=== PATIENT | female | born 1940 | race Caucasian/White ===

== ENCOUNTER → 2018-02-01 13:59 | Outpatient (CLI) | payer MEDICARE, SELFPAY ==
[2018-02-01 14:05] LABS: Mucous, Urine 0 SEEN /hpf (<or=2+)
[2018-02-01 16:47] LABS: Color, Urine Yellow (Yellow); Glucose, Dipstick 1000 mg/dl (Normal); Ketone-Dipstick Negative (Negative); Leukocyte Esterase-Dipstick 500 /ul (Negative); Nitrite-Dipstick Positive (Negative); Occult Blood-Urine 150 /ul (Negative); Protein-Dipstick 100 mg/dl (Negative); Urine Bilirubin Dipstick Negative (Negative); Urine Clarity Sl. Cloudy (Clear); Urine Urobilinogen Normal (Normal)
[2018-02-01 16:54] LABS: Bacteria 2+ /hpf (None Seen); Red Blood Cells-Urine 0 SEEN /hpf (0-5); Squamous Epithelial Cells - UA 0-5 SEEN /hpf (5-10); White Blood Cells 10-25 SEEN /hpf (0-5)
[2018-02-01 16:57] LABS: Albumin, Serum 4.2 g/dL (3.2-5.0); BUN 24 mg/dL (7-18); BUN/Creat Ratio 16.2 RATIO (10-20); Calcium,Total 9.4 mg/dL (8.5-10.1); Chloride 102 mmol/L (98-107); Creatinine, Serum 1.48 mg/dL (0.55-1.02); EST Glomerular Filtration Rate 36 mL/min (>60); Est Glom Filt Rate - Afr Amer 44 mL/min (>60); Glucose 318 mg/dL (74-106); Phosphorus 2.6 mg/dL (2.5-4.9); Potassium 4.2 mmol/L (3.5-5.1); Sodium Level 136 mmol/L (136-145)
[2018-02-01 17:05] LABS: Protein, Urine (Random) 88.9 mg/dL (<11.9); Protein:Creat Ratio 823 mg/g CRE (0-200)
[2018-02-07 09:57] LABS: Anti-Nuclear Antibody Test Negative (.)
== END ==
PROVIDERS: Visit Provider Internal Medicine Nephrology
DX: N18.3 Chronic kidney disease, stage 3 (moderate) (principal); E11.9 Type 2 diabetes mellitus without complications; R31.21 Asymptomatic microscopic hematuria
CPT/HCPCS: 36415; 80069; 81001; 82570; 84156; 86038

== ENCOUNTER 2018-03-17 07:42 | Inpatient (IN) | payer MEDICARE, MEDICAID, SELFPAY ==
[2018-03-17] VITALS (13 sets, daily range): BP systolic 142–178; BP diastolic 49–80; PULSE 50–67; RESP 14–24; TEMP 36.4–36.6; O2SAT 88–100; BMI 32.5; BMI 32.6; BMI 33.5
--- NOTE | 2018-03-17 09:01 | CT_ITS ---
STUDY: CT BRAIN WITHOUT CONTRAST REASON FOR EXAM: Female, 78 years old. Vertigo and hypertension. RADIATION DOSAGE (If Supplied By Facility): CTDIvol = ( 44.99 ) mGy, DLP = ( 728.62 ) mGycm TECHNIQUE: Transaxial CT imaging of the brain was performed without administration of intravenous contrast material. Individualized dose optimization techniques were used for this CT. COMPARISON: None. FINDINGS: Normal soft tissue structures. There is hyperostosis frontalis internus. There is mild cerebral atrophy with widening of the extra-axial spaces and ventricular dilatation. Normal white matter tracts of the cerebral hemispheres. Normal basal ganglia and thalami. Normal brainstem. Normal cerebellum. There is no intracranial hemorrhage. There are no findings of an acute ischemic infarction. Normal visualized paranasal sinuses. CT/Brain/Head without Contrast IMPRESSION: Chronic involutional changes of the brain. Electronically Signed: Jens Thurman MD at 10:22 EDT Tel [phone], Service support ,
--- NOTE | 2018-03-17 09:01 | RAD_ITS ---
STUDY: X-RAY CHEST REASON FOR EXAM: Female, 78 years old. Chest pain. TECHNIQUE: Single AP portable view of the chest. COMPARISON: None. FINDINGS: EKG electrodes are seen. There is evidence of gastric congestion and a mild degree of CHF. There is no demonstrated pleural abnormality. Sternal cerclage wires and vascular clips are present from a prior sternotomy and coronary artery bypass graft procedure (CABG). Normal mediastinum and holli. Normal visualized pulmonary arteries. Normal visualized aortic arch and descending thoracic aorta. Normal visualized thoracic spine. Normal visualized ribs, clavicles, and shoulders. There is no demonstrated abnormality of the visualized soft tissue structures of the upper abdomen. RAD/Chest 1 View (Portable) IMPRESSION: Findings in keeping with vascular congestion and mild degree of CHF. Electronically Signed: Jens Thurman MD at 10:19 EDT Tel [phone], Service support ,
--- NOTE | 2018-03-17 09:01 | EKG12_ITS ---
Test Reason : DIZZY Blood Pressure : / mmHG Vent. Rate : 059 BPM Atrial Rate : 059 BPM P-R Int : 214 ms QRS Dur : 146 ms QT Int : 506 ms P-R-T Axes : 099 -31 180 degrees QTc Int : 500 ms Sinus bradycardia with 1st degree A-V block Left axis deviation Left bundle branch block Abnormal ECG Confirmed by ALEK EL, SWATHI ([id number]), newspaper managing editor DAMIAN MCCRACKEN ([id number]) on 03/21/2018 3:43:47 PM Referred By: LILA Confirmed By:SWATHI GASTON MD
--- NOTE | 2018-03-17 09:03 | ED.VIS.GEN ---
History of Present Illness Chief Complaint: Dizziness Informant: Patient Onset: Today Context: Gradual Onset Timing: Continuous Quality: spinning Location: head Current Severity: Moderate Maximum Severity: Severe Worsened by: position changes but not by turning head Relieved by: remaining still Associated Symptoms: n/v Narrative: Patient got up out of bed this morning acutely dizzy/vertiginous. In further discussion, she states that this started at midnight but much more mild and she had mild vertigo throughout the night although she was able to sleep. This was about 9 hours prior to arrival, time of onset. She also is having pain in her right hip when she moves both of her legs, she did not fall or injury. For the past several months she has been having carpal tunnel syndrome in her right hand, for the past week or more she has had soreness in her right shoulder, feels like the pain is moving up, this is all worse with movement. She denies any injury of the shoulder or other injury. She denies a headache, recent URI, tinnitus, earache, other ear symptoms. No diplopia or vision changes. No other facial or extremity numbness/weakness other than the pre-existing symptoms in her right upper extremity. - Past Medical History (1) HTN (hypertension) Status: Chronic (2) CAD (coronary artery disease) Status: Chronic (3) Hx of CABG Status: Chronic (4) Carpal tunnel syndrome on right Status: Chronic Past Medical History - Allergies and Home Meds Allergies/Adverse Reactions: Allergies acetaminophen Allergy (Verified 03/17/18 07:43) Vomiting Primary Care Physician: Angus Chapa, JESU-C [Primary Care Provider] - Lives: Alone Smoking Status: Never smoker Review of Systems All systems negative except as indicated General: Reports: Malaise Eyes: Denies: Visual changes - bilaterally, Diplopia ENT: Denies: Bilateral ear pain, Sore throat Cardiovascular: Reports: Chest pain - heaviness, off and on chronically, daily; only there a little right now. tends to be worse w/ exertion. Respiratory: Denies: Dyspnea, Cough Gastrointestinal: Reports: Nausea, Vomiting. Denies: Abdominal pain, Diarrhea Genitourinary: Denies: Dysuria, Hematuria Musculoskeletal: Reports: Extremity Pain - right arm. right wrist. right hip off and on, all worse w/ movement.. Denies: Myalgias, Arthralgias, Neck pain, Back pain Skin: Denies: Rash Neurological: Reports: Parasthesia, Numbness. Denies: Headache, Weakness Physical Exam Vital Signs/Narrative: Vital Signs Temp Pulse Resp BP Pulse Ox 03/17/18 07:44 97.5 F L 67 18 162/59 H 95 Inital Vital Signs reviewed: Yes General: Well nourished, Well developed, Obese Head: Normocephalic, Atraumatic Eyes: Perrl, EOMI - w/o nystagmus ENT: Moist mucous membranes, No rhinorrhea, TM's clear. Negative for: Sinus tenderness Neck: Supple, Nontender, No JVD Cardiovascular: Regular rate, Regular rhythm, No murmurs Respiratory: No distress, CTA bilaterally, Chest nontender Abdomen: Soft, Nontender, Nondistended, Normal bowel sounds Back: Nontender, Normal Inspection. Negative for: CVA tenderness, Spinal tenderness Extremities: Nontender, Edema - 1+ bLE, - - positive tinels right medial tunnel. positive phalen. Skin: Normal color, No rash Neurological: Alert, Oriented x3, Cranial nerves II-XII grossly intact, Parasthesia - all right fingers including 5th, worst in thumb., Weakness - BLE - pt states due to pain in right hip w/ lifting Psychological: Normal affect Diagnostic/Tx/Re-eval Impressions Brain CT 03/17/18 09:01 IMPRESSION: Chronic involutional changes of the brain. Electronically Signed: Jens Thurman MD at 10:22 EDT Tel [phone], Service support , Chest X-Ray 03/17/18 09:01 IMPRESSION: Findings in keeping with vascular congestion and mild degree of CHF. Electronically Signed: Jens Thurman MD at 10:19 EDT Tel [phone], Service support , 03/17/18 09:01 Brain/Head without Contrast [CT] Stat Chest 1 View (Portable) [RAD] Stat Laboratory Results 03/17/18 03/17/18 03/17/18 Range/Units 09:10 09:10 10:05 WBC 7.0 (4.4-11.0) K/mm3 RBC 3.93 L (4.2-5.4) M/mm3 Hgb 11.9 L (12.0-15.0) g/dl Hct 36.3 L (37-47) % MCV 92.4 (81-99) fL MCH 30.3 (27.0-32.0) pg MCHC 32.8 (32-36) g/gl RDW 13.5 (11.6-14.6) % RDW Differential 44.5 H (35.1-43.9) fl Plt Count 243 (150-450) K/mm3 MPV 10.8 (6.2-12.0) fl Immature Gran % (Auto) 0.300 (0.0-0.9) % Neut % (Auto) 73.8 H (47-70) % Lymph % (Auto) 17.3 L (19-41) % [place] % (Auto) 5.7 (0-10) % Eos % (Auto) 2.3 (0-5) % Baso % (Auto) 0.6 (0-1) % Absolute Neuts (auto) 5.2 (2.0-7.7) X10^3/uL Absolute Lymphs (auto) 1.21 (0.83-4.51) X10^3/ul Total Counted Not Reportable Sodium 138 (136-145) mmol/L Potassium 4.1 (3.5-5.1) mmol/L Chloride 105 (98-107) mmol/L Carbon Dioxide 25.0 (21.0-32.0) mmol/L Anion Gap 8 (5-15) BUN 21 H (7-18) mg/dL Creatinine 1.38 H (0.55-1.02) mg/dL Estim Creat Clear Calc 29.48 ml/min Est GFR (MDRD) Af Amer 48 L (>60) mL/min Est GFR (MDRD) Non-Af 39 L (>60) mL/min BUN/Creatinine Ratio 15.2 (10-20) RATIO Glucose 160 H (74-106) mg/dL Calcium 8.8 (8.5-10.1) mg/dL Troponin I < 0.015 (<0.045) ng/mL Urine Color Yellow (Yellow) Urine Clarity Cloudy (Clear) Urine pH 6.5 (5.0 - 8.0) Ur Specific [place] 1.010 (1.002-1.030) Urine Protein 30 H (Negative) mg/dl Urine Glucose (UA) Normal (Normal) mg/dl Urine Ketones Negative (Negative) mg/dl Urine Occult Blood 25 H (Negative) /ul Urine Nitrite Positive H (Negative) Urine Bilirubin Negative (Negative) mg/dL Urine Urobilinogen Normal (Normal) mg/dl Ur Leukocyte Esterase 100 H (Negative) /ul Urine RBC 0 SEEN (0-5) /hpf Urine WBC 0-5 SEEN (0-5) /hpf Ur Squamous Epith Cells 0-5 SEEN (5-10) /hpf Urine Bacteria 3+ (None Seen) /hpf Urine Mucus 0 SEEN (<or=2+) /hpf - Rhythm Strip Rhythm Strip: Sinus Rhythm Rate: 60 Ectopy: None - EKG 1 Interpretation: Sinus Rhythm, No Acute Injury Pattern, LBBB Prior: Unchanged - Medical Decision Making Other than chronic renal insufficiency, chronic involutional changes of the brain, and chest x-ray consistent with venous congestion although she has had no dyspnea or orthopnea, her workup is unremarkable. Her EKG shows a left bundle branch block which is unchanged compared with her prior. Her symptoms are mostly consistent with peripheral vertigo. She is hypertensive, that could be related to her feeling uncomfortable, not having her blood pressure medications this morning yet, or it could be related to vertigo if it was central. Her symptoms do get worse with position changes, although she has no horizontal nystagmus and turning her head does not change anything. She was given Valium and a half dose of Phenergan, she is somnolent but easily arousable and her symptoms are improved, however with attempting to walk her, she got to the side of the bed and was miserably vertiginous. Will admit. ED Disposition - Plan for ED Patient: Disposition: Acute Care [facility] Chief Complaint: Upper Extremity Injury Diagnosis: Vertigo, peripheral, Carpal tunnel syndrome on right, Chest pain, unspecified
[2018-03-17] MEDS: proMETHazine 25 MG/ML Syringe 6.25 MG IV (09:21)
[2018-03-17] MEDS: diazePAM 5 MG Tablet PO (09:21)
[2018-03-17 09:28] LABS: Absolute Lymphocyte Count 1.21 X10^3/ul (0.83-4.51); Absolute Neutrophil Count 5.2 X10^3/uL (2.0-7.7); Basophil# 0.04 X10^3/uL; Basophil% 0.6 % (0-1); Eosinophil# 0.16 X10^3/uL; Eosinophils% 2.3 % (0-5); Hematocrit 36.3 % (37-47); Hemoglobin 11.9 g/dl (12.0-15.0); Lymphocyte # 1.21 X10^3/ul (4.0); Lymphocyte % 17.3 % (19-41); Mean Corp Hgb Conc 32.8 g/gl (32-36); Mean Corpuscular Hgb 30.3 pg (27.0-32.0); Mean Corpuscular Volume 92.4 fL (81-99); Mean Platelet Vol. 10.8 fl (6.2-12.0); Monocyte% 5.7 % (0-10); Neutrophil # 5.17 X10^3/uL (2.7-7.7); Neutrophil % 73.8 % (47-70); Platelet Count 243 K/mm3 (150-450); RBC Distribution Width CV 13.5 % (11.6-14.6); RBC Distribution Width SD 44.5 fl (35.1-43.9); Red Blood Count 3.93 M/mm3 (4.2-5.4)
[2018-03-17 09:36] LABS: Anion Gap 8 (5-15); BUN 21 mg/dL (7-18); BUN/Creat Ratio 15.2 RATIO (10-20); Calcium,Total 8.8 mg/dL (8.5-10.1); Chloride 105 mmol/L (98-107); Creatinine, Serum 1.38 mg/dL (0.55-1.02); EST Glomerular Filtration Rate 39 mL/min (>60); Est Glom Filt Rate - Afr Amer 48 mL/min (>60); Estimated Creatinine Clearance 29.48 ml/min; Glucose 160 mg/dL (74-106); Potassium 4.1 mmol/L (3.5-5.1); Sodium Level 138 mmol/L (136-145)
[2018-03-17 09:37] LABS: POSITIVE COUNT NO; POSITIVE DIFFERENTIAL NO; POSITIVE MORPHOLOGY NO
[2018-03-17 10:14] LABS: Mucous, Urine 0 SEEN /hpf (<or=2+); Red Blood Cells-Urine 0 SEEN /hpf (0-5)
[2018-03-17 10:16] LABS: Color, Urine Yellow (Yellow); Glucose, Dipstick Normal (Normal); Ketone-Dipstick Negative (Negative); Leukocyte Esterase-Dipstick 100 /ul (Negative); Nitrite-Dipstick Positive (Negative); Occult Blood-Urine 25 /ul (Negative); Protein-Dipstick 30 mg/dl (Negative); Urine Bilirubin Dipstick Negative (Negative); Urine Clarity Cloudy (Clear); Urine Urobilinogen Normal (Normal); Urine pH 6.5 (5.0 - 8.0)
[2018-03-17 10:21] LABS: Squamous Epithelial Cells - UA 0-5 SEEN /hpf (5-10); White Blood Cells 0-5 SEEN /hpf (0-5)
[2018-03-17 10:22] LABS: Bacteria 3+ /hpf (None Seen)
--- NOTE | 2018-03-17 11:17 | CM.ED ---
Social Work Note Into complete initial assessment as pt is targeted for admission. Introduced self and role at [facility]. The pt reports to live with her sister and brother in law in a ranch style home. She lives in the basement, but the kitchen is upstairs, so she does have to use a flight of stairs. Otherwise she has a bathroom and shower in the basement where her room is. Pt reports to be independent with ADL's. DME consists of a cane (primary), rollator, toiler riser and shower chair. Confirms that her PCP is Dr. Angus Chapa, Denies seeing any specialists. Her preferred pharmacy is [facility] in [place]. She denies having advanced directives and SW offers to provide her with copies to complete. Return with advanced directive documents and pt is being provided pt care. Her daughter, Cathy, is present and requests to speak with SW. States that the pt has been more confused, and that they recently completed advanced directives. She and her brother are both listed. They also completed a Living Will at that time. Request that they bring this documents in if needed. Reports that the pt does have a medical alert button and goes to [facility] 5 days/week. Cathy reports that the pt lost her in early January of this year. States that they have been trying to get everything in order to care for her in the home as long as possible. The pt ultimately wants to go to [facility] when that times comes as this is where her went on hospice and they were pleased with the care. At this time they do not anticipate any needs at discharge. Made aware that RN LURDES or NARCISA is available if needs arise. Shavon Correa, LINE LOCATOR, [employer]
--- NOTE | 2018-03-17 11:35 | NURSING ---
PCU CP, VERTIGO KORAM
--- NOTE | 2018-03-17 11:47 | NURSING ---
PCU OBS DIZZINESS, CP KORAM
--- NOTE | 2018-03-17 11:51 | NURSING ---
DR VILA IN ER
--- NOTE | 2018-03-17 11:55 | NURSING ---
Brenda notified patient may transfer to PCU.
--- NOTE | 2018-03-17 12:20 | MRI_ITS ---
STUDY: MRI BRAIN WITHOUT CONTRAST REASON FOR EXAM: Female, 78 years old. Vertigo TECHNIQUE: Standardized multiplanar fat and water weighted pulse sequences were obtained. COMPARISON: CT of the brain on March 17, 2018 FINDINGS: Mild atrophy and periventricular white matter ischemic changes without mass effect or restricted diffusion.. Normal bilateral basal ganglia. Normal thalami. There is no extra-axial fluid accumulation. Normal flow voids within the major intracranial circulation suggesting patency by spin echo criteria. Empty sella deformity of uncertain clinical significance. Normal, infundibular stalk, optic chiasm and hypothalamus. Normal tectal plate and pineal gland. Normal midbrain, yovana and medulla. Normal cerebellum. Normal basal cisterns. Normal bilateral temporal bones. Normal bilateral internal auditory canals. Increased signal intensity within the right mastoid air cells which may be due to inflammatory changes No demonstrated orbital abnormality, within the constraints of a routine brain study. Normal visualized paranasal sinuses. Normal calvarium and skull base. Normal visualized soft tissue structures. Normal visualized upper cervical spine. MRI/Brain without Contrast IMPRESSION: Minor atrophy and periventricular white matter ischemic changes without evidence for acute infarct. Electronically Signed: Kp Adame MD at 16:28 EDT , Service support ,
--- NOTE | 2018-03-17 12:24 | PCM.HP.STD ---
Problem List (1) Vertigo, peripheral Status: Acute (2) Chest pain, unspecified Status: Acute History of Present Illness Date of Admission: 03/17/18 Chief Complaint: vertigo The patient is a 78 year old F with past medical history of coronary artery disease status post CABG, hypertension, hyperlipidemia, diabetes, carpal tunnel syndrome of the right arm and memory loss. She was admitted via the ED on 03/17/2018 with a complaint of acute onset of vertigo. She states symptoms actually started around midnight but it was mild and woke her up this morning. It was very severe when she woke up this morning and was worsened by her moving her head. She felt like everything was spinning around her. She denied any recent history of upper respiratory symptoms or exposure to an upper respiratory infection. She denied any ear pain, any tinnitus, any hearing loss, any headache, any focal weakness or drooping of her mouth. She has never had such dizziness before in her life. She denied any abnormal movements of her eyelids. She also complained of increased pain along her right upper arm which has been present but had severely worsened and seemed like it was increased painful sensation. She had previously had surgery for right carpal tunnel syndrome in November and she states that with the pain stem from. Persistent nausea and vomiting but denied any diarrhea. Review of systems otherwise negative. In the ED, vitals showed temperature of 97.5 with pulse of 67 and respiratory rate of 18 as well as blood pressure 160/59. CT of the head done showed no acute changes. EKG showed left axis deviation with left bundle branch block. She has been admitted to be worked up for acute for [employer]. [] Past Medical History Past Medical History (Chronic Problems): Chronic Problems HTN (hypertension) (Chronic) CAD (coronary artery disease) (Chronic) Hx of CABG (Chronic) Carpal tunnel syndrome on right (Chronic) Allergies acetaminophen Allergy (Verified 03/17/18 07:43) Vomiting Home Medications: Ambulatory Orders Medication Instructions Recorded Aspirin E.C. [Ecotrin] 81 mg PO DAILY 03/17/18 Atorvastatin Calcium 40 mg PO DAILY 03/17/18 Ergocalciferol [Vitamin D] 50,000 unit PO Q7D 03/17/18 Ferrous Sulfate [Iron] 325 mg PO DAILY 03/17/18 Gabapentin [Neurontin] 300 mg PO QHS 03/17/18 Insulin Detemir [Levemir FlexPen] 30 units SQ DAILY 03/17/18 Levothyroxine Sodium [Synthroid] 112 mcg PO DAILY 03/17/18 Losartan Potassium [Cozaar] 50 mg PO DAILY 03/17/18 Metoprolol Tartrate [Lopressor 50 mg PO BID 03/17/18 (Beta Carloz)] Oxycodone [Oxyir] 5 mg PO Q4H PRN PRN 03/17/18 Surgical History: coronary bypass surgery, - - Right carpal tunnel surgery Psychiatric History: No pertinent psych hx ANIMAL CARE GIVER History: No pertinent ANIMAL CARE GIVER history Lives: Alone, With Family Smoking Status: Never smoker Alcohol: None Drugs: None Review of Systems Constitutional: Reports: Malaise, Weakness. Denies: Chills, Fever, Weight Change Eyes: Denies: Blurred vision, Double vision, Vision Change HEENT: Denies: Difficulty Hearing, Ear Pain, Hard of Hearing, Nasal Congestion, Sore Throat, Visual Changes Cardiovascular: Reports: Chest Pain - Retrosternal burning chest pain with no aggravating or relieving factors.. Denies: Chest Pressure, Chest Tightness, Orthopnea, Palpitations, Paroxysmal Noc. Dyspnea, Syncope Respiratory: Denies: Cough, Shortness of breath at rest, Sputum production Gastrointestinal: Reports: Nausea, Vomiting. Denies: Abdominal Pain Genitourinary: Denies: Dysuria Musculoskeletal: Reports: Arm Pain - Right upper extremity pain which she describes as a painful sensation over the upper aspect of the right arm which has increased acutely since this morning. Chronic pain from carpal tunnel and right upper extremity Skin: Denies: Rash, Wounds Neurological: Reports: Numbness, Tingling. Denies: Balance problems, Blurred vision, Double vision, Change in Speech, Slurred speech, Confusion, Headaches, Incoordination, Tremor, Seizures Psychiatric: Denies: Anxiety, Depression, Homicidal Ideations, Suicidal Ideations VTE Information - Inpt Only VTE Present on Admission: No VTE Mechan Device Prophylaxis: SCD's VTE Pharm Prophylaxis ordered?: Yes Patient Problems: Active and Suspected Problems Vertigo, peripheral (Acute) Chest pain, unspecified (Acute) - Physical Exam General: Alert, Oriented x3, Cooperative, - - Moderate distress from dizziness HEENT: Atraumatic, PERRLA, EOMI, Normocephalic Oral: Moist Mucosa Neck: Supple, No JVD, No Nodes Lungs: Clear to auscultation, Normal air movement, No rhonchi, No wheeze Cardiovascular: Regular rate, Regular Rhythm, Normal S1, Normal S2, No murmurs, - - Mild carotid bruit present bilaterally Abdomen: Bowel Sounds Present, Soft, Non Tender, Non-Distended, No Hepato-splenomegaly Extremities: Capillary Refill Less than 3 Seconds, - - Mild +2 pitting edema bilaterally Skin: No rashes, No breakdown, - Musculoskeletal: No Tenderness to Palpation of Joints or Extremities Lymphatic: No Cervical, Supraclavicular, or Inguinal Adenopathy Neurological: Cranial nerves II-XII grossly intact, Motor Exam 5/5 strength throughout, - - Has hyperesthesia of right upper extremity. Reflexes depressed in all upper extremities 1+. Pronator drift negative. Cerebellar exam WNL. Gait not assessed. Unable to do Mitzi Hallpike testing as patient got uncomfortable even with sitting up. No nystagmus seen. Psych/Mental Status: Anxious Vital Signs Temp Pulse Resp BP Pulse Ox 97.5 F L 53 L 14 142/53 H 88 03/17/18 07:44 03/17/18 11:35 03/17/18 11:35 03/17/18 11:35 03/17/18 11:35 Assessment/Plan All Active Problems Vertigo, peripheral (Acute) Chest pain, unspecified (Acute) Impressions Brain CT 03/17/18 09:01 IMPRESSION: Chronic involutional changes of the brain. Electronically Signed: Jens Thurman MD at 10:22 EDT Tel [phone], Service support , Chest X-Ray 03/17/18 09:01 IMPRESSION: Findings in keeping with vascular congestion and mild degree of CHF. Electronically Signed: Jens Thurman MD at 10:19 EDT Tel [phone], Service support , 03/17/18 09:01 Brain/Head without Contrast [CT] Stat Chest 1 View (Portable) [RAD] Stat 03/17/18 12:20 MRI Brain [Brain without Contrast] [MRI] Urgent Laboratory Results 03/17/18 03/17/18 03/17/18 Range/Units 09:10 09:10 10:05 WBC 7.0 (4.4-11.0) K/mm3 RBC 3.93 L (4.2-5.4) M/mm3 Hgb 11.9 L (12.0-15.0) g/dl Hct 36.3 L (37-47) % MCV 92.4 (81-99) fL MCH 30.3 (27.0-32.0) pg MCHC 32.8 (32-36) g/gl RDW 13.5 (11.6-14.6) % RDW Differential 44.5 H (35.1-43.9) fl Plt Count 243 (150-450) K/mm3 MPV 10.8 (6.2-12.0) fl Immature Gran % (Auto) 0.300 (0.0-0.9) % Neut % (Auto) 73.8 H (47-70) % Lymph % (Auto) 17.3 L (19-41) % [place] % (Auto) 5.7 (0-10) % Eos % (Auto) 2.3 (0-5) % Baso % (Auto) 0.6 (0-1) % Absolute Neuts (auto) 5.2 (2.0-7.7) X10^3/uL Absolute Lymphs (auto) 1.21 (0.83-4.51) X10^3/ul Total Counted Not Reportable Sodium 138 (136-145) mmol/L Potassium 4.1 (3.5-5.1) mmol/L Chloride 105 (98-107) mmol/L Carbon Dioxide 25.0 (21.0-32.0) mmol/L Anion Gap 8 (5-15) BUN 21 H (7-18) mg/dL Creatinine 1.38 H (0.55-1.02) mg/dL Estim Creat Clear Calc 29.48 ml/min Est GFR (MDRD) Af Amer 48 L (>60) mL/min Est GFR (MDRD) Non-Af 39 L (>60) mL/min BUN/Creatinine Ratio 15.2 (10-20) RATIO Glucose 160 H (74-106) mg/dL Calcium 8.8 (8.5-10.1) mg/dL Troponin I < 0.015 (<0.045) ng/mL Urine Color Yellow (Yellow) Urine Clarity Cloudy (Clear) Urine pH 6.5 (5.0 - 8.0) Ur Specific [place] 1.010 (1.002-1.030) Urine Protein 30 H (Negative) mg/dl Urine Glucose (UA) Normal (Normal) mg/dl Urine Ketones Negative (Negative) mg/dl Urine Occult Blood 25 H (Negative) /ul Urine Nitrite Positive H (Negative) Urine Bilirubin Negative (Negative) mg/dL Urine Urobilinogen Normal (Normal) mg/dl Ur Leukocyte Esterase 100 H (Negative) /ul Urine RBC 0 SEEN (0-5) /hpf Urine WBC 0-5 SEEN (0-5) /hpf Ur Squamous Epith Cells 0-5 SEEN (5-10) /hpf Urine Bacteria 3+ (None Seen) /hpf Urine Mucus 0 SEEN (<or=2+) /hpf 78-year-old female with a history of coronary artery disease status post CABG, hypertension, diabetes presented with acute onset of vertigo this morning. 1. Vertigo Onset of vertigo. Aggravated by moving around. No history of vertigo previously Ear examination only positive for dizziness and hyperesthesia of right upper extremity. Reflexes mildly decreased in all extremities. No acute focal neurological impairment on examination. NIH stroke scale- Will admit to PCU with telemetry. EKG showed left axis deviation with left bundle branch block. X-ray was suggestive of congestive heart failure Will check BNP. Labs were otherwise noncontributory. Initial troponin was less than 0.015. CT of the head showed only involutional changes associated with aging and no acute findings In light of patient's acute onset of vertigo no history of it and extensive cardiac history, I am concerned about a vertebrobasilar stroke. Will get MRI of the brain without contrast to assess for vertebrobasilar stroke and rule it out. On aspirin, statin. Will continue. Fall precautions. 2. Atypical chest pain, will want to rule out ACS Please of the burning retrosternal chest pain which is episodic. EKG as documented above initial troponin negative; will cycle and monitor 3. Diabetes mellitus: accuchecks ACHS. Continue home insulin dose 4, Hypertension: controlled. WIll continue home meds 5. Right carpal tunnel syndrome s/p surgery: still complains of pain in RUE. WIll get xray of RUE and monitor. Tyelenol for pain 6. DVT prophylaxis: heparin 8. Code Visit OBSV E&M: 69216 Initial observation care L2
--- NOTE | 2018-03-17 12:35 | HP.PCM_ITS ---
Problem List (1) Vertigo, peripheral Status: Acute (2) Chest pain, unspecified Status: Acute History of Present Illness Date of Admission: 03/17/18 Chief Complaint: vertigo The patient is a 78 year old F with past medical history of coronary artery disease status post CABG, hypertension, hyperlipidemia, diabetes, carpal tunnel syndrome of the right arm and memory loss. She was admitted via the ED on 2017 with a complaint of acute onset of vertigo. She states symptoms actually started around midnight but it was mild and woke her up this morning. It was very severe when she woke up this morning and was worsened by her moving her head. She felt like everything was spinning around her. She denied any recent history of upper respiratory symptoms or exposure to an upper respiratory infection. She denied any ear pain, any tinnitus, any hearing loss, any headache, any focal weakness or drooping of her mouth. She has never had such dizziness before in her life. She denied any abnormal movements of her eyelids. She also complained of increased pain along her right upper arm which has been present but had severely worsened and seemed like it was increased painful sensation. She had previously had surgery for right carpal tunnel syndrome in November and she states that with the pain stem from. Persistent nausea and vomiting but denied any diarrhea. Review of systems otherwise negative. In the ED, vitals showed temperature of 97.5 with pulse of 67 and respiratory rate of 18 as well as blood pressure 160/59. CT of the head done showed no acute changes. EKG showed left axis deviation with left bundle branch block. She has been admitted to be worked up for acute for [employer]. [] Past Medical History Past Medical History (Chronic Problems): Chronic Problems HTN (hypertension) (Chronic) CAD (coronary artery disease) (Chronic) Hx of CABG (Chronic) Carpal tunnel syndrome on right (Chronic) Allergies acetaminophen Allergy (Verified 03/17/18 07:43) Vomiting Home Medications: Ambulatory Orders Medication Instructions Recorded Aspirin E.C. [Ecotrin] 81 mg PO DAILY 03/17/18 Atorvastatin Calcium 40 mg PO DAILY 03/17/18 Ergocalciferol [Vitamin D] 50,000 unit PO Q7D 03/17/18 Ferrous Sulfate [Iron] 325 mg PO DAILY 03/17/18 Gabapentin [Neurontin] 300 mg PO QHS 03/17/18 Insulin Detemir [Levemir FlexPen] 30 units SQ DAILY 03/17/18 Levothyroxine Sodium [Synthroid] 112 mcg PO DAILY 03/17/18 Losartan Potassium [Cozaar] 50 mg PO DAILY 03/17/18 Metoprolol Tartrate [Lopressor 50 mg PO BID 03/17/18 (Beta Carloz)] Oxycodone [Oxyir] 5 mg PO Q4H PRN PRN 03/17/18 Surgical History: coronary bypass surgery, - - Right carpal tunnel surgery Psychiatric History: No pertinent psych hx 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 Denies: Chills, Fever, Weight Change Eyes: Denies: Blurred vision, Double vision, Vision Change HEENT: Denies: Difficulty Hearing, Ear Pain, Hard of Hearing, Nasal Congestion, Sore Throat, Visual Changes Cardiovascular: Reports: Chest Pain - Retrosternal burning chest pain with no aggravating or relieving factors.. Denies: Chest Pressure, Chest Tightness, Orthopnea, Palpitations, Paroxysmal Noc. Dyspnea, Syncope Respiratory: Denies: Cough, Shortness of breath at rest, Sputum production Gastrointestinal: Reports: Nausea, Vomiting. Denies: Abdominal Pain Genitourinary: Denies: Dysuria Musculoskeletal: Reports: Arm Pain - Right upper extremity pain which she describes as a painful sensation over the upper aspect of the right arm which has increased acutely since this morning. Chronic pain from carpal tunnel and right upper extremity Skin: Denies: Rash, Wounds Neurological: Reports: Numbness, Tingling. Denies: Balance problems, Blurred vision, Double vision, Change in Speech, Slurred speech, Confusion, Headaches, Incoordination, Tremor, Seizures Psychiatric: Denies: Anxiety, Depression, Homicidal Ideations, Suicidal Ideations VTE Information - Inpt Only VTE Present on Admission: No VTE Mechan Device Prophylaxis: SCD's VTE Pharm Prophylaxis ordered?: Yes Patient Problems: Active and Suspected Problems Vertigo, peripheral (Acute) Chest pain, unspecified (Acute) - Physical Exam General: Alert, Oriented x3, Cooperative, - - Moderate distress from dizziness HEENT: Atraumatic, PERRLA, EOMI, Normocephalic Oral: Moist Mucosa Neck: Supple, No JVD, No Nodes Lungs: Clear to auscultation, Normal air movement, No rhonchi, No wheeze Cardiovascular: Regular rate, Regular Rhythm, Normal S1, Normal S2, No murmurs, - - Mild carotid bruit present bilaterally Abdomen: Bowel Sounds Present, Soft, Non Tender, Non-Distended, No Hepato- splenomegaly Extremities: Capillary Refill Less than 3 Seconds, - - Mild +2 pitting edema bilaterally Skin: No rashes, No breakdown, - Musculoskeletal: No Tenderness to Palpation of Joints or Extremities Lymphatic: No Cervical, Supraclavicular, or Inguinal Adenopathy Neurological: Cranial nerves II-XII grossly intact, Motor Exam 5/5 strength throughout, - - Has hyperesthesia of right upper extremity. Reflexes depressed in all upper extremities 1+. Pronator drift negative. Cerebellar exam WNL. Gait not assessed. Unable to do [place] Hall[place] testing as patient got uncomfortable even with sitting up. No nystagmus seen. Psych/Mental Status: Anxious Vital Signs Temp Pulse Resp BP Pulse Ox 97.5 F L 53 L 14 142/53 H 88 03/17/18 07:44 03/17/18 11:35 03/17/18 11:35 03/17/18 11:35 03/17/18 11:35 Assessment/Plan All Active Problems Vertigo, peripheral (Acute) Chest pain, unspecified (Acute) Impressions Brain CT 03/17/18 09:01 IMPRESSION: Chronic involutional changes of the brain. Electronically Signed: Jens Thurman MD at 10:22 EDT Tel [phone], Service support , Chest X-Ray 03/17/18 09:01 IMPRESSION: Findings in keeping with vascular congestion and mild degree of CHF. Electronically Signed: Jens Thurman MD at 10:19 EDT Tel [phone], Service support , 03/17/18 09:01 Brain/Head without Contrast [CT] Stat Chest 1 View (Portable) [RAD] Stat 03/17/18 12:20 MRI Brain [Brain without Contrast] [MRI] Urgent Laboratory Results 03/17/18 03/17/18 03/17/18 Range/Units 09:10 09:10 10:05 WBC 7.0 (4.4-11.0) K/mm3 RBC 3.93 L (4.2-5.4) M/mm3 Hgb 11.9 L (12.0-15.0) g/dl Hct 36.3 L (37-47) % MCV 92.4 (81-99) fL MCH 30.3 (27.0-32.0) pg MCHC 32.8 (32-36) g/gl RDW 13.5 (11.6-14.6) % RDW Differential 44.5 H (35.1-43.9) fl Plt Count 243 (150-450) K/mm3 MPV 10.8 (6.2-12.0) fl Immature Gran % (Auto) 0.300 (0.0-0.9) % Neut % (Auto) 73.8 H (47-70) % Lymph % (Auto) 17.3 L (19-41) % [place] % (Auto) 5.7 (0-10) % Eos % (Auto) 2.3 (0-5) % Baso % (Auto) 0.6 (0-1) % Absolute Neuts (auto) 5.2 (2.0-7.7) X10^3/uL Absolute Lymphs (auto) 1.21 (0.83-4.51) X10^3/ul Total Counted Not Reportable Sodium 138 (136-145) mmol/L Potassium 4.1 (3.5-5.1) mmol/L Chloride 105 (98-107) mmol/L Carbon Dioxide 25.0 (21.0-32.0) mmol/L Anion Gap 8 (5-15) BUN 21 H (7-18) mg/dL Creatinine 1.38 H (0.55-1.02) mg/dL Estim Creat Clear Calc 29.48 ml/min Est GFR (MDRD) Af Amer 48 L (>60) mL/min Est GFR (MDRD) Non-Af 39 L (>60) mL/min BUN/Creatinine Ratio 15.2 (10-20) RATIO Glucose 160 H (74-106) mg/dL Calcium 8.8 (8.5-10.1) mg/dL Troponin I < 0.015 (<0.045) ng/mL Urine Color Yellow (Yellow) Urine Clarity Cloudy (Clear) Urine pH 6.5 (5.0 - 8.0) Ur Specific [place] 1.010 (1.002-1.030) Urine Protein 30 H (Negative) mg/dl Urine Glucose (UA) Normal (Normal) mg/dl Urine Ketones Negative (Negative) mg/dl Urine Occult Blood 25 H (Negative) /ul Urine Nitrite Positive H (Negative) Urine Bilirubin Negative (Negative) mg/dL Urine Urobilinogen Normal (Normal) mg/dl Ur Leukocyte Esterase 100 H (Negative) /ul Urine RBC 0 SEEN (0-5) /hpf Urine WBC 0-5 SEEN (0-5) /hpf Ur Squamous Epith Cells 0-5 SEEN (5-10) /hpf Urine Bacteria 3+ (None Seen) /hpf Urine Mucus 0 SEEN (<or=2+) /hpf 78-year-old female with a history of coronary artery disease status post CABG, hypertension, diabetes presented with acute onset of vertigo this morning. 1. Vertigo * Onset of vertigo. Aggravated by moving around. No history of vertigo previously * Ear examination only positive for dizziness and hyperesthesia of right upper extremity. Reflexes mildly decreased in all extremities. No acute focal neurological impairment on examination. * NIH stroke scale- * Will admit to PCU with telemetry. * EKG showed left axis deviation with left bundle branch block. * X-ray was suggestive of congestive heart failure * Will check BNP. Labs were otherwise noncontributory. * Initial troponin was less than 0.015. * CT of the head showed only involutional changes associated with aging and no acute findings * In light of patient's acute onset of vertigo no history of it and extensive cardiac history, I am concerned about a vertebrobasilar stroke. * Will get MRI of the brain without contrast to assess for vertebrobasilar stroke and rule it out. * On aspirin, statin. Will continue. * Fall precautions. * 2. Atypical chest pain, will want to rule out ACS * Please of the burning retrosternal chest pain which is episodic. * EKG as documented above * initial troponin negative; will cycle and monitor * 3. Diabetes mellitus: accuchecks ACHS. Continue home insulin dose 4, Hypertension: controlled. WIll continue home meds 5. Right carpal tunnel syndrome s/p surgery: still complains of pain in RUE. WIll get xray of RUE and monitor. Tyelenol for pain 6. DVT prophylaxis: heparin 8. Code Visit OBSV E&M: 99332 Initial observation care L2
[2018-03-17 13:16] LABS: Bedside Glucose 159 mg/dL (70-110)
[2018-03-17] MEDS: Meclizine HCl 25 MG Tablet PO (13:18)
[2018-03-17] MEDS: proMETHazine 25 MG/ML Syringe 12.5 MG IV (13:18)
--- NOTE | 2018-03-17 15:34 | RAD_ITS ---
STUDY: X-RAY - RIGHT ELBOW REASON FOR EXAM: Female, 78 years old. Pain TECHNIQUE: 2 view(s) of the elbow. COMPARISON: None. FINDINGS: Normal visualized humerus, radius and ulna. Normal radiocapitellar and ulnotrochlear articulations. The soft tissue structures are unremarkable. RAD/Elbow 2 Views IMPRESSION: Normal x-ray examination of the elbow. Electronically Signed: Kp Adame MD at 19:41 EDT , Service support ,
--- NOTE | 2018-03-17 15:43 | RAD_ITS ---
STUDY: X-RAY - RIGHT SHOULDER REASON FOR EXAM: Female, 78 years old. Pain TECHNIQUE: 2 view(s) of the shoulder. COMPARISON: None. FINDINGS: Narrowed glenohumeral articulation. Normal acromioclavicular joint. Normal acromion. Normal humeral head and visualized proximal humerus. The soft tissue structures are unremarkable. Normal visualized pulmonary apex. RAD/Shoulder min 2 Views IMPRESSION: Degenerative changes. No evidence for acute fracture Electronically Signed: Kp Adame MD at 19:40 EDT , Service support ,
--- NOTE | 2018-03-17 15:49 | RAD_ITS ---
STUDY: X-RAY - RIGHT WRIST REASON FOR EXAM: Female, 78 years old. Pain TECHNIQUE: 2 view(s) of the wrist were obtained. COMPARISON: None. FINDINGS: Normal visualized distal radius and ulna. Normal radiocarpal articulation. Normal distal radioulnar articulation. Normal carpal bones. Normal carpal articulations. Normal carpometacarpal articulation of the thumb. Normal second through fifth carpometacarpal articulations. Normal visualized metacarpal bones. Mild calcification of the triangular fibrocartilage.. RAD/Wrist 2 Views IMPRESSION: Mild arthritic changes. No evidence for acute fracture Electronically Signed: Kp Adame MD at 19:40 EDT , Service support ,
[2018-03-17 16:31] LABS: Bedside Glucose 126 mg/dL (70-110)
[2018-03-17] MEDS: 0.9% Normal Saline 1,000 ML 100 ML IV (16:52)
[2018-03-17] MEDS: Heparin Injection (Vial) 5,000 UNIT/ML VIAL 5000 UNIT SC (17:00)
[2018-03-17] MEDS: oxyCODONE 5 MG Tablet PO ×2 (17:00→21:37)
--- NOTE | 2018-03-17 17:24 | ED.DCSUM_ITS ---
History of Present Illness Chief Complaint: Dizziness Informant: Patient Onset: Today Context: Gradual Onset Timing: Continuous Quality: spinning Location: head Current Severity: Moderate Maximum Severity: Severe Worsened by: position changes but not by turning head Relieved by: remaining still Associated Symptoms: n/v Narrative: Patient got up out of bed this morning acutely dizzy/vertiginous. In further discussion, she states that this started at midnight but much more mild and she had mild vertigo throughout the night although she was able to sleep. This was about 9 hours prior to arrival, time of onset. She also is having pain in her right hip when she moves both of her legs, she did not fall or injury. For the past several months she has been having carpal tunnel syndrome in her right hand , for the past week or more she has had soreness in her right shoulder, feels like the pain is moving up, this is all worse with movement. She denies any injury of the shoulder or other injury. She denies a headache, recent URI, tinnitus, earache, other ear symptoms. No diplopia or vision changes. No other facial or extremity numbness/weakness other than the pre-existing symptoms in her right upper extremity. - Past Medical History (1) HTN (hypertension) Status: Chronic (2) CAD (coronary artery disease) Status: Chronic (3) Hx of CABG Status: Chronic (4) Carpal tunnel syndrome on right Status: Chronic Past Medical History - Allergies and Home Meds Allergies/Adverse Reactions: Allergies acetaminophen Allergy (Verified 03/17/18 07:43) Vomiting Primary Care Physician: Angus Chapa, JESU-C [Primary Care Provider] - Lives: Alone Smoking Status: Never smoker Review of Systems All systems negative except as indicated General: Reports: Malaise Eyes: Denies: Visual changes - bilaterally, Diplopia ENT: Denies: Bilateral ear pain, Sore throat Cardiovascular: Reports: Chest pain - heaviness, off and on chronically, daily; only there a little right now. tends to be worse w/ exertion. Respiratory: Denies: Dyspnea, Cough Gastrointestinal: Reports: Nausea, Vomiting. Denies: Abdominal pain, Diarrhea Genitourinary: Denies: Dysuria, Hematuria Musculoskeletal: Reports: Extremity Pain - right arm. right wrist. right hip off and on, all worse w/ movement.. Denies: Myalgias, Arthralgias, Neck pain, Back pain Skin: Denies: Rash Neurological: Reports: Parasthesia, Numbness. Denies: Headache, Weakness Physical Exam Vital Signs/Narrative: Vital Signs Temp Pulse Resp BP Pulse Ox 03/17/18 07:44 97.5 F L 67 18 162/59 H 95 Inital Vital Signs reviewed: Yes General: Well nourished, Well developed, Obese Head: Normocephalic, Atraumatic Eyes: Perrl, EOMI - w/o nystagmus ENT: Moist mucous membranes, No rhinorrhea, TM's clear. Negative for: Sinus tenderness Neck: Supple, Nontender, No JVD Cardiovascular: Regular rate, Regular rhythm, No murmurs Respiratory: No distress, CTA bilaterally, Chest nontender Abdomen: Soft, Nontender, Nondistended, Normal bowel sounds Back: Nontender, Normal Inspection. Negative for: CVA tenderness, Spinal tenderness Extremities: Nontender, Edema - 1+ bLE, - - positive tinels right medial tunnel. positive phalen. Skin: Normal color, No rash Neurological: Alert, Oriented x3, Cranial nerves II-XII grossly intact, Parasthesia - all right fingers including 5th, worst in thumb., Weakness - BLE - pt states due to pain in right hip w/ lifting Psychological: Normal affect Diagnostic/Tx/Re-eval Impressions Brain CT 03/17/18 09:01 IMPRESSION: Chronic involutional changes of the brain. Electronically Signed: Jens Thurman MD at 10:22 EDT Tel [phone], Service support , Chest X-Ray 03/17/18 09:01 IMPRESSION: Findings in keeping with vascular congestion and mild degree of CHF. Electronically Signed: Jens Thurman MD at 10:19 EDT Tel [phone], Service support , 03/17/18 09:01 Brain/Head without Contrast [CT] Stat Chest 1 View (Portable) [RAD] Stat Laboratory Results 03/17/18 03/17/18 03/17/18 Range/Units 09:10 09:10 10:05 WBC 7.0 (4.4-11.0) K/mm3 RBC 3.93 L (4.2-5.4) M/mm3 Hgb 11.9 L (12.0-15.0) g/dl Hct 36.3 L (37-47) % MCV 92.4 (81-99) fL MCH 30.3 (27.0-32.0) pg MCHC 32.8 (32-36) g/gl RDW 13.5 (11.6-14.6) % RDW Differential 44.5 H (35.1-43.9) fl Plt Count 243 (150-450) K/mm3 MPV 10.8 (6.2-12.0) fl Immature Gran % (Auto) 0.300 (0.0-0.9) % Neut % (Auto) 73.8 H (47-70) % Lymph % (Auto) 17.3 L (19-41) % [place] % (Auto) 5.7 (0-10) % Eos % (Auto) 2.3 (0-5) % Baso % (Auto) 0.6 (0-1) % Absolute Neuts (auto) 5.2 (2.0-7.7) X10^3/uL Absolute Lymphs (auto) 1.21 (0.83-4.51) X10^3/ul Total Counted Not Reportable Sodium 138 (136-145) mmol/L Potassium 4.1 (3.5-5.1) mmol/L Chloride 105 (98-107) mmol/L Carbon Dioxide 25.0 (21.0-32.0) mmol/L Anion Gap 8 (5-15) BUN 21 H (7-18) mg/dL Creatinine 1.38 H (0.55-1.02) mg/dL Estim Creat Clear Calc 29.48 ml/min Est GFR (MDRD) Af Amer 48 L (>60) mL/min Est GFR (MDRD) Non-Af 39 L (>60) mL/min BUN/Creatinine Ratio 15.2 (10-20) RATIO Glucose 160 H (74-106) mg/dL Calcium 8.8 (8.5-10.1) mg/dL Troponin I < 0.015 (<0.045) ng/mL Urine Color Yellow (Yellow) Urine Clarity Cloudy (Clear) Urine pH 6.5 (5.0 - 8.0) Ur Specific [place] 1.010 (1.002-1.030) Urine Protein 30 H (Negative) mg/dl Urine Glucose (UA) Normal (Normal) mg/dl Urine Ketones Negative (Negative) mg/dl Urine Occult Blood 25 H (Negative) /ul Urine Nitrite Positive H (Negative) Urine Bilirubin Negative (Negative) mg/dL Urine Urobilinogen Normal (Normal) mg/dl Ur Leukocyte Esterase 100 H (Negative) /ul Urine RBC 0 SEEN (0-5) /hpf Urine WBC 0-5 SEEN (0-5) /hpf Ur Squamous Epith Cells 0-5 SEEN (5-10) /hpf Urine Bacteria 3+ (None Seen) /hpf Urine Mucus 0 SEEN (<or=2+) /hpf - Rhythm Strip Rhythm Strip: Sinus Rhythm Rate: 60 Ectopy: None - EKG 1 Interpretation: Sinus Rhythm, No Acute Injury Pattern, LBBB Prior: Unchanged - Medical Decision Making Other than chronic renal insufficiency, chronic involutional changes of the brain, and chest x-ray consistent with venous congestion although she has had no dyspnea or orthopnea, her workup is unremarkable. Her EKG shows a left bundle branch block which is unchanged compared with her prior. Her symptoms are mostly consistent with peripheral vertigo. She is hypertensive, that could be related to her feeling uncomfortable, not having her blood pressure medications this morning yet, or it could be related to vertigo if it was central. Her symptoms do get worse with position changes, although she has no horizontal nystagmus and turning her head does not change anything. She was given Valium and a half dose of Phenergan, she is somnolent but easily arousable and her symptoms are improved, however with attempting to walk her, she got to the side of the bed and was miserably vertiginous. Will admit. ED Disposition - Plan for ED Patient: Disposition: Acute Care Hospital [facility] Chief Complaint: Upper Extremity Injury Diagnosis: Vertigo, peripheral, Carpal tunnel syndrome on right, Chest pain, unspecified
[2018-03-17] MEDS: Metoprolol Tartrate 50 MG Tablet PO (21:38)
[2018-03-17] MEDS: Gabapentin 300 MG Capsule PO (21:40)
[2018-03-17] MEDS: Insulin Lispro 100 UNIT/ML INSULN.PEN SQ (21:41)
[2018-03-17 23:21] LABS: Bedside Glucose 152 mg/dL (70-110)
[2018-03-18] VITALS (13 sets, daily range): BP systolic 118–152; BP diastolic 39–67; PULSE 44–60; RESP 14–18; TEMP 36.5–36.9; O2SAT 95–98
[2018-03-18] MEDS: oxyCODONE 5 MG Tablet PO ×2 (03:07→21:38)
[2018-03-18] MEDS: Meclizine HCl 25 MG Tablet PO ×2 (03:09→18:01)
[2018-03-18] MEDS: Heparin Injection (Vial) 5,000 UNIT/ML VIAL 5000 UNIT SC ×3 (05:34→21:38)
[2018-03-18] MEDS: Levothyroxine 112 MCG Tablet PO (05:34)
[2018-03-18 06:20] LABS: Absolute Lymphocyte Count 2.41 X10^3/ul (0.83-4.51); Absolute Neutrophil Count 3.1 X10^3/uL (2.0-7.7); Basophil# 0.04 X10^3/uL; Basophil% 0.6 % (0-1); Eosinophil# 0.31 X10^3/uL; Hematocrit 35.1 % (37-47); Hemoglobin 11.1 g/dl (12.0-15.0); Lymphocyte # 2.41 X10^3/ul (4.0); Lymphocyte % 38.9 % (19-41); Mean Corp Hgb Conc 31.6 g/gl (32-36); Mean Corpuscular Hgb 30.2 pg (27.0-32.0); Mean Corpuscular Volume 95.4 fL (81-99); Monocyte# 0.37 X10^3/uL; Neutrophil # 3.06 X10^3/uL (2.7-7.7); Neutrophil % 49.3 % (47-70); Platelet Count 241 K/mm3 (150-450); RBC Distribution Width CV 13.9 % (11.6-14.6); RBC Distribution Width SD 46.3 fl (35.1-43.9); Red Blood Count 3.68 M/mm3 (4.2-5.4); White Blood Count 6.2 K/mm3 (4.4-11.0)
[2018-03-18 06:24] LABS: POSITIVE COUNT NO; POSITIVE DIFFERENTIAL NO; POSITIVE MORPHOLOGY NO
[2018-03-18 06:54] LABS: Anion Gap 7 (5-15); BUN 20 mg/dL (7-18); BUN/Creat Ratio 15.6 RATIO (10-20); Calcium,Total 8.4 mg/dL (8.5-10.1); Chloride 106 mmol/L (98-107); Creatinine, Serum 1.28 mg/dL (0.55-1.02); EST Glomerular Filtration Rate 43 mL/min (>60); Est Glom Filt Rate - Afr Amer 52 mL/min (>60); Estimated Creatinine Clearance 31.78 ml/min; Glucose 144 mg/dL (74-106); Potassium 4.5 mmol/L (3.5-5.1); Sodium Level 138 mmol/L (136-145)
[2018-03-18 07:05] LABS: Bedside Glucose 146 mg/dL (70-110)
[2018-03-18] MEDS: Ferrous Sulfate 325 MG Tablet PO (08:22)
[2018-03-18] MEDS: Aspirin E.C. 81 MG Tablet PO (08:22)
[2018-03-18] MEDS: Metoprolol Tartrate 50 MG Tablet PO ×2 (09:30→21:39)
[2018-03-18] MEDS: Losartan Potassium 50 MG Tablet PO (09:30)
[2018-03-18] MEDS: Atorvastatin Calcium 40 MG Tablet PO (09:30)
--- NOTE | 2018-03-18 11:05 | PCM.PN.HOSP ---
Patient Problems: Active and Suspected Problems Vertigo, peripheral (Acute) Chest pain, unspecified (Acute) Subjective: The patient is a 78 year old F with past medical history of coronary artery disease status post CABG, hypertension, hyperlipidemia, diabetes, carpal tunnel syndrome of the right arm and mild dementia. Admitted via the ED 518 with complaint of severe dizziness and vertigo which is started on morning of admission. She never had such dizziness in her life and denied any history of upper respiratory infection, tinnitus or ear pain. CT of the head was negative for any acute changes. MRI of the brain done to rule out a stroke was also negative. EKG showed left axis recent with left bundle branch block. She has been managed for vertigo due to BPPV. She has remained stable. Patient seen and examined this morning. She states vertigo still the same basilic much more comfortable than she did yesterday. She does complain of right arm pain which is not acute and has been going on for several months. She denies any fever or chills, any cough or chest pain, shortness of breath, any abdominal pain, any diarrhea vomiting. Review of systems otherwise negative. Vitals/I&O's: Vital Signs Temp Pulse Resp BP Pulse Ox 98.1 F 60 18 118/39 L 95 03/18/18 09:27 03/18/18 09:30 03/18/18 09:27 03/18/18 09:27 03/18/18 09:27 Oxygen Flow Rate (L/min) 2 Oxygen Delivery Method Room Air Weight: 195 lb 12.328 oz Body Mass Index (BMI) 33.5 Intake and Output for Last 24 Hours 03/16/18 03/17/18 03/18/18 23:59 23:59 23:59 Intake Total 1034 / 1034 189 / 189 Balance 1034 / 1034 189 / 189 General: Alert, Oriented x3, Cooperative, No apparent distress HEENT: Atraumatic, PERRLA, EOMI, Normocephalic Oral: Moist Mucosa Neck: Supple, No JVD, Negative Carotid Bruits Lungs: Clear to auscultation, Normal air movement, No rhonchi, No wheeze, No rales Cardiovascular: Regular rate, Regular Rhythm, Normal S1, Normal S2, No murmurs Abdomen: Bowel Sounds Present, Soft, Non Tender Extremities: No clubbing, No cyanosis, No edema, Capillary Refill Less than 3 Seconds Skin: No rashes, No breakdown Musculoskeletal: No Tenderness to Palpation of Joints or Extremities Lymphatic: No Cervical, Supraclavicular, or Inguinal Adenopathy Neurological: Cranial nerves II-XII grossly intact, Neuro grossly intact, - - no nystagmus. Still gets dizzy with moving her head, though she looks much better than yesterday. Has reduced power 4/5 in RUE due to pain. Psych/Mental Status: Normal Affect, Appropriate, Alert and oriented to time, place, person, mood and affect Laboratory Results 03/17/18 13:04: POC Glucose 159 H 03/17/18 16:21: POC Glucose 126 H 03/17/18 17:23: Troponin I < 0.015 03/17/18 21:34: POC Glucose 152 H 03/18/18 05:50: WBC 6.2, RBC 3.68 L, Hgb 11.1 L, Hct 35.1 L, MCV 95.4, MCH 30.2, MCHC 31.6 L, RDW 13.9, RDW Differential 46.3 H, Plt Count 241, MPV 11.0, Immature Gran % (Auto) 0.200, Neut % (Auto) 49.3, Lymph % (Auto) 38.9, [place] % (Auto) 6.0, Eos % (Auto) 5.0, Baso % (Auto) 0.6, Absolute Neuts (auto) 3.1, Absolute Lymphs (auto) 2.41, Total Counted Not Reportable 03/18/18 05:50: Sodium 138, Potassium 4.5, Chloride 106, Carbon Dioxide 25.0, Anion Gap 7, BUN 20 H, Creatinine 1.28 H, Estim Creat Clear Calc 31.78, Est GFR (MDRD) Af Amer 52 L, Est GFR (MDRD) Non-Af 43 L, BUN/Creatinine Ratio 15.6, Glucose 144 H, Calcium 8.4 L 03/18/18 06:52: POC Glucose 146 H Current Medications Aspirin (Ecotrin) 81 mg PO DAILY@0800 [facility] Last Admin: 03/18/18 08:22 Dose: 81 mg Atorvastatin Calcium (Lipitor) 40 mg PO DAILY [facility] Last Admin: 03/18/18 09:30 Dose: 40 mg Dextrose (D50w Syringe) 0 gm IV X1 PRN; Protocol PRN Reason: Hypoglycemia Ergocalciferol (Vitamin D) 50,000 unit PO Q7D [facility] Ferrous Sulfate (Ferrous Sulfate) 325 mg PO DAILYCM [facility] Last Admin: 03/18/18 08:22 Dose: 325 mg Gabapentin (Neurontin) 300 mg PO QHS [facility] Last Admin: 03/17/18 21:40 Dose: 300 mg Glucagon () 1 mg IM .X1 PRN PRN Reason: Hypoglycemia Heparin Sodium (Porcine) (Heparin Na) 5,000 unit SC Q8 [facility] Last Admin: 03/18/18 05:34 Dose: 5,000 units Insulin Glargine (Lantus ([facility])) 30 units SC DAILY [facility] Last Admin: 03/18/18 09:30 Dose: 30 units Insulin Human Lispro (Humalog Kwikpen ([facility])) 0 unit SQ ACHS [facility] PRN Reason: Protocol Last Admin: 03/18/18 07:15 Dose: Not Given Levothyroxine Sodium (Synthroid) 112 mcg PO DAILY@0600 [facility] Last Admin: 03/18/18 05:34 Dose: 112 mcg Losartan Potassium (Cozaar) 50 mg PO DAILY [facility] Last Admin: 03/18/18 09:30 Dose: 50 mg Magnesium Hydroxide (Milk Of Magnesia) 30 ml PO DAILY PRN PRN PRN Reason: Constipation Meclizine HCl (Antivert) 25 mg PO BID PRN PRN PRN Reason: Vertigo Last Admin: 03/18/18 03:09 Dose: 25 mg Metoprolol Tartrate (Lopressor (Beta Carloz)) 50 mg PO BID [facility] Last Admin: 03/18/18 09:30 Dose: 50 mg Ondansetron HCl (Zofran) 4 mg IV Q6H PRN PRN PRN Reason: NAUSEA/VOMITING Oxycodone HCl (Oxyir) 5 mg PO Q4H PRN PRN PRN Reason: PAIN Last Admin: 03/18/18 03:07 Dose: 5 mg Promethazine HCl (Phenergan) 12.5 mg IV Q6H PRN PRN PRN Reason: NAUSEA/VOMITING Last Admin: 03/17/18 13:18 Dose: 12.5 mg Sodium Chloride () 5 - 30 ml IV UD PRN PRN Reason: SALINE FLUSH Medical Necessity - Tobacco Use Smoking Status: Never smoker Assessment/Plan All Active Problems Vertigo, peripheral (Acute) Chest pain, unspecified (Acute) 78-year-old female with a history of coronary artery disease status post CABG, hypertension, diabetes presented with acute onset of vertigo 1. Vertigo due to BPPV still complains of dizziness with movement of her head CT head and MRI brain were negative for stroke EKG showed only left axis deviation and LBBB unable to do Mitzi Hallpike manoeuvre and Jessica manouver today, as patient couldnt sit up due to pain in right arm. on zofran for nausea and meclizine CXR was suggestive of heart failure, but BNP was ~ 149. Though she is obese, and so BNP findings is equivocal, she doesnt look clinically fluid overloaded. fall precautions will continue monitoring 2. Atypical chest pain ACS ruled out with negative troponins and EKG will monitor 3. Right carpal tunnel tunnel syndrome s/p surgery had surgery for carpal tunnel syndrome in November still complains of right arm pain which has been going on for months X-ray of the right shoulder showed narrowed glenohumeral articulation with normal acromioclavicular joint and normal acromion and normal humerus. Soft tissues were also unremarkable. tyelenol for pain PT/OT consult. will benefit from therapy 4. Diabetes mellitus: accuchecks ACHS. on lantus sc 30IU daily and ISS 5, Hypertension: controlled. Statin and metoprolol. Will continue. WIll continue home meds 6. Hypothyroidism: On levothyroxine replacement. 7. DVT prophylaxis: heparin Disposition: Patient to be discharged to [facility] pending PT evaluation. States since her she has been alone at home and says been living with relatives. Is currently in the waiting line for [facility]. craps manager to follow-up on that. Code Visit Inpatient E&M: 67751 Subs Hosp L2
--- NOTE | 2018-03-18 11:24 | PN_ITS ---
Patient Problems: Active and Suspected Problems Vertigo, peripheral (Acute) Chest pain, unspecified (Acute) Subjective: The patient is a 78 year old F with past medical history of coronary artery disease status post CABG, hypertension, hyperlipidemia, diabetes, carpal tunnel syndrome of the right arm and mild dementia. Admitted via the ED 518 with complaint of severe dizziness and vertigo which is started on morning of admission. She never had such dizziness in her life and denied any history of upper respiratory infection, tinnitus or ear pain. CT of the head was negative for any acute changes. MRI of the brain done to rule out a stroke was also negative. EKG showed left axis recent with left bundle branch block. She has been managed for vertigo due to BPPV. She has remained stable. Patient seen and examined this morning. She states vertigo still the same basilic much more comfortable than she did yesterday. She does complain of right arm pain which is not acute and has been going on for several months. She denies any fever or chills, any cough or chest pain, shortness of breath, any abdominal pain, any diarrhea vomiting. Review of systems otherwise negative. Vitals/I&O's: Vital Signs Temp Pulse Resp BP Pulse Ox 98.1 F 60 18 118/39 L 95 03/18/18 09:27 03/18/18 09:30 03/18/18 09:27 03/18/18 09:27 03/18/18 09:27 Oxygen Flow Rate (L/min) 2 Oxygen Delivery Method Room Air Weight: 195 lb 12.328 oz Body Mass Index (BMI) 33.5 Intake and Output for Last 24 Hours 03/16/18 03/17/18 03/18/18 23:59 23:59 23:59 Intake Total 1034 / 1034 189 / 189 Balance 1034 / 1034 189 / 189 General: Alert, Oriented x3, Cooperative, No apparent distress HEENT: Atraumatic, PERRLA, EOMI, Normocephalic Oral: Moist Mucosa Neck: Supple, No JVD, Negative Carotid Bruits Lungs: Clear to auscultation, Normal air movement, No rhonchi, No wheeze, No rales Cardiovascular: Regular rate, Regular Rhythm, Normal S1, Normal S2, No murmurs Abdomen: Bowel Sounds Present, Soft, Non Tender Extremities: No clubbing, No cyanosis, No edema, Capillary Refill Less than 3 Seconds Skin: No rashes, No breakdown Musculoskeletal: No Tenderness to Palpation of Joints or Extremities Lymphatic: No Cervical, Supraclavicular, or Inguinal Adenopathy Neurological: Cranial nerves II-XII grossly intact, Neuro grossly intact, - - no nystagmus. Still gets dizzy with moving her head, though she looks much better than yesterday. Has reduced power 4/5 in RUE due to pain. Psych/Mental Status: Normal Affect, Appropriate, Alert and oriented to time, place, person, mood and affect Laboratory Results 03/17/18 13:04: POC Glucose 159 H 03/17/18 16:21: POC Glucose 126 H 03/17/18 17:23: Troponin I < 0.015 03/17/18 21:34: POC Glucose 152 H 03/18/18 05:50: WBC 6.2, RBC 3.68 L, Hgb 11.1 L, Hct 35.1 L, MCV 95.4, MCH 30.2 , MCHC 31.6 L, RDW 13.9, RDW Differential 46.3 H, Plt Count 241, MPV 11.0, Immature Gran % (Auto) 0.200, Neut % (Auto) 49.3, Lymph % (Auto) 38.9, [place] % ( Auto) 6.0, Eos % (Auto) 5.0, Baso % (Auto) 0.6, Absolute Neuts (auto) 3.1, Absolute Lymphs (auto) 2.41, Total Counted Not Reportable 03/18/18 05:50: Sodium 138, Potassium 4.5, Chloride 106, Carbon Dioxide 25.0, Anion Gap 7, BUN 20 H, Creatinine 1.28 H, Estim Creat Clear Calc 31.78, Est GFR (MDRD) Af Amer 52 L, Est GFR (MDRD) Non-Af 43 L, BUN/Creatinine Ratio 15.6, Glucose 144 H, Calcium 8.4 L 03/18/18 06:52: POC Glucose 146 H Current Medications Aspirin (Ecotrin) 81 mg PO DAILY@0800 [facility] Last Admin: 03/18/18 08:22 Dose: 81 mg Atorvastatin Calcium (Lipitor) 40 mg PO DAILY [facility] Last Admin: 03/18/18 09:30 Dose: 40 mg Dextrose (D50w Syringe) 0 gm IV X1 PRN; Protocol PRN Reason: Hypoglycemia Ergocalciferol (Vitamin D) 50,000 unit PO Q7D [facility] Ferrous Sulfate (Ferrous Sulfate) 325 mg PO DAILYCM [facility] Last Admin: 03/18/18 08:22 Dose: 325 mg Gabapentin (Neurontin) 300 mg PO QHS [facility] Last Admin: 03/17/18 21:40 Dose: 300 mg Glucagon () 1 mg IM .X1 PRN PRN Reason: Hypoglycemia Heparin Sodium (Porcine) (Heparin Na) 5,000 unit SC Q8 [facility] Last Admin: 03/18/18 05:34 Dose: 5,000 units Insulin Glargine (Lantus ([facility])) 30 units SC DAILY [facility] Last Admin: 03/18/18 09:30 Dose: 30 units Insulin Human Lispro (Humalog Kwikpen ([facility])) 0 unit SQ ACHS [facility] PRN Reason: Protocol Last Admin: 03/18/18 07:15 Dose: Not Given Levothyroxine Sodium (Synthroid) 112 mcg PO DAILY@0600 [facility] Last Admin: 03/18/18 05:34 Dose: 112 mcg Losartan Potassium (Cozaar) 50 mg PO DAILY [facility] Last Admin: 03/18/18 09:30 Dose: 50 mg Magnesium Hydroxide (Milk Of Magnesia) 30 ml PO DAILY PRN PRN PRN Reason: Constipation Meclizine HCl (Antivert) 25 mg PO BID PRN PRN PRN Reason: Vertigo Last Admin: 03/18/18 03:09 Dose: 25 mg Metoprolol Tartrate (Lopressor (Beta Carloz)) 50 mg PO BID [facility] Last Admin: 03/18/18 09:30 Dose: 50 mg Ondansetron HCl (Zofran) 4 mg IV Q6H PRN PRN PRN Reason: NAUSEA/VOMITING Oxycodone HCl (Oxyir) 5 mg PO Q4H PRN PRN PRN Reason: PAIN Last Admin: 03/18/18 03:07 Dose: 5 mg Promethazine HCl (Phenergan) 12.5 mg IV Q6H PRN PRN PRN Reason: NAUSEA/VOMITING Last Admin: 03/17/18 13:18 Dose: 12.5 mg Sodium Chloride () 5 - 30 ml IV UD PRN PRN Reason: SALINE FLUSH Medical Necessity - Tobacco Use Smoking Status: Never smoker Assessment/Plan All Active Problems Vertigo, peripheral (Acute) Chest pain, unspecified (Acute) 78-year-old female with a history of coronary artery disease status post CABG, hypertension, diabetes presented with acute onset of vertigo 1. Vertigo due to BPPV * still complains of dizziness with movement of her head * CT head and MRI brain were negative for stroke * EKG showed only left axis deviation and LBBB * unable to do Mitzi Hallpike manoeuvre and Jessica manouver today, as patient couldnt sit up due to pain in right arm. * on zofran for nausea and meclizine * CXR was suggestive of heart failure, but BNP was ~ 149. Though she is obese, and so BNP findings is equivocal, she doesnt look clinically fluid overloaded. * fall precautions * will continue monitoring * * 2. Atypical chest pain * ACS ruled out with negative troponins and EKG * will monitor * 3. Right carpal tunnel tunnel syndrome s/p surgery * had surgery for carpal tunnel syndrome in November * still complains of right arm pain which has been going on for months * X-ray of the right shoulder showed narrowed glenohumeral articulation with normal acromioclavicular joint and normal acromion and normal humerus. Soft tissues were also unremarkable. * tyelenol for pain * PT/OT consult. will benefit from therapy * 4. Diabetes mellitus: accuchecks ACHS. on lantus sc 30IU daily and ISS 5, Hypertension: controlled. Statin and metoprolol. Will continue. WIll continue home meds 6. Hypothyroidism: On levothyroxine replacement. 7. DVT prophylaxis: heparin Disposition: Patient to be discharged to [facility] pending PT evaluation. States since her she has been alone at home and says been living with relatives. Is currently in the waiting line for [facility]. supply chain design manager to follow-up on that. Code Visit Inpatient E&M: [id number] Subs Hosp L2
--- NOTE | 2018-03-18 12:18 | CASEMGMT ---
Addendum entered by Kaylee Castaneda 03/18/18 15:22: SW spoke w/daughter again, she states that they have decided to take pt home and that pt's son who is a PT and knows how to treat vertigo wants to treat her at home. Daughter states that the family will be available to assist pt. SW let physician know that the plan is now for pt to return home at discharge. JACKSON Driver, IT SYSTEMS ENGINEER Original Note: See assessment. SW spoke w/pt in room in regard to plan. Pt's in January, and she then went to live w/her son and daughter in law. She states they were not home much however. She was going to [employer] during the day but it still was not enough care. Pt then went to live with a neighbor and that did not work out. Pt has been staying in the basement of her sister in law and brother in laws. This had been working well but now with the dizziness the stairs are problematic. Pt state is on the wait list at [facility], she would like to go there from here if possible. SW explained will follow up on this. Pt's daughter then came in, SW let her know SW spoke w/pt and SW will call [facility] about placement. NARCISA spoke w/Berlin at [facility], faxed the information, and [place] called back. She states that pt is still on the wait list and to have family follow up on the 1st of each month. SW spoke w/PT, and PT is recommending SNF. SW will follow up w/pt and daughter shortly. JACKSON Driver, IT SYSTEMS ENGINEER
[2018-03-18] MEDS: Insulin Lispro 100 UNIT/ML INSULN.PEN SQ ×3 (12:42→21:39)
[2018-03-18 17:01] LABS: Bedside Glucose 172 mg/dL (70-110)
[2018-03-18] MEDS: Gabapentin 300 MG Capsule PO (21:38)
[2018-03-18 23:31] LABS: Bedside Glucose 171 mg/dL (70-110)
[2018-03-19 03:15] VITALS: BP 138/46; PULSE 51; RESP 18; TEMP 36.8; O2SAT 97
[2018-03-19] MEDS: Levothyroxine 112 MCG Tablet PO (05:26)
[2018-03-19] MEDS: Heparin Injection (Vial) 5,000 UNIT/ML VIAL 5000 UNIT SC (05:26)
[2018-03-19 06:55] VITALS: PULSE 54
[2018-03-19 07:13] LABS: Absolute Neutrophil Count 3.4 X10^3/uL (2.0-7.7); Basophil# 0.05 X10^3/uL; Basophil% 0.7 % (0-1); Eosinophil# 0.32 X10^3/uL; Eosinophils% 4.4 % (0-5); Hematocrit 34.3 % (37-47); Hemoglobin 10.7 g/dl (12.0-15.0); Lymphocyte % 41.3 % (19-41); Mean Corp Hgb Conc 31.2 g/gl (32-36); Mean Corpuscular Hgb 29.1 pg (27.0-32.0); Mean Corpuscular Volume 93.2 fL (81-99); Monocyte% 6.9 % (0-10); Neutrophil % 46.7 % (47-70); Platelet Count 234 K/mm3 (150-450); RBC Distribution Width SD 47.4 fl (35.1-43.9); Red Blood Count 3.68 M/mm3 (4.2-5.4); White Blood Count 7.3 K/mm3 (4.4-11.0)
[2018-03-19 07:15] LABS: Bedside Glucose 199 mg/dL (70-110)
[2018-03-19 07:16] LABS: POSITIVE COUNT NO; POSITIVE DIFFERENTIAL NO; POSITIVE MORPHOLOGY NO
[2018-03-19 07:31] LABS: Anion Gap 9 (5-15); BUN 25 mg/dL (7-18); BUN/Creat Ratio 17.1 RATIO (10-20); Calcium,Total 8.3 mg/dL (8.5-10.1); Chloride 104 mmol/L (98-107); Creatinine, Serum 1.46 mg/dL (0.55-1.02); EST Glomerular Filtration Rate 37 mL/min (>60); Est Glom Filt Rate - Afr Amer 45 mL/min (>60); Estimated Creatinine Clearance 27.87 ml/min; Glucose 107 mg/dL (74-106); Potassium 4.2 mmol/L (3.5-5.1); Sodium Level 138 mmol/L (136-145)
[2018-03-19 07:35] LABS: Bedside Glucose 115 mg/dL (70-110)
[2018-03-19] MEDS: oxyCODONE 5 MG Tablet PO (09:14)
[2018-03-19] MEDS: Losartan Potassium 50 MG Tablet PO (09:14)
[2018-03-19] MEDS: Atorvastatin Calcium 40 MG Tablet PO (09:14)
[2018-03-19] MEDS: Ferrous Sulfate 325 MG Tablet PO (09:14)
[2018-03-19] MEDS: Aspirin E.C. 81 MG Tablet PO (09:14)
[2018-03-19 09:15] VITALS: BP 143/62; PULSE 56; RESP 18; TEMP 37; O2SAT 96
--- NOTE | 2018-03-19 09:27 | CT_ITS ---
STUDY: CT CERVICAL SPINE WITHOUT CONTRAST REASON FOR EXAM: Female, 78 years old. Neck pain and right upper arm pain RADIATION DOSAGE (If Supplied By Facility): CTDIvol = ( 26.56 ) mGy, DLP = ( 499.02 ) mGycm TECHNIQUE: High resolution transaxial imaging was performed without contrast material. Sagittal and coronal images were reconstructed. Individualized dose optimization techniques were used for this CT. COMPARISON: None FINDINGS: Normal craniovertebral junction. Degenerative changes are present involving the atlantoaxial axial articulation. Normal odontoid process. Normal cervical lordosis. Normal vertebral bodies and posterior osseous elements. Diffuse degenerative disease is present. Severe central canal stenosis at C4-5. Severe bilateral foraminal stenoses at C4-5 and C5-6. No acute fractures or dislocations are seen. Carotid calcifications. Enlarged and heterogeneous thyroid gland may be related to goiter. 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 Severe bilateral foraminal stenoses at C4-5 and C5-6. No fractures or osteolytic lesions are seen. Electronically Signed: Alfonso Pozo MD at 10:47 EDT Tel , Service support ,
[2018-03-19 11:00] VITALS: PULSE 61
[2018-03-19 11:04] VITALS: O2SAT 95
--- NOTE | 2018-03-19 11:13 | CM.UR ---
Transfer note: This patient has traditional MCR and can be transferred to any medicare certified facility. Negra Barriga RN, CCM.
[2018-03-19 11:25] LABS: Bedside Glucose 170 mg/dL (70-110)
--- NOTE | 2018-03-19 13:44 | NURSING ---
called report to RN at [facility].
--- NOTE | 2018-03-19 13:55 | PCM.DC.SUM ---
<Shavon Bradley - Last Filed: 03/19/18 14:05> Discharge Date and Diagnosis Date of Admission: 03/17/18 Date of Discharge: 03/19/18 - Primary Discharge Diagnosis Active and Suspected Problems 1. Vertigo due to BPPV 2. Atypical chest pain, noncardiac 3. 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 Electronically Signed: Jens Thurman MD at 10:22 EDT Tel [phone], Service support , Chest X-Ray 03/17/18 09:01 IMPRESSION: Findings in keeping with vascular congestion and mild degree of CHF. Electronically Signed: Jens Thurman MD at 10:19 EDT Tel [phone], Service support , Brain MRI 03/17/18 12:20 IMPRESSION: Minor atrophy and periventricular white matter ischemic changes without evidence for acute infarct. Electronically Signed: Kp Adame MD at 16:28 EDT , Service support , Elbow X-Ray 03/17/18 15:34 IMPRESSION: Normal x-ray examination of the elbow. Electronically Signed: Kp Adame MD at 19:41 EDT , Service support , Shoulder X-Ray 03/17/18 15:43 IMPRESSION: Degenerative changes. No evidence for acute fracture Electronically Signed: Kp Adame MD at 19:40 EDT , Service support , Wrist X-Ray 03/17/18 15:49 IMPRESSION: Mild arthritic changes. No evidence for acute fracture Electronically Signed: Kp Adame MD at 19:40 EDT , Service support , Cervical Spine CT 03/19/18 09:27 IMPRESSION: Severe central canal stenosis at C4-5. Severe bilateral foraminal stenoses at C4-5 and C5-6. No fractures or osteolytic lesions are seen. Electronically Signed: Alfonso Pozo MD at 10:47 EDT Tel , Service support , Operations: None Procedures: None Summary of Care Provided: The patient is a 78 year old F admitted 03/17/2018 due to vertigo. She has a past medical history of CAD status post CABG, hypertension, hyperlipidemia, type 2 diabetes mellitus, hypothyroidism, iron deficiency anemia and recent right carpal tunnel syndrome status post surgery. Patient treated for vertigo due to BPPV with meclizine. CT of head and MRA of brain negative for stroke. Dizziness increased with movement of head. Patient initially presented with chest pain which resolved. Troponin negative. EKG without evidence of ischemia. Patient complained of debility due to right arm pain, neck pain and headache for months. She recently had right carpal tunnel surgery without any improvement of symptoms. X-ray of the right shoulder showed narrowed glenohumeral articulation with normal acromioclavicular joint and normal acromion and normal humerus. Soft tissues unremarkable. Physical therapy recommended further skilled therapy. Patient was agreeable however CT of cervical spine showed severe central canal stenosis at C4-C5 and severe bilateral foraminal stenosis at C4-C5 and C5-C6 which may be contributing to her symptoms. [facility] contacted who is willing to accept patient for neurosurgery evaluation. Patient and family agreeable to this. Patient is stable of time of transfer to [facility]. General: Alert, Oriented x3, Cooperative HEENT: Atraumatic, PERRLA, EOMI, Normocephalic Oral: Moist Mucosa Neck: Supple, No JVD, Negative Carotid Bruits Lungs: Clear to auscultation, Normal air movement Cardiovascular: Regular rate, Regular Rhythm, Normal S1, Normal S2, No murmurs Abdomen: Bowel Sounds Present, Soft, Non Tender Extremities: No clubbing, No cyanosis, No edema, Capillary Refill Less than 3 Seconds Skin: No rashes, No breakdown Musculoskeletal: No Tenderness to Palpation of Joints or Extremities Lymphatic: No Cervical, Supraclavicular, or Inguinal Adenopathy Neurological: Cranial nerves II-XII grossly intact, Neuro grossly intact. Slightly weaker right upper extremity due to pain. Psych/Mental Status: Normal Affect, Appropriate Patient seen and examined prior to transfer. Physical assessment as noted above. Patient is stable at time of transfer to [facility] for further neurosurgery evaluation regarding severe central canal stenosis and severe foraminal stenosis. This patient was seen by HIMANSHU Marquez under the supervision of Dr. Cruz. Home Medications: Medications to take at Discharge Aspirin E.C. [Ecotrin] 81 mg PO DAILY 03/17/18 Atorvastatin Calcium 40 mg PO DAILY 03/17/18 Ergocalciferol [Vitamin D] 50,000 unit PO Q7D 03/17/18 Ferrous Sulfate [Iron] 325 mg PO DAILY 03/17/18 Gabapentin [Neurontin] 300 mg PO QHS 03/17/18 Insulin Detemir [Levemir FlexPen] 30 units SQ DAILY 03/17/18 Levothyroxine Sodium [Synthroid] 112 mcg PO DAILY 03/17/18 Losartan Potassium [Cozaar] 50 mg PO DAILY 03/17/18 Metoprolol Tartrate [Lopressor (Beta Carloz)] 50 mg PO BID 03/17/18 Oxycodone [Oxyir] 5 mg PO Q4H PRN PRN 03/17/18 Primary Care Physician: Angus Chapa NP-C [Primary Care Provider] - Disposition: Acute care Hospital Minutes spent on discharge:: 35 Patient Condition:: Stable Medical Necessity - Tobacco Use Smoking Status: Never smoker Meaningful Use Info Meaningful Use Diagnoses (Choose all that apply): None applicable <Claudia Cruz - Last Filed: 03/19/18 14:57> Discharge Date and Diagnosis - Secondary Discharge Diagnosis Chronic Problems HTN (hypertension) (Chronic) CAD (coronary artery disease) (Chronic) Hx of CABG (Chronic) Carpal tunnel syndrome on right (Chronic) Hospital Course and Treatment Imaging Results: 03/19/18 09:27 CT Cervical [Spine Cervical without Contras] [CT] Urgent Summary of Care Provided: Patient seen by Shavon DOWNS under my supervision. Agree with above note. The patient is a 78 year old F with a history of CAD status post CABG, hypertension, hyperlipidemia, type 2 diabetes, hypothyroidism and iron deficiency anemia as well as less recent right carpal tunnel syndrome status post surgery. She was admitted on 03/17/[address] of the head was negative and MRI of the brain was also negative for stroke. Dizziness increased with movement of the head and so a diagnosis of BPPV was made. Patient became stable controlled even though she was unable to tolerate the [place]-Hallpike maneuver and the Jessica maneuver. Patient kept complaining of right arm pain which radiated to her fingers with increased numbness of her fingers and said he had become much more severe event there was a chronic pain. CT of the cervical spine obtained shows severe central canal stenosis at C4-C5 and severe bilateral foraminal stenosis at C4-C5 and C5-C6. Patient's son wanted her to be discharged home as he was a physical therapist and so said he could take care of his mother at home, and set up neurosurgery appointments for her. I explained to family the severity of her cervical spine stenosis and benefit of urgent neurosurgery review. Decision was made to transfer patient to tertiary hospital for urgent neurosurgery evaluation.. [facility] accepted patient was transferred. Patient seen and examined. She complained of weakness in her RUE O/E: alert, oriented x 3 HEENT: atraumatic, PERRLA, EOMI, normochepalic Lungs: clear to auscultation CVS: normal S1 and S2, no murmurs Abdomen: soft, nontender, no organomegaly Extremities: no clubbing or cynaosis Neuro: has increased tingling and loss of sensation in right finger tips of all fingers. Limited range of motion of right arm, with patient only able to abduct and elevate arm with difficulty Assessment and Plan 1. BPPV: vertigo improved significantly. Counseled to follow up with ENT surgeon on discharge. 2. Severe cervical spine stenosis: CT reading as above. Patient transferred to [facility] as per Shavon Kirk COPRA SAMPLER-C's note. [] This note was generated with [employer] software. It may contain incorrect words, spelling, and punctuation that were not noted in checking the note before signing. Code Visit Inpatient E&M: 03467 Disch Hosp
--- NOTE | 2018-03-19 14:05 | DS.PCM_ITS ---
<Shavon Bradley - Last Filed: 03/19/18 14:05> Discharge Date and Diagnosis Date of Admission: 03/17/18 Date of Discharge: 03/19/18 - Primary Discharge Diagnosis Active and Suspected Problems 1. Vertigo due to BPPV 2. Atypical chest pain, noncardiac 3. 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 Electronically Signed: Jens Thurman MD at 10:22 EDT Tel [phone], Service support , Chest X-Ray 03/17/18 09:01 IMPRESSION: Findings in keeping with vascular congestion and mild degree of CHF. Electronically Signed: Jens Thurman MD at 10:19 EDT Tel [phone], Service support , Brain MRI 03/17/18 12:20 IMPRESSION: Minor atrophy and periventricular white matter ischemic changes without evidence for acute infarct. Electronically Signed: Kp Adame MD at 16:28 EDT , Service support , Elbow X-Ray 03/17/18 15:34 IMPRESSION: Normal x-ray examination of the elbow. Electronically Signed: Kp Adame MD at 19:41 EDT , Service support , Shoulder X-Ray 03/17/18 15:43 IMPRESSION: Degenerative changes. No evidence for acute fracture Electronically Signed: Kp Adame MD at 19:40 EDT , Service support , Wrist X-Ray 03/17/18 15:49 IMPRESSION: Mild arthritic changes. No evidence for acute fracture Electronically Signed: Kp Adame MD at 19:40 EDT , Service support , Cervical Spine CT 03/19/18 09:27 IMPRESSION: Severe central canal stenosis at C4-5. Severe bilateral foraminal stenoses at C4-5 and C5-6. No fractures or osteolytic lesions are seen. Electronically Signed: Alfonso Pozo MD at 10:47 EDT Tel , Service support , Operations: None Procedures: None Summary of Care Provided: The patient is a 78 year old F admitted 03/17/2018 due to vertigo. She has a past medical history of CAD status post CABG, hypertension, hyperlipidemia, type 2 diabetes mellitus, hypothyroidism, iron deficiency anemia and recent right carpal tunnel syndrome status post surgery. Patient treated for vertigo due to BPPV with meclizine. CT of head and MRA of brain negative for stroke. Dizziness increased with movement of head. Patient initially presented with chest pain which resolved. Troponin negative. EKG without evidence of ischemia. Patient complained of debility due to right arm pain, neck pain and headache for months. She recently had right carpal tunnel surgery without any improvement of symptoms. X-ray of the right shoulder showed narrowed glenohumeral articulation with normal acromioclavicular joint and normal acromion and normal humerus. Soft tissues unremarkable. Physical therapy recommended further skilled therapy. Patient was agreeable however CT of cervical spine showed severe central canal stenosis at C4-C5 and severe bilateral foraminal stenosis at C4-C5 and C5-C6 which may be contributing to her symptoms. [facility] contacted who is willing to accept patient for neurosurgery evaluation. Patient and family agreeable to this. Patient is stable of time of transfer to [facility]. General: Alert, Oriented x3, Cooperative HEENT: Atraumatic, PERRLA, EOMI, Normocephalic Oral: Moist Mucosa Neck: Supple, No JVD, Negative Carotid Bruits Lungs: Clear to auscultation, Normal air movement Cardiovascular: Regular rate, Regular Rhythm, Normal S1, Normal S2, No murmurs Abdomen: Bowel Sounds Present, Soft, Non Tender Extremities: No clubbing, No cyanosis, No edema, Capillary Refill Less than 3 Seconds Skin: No rashes, No breakdown Musculoskeletal: No Tenderness to Palpation of Joints or Extremities Lymphatic: No Cervical, Supraclavicular, or Inguinal Adenopathy Neurological: Cranial nerves II-XII grossly intact, Neuro grossly intact. Slightly weaker right upper extremity due to pain. Psych/Mental Status: Normal Affect, Appropriate Patient seen and examined prior to transfer. Physical assessment as noted above. Patient is stable at time of transfer to [facility] for further neurosurgery evaluation regarding severe central canal stenosis and severe foraminal stenosis. This patient was seen by HIMANSHU Marquez under the supervision of Dr. Cruz. Home Medications: Medications to take at Discharge Aspirin E.C. [Ecotrin] 81 mg PO DAILY 03/17/18 Atorvastatin Calcium 40 mg PO DAILY 03/17/18 Ergocalciferol [Vitamin D] 50,000 unit PO Q7D 03/17/18 Ferrous Sulfate [Iron] 325 mg PO DAILY 03/17/18 Gabapentin [Neurontin] 300 mg PO QHS 03/17/18 Insulin Detemir [Levemir FlexPen] 30 units SQ DAILY 03/17/18 Levothyroxine Sodium [Synthroid] 112 mcg PO DAILY 03/17/18 Losartan Potassium [Cozaar] 50 mg PO DAILY 03/17/18 Metoprolol Tartrate [Lopressor (Beta Carloz)] 50 mg PO BID 03/17/18 Oxycodone [Oxyir] 5 mg PO Q4H PRN PRN 03/17/18 Primary Care Physician: Angus Chapa NP-C [Primary Care Provider] - Disposition: Acute care Hospital Minutes spent on discharge:: 35 Patient Condition:: Stable Medical Necessity - Tobacco Use Smoking Status: Never smoker Meaningful Use Info Meaningful Use Diagnoses (Choose all that apply): None applicable <Claudia Cruz - Last Filed: 03/19/18 14:57> Discharge Date and Diagnosis - Secondary Discharge Diagnosis Chronic Problems HTN (hypertension) (Chronic) CAD (coronary artery disease) (Chronic) Hx of CABG (Chronic) Carpal tunnel syndrome on right (Chronic) Hospital Course and Treatment Imaging Results: 03/19/18 09:27 CT Cervical [Spine Cervical without Contras] [CT] Urgent Summary of Care Provided: Patient seen by Shavon DOWNS under my supervision. Agree with above note. The patient is a 78 year old F with a history of CAD status post CABG, hypertension, hyperlipidemia, type 2 diabetes, hypothyroidism and iron deficiency anemia as well as less recent right carpal tunnel syndrome status post surgery. She was admitted on 03/17/[address] of the head was negative and MRI of the brain was also negative for stroke. Dizziness increased with movement of the head and so a diagnosis of BPPV was made. Patient became stable controlled even though she was unable to tolerate the [place]- Hallpike maneuver and the Jessica maneuver. Patient kept complaining of right arm pain which radiated to her fingers with increased numbness of her fingers and said he had become much more severe event there was a chronic pain. CT of the cervical spine obtained shows severe central canal stenosis at C4-C5 and severe bilateral foraminal stenosis at C4-C5 and C5-C6. Patient's son wanted her to be discharged home as he was a physical therapist and so said he could take care of his mother at home, and set up neurosurgery appointments for her. I explained to family the severity of her cervical spine stenosis and benefit of urgent neurosurgery review. Decision was made to transfer patient to tertiary hospital for urgent neurosurgery evaluation.. [facility] accepted patient was transferred. Patient seen and examined. She complained of weakness in her RUE O/E: alert, oriented x 3 HEENT: atraumatic, PERRLA, EOMI, normochepalic Lungs: clear to auscultation CVS: normal S1 and S2, no murmurs Abdomen: soft, nontender, no organomegaly Extremities: no clubbing or cynaosis Neuro: has increased tingling and loss of sensation in right finger tips of all fingers. Limited range of motion of right arm, with patient only able to abduct and elevate arm with difficulty Assessment and Plan 1. BPPV: vertigo improved significantly. Counseled to follow up with ENT surgeon on discharge. 2. Severe cervical spine stenosis: CT reading as above. Patient transferred to [facility] as per Shavon Kirk GENERAL LOT ATTENDANT-C's note. [] This note was generated with [employer] software. It may contain incorrect words, spelling, and punctuation that were not noted in checking the note before signing. Code Visit Inpatient E&M: [id number] Disch Hosp
--- NOTE | 2018-03-19 14:35 | NURSING ---
called son, Pradip, to inform that [facility] accepted pt and will be transported soon.
[2018-03-19 15:00] VITALS: BP 141/49; PULSE 60; RESP 18; TEMP 37.3; O2SAT 98
== END 2018-03-19 15:19 | disposition short-term general hospital (02) | DRG 149 ==
LOC: ED 11:23 → PCU 11:57
PROVIDERS: Admitting Provider Student in an Organized Health Care Education/Training Program; Emergency Provider Emergency Medicine; Family Provider Nurse Practitioner Family; PCP Nurse Practitioner Family; Visit Provider Student in an Organized Health Care Education/Training Program
DX: H81.10 Benign paroxysmal vertigo, unspecified ear (principal); M48.02 Spinal stenosis, cervical region; E11.9 Type 2 diabetes mellitus without complications; R07.89 Other chest pain; E03.9 Hypothyroidism, unspecified; I25.10 Atherosclerotic heart disease of native coronary artery without angina pectoris; Z95.1 Presence of aortocoronary bypass graft; I10 Essential (primary) hypertension; E78.5 Hyperlipidemia, unspecified; Z79.4 Long term (current) use of insulin; D50.9 Iron deficiency anemia, unspecified
CPT/HCPCS: 36415; 70450; 70551; 71045; 72125; 73030; 73070; 73100; 80048; 81001; 82962; 83880; 84484; 85025; 93005; 97162; 97166; 97530; 99285; J7030; A4216; J2405

== ENCOUNTER 2018-04-13 12:43 | Observation (INO) | payer MEDICARE, SELFPAY ==
[2018-04-13] VITALS (9 sets, daily range): BP systolic 125–157; BP diastolic 34–74; PULSE 66–79; RESP 16–18; TEMP 36.4–36.7; O2SAT 2–100; BMI 34.0
--- NOTE | 2018-04-13 12:55 | EKG12_ITS ---
Test Reason : UPPER EXTREMITY Blood Pressure : / mmHG Vent. Rate : 071 BPM Atrial Rate : 071 BPM P-R Int : 210 ms QRS Dur : 152 ms QT Int : 474 ms P-R-T Axes : 068 -37 134 degrees QTc Int : 515 ms Sinus rhythm with 1st degree A-V block Left axis deviation Left bundle branch block Abnormal ECG Confirmed by JAIME EL, DIDI ([id number]), news copy editor DAMIAN MCCRACKEN ([id number]) on 04/18/2018 1:41:44 PM Referred By: LIAM Confirmed By:DIDI SANDOVAL MD
--- NOTE | 2018-04-13 12:55 | RAD_ITS ---
STUDY: X-RAY CHEST REASON FOR EXAM: Female, 78 years old. Right arm pain. Chest pain. Recent cervical surgery. TECHNIQUE: Single AP portable view of the chest. COMPARISON: Comparison is made with prior study dated March 17, 2018. FINDINGS: EKG electrodes are seen. The lungs are clear and expanded. There is no demonstrated pleural abnormality. Sternal cerclage wires and vascular clips are present from a prior sternotomy and coronary artery bypass graft procedure (CABG). Normal mediastinum and holli. Normal visualized pulmonary arteries. There is atherosclerotic calcification of the aortic arch with tortuosity. Status post fusion in the lower cervical spine. Normal visualized ribs, clavicles, and shoulders. There is no demonstrated abnormality of the visualized soft tissue structures of the upper abdomen. RAD/Chest 1 View (Portable) IMPRESSION: No acute abnormality is seen. Electronically Signed: Jens Thurman MD at 13:13 EDT Tel [phone], Service support ,
[2018-04-13 13:28] LABS: Absolute Lymphocyte Count 1.76 X10^3/ul (0.83-4.51); Absolute Neutrophil Count 5.5 X10^3/uL (2.0-7.7); Basophil# 0.03 X10^3/uL; Basophil% 0.4 % (0-1); Eosinophil# 0.38 X10^3/uL; Eosinophils% 4.7 % (0-5); Hematocrit 32.9 % (37-47); Hemoglobin 10.5 g/dl (12.0-15.0); Lymphocyte # 1.76 X10^3/ul (4.0); Lymphocyte % 21.9 % (19-41); Mean Corp Hgb Conc 31.9 g/gl (32-36); Mean Corpuscular Hgb 29.3 pg (27.0-32.0); Mean Corpuscular Volume 91.9 fL (81-99); Mean Platelet Vol. 9.6 fl (6.2-12.0); Monocyte# 0.35 X10^3/uL; Monocyte% 4.3 % (0-10); Neutrophil # 5.53 X10^3/uL (2.7-7.7); Neutrophil % 68.7 % (47-70); Platelet Count 250 K/mm3 (150-450); RBC Distribution Width CV 14.3 % (11.6-14.6); RBC Distribution Width SD 48.4 fl (35.1-43.9); Red Blood Count 3.58 M/mm3 (4.2-5.4); White Blood Count 8.1 K/mm3 (4.4-11.0)
[2018-04-13 13:35] LABS: POSITIVE COUNT NO; POSITIVE DIFFERENTIAL NO; POSITIVE MORPHOLOGY NO
--- NOTE | 2018-04-13 13:35 | NURSING ---
Addendum entered by April Bermudez 04/13/18 13:37: ALYSSIA MUNIZ IS [facility]- [phone]. Original Note: ALYSSIA MUNIZ IS [facility]- [phone]. LAYO HOLLY SPOKE WITH LOGAN, PT'S [id number] WITH PT'S PERMISSION, TOLD HER ED IS WAITING FOR LAB RESULTS AND XRAY RESULTS.
--- NOTE | 2018-04-13 13:36 | NURSING ---
LOGAN MUNIZ, [id number] PHONE NUMBER IS [phone].
[2018-04-13] MEDS: Morphine 4 MG/ML Syringe IV (13:43)
[2018-04-13] MEDS: Ondansetron 4 MG/2 ML Vial IV (13:43)
[2018-04-13] MEDS: Aspirin 81 MG TAB.CHEW 324 MG PO (13:43)
[2018-04-13] MEDS: 0.9% Normal Saline 1,000 ML 150 ML IV (13:43)
[2018-04-13 13:46] LABS: Anion Gap 9 (5-15); BUN 16 mg/dL (7-18); BUN/Creat Ratio 12.3 RATIO (10-20); Calcium,Total 8.8 mg/dL (8.5-10.1); Chloride 96 mmol/L (98-107); EST Glomerular Filtration Rate 42 mL/min (>60); Est Glom Filt Rate - Afr Amer 51 mL/min (>60); Estimated Creatinine Clearance 31.29 ml/min; Glucose 314 mg/dL (74-106); Sodium Level 132 mmol/L (136-145)
--- NOTE | 2018-04-13 13:46 | ED.RN ---
DDIMER 3.[address] LAB. DR DR WHEELER AWARE
[2018-04-13 13:47] LABS: D-Dimer Quantitative (DVT/PE) 3.39 FEU/ug/m (0.27-0.49)
--- NOTE | 2018-04-13 13:51 | CT_ITS ---
STUDY: CTA CHEST REASON FOR EXAM: Female, 78 years old. Chest pain. RADIATION DOSAGE (If Supplied By Facility): CTDIvol = ( 17.38 ) mGy, DLP = ( 621.18 ) mGycm TECHNIQUE: The examination was performed with the intravenous administration of 100ML ml of Isovue 300 contrast material. Post-processing of the angiographic images was performed, with multiplanar reformation and 3D reconstruction. Individualized dose optimization techniques were used for this CT. COMPARISON: Comparison is made with prior chest radiograph done earlier in the day. FINDINGS: Diffuse enlargement of the right lobe of the thyroid with the substernal extension. Small hypodense nodules in the right lobe. There are several small nonocclusive intraluminal filling defects in the proximal branches of the left upper lobe pulmonary artery as well as in the right middle lobe peripheral branches and left lower lobe peripheral branches. There is atherosclerotic calcification of the aortic arch with tortuosity. There is no demonstrated aortic dissection. Sternal cerclage wires and vascular clips are present from a prior sternotomy and coronary artery bypass graft procedure (CABG). Normal mediastinum. Normal hilar regions. Normal visualized trachea and bronchi. The lungs are well expanded. There is a 7.8 mm x 4.9 mm noncalcified nodule in the right upper lobe adjacent to the right minor fissure. Mild increased markings at the lung bases suggestive of scarring. Normal pleura. Normal chest wall structures. There are degenerative changes of thoracic spine. The patient is status post cholecystectomy. Questionable 2.2 cm x 2.5 cm solid mass arising from the upper lateral aspect of the left kidney. Small hiatal hernia. CT/CTA Chest W/WO Contrast IMPRESSION: Several small peripheral intraluminal filling defects involving pulmonary branches as described. Possible solid left renal mass. 7.8 mm x 4.9 mm noncalcified nodule in the right upper lobe adjacent to the right minor fissure. Enlarged right lobe of the thyroid. Electronically Signed: Jens Thurman MD at 14:29 EDT Tel [phone], Service support ,
--- NOTE | 2018-04-13 15:32 | ED.VISSUMM ---
- ER Visit Summary Date of Service: 04/13/18 Chief Complaint: [Right arm pain and chest pain] History of Present Illness: The patient is a 78 F [presents the emergency department complaint of right arm pain and chest discomfort. Patient states that she developed onset of pain started in her hands that radiate to her elbow and her right shoulder. Patient gives history of recent surgery on her cervical spine. Patient is a very poor informant and does not know where she had her surgery or who her surgeon was. Patient presents from halfway. Patient also complains of right sided sharp chest discomfort. She denies any shortness of breath. Patient has history of coronary artery disease, hypertension, spinal stenosis, hypothyroidism, and diabetes.] Physical Examination: [HEENT-PERRLA, EOMI. Cranial nerves II through XII grossly intact. TMs clear. Mucous membranes moist. No adenopathy. Patient has a cervical collar in place. Cardiovascular-regular rate and rhythm without murmur or ectopy Lungs-clear to auscultation, chest wall stable without crepitus or subcu emphysema Abdomen-normoactive bowel sounds, soft, nontender, no rebound or rigidity, no peritoneal signs. Extremities-intact ?4, normal range of motion, normal pulses, atraumatic]. Right arm-patient has diffuse tenderness about the right elbow, forearm, and hand. Patient has normal range of motion at the elbow and all digits. Patient has normal pulses of the right arm and normal cap refill. Test Results: [EKG obtained on arrival shows sinus rhythm with a ventricular rate of 71 bpm with first-degree AV block and left bundle branch block noted. CBC with differential showed a white count of 8.1, hemoglobin 10.5, hematocrit 33, platelets 250. Chemistries unremarkable. Glucose was elevated 314. Troponin is less than 0.015. D-dimer was elevated at 3.39 therefore CTA of the chest was obtained which showed small bilateral pulmonary emboli in the peripheral branches.] Emergency Department Course and Treatment: [Patient case was discussed with hospitalist will evaluate patient for admission. I also attempted to contact patient's surgeon of record Dr. Juan Daniel Garcia who was not available however I was able to speak with his partner who is on-call and made him aware of patient's condition and findings. stated that any anticoagulation that we wanted to use should not be a problem.] Treatment Plan: [Admit for pain control and anticoagulation. Patient states that her right arm pain actually is been ongoing for over 2 weeks and is not new. I do not feel any imaging of her cervical spine was indicated at this time.] Disposition: [Admit] Impression: [Right arm pain Bilateral pulmonary emboli] This note was generated with [employer] dictation software. It may contain incorrect words, spelling, and punctuation that were not noted in review of the chart prior to signing ED Disposition - Plan for ED Patient: Chief Complaint: Upper Extremity Injury
--- NOTE | 2018-04-13 16:29 | MRI_ITS ---
STUDY: MRI CERVICAL SPINE WITHOUT CONTRAST REASON FOR EXAM: Female, 78 years old. Postoperative pain. TECHNIQUE: Standardized fat and water weighted pulse sequences were obtained in the sagittal and axial planes. There is severe artifact at the C4, and C5 levels apparently related to orthopedic hardware. COMPARISON: CT of the cervical spine dated March 19, 2018. FINDINGS: Normal foramen magnum and brainstem-cervical cord junction. Normal craniovertebral junction. There are degenerative changes of the anterior atlantoaxial articulation. Normal odontoid process. Normal cervical lordosis. The C4 and C5 vertebral bodies are not visualized secondary to severe artifact. C2-3: Normal endplates. Normal disc height, signal and morphology. Normal central canal and intervertebral neural foramina. C3-4: There is artifact at this level which is the appearance of acquired canal stenosis. C4-5: These images are nondiagnostic. C5-6: These images are nondiagnostic. C6-7: Normal endplates. There is a mild disc bulge and osteophyte complex.. Normal central canal and intervertebral neural foramina. C7-T1: Normal endplates. Normal disc height, signal and morphology. Normal central canal and intervertebral neural foramina. The cervical cord at C4, C5 and C6 appears to have abnormal signal. There is also MR appearance of cord impingement. This appearance may be artifactual however, cervical myelomalacia is also possible. There is no demonstrated cervical cord syrinx cavity. Normal visualized soft tissue structures. MRI/Spine Cervical (Routine) IMPRESSION: 1. Significant artifact is present at C4, C5 and C6 regions related to recent surgery. 2. Apparent abnormal signal within the cervical spinal cord at C4 and C5 possibly related to cord impingement and/or myelomalacia. Artifactual signal within the cord cannot be excluded. Electronically Signed: Adia Johnson MD at 3:42 EDT , Service support ,
--- NOTE | 2018-04-13 16:52 | NURSING ---
notified dr that darien pe are admitted to [facility], dr stated that he is not going to treat for the pe because they are very small. order for tele.
[2018-04-13] MEDS: Gabapentin 300 MG Capsule PO (17:06)
--- NOTE | 2018-04-13 19:49 | PCM.HP.STD ---
Problem List (1) Cervical radicular pain Status: Acute History of Present Illness Date of Admission: 04/13/18 Chief Complaint: right UE pain 78 year old most pleasant old lady who recently underwent neck surgery - anterior decompression and fusion for severe cervical radiculopathic symptoms and spinal stenosis. Patient states that since surgery she has been experiencing increasing and severe pain in the right upper extremity from the upper arm all the way down to he thumb. Admits to numbness and paraesthesia as well. Does not have any reported fever or chills. Since surgery she has been in a SNF undergoing rehab Past Medical History Past Medical History (Chronic Problems): Chronic Problems HTN (hypertension) (Chronic) CAD (coronary artery disease) (Chronic) Hx of CABG (Chronic) Carpal tunnel syndrome on right (Chronic) Medical History: Medical History (Last Updated 04/13/18 @ 19:54 by Blas Angeles MD) HTN (hypertension) I10 Allergies orange juice Allergy (Verified 04/13/18 12:50) Hives Penicillins Allergy (Verified 04/13/18 12:50) Anaphylaxis strawberry Allergy (Verified 04/13/18 12:50) Hives acetaminophen Adverse Reaction (Verified 04/13/18 15:50) Vomiting Home Medications: Ambulatory Orders Medication Instructions Recorded Ergocalciferol [Vitamin D] 50,000 unit PO GARDUNO 03/17/18 Ferrous Sulfate [Iron] 325 mg PO DAILY 03/17/18 Levothyroxine Sodium [Synthroid] 112 mcg PO DAILY 03/17/18 Losartan Potassium [Cozaar] 50 mg PO DAILY 03/17/18 Oxycodone [Oxyir] 5 mg PO Q4H PRN PRN 03/17/18 RX: Aspirin E.C. [Ecotrin] 81 mg PO DAILY 03/17/18 RX: Atorvastatin Calcium 40 mg PO QHS 03/17/18 Bisacodyl [Dulcolax] 10 mg RECTAL DAILY PRN PRN 04/13/18 Cyclobenzaprine [Flexeril] 10 mg PO Q6H PRN PRN 04/13/18 Cyclobenzaprine [Flexeril] 10 mg PO QHS 04/13/18 Dextrose [Glucose Gel] 1 packet PO X1 PRN 04/13/18 Gabapentin [Neurontin] 200 mg PO BID 04/13/18 Hydrochlorothiazide [Hctz] 12.5 mg PO DAILY 04/13/18 Insulin Glargine,Hum.rec.anlog 30 unit SQ QHS 04/13/18 [Basaglar Kwikpen U-100] Lactobacillus Rhamnosus GG 1 each PO DAILY 04/13/18 [Culturelle] Mag Hydrox/Al Hydrox/Simeth 30 ml PO Q4H PRN 04/13/18 [Antacid Suspension] Magnesium Hydroxide [Milk Of 30 ml PO DAILY PRN PRN 04/13/18 Magnesia] Meclizine HCl [Antivert] 25 mg PO Q8H PRN PRN 04/13/18 Metoprolol Tartrate [Lopressor 25 mg PO BID 04/13/18 (Beta Carloz)] Na Phos,M-B/Na Phos,Di-Ba [Fleet 120 ml RECTAL X1 PRN 04/13/18 Enema] Ondansetron HCl [Zofran] 4 mg PO Q6H PRN PRN 04/13/18 RX: Glucagon 1 mg IM X1 PRN 04/13/18 Surgical History: coronary bypass surgery, - - Right carpal tunnel surgery Psychiatric History: No pertinent psych hx LAVATORY ATTENDANT History: No pertinent LAVATORY ATTENDANT history Smoking Status: Never smoker Review of Systems Constitutional: Denies: Chills, Fever, Malaise Eyes: Denies: Blurred vision, Double vision HEENT: Denies: Difficulty Hearing Cardiovascular: Reports: Edema. Denies: Chest Pain Respiratory: Denies: Cough, Hemoptysis, Pleuritic Pain, Shortness of Breath Gastrointestinal: Denies: Abdominal Pain, Constipation, Vomiting Genitourinary: Reports: Dysuria Musculoskeletal: Reports: Arm Pain, Hand Pain, Neck Pain Skin: Denies: Dryness Neurological: Reports: Confusion, Focal weakness, Numbness, Tingling. Denies: Balance problems Endocrine: Denies: Change in Body Habitus Hematologic/ Lymphatic: Denies: Easy Bruising VTE Information - Inpt Only VTE Present on Admission: No Patient Problems: Active and Suspected Problems Cervical radicular pain (Acute) - Physical Exam General: Alert, Oriented x3, Cooperative, No apparent distress HEENT: Atraumatic, Normocephalic Oral: Moist Mucosa Neck: - - nack in rigid cervical collar Lungs: Clear to auscultation, Normal air movement, No rhonchi Cardiovascular: Regular rate, Regular Rhythm, Normal S1, Normal S2, No murmurs Abdomen: Bowel Sounds Present, Non Tender, Non-Distended, Obese Extremities: - - right arm and forearm tender on palpation, Skin: No rashes Musculoskeletal: No Muscle Wasting, Arthritic Changes, Tenderness Neurological: Cranial nerves II-XII grossly intact, Deep Tendon Reflexes 2+/4 and Symmetrical - DTR diminished globally, - - power in the RUE 3-4, allodynia and hyperesthesia noted as well. All DTR diminished. Gross sensation diminished as well Psych/Mental Status: Normal Affect, Appropriate, Anxious Vital Signs Temp Pulse Resp BP Pulse Ox 98 F 67 18 157/58 H 100 04/13/18 17:05 04/13/18 17:05 04/13/18 17:05 04/13/18 17:05 04/13/18 17:05 Oxygen Delivery Method Room Air Weight: 90.1 kg Body Mass Index (BMI) 34.0 Intake and Output for Last 24 Hours 04/11/18 04/12/18 04/13/18 23:59 23:59 23:59 Intake Total 200 / 200 Balance 200 / 200 Assessment/Plan All Active Problems Cervical radicular pain (Acute) Vertigo, peripheral (Acute) Chest pain, unspecified (Acute) 1. Severe cervical radicular symptoms with pain and dysesthesias and motor weakness involving the right UE. Uncertain if some of this may be expected following her recent surgery. Will repeat cervical MRI to r/o any complication from the surgery. Start on high dose steroids and increase dose of Neurontin for neuropathic pain. Get PT/OT. If imaging concerning then will have to transfer to [facility] where surgery was done. 2. Incidental finding of very small and multiple distal pulmonary emboli bilaterally. These appear to be clinically insignificant and it is doubtful if there will be any benefit in treating these (risk may outweigh benefit in this case) Will check LE US for DVT. Will need to discuss with patient and family regarding risk vs benefit. 3. DM2. Resume home regimen. Expect insulin requirement to increase with systemic steroid administration. Will have to closely monitor. 4. Possible dementia 5. HTN Code Visit Inpatient E&M: 11665 Init Hosp L3
[2018-04-13] MEDS: Menthol/Lanolin/Calamine/Znox 113 GM Tube 1 APPLIC TOPICAL (21:57)
[2018-04-13] MEDS: Acetaminophen 500 MG Tablet 1000 MG PO (21:58)
[2018-04-13] MEDS: Metoprolol Tartrate 25 MG Tablet PO (21:59)
[2018-04-13] MEDS: Atorvastatin Calcium 40 MG Tablet PO (22:00)
[2018-04-13] MEDS: Enoxaparin 100 MG/ML Syringe 90 MG SC (22:02)
[2018-04-13] MEDS: 0.9% NaCl Peripheral Flush Adult/Peds IV (22:04)
[2018-04-13] MEDS: Insulin Lispro 100 UNIT/ML INSULN.PEN SQ (22:05)
[2018-04-13] MEDS: Glucerna Shake 120 ML LIQUID PO (22:17)
[2018-04-13 23:01] LABS: Bedside Glucose 208 mg/dL (70-110)
[2018-04-14] VITALS (10 sets, daily range): BP systolic 131–144; BP diastolic 43–86; PULSE 66–77; RESP 16–20; TEMP 36.4–36.9; O2SAT 97–100
[2018-04-14] MEDS: oxyCODONE 5 MG Tablet PO ×4 (03:26→18:12)
[2018-04-14] MEDS: Acetaminophen 500 MG Tablet 1000 MG PO (06:40)
[2018-04-14] MEDS: Levothyroxine 112 MCG Tablet PO (06:40)
[2018-04-14 06:53] LABS: Erythrocyte Sedimentation Rate 55 mm/hr (0-30)
[2018-04-14 07:41] LABS: Bedside Glucose 375 mg/dL (70-110)
[2018-04-14] MEDS: Insulin Lispro 100 UNIT/ML INSULN.PEN 8 UNIT SQ ×3 (08:02→18:00)
[2018-04-14] MEDS: Insulin Lispro 100 UNIT/ML INSULN.PEN SQ ×4 (08:03→21:06)
[2018-04-14] MEDS: Metoprolol Tartrate 25 MG Tablet PO ×2 (08:20→21:06)
[2018-04-14] MEDS: Aspirin E.C. 81 MG Tablet PO (08:20)
[2018-04-14] MEDS: Gabapentin 300 MG Capsule PO ×4 (08:20→18:12)
[2018-04-14] MEDS: Menthol/Lanolin/Calamine/Znox 113 GM Tube 1 APPLIC TOPICAL ×2 (08:21→21:08)
[2018-04-14] MEDS: Losartan Potassium 50 MG Tablet PO (08:22)
[2018-04-14] MEDS: HYDROCHLOROTHIAZIDE 12.5 MG CAPSULE PO (08:22)
[2018-04-14] MEDS: Enoxaparin 100 MG/ML Syringe 90 MG SC ×2 (08:24→21:06)
[2018-04-14] MEDS: Glucerna Shake 120 ML LIQUID PO ×4 (08:29→21:05)
[2018-04-14 13:05] LABS: Bedside Glucose 422 mg/dL (70-110)
--- NOTE | 2018-04-14 15:03 | CASEMGMT ---
Social Work Note SW met with pt as pt came from [facility]. SW met with pt. Introduced self and role at [facility]. Pt is alert and orientated x3. Pt states that she came from [facility] and she was there for not that long. Pt states that she wishes to discharge home at discharge from [facility]. Pt states that she will be living with her 's sister. Pt states that she has a son who is a physical therapist and a daughter who is a physical therapist senior executive assistant. Pt states that her recently on January 12. Pt states that she was for 57 years. SW offered support and empathy to pt. SW asked pt if she would like information on grieving/support groups. Pt confirms she would like information on support groups. SW provided pt with [facility] bereavement support services brochure. DME include cane and rollator. Pt states that she normally doesn't wear oxygen at home. Pt states that she has difficulty getting in and out tub. SW informed pt that she could have her son or daughter install hand rails for her around her tub to help with her getting in and out of the shower. Pt also states that she has difficulty with the steps in her home. SW informed pt that there are rails that could be set up around her steps to help with her getting up and down steps. SW also informed pt that there are track rails that could be installed around her steps and a chair that is available to go up and down the steps to help her. Pt states that she will have her son and daughter look into this for her as that would help her. 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 This worker will continue to follow along with pt to assist with discharge planning. NARCISA placed a call to Halina at [facility]. Halina confirms that pt came from [facility] and if she returns she will need pre-cert. Plan: TBD SNF vs. Home Kaykay Manrique PORTFOLIO STRATEGIST, TOWN PLANNER
--- NOTE | 2018-04-14 16:48 | CASEMGMT ---
Social Work Note Dr. Taveras informed this worker that he called pt's daughter to tell her that pt can be discharged back to [facility]. NARCISA informed Dr. Andrade that pt will need pre-cert to return to [facility]. NARCISA placed a call to pt's daughter Cathy to confirm discharge plans. Cathy informed this worker to call pt's son Corey as Corey is HCPOA. NARCISA placed a call to Corey. Corey confirms that pt is from [facility] and the plan is for pt to return there at discharge for more rehabilitation. NARCISA informed Corey that pt will need pre-cert from insurance and once pre-cert is obtained pt can return to [facility]. Corey states understanding. NARCISA will fax referral to [facility] tomorrow and [facility] will submit for pre-cert Plan: [facility] pending pre-cert Kaykay Manrique MAINTENANCE DIRECTOR, RESEARCH FOOD TECHNOLOGIST
[2018-04-14 18:11] LABS: Bedside Glucose 415 mg/dL (70-110)
--- NOTE | 2018-04-14 19:08 | PCM.PROGNOTE ---
Patient Problems: Active and Suspected Problems (Last Updated 04/13/18 @ 19:54 by Blas Angeles MD) Cervical radicular pain (Acute) Subjective: Patient was seen and examined today, I talked at length with her daughter, she states that since her she has noticed that her mother has cognitive decline, she did not notice it while her dad was alive but she thinks her dad had this from the family. Today when I talk with the patient, she did not know she had surgery at [facility]-she thought she was operated on at [facility]. Patient's MRI scan of her neck is not interpretable, I feel, because the patient had recent surgery, I do not feel she has a cervical spinal cord impingement. Her Decadron has been stopped. We have to get approval from her insurance company for her to go back to the residential for further skilled care I will leave her Neurontin at the present dose, I have stopped her Flexeril-I do not know why she is on this medication. - Physical Exam General: Alert, Cooperative, No apparent distress, Well developed, Well nourished, Confused HEENT: Atraumatic, PERRLA, EOMI, Normocephalic Oral: Moist Mucosa Neck: - - Patient is currently wearing a rigid cervical collar Lungs: Clear to auscultation, Normal air movement, No rhonchi, No wheeze, No rales Cardiovascular: Regular rate, Regular Rhythm, Normal S1, Normal S2, No murmurs, No Ectopic Activity, PMI Normal, No rub noted, No Gallop Abdomen: Bowel Sounds Present, Soft, Non Tender, Non-Distended, No hernias noted Extremities: No clubbing, No cyanosis, No edema, Capillary Refill Less than 3 Seconds Skin: No rashes, No breakdown Musculoskeletal: No Tenderness to Palpation of Joints or Extremities Neurological: Cranial nerves II-XII grossly intact, Neuro grossly intact, Sensory exam intact to light touch and pain, Coordination normal Psych/Mental Status: Normal Affect, - - Patient is alert but shows signs of cognitive impairment Vital Signs Temp Pulse Resp BP Pulse Ox 98.4 F 71 18 144/64 H 98 04/14/18 17:56 04/14/18 17:56 04/14/18 17:56 04/14/18 17:56 04/14/18 17:56 Oxygen Flow Rate (L/min) 2 Oxygen Delivery Method Room Air Weight: 90.1 kg Body Mass Index (BMI) 34.0 Intake and Output for Last 24 Hours 04/12/18 04/13/18 04/14/18 23:59 23:59 23:59 Intake Total 330 / 330 721 / 721 Output Total 50 / 50 1400 / 1400 Balance 280 / 280 -679 / -679 Laboratory Tests Past 24 Hrs 04/14/18 04/14/18 05:22 05:22 ESR 55 H C-React Prot Ext Range 17.10 H POC Glucose 04/14/18 04/14/18 04/14/18 17:37 12:34 07:37 POC Glucose 415 H 422 H 375 H 04/13/18 21:30 POC Glucose 208 H Medical Necessity - Tobacco Use Smoking Status: Never smoker Assessment/Plan All Active Problems (Last Updated 04/13/18 @ 19:54 by Blas Angeles MD) Vertigo, peripheral (Acute) Chest pain, unspecified (Acute) Cervical radicular pain (Acute) #1 acute pulmonary embolism-continue subcu Lovenox, patient cannot be transferred back to her rehab facility due to insurance approval, I expect this will happen early next week #2 cervical hudpmyjqyghel-[id number]-rd is difficult to ascertain how bad the patient's right cervical radiculopathy is, according to the patient, this is a chronic problem. #3 dementia-this is not been diagnosed previously but is obvious the patient has cognitive impairment # 4 degenerative disc disease of the cervical spine #5 hypertension #6 coronary artery disease Code Visit OBSV E&M: 45265 Subsequent observation care L3
--- NOTE | 2018-04-14 19:12 | PN_ITS ---
Patient Problems: Active and Suspected Problems (Last Updated 04/13/18 @ 19:54 by Blas Angeles MD) Cervical radicular pain (Acute) Subjective: Patient was seen and examined today, I talked at length with her daughter, she states that since her she has noticed that her mother has cognitive decline, she did not notice it while her dad was alive but she thinks her dad had this from the family. Today when I talk with the patient, she did not know she had surgery at [facility]-she thought she was operated on at [facility]. Patient's MRI scan of her neck is not interpretable, I feel, because the patient had recent surgery, I do not feel she has a cervical spinal cord impingement. Her Decadron has been stopped. We have to get approval from her insurance company for her to go back to the retirement for further skilled care I will leave her Neurontin at the present dose, I have stopped her Flexeril-I do not know why she is on this medication. - Physical Exam General: Alert, Cooperative, No apparent distress, Well developed, Well nourished, Confused HEENT: Atraumatic, PERRLA, EOMI, Normocephalic Oral: Moist Mucosa Neck: - - Patient is currently wearing a rigid cervical collar Lungs: Clear to auscultation, Normal air movement, No rhonchi, No wheeze, No rales Cardiovascular: Regular rate, Regular Rhythm, Normal S1, Normal S2, No murmurs, No Ectopic Activity, PMI Normal, No rub noted, No Gallop Abdomen: Bowel Sounds Present, Soft, Non Tender, Non-Distended, No hernias noted Extremities: No clubbing, No cyanosis, No edema, Capillary Refill Less than 3 Seconds Skin: No rashes, No breakdown Musculoskeletal: No Tenderness to Palpation of Joints or Extremities Neurological: Cranial nerves II-XII grossly intact, Neuro grossly intact, Sensory exam intact to light touch and pain, Coordination normal Psych/Mental Status: Normal Affect, - - Patient is alert but shows signs of cognitive impairment Vital Signs Temp Pulse Resp BP Pulse Ox 98.4 F 71 18 144/64 H 98 04/14/18 17:56 04/14/18 17:56 04/14/18 17:56 04/14/18 17:56 04/14/18 17:56 Oxygen Flow Rate (L/min) 2 Oxygen Delivery Method Room Air Weight: 90.1 kg Body Mass Index (BMI) 34.0 Intake and Output for Last 24 Hours 04/12/18 04/13/18 04/14/18 23:59 23:59 23:59 Intake Total 330 / 330 721 / 721 Output Total 50 / 50 1400 / 1400 Balance 280 / 280 -679 / -679 Laboratory Tests Past 24 Hrs 04/14/18 04/14/18 05:22 05:22 ESR 55 H C-React Prot Ext Range 17.10 H POC Glucose 04/14/18 04/14/18 04/14/18 17:37 12:34 07:37 POC Glucose 415 H 422 H 375 H 04/13/18 21:30 POC Glucose 208 H Medical Necessity - Tobacco Use Smoking Status: Never smoker Assessment/Plan All Active Problems (Last Updated 04/13/18 @ 19:54 by Blas Angeles MD) Vertigo, peripheral (Acute) Chest pain, unspecified (Acute) Cervical radicular pain (Acute) #1 acute pulmonary embolism-continue subcu Lovenox, patient cannot be transferred back to her rehab facility due to insurance approval, I expect this will happen early next week #2 cervical ixgydlvzabjgl-dqnvrta-sm is difficult to ascertain how bad the patient's right cervical radiculopathy is, according to the patient, this is a chronic problem. 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
[2018-04-14] MEDS: Atorvastatin Calcium 40 MG Tablet PO (21:05)
[2018-04-14 21:20] LABS: Bedside Glucose 415 mg/dL (70-110)
[2018-04-15] VITALS (7 sets, daily range): BP systolic 128–142; BP diastolic 46–64; PULSE 65–70; RESP 18; TEMP 36.6–37.2; O2SAT 96–100
[2018-04-15] MEDS: oxyCODONE 5 MG Tablet PO ×3 (01:56→19:59)
[2018-04-15] MEDS: Levothyroxine 112 MCG Tablet PO (04:33)
[2018-04-15] MEDS: Insulin Lispro 100 UNIT/ML INSULN.PEN 8 UNIT SQ ×3 (07:54→17:08)
[2018-04-15] MEDS: Insulin Lispro 100 UNIT/ML INSULN.PEN SQ ×4 (07:56→22:10)
[2018-04-15] MEDS: HYDROCHLOROTHIAZIDE 12.5 MG CAPSULE PO (07:57)
[2018-04-15] MEDS: Losartan Potassium 50 MG Tablet PO (08:02)
[2018-04-15] MEDS: Metoprolol Tartrate 25 MG Tablet PO ×2 (08:02→22:09)
[2018-04-15] MEDS: Aspirin E.C. 81 MG Tablet PO (08:02)
[2018-04-15] MEDS: Menthol/Lanolin/Calamine/Znox 113 GM Tube 1 APPLIC TOPICAL ×2 (08:03→22:10)
[2018-04-15] MEDS: Glucerna Shake 120 ML LIQUID PO ×4 (08:03→22:09)
[2018-04-15 08:30] LABS: Bedside Glucose 346 mg/dL (70-110)
--- NOTE | 2018-04-15 09:51 | CASEMGMT ---
Social Work Note NARCISA placed a call to Halina at [facility] asking if she had copy of pt's new insurance. Halina states she doesn't but will fax over the benefits that they were able to pull on pt's insurances. NARCISA informed Halina that pt's son Corey is stating that pt will need to go back to [facility] for continued rehabilitation before returning home. Per previous conversation with pt's daughter Cathy Nicole is pt's HCPOA. Pt does have some confusion and some cognitive impairment per progress notes. NARCISA faxed clinicals to Halina at [facility] and informed her to submit for pre-cert. Plan: [facility] pending pre-cert Kaykay Manrique HYDRAULIC TESTER, CARDIAC NURSE SPECIALIST
[2018-04-15] MEDS: Enoxaparin 100 MG/ML Syringe 90 MG SC ×2 (11:11→22:09)
[2018-04-15] MEDS: Gabapentin 300 MG Capsule PO ×2 (12:06→17:09)
[2018-04-15 12:10] LABS: Bedside Glucose 386 mg/dL (70-110)
--- NOTE | 2018-04-15 16:49 | CHAPLAIN ---
Type of Pastoral Visit _x__ Initial Visit ___ Follow-up Visit ___ On-call Visit ___ General Patient Visit ___ Spiritual Assessment ___ Family Conference ___ Bereavement ___ Rapid Response ___ Code Blue ___ Other (describe below) Pastoral Care Referral From _x__ Patient ___ Family ___ Nurse ___ Physician ___ Alterations Supervisor ___ Needle Grinder ___ Other (describe below) Sacrament/Intervention _x__ Active listening ___ Anointing ___ Buddhist _x__ Bereavement ___ Communion _x__ Talita exploration ___ _x__ Life review _x__ Prayer ___ Reconciliation ___ Sacrament of Sick _x__ Supportive presence ___ Wedding ___ Other (describe below) Pastoral Comments patient has grief as primary issue at this time; pt has also sold home, had major health issues, and faces decisions about future; talked of how this compounds her grief and sense of loss; allowed pt to talk through some of her issues and gave feedback; pt related that this was very helpful and believed that she has some direction; prayer welcomed
[2018-04-15 17:15] LABS: Bedside Glucose 287 mg/dL (70-110)
--- NOTE | 2018-04-15 18:48 | PCM.PROGNOTE ---
Subjective: Patient was seen and examined today, she still complains of some right arm pain but has no other complaints. We are currently awaiting insurance approval for her to return back to her long-term facility. - Physical Exam General: Alert, Cooperative, No apparent distress, Well developed, Confused HEENT: Atraumatic, PERRLA, EOMI, Normocephalic Oral: Moist Mucosa Neck: - - She has rigid cervical neck collar Lungs: Clear to auscultation, Normal air movement, No rhonchi, No wheeze, No rales Cardiovascular: Regular rate, Regular Rhythm, Normal S1, Normal S2, No murmurs, No Ectopic Activity, PMI Normal, No rub noted, No Gallop Abdomen: Bowel Sounds Present, Soft, Non Tender, Non-Distended, No hernias noted Extremities: No clubbing, No cyanosis, No edema, Capillary Refill Less than 3 Seconds Skin: No rashes, No breakdown Neurological: Cranial nerves II-XII grossly intact, Neuro grossly intact, Sensory exam intact to light touch and pain, Coordination normal Psych/Mental Status: Normal Affect, Appropriate, Alert and oriented to time, place, person, mood and affect Vital Signs Temp Pulse Resp BP Pulse Ox 97.9 F 69 18 142/64 H 98 04/15/18 14:15 04/15/18 14:15 04/15/18 14:15 04/15/18 14:15 04/15/18 14:15 Oxygen Flow Rate (L/min) 2 Oxygen Delivery Method Room Air Weight: 90.1 kg Body Mass Index (BMI) 34.0 Intake and Output for Last 24 Hours 04/13/18 04/14/18 04/15/18 23:59 23:59 23:59 Intake Total 330 / 330 1081 / 1081 740 / 740 Output Total 50 / 50 1400 / 1400 1200 / 1200 Balance 280 / 280 -319 / -319 -460 / -460 POC Glucose 04/15/18 04/15/18 04/15/18 17:08 12:04 07:50 POC Glucose 287 H 386 H 346 H 04/14/18 21:01 POC Glucose 415 H Medical Necessity - Tobacco Use Smoking Status: Never smoker Assessment/Plan All Active Problems (Last Updated 04/13/18 @ 19:54 by Blas Angeles MD) Vertigo, peripheral (Resolved) Chest pain, unspecified (Acute) #1 acute pulmonary embolism-continue subcu Lovenox, patient cannot be transferred back to her rehab facility due to insurance approval, I expect this will happen early next week, consideration could be made to transition the patient to Eliquis or Xarelto #2 cervical xenqgqhpxxgfv-mfvherp-bo is difficult to ascertain how bad the patient's right cervical radiculopathy is, according to the patient, this is a chronic problem. #3 dementia-this is not been diagnosed previously but is obvious the patient has cognitive impairment, I talked to her daughter yesterday about this # 4 degenerative disc disease of the cervical spine #5 hypertension #6 coronary artery disease Code Visit Inpatient E&M: 19543 Subs Hosp L2
[2018-04-15] MEDS: Atorvastatin Calcium 40 MG Tablet PO (22:09)
[2018-04-15 22:20] LABS: Bedside Glucose 297 mg/dL (70-110)
[2018-04-16 03:00] VITALS: BP 137/63; PULSE 63; RESP 16; TEMP 36.6; O2SAT 98
[2018-04-16] MEDS: oxyCODONE 5 MG Tablet PO ×3 (06:25→21:17)
[2018-04-16] MEDS: Levothyroxine 112 MCG Tablet PO (06:25)
[2018-04-16 08:09] VITALS: BP 144/52; PULSE 64; RESP 18; TEMP 36.6; O2SAT 96
[2018-04-16] MEDS: Aspirin E.C. 81 MG Tablet PO (08:16)
[2018-04-16] MEDS: HYDROCHLOROTHIAZIDE 12.5 MG CAPSULE PO (08:16)
[2018-04-16] MEDS: Gabapentin 300 MG Capsule PO ×3 (08:16→16:53)
[2018-04-16 08:19] VITALS: PULSE 64
[2018-04-16] MEDS: Metoprolol Tartrate 25 MG Tablet PO ×2 (08:19→21:12)
[2018-04-16] MEDS: Insulin Lispro 100 UNIT/ML INSULN.PEN 12 UNIT SQ ×3 (08:20→16:53)
[2018-04-16] MEDS: Enoxaparin 100 MG/ML Syringe 90 MG SC (08:20)
[2018-04-16] MEDS: Losartan Potassium 50 MG Tablet PO (08:20)
[2018-04-16] MEDS: Menthol/Lanolin/Calamine/Znox 113 GM Tube 1 APPLIC TOPICAL ×2 (08:21→21:09)
[2018-04-16] MEDS: Glucerna Shake 120 ML LIQUID PO ×4 (08:22→21:21)
[2018-04-16 08:36] LABS: Bedside Glucose 129 mg/dL (70-110)
--- NOTE | 2018-04-16 09:24 | PCM.PN.HOSP ---
Subjective: Neck pain tolerable. States still upset over the of her in January. Also states that she is upset with her mother accusing her as a child for numerous grievances that occurred her family. Patient states that her mother blamed the daughter for her 's cardiac arrest at 48 years old. Patient preferring to wear the neck brace over not despite her surgery being done in January. She is unaware of who the surgeon was who performed it. Vitals/I&O's: Vital Signs Temp Pulse Resp BP Pulse Ox 36.6 C 64 18 144/52 H 96 04/16/18 08:09 04/16/18 08:19 04/16/18 08:09 04/16/18 08:09 04/16/18 08:09 Oxygen Flow Rate (L/min) 2 Oxygen Delivery Method Room Air Weight: 90.1 kg Body Mass Index (BMI) 34.0 Intake and Output for Last 24 Hours 04/14/18 04/15/18 04/16/18 23:59 23:59 23:59 Intake Total 1081 / 1081 1400 / 1400 Output Total 1400 / 1400 1400 / 1400 Balance -319 / -319 0 / 0 General: Alert, Cooperative, No apparent distress, - - tearful. wearing a neck brace. HEENT: Atraumatic, Normocephalic Oral: Moist Mucosa, No Gingival or Mucosal Lesions/ Ulcerations Neck: No Nodes, Thyroid Normal Size and Texture Lungs: Clear to auscultation, Normal air movement, No rhonchi, No wheeze Cardiovascular: Regular rate, Regular Rhythm, Normal S1, Normal S2, No murmurs Abdomen: Bowel Sounds Present, Soft, Non Tender, Non-Distended Extremities: No edema, No Calf Tenderness Skin: No rashes, No breakdown Musculoskeletal: No Tenderness to Palpation of Joints or Extremities, No Muscle Wasting Neurological: - - MS 5/5 in LUE. 4/5 RUE. Psych/Mental Status: Anxious, Depressed Laboratory Results 04/15/18 12:04: POC Glucose 386 H 04/15/18 17:08: POC Glucose 287 H 04/15/18 22:06: POC Glucose 297 H 04/16/18 08:12: POC Glucose 129 H Current Medications Acetaminophen (Tylenol) 1,000 mg PO TID [facility] Last Admin: 04/16/18 06:05 Dose: Not Given Aspirin (Ecotrin) 81 mg PO DAILY@0800 [facility] Last Admin: 04/16/18 08:16 Dose: 81 mg Atorvastatin Calcium (Lipitor) 40 mg PO QHS [facility] Last Admin: 04/15/18 22:09 Dose: 40 mg Calamine/Phenol (Calmoseptine Ointment) 1 applic TOPICAL BID [facility] PRN Reason: Protocol Last Admin: 04/16/18 08:21 Dose: 1 applicatio Dextrose (D50w Syringe) 0 gm IV X1 PRN; Protocol PRN Reason: Hypoglycemia Enoxaparin Sodium (Lovenox) 90 mg SC Q12 [facility] Last Admin: 04/16/18 08:20 Dose: 90 mg Gabapentin (Neurontin) 300 mg PO TIDCM [facility] Last Admin: 04/16/18 08:16 Dose: 300 mg Glucagon () 1 mg IM X1 PRN PRN Reason: HYPOGLYCEMIA Hydrochlorothiazide (Hydrochlorothiazide) 12.5 mg PO DAILY [facility] Last Admin: 04/16/18 08:16 Dose: 12.5 mg Insulin Glargine (Lantus (Bkc)) 30 units SC QHS [facility] Last Admin: 04/15/18 22:10 Dose: 30 units Insulin Human Lispro (Humalog Kwikpen (Bkc)) 0 unit SQ ACHS [facility] PRN Reason: Protocol Last Admin: 04/16/18 08:14 Dose: Not Given Insulin Human Lispro (Humalog Kwikpen (Bkc)) 12 unit SQ TIDAC [facility] Last Admin: 04/16/18 08:20 Dose: 12 u Levothyroxine Sodium (Synthroid) 112 mcg PO DAILY@0600 [facility] Last Admin: 04/16/18 06:25 Dose: 112 mcg Losartan Potassium (Cozaar) 50 mg PO DAILY [facility] Last Admin: 04/16/18 08:20 Dose: 50 mg Magnesium Hydroxide (Milk Of Magnesia) 30 ml PO DAILY PRN PRN PRN Reason: Constipation Metoprolol Tartrate (Lopressor (Beta Carloz)) 25 mg PO BID [facility] Last Admin: 04/16/18 08:19 Dose: 25 mg Nutritional Formula (Lactose Free) (Glucerna Shake) 120 ml PO 4X/DAY [facility] Last Admin: 04/16/18 08:22 Dose: 120 ml Ondansetron HCl (Zofran) 4 mg IV Q8H PRN PRN PRN Reason: NAUSEA/VOMITING Oxycodone HCl (Oxyir) 5 mg PO Q4H PRN PRN PRN Reason: PAIN Last Admin: 04/16/18 06:25 Dose: 5 mg Sodium Chloride () 5 - 30 ml IV UD PRN PRN Reason: SALINE FLUSH Last Admin: 04/13/18 22:04 Dose: 10 ml Medical Necessity - Tobacco Use Smoking Status: Never smoker Assessment/Plan All Active Problems (Last Updated 04/13/18 @ 19:54 by Blas Angeles MD) Vertigo, peripheral (Resolved) Chest pain, unspecified (Acute) 1. PE: change to Xarelto from Lovenox treat for 6 months 2. Renal mass: noted on CTA chest pt had renl US on 02/04/18 at [place] that showed a cyst. no further work up at this time 3. Depression: pt still upset about 's passing on 01/12 however, still harboring grief and regret about being blamed by her mother as a child I recommended SSRI and made patient aware that she will not note anything for weeks, and dose may need to be increased Pt noting difficulties with memory. Depression can appear like Dementia If no change to memory difficulties after 2-3 months of SSRI, then follow up with geriatrics start Zoloft 50 4. Cervical radiculopathy reviewed [facility] No surgical notes, but there were some labs ordered at [facility] by Dr. Juan Daniel Garcia (neurosurgery) will request records from office in regards to the need for the brace. 5. Debility: awaiting on precert to [facility] Greater than 40 minutes, of which greater than 50% time was counseling pt about depression and treatment. Code Visit Inpatient E&M: 57007 Subs Hosp L3
--- NOTE | 2018-04-16 09:30 | PN_ITS ---
Subjective: Neck pain tolerable. States still upset over the of her in January. Also states that she is upset with her mother accusing her as a child for numerous grievances that occurred her family. Patient states that her mother blamed the daughter for her 's cardiac arrest at 48 years old. Patient preferring to wear the neck brace over not despite her surgery being done in January. She is unaware of who the surgeon was who performed it. Vitals/I&O's: Vital Signs Temp Pulse Resp BP Pulse Ox 36.6 C 64 18 144/52 H 96 04/16/18 08:09 04/16/18 08:19 04/16/18 08:09 04/16/18 08:09 04/16/18 08:09 Oxygen Flow Rate (L/min) 2 Oxygen Delivery Method Room Air Weight: 90.1 kg Body Mass Index (BMI) 34.0 Intake and Output for Last 24 Hours 04/14/18 04/15/18 04/16/18 23:59 23:59 23:59 Intake Total 1081 / 1081 1400 / 1400 Output Total 1400 / 1400 1400 / 1400 Balance -319 / -319 0 / 0 General: Alert, Cooperative, No apparent distress, - - tearful. wearing a neck brace. HEENT: Atraumatic, Normocephalic Oral: Moist Mucosa, No Gingival or Mucosal Lesions/ Ulcerations Neck: No Nodes, Thyroid Normal Size and Texture Lungs: Clear to auscultation, Normal air movement, No rhonchi, No wheeze Cardiovascular: Regular rate, Regular Rhythm, Normal S1, Normal S2, No murmurs Abdomen: Bowel Sounds Present, Soft, Non Tender, Non-Distended Extremities: No edema, No Calf Tenderness Skin: No rashes, No breakdown Musculoskeletal: No Tenderness to Palpation of Joints or Extremities, No Muscle Wasting Neurological: - - MS 5/5 in LUE. 4/5 RUE. Psych/Mental Status: Anxious, Depressed Laboratory Results 04/15/18 12:04: POC Glucose 386 H 04/15/18 17:08: POC Glucose 287 H 04/15/18 22:06: POC Glucose 297 H 04/16/18 08:12: POC Glucose 129 H Current Medications Acetaminophen (Tylenol) 1,000 mg PO TID [facility] Last Admin: 04/16/18 06:05 Dose: Not Given Aspirin (Ecotrin) 81 mg PO DAILY@0800 [facility] Last Admin: 04/16/18 08:16 Dose: 81 mg Atorvastatin Calcium (Lipitor) 40 mg PO QHS [facility] Last Admin: 04/15/18 22:09 Dose: 40 mg Calamine/Phenol (Calmoseptine Ointment) 1 applic TOPICAL BID [facility] PRN Reason: Protocol Last Admin: 04/16/18 08:21 Dose: 1 applicatio Dextrose (D50w Syringe) 0 gm IV X1 PRN; Protocol PRN Reason: Hypoglycemia Enoxaparin Sodium (Lovenox) 90 mg SC Q12 [facility] Last Admin: 04/16/18 08:20 Dose: 90 mg Gabapentin (Neurontin) 300 mg PO TIDCM [facility] Last Admin: 04/16/18 08:16 Dose: 300 mg Glucagon () 1 mg IM X1 PRN PRN Reason: HYPOGLYCEMIA Hydrochlorothiazide (Hydrochlorothiazide) 12.5 mg PO DAILY [facility] Last Admin: 04/16/18 08:16 Dose: 12.5 mg Insulin Glargine (Lantus (Bkc)) 30 units SC QHS [facility] Last Admin: 04/15/18 22:10 Dose: 30 units Insulin Human Lispro (Humalog Kwikpen (Bkc)) 0 unit SQ ACHS [facility] PRN Reason: Protocol Last Admin: 04/16/18 08:14 Dose: Not Given Insulin Human Lispro (Humalog Kwikpen (Bkc)) 12 unit SQ TIDAC [facility] Last Admin: 04/16/18 08:20 Dose: 12 u Levothyroxine Sodium (Synthroid) 112 mcg PO DAILY@0600 [facility] Last Admin: 04/16/18 06:25 Dose: 112 mcg Losartan Potassium (Cozaar) 50 mg PO DAILY [facility] Last Admin: 04/16/18 08:20 Dose: 50 mg Magnesium Hydroxide (Milk Of Magnesia) 30 ml PO DAILY PRN PRN PRN Reason: Constipation Metoprolol Tartrate (Lopressor (Beta Carloz)) 25 mg PO BID [facility] Last Admin: 04/16/18 08:19 Dose: 25 mg Nutritional Formula (Lactose Free) (Glucerna Shake) 120 ml PO 4X/DAY [facility] Last Admin: 04/16/18 08:22 Dose: 120 ml Ondansetron HCl (Zofran) 4 mg IV Q8H PRN PRN PRN Reason: NAUSEA/VOMITING Oxycodone HCl (Oxyir) 5 mg PO Q4H PRN PRN PRN Reason: PAIN Last Admin: 04/16/18 06:25 Dose: 5 mg Sodium Chloride () 5 - 30 ml IV UD PRN PRN Reason: SALINE FLUSH Last Admin: 04/13/18 22:04 Dose: 10 ml Medical Necessity - Tobacco Use Smoking Status: Never smoker Assessment/Plan All Active Problems (Last Updated 04/13/18 @ 19:54 by Blas Angeles MD) Vertigo, peripheral (Resolved) Chest pain, unspecified (Acute) 1. PE: * change to Xarelto from Lovenox * treat for 6 months 2. Renal mass: * noted on CTA chest * pt had renl US on 02/04/18 at [place] that showed a cyst. no further work up at this time 3. Depression: * pt still upset about 's passing on 01/12 * however, still harboring grief and regret about being blamed by her mother as a child * I recommended SSRI and made patient aware that she will not note anything for weeks, and dose may need to be increased * Pt noting difficulties with memory. Depression can appear like Dementia * If no change to memory difficulties after 2-3 months of SSRI, then follow up with geriatrics * start Zoloft 50 4. Cervical radiculopathy * reviewed [facility] * No surgical notes, but there were some labs ordered at [facility] by Dr. Juan Daniel Garcia (neurosurgery) * will request records from office in regards to the need for the brace. 5. Debility: * awaiting on precert * to [facility] Greater than 40 minutes, of which greater than 50% time was counseling pt about depression and treatment. Code Visit Inpatient E&M: 15752 Subs Hosp L3
[2018-04-16] MEDS: Insulin Lispro 100 UNIT/ML INSULN.PEN SQ ×2 (11:35→21:10)
[2018-04-16] MEDS: Sertraline 50 MG Tablet PO (11:35)
[2018-04-16 11:46] LABS: Bedside Glucose 169 mg/dL (70-110)
[2018-04-16 14:15] VITALS: BP 126/42; PULSE 66; RESP 18; TEMP 36.7; O2SAT 98
[2018-04-16] MEDS: Rivaroxaban 15 MG Tablet PO (16:52)
[2018-04-16 17:01] LABS: Bedside Glucose 99 mg/dL (70-110)
[2018-04-16 20:29] VITALS: BP 145/56; PULSE 66; RESP 18; TEMP 37.1; O2SAT 99
[2018-04-16 21:12] VITALS: BP 145/56; PULSE 66
[2018-04-16] MEDS: Atorvastatin Calcium 40 MG Tablet PO (21:14)
[2018-04-16 22:15] LABS: Bedside Glucose 154 mg/dL (70-110)
[2018-04-17] VITALS (7 sets, daily range): BP systolic 122–150; BP diastolic 53–68; PULSE 60–82; RESP 16–18; TEMP 36.6–37.1; O2SAT 95–99
[2018-04-17] MEDS: oxyCODONE 5 MG Tablet PO (04:25)
[2018-04-17 04:31] LABS: Bedside Glucose 100 mg/dL (70-110)
[2018-04-17] MEDS: Levothyroxine 112 MCG Tablet PO (05:33)
[2018-04-17 07:46] LABS: Bedside Glucose 101 mg/dL (70-110)
--- NOTE | 2018-04-17 07:59 | PCA ---
Addendum entered by Cash Joseph 04/17/18 08:24: Received Busy Error messages on both faxes. Note left for weather strip mechanic to refax on Wednesday. Original Note: Per order, obtained signed release of medical records, faxed to [facility] ([phone]) as well as [facility] ([phone]). Placed note on weather strip mechanic desk for Wednesday weather strip mechanic to call and check on obtaining records.
--- NOTE | 2018-04-17 08:43 | PCM.PN.HOSP ---
Subjective: Patient still with right arm weakness and occasional paresthesias. Patient states that her arm is overall worse than it was before her surgery. Patient surgery she will use was February 01. Patient states that her arm really is not any worse and was initially after surgery. Patient thinks that she seen her surgeon after surgery but she does not recall off hand. Vitals/I&O's: Vital Signs Temp Pulse Resp BP Pulse Ox 36.6 C 67 16 134/67 H 99 04/17/18 07:43 04/17/18 07:43 04/17/18 07:43 04/17/18 07:43 04/17/18 07:43 Oxygen Flow Rate (L/min) 2 Oxygen Delivery Method Room Air Weight: 90.1 kg Body Mass Index (BMI) 34.0 Intake and Output for Last 24 Hours 04/15/18 04/16/18 04/17/18 23:59 23:59 23:59 Intake Total 1400 / 1400 720 / 720 120 / 120 Output Total 1400 / 1400 900 / 900 Balance 0 / 0 720 / 720 -780 / -780 General: Alert, Cooperative, No apparent distress HEENT: Atraumatic, Normocephalic Oral: Moist Mucosa, No Gingival or Mucosal Lesions/ Ulcerations Neck: No Nodes, Thyroid Normal Size and Texture Lungs: Clear to auscultation, Normal air movement, No rhonchi, No wheeze Cardiovascular: Regular rate, Regular Rhythm, Normal S1, Normal S2, No murmurs Abdomen: Bowel Sounds Present, Soft, Non Tender, Non-Distended, No Hepato-splenomegaly Extremities: No edema, No Calf Tenderness Neurological: - - Muscle strength 5 5 in left upper extremity and 4 out of 5 in the right upper extremity. Psych/Mental Status: Normal Affect, Appropriate Laboratory Results 04/16/18 11:33: POC Glucose 169 H 04/16/18 16:50: POC Glucose 99 04/16/18 21:06: POC Glucose 154 H 04/17/18 03:55: POC Glucose 100 04/17/18 07:40: POC Glucose 101 Current Medications Acetaminophen (Tylenol) 1,000 mg PO TID [facility] Last Admin: 04/17/18 04:25 Dose: Not Given Aspirin (Ecotrin) 81 mg PO DAILY@0800 [facility] Last Admin: 04/16/18 08:16 Dose: 81 mg Atorvastatin Calcium (Lipitor) 40 mg PO QHS [facility] Last Admin: 04/16/18 21:14 Dose: 40 mg Calamine/Phenol (Calmoseptine Ointment) 1 applic TOPICAL BID [facility] PRN Reason: Protocol Last Admin: 04/16/18 21:09 Dose: 1 applicatio Dextrose (D50w Syringe) 0 gm IV X1 PRN; Protocol PRN Reason: Hypoglycemia Gabapentin (Neurontin) 300 mg PO TIDCM [facility] Last Admin: 04/16/18 16:53 Dose: 300 mg Glucagon () 1 mg IM X1 PRN PRN Reason: HYPOGLYCEMIA Hydrochlorothiazide (Hydrochlorothiazide) 12.5 mg PO DAILY [facility] Last Admin: 04/16/18 08:16 Dose: 12.5 mg Insulin Glargine (Lantus (Bkc)) 40 units SC QHS [facility] Last Admin: 04/16/18 21:12 Dose: 40 units Insulin Human Lispro (Humalog Kwikpen (Bkc)) 0 unit SQ ACHS [facility] PRN Reason: Protocol Last Admin: 04/17/18 07:48 Dose: Not Given Insulin Human Lispro (Humalog Kwikpen (Bkc)) 12 unit SQ TIDAC [facility] Last Admin: 04/16/18 16:53 Dose: 12 u Levothyroxine Sodium (Synthroid) 112 mcg PO DAILY@0600 [facility] Last Admin: 04/17/18 05:33 Dose: 112 mcg Losartan Potassium (Cozaar) 50 mg PO DAILY [facility] Last Admin: 04/16/18 08:20 Dose: 50 mg Magnesium Hydroxide (Milk Of Magnesia) 30 ml PO DAILY PRN PRN PRN Reason: Constipation Metoprolol Tartrate (Lopressor (Beta Carloz)) 25 mg PO BID [facility] Last Admin: 04/16/18 21:12 Dose: 25 mg Nutritional Formula (Lactose Free) (Glucerna Shake) 120 ml PO 4X/DAY [facility] Last Admin: 04/16/18 21:21 Dose: 120 ml Ondansetron HCl (Zofran) 4 mg IV Q8H PRN PRN PRN Reason: NAUSEA/VOMITING Oxycodone HCl (Oxyir) 5 mg PO Q4H PRN PRN PRN Reason: PAIN Last Admin: 04/17/18 04:25 Dose: 5 mg [facility] Last Admin: 04/16/18 16:52 Dose: 15 mg Sertraline HCl (Zoloft) 50 mg PO DAILY [facility] Last Admin: 04/16/18 11:35 Dose: 50 mg Sodium Chloride () 5 - 30 ml IV UD PRN PRN Reason: SALINE FLUSH Last Admin: 04/13/18 22:04 Dose: 10 ml Medical Necessity - Tobacco Use Smoking Status: Never smoker Assessment/Plan All Active Problems (Last Updated 04/13/18 @ 19:54 by Blas Angeles MD) Vertigo, peripheral (Resolved) Chest pain, unspecified (Acute) 1. PE: change to Xarelto from Lovenox treat for 6 months 2. Renal mass: noted on CTA chest pt had renl US on 02/04/18 at [place] that showed a cyst. no further work up at this time 3. Depression: pt still upset about 's passing on 01/12 however, still harboring grief and regret about being blamed by her mother as a child I recommended SSRI and made patient aware that she will not note anything for weeks, and dose may need to be increased Pt noting difficulties with memory. Depression can appear like Dementia If no change to memory difficulties after 2-3 months of SSRI, then follow up with geriatrics start Zoloft 50 4. Cervical radiculopathy reviewed [facility] No surgical notes, but there were some labs ordered at [facility] by Dr. Juan Daniel Garcia (neurosurgery) will request records from office in regards to the need for the brace. 5. Debility: [facility] Code Visit Inpatient E&M: 97299 Subs Hosp L2
[2018-04-17] MEDS: Insulin Lispro 100 UNIT/ML INSULN.PEN 12 UNIT SQ ×3 (08:44→17:41)
[2018-04-17] MEDS: Gabapentin 300 MG Capsule PO ×3 (08:45→17:42)
[2018-04-17] MEDS: Aspirin E.C. 81 MG Tablet PO (08:45)
[2018-04-17] MEDS: Metoprolol Tartrate 25 MG Tablet PO ×2 (08:46→22:49)
[2018-04-17] MEDS: Rivaroxaban 15 MG Tablet PO ×2 (08:46→17:42)
[2018-04-17] MEDS: Menthol/Lanolin/Calamine/Znox 113 GM Tube 1 APPLIC TOPICAL ×2 (08:46→22:51)
--- NOTE | 2018-04-17 08:46 | PN_ITS ---
Subjective: Patient still with right arm weakness and occasional paresthesias. Patient states that her arm is overall worse than it was before her surgery. Patient surgery she will use was February 01. Patient states that her arm really is not any worse and was initially after surgery. Patient thinks that she seen her surgeon after surgery but she does not recall off hand. Vitals/I&O's: Vital Signs Temp Pulse Resp BP Pulse Ox 36.6 C 67 16 134/67 H 99 04/17/18 07:43 04/17/18 07:43 04/17/18 07:43 04/17/18 07:43 04/17/18 07:43 Oxygen Flow Rate (L/min) 2 Oxygen Delivery Method Room Air Weight: 90.1 kg Body Mass Index (BMI) 34.0 Intake and Output for Last 24 Hours 04/15/18 04/16/18 04/17/18 23:59 23:59 23:59 Intake Total 1400 / 1400 720 / 720 120 / 120 Output Total 1400 / 1400 900 / 900 Balance 0 / 0 720 / 720 -780 / -780 General: Alert, Cooperative, No apparent distress HEENT: Atraumatic, Normocephalic Oral: Moist Mucosa, No Gingival or Mucosal Lesions/ Ulcerations Neck: No Nodes, Thyroid Normal Size and Texture Lungs: Clear to auscultation, Normal air movement, No rhonchi, No wheeze Cardiovascular: Regular rate, Regular Rhythm, Normal S1, Normal S2, No murmurs Abdomen: Bowel Sounds Present, Soft, Non Tender, Non-Distended, No Hepato- splenomegaly Extremities: No edema, No Calf Tenderness Neurological: - - Muscle strength 5 5 in left upper extremity and 4 out of 5 in the right upper extremity. Psych/Mental Status: Normal Affect, Appropriate Laboratory Results 04/16/18 11:33: POC Glucose 169 H 04/16/18 16:50: POC Glucose 99 04/16/18 21:06: POC Glucose 154 H 04/17/18 03:55: POC Glucose 100 04/17/18 07:40: POC Glucose 101 Current Medications Acetaminophen (Tylenol) 1,000 mg PO TID [facility] Last Admin: 04/17/18 04:25 Dose: Not Given Aspirin (Ecotrin) 81 mg PO DAILY@0800 [facility] Last Admin: 04/16/18 08:16 Dose: 81 mg Atorvastatin Calcium (Lipitor) 40 mg PO QHS [facility] Last Admin: 04/16/18 21:14 Dose: 40 mg Calamine/Phenol (Calmoseptine Ointment) 1 applic TOPICAL BID [facility] PRN Reason: Protocol Last Admin: 04/16/18 21:09 Dose: 1 applicatio Dextrose (D50w Syringe) 0 gm IV X1 PRN; Protocol PRN Reason: Hypoglycemia Gabapentin (Neurontin) 300 mg PO TIDCM [facility] Last Admin: 04/16/18 16:53 Dose: 300 mg Glucagon () 1 mg IM X1 PRN PRN Reason: HYPOGLYCEMIA Hydrochlorothiazide (Hydrochlorothiazide) 12.5 mg PO DAILY [facility] Last Admin: 04/16/18 08:16 Dose: 12.5 mg Insulin Glargine (Lantus (Bkc)) 40 units SC QHS [facility] Last Admin: 04/16/18 21:12 Dose: 40 units Insulin Human Lispro (Humalog Kwikpen (Bkc)) 0 unit SQ ACHS [facility] PRN Reason: Protocol Last Admin: 04/17/18 07:48 Dose: Not Given Insulin Human Lispro (Humalog Kwikpen (Bkc)) 12 unit SQ TIDAC [facility] Last Admin: 04/16/18 16:53 Dose: 12 u Levothyroxine Sodium (Synthroid) 112 mcg PO DAILY@0600 [facility] Last Admin: 04/17/18 05:33 Dose: 112 mcg Losartan Potassium (Cozaar) 50 mg PO DAILY [facility] Last Admin: 04/16/18 08:20 Dose: 50 mg Magnesium Hydroxide (Milk Of Magnesia) 30 ml PO DAILY PRN PRN PRN Reason: Constipation Metoprolol Tartrate (Lopressor (Beta Carloz)) 25 mg PO BID [facility] Last Admin: 04/16/18 21:12 Dose: 25 mg Nutritional Formula (Lactose Free) (Glucerna Shake) 120 ml PO 4X/DAY [facility] Last Admin: 04/16/18 21:21 Dose: 120 ml Ondansetron HCl (Zofran) 4 mg IV Q8H PRN PRN PRN Reason: NAUSEA/VOMITING Oxycodone HCl (Oxyir) 5 mg PO Q4H PRN PRN PRN Reason: PAIN Last Admin: 04/17/18 04:25 Dose: 5 mg [facility]) [facility] Last Admin: 04/16/18 16:52 Dose: 15 mg Sertraline HCl (Zoloft) 50 mg PO DAILY [facility] Last Admin: 04/16/18 11:35 Dose: 50 mg Sodium Chloride () 5 - 30 ml IV UD PRN PRN Reason: SALINE FLUSH Last Admin: 04/13/18 22:04 Dose: 10 ml Medical Necessity - Tobacco Use Smoking Status: Never smoker Assessment/Plan All Active Problems (Last Updated 04/13/18 @ 19:54 by Blas Angeles MD) Vertigo, peripheral (Resolved) Chest pain, unspecified (Acute) 1. PE: * change to Xarelto from Lovenox * treat for 6 months 2. Renal mass: * noted on CTA chest * pt had renl US on 02/04/18 at [place] that showed a cyst. no further work up at this time 3. Depression: * pt still upset about 's passing on 01/12 * however, still harboring grief and regret about being blamed by her mother as a child * I recommended SSRI and made patient aware that she will not note anything for weeks, and dose may need to be increased * Pt noting difficulties with memory. Depression can appear like Dementia * If no change to memory difficulties after 2-3 months of SSRI, then follow up with geriatrics * start Zoloft 50 4. Cervical radiculopathy * reviewed [facility] * No surgical notes, but there were some labs ordered at [facility] by Dr. Juan Daniel Garcia (neurosurgery) * will request records from office in regards to the need for the brace. 5. Debility: * awaiting on precert * to [facility] Code Visit Inpatient E&M: 96503 Subs Hosp L2
[2018-04-17] MEDS: Losartan Potassium 50 MG Tablet PO (08:47)
[2018-04-17] MEDS: HYDROCHLOROTHIAZIDE 12.5 MG CAPSULE PO (08:47)
[2018-04-17] MEDS: Sertraline 50 MG Tablet PO (08:47)
[2018-04-17] MEDS: Glucerna Shake 120 ML LIQUID PO ×4 (08:49→22:50)
[2018-04-17 11:31] LABS: Bedside Glucose 212 mg/dL (70-110)
[2018-04-17] MEDS: Insulin Lispro 100 UNIT/ML INSULN.PEN SQ (13:05)
[2018-04-17 16:26] LABS: Bedside Glucose 146 mg/dL (70-110)
--- NOTE | 2018-04-17 17:22 | PCA ---
Received TC from pt's [id number], Liseth Noble. Liseth stated she had called [facility] to receive update on pt, but pt has not been discharged yet to [facility]. Liseth inquired on why pt was still at this facility. Informed Liseth that according to SW note on 04/15 that we are still waiting on pt insurance approval and since it being the weekend, we normally do not get approval for pt's to go to SNF's due to insurances being closed. Liseth stated understanding and also inquired on when pt might obtain approval. This hand rug braider stated that possibly tomorrow, or Wednesday. Liseth thanked this hand rug braider, transferred call into pt room.
[2018-04-17] MEDS: Acetaminophen 500 MG Tablet 1000 MG PO (22:48)
[2018-04-17] MEDS: Atorvastatin Calcium 40 MG Tablet PO (22:49)
[2018-04-17] MEDS: 0.9% NaCl Peripheral Flush Adult/Peds IV (23:10)
[2018-04-18 00:06] LABS: Bedside Glucose 148 mg/dL (70-110)
[2018-04-18 06:50] VITALS: BP 131/68; PULSE 61; RESP 18; TEMP 36.5; O2SAT 95
[2018-04-18] MEDS: Acetaminophen 500 MG Tablet 1000 MG PO ×3 (06:53→20:47)
[2018-04-18] MEDS: Levothyroxine 112 MCG Tablet PO (06:53)
[2018-04-18] MEDS: oxyCODONE 5 MG Tablet PO (06:54)
[2018-04-18 07:16] LABS: Bedside Glucose 100 mg/dL (70-110)
[2018-04-18 08:30] VITALS: BP 134/56; PULSE 65; RESP 18; TEMP 36.4; O2SAT 100
[2018-04-18] MEDS: Glucerna Shake 120 ML LIQUID PO ×4 (08:35→20:47)
[2018-04-18] MEDS: Gabapentin 300 MG Capsule PO ×3 (08:36→17:59)
[2018-04-18] MEDS: Insulin Lispro 100 UNIT/ML INSULN.PEN 12 UNIT SQ ×2 (08:36→18:00)
[2018-04-18] MEDS: Aspirin E.C. 81 MG Tablet PO (08:36)
[2018-04-18 08:37] VITALS: PULSE 65
[2018-04-18] MEDS: HYDROCHLOROTHIAZIDE 12.5 MG CAPSULE PO (08:37)
[2018-04-18] MEDS: Metoprolol Tartrate 25 MG Tablet PO ×2 (08:37→20:48)
[2018-04-18] MEDS: Losartan Potassium 50 MG Tablet PO (08:37)
[2018-04-18] MEDS: Rivaroxaban 15 MG Tablet PO ×2 (08:38→17:59)
[2018-04-18] MEDS: Sertraline 50 MG Tablet PO (08:38)
[2018-04-18] MEDS: Menthol/Lanolin/Calamine/Znox 113 GM Tube 1 APPLIC TOPICAL ×2 (08:38→20:46)
--- NOTE | 2018-04-18 08:47 | CASEMGMT ---
Social Work Note NARCISA faxed updated clinicals to Halina at [facility]. NARCISA placed a call to Halina and left her a message informing her of updated clinicals and to let this worker know when pre-cert is obtained. Plan: [facility] pending pre-cert Kaykay Manrique WINDOW INSTALLATION SUBCONTRACTOR, MAINTENANCE MGR
--- NOTE | 2018-04-18 11:14 | CASEMGMT ---
Addendum entered by Kaykay Manrique 04/18/18 15:56: NARCISA received call from Halina at [facility] stating that she hasn't heard from pt's insurance at this time. Halina states that pt's insurance [employer] had reported to Halina that they weren't pt's primary insurance but Halina states that [employer] is pt's primary insurance. Halina states that if she receives pre-cert after this worker has left for the day she will call [facility] floor. Original Note: Social Work Note SW in to update pt. SW informed pt that pt's son had requested that pt return to [facility] for short term rehabilitation. Pt states understanding. SW informed pt that this worker is waiting for pre-cert authorization from pt's insurance and once pre-cert is obtained pt can discharge back to [facility]. Pt states understanding. Pt denied additional needs or concerns at this time. Plan: [facility] pending pre-cert Kaykay Manrique CHILD PSYCHOLOGIST, JUNIOR PHP DEVELOPER
[2018-04-18 12:15] LABS: Bedside Glucose 71 mg/dL (70-110)
--- NOTE | 2018-04-18 13:21 | PN_ITS ---
<Kwbaena Perea - Last Filed: 04/18/18 13:32> Subjective: Right shoulder pain with some finger paraesthesias continues. Pt cannot remember who did the surgery. She has no SOB. NO CP. No dizziness, LH. - Physical Exam General: Alert, Oriented x3, Cooperative HEENT: Atraumatic, PERRLA, EOMI, Normocephalic Neck: Supple, No JVD, Negative Carotid Bruits Lungs: Clear to auscultation, Normal air movement Cardiovascular: Regular rate, No murmurs Abdomen: Bowel Sounds Present, Soft, Non Tender Extremities: No edema, Capillary Refill Less than 3 Seconds, Tenderness, - - RUE : PMS intact Skin: No rashes, No breakdown Musculoskeletal: No Tenderness to Palpation of Joints or Extremities Neurological: Cranial nerves II-XII grossly intact Psych/Mental Status: Normal Affect, Appropriate, Alert and oriented to time, place, person, mood and affect Vital Signs Temp Pulse Resp BP Pulse Ox 97.5 F L 65 18 134/56 H 100 04/18/18 08:30 04/18/18 08:37 04/18/18 08:30 04/18/18 08:30 04/18/18 08:30 Oxygen Flow Rate (L/min) 2 Oxygen Delivery Method Room Air Weight: 198 lb 10.184 oz Body Mass Index (BMI) 34.0 Intake and Output for Last 24 Hours 04/16/18 04/17/18 04/18/18 23:59 23:59 23:59 Intake Total 720 / 720 920 / 920 755 / 755 Output Total 1600 / 1600 400 / 400 Balance 720 / 720 -680 / -680 355 / 355 POC Glucose 04/18/18 04/18/18 04/17/18 11:59 06:52 22:44 POC Glucose 71 100 148 H 04/17/18 16:20 POC Glucose 146 H Medical Necessity - Tobacco Use Smoking Status: Never smoker Assessment/Plan All Active Problems (Last Updated 04/13/18 @ 19:54 by Blas Angeles MD) Vertigo, peripheral (Resolved) Chest pain, unspecified (Acute) 1. PE - small peripheral, started on xarelto this admission 2. Renal mass on CTA, prior Renal US showed cyst. 3. Cervical radiculopathy - minimal improvement. Postsurgical changes on MRI C spine. She needs follow up with her neurosurgeon, she cannot remember who it was. Continue gabapentin 4. Suspect dementia - very forgetful 5. Depression - started on SSRI this admission. 6. HTN - stable 7. CAD - on asa/statin, losartan, lopressor 8. Debility - needs placed DVT ppx - xarelto DC planning: precert pending This patient was seen by Kwabena Perea PA-C under the supervision of Dr. Rodriguez <Anant Rodriguez E - Last Filed: 04/18/18 15:30> - Physical Exam Vital Signs Temp Pulse Resp BP Pulse Ox 97.7 F L 65 14 119/42 L 99 04/18/18 14:30 04/18/18 14:30 04/18/18 14:30 04/18/18 14:30 04/18/18 14:30 Oxygen Flow Rate (L/min) 2 Oxygen Delivery Method Room Air Weight: 198 lb 10.184 oz Body Mass Index (BMI) 34.0 Intake and Output for Last 24 Hours 04/16/18 04/17/18 04/18/18 23:59 23:59 23:59 Intake Total 720 / 720 920 / 920 755 / 755 Output Total 1600 / 1600 400 / 400 Balance 720 / 720 -680 / -680 355 / 355 POC Glucose 04/18/18 04/18/18 04/18/18 14:28 11:59 06:52 POC Glucose 211 H 71 100 04/17/18 04/17/18 22:44 16:20 POC Glucose 148 H 146 H Assessment/Plan Hospitalist note: I am seeing this patient in conjunction with Kwabena Perea. I independently seen and examined the patient. Progress note above, laboratory data and imaging studies reviewed and I agree with above treatment plan. She continued to complain of right shoulder pain. Denied chest pain or shortness of breath. Denied cough or sputum production. Her vital signs are stable. - Physical Exam General: Alert, Oriented x3, Cooperative, No apparent distress. HEENT: Atraumatic, PERRLA, EOMI. Neck: Supple, No JVD, Negative Carotid Bruits, Trachea Midline, Thyroid Normal. Lungs: Clear to auscultation, Normal air movement, No rhonchi, No wheeze, No rales. Cardiovascular: Regular rate, Regular Rhythm, Normal S1, Normal S2, PMI Normal. Abdomen: Bowel Sounds Present, Soft, Non Tender, Non-Distended, No Hepato- splenomegaly. Extremities: No clubbing, No cyanosis, No edema Skin: No rashes, No breakdown Neurological: Neuro grossly intact Vital Signs are stable. Assessment and plan: #1 multiple small bilateral peripheral pulmonary emboli: She is on Xarelto. Vital signs are stable, pulse ox is maintained on room air. #2 cervical radiculopathy: She had surgery in the past. MRI cervical spine reviewed. She is on OxyIR as needed for pain. Recommend follow-up with neurosurgeon as outpatient. #3 other chronic medical problems: Stable, continue current medications as above Code Visit Inpatient E&M: 11777 Subs Hosp L2
[2018-04-18 14:30] VITALS: BP 119/42; PULSE 65; RESP 14; TEMP 36.5; O2SAT 99
[2018-04-18 14:56] LABS: Bedside Glucose 211 mg/dL (70-110)
--- NOTE | 2018-04-18 16:06 | CASEMGMT ---
Social Work Note NARCISA placed a call to pt's son Corey and updated him that this worker is awaiting for pre-cert from pt's insurance before pt can return to [facility]. NARCISA informed Corey that once pre-cert is obtained [facility] will call Corey to update him of transportation time and that pt is being discharged. Corey states understanding. NARCISA completed green sheet and transportation form and tubed it to Halina - corporate legal secretary on [employer]. NARCISA placed a call to Halina and informed her that this worker is leaving for the day soon and if she hears from [facility] that pre-cert has been obtained pt can discharge to [facility] tonight. Halina states understanding. Plan: [facility] pending pre-cert Kaykay Manrique DEMOLITION EXPERT, MANAGER PROVIDER RELATIONS
[2018-04-18 17:20] LABS: Bedside Glucose 194 mg/dL (70-110)
[2018-04-18] MEDS: Insulin Lispro 100 UNIT/ML INSULN.PEN SQ (17:59)
[2018-04-18 20:30] VITALS: BP 152/56; PULSE 70; RESP 22; TEMP 37; O2SAT 99
[2018-04-18] MEDS: Atorvastatin Calcium 40 MG Tablet PO (20:47)
[2018-04-18 20:48] VITALS: PULSE 68
[2018-04-18 22:16] LABS: Bedside Glucose 98 mg/dL (70-110)
[2018-04-19 03:39] VITALS: BP 137/48; PULSE 64; RESP 18; TEMP 36.8; O2SAT 100
[2018-04-19] MEDS: oxyCODONE 5 MG Tablet PO (03:44)
[2018-04-19] MEDS: Acetaminophen 500 MG Tablet 1000 MG PO ×2 (06:11→14:44)
[2018-04-19] MEDS: Levothyroxine 112 MCG Tablet PO (06:11)
[2018-04-19 06:36] LABS: Bedside Glucose 163 mg/dL (70-110)
[2018-04-19] MEDS: Insulin Lispro 100 UNIT/ML INSULN.PEN 12 UNIT SQ ×2 (08:13→12:07)
[2018-04-19] MEDS: Insulin Lispro 100 UNIT/ML INSULN.PEN SQ ×2 (08:14→12:06)
[2018-04-19] MEDS: Aspirin E.C. 81 MG Tablet PO (08:15)
[2018-04-19] MEDS: Rivaroxaban 15 MG Tablet PO (08:15)
[2018-04-19] MEDS: Gabapentin 300 MG Capsule PO ×2 (08:15→12:08)
--- NOTE | 2018-04-19 09:25 | CASEMGMT ---
Social Work Note NARCISA received call from Halina at [facility] stating that pre-cert has been obtained and pt is able to discharge today. NARCISA updated Dr. Fofana of this. NARCISA will fax discharge paperwork when completed. Plan: Pt to discharge to [facility] today Kaykay Manrique POLICE SURGEON, MANAGER DATA CENTER
--- NOTE | 2018-04-19 09:43 | TREXTCAR_ITS ---
- Diet 04/15/18 19:06 ADA [Diet: Calorie Controlled] Is pt able to select menu?: No How many daily calories?: 1800 calorie - Wound(s) right buttocks Wound Type: Pressure Injury neck-midline Wound Type: Surgical Incision RT HEEL Wound Type: Pressure Injury - Suggestions for Active Care Change Position every (hours): 3 Hours to sit in a chair: 2 Times a day to sit in chair: 3 - Allergies/Procedures Done in Hospital Allergies/Adverse Reactions: Allergies orange juice Allergy (Verified 04/13/18 12:50) Hives Penicillins Allergy (Verified 04/13/18 12:50) Anaphylaxis strawberry Allergy (Verified 04/13/18 12:50) Hives acetaminophen Adverse Reaction (Verified 04/13/18 15:50) Vomiting - Type of Care/Length of Stay Estimated LOS: Convalescent Care Less Than 30 days Type of Care Needed: Skilled Rehab Potential: Fair Prognosis: Fair - Additional Orders/Day of Discharge Additional Orders: patient received 1 week of Xarelto 15 mg p.o. twice daily. She will continue Xarelto 15 mg p.o. twice daily for 2 more weeks and then she will start Xarelto 20 mg p.o. daily to complete at least 3 months of treatment. Duration of treatment should be decided by PCP. H&P will serve as current which was dated: 04/13/18 Day of Discharge: 04/19/18 - Dietary and Speech Recommendations Dietitian Recommendations/Changes: Recommend change to cardiac, calorie- controlled 1600 diet. - Follow Up Care Primary Care Physician: Angus Chapa, JESU-C [Primary Care Provider] - Please follow up with your Primary Care Physician in: 1-2 weeks.
[2018-04-19 10:41] VITALS: BP 139/81; PULSE 75; RESP 18; TEMP 36.6; O2SAT 96
[2018-04-19 10:43] VITALS: BP 139/81; PULSE 75
[2018-04-19] MEDS: Losartan Potassium 50 MG Tablet PO (10:43)
[2018-04-19] MEDS: Menthol/Lanolin/Calamine/Znox 113 GM Tube 1 APPLIC TOPICAL (10:43)
[2018-04-19] MEDS: Metoprolol Tartrate 25 MG Tablet PO (10:43)
[2018-04-19] MEDS: HYDROCHLOROTHIAZIDE 12.5 MG CAPSULE PO (10:44)
[2018-04-19] MEDS: Sertraline 50 MG Tablet PO (10:44)
[2018-04-19] MEDS: Glucerna Shake 120 ML LIQUID PO ×2 (10:45→14:44)
[2018-04-19 12:30] LABS: Bedside Glucose 213 mg/dL (70-110)
--- NOTE | 2018-04-19 13:20 | CASEMGMT ---
Social Work Note NARCISA faxed completed discharge paperwork to Halina at [facility] including transfer to extended care facility, signed medication list, and any scripts. Originals in SNF folder and copy on pt's chart. NARCISA set up transportation through [facility] via cot for 3:30pm. Transportation form on SNF folder and copy on pt's chart. NARCISA updated audio visual secretary LAYO Meade and placed a call to Halina at [facility] of transportation time. NARCISA placed a call to pt's son Corey, HCPDENY, and updated him that pt is being discharged today and of transportation time. Corey states understanding. NARCISA updated pt of transportation time. Pt denied additional needs or concerns at this time. HENS is not needed as pt came from skilled side at [facility] and is returning to skilled side at [facility] Plan: Pt to discharge to [facility] today under skilled for rehabilitation at 3:30pm with [facility] transporting pt via cot Kaykay Manriuqe MSW, HOUSING MANAGEMENT OFFICER
--- NOTE | 2018-04-19 13:59 | DS.PCM_ITS ---
Discharge Date and Diagnosis Date of Admission: 04/13/18 Date of Discharge: 04/19/18 - Primary Discharge Diagnosis #1 acute multiple small bilateral peripheral pulmonary emboli. #2 cervical radiculopathy. #3 debility/functional decline. - Secondary Discharge Diagnosis Chronic Problems (Last Updated 04/13/18 @ 19:54 by Blas Angeles MD) Type 2 diabetes mellitus (Chronic) HTN (hypertension) (Chronic) CAD (coronary artery disease) (Chronic) Hx of CABG (Chronic) Carpal tunnel syndrome on right (Chronic) Cervical radicular pain (Chronic) Hospital Course and Treatment Imaging Results: Clinical Impression(s) from Imaging Studies Chest X-Ray 04/13/18 12:55 IMPRESSION: No acute abnormality is seen. Electronically Signed: Jens Thurman MD at 13:13 EDT Tel [phone], Service support , Chest CTA 04/13/18 13:51 IMPRESSION: Several small peripheral intraluminal filling defects involving pulmonary branches as described. Possible solid left renal mass. 7.8 mm x 4.9 mm noncalcified nodule in the right upper lobe adjacent to the right minor fissure. Enlarged right lobe of the thyroid. Electronically Signed: Jens Thumran MD at 14:29 EDT Tel [phone], Service support , Cervical Spine MRI 04/13/18 16:29 IMPRESSION: 1. Significant artifact is present at C4, C5 and C6 regions related to recent surgery. 2. Apparent abnormal signal within the cervical spinal cord at C4 and C5 possibly related to cord impingement and/or myelomalacia. Artifactual signal within the cord cannot be excluded. Electronically Signed: Adia Johnson MD at 3:42 EDT , Service support , Operations: None Procedures: None Summary of Care Provided: Patient seen and examined on the day of discharge and appeared to be stable to be discharged to [facility] facility. She continued to complain of neck pain and right upper extremity pain and tingling and this is chronic, no change. Her vital signs are stable. - Physical Exam General: Alert, Oriented x3, Cooperative, No apparent distress. HEENT: Atraumatic, PERRLA, EOMI. Neck: Supple, No JVD, Negative Carotid Bruits, Trachea Midline, Thyroid Normal. Lungs: Clear to auscultation, Normal air movement, No rhonchi, No wheeze, No rales. Cardiovascular: Regular rate, Regular Rhythm, Normal S1, Normal S2, PMI Normal. Abdomen: Bowel Sounds Present, Soft, Non Tender, Non-Distended, No Hepato- splenomegaly. Extremities: No clubbing, No cyanosis, No edema Skin: No rashes, No breakdown Neurological: Neuro grossly intact Vital Signs are stable. Hospital course: The patient is a 78 year old F admitted because of worsening right upper extremity/right shoulder pain. Patient underwent neck surgery recently with anterior decompression and fusion for severe cervical radiculopathy pain and spinal stenosis. MRI cervical spine performed and revealed significant artifact is present at C4, C5 and C6 related to recent surgery and also reviewed abnormal signal within the cervical spine cord at C4-C5 which could be due to cord impingement or myelomalacia. Patient was found to have elevated d- dimer for which CTA chest performed and revealed multiple acute small peripheral pulmonary emboli. Patient was treated with Xarelto for acute pulmonary emboli. She was treated with OxyIR for pain. Her routine blood work was unremarkable and at his baseline. With pain medication, her neck pain, right shoulder and right extremity pain slightly improved but patient continued to complain of that pain. Her vital signs remained stable and respiratory status remains stable as well. PT OT evaluate the patient and recommended placement to [facility] facility. Patient discharged to [facility] facility in a stable medical condition, discharged on Xarelto for acute small peripheral bilateral PEs, discharged on OxyIR as needed for pain as well as Neurontin and Flexeril, recommended follow-up with her neurosurgeon as outpatient and follow-up with PCP in 1-2 weeks. Home Medications: Medications to take at Discharge Aspirin E.C. [Ecotrin] 81 mg PO DAILY 03/17/18 Atorvastatin Calcium 40 mg PO QHS 03/17/18 Ergocalciferol [Vitamin D] 50,000 unit PO GARDUNO 03/17/18 Ferrous Sulfate [Iron] 325 mg PO DAILY 03/17/18 Levothyroxine Sodium [Synthroid] 112 mcg PO DAILY 03/17/18 Losartan Potassium [Cozaar] 50 mg PO DAILY 03/17/18 Bisacodyl [Dulcolax] 10 mg RECTAL DAILY PRN PRN 04/13/18 Cyclobenzaprine [Flexeril] 10 mg PO Q6H PRN PRN 04/13/18 Cyclobenzaprine [Flexeril] 10 mg PO QHS 04/13/18 Dextrose [Glucose Gel] 1 packet PO X1 PRN 04/13/18 Gabapentin [Neurontin] 200 mg PO BID 04/13/18 Glucagon 1 mg IM X1 PRN 04/13/18 Hydrochlorothiazide [Hctz] 12.5 mg PO DAILY 04/13/18 Insulin Glargine,Hum.rec.anlog [Basaglar Kwikpen U-100] 30 unit SQ QHS 04/13/18 Lactobacillus Rhamnosus GG [Culturelle] 1 each PO DAILY 04/13/18 Mag Hydrox/Al Hydrox/Simeth [Antacid Suspension] 30 ml PO Q4H PRN 04/13/18 Magnesium Hydroxide [Milk Of Magnesia] 30 ml PO DAILY PRN PRN 04/13/18 Meclizine HCl [Antivert] 25 mg PO Q8H PRN PRN 04/13/18 Metoprolol Tartrate [Lopressor (beta aleida)] 25 mg PO BID 04/13/18 Na Phos,M-B/Na Phos,Di-Ba [Fleet Enema] 120 ml RECTAL X1 PRN 04/13/18 Ondansetron HCl [Zofran] 4 mg PO Q6H PRN PRN 04/13/18 Oxycodone [Oxyir] 5 mg PO Q4H PRN PRN #20 tab 04/19/18 Rivaroxaban [Xarelto] 15 mg PO BIDCM #30 tab 04/19/18 Rivaroxaban [Xarelto] 20 mg PO DAILY #60 tab 04/19/18 Following Prescrptions Were Given to Patient: Oxycodone [Oxyir] 5 mg PO Q4H PRN PRN #20 tab PRN Reason: Pain Rivaroxaban [Xarelto] 20 mg PO DAILY #60 tab Rivaroxaban [Xarelto] 15 mg PO BIDCM #30 tab Primary Care Physician: Angus Chapa, INSPECTOR FUEL HOSE-C [Primary Care Provider] - Please follow up with your Primary Care Physician in: 1-2 weeks. Disposition: [facility] facility Minutes spent on discharge:: 32 Patient Condition:: Stable Medical Necessity - Tobacco Use Smoking Status: Never smoker Meaningful Use Info Meaningful Use Diagnoses (Choose all that apply): None applicable Code Visit Inpatient E&M: 30785 Disch Hosp
[2018-04-19 14:48] VITALS: BP 133/45; PULSE 71; RESP 18; TEMP 36.6; O2SAT 99
--- NOTE | 2018-04-19 15:28 | NURSING ---
BETZAIDA VERMA AND SPOKE WITH ZEUS NELSON GAVE REPORT TO PT
== END 2018-04-19 15:38 | disposition skilled nursing facility (03) ==
LOC: ED 15:03 → MS3 15:30
PROVIDERS: Internal Medicine; Admitting Provider Internal Medicine; Emergency Provider Emergency Medicine; Family Provider Nurse Practitioner Family; PCP Nurse Practitioner Family; Visit Provider Hospitalist
DX: I26.99 Other pulmonary embolism without acute cor pulmonale (principal); R07.89 Other chest pain; M79.601 Pain in right arm; I25.10 Atherosclerotic heart disease of native coronary artery without angina pectoris; E11.9 Type 2 diabetes mellitus without complications; I10 Essential (primary) hypertension; E03.9 Hypothyroidism, unspecified; Z79.899 Other long term (current) drug therapy; Z79.82 Long term (current) use of aspirin; Z79.4 Long term (current) use of insulin; Z95.1 Presence of aortocoronary bypass graft; M50.10 Cervical disc disorder with radiculopathy, unspecified cervical region; F03.90 Unspecified dementia, unspecified severity, without behavioral disturbance, psychotic disturbance, mood disturbance, and anxiety; F32.9 Major depressive disorder, single episode, unspecified; N28.1 Cyst of kidney, acquired
CPT/HCPCS: 36415; 71045; 71275; 72141; 80048; 82962; 84484; 85025; 85379; 85652; 86140; 93005; 96372; 96374; 96375; 96376; 97110; 97116; 97162; 97165; 97530; 97535; 97802; 99218; 99285; J7030; Q9967; A4216; G0378; J2405

== ENCOUNTER 2018-05-24 15:03 | Emergency (ER) | payer MEDICARE, SELFPAY ==
[2018-05-24 15:04] VITALS: BP 167/62; PULSE 66; RESP 16; TEMP 37.1; O2SAT 100; BMI 35.3
--- NOTE | 2018-05-24 15:18 | CT_ITS ---
STUDY: CT BRAIN WITHOUT CONTRAST REASON FOR EXAM: Female, 78 years old. History of fall. RADIATION DOSAGE (If Supplied By Facility): CTDIvol = ( 44.99 ) mGy, DLP = ( 745.49 ) mGycm TECHNIQUE: Transaxial CT imaging of the brain was performed without administration of intravenous contrast material. Individualized dose optimization techniques were used for this CT. COMPARISON: Comparison is made with prior study dated March 17, 2018. FINDINGS: Normal soft tissue structures. There is hyperostosis frontalis internus. There is mild cerebral atrophy with widening of the extra-axial spaces and ventricular dilatation. Normal white matter tracts of the cerebral hemispheres. Normal basal ganglia and thalami. Normal brainstem. Normal cerebellum. There is no intracranial hemorrhage. There are no findings of an acute ischemic infarction. Normal visualized paranasal sinuses. CT/Brain/Head without Contrast IMPRESSION: Chronic involutional changes of the brain. Electronically Signed: Jens Thurman MD at 16:01 EDT Tel [phone], Service support ,
--- NOTE | 2018-05-24 15:20 | RAD_ITS ---
STUDY: X-RAY - RIGHT KNEE REASON FOR EXAM: Female, 78 years old. Fall, right knee pain TECHNIQUE: 3 view(s) of the knee. COMPARISON: None. FINDINGS: Normal visualized distal femur. Normal visualized proximal tibia and fibula. Normal proximal tibiofibular articulation. There is mild degenerative arthrosis of the medial femorotibial compartment. Normal lateral femorotibial compartment. There is mild degenerative arthrosis of the patellofemoral articulation. There vascular francesca along the medial aspect of the knee. The soft tissue structures are unremarkable. RAD/Knee 4 or More Views IMPRESSION: Degenerative arthrosis. Electronically Signed: Yasir Dawson MD at 16:42 EDT , Service support ,
--- NOTE | 2018-05-24 15:20 | RAD_ITS ---
STUDY: X-RAY - RIGHT RADIUS AND ULNA REASON FOR EXAM: Female, 78 years old. FALL PAIN ARM PAIN TECHNIQUE: 2 view(s) of the forearm. COMPARISON: None. FINDINGS: There is no demonstrated soft tissue swelling. Normal visualized radius. Normal visualized ulna. RAD/Forearm 2 Views IMPRESSION: Normal x-ray examination of the radius and ulna. Electronically Signed: Yasir Dawson MD at 16:45 EDT , Service support ,
--- NOTE | 2018-05-24 15:20 | RAD_ITS ---
STUDY: X-RAY - RIGHT HUMERUS REASON FOR EXAM: Female, 78 years old. FALL RIGHT ARM PAIN TECHNIQUE: 2 view(s) of the humerus. COMPARISON: None. FINDINGS: Normal visualized humerus. There is no demonstrated fracture or osseous destructive process. There is no demonstrated soft tissue abnormality. RAD/Humerus min 2 Views IMPRESSION: Normal x-ray examination of the humerus. Electronically Signed: Yasir Dawson MD at 16:42 EDT , Service support ,
--- NOTE | 2018-05-24 15:20 | CT_ITS ---
STUDY: CT CERVICAL SPINE WITHOUT CONTRAST REASON FOR EXAM: Female, 78 years old. Back pain following a fall. RADIATION DOSAGE (If Supplied By Facility): CTDIvol = ( 17.85 ) mGy, DLP = ( 369.16 ) mGycm TECHNIQUE: High resolution transaxial imaging was performed without contrast material. Sagittal and coronal images were reconstructed. Individualized dose optimization techniques were used for this CT. COMPARISON: Comparison is made with prior study dated March 19, 2018. FINDINGS: Normal craniovertebral junction. There are degenerative changes of the anterior atlantoaxial articulation. Normal odontoid process. Normal cervical lordosis. Normal vertebral bodies and posterior osseous elements. C2-3: Normal endplates. Normal disc height and morphology. Normal central canal and intervertebral neuroforamina. C3-4: Normal endplates. Normal disc height and morphology. Normal central canal and intervertebral neuroforamina. C4-5: Since prior study, the patient underwent anterior fusion at the C4-C5 level with the prosthetic disc placement. No significant stenosis seen at this time. C5-6: Moderate degree of disc space narrowing. Uncovertebral arthrosis and posterior spondylosis. There is mild degree of central spinal stenosis as well as a moderate degree of bilateral neural foraminal stenosis. C6-7: Moderate degree of disc space narrowing. Spondylosis. Bilateral neural foraminal stenosis slightly worse on the right side. Carotid calcifications. Diffusely enlarged thyroid gland suggestive of a thyroid goiter. This is unchanged. CT/Spine Cervical without Contras IMPRESSION: Multilevel degenerative changes, as described above. Status post anterior fusion at the C4-C5 level. Electronically Signed: Jens Thurman MD at 16:04 EDT Tel [phone], Service support ,
--- NOTE | 2018-05-24 15:23 | ED.VISSUMM ---
- ER Visit Summary Date of Service: 05/24/18 Chief Complaint: Fall History of Present Illness: The patient is a 78 F who lost her balance getting off the commode and fell forward, landing on her right side. She denies loss of consciousness. She is complaining of pain to her entire right arm and her back just behind her right shoulder. She also has mild pain to the right knee. Patient is currently on Xarelto secondary to recent diagnosis of pulmonary emboli. Physical Examination: Blood pressure is 167/62, other vitals normal. Patient is lying supine in the bed. She is in no acute distress. She is alert and answers questions appropriately. Head neck examination reveals no obvious external sign of trauma. No reproducible neck pain. Heart is regular rate and rhythm. Lung sounds are clear. Chest wall is nontender. Abdomen is soft and nontender. Pelvis is stable. Upper extremity examination reveals mild diffuse tenderness throughout the right upper extremity. There is no obvious sign of deformity or dislocation. She is a strong hand grasp. Strong pulses are noted. Lower extremity examination reveals mild diffuse tenderness around the right knee. No obvious deformity noted. Strong distal pulses noted. Test Results: Right knee x-rays reveal degenerative arthrosis. Right humeral x-rays normal. Right forearm normal. Chest x-ray shows no acute findings. CT head shows chronic involutional changes. CT C-spine shows multilevel degenerative changes with postop changes at C4-C5. Emergency Department Course and Treatment: Patient was given a dose of fentanyl and Zofran. On repeat evaluation she did feel improved. I was talking to her about discharge she stated that she now remembered that she felt very dizzy like she might pass out before she fell. She states this is been ongoing for quite some time it seemed worse today. At that time an EKG is obtained that shows sinus rhythm at 61 bpm with a left bundle branch block. CBC was a white count 12.1 hemoglobin 10.7. Chemistry studies reveal BUN 20 creatinine 1.28. Her glucose is 203. Urinalysis is normal. Patient is able to get up and ambulate down the norris and back. She will be given oxycodone for home as she did well with this after her recent discharge. Treatment Plan: [] Disposition: Discharge Impression: 1. Mechanical fall 2. Right upper extremity contusion This note was generated with ShutterCalation software. It may contain incorrect words, spelling, and punctuation that were not noted in review of the chart prior to signing ED Disposition - Plan for ED Patient: Chief Complaint: Fall Referrals: Angus Chapa, CLOTH BALE HEADER-C [Primary Care Provider] -
--- NOTE | 2018-05-24 15:45 | RAD_ITS ---
STUDY: X-RAY CHEST REASON FOR EXAM: Female, 78 years old. FALL PAIN TECHNIQUE: Frontal and lateral views of the chest. COMPARISON: 8 FINDINGS: Chronic appearing increased interstitial lung markings. There are multiple median sternotomy wires. There is no demonstrated pleural abnormality. Normal heart size. Normal mediastinum and holli. Normal visualized pulmonary arteries. There is atherosclerotic calcification of the aortic arch with tortuosity. There are diffuse degenerative changes of the visualized thoracic spine. There is degenerative osteoarthritis of the bilateral shoulders. There is no demonstrated abnormality of the visualized soft tissue structures of the upper abdomen. RAD/Chest PA and Lateral IMPRESSION: There are no acute findings. Electronically Signed: Yasir Dawson MD at 16:44 EDT , Service support ,
[2018-05-24] MEDS: Ondansetron 4 MG/2 ML Vial IV (16:20)
[2018-05-24] MEDS: fentaNYL 100 MCG/2 ML Ampul 25 MCG IV (16:20)
--- NOTE | 2018-05-24 17:13 | EKG12_ITS ---
Test Reason : Blood Pressure : / mmHG Vent. Rate : 061 BPM Atrial Rate : 061 BPM P-R Int : 166 ms QRS Dur : 146 ms QT Int : 504 ms P-R-T Axes : 061 -44 102 degrees QTc Int : 507 ms Normal sinus rhythm Left axis deviation Left bundle branch block Abnormal ECG Confirmed by ALEK EL, SWATHI ([id number]), editor in chief newspaper DAMIAN MCCRACKEN ([id number]) on 05/27/2018 1:16:14 PM Referred By: VIOLET Confirmed By:SWATHI GASTON MD
[2018-05-24 18:05] VITALS: BP 169/65; PULSE 67; RESP 12; O2SAT 96
[2018-05-24] MEDS: 0.9% Normal Saline 1,000 ML 150 ML IV (18:06)
[2018-05-24 18:08] LABS: Absolute Lymphocyte Count 2.58 X10^3/ul (0.83-4.51); Absolute Neutrophil Count 8.3 X10^3/uL (2.0-7.7); Basophil# 0.03 X10^3/uL; Basophil% 0.2 % (0-1); Eosinophil# 0.44 X10^3/uL; Eosinophils% 3.6 % (0-5); Hematocrit 34.2 % (37-47); Hemoglobin 10.7 g/dl (12.0-15.0); Lymphocyte # 2.58 X10^3/ul (4.0); Lymphocyte % 21.3 % (19-41); Mean Corp Hgb Conc 31.3 g/gl (32-36); Mean Corpuscular Hgb 29.4 pg (27.0-32.0); Mean Platelet Vol. 9.8 fl (6.2-12.0); Monocyte# 0.82 X10^3/uL; Monocyte% 6.8 % (0-10); Neutrophil # 8.25 X10^3/uL (2.7-7.7); Neutrophil % 67.9 % (47-70); POSITIVE COUNT NO; POSITIVE DIFFERENTIAL NO; POSITIVE MORPHOLOGY NO; Platelet Count 275 K/mm3 (150-450); RBC Distribution Width CV 14.9 % (11.6-14.6); Red Blood Count 3.64 M/mm3 (4.2-5.4); White Blood Count 12.1 K/mm3 (4.4-11.0)
[2018-05-24 18:19] LABS: Bacteria 0 SEEN /hpf (None Seen); Mucous, Urine 0 SEEN /hpf (<or=2+); Red Blood Cells-Urine 0 SEEN /hpf (0-5); White Blood Cells 0 SEEN /hpf (0-5)
[2018-05-24 18:23] LABS: Anion Gap 8 (5-15); BUN 28 mg/dL (7-18); BUN/Creat Ratio 21.9 RATIO (10-20); Calcium,Total 8.9 mg/dL (8.5-10.1); Chloride 106 mmol/L (98-107); Creatinine, Serum 1.28 mg/dL (0.55-1.02); EST Glomerular Filtration Rate 43 mL/min (>60); Est Glom Filt Rate - Afr Amer 52 mL/min (>60); Estimated Creatinine Clearance 31.78 ml/min; Glucose 203 mg/dL (74-106); Potassium 5.3 mmol/L (3.5-5.1); Sodium Level 139 mmol/L (136-145)
[2018-05-24 18:23] LABS: Color, Urine Yellow (Yellow); Glucose, Dipstick Normal (Normal); Ketone-Dipstick Negative (Negative); Leukocyte Esterase-Dipstick 25 /ul (Negative); Nitrite-Dipstick Negative (Negative); Occult Blood-Urine Negative /ul (Negative); Protein-Dipstick Negative (Negative); Urine Bilirubin Dipstick Negative (Negative); Urine Clarity Clear (Clear); Urine Urobilinogen Normal (Normal)
[2018-05-24 18:40] LABS: Squamous Epithelial Cells - UA 0-5 SEEN /hpf (5-10)
--- NOTE | 2018-05-24 20:00 | DCINST.ED_ITS ---
ED Disposition - Plan for ED Patient: Disposition: Home or Assisted Living Chief Complaint: Fall Instructions: ED Mechanical Fall, ED Contusion Upper Ext Prescriptions: Oxycodone [Oxyir] 5 mg PO Q6H PRN PRN 3 Days #14 tablet PRN Reason: Pain Referrals: Angus Chapa, BALLISTICS TEACHER-C [Primary Care Provider] -
[2018-05-24 20:02] VITALS: BP 149/45; PULSE 57; RESP 18; O2SAT 95
--- NOTE | 2018-05-24 20:32 | ED.RN ---
pt walked with senior business consultant w walker down the hallway. pt tolerate it well
== END 2018-05-24 20:32 | disposition home or self-care (01) ==
PROVIDERS: Emergency Provider Emergency Medicine; Family Provider Nurse Practitioner Family; PCP Nurse Practitioner Family
DX: S40.021A Contusion of right upper arm, initial encounter (principal); I25.10 Atherosclerotic heart disease of native coronary artery without angina pectoris; E11.9 Type 2 diabetes mellitus without complications; I10 Essential (primary) hypertension; Z86.711 Personal history of pulmonary embolism; Z79.4 Long term (current) use of insulin; Z79.82 Long term (current) use of aspirin; Z79.899 Other long term (current) drug therapy; W18.30XA Fall on same level, unspecified, initial encounter; Y93.89 Activity, other specified; Y92.002 Bathroom of unspecified non-institutional (private) residence as the place of occurrence of the external cause; Y99.8 Other external cause status
CPT/HCPCS: 36415; 70450; 71046; 72125; 73060; 73090; 73564; 80048; 81001; 85025; 93005; 96361; 96374; 96375; 99285; J7030; A4216; J2405

== ENCOUNTER 2018-07-07 13:05 | Observation (INO) | payer MEDICARE, SELFPAY ==
[2018-07-07] VITALS (14 sets, daily range): BP systolic 122–169; BP diastolic 43–103; PULSE 57–69; RESP 16–24; TEMP 36.5–37.1; O2SAT 94–100; BMI 32.5
--- NOTE | 2018-07-07 13:25 | EKG12_ITS ---
Test Reason : Blood Pressure : / mmHG Vent. Rate : 063 BPM Atrial Rate : 063 BPM P-R Int : 188 ms QRS Dur : 150 ms QT Int : 500 ms P-R-T Axes : 061 -43 125 degrees QTc Int : 511 ms Sinus rhythm with Premature atrial complexes Left axis deviation Left bundle branch block Abnormal ECG Confirmed by RANJANA MARQUEZ ([id number]), fashion editor DAMIAN MCCRACKEN ([id number]) on 07/12/2018 8:57:16 AM Referred By: PANCHO Confirmed By:RANJANA MARQUEZ
--- NOTE | 2018-07-07 13:27 | RAD_ITS ---
STUDY: X-RAY CHEST REASON FOR EXAM: Female, 78 years old. Chest pain. Bilateral arm pain. TECHNIQUE: Single AP portable view of the chest. COMPARISON: Comparison is made with prior study May 24, 2018. FINDINGS: EKG electrodes are seen. The lungs are clear and expanded. There is no demonstrated pleural abnormality. Sternal cerclage wires and vascular clips are present from a prior sternotomy and coronary artery bypass graft procedure (CABG). Normal mediastinum and holli. Normal visualized pulmonary arteries. There is atherosclerotic calcification of the aortic arch with tortuosity. There are diffuse degenerative changes of the visualized thoracic spine. Normal visualized ribs, clavicles, and shoulders. There is no demonstrated abnormality of the visualized soft tissue structures of the upper abdomen. RAD/Chest 1 View (Portable) IMPRESSION: Status post CABG. No acute abnormality is seen. Electronically Signed: Jens Thurman MD at 13:54 EDT Tel [phone], Service support ,
[2018-07-07] MEDS: Aspirin 81 MG TAB.CHEW 324 MG PO (13:40)
[2018-07-07 14:01] LABS: Absolute Lymphocyte Count 2.52 X10^3/ul (0.83-4.51); Basophil# 0.04 X10^3/uL; Basophil% 0.4 % (0-1); Eosinophil# 0.32 X10^3/uL; Hematocrit 38.2 % (37-47); Hemoglobin 11.9 g/dl (12.0-15.0); Lymphocyte # 2.52 X10^3/ul (4.0); Lymphocyte % 23.8 % (19-41); Mean Corp Hgb Conc 31.2 g/gl (32-36); Mean Corpuscular Volume 92.9 fL (81-99); Mean Platelet Vol. 11.2 fl (6.2-12.0); Monocyte# 0.72 X10^3/uL; Monocyte% 6.8 % (0-10); Neutrophil # 6.98 X10^3/uL (2.7-7.7); Neutrophil % 65.9 % (47-70); POSITIVE COUNT NO; POSITIVE DIFFERENTIAL NO; POSITIVE MORPHOLOGY NO; Platelet Count 294 K/mm3 (150-450); RBC Distribution Width CV 14.4 % (11.6-14.6); RBC Distribution Width SD 48.8 fl (35.1-43.9); Red Blood Count 4.11 M/mm3 (4.2-5.4); White Blood Count 10.6 K/mm3 (4.4-11.0)
[2018-07-07 14:12] LABS: Anion Gap 9 (5-15); BUN 19 mg/dL (7-18); BUN/Creat Ratio 14.7 RATIO (10-20); Calcium,Total 9.2 mg/dL (8.5-10.1); Chloride 107 mmol/L (98-107); Creatinine, Serum 1.29 mg/dL (0.55-1.02); EST Glomerular Filtration Rate 43 mL/min (>60); Est Glom Filt Rate - Afr Amer 52 mL/min (>60); Estimated Creatinine Clearance 31.54 ml/min; Glucose 128 mg/dL (74-106); Potassium 3.7 mmol/L (3.5-5.1); Sodium Level 140 mmol/L (136-145)
--- NOTE | 2018-07-07 14:43 | CM.ED ---
Social Work Note Referral from RN stating that the pt's family is requesting to speak with SW regarding SNF placement. Face to face with pt's [id number]. According to Liseth, she states that her spouse, Corey (HCPOA), has been speaking with Muna at [facility]. States that they have her on the waiting list and they would like SW to initiate referral to SNF. Inform that they may want to consider another placement option in the event that [facility] will not have a bed at the time of discharge. Understanding expressed, and Liseth states that she will discuss with her spouse. Placed call to Muna at [facility] and update on incoming referral. PLAN: SNF pending acceptance and pre-cert. Shavon Correa, JANUSZ, FOREIGN
--- NOTE | 2018-07-07 14:44 | EKG12_ITS ---
Test Reason : Blood Pressure : / mmHG Vent. Rate : 075 BPM Atrial Rate : 441 BPM P-R Int : 000 ms QRS Dur : 136 ms QT Int : 492 ms P-R-T Axes : 000 -36 108 degrees QTc Int : 549 ms Normal sinus rhythm Left axis deviation Left bundle branch block Abnormal ECG Confirmed by RANJANA MARQUEZ ([id number]), production editor DAMIAN MCCRACKEN ([id number]) on 07/12/2018 8:58:41 AM Referred By: PANCHO Confirmed By:RANJANA MARQUEZ
--- NOTE | 2018-07-07 15:00 | ED.VISSUMM ---
- ER Visit Summary Date of Service: 07/07/18 Chief Complaint: Midsternal chest discomfort described as a dull aching pain with bilateral upper extremity pain that is severe. She reported nausea with mild shortness of breath. No diaphoresis. This occurred while playing bingo. History of Present Illness: The patient is a 78 F who presents with chest pain with radiation to both upper extremities associated with nausea and mild dyspnea. This occurred while playing bingo. She does have history of coronary disease with three-vessel bypass surgery 10 years ago at [facility]. She has history of type 2 diabetes 20+ years, hypertension for 20+ years and hypercholesterolemia for 10 years. She had recent surgery cervical spine secondary to cervical radiculopathy. She also has history of benign paroxysmal positional vertigo. She has no other complaints on review of systems. Physical Examination: Patient appears uncomfortable. Head is atraumatic normocephalic. Pupils are equal round reactive. Extraocular muscles are intact. TMs are pearly white with landmarks noted. Nares patent with no drainage. Posterior pharynx without erythema or exudate. Uvula is midline. There is no dysphonia or dysphasia. Trachea is midline. There is no stridor with auscultation of the neck. Heart is regular without murmur, gallop or rub. S1 and S2 are normal. Lungs are clear to auscultation with good movement of air bilaterally. There is no reproducible chest pain. Abdomen is soft nontender with no paraspinal megaly. Negative Avila sign. There is no CVA tenderness noted. There is edema noted of both lower extremities. There is no discoloration, asymmetry, ligament distention, palpable coarseness on suspicion deep venous system. Test Results: EKG revealed a sinus rhythm rate of 63 with a left bundle branch block. SC interval is normal. There is no acute ischemic changes noted. Portable chest x-ray reveals normal cardiac silhouette. There is no evidence of failure or effusion. Mediastinum is normal. Sternotomy wires noted. CBC reveals mild anemia with a hemoglobin 11.9. Creatinine is elevated 1.29. Her troponin is less than 0.015. Emergency Department Course and Treatment: EKG, chest x-ray and blood work was obtained to evaluate patient's chest pain to determine cardiac versus noncardiac etiology. She did receive nitroglycerin with improvement. She also received morphine. Treatment Plan: Admit observation status PCU Disposition: PCU Impression: 1. Chest pain 2. History coronary disease 3. History of hypertension 4. History of diabetes 5. History of hypercholesterolemia This note was generated with [employer] dictation software. It may contain incorrect words, spelling, and punctuation that were not noted in review of the chart prior to signing ED Disposition - Plan for ED Patient: Chief Complaint: Chest Pain Referrals: Angus Chapa, JESU-C [Primary Care Provider] -
[2018-07-07] MEDS: Ondansetron 4 MG/2 ML Vial IV (15:04)
--- NOTE | 2018-07-07 15:04 | ED.DCSUM_ITS ---
- ER Visit Summary Date of Service: 07/07/18 Chief Complaint: Midsternal chest discomfort described as a dull aching pain with bilateral upper extremity pain that is severe. She reported nausea with mild shortness of breath. No diaphoresis. This occurred while playing bingo. History of Present Illness: The patient is a 78 F who presents with chest pain with radiation to both upper extremities associated with nausea and mild dyspnea. This occurred while playing bingo. She does have history of coronary disease with three-vessel bypass surgery 10 years ago at [facility]. She has history of type 2 diabetes 20+ years, hypertension for 20+ years and hypercholesterolemia for 10 years. She had recent surgery cervical spine secondary to cervical radiculopathy. She also has history of benign paroxysmal positional vertigo. She has no other complaints on review of systems. Physical Examination: Patient appears uncomfortable. Head is atraumatic normocephalic. Pupils are equal round reactive. Extraocular muscles are intact. TMs are pearly white with landmarks noted. Nares patent with no drainage. Posterior pharynx without erythema or exudate. Uvula is midline. There is no dysphonia or dysphasia. Trachea is midline. There is no stridor with auscultation of the neck. Heart is regular without murmur, gallop or rub. S1 and S2 are normal. Lungs are clear to auscultation with good movement of air bilaterally. There is no reproducible chest pain. Abdomen is soft nontender with no paraspinal megaly. Negative Avila sign. There is no CVA tenderness noted. There is edema noted of both lower extremities. There is no discoloration, asymmetry, ligament distention, palpable coarseness on suspicion deep venous system. Test Results: EKG revealed a sinus rhythm rate of 63 with a left bundle branch block. HI interval is normal. There is no acute ischemic changes noted. Portable chest x-ray reveals normal cardiac silhouette. There is no evidence of failure or effusion. Mediastinum is normal. Sternotomy wires noted. CBC reveals mild anemia with a hemoglobin 11.9. Creatinine is elevated 1.29. Her troponin is less than 0.015. Emergency Department Course and Treatment: EKG, chest x-ray and blood work was obtained to evaluate patient's chest pain to determine cardiac versus noncardiac etiology. She did receive nitroglycerin with improvement. She also received morphine. Treatment Plan: Admit observation status PCU Disposition: PCU Impression: 1. Chest pain 2. History coronary disease 3. History of hypertension 4. History of diabetes 5. History of hypercholesterolemia This note was generated with [employer] dictation software. It may contain incorrect words, spelling, and punctuation that were not noted in review of the chart prior to signing ED Disposition - Plan for ED Patient: Chief Complaint: Chest Pain Referrals: Angus Chapa, JESU-C [Primary Care Provider] -
[2018-07-07] MEDS: Morphine 4 MG/ML Syringe IV (15:05)
--- NOTE | 2018-07-07 15:44 | HP.PCM_ITS ---
Problem List (1) Chest pain Status: Acute (2) Right arm pain Status: Acute History of Present Illness Date of Admission: 07/07/18 Chief Complaint: chest pain; right arm pain The patient is a 78 year old F with a history of CAD status post CABG, hypertension, diabetes and hypercholesterolemia. She also has a history of cervical spine stenosis and had a recent surgery due to cervical radiculopathy. She also has a history of BPPV. She was admitted on 07/07/2018 through the ED with a complaint of chest pain which started this afternoon while she was playing bingo with her friend she described as a stabbing chest pain which radiated to her right shoulder. It was sudden and then went away. Subsequently she had pressure-like retrosternal chest pain which she rated about 3 out of 10 and also radiated to the left shoulder. She denied any assisted lightheadedness or dizziness, palpitations, nausea vomiting. She did complain of persistent right shoulder pain with radiation down her right arm with associated tingling which is not new but states is worsened. She denied any fever or chills review of systems otherwise negative. EKG done in the ED showed sinus rhythm with rate of 63 and left bundle branch block. Chest x-ray showed no acute cardiopulmonary process. Troponin was less than 0.015. Was 1.29 which on her baseline. She has been admitted to be managed for chest pain and right shoulder pain. [] Past Medical History Past Medical History (Chronic Problems): Chronic Problems (Last Updated 04/13/18 @ 19:54 by Blas Angeles MD) Type 2 diabetes mellitus (Chronic) HTN (hypertension) (Chronic) CAD (coronary artery disease) (Chronic) Hx of CABG (Chronic) Carpal tunnel syndrome on right (Chronic) Cervical radicular pain (Chronic) Medical History: Medical History (Last Updated 04/13/18 @ 19:54 by Blas Angeles MD) HTN (hypertension) I10 Allergies orange juice Allergy (Verified 07/07/18 13:09) Hives Penicillins Allergy (Verified 07/07/18 13:09) Anaphylaxis strawberry Allergy (Verified 07/07/18 13:09) Hives acetaminophen Adverse Reaction (Verified 07/07/18 13:09) Vomiting Sulfa (Sulfonamide Antibiotics) Adverse Reaction (Verified 07/07/18 13:09) Vomiting Home Medications: Ambulatory Orders Medication Instructions Recorded Aspirin E.C. [Ecotrin] 81 mg PO DAILY 03/17/18 Atorvastatin Calcium 40 mg PO DAILY 03/17/18 Ergocalciferol [Vitamin D] 50,000 unit PO MO 03/17/18 Ferrous Sulfate [Iron] 325 mg PO DAILY 03/17/18 Levothyroxine Sodium [Synthroid] 112 mcg PO DAILY 03/17/18 Losartan Potassium [Cozaar] 25 mg PO DAILY 03/17/18 Insulin Glargine,Hum.rec.anlog 30 unit SQ QHS 04/13/18 [Basaglar Kwikpen U-100] Ascorbic Acid [Vitamin C] 500 mg PO DAILY@0800 07/07/18 Gabapentin [Neurontin] 300 mg PO DAILY 07/07/18 Insulin Aspart [Novolog Flexpen] 10 units SQ 4X/DAY 07/07/18 Insulin Aspart [Novolog Flexpen] See Protocol SQ .COMPLEX 07/07/18 Metoprolol Tartrate [Lopressor 50 mg PO BID 07/07/18 (Beta Carloz)] Rivaroxaban [Xarelto] 20 mg PO DAILY 07/07/18 Surgical History: coronary bypass surgery, - - Right carpal tunnel surgery Psychiatric History: No 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 Denies: Chest Tightness, Orthopnea, Palpitations, Paroxysmal Noc. Dyspnea, Syncope Respiratory: Denies: Cough, Shortness of breath at rest, Sputum production Gastrointestinal: Denies: Abdominal Pain, Constipation, Diarrhea, Nausea, Vomiting Genitourinary: Denies: Dysuria Musculoskeletal: Reports: Arm Pain - right arm and right shoulder pain, with tingling and numbness radiating down her right arm., Shoulder Pain Skin: Denies: Rash, Wounds Neurological: Reports: Numbness, Tingling - numbness and tingling of her right shoulder, radiating down her right arm. Denies: Blurred vision, Tremor Psychiatric: Denies: Anxiety, Depression, Homicidal Ideations, Suicidal Ideations Hematologic/ Lymphatic: Denies: Easy Bruising, Easy Bleeding VTE Information - Inpt Only VTE Present on Admission: No VTE Pharm Prophylaxis ordered?: Yes Patient Problems: Active and Suspected Problems (Last Updated 04/13/18 @ 19:54 by Blas Angeles MD) Chest pain (Acute) Right arm pain (Acute) - Physical Exam General: Alert, Oriented x3, Cooperative, No apparent distress, - - patient looks uncomfortable HEENT: Atraumatic, PERRLA, EOMI, Normocephalic Oral: Moist Mucosa Neck: Supple, No JVD, Negative Carotid Bruits Lungs: Clear to auscultation, Normal air movement, No rhonchi, No wheeze, No rales Cardiovascular: Regular rate, Regular Rhythm, Normal S1, Normal S2, No murmurs Abdomen: Bowel Sounds Present, Soft, Non Tender, Non-Distended, No Hepato- splenomegaly Extremities: No clubbing, No cyanosis, No edema, Capillary Refill Less than 3 Seconds Skin: No rashes, No breakdown Musculoskeletal: - - tenderness to palpation of her right shoulder and right arm.tingling and numbness of right arm Lymphatic: No Cervical, Supraclavicular, or Inguinal Adenopathy Neurological: Cranial nerves II-XII grossly intact, - - reduced power of 4/5 in right upper extremity with mild decreased sensation to pinprick and light touch Psych/Mental Status: Normal Affect, Appropriate, Alert and oriented to time, place, person, mood and affect Vital Signs Temp Pulse Resp BP Pulse Ox 98.7 F 59 L 18 140/86 H 98 07/07/18 13:05 07/07/18 15:09 07/07/18 15:09 07/07/18 15:09 07/07/18 15:09 Oxygen Flow Rate (L/min) 2 Oxygen Delivery Method Room Air Weight: 190 lb Body Mass Index (BMI) 32.5 Laboratory Tests Past 24 Hrs 07/07/18 07/07/18 13:14 13:14 WBC 10.6 RBC 4.11 L Hgb 11.9 L Hct 38.2 MCV 92.9 MCH 29.0 MCHC 31.2 L RDW 14.4 RDW Differential 48.8 H Plt Count 294 MPV 11.2 Immature Gran % (Auto) 0.100 Neut % (Auto) 65.9 Lymph % (Auto) 23.8 [place] % (Auto) 6.8 Eos % (Auto) 3.0 Baso % (Auto) 0.4 Absolute Neuts (auto) 7.0 Absolute Lymphs (auto) 2.52 Total Counted Not Reportable Sodium 140 Potassium 3.7 Chloride 107 Carbon Dioxide 24.0 Anion Gap 9 BUN 19 H Creatinine 1.29 H Estim Creat Clear Calc 31.54 Est GFR (MDRD) Af Amer 52 L Est GFR (MDRD) Non-Af 43 L BUN/Creatinine Ratio 14.7 Glucose 128 H Calcium 9.2 Troponin I < 0.015 Assessment/Plan All Active Problems (Last Updated 04/13/18 @ 19:54 by Blas Angeles MD) Chest pain (Acute) Right arm pain (Acute) Vertigo, peripheral (Resolved) Chest pain, unspecified (Acute) 78-year-old female presenting with chest pain and right shoulder and arm pain. 1. Chest pain, to rule out ACS * Chest pain pressure-like and retrosternal. EKG showed no acute cardia pulmonary process. * Admit to PCU with telemetry. * Initial troponin was negative. We will cycle. * Stress test in the morning. * Been on nitroglycerin as needed and aspirin 81 mg daily. * 2. CAD status post CABG: On aspirin, statin and metoprolol. 3. Right shoulder pain: * has a history of cervical spine stenosis and radiculopathy, and is s/p surgery af ew months ago. S * ymptoms do seem like radiculopathy. She is currently on gabapentin. Will continue. * X-ray ordered of the right shoulder. * tyelenol and morphine for pain * 4. Diabetes mellitus: on insulin 30mg daily and ISS. Checks before meals at bedtime. 5. Hypertension: On losartan and metoprolol. Will continue. 6. History of cervical spine stenosis status post surgery. On gabapentin. 7. History of PE: had PE in 04/20. with CTA showing several small peripheral intraluminal filling defect involving pulmonary branches. On Xarelto. COde status:Full code. * patient, sister and brother in law were counselled about different types of code status including full code, DNRCC and DNRCCA. Pateint elects to be full code. Total face to face time 17 mins. Code Visit OBSV E&M: 71008 Initial observation care L3 Procedures: 50800 Advncd Care Plan 30 Min
--- NOTE | 2018-07-07 15:53 | EKG12_ITS ---
Test Reason : ADMISSION Blood Pressure : / mmHG Vent. Rate : 053 BPM Atrial Rate : 053 BPM P-R Int : 190 ms QRS Dur : 142 ms QT Int : 540 ms P-R-T Axes : 061 -41 148 degrees QTc Int : 506 ms Sinus bradycardia Left axis deviation Left bundle branch block Abnormal ECG When compared with ECG of 07-JUL-2018 14:51, MANUAL COMPARISON REQUIRED, DATA IS UNCONFIRMED Confirmed by RANJANA MARQUEZ ([id number]), newspaper copy editor DAMIAN MCCRACKEN ([id number]) on 07/12/2018 12:47:18 PM Referred By: CADENCE Confirmed By:RANJANA MARQUEZ
[2018-07-07 16:50] LABS: Bedside Glucose 89 mg/dL (70-110)
--- NOTE | 2018-07-07 17:00 | RAD_ITS ---
STUDY: X-RAY - RIGHT SHOULDER REASON FOR EXAM: Female, 78 years old. Right shoulder pain beginning this morning. Chest pain earlier today that has resolved. TECHNIQUE: 4 view(s) of the shoulder. COMPARISON: Right humerus, May 24, 2018. Right shoulder, March 17, 2018 FINDINGS: There is mild degenerative arthrosis of the glenohumeral articulation. There is degenerative arthrosis of the acromioclavicular joint without inferior osseous spur formation. Normal acromion. There is no acute fracture, dislocation or destructive osseous pathology. Normal humeral head and visualized proximal humerus. The soft tissue structures are unremarkable. Again seen is anterior fusion cervical spine and evidence of median sternotomy. Normal visualized pulmonary apex. RAD/Shoulder min 2 Views IMPRESSION: 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 Electronically Signed: Luisito Harper DO at 17:17 EDT Tel [phone], Service support ,
[2018-07-07] MEDS: Rivaroxaban 20 MG Tablet PO (18:59)
[2018-07-07] MEDS: 0.9% NaCl Peripheral Flush Adult/Peds IV (22:32)
[2018-07-07] MEDS: Morphine 2 MG/ML Syringe 1 MG IV (22:32)
[2018-07-07] MEDS: Atorvastatin Calcium 40 MG Tablet PO (22:38)
[2018-07-07] MEDS: Metoprolol Tartrate 50 MG Tablet PO (22:38)
[2018-07-07 23:00] LABS: Bedside Glucose 103 mg/dL (70-110)
[2018-07-08] VITALS (14 sets, daily range): BP systolic 116–150; BP diastolic 40–57; PULSE 55–69; RESP 16–21; TEMP 36.7–36.9; O2SAT 93–98
[2018-07-08] MEDS: Aspirin E.C. 81 MG Tablet PO (05:44)
[2018-07-08] MEDS: Morphine 2 MG/ML Syringe 1 MG IV ×3 (05:44→13:54)
[2018-07-08] MEDS: Levothyroxine 112 MCG Tablet PO (05:44)
[2018-07-08] MEDS: Losartan Potassium 25 MG Tablet PO (05:44)
[2018-07-08] MEDS: 0.9% NaCl Peripheral Flush Adult/Peds IV ×3 (05:44→13:55)
[2018-07-08 05:51] LABS: Absolute Lymphocyte Count 1.88 X10^3/ul (0.83-4.51); Absolute Neutrophil Count 3.9 X10^3/uL (2.0-7.7); Basophil# 0.06 X10^3/uL; Basophil% 0.9 % (0-1); Eosinophil# 0.32 X10^3/uL; Eosinophils% 4.7 % (0-5); Hematocrit 33.8 % (37-47); Hemoglobin 10.6 g/dl (12.0-15.0); Lymphocyte # 1.88 X10^3/ul (4.0); Lymphocyte % 27.6 % (19-41); Mean Corp Hgb Conc 31.4 g/gl (32-36); Mean Corpuscular Volume 95.8 fL (81-99); Mean Platelet Vol. 10.7 fl (6.2-12.0); Monocyte# 0.63 X10^3/uL; Monocyte% 9.3 % (0-10); Neutrophil # 3.91 X10^3/uL (2.7-7.7); Neutrophil % 57.4 % (47-70); Platelet Count 267 K/mm3 (150-450); RBC Distribution Width CV 14.7 % (11.6-14.6); RBC Distribution Width SD 49.3 fl (35.1-43.9); Red Blood Count 3.53 M/mm3 (4.2-5.4); White Blood Count 6.8 K/mm3 (4.4-11.0)
--- NOTE | 2018-07-08 05:55 | EKG12_ITS ---
Test Reason : CHEST PAIN Blood Pressure : / mmHG Vent. Rate : 065 BPM Atrial Rate : 065 BPM P-R Int : 202 ms QRS Dur : 132 ms QT Int : 488 ms P-R-T Axes : 060 -46 126 degrees QTc Int : 507 ms Normal sinus rhythm Left axis deviation Left bundle branch block Abnormal ECG Confirmed by JAIME EL, DIDI ([id number]), newspaper editor managing DAMIAN MCCRACKEN ([id number]) on 07/14/2018 4:13:10 PM Referred By: CADENCE Confirmed By:DIDI SANDOVAL MD
[2018-07-08 06:01] LABS: Anion Gap 6 (5-15); BUN 22 mg/dL (7-18); BUN/Creat Ratio 16.9 RATIO (10-20); Calcium,Total 8.4 mg/dL (8.5-10.1); Chloride 110 mmol/L (98-107); EST Glomerular Filtration Rate 42 mL/min (>60); Est Glom Filt Rate - Afr Amer 51 mL/min (>60); Estimated Creatinine Clearance 31.29 ml/min; Glucose 92 mg/dL (74-106); Potassium 4.1 mmol/L (3.5-5.1); Sodium Level 144 mmol/L (136-145)
[2018-07-08 06:06] LABS: POSITIVE COUNT NO; POSITIVE DIFFERENTIAL NO; POSITIVE MORPHOLOGY NO
[2018-07-08 06:12] LABS: International Normalized Ratio 1.7; Prothrombin Time (Protime)PT. 20.4 SECONDS (11.7-14.9)
[2018-07-08 06:45] LABS: Bedside Glucose 90 mg/dL (70-110)
--- NOTE | 2018-07-08 09:39 | STRESSREP ---
Stress Test Report Date: 07/08/2018 Procedure: Pharmacologic stress nuclear imaging study Indications: Chest pain; CAD; CABG Consent: Per the patient Procedure: The patient underwent pharmacologic (Regadenoson) evaluation with a peak heart rate of 92 beats per minute (64 predicted maximal heart rate) and a peak blood pressure of 150/70 mmHg. The baseline ECG demonstrated normal sinus rhythm; left bundle branch block pattern. The peak pharmacologic ECG demonstrated no obvious ECG changes. There were occasional PACs in recovery. There was no complaint of chest discomfort during pharmacologic infusion or recovery. The examination was discontinued secondary to completion of protocol. Impression: 1. Pharmacologic (Regadenoson) evaluation 2. Peak pharmacologic ECG with continued left bundle branch block pattern with no obvious ECG changes. 3. There were occasional PACs in recovery. 4. Nuclear images pending Myocardial perfusion imaging study: Technique: The patient was injected with 11.9 millicuries of technetium 99m Cardiolite and subsequently rest SPECT Cardiolite nuclear imaging was obtained in the horizontal long, vertical long, and short axis views. The patient underwent pharmacologic (Regadenoson) evaluation with a peak heart rate of 92 beats per minute (64 % percent predicted maximal heart rate) and a peak blood pressure of 150/70 mmHg. The patient was injected with 34.7 millicuries of technetium 99m Cardiolite and subsequently stress SPECT Cardiolite nuclear imaging was obtained in the horizontal long, vertical long, and short axis views. A gated Cardiolite study at peak stress was obtained. Interpretation: Rest and stress SPECT Cardiolite nuclear imaging status post realignment, normalization, and attenuation correction demonstrate relative uniform tracer uptake and myocardial perfusion appearing within normal limits. There is end systolic thickening and brightening. The gated Cardiolite study demonstrates myocardial thickening and inward wall motion. The reported LVEF is 60 %. Impression: 1. Rest and stress SPECT Cardiolite nuclear imaging demonstrate relative uniform tracer uptake and myocardial perfusion appearing within normal limits. 2. The gated Cardiolite study reports an LVEF of 60 %. This note was generated with [employer] software. It may contain incorrect words, spelling, and punctuation that were not noted in checking the note before signing.
[2018-07-08] MEDS: Ferrous Sulfate 325 MG Tablet PO (11:29)
[2018-07-08] MEDS: Metoprolol Tartrate 50 MG Tablet PO ×2 (11:29→21:54)
[2018-07-08] MEDS: Glucerna Shake 120 ML LIQUID PO ×2 (11:30→17:32)
[2018-07-08] MEDS: Ascorbic Acid 500 MG Tablet PO (11:30)
[2018-07-08] MEDS: Gabapentin 300 MG Capsule PO ×2 (11:30→17:27)
[2018-07-08] MEDS: Insulin Lispro 100 UNIT/ML INSULN.PEN 10 UNIT SC ×3 (11:40→21:53)
[2018-07-08 11:55] LABS: Bedside Glucose 116 mg/dL (70-110)
--- NOTE | 2018-07-08 14:37 | CASEMGMT ---
NARCISA received a call from Muna at [facility]. She said she was talking with patient's family and she received a referral from [place] in the ER. She was just checking on this. NARCISA told her SW was not aware of this, but NARCISA will send her referral information. NARCISA also called patient's son, Corey and confirmed this is what they would like for patient. NARCISA faxed referral information to [facility]. Patient will require insurance authorization. Plan: [facility] pending their acceptance and insurance approval. Ashlie CARRASQUILLO MSW
--- NOTE | 2018-07-08 15:33 | CASEMGMT ---
SW met with patient, introduced self and role at [facility]. NARCISA told patient SW spoke with her son and he said the plan is for her to go to [facility] at d/c. She said she knew they were trying to get her in there, but she has not talked to her son since she has been in the hospital. She said she is ok with this plan. Ashlie BOUDREAUX
[2018-07-08 16:40] LABS: Bedside Glucose 179 mg/dL (70-110)
[2018-07-08] MEDS: Rivaroxaban 20 MG Tablet PO (17:27)
[2018-07-08] MEDS: oxyCODONE 5 MG Tablet PO ×2 (17:32→22:26)
--- NOTE | 2018-07-08 18:12 | PCM.PN.HOSP ---
Patient Problems: Active and Suspected Problems (Last Updated 04/13/18 @ 19:54 by Blas Angeles MD) Chest pain (Acute) Right arm pain (Acute) Subjective: The patient is a 78 year old F with a history of CAD status post CABG, hypertension, diabetes and hypercholesterolemia. She also has a history of cervical spine stenosis and had a recent surgery due to cervical radiculopathy. She also has a history of BPPV. She was admitted on 07/07/2018 through the ED with a complaint of chest pain which started this afternoon while she was playing bingo with her friend she described as a stabbing chest pain which radiated to her right shoulder. The stress test was negative for any cardiac pain, spoken with case management patient needs precertification for [facility] facility and will likely be here till Wednesday. Patient still complaining of arm pain have added oxycodone and increase Neurontin to 300 mg twice daily to see if this will help. Otherwise patient denies any nausea vomiting or diarrhea but is increasingly debilitated Vitals/I&O's: Vital Signs Temp Pulse Resp BP Pulse Ox 98.5 F 66 16 150/57 H 93 07/08/18 14:49 07/08/18 14:49 07/08/18 14:49 07/08/18 14:49 07/08/18 14:49 Oxygen Flow Rate (L/min) 2 Oxygen Delivery Method Room Air Weight: 86 kg Body Mass Index (BMI) 32.5 Intake and Output for Last 24 Hours 07/06/18 07/07/18 07/08/18 23:59 23:59 23:59 Intake Total 240 / 240 510 / 510 Output Total 300 / 300 Balance 240 / 240 210 / 210 General: Alert, Oriented x3, Cooperative HEENT: Atraumatic, PERRLA, EOMI Oral: Moist Mucosa, No Gingival or Mucosal Lesions/ Ulcerations Neck: Supple, No JVD, Negative Carotid Bruits Lungs: Clear to auscultation, Normal air movement, No rhonchi, No wheeze, No rales Cardiovascular: Normal S1, Normal S2, No murmurs Abdomen: Bowel Sounds Present, Soft, Non Tender, Non-Distended Extremities: No clubbing, No cyanosis, Edema - Leg edema Skin: No rashes, No breakdown Musculoskeletal: Tenderness Lymphatic: No Cervical, Supraclavicular, or Inguinal Adenopathy Neurological: Cranial nerves II-XII grossly intact, Neuro grossly intact, Motor Exam 5/5 strength throughout - Has decreased strength on the right upper extremity and also seems to be on the left upper extremity as well lower extremities seem to be 5 out of 5 though Psych/Mental Status: Normal Affect, Appropriate, Alert and oriented to time, place, person, mood and affect Laboratory Results 07/07/18 19:11: Troponin I < 0.015 07/07/18 22:21: POC Glucose 103 07/08/18 05:28: WBC 6.8, RBC 3.53 L, Hgb 10.6 L, Hct 33.8 L, MCV 95.8, MCH 30.0, MCHC 31.4 L, RDW 14.7 H, RDW Differential 49.3 H, Plt Count 267, MPV 10.7, Immature Gran % (Auto) 0.100, Neut % (Auto) 57.4, Lymph % (Auto) 27.6, [place] % (Auto) 9.3, Eos % (Auto) 4.7, Baso % (Auto) 0.9, Absolute Neuts (auto) 3.9, Absolute Lymphs (auto) 1.88, Total Counted Not Reportable 07/08/18 05:28: Sodium 144, Potassium 4.1, Chloride 110 H, Carbon Dioxide 28.0, Anion Gap 6, BUN 22 H, Creatinine 1.30 H, Estim Creat Clear Calc 31.29, Est GFR (MDRD) Af Amer 51 L, Est GFR (MDRD) Non-Af 42 L, BUN/Creatinine Ratio 16.9, Glucose 92, Calcium 8.4 L 07/08/18 05:28: PT 20.4 H, INR 1.7, APTT 38.0 H 07/08/18 05:36: POC Glucose 90 07/08/18 11:25: POC Glucose 116 H 07/08/18 16:33: POC Glucose 179 H Current Medications Ascorbic Acid (Vitamin C) 500 mg PO DAILY@0800 [facility] Last Admin: 07/08/18 11:30 Dose: 500 mg [facility] Last Admin: 07/08/18 05:44 Dose: 81 mg Atorvastatin Calcium (Lipitor) 40 mg PO QHS [facility] Last Admin: 07/07/18 22:38 Dose: 40 mg Ergocalciferol (Vitamin D) 50,000 unit PO MO [facility] Ferrous Sulfate (Ferrous Sulfate) 325 mg PO DAILY@1200 [facility] Last Admin: 07/08/18 11:29 Dose: 325 mg Gabapentin (Neurontin) 300 mg PO BIDCM [facility] Last Admin: 07/08/18 17:27 Dose: 300 mg Insulin Glargine (Lantus (Bk)) 30 units SC QHS [facility] Last Admin: 07/07/18 22:37 Dose: 30 units Insulin Human Lispro (Humalog Kwikpen (Bk)) 10 unit SC 4X/DAYCM [facility] Last Admin: 07/08/18 17:27 Dose: 10 units Levothyroxine Sodium (Synthroid) 112 mcg PO DAILY@0600 [facility] Last Admin: 07/08/18 05:44 Dose: 112 mcg Losartan Potassium (Cozaar) 25 mg PO DAILY [facility] Last Admin: 07/08/18 05:44 Dose: 25 mg Magnesium Hydroxide (Milk Of Magnesia) 30 ml PO DAILY PRN PRN PRN Reason: Constipation Metoprolol Tartrate (Lopressor (Beta Carloz)) 50 mg PO BID [facility] Last Admin: 07/08/18 11:29 Dose: 50 mg Morphine Sulfate () 1 mg IV Q3H PRN PRN PRN Reason: SEVERE PAIN (6-10/10) Last Admin: 07/08/18 13:54 Dose: 1 mg Nutritional Formula (Lactose Free) (Glucerna Shake) 120 ml PO TIDCM [facility] Last Admin: 07/08/18 17:32 Dose: 120 ml Oxycodone HCl (Oxyir) 5 mg PO Q4H PRN PRN PRN Reason: SEVERE PAIN (6-10/10) Last Admin: 07/08/18 17:32 Dose: 5 mg Rivaroxaban (Xarelto) 20 mg PO DAILY@1700 [facility] Last Admin: 07/08/18 17:27 Dose: 20 mg Sodium Chloride () 5 - 30 ml IV UD PRN PRN Reason: SALINE FLUSH Last Admin: 07/08/18 13:55 Dose: 10 ml Medical Necessity - Tobacco Use Smoking Status: Never smoker Tobacco Use: Non-smoker Assessment/Plan All Active Problems (Last Updated 04/13/18 @ 19:54 by Blas Angeles MD) Chest pain (Acute) Right arm pain (Acute) Vertigo, peripheral (Resolved) Chest pain, unspecified (Acute) The patient is a 78 year old F with a history of CAD status post CABG, hypertension, diabetes and hypercholesterolemia. She also has a history of cervical spine stenosis and had a recent surgery due to cervical radiculopathy. She also has a history of BPPV. She was admitted on 07/07/2018 through the ED with a complaint of chest pain which started this afternoon while she was playing bingo with her friend she described as a stabbing chest pain which radiated to her right shoulder. Chest pain, With stress test negative. Seems to be related to patient's cervical radiculopathy and may be arthritis. Will continue Neurontin however will give twice a day, add oxycodone as we need to create a pain management system that works for her at home. We will continue PT OT assessments. And likely will be discharged on Wednesday pending precertification according to case management. CAD status post CABG: On aspirin, statin and metoprolol. Right shoulder pain: Continue Tylenol and oxycodone, x-ray only shows degenerative changes, will continue PT OT. Diabetes mellitus: On Levemir 30 units subcu nightly and sliding scale Hypertension: On losartan and metoprolol we will add as needed hydralazine History of cervical spine stenosis status post surgery On gabapentin will increase for better pain control History of PE: had PE in 04/20. with CTA showing several small peripheral intraluminal filling defect involving pulmonary branches. On Xarelto. GI prophylaxis on Xarelto CODE STATUS full Disposition patient will likely be in the hospital receiving physical therapy pain medications until precertification is done with likely transfer to [facility] on Wednesday. Chart is dictated with advisor consultant software. Errors may occur in dictation that may change providers meaning. This note was generated with Tagwhat dictation software. It may contain incorrect words, spelling, and punctuation that were not noted in checking the note before signing.
--- NOTE | 2018-07-08 18:17 | PN_ITS ---
Patient Problems: Active and Suspected Problems (Last Updated 04/13/18 @ 19:54 by Blas Angeles MD) Chest pain (Acute) Right arm pain (Acute) Subjective: The patient is a 78 year old F with a history of CAD status post CABG, hypertension, diabetes and hypercholesterolemia. She also has a history of cervical spine stenosis and had a recent surgery due to cervical radiculopathy. She also has a history of BPPV. She was admitted on 07/07/2018 through the ED with a complaint of chest pain which started this afternoon while she was playing bingo with her friend she described as a stabbing chest pain which radiated to her right shoulder. The stress test was negative for any cardiac pain, spoken with case management patient needs precertification for retirement facility and will likely be here till Wednesday. Patient still complaining of arm pain have added oxycodone and increase Neurontin to 300 mg twice daily to see if this will help. Otherwise patient denies any nausea vomiting or diarrhea but is increasingly debilitated Vitals/I&O's: Vital Signs Temp Pulse Resp BP Pulse Ox 98.5 F 66 16 150/57 H 93 07/08/18 14:49 07/08/18 14:49 07/08/18 14:49 07/08/18 14:49 07/08/18 14:49 Oxygen Flow Rate (L/min) 2 Oxygen Delivery Method Room Air Weight: 86 kg Body Mass Index (BMI) 32.5 Intake and Output for Last 24 Hours 07/06/18 07/07/18 07/08/18 23:59 23:59 23:59 Intake Total 240 / 240 510 / 510 Output Total 300 / 300 Balance 240 / 240 210 / 210 General: Alert, Oriented x3, Cooperative HEENT: Atraumatic, PERRLA, EOMI Oral: Moist Mucosa, No Gingival or Mucosal Lesions/ Ulcerations Neck: Supple, No JVD, Negative Carotid Bruits Lungs: Clear to auscultation, Normal air movement, No rhonchi, No wheeze, No rales Cardiovascular: Normal S1, Normal S2, No murmurs Abdomen: Bowel Sounds Present, Soft, Non Tender, Non-Distended Extremities: No clubbing, No cyanosis, Edema - Leg edema Skin: No rashes, No breakdown Musculoskeletal: Tenderness Lymphatic: No Cervical, Supraclavicular, or Inguinal Adenopathy Neurological: Cranial nerves II-XII grossly intact, Neuro grossly intact, Motor Exam 5/5 strength throughout - Has decreased strength on the right upper extremity and also seems to be on the left upper extremity as well lower extremities seem to be 5 out of 5 though Psych/Mental Status: Normal Affect, Appropriate, Alert and oriented to time, place, person, mood and affect Laboratory Results 07/07/18 19:11: Troponin I < 0.015 07/07/18 22:21: POC Glucose 103 07/08/18 05:28: WBC 6.8, RBC 3.53 L, Hgb 10.6 L, Hct 33.8 L, MCV 95.8, MCH 30.0, MCHC 31.4 L, RDW 14.7 H, RDW Differential 49.3 H, Plt Count 267, MPV 10.7, Immature Gran % (Auto) 0.100, Neut % (Auto) 57.4, Lymph % (Auto) 27.6, [place] % (Auto) 9.3, Eos % (Auto) 4.7, Baso % (Auto) 0.9, Absolute Neuts (auto) 3.9, Absolute Lymphs (auto) 1.88, Total Counted Not Reportable 07/08/18 05:28: Sodium 144, Potassium 4.1, Chloride 110 H, Carbon Dioxide 28.0, Anion Gap 6, BUN 22 H, Creatinine 1.30 H, Estim Creat Clear Calc 31.29, Est GFR (MDRD) Af Amer 51 L, Est GFR (MDRD) Non-Af 42 L, BUN/Creatinine Ratio 16.9, Glucose 92, Calcium 8.4 L 07/08/18 05:28: PT 20.4 H, INR 1.7, APTT 38.0 H 07/08/18 05:36: POC Glucose 90 07/08/18 11:25: POC Glucose 116 H 07/08/18 16:33: POC Glucose 179 H Current Medications Ascorbic Acid (Vitamin C) 500 mg PO DAILY@0800 [facility] Last Admin: 07/08/18 11:30 Dose: 500 mg [facility] ([facility]) [facility] Last Admin: 07/08/18 05:44 Dose: 81 mg Atorvastatin Calcium (Lipitor) 40 mg PO QHS [facility] Last Admin: 07/07/18 22:38 Dose: 40 mg Ergocalciferol (Vitamin D) 50,000 unit PO MO [facility] Ferrous Sulfate (Ferrous Sulfate) 325 mg PO DAILY@1200 [facility] Last Admin: 07/08/18 11:29 Dose: 325 mg Gabapentin (Neurontin) 300 mg PO BIDCM [facility] Last Admin: 07/08/18 17:27 Dose: 300 mg Insulin Glargine (Lantus (Bk)) 30 units SC QHS [facility] Last Admin: 07/07/18 22:37 Dose: 30 units Insulin Human Lispro (Humalog Kwikpen (Bk)) 10 unit SC 4X/DAYCM [facility] Last Admin: 07/08/18 17:27 Dose: 10 units Levothyroxine Sodium (Synthroid) 112 mcg PO DAILY@0600 [facility] Last Admin: 07/08/18 05:44 Dose: 112 mcg Losartan Potassium (Cozaar) 25 mg PO DAILY [facility] Last Admin: 07/08/18 05:44 Dose: 25 mg Magnesium Hydroxide (Milk Of Magnesia) 30 ml PO DAILY PRN PRN PRN Reason: Constipation Metoprolol Tartrate (Lopressor (Beta Carloz)) 50 mg PO BID [facility] Last Admin: 07/08/18 11:29 Dose: 50 mg Morphine Sulfate () 1 mg IV Q3H PRN PRN PRN Reason: SEVERE PAIN (6-10/10) Last Admin: 07/08/18 13:54 Dose: 1 mg Nutritional Formula (Lactose Free) (Glucerna Shake) 120 ml PO TIDCM [facility] Last Admin: 07/08/18 17:32 Dose: 120 ml Oxycodone HCl (Oxyir) 5 mg PO Q4H PRN PRN PRN Reason: SEVERE PAIN (6-10/10) Last Admin: 07/08/18 17:32 Dose: 5 mg Rivaroxaban (Xarelto) 20 mg PO DAILY@1700 [facility] Last Admin: 07/08/18 17:27 Dose: 20 mg Sodium Chloride () 5 - 30 ml IV UD PRN PRN Reason: SALINE FLUSH Last Admin: 07/08/18 13:55 Dose: 10 ml Medical Necessity - Tobacco Use Smoking Status: Never smoker Tobacco Use: Non-smoker Assessment/Plan All Active Problems (Last Updated 04/13/18 @ 19:54 by Blas Angeles MD) Chest pain (Acute) Right arm pain (Acute) Vertigo, peripheral (Resolved) Chest pain, unspecified (Acute) The patient is a 78 year old F with a history of CAD status post CABG, hypertension, diabetes and hypercholesterolemia. She also has a history of cervical spine stenosis and had a recent surgery due to cervical radiculopathy. She also has a history of BPPV. She was admitted on 07/07/2018 through the ED with a complaint of chest pain which started this afternoon while she was playing bingo with her friend she described as a stabbing chest pain which radiated to her right shoulder. Chest pain, With stress test negative. Seems to be related to patient's cervical radiculopathy and may be arthritis. Will continue Neurontin however will give twice a day, add oxycodone as we need to create a pain management system that works for her at home. We will continue PT OT assessments. And likely will be discharged on Wednesday pending precertification according to case management. CAD status post CABG: On aspirin, statin and metoprolol. Right shoulder pain: Continue Tylenol and oxycodone, x-ray only shows degenerative changes, will continue PT OT. Diabetes mellitus: On Levemir 30 units subcu nightly and sliding scale Hypertension: On losartan and metoprolol we will add as needed hydralazine History of cervical spine stenosis status post surgery On gabapentin will increase for better pain control History of PE: had PE in 04/20. with CTA showing several small peripheral intraluminal filling defect involving pulmonary branches. On Xarelto. GI prophylaxis on Xarelto CODE STATUS full Disposition patient will likely be in the hospital receiving physical therapy pain medications until precertification is done with likely transfer to retirement facility on Wednesday. Chart is dictated with dough sheeter software. Errors may occur in dictation that may change providers meaning. This note was generated with [employer] dictation software. It may contain incorrect words, spelling, and punctuation that were not noted in checking the note before signing.
--- NOTE | 2018-07-08 20:47 | EKG12_ITS ---
Test Reason : AM EKG Blood Pressure : / mmHG Vent. Rate : 059 BPM Atrial Rate : 059 BPM P-R Int : 210 ms QRS Dur : 136 ms QT Int : 458 ms P-R-T Axes : 064 -40 159 degrees QTc Int : 453 ms Sinus bradycardia with 1st degree A-V block Left axis deviation Left bundle branch block Abnormal ECG When compared with ECG of 07-JUL-2018 16:10, MANUAL COMPARISON REQUIRED, DATA IS UNCONFIRMED Confirmed by ALEK EL, SWATHI ([id number]), video editor DAMIAN MCCRACKEN ([id number] on 07/20/2018 2:50:35 PM Referred By: ARIS Confirmed By:SWATHI GASTON MD
[2018-07-08] MEDS: Atorvastatin Calcium 40 MG Tablet PO (21:54)
[2018-07-08 22:35] LABS: Bedside Glucose 164 mg/dL (70-110)
[2018-07-09] VITALS (14 sets, daily range): BP systolic 113–145; BP diastolic 41–94; PULSE 42–65; RESP 12–18; TEMP 36.3–36.7; O2SAT 95–97
[2018-07-09] MEDS: oxyCODONE 5 MG Tablet PO ×3 (03:15→21:20)
[2018-07-09] MEDS: Levothyroxine 112 MCG Tablet PO (05:15)
[2018-07-09 06:48] LABS: Absolute Lymphocyte Count 2.26 X10^3/ul (0.83-4.51); Absolute Neutrophil Count 4.8 X10^3/uL (2.0-7.7); Basophil# 0.05 X10^3/uL; Basophil% 0.6 % (0-1); Eosinophil# 0.38 X10^3/uL; Eosinophils% 4.6 % (0-5); Hematocrit 33.5 % (37-47); Hemoglobin 10.4 g/dl (12.0-15.0); Lymphocyte # 2.26 X10^3/ul (4.0); Lymphocyte % 27.1 % (19-41); Mean Corpuscular Hgb 30.1 pg (27.0-32.0); Mean Corpuscular Volume 96.8 fL (81-99); Mean Platelet Vol. 10.4 fl (6.2-12.0); Monocyte# 0.79 X10^3/uL; Monocyte% 9.5 % (0-10); Neutrophil # 4.84 X10^3/uL (2.7-7.7); POSITIVE COUNT NO; POSITIVE DIFFERENTIAL NO; POSITIVE MORPHOLOGY NO; Platelet Count 261 K/mm3 (150-450); RBC Distribution Width CV 14.4 % (11.6-14.6); RBC Distribution Width SD 48.2 fl (35.1-43.9); Red Blood Count 3.46 M/mm3 (4.2-5.4); White Blood Count 8.3 K/mm3 (4.4-11.0)
[2018-07-09 06:55] LABS: Bedside Glucose 82 mg/dL (70-110)
[2018-07-09 07:15] LABS: ALB/GLOB Ratio 0.8 RATIO (0.9-2.4); AST(SGOT) 24 U/L (15-37); Alanine Aminotransfer ALT/SGPT 30 U/L (13-56); Albumin, Serum 2.8 g/dL (3.2-5.0); Alkaline Phosphatase 75 U/L (45-117); Anion Gap 7 (5-15); BUN 21 mg/dL (7-18); BUN/Creat Ratio 17.8 RATIO (10-20); Calcium,Total 8.5 mg/dL (8.5-10.1); Chloride 106 mmol/L (98-107); Creatinine, Serum 1.18 mg/dL (0.55-1.02); EST Glomerular Filtration Rate 47 mL/min (>60); Est Glom Filt Rate - Afr Amer 57 mL/min (>60); Estimated Creatinine Clearance 34.48 ml/min; Globulin 3.6 g/dL (2.2-4.2); Glucose 83 mg/dL (74-106); Magnesium 2.2 mg/dL (1.6-2.6); Phosphorus 5.1 mg/dL (2.5-4.9); Potassium 4.6 mmol/L (3.5-5.1); Protein, Total 6.4 g/dL (6.4-8.2); Sodium Level 141 mmol/L (136-145)
--- NOTE | 2018-07-09 08:01 | NURSING ---
After administration of 2200 07/09/18 doses of Lantus, Humalog, Lopressor, Lipitor pt came diaphoretic and warm.
[2018-07-09] MEDS: Insulin Lispro 100 UNIT/ML INSULN.PEN 10 UNIT SC ×4 (09:35→21:14)
[2018-07-09] MEDS: Glucerna Shake 120 ML LIQUID PO ×3 (09:38→16:42)
[2018-07-09] MEDS: Aspirin E.C. 81 MG Tablet PO (09:38)
[2018-07-09] MEDS: Ascorbic Acid 500 MG Tablet PO (09:39)
[2018-07-09] MEDS: Gabapentin 300 MG Capsule PO ×2 (09:39→16:42)
[2018-07-09] MEDS: Losartan Potassium 25 MG Tablet PO (09:50)
[2018-07-09] MEDS: Metoprolol Tartrate 50 MG Tablet PO (09:51)
[2018-07-09] MEDS: Ferrous Sulfate 325 MG Tablet PO (11:36)
[2018-07-09 11:56] LABS: Bedside Glucose 121 mg/dL (70-110)
[2018-07-09] MEDS: Rivaroxaban 20 MG Tablet PO (16:42)
--- NOTE | 2018-07-09 18:03 | PCM.PN.HOSP ---
Patient Problems: Active and Suspected Problems (Last Updated 04/13/18 @ 19:54 by Blas Angeles MD) Chest pain (Acute) Right arm pain (Acute) Subjective: The patient is a 78 year old F with a history of CAD status post CABG, hypertension, diabetes and hypercholesterolemia. She also has a history of cervical spine stenosis and had a recent surgery due to cervical radiculopathy. She also has a history of BPPV. She was admitted on 07/07/2018 through the ED with a complaint of chest pain which started this afternoon while she was playing bingo with her friend she described as a stabbing chest pain which radiated to her right shoulder. The stress test was negative for any cardiac pain, spoken with case management patient needs precertification for assisted facility and will likely be here till Wednesday. Patient is still complaining of arm pain, but is improved with pain medications, patient denies any nausea vomiting diarrhea no re-onset of chest pain currently noted. Vitals/I&O's: Vital Signs Temp Pulse Resp BP Pulse Ox 97.9 F 53 L 18 128/41 H 95 07/09/18 14:39 07/09/18 15:07 07/09/18 14:39 07/09/18 14:39 07/09/18 14:39 Oxygen Flow Rate (L/min) 2 Oxygen Delivery Method Room Air Weight: 86 kg Body Mass Index (BMI) 32.5 Intake and Output for Last 24 Hours 07/07/18 07/08/18 07/09/18 23:59 23:59 23:59 Intake Total 240 / 240 1240 / 1240 725 / 725 Output Total 300 / 300 200 / 200 Balance 240 / 240 940 / 940 525 / 525 General: Alert, Oriented x3, Cooperative HEENT: Atraumatic, PERRLA, EOMI, Normocephalic Neck: Supple, No JVD, Negative Carotid Bruits Lungs: Clear to auscultation, Normal air movement Cardiovascular: Regular rate, No murmurs Abdomen: Bowel Sounds Present, Soft, Non Tender Extremities: No edema, Capillary Refill Less than 3 Seconds Skin: No rashes Musculoskeletal: Tenderness - Tenderness of movement of the right arm with decreased range of motion Lymphatic: No Cervical, Supraclavicular, or Inguinal Adenopathy Neurological: Cranial nerves II-XII grossly intact, Neuro grossly intact Psych/Mental Status: Normal Affect, Appropriate, Alert and oriented to time, place, person, mood and affect Laboratory Results 07/08/18 21:49: POC Glucose 164 H 07/09/18 06:25: WBC 8.3, RBC 3.46 L, Hgb 10.4 L, Hct 33.5 L, MCV 96.8, MCH 30.1, MCHC 31.0 L, RDW 14.4, RDW Differential 48.2 H, Plt Count 261, MPV 10.4, Immature Gran % (Auto) 0.200, Neut % (Auto) 58.0, Lymph % (Auto) 27.1, [place] % (Auto) 9.5, Eos % (Auto) 4.6, Baso % (Auto) 0.6, Absolute Neuts (auto) 4.8, Absolute Lymphs (auto) 2.26, Total Counted Not Reportable 07/09/18 06:25: Sodium 141, Potassium 4.6, Chloride 106, Carbon Dioxide 28.0, Anion Gap 7, BUN 21 H, Creatinine 1.18 H, Estim Creat Clear Calc 34.48, Est GFR (MDRD) Af Amer 57 L, Est GFR (MDRD) Non-Af 47 L, BUN/Creatinine Ratio 17.8, Glucose 83, Calcium 8.5, Phosphorus 5.1 H, Magnesium 2.2, Total Bilirubin 0.40, AST 24, ALT 30, Alkaline Phosphatase 75, Total Protein 6.4, Albumin 2.8 L, Globulin 3.6, Albumin/Globulin Ratio 0.8 L 07/09/18 06:51: POC Glucose 82 07/09/18 11:31: POC Glucose 121 H Current Medications Ascorbic Acid (Vitamin C) 500 mg PO DAILY@0800 [facility] Last Admin: 07/09/18 09:39 Dose: 500 mg [facility] Last Admin: 07/09/18 09:38 Dose: 81 mg Atorvastatin Calcium (Lipitor) [address] [facility] Last Admin: 07/08/18 21:54 Dose: 40 mg Ergocalciferol (Vitamin D) 50,000 unit PO [facility] Ferrous Sulfate (Ferrous Sulfate) 325 mg PO DAILY@1200 [facility] Last Admin: 07/09/18 11:36 Dose: 325 mg [facility]) [facility] Last Admin: 07/09/18 16:42 Dose: 300 mg Hydralazine HCl (Apresoline Iv) 5 mg IV Q4H PRN PRN PRN Reason: BLOOD PRESSURE ELEVATION Insulin Glargine (Lantus (Bkc)) [address] [facility] Last Admin: 07/08/18 21:54 Dose: 30 units Insulin Human Lispro (Humalog Kwikpen (Bkc)) 10 unit SC 4X/DAYCM [facility] Last Admin: 07/09/18 16:42 Dose: 10 units Levothyroxine Sodium (Synthroid) 112 mcg PO DAILY@0600 [facility] Last Admin: 07/09/18 05:15 Dose: 112 mcg Losartan Potassium (Cozaar) [address] [facility] Last Admin: 07/09/18 09:50 Dose: 25 mg Magnesium Hydroxide (Milk Of Magnesia) 30 ml PO DAILY PRN PRN PRN Reason: Constipation Metoprolol Tartrate (Lopressor (Beta Carloz)) [address] [facility] Last Admin: 07/09/18 09:51 Dose: 50 mg Morphine Sulfate () 1 mg IV Q3H PRN PRN PRN Reason: SEVERE PAIN (6-10/10) Last Admin: 07/08/18 13:54 Dose: 1 mg Nutritional Formula (Lactose Free) (Glucerna Shake) [address] [facility] Last Admin: 07/09/18 16:42 Dose: 120 ml Oxycodone HCl (Oxyir) 5 mg PO Q4H PRN PRN PRN Reason: SEVERE PAIN (6-10/10) Last Admin: 07/09/18 09:42 Dose: 5 mg Rivaroxaban (Xarelto) 20 mg PO DAILY@1700 [facility] Last Admin: 07/09/18 16:42 Dose: 20 mg Sodium Chloride () 5 - 30 ml IV UD PRN PRN Reason: SALINE FLUSH Last Admin: 07/08/18 13:55 Dose: 10 ml Medical Necessity - Tobacco Use Smoking Status: Never smoker Tobacco Use: Non-smoker Assessment/Plan All Active Problems (Last Updated 04/13/18 @ 19:54 by Blas Angeles MD) Chest pain (Acute) Right arm pain (Acute) Vertigo, peripheral (Resolved) Chest pain, unspecified (Acute) The patient is a 78 year old F with a history of CAD status post CABG, hypertension, diabetes and hypercholesterolemia. She also has a history of cervical spine stenosis and had a recent surgery due to cervical radiculopathy. She also has a history of BPPV. She was admitted on 07/07/2018 through the ED with a complaint of chest pain which started this afternoon while she was playing bingo with her friend she described as a stabbing chest pain which radiated to her right shoulder. Chest pain, With stress test negative. Seems to be related to patient's cervical radiculopathy and may be arthritis. Increased Neurontin to twice a day 300, and continue oxycodone. Likely will be discharged on Wednesday pending precertification according to case management. CAD status post CABG: On aspirin, statin and metoprolol. Right shoulder pain: Continue Tylenol and oxycodone, x-ray only shows degenerative changes, will continue PT OT. Diabetes mellitus: On Levemir 30 units subcu nightly and sliding scale Hypertension: On losartan and metoprolol we will add as needed hydralazine History of cervical spine stenosis status post surgery On gabapentin will increase for better pain control History of PE: had PE in 04/20. with CTA showing several small peripheral intraluminal filling defect involving pulmonary branches. On Xarelto. DVT on Xarelto CODE STATUS full Disposition patient will likely be in the hospital receiving physical therapy pain medications until precertification is done with likely transfer to assisted facility on Wednesday. Chart is dictated with automotive worker software. Errors may occur in dictation that may change providers meaning. This note was generated with N-Sided dictation software. It may contain incorrect words, spelling, and punctuation that were not noted in checking the note before signing.
--- NOTE | 2018-07-09 18:08 | PN_ITS ---
Patient Problems: Active and Suspected Problems (Last Updated 04/13/18 @ 19:54 by Blas Angeles MD) Chest pain (Acute) Right arm pain (Acute) Subjective: The patient is a 78 year old F with a history of CAD status post CABG, hypertension, diabetes and hypercholesterolemia. She also has a history of cervical spine stenosis and had a recent surgery due to cervical radiculopathy. She also has a history of BPPV. She was admitted on 07/07/2018 through the ED with a complaint of chest pain which started this afternoon while she was playing bingo with her friend she described as a stabbing chest pain which radiated to her right shoulder. The stress test was negative for any cardiac pain, spoken with case management patient needs precertification for penitentiary facility and will likely be here till Wednesday. Patient is still complaining of arm pain, but is improved with pain medications, patient denies any nausea vomiting diarrhea no re-onset of chest pain currently noted. Vitals/I&O's: Vital Signs Temp Pulse Resp BP Pulse Ox 97.9 F 53 L 18 128/41 H 95 07/09/18 14:39 07/09/18 15:07 07/09/18 14:39 07/09/18 14:39 07/09/18 14:39 Oxygen Flow Rate (L/min) 2 Oxygen Delivery Method Room Air Weight: 86 kg Body Mass Index (BMI) 32.5 Intake and Output for Last 24 Hours 07/07/18 07/08/18 07/09/18 23:59 23:59 23:59 Intake Total 240 / 240 1240 / 1240 725 / 725 Output Total 300 / 300 200 / 200 Balance 240 / 240 940 / 940 525 / 525 General: Alert, Oriented x3, Cooperative HEENT: Atraumatic, PERRLA, EOMI, Normocephalic Neck: Supple, No JVD, Negative Carotid Bruits Lungs: Clear to auscultation, Normal air movement Cardiovascular: Regular rate, No murmurs Abdomen: Bowel Sounds Present, Soft, Non Tender Extremities: No edema, Capillary Refill Less than 3 Seconds Skin: No rashes Musculoskeletal: Tenderness - Tenderness of movement of the right arm with decreased range of motion Lymphatic: No Cervical, Supraclavicular, or Inguinal Adenopathy Neurological: Cranial nerves II-XII grossly intact, Neuro grossly intact Psych/Mental Status: Normal Affect, Appropriate, Alert and oriented to time, place, person, mood and affect Laboratory Results 07/08/18 21:49: POC Glucose 164 H 07/09/18 06:25: WBC 8.3, RBC 3.46 L, Hgb 10.4 L, Hct 33.5 L, MCV 96.8, MCH 30.1, MCHC 31.0 L, RDW 14.4, RDW Differential 48.2 H, Plt Count 261, MPV 10.4, Immature Gran % (Auto) 0.200, Neut % (Auto) 58.0, Lymph % (Auto) 27.1, [place] % (Auto) 9.5, Eos % (Auto) 4.6, Baso % (Auto) 0.6, Absolute Neuts (auto) 4.8, Absolute Lymphs (auto) 2.26, Total Counted Not Reportable 07/09/18 06:25: Sodium 141, Potassium 4.6, Chloride 106, Carbon Dioxide 28.0, Anion Gap 7, BUN 21 H, Creatinine 1.18 H, Estim Creat Clear Calc 34.48, Est GFR (MDRD) Af Amer 57 L, Est GFR (MDRD) Non-Af 47 L, BUN/Creatinine Ratio 17.8, Glucose 83, Calcium 8.5, Phosphorus 5.1 H, Magnesium 2.2, Total Bilirubin 0.40, AST 24, ALT 30, Alkaline Phosphatase 75, Total Protein 6.4, Albumin 2.8 L, Globulin 3.6, Albumin/Globulin Ratio 0.8 L 07/09/18 06:51: POC Glucose 82 07/09/18 11:31: POC Glucose 121 H Current Medications Ascorbic Acid (Vitamin C) 500 mg PO DAILY@0800 [facility] Last Admin: 07/09/18 09:39 Dose: 500 mg [facility] ([facility]) [facility] Last Admin: 07/09/18 09:38 Dose: 81 mg Atorvastatin Calcium (Lipitor) 40 mg PO QHS [facility] Last Admin: 07/08/18 21:54 Dose: 40 mg Ergocalciferol (Vitamin D) 50,000 unit PO [facility] Ferrous Sulfate (Ferrous Sulfate) 325 mg PO DAILY@1200 [facility] Last Admin: 07/09/18 11:36 Dose: 325 mg Gabapentin (Neurontin) [facility] Last Admin: 07/09/18 16:42 Dose: 300 mg Hydralazine HCl (Apresoline Iv) 5 mg IV Q4H PRN PRN PRN Reason: BLOOD PRESSURE ELEVATION Insulin Glargine (Lantus (Bkc)) 30 units SC QHS [facility] Last Admin: 07/08/18 21:54 Dose: 30 units Insulin Human Lispro (Humalog Kwikpen (Bkc)) 10 unit SC 4X/DAYCM [facility] Last Admin: 07/09/18 16:42 Dose: 10 units Levothyroxine Sodium (Synthroid) 112 mcg PO DAILY@0600 [facility] Last Admin: 07/09/18 05:15 Dose: 112 mcg Losartan Potassium (Cozaar) 25 mg PO DAILY [facility] Last Admin: 07/09/18 09:50 Dose: 25 mg Magnesium Hydroxide (Milk Of Magnesia) 30 ml PO DAILY PRN PRN PRN Reason: Constipation Metoprolol Tartrate (Lopressor (Beta Carloz)) 50 mg PO BID [facility] Last Admin: 07/09/18 09:51 Dose: 50 mg Morphine Sulfate () 1 mg IV Q3H PRN PRN PRN Reason: SEVERE PAIN (6-10/10) Last Admin: 07/08/18 13:54 Dose: 1 mg Nutritional Formula (Lactose Free) (Glucerna Shake) 120 ml PO TIDCM [facility] Last Admin: 07/09/18 16:42 Dose: 120 ml Oxycodone HCl (Oxyir) 5 mg PO Q4H PRN PRN PRN Reason: SEVERE PAIN (6-10/10) Last Admin: 07/09/18 09:42 Dose: 5 mg Rivaroxaban (Xarelto) 20 mg PO DAILY@1700 [facility] Last Admin: 07/09/18 16:42 Dose: 20 mg Sodium Chloride () 5 - 30 ml IV UD PRN PRN Reason: SALINE FLUSH Last Admin: 07/08/18 13:55 Dose: 10 ml Medical Necessity - Tobacco Use Smoking Status: Never smoker Tobacco Use: Non-smoker Assessment/Plan All Active Problems (Last Updated 04/13/18 @ 19:54 by Blas Angeles MD) Chest pain (Acute) Right arm pain (Acute) Vertigo, peripheral (Resolved) Chest pain, unspecified (Acute) The patient is a 78 year old F with a history of CAD status post CABG, hypertension, diabetes and hypercholesterolemia. She also has a history of cervical spine stenosis and had a recent surgery due to cervical radiculopathy. She also has a history of BPPV. She was admitted on 07/07/2018 through the ED with a complaint of chest pain which started this afternoon while she was playing bingo with her friend she described as a stabbing chest pain which radiated to her right shoulder. Chest pain, With stress test negative. Seems to be related to patient's cervical radiculopathy and may be arthritis. Increased Neurontin to twice a day 300, and continue oxycodone. Likely will be discharged on Wednesday pending precertification according to case management. CAD status post CABG: On aspirin, statin and metoprolol. Right shoulder pain: Continue Tylenol and oxycodone, x-ray only shows degenerative changes, will continue PT OT. Diabetes mellitus: On Levemir 30 units subcu nightly and sliding scale Hypertension: On losartan and metoprolol we will add as needed hydralazine History of cervical spine stenosis status post surgery On gabapentin will increase for better pain control History of PE: had PE in 04/20. with CTA showing several small peripheral intraluminal filling defect involving pulmonary branches. On Xarelto. DVT on Xarelto CODE STATUS full Disposition patient will likely be in the hospital receiving physical therapy pain medications until precertification is done with likely transfer to penitentiary facility on Wednesday. Chart is dictated with coater operator insulation board software. Errors may occur in dictation that may change providers meaning. This note was generated with [email or web address] dictation software. It may contain incorrect words, spelling, and punctuation that were not noted in checking the note before signing.
[2018-07-09] MEDS: Atorvastatin Calcium 40 MG Tablet PO (21:14)
[2018-07-09 21:15] LABS: Bedside Glucose 125 mg/dL (70-110)
[2018-07-10] VITALS (13 sets, daily range): BP systolic 125–152; BP diastolic 49–81; PULSE 56–97; RESP 14–20; TEMP 36.6–36.9; O2SAT 93–97
[2018-07-10 01:01] LABS: Bedside Glucose 145 mg/dL (70-110)
[2018-07-10] MEDS: oxyCODONE 5 MG Tablet PO ×3 (03:26→22:15)
[2018-07-10] MEDS: Levothyroxine 112 MCG Tablet PO (05:33)
[2018-07-10 07:01] LABS: Bedside Glucose 143 mg/dL (70-110)
[2018-07-10] MEDS: Aspirin E.C. 81 MG Tablet PO (08:09)
[2018-07-10] MEDS: Glucerna Shake 120 ML LIQUID PO ×3 (08:09→16:57)
[2018-07-10] MEDS: Losartan Potassium 25 MG Tablet PO (08:10)
[2018-07-10] MEDS: Gabapentin 300 MG Capsule PO ×2 (08:10→17:00)
[2018-07-10] MEDS: Ascorbic Acid 500 MG Tablet PO (08:10)
[2018-07-10] MEDS: Insulin Lispro 100 UNIT/ML INSULN.PEN 10 UNIT SC ×4 (08:13→22:13)
--- NOTE | 2018-07-10 09:03 | PCM.PN.HOSP ---
Patient Problems: Active and Suspected Problems (Last Updated 04/13/18 @ 19:54 by Blas Angeles MD) Chest pain (Acute) Right arm pain (Acute) Subjective: The patient is a 78 year old F with a history of CAD status post CABG, hypertension, diabetes and hypercholesterolemia. She also has a history of cervical spine stenosis and had a recent surgery due to cervical radiculopathy. She also has a history of BPPV. She was admitted on 07/07/2018 through the ED with a complaint of chest pain which started this afternoon while she was playing bingo with her friend she described as a stabbing chest pain which radiated to her right shoulder. The stress test was negative for any cardiac pain, spoken with case management patient needs precertification for custodial facility and will likely be here till Wednesday. Patient evaluated today still having patient encouraged to increase mobilization and use pain medications. Vitals/I&O's: Vital Signs Temp Pulse Resp BP Pulse Ox 98.4 F 56 L 14 126/49 H 96 07/10/18 03:13 07/10/18 08:10 07/10/18 03:13 07/10/18 03:13 07/10/18 03:13 Oxygen Flow Rate (L/min) 2 Oxygen Delivery Method Room Air Weight: 86 kg Body Mass Index (BMI) 32.5 Intake and Output for Last 24 Hours 07/08/18 07/09/18 07/10/18 23:59 23:59 23:59 Intake Total 1240 / 1240 1275 / 1275 40 / 40 Output Total 300 / 300 200 / 200 Balance 940 / 940 1075 / 1075 40 / 40 General: Alert, Oriented x3, Cooperative HEENT: Atraumatic, PERRLA, EOMI Oral: Moist Mucosa, No Gingival or Mucosal Lesions/ Ulcerations Neck: Supple, No JVD, Negative Carotid Bruits Lungs: Clear to auscultation, Normal air movement Cardiovascular: Regular rate, Normal S1, Normal S2, No murmurs Abdomen: Bowel Sounds Present, Soft, Non Tender Extremities: No edema, Capillary Refill Less than 3 Seconds, Tenderness - Tenderness on range of motion of the right arm Musculoskeletal: Tenderness - As above tenderness right arm motion Lymphatic: No Cervical, Supraclavicular, or Inguinal Adenopathy Neurological: Cranial nerves II-XII grossly intact Psych/Mental Status: Normal Affect, Appropriate, Alert and oriented to time, place, person, mood and affect Laboratory Results 07/09/18 11:31: POC Glucose 121 H 07/09/18 16:41: POC Glucose 125 H 07/09/18 21:12: POC Glucose 145 H 07/10/18 06:48: POC Glucose 143 H Current Medications Ascorbic Acid (Vitamin C) 500 mg PO DAILY@0800 [facility] Last Admin: 07/10/18 08:10 Dose: 500 mg [facility]ir[facility] (Ecotrin) [facility] Last Admin: 07/10/18 08:09 Dose: 81 mg Atorvastatin Calcium (Lipitor) 40 mg PO QHS [facility] Last Admin: 07/09/18 21:14 Dose: 40 mg Ergocalciferol (Vitamin D) 50,000 unit PO [facility] Ferrous Sulfate (Ferrous Sulfate) 325 mg PO DAILY@1200 [facility] Last Admin: 07/09/18 11:36 Dose: 325 mg Gabapentin (Neurontin) [facility] Last Admin: 07/10/18 08:10 Dose: 300 mg Hydralazine HCl (Apresoline Iv) 5 mg IV Q4H PRN PRN PRN Reason: BLOOD PRESSURE ELEVATION Insulin Glargine (Lantus (Bkc)) 30 units SC QHS [facility] Last Admin: 07/09/18 21:14 Dose: 30 units Insulin Human Lispro (Humalog Kwikpen (Bkc)) 10 [facility] SC [facility] Last Admin: 07/10/18 08:13 Dose: 10 units Levothyroxine Sodium (Synthroid) 112 mcg PO DAILY@0600 [facility] Last Admin: 07/10/18 05:33 Dose: 112 mcg Losartan Potassium (Cozaar) 25 mg PO DAILY [facility] Last Admin: 07/10/18 08:10 Dose: 25 mg Magnesium Hydroxide (Milk Of Magnesia) 30 ml PO DAILY PRN PRN PRN Reason: Constipation Metoprolol Tartrate (Lopressor (Beta Carloz)) 50 mg PO BID [facility] Last Admin: 07/10/18 08:10 Dose: Not Given Morphine Sulfate () 1 mg IV Q3H PRN PRN PRN Reason: SEVERE PAIN (6-10/10) Last Admin: 07/08/18 13:54 Dose: 1 mg Nutritional Formula (Lactose Free) (Glucerna Shake) 120 ml PO TIDCM [facility] Last Admin: 07/10/18 08:09 Dose: 120 ml Oxycodone HCl (Oxyir) 5 mg PO Q4H PRN PRN PRN Reason: SEVERE PAIN (6-10) Last Admin: 07/10/18 08:13 Dose: 5 mg Rivaroxaban (Xarelto) 20 mg PO DAILY@1700 [facility] Last Admin: 07/09/18 16:42 Dose: 20 mg Sodium Chloride () 5 - 30 ml IV UD PRN PRN Reason: SALINE FLUSH Last Admin: 07/08/18 13:55 Dose: 10 ml Medical Necessity - Tobacco Use Smoking Status: Never smoker Tobacco Use: Non-smoker Assessment/Plan All Active Problems (Last Updated 04/13/18 @ 19:54 by Blas Angeles MD) Chest pain (Acute) Right arm pain (Acute) Vertigo, peripheral (Resolved) Chest pain, unspecified (Acute) The patient is a 78 year old F with a history of CAD status post CABG, hypertension, diabetes and hypercholesterolemia. She also has a history of cervical spine stenosis and had a recent surgery due to cervical radiculopathy. She also has a history of BPPV. She was admitted on 07/07/2018 through the ED with a complaint of chest pain which started this afternoon while she was playing bingo with her friend she described as a stabbing chest pain which radiated to her right shoulder. Chest pain, With stress test negative. Seems to be related to patient's cervical radiculopathy and may be arthritis. Increased Neurontin to twice a day 300, and continue oxycodone. Likely will be discharged on Wednesday pending precertification according to case management. We will not increase pain medications currently, increased encourage patient to utilize and work with physical therapy. CAD status post CABG: On aspirin, statin and metoprolol. Right shoulder pain: Continue Tylenol and oxycodone, will continue PT OT. Diabetes mellitus: On Levemir 30 units subcu nightly and sliding scale, blood sugars have been less than 150 we will continue current therapy. Hypertension: On losartan and metoprolol as needed hydralazine History of cervical spine stenosis status post surgery Increase gabapentin several days ago better control of pain. History of PE: had PE in 04/20. with CTA showing several small peripheral intraluminal filling defect involving pulmonary branches. On Xarelto. DVT on Xarelto CODE STATUS full Disposition patient will likely be in the hospital receiving physical therapy pain medications until precertification is done with likely transfer to custodial facility on Wednesday. Chart is dictated with rattlesnake farmer software. Errors may occur in dictation that may change providers meaning. This note was generated with [employer] dictation software. It may contain incorrect words, spelling, and punctuation that were not noted in checking the note before signing. Code Visit Inpatient E&M: 83825 Init Hosp L2
--- NOTE | 2018-07-10 09:07 | PN_ITS ---
Patient Problems: Active and Suspected Problems (Last Updated 04/13/18 @ 19:54 by Blas Angeles MD) Chest pain (Acute) Right arm pain (Acute) Subjective: The patient is a 78 year old F with a history of CAD status post CABG, hypertension, diabetes and hypercholesterolemia. She also has a history of cervical spine stenosis and had a recent surgery due to cervical radiculopathy. She also has a history of BPPV. She was admitted on 07/07/2018 through the ED with a complaint of chest pain which started this afternoon while she was playing bingo with her friend she described as a stabbing chest pain which radiated to her right shoulder. The stress test was negative for any cardiac pain, spoken with case management patient needs precertification for correction facility and will likely be here till Wednesday. Patient evaluated today still having patient encouraged to increase mobilization and use pain medications. Vitals/I&O's: Vital Signs Temp Pulse Resp BP Pulse Ox 98.4 F 56 L 14 126/49 H 96 07/10/18 03:13 07/10/18 08:10 07/10/18 03:13 07/10/18 03:13 07/10/18 03:13 Oxygen Flow Rate (L/min) 2 Oxygen Delivery Method Room Air Weight: 86 kg Body Mass Index (BMI) 32.5 Intake and Output for Last 24 Hours 07/08/18 07/09/18 07/10/18 23:59 23:59 23:59 Intake Total 1240 / 1240 1275 / 1275 40 / 40 Output Total 300 / 300 200 / 200 Balance 940 / 940 1075 / 1075 40 / 40 General: Alert, Oriented x3, Cooperative HEENT: Atraumatic, PERRLA, EOMI Oral: Moist Mucosa, No Gingival or Mucosal Lesions/ Ulcerations Neck: Supple, No JVD, Negative Carotid Bruits Lungs: Clear to auscultation, Normal air movement Cardiovascular: Regular rate, Normal S1, Normal S2, No murmurs Abdomen: Bowel Sounds Present, Soft, Non Tender Extremities: No edema, Capillary Refill Less than 3 Seconds, Tenderness - Tenderness on range of motion of the right arm Musculoskeletal: Tenderness - As above tenderness right arm motion Lymphatic: No Cervical, Supraclavicular, or Inguinal Adenopathy Neurological: Cranial nerves II-XII grossly intact Psych/Mental Status: Normal Affect, Appropriate, Alert and oriented to time, place, person, mood and affect Laboratory Results 07/09/18 11:31: POC Glucose 121 H 07/09/18 16:41: POC Glucose 125 H 07/09/18 21:12: POC Glucose 145 H 07/10/18 06:48: POC Glucose 143 H Current Medications Ascorbic Acid (Vitamin C) 500 mg PO DAILY@0800 [facility] Last Admin: 07/10/18 08:10 Dose: 500 mg [facility]irin (Ecotrin) [facility] Last Admin: 07/10/18 08:09 Dose: 81 mg Atorvastatin Calcium (Lipitor) 40 mg PO QHS [facility] Last Admin: 07/09/18 21:14 Dose: 40 mg Ergocalciferol (Vitamin D) 50,[address] [facility] Ferrous Sulfate (Ferrous Sulfate) 325 mg PO DAILY@1200 [facility] Last Admin: 07/09/18 11:36 Dose: 325 mg Gabapentin (Neurontin) [facility] Last Admin: 07/10/18 08:10 Dose: 300 mg Hydralazine HCl (Apresoline Iv) 5 mg IV Q4H PRN PRN PRN Reason: BLOOD PRESSURE ELEVATION Insulin Glargine (Lantus (Bkc)) 30 units SC QHS [facility] Last Admin: 07/09/18 21:14 Dose: 30 units Insulin Human Lispro (Humalog Kwikpen (Bkc)) 10 unit SC [facility] Last Admin: 07/10/18 08:13 Dose: 10 units Levothyroxine Sodium (Synthroid) 112 mcg PO DAILY@0600 [facility] Last Admin: 07/10/18 05:33 Dose: 112 mcg Losartan Potassium (Cozaar) 25 mg PO DAILY [facility] Last Admin: 07/10/18 08:10 Dose: 25 mg Magnesium Hydroxide (Milk Of Magnesia) 30 ml PO DAILY PRN PRN PRN Reason: Constipation Metoprolol Tartrate (Lopressor (Beta Carloz)) 50 mg PO BID [facility] Last Admin: 07/10/18 08:10 Dose: Not Given Morphine Sulfate () 1 mg IV Q3H PRN PRN PRN Reason: SEVERE PAIN (6-10/10) Last Admin: 07/08/18 13:54 Dose: 1 mg Nutritional Formula (Lactose Free) (Glucerna Shake) 120 ml PO TIDCM [facility] Last Admin: 07/10/18 08:09 Dose: 120 ml Oxycodone HCl (Oxyir) 5 mg PO Q4H PRN PRN PRN Reason: SEVERE PAIN (6-10) Last Admin: 07/10/18 08:13 Dose: 5 mg Rivaroxaban (Xarelto) 20 mg PO DAILY@1700 [facility] Last Admin: 07/09/18 16:42 Dose: 20 mg Sodium Chloride () 5 - 30 ml IV UD PRN PRN Reason: SALINE FLUSH Last Admin: 07/08/18 13:55 Dose: 10 ml Medical Necessity - Tobacco Use Smoking Status: Never smoker Tobacco Use: Non-smoker Assessment/Plan All Active Problems (Last Updated 04/13/18 @ 19:54 by Blas Angeles MD) Chest pain (Acute) Right arm pain (Acute) Vertigo, peripheral (Resolved) Chest pain, unspecified (Acute) The patient is a 78 year old F with a history of CAD status post CABG, hypertension, diabetes and hypercholesterolemia. She also has a history of cervical spine stenosis and had a recent surgery due to cervical radiculopathy. She also has a history of BPPV. She was admitted on 07/07/2018 through the ED with a complaint of chest pain which started this afternoon while she was playing bingo with her friend she described as a stabbing chest pain which radiated to her right shoulder. Chest pain, With stress test negative. Seems to be related to patient's cervical radiculopathy and may be arthritis. Increased Neurontin to twice a day 300, and continue oxycodone. Likely will be discharged on Wednesday pending precertification according to case management. We will not increase pain medications currently, increased encourage patient to utilize and work with physical therapy. CAD status post CABG: On aspirin, statin and metoprolol. Right shoulder pain: Continue Tylenol and oxycodone, will continue PT OT. Diabetes mellitus: On Levemir 30 units subcu nightly and sliding scale, blood sugars have been less than 150 we will continue current therapy. Hypertension: On losartan and metoprolol as needed hydralazine History of cervical spine stenosis status post surgery Increase gabapentin several days ago better control of pain. History of PE: had PE in 04/20. with CTA showing several small peripheral intraluminal filling defect involving pulmonary branches. On Xarelto. DVT on Xarelto CODE STATUS full Disposition patient will likely be in the hospital receiving physical therapy pain medications until precertification is done with likely transfer to correction facility on Wednesday. Chart is dictated with tool and cutter grinder software. Errors may occur in dictation that may change providers meaning. This note was generated with [employer] dictation software. It may contain incorrect words, spelling, and punctuation that were not noted in checking the note before signing. Code Visit Inpatient E&M: 17891 Init Hosp L2
[2018-07-10] MEDS: Ferrous Sulfate 325 MG Tablet PO (11:27)
[2018-07-10 12:16] LABS: Bedside Glucose 75 mg/dL (70-110)
[2018-07-10] MEDS: Rivaroxaban 20 MG Tablet PO (16:57)
[2018-07-10 17:36] LABS: Bedside Glucose 183 mg/dL (70-110)
[2018-07-10] MEDS: Metoprolol Tartrate 50 MG Tablet PO (22:14)
[2018-07-10] MEDS: Atorvastatin Calcium 40 MG Tablet PO (22:14)
[2018-07-10] MEDS: Magnesium Hydroxide 30 ML UDC PO (22:15)
[2018-07-11] VITALS (7 sets, daily range): BP systolic 126–147; BP diastolic 61–86; PULSE 56–64; RESP 15–16; TEMP 36.6–37.1; O2SAT 95–97
[2018-07-11 00:31] LABS: Bedside Glucose 168 mg/dL (70-110)
[2018-07-11] MEDS: oxyCODONE 5 MG Tablet PO ×3 (03:18→14:30)
[2018-07-11] MEDS: Levothyroxine 112 MCG Tablet PO (05:25)
[2018-07-11 06:12] LABS: Absolute Lymphocyte Count 2.84 X10^3/ul (0.83-4.51); Absolute Neutrophil Count 4.3 X10^3/uL (2.0-7.7); Basophil# 0.06 X10^3/uL; Basophil% 0.7 % (0-1); Eosinophil# 0.46 X10^3/uL; Eosinophils% 5.5 % (0-5); Hematocrit 34.3 % (37-47); Hemoglobin 10.7 g/dl (12.0-15.0); Lymphocyte # 2.84 X10^3/ul (4.0); Mean Corp Hgb Conc 31.2 g/gl (32-36); Mean Corpuscular Hgb 30.1 pg (27.0-32.0); Mean Corpuscular Volume 96.3 fL (81-99); Monocyte# 0.69 X10^3/uL; Monocyte% 8.3 % (0-10); Neutrophil % 51.4 % (47-70); Platelet Count 262 K/mm3 (150-450); RBC Distribution Width CV 14.6 % (11.6-14.6); RBC Distribution Width SD 49.3 fl (35.1-43.9); Red Blood Count 3.56 M/mm3 (4.2-5.4); White Blood Count 8.4 K/mm3 (4.4-11.0)
[2018-07-11 06:28] LABS: BUN 28 mg/dL (7-18); Creatinine, Serum 1.27 mg/dL (0.55-1.02); EST Glomerular Filtration Rate 43 mL/min (>60); Estimated Creatinine Clearance 32.03 ml/min; Glucose 87 mg/dL (74-106)
[2018-07-11 06:29] LABS: Anion Gap 7 (5-15); Calcium,Total 8.4 mg/dL (8.5-10.1); Chloride 104 mmol/L (98-107); Est Glom Filt Rate - Afr Amer 52 mL/min (>60); Magnesium 2.2 mg/dL (1.6-2.6); Phosphorus 4.4 mg/dL (2.5-4.9); Potassium 4.5 mmol/L (3.5-5.1); Sodium Level 140 mmol/L (136-145)
[2018-07-11 06:36] LABS: POSITIVE COUNT NO; POSITIVE DIFFERENTIAL NO; POSITIVE MORPHOLOGY NO
[2018-07-11 07:15] LABS: Bedside Glucose 93 mg/dL (70-110)
[2018-07-11] MEDS: Glucerna Shake 120 ML LIQUID PO ×2 (08:35→11:52)
[2018-07-11] MEDS: Insulin Lispro 100 UNIT/ML INSULN.PEN 10 UNIT SC ×2 (08:35→11:52)
[2018-07-11] MEDS: Aspirin E.C. 81 MG Tablet PO (08:35)
[2018-07-11] MEDS: Gabapentin 300 MG Capsule PO (08:36)
[2018-07-11] MEDS: Ascorbic Acid 500 MG Tablet PO (08:36)
[2018-07-11] MEDS: Losartan Potassium 25 MG Tablet PO (08:36)
[2018-07-11] MEDS: Metoprolol Tartrate 50 MG Tablet PO (08:36)
--- NOTE | 2018-07-11 11:01 | PCM.EXTCARCO ---
- Diet 07/08/18 10:07 Diet: Cardiac/Low Cholesterol Is pt able to select menu?: Yes - Routine Orders/Code Status Enema Type: Fleetz Enema Frequency: Daily PRN Suppository Type: Dulcolax 10mg Suppository Frequency: Daily PRN O2 Liters per Minute: 2 O2 Frequency: PRN Keep PO Greater than or Equal to (%): 90 Routine Lab Work: CBC, BMP, - - Q Week Code Status: Full Code - Suggestions for Active Care Change Position every (hours): 2 Times a day to sit in chair: 3 - Therapies Physical Therapy: Eval and Treat Occupational Therapy: Eval and Treat - Problem/Diagnosis (1) Chest pain Status: Acute Comment: Non-cardiac Current Visit: Yes (2) Right arm pain Status: Acute Current Visit: Yes (3) Type 2 diabetes mellitus Status: Chronic Current Visit: No (4) HTN (hypertension) Status: Chronic Current Visit: No (5) CAD (coronary artery disease) Status: Chronic Current Visit: No (6) Hx of CABG Status: Chronic Current Visit: No (7) Cervical radicular pain Status: Chronic Current Visit: No - Allergies/Procedures Done in Hospital Allergies/Adverse Reactions: Allergies orange juice Allergy (Verified 07/07/18 13:09) Hives Penicillins Allergy (Verified 07/07/18 13:09) Anaphylaxis strawberry Allergy (Verified 07/07/18 13:09) Hives acetaminophen Adverse Reaction (Verified 07/07/18 13:09) Vomiting Sulfa (Sulfonamide Antibiotics) Adverse Reaction (Verified 07/07/18 13:09) Vomiting Procedures: Stress Test - Type of Care/Length of Stay Estimated LOS: Convalescent Care Less Than 30 days Type of Care Needed: Skilled Rehab Potential: Fair Prognosis: Fair - Additional Orders/Day of Discharge H&P will serve as current which was dated: 07/07/18 Day of Discharge: 07/11/18 - Dietary and Speech Recommendations Dietitian Recommendations/Changes: Suggest diet change to 1800 lucero/cardiac. Continue glucerna shake on medpass for now. - Follow Up Care Primary Care Physician: Angus Chapa, [employer] [facility] [Primary Care Provider] - Please follow up with your Primary Care Physician in: 1 Week
--- NOTE | 2018-07-11 11:07 | PCM.DC.SUM ---
<Shavon Bradley - Last Filed: 07/11/18 11:18> Discharge Date and Diagnosis Date of Admission: 07/07/18 Date of Discharge: 07/11/18 - Primary Discharge Diagnosis Active and Suspected Problems (Last Updated 04/13/18 @ 19:54 by Blas Angeles MD) 1. Noncardiac chest pain, musculoskeletal in nature 2. Right shoulder pain/cervical radiculopathy 3. CAD status post CABG 4. Type 2 diabetes mellitus 5. Hypertension 6. History of PE 7. Chronic kidney disease stage III - Secondary Discharge Diagnosis Chronic Problems (Last Updated 04/13/18 @ 19:54 by Blas Angeles MD) Type 2 diabetes mellitus (Chronic) HTN (hypertension) (Chronic) CAD (coronary artery disease) (Chronic) Hx of CABG (Chronic) Carpal tunnel syndrome on right (Chronic) Cervical radicular pain (Chronic) Hospital Course and Treatment Imaging Results: Diagnostic Data Chest X-Ray 07/07/18 13:27 IMPRESSION: Status post CABG. No acute abnormality is seen. Electronically Signed: Jens Thurman MD at 13:54 EDT Tel [phone], Service support , Shoulder X-Ray 07/07/18 17:00 IMPRESSION: 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 Electronically Signed: Luisito Harper DO at 17:17 EDT Tel [phone], Service support , Operations: None Procedures: Stress test Summary of Care Provided: The patient is a 78 year old F admitted 07/07/2018 due to chest pain and right arm pain. She has a past medical history of CAD status post CABG, hypertension, type 2 diabetes mellitus, history of PE on anticoagulation with Xarelto, history of cervical spine stenosis status post surgery, chronic kidney disease stage III. EKG without ST-T changes. Troponin negative. Patient underwent stress test which was negative for ischemia. X-ray of the right shoulder shows stable degenerative changes of the right shoulder. Suspect pain is musculoskeletal in nature, secondary to cervical radiculopathy and degenerative changes of the right shoulder. ACS ruled out. Home gabapentin regimen increased to 300 mg twice daily. Patient can continue as needed pain regimen at discharge to SNF as well as continued PT/OT. Follow-up with primary care physician in 1 week. General: Alert, Oriented x3, Cooperative HEENT: Atraumatic, PERRLA, EOMI Oral: Moist Mucosa, No Gingival or Mucosal Lesions/ Ulcerations Neck: Supple, No JVD, Negative Carotid Bruits Lungs: Clear to auscultation, Normal air movement Cardiovascular: Regular rate, Normal S1, Normal S2, No murmurs Abdomen: Bowel Sounds Present, Soft, Non Tender Extremities: No edema, Capillary Refill Less than 3 Seconds Musculoskeletal: Right shoulder tenderness, increased with range of motion Lymphatic: No Cervical, Supraclavicular, or Inguinal Adenopathy Neurological: Cranial nerves II-XII grossly intact Psych/Mental Status: Normal Affect, Appropriate Patient seen exam prior to discharge. Physical assessment as noted above. Patient stable for discharge to SNF with follow-up with primary care physician in 1 week. This patient was seen by HIMANSHU Marquez under the supervision of Dr. Kowalski. - Physical Exam Vital Signs Temp Pulse Resp BP Pulse Ox 98.7 F 58 L 16 145/86 H 97 07/11/18 08:36 07/11/18 10:46 07/11/18 08:36 07/11/18 08:36 07/11/18 08:36 Oxygen Flow Rate (L/min) 2 Oxygen Delivery Method Room Air Weight: 189 lb 9.561 oz Body Mass Index (BMI) 32.5 Intake and Output for Last 24 Hours 07/09/18 07/10/18 07/11/18 23:59 23:59 23:59 Intake Total 1275 / 1275 1115 / 1115 60 / 60 Output Total 200 / 200 Balance 1075 / 1075 1115 / 1115 60 / 60 Laboratory Tests Past 24 Hrs 07/11/18 07/11/18 05:35 05:35 WBC 8.4 RBC 3.56 L Hgb 10.7 L Hct 34.3 L MCV 96.3 MCH 30.1 MCHC 31.2 L RDW 14.6 RDW Differential 49.3 H Plt Count 262 MPV 11.0 Immature Gran % (Auto) 0.100 Neut % (Auto) 51.4 Lymph % (Auto) 34.0 [place] % (Auto) 8.3 Eos % (Auto) 5.5 H Baso % (Auto) 0.7 Absolute Neuts (auto) 4.3 Absolute Lymphs (auto) 2.84 Total Counted Not Reportable Sodium 140 Potassium 4.5 Chloride 104 Carbon Dioxide 29.0 Anion Gap 7 BUN 28 H Creatinine 1.27 H Estim Creat Clear Calc 32.03 Est GFR (MDRD) Af Amer 52 L Est GFR (MDRD) Non-Af 43 L BUN/Creatinine Ratio 22.0 H Glucose 87 Calcium 8.4 L Phosphorus 4.4 Magnesium 2.2 POC Glucose 07/11/18 07/10/18 07/10/18 06:45 22:08 16:59 POC Glucose 93 168 H 183 H 07/10/18 11:28 POC Glucose 75 Home Medications: Medications to take at Discharge Aspirin E.C. [Ecotrin] 81 mg PO DAILY 03/17/18 Atorvastatin Calcium 40 mg PO DAILY 03/17/18 Ergocalciferol [Vitamin D] 50,000 unit PO MO 03/17/18 Ferrous Sulfate [Iron] 325 mg PO DAILY 03/17/18 Levothyroxine Sodium [Synthroid] 112 mcg PO DAILY 03/17/18 Losartan Potassium [Cozaar] 25 mg PO DAILY 03/17/18 Insulin Glargine,Hum.rec.anlog [Basaglar Kwikpen U-100] 30 unit SQ QHS 04/13/18 Ascorbic Acid [Vitamin C] 500 mg PO DAILY@0800 07/07/18 Insulin Aspart [Novolog Flexpen] 10 units SQ 4X/DAY 07/07/18 Insulin Aspart [Novolog Flexpen] See Protocol SQ .COMPLEX 07/07/18 Metoprolol Tartrate [Lopressor (beta aleida)] 50 mg PO BID 07/07/18 Rivaroxaban [Xarelto] 20 mg PO DAILY 07/07/18 Gabapentin [Neurontin] 300 mg PO BIDCM capsule 07/11/18 Oxycodone [Oxyir] 5 mg PO Q4H PRN PRN 2 Days #10 tab 07/11/18 Following Prescrptions Were Given to Patient: Oxycodone [Oxyir] 5 mg PO Q4H PRN PRN 2 Days #10 tab PRN Reason: Severe Pain (6-06/22) Primary Care Physician: Angus Chapa NP-C [Primary Care Provider] - Please follow up with your Primary Care Physician in: 1 Week Disposition: Long-Term facility Minutes spent on discharge:: 35 Patient Condition:: Stable Medical Necessity - Tobacco Use Smoking Status: Never smoker Tobacco Use: Non-smoker Meaningful Use Info Meaningful Use Diagnoses (Choose all that apply): None applicable <DexDirk - Last Filed: 07/11/18 16:52> Discharge Date and Diagnosis - Secondary Discharge Diagnosis Chronic Problems (Last Updated 04/13/18 @ 19:54 by Blas Angeles MD) Type 2 diabetes mellitus (Chronic) HTN (hypertension) (Chronic) CAD (coronary artery disease) (Chronic) Hx of CABG (Chronic) Carpal tunnel syndrome on right (Chronic) Cervical radicular pain (Chronic) Hospital Course and Treatment Operations: None Procedures: Stress test Summary of Care Provided: Patient seen and examined independently. Data reviewed. I agree with the above note by the nurse practitioner. The patient is a 78 year old F presents with chest pain. Patient underwent a stress test that was unremarkable. Patient has right arm pain and paresthesias of her right upper extremity. Patient has known radicular symptoms and was seeing a neurosurgeon at [facility]. Patient will need to follow-up with neurosurgery or spine surgery for further follow-up. It is unclear to me if that particular surgeon, Dr. Garcia, will be able to practice. Therefore patient will need to follow-up with another surgeon if he is able to do so. Patient still does have discoordination of her right upper extremity. Patient will need to continue with physical and occupational therapy. [] - Physical Exam General: Alert, Cooperative, No apparent distress HEENT: Atraumatic, Normocephalic Oral: Moist Mucosa, No Gingival or Mucosal Lesions/ Ulcerations Neurological: - - ataxia of RUE. Psych/Mental Status: Normal Affect, Appropriate Vital Signs Temp Pulse Resp BP Pulse Ox 36.9 C 60 16 126/71 H 95 07/11/18 14:36 07/11/18 14:54 07/11/18 14:36 07/11/18 14:36 07/11/18 14:36 Oxygen Flow Rate (L/min) 2 Oxygen Delivery Method Room Air Weight: 86 kg Body Mass Index (BMI) 32.5 Intake and Output for Last 24 Hours 07/09/18 07/10/18 07/11/18 23:59 23:59 23:59 Intake Total 1275 / 1275 1115 / 1115 520 / 520 Output Total 200 / 200 Balance 1075 / 1075 1115 / 1115 520 / 520 Laboratory Tests Past 24 Hrs 07/11/18 07/11/18 05:35 05:35 WBC 8.4 RBC 3.56 L Hgb 10.7 L Hct 34.3 L MCV 96.3 MCH 30.1 MCHC 31.2 L RDW 14.6 RDW Differential 49.3 H Plt Count 262 MPV 11.0 Immature Gran % (Auto) 0.100 Neut % (Auto) 51.4 Lymph % (Auto) 34.0 [place] % (Auto) 8.3 Eos % (Auto) 5.5 H Baso % (Auto) 0.7 Absolute Neuts (auto) 4.3 Absolute Lymphs (auto) 2.84 Total Counted Not Reportable Sodium 140 Potassium 4.5 Chloride 104 Carbon Dioxide 29.0 Anion Gap 7 BUN 28 H Creatinine 1.27 H Estim Creat Clear Calc 32.03 Est GFR (MDRD) Af Amer 52 L Est GFR (MDRD) Non-Af 43 L BUN/Creatinine Ratio 22.0 H Glucose 87 Calcium 8.4 L Phosphorus 4.4 Magnesium 2.2 POC Glucose 07/11/18 07/11/18 07/10/18 10:59 06:45 22:08 POC Glucose 140 H 93 168 H 07/10/18 16:59 POC Glucose 183 H Discharge Diet: No Restrictions Discharge Activity: Return to Normal Activity Disposition: Long-Term facility Minutes spent on discharge:: 35 Patient Condition:: Stable Meaningful Use Info Meaningful Use Diagnoses (Choose all that apply): None applicable Code Visit Inpatient E&M: 54520 Disch Hosp
[2018-07-11 11:16] LABS: Bedside Glucose 140 mg/dL (70-110)
--- NOTE | 2018-07-11 11:16 | DS.PCM_ITS ---
<Shavon Bradley - Last Filed: 07/11/18 11:18> Discharge Date and Diagnosis Date of Admission: 07/07/18 Date of Discharge: 07/11/18 - Primary Discharge Diagnosis Active and Suspected Problems (Last Updated 04/13/18 @ 19:54 by Blas Angeles MD) 1. Noncardiac chest pain, musculoskeletal in nature 2. Right shoulder pain/cervical radiculopathy 3. CAD status post CABG 4. Type 2 diabetes mellitus 5. Hypertension 6. History of PE 7. Chronic kidney disease stage III - Secondary Discharge Diagnosis Chronic Problems (Last Updated 04/13/18 @ 19:54 by Blas Angeles MD) Type 2 diabetes mellitus (Chronic) HTN (hypertension) (Chronic) CAD (coronary artery disease) (Chronic) Hx of CABG (Chronic) Carpal tunnel syndrome on right (Chronic) Cervical radicular pain (Chronic) Hospital Course and Treatment Imaging Results: Diagnostic Data Chest X-Ray 07/07/18 13:27 IMPRESSION: Status post CABG. No acute abnormality is seen. Electronically Signed: Jens Thurman MD at 13:54 EDT Tel [phone], Service support , Shoulder X-Ray 07/07/18 17:00 IMPRESSION: 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 Electronically Signed: Luisito Harper DO at 17:17 EDT Tel [phone], Service support , Operations: None Procedures: Stress test Summary of Care Provided: The patient is a 78 year old F admitted 07/07/2018 due to chest pain and right arm pain. She has a past medical history of CAD status post CABG, hypertension, type 2 diabetes mellitus, history of PE on anticoagulation with Xarelto, history of cervical spine stenosis status post surgery, chronic kidney disease stage III. EKG without ST-T changes. Troponin negative. Patient underwent stress test which was negative for ischemia. X-ray of the right shoulder shows stable degenerative changes of the right shoulder. Suspect pain is musculoskeletal in nature, secondary to cervical radiculopathy and degenerative changes of the right shoulder. ACS ruled out. Home gabapentin regimen increased to 300 mg twice daily. Patient can continue as needed pain regimen at discharge to SNF as well as continued PT/OT. Follow-up with primary care physician in 1 week. General: Alert, Oriented x3, Cooperative HEENT: Atraumatic, PERRLA, EOMI Oral: Moist Mucosa, No Gingival or Mucosal Lesions/ Ulcerations Neck: Supple, No JVD, Negative Carotid Bruits Lungs: Clear to auscultation, Normal air movement Cardiovascular: Regular rate, Normal S1, Normal S2, No murmurs Abdomen: Bowel Sounds Present, Soft, Non Tender Extremities: No edema, Capillary Refill Less than 3 Seconds Musculoskeletal: Right shoulder tenderness, increased with range of motion Lymphatic: No Cervical, Supraclavicular, or Inguinal Adenopathy Neurological: Cranial nerves II-XII grossly intact Psych/Mental Status: Normal Affect, Appropriate Patient seen exam prior to discharge. Physical assessment as noted above. Patient stable for discharge to SNF with follow-up with primary care physician in 1 week. This patient was seen by HIMANSHU Marquez under the supervision of Dr. Kowalski. - Physical Exam Vital Signs Temp Pulse Resp BP Pulse Ox 98.7 F 58 L 16 145/86 H 97 07/11/18 08:36 07/11/18 10:46 07/11/18 08:36 07/11/18 08:36 07/11/18 08:36 Oxygen Flow Rate (L/min) 2 Oxygen Delivery Method Room Air Weight: 189 lb 9.561 oz Body Mass Index (BMI) 32.5 Intake and Output for Last 24 Hours 07/09/18 07/10/18 07/11/18 23:59 23:59 23:59 Intake Total 1275 / 1275 1115 / 1115 60 / 60 Output Total 200 / 200 Balance 1075 / 1075 1115 / 1115 60 / 60 Laboratory Tests Past 24 Hrs 07/11/18 07/11/18 05:35 05:35 WBC 8.4 RBC 3.56 L Hgb 10.7 L Hct 34.3 L MCV 96.3 MCH 30.1 MCHC 31.2 L RDW 14.6 RDW Differential 49.3 H Plt Count 262 MPV 11.0 Immature Gran % (Auto) 0.100 Neut % (Auto) 51.4 Lymph % (Auto) 34.0 [place] % (Auto) 8.3 Eos % (Auto) 5.5 H Baso % (Auto) 0.7 Absolute Neuts (auto) 4.3 Absolute Lymphs (auto) 2.84 Total Counted Not Reportable Sodium 140 Potassium 4.5 Chloride 104 Carbon Dioxide 29.0 Anion Gap 7 BUN 28 H Creatinine 1.27 H Estim Creat Clear Calc 32.03 Est GFR (MDRD) Af Amer 52 L Est GFR (MDRD) Non-Af 43 L BUN/Creatinine Ratio 22.0 H Glucose 87 Calcium 8.4 L Phosphorus 4.4 Magnesium 2.2 POC Glucose 07/11/18 07/10/18 07/10/18 06:45 22:08 16:59 POC Glucose 93 168 H 183 H 07/10/18 11:28 POC Glucose 75 Home Medications: Medications to take at Discharge Aspirin E.C. [Ecotrin] 81 mg PO DAILY 03/17/18 Atorvastatin Calcium 40 mg PO DAILY 03/17/18 Ergocalciferol [Vitamin D] 50,000 unit PO MO 03/17/18 Ferrous Sulfate [Iron] 325 mg PO DAILY 03/17/18 Levothyroxine Sodium [Synthroid] 112 mcg PO DAILY 03/17/18 Losartan Potassium [Cozaar] 25 mg PO DAILY 03/17/18 Insulin Glargine,Hum.rec.anlog [Basaglar Kwikpen U-100] 30 unit SQ QHS 04/13/18 Ascorbic Acid [Vitamin C] 500 mg PO DAILY@0800 07/07/18 Insulin Aspart [Novolog Flexpen] 10 units SQ 4X/DAY 07/07/18 Insulin Aspart [Novolog Flexpen] See Protocol SQ .COMPLEX 07/07/18 Metoprolol Tartrate [Lopressor (beta aleida)] 50 mg PO BID 07/07/18 Rivaroxaban [Xarelto] 20 mg PO DAILY 07/07/18 Gabapentin [Neurontin] 300 mg PO BIDCM capsule 07/11/18 Oxycodone [Oxyir] 5 mg PO Q4H PRN PRN 2 Days #10 tab 07/11/18 Following Prescrptions Were Given to Patient: Oxycodone [Oxyir] 5 mg PO Q4H PRN PRN 2 Days #10 tab PRN Reason: Severe Pain (6-06/22) Primary Care Physician: Angus Chapa NP-C [Primary Care Provider] - Please follow up with your Primary Care Physician in: 1 Week Disposition: Assisted facility Minutes spent on discharge:: 35 Patient Condition:: Stable Medical Necessity - Tobacco Use Smoking Status: Never smoker Tobacco Use: Non-smoker Meaningful Use Info Meaningful Use Diagnoses (Choose all that apply): None applicable <DexDirk - Last Filed: 07/11/18 16:52> Discharge Date and Diagnosis - Secondary Discharge Diagnosis Chronic Problems (Last Updated 04/13/18 @ 19:54 by Blas Angeles MD) Type 2 diabetes mellitus (Chronic) HTN (hypertension) (Chronic) CAD (coronary artery disease) (Chronic) Hx of CABG (Chronic) Carpal tunnel syndrome on right (Chronic) Cervical radicular pain (Chronic) Hospital Course and Treatment Operations: None Procedures: Stress test Summary of Care Provided: Patient seen and examined independently. Data reviewed. I agree with the above note by the nurse practitioner. The patient is a 78 year old F presents with chest pain. Patient underwent a stress test that was unremarkable. Patient has right arm pain and paresthesias of her right upper extremity. Patient has known radicular symptoms and was seeing a neurosurgeon at [facility]. Patient will need to follow-up with neurosurgery or spine surgery for further follow-up. It is unclear to me if that particular surgeon, Dr. Garcia, will be able to practice. Therefore patient will need to follow-up with another surgeon if he is able to do so. Patient still does have discoordination of her right upper extremity. Patient will need to continue with physical and occupational therapy. [] - Physical Exam General: Alert, Cooperative, No apparent distress HEENT: Atraumatic, Normocephalic Oral: Moist Mucosa, No Gingival or Mucosal Lesions/ Ulcerations Neurological: - - ataxia of RUE. Psych/Mental Status: Normal Affect, Appropriate Vital Signs Temp Pulse Resp BP Pulse Ox 36.9 C 60 16 126/71 H 95 07/11/18 14:36 07/11/18 14:54 07/11/18 14:36 07/11/18 14:36 07/11/18 14:36 Oxygen Flow Rate (L/min) 2 Oxygen Delivery Method Room Air Weight: 86 kg Body Mass Index (BMI) 32.5 Intake and Output for Last 24 Hours 07/09/18 07/10/18 07/11/18 23:59 23:59 23:59 Intake Total 1275 / 1275 1115 / 1115 520 / 520 Output Total 200 / 200 Balance 1075 / 1075 1115 / 1115 520 / 520 Laboratory Tests Past 24 Hrs 07/11/18 07/11/18 05:35 05:35 WBC 8.4 RBC 3.56 L Hgb 10.7 L Hct 34.3 L MCV 96.3 MCH 30.1 MCHC 31.2 L RDW 14.6 RDW Differential 49.3 H Plt Count 262 MPV 11.0 Immature Gran % (Auto) 0.100 Neut % (Auto) 51.4 Lymph % (Auto) 34.0 [place] % (Auto) 8.3 Eos % (Auto) 5.5 H Baso % (Auto) 0.7 Absolute Neuts (auto) 4.3 Absolute Lymphs (auto) 2.84 Total Counted Not Reportable Sodium 140 Potassium 4.5 Chloride 104 Carbon Dioxide 29.0 Anion Gap 7 BUN 28 H Creatinine 1.27 H Estim Creat Clear Calc 32.03 Est GFR (MDRD) Af Amer 52 L Est GFR (MDRD) Non-Af 43 L BUN/Creatinine Ratio 22.0 H Glucose 87 Calcium 8.4 L Phosphorus 4.4 Magnesium 2.2 POC Glucose 07/11/18 07/11/18 07/10/18 10:59 06:45 22:08 POC Glucose 140 H 93 168 H 07/10/18 16:59 POC Glucose 183 H Discharge Diet: No Restrictions Discharge Activity: Return to Normal Activity Disposition: Assisted facility Minutes spent on discharge:: 35 Patient Condition:: Stable Meaningful Use Info Meaningful Use Diagnoses (Choose all that apply): None applicable Code Visit Inpatient E&M: 62649 Disch Hosp
--- NOTE | 2018-07-11 11:51 | CASEMGMT ---
NARCISA spoke with Muna at [facility]. She said she spoke with insurance and SW can send patient. They will need to get a level of care once she is at the facility. NARCISA notified physician. NARCISA faxed orders to [facility]. NARCISA spoke with patient's son, Corey and he said his sister will transport her when ready. He asked SW to call him when the orders are ready. Plan: [facility] under intermediate level of care. PASRR was completed as patient is observation status in the hospital. Family will transport patient via private vehicle. Ashlie CARRASQUILLO WELLNESS GUIDE
[2018-07-11] MEDS: Ferrous Sulfate 325 MG Tablet PO (11:53)
--- NOTE | 2018-07-11 13:23 | CASEMGMT ---
Received message from Belgica Dias with [facility]. She asked for a return call regarding d/c plan. SW called Belgica and left her a vm letting her know the d/c plan is to go to [facility]. (Belgica Dias- [employer] [phone]) Ashlie CARRASQUILLO MSW
== END 2018-07-11 11:04 | disposition skilled nursing facility (03) ==
LOC: ED 14:21 → PCU 15:20
PROVIDERS: Internal Medicine; Admitting Provider Student in an Organized Health Care Education/Training Program; Emergency Provider Emergency Medicine; Family Provider Nurse Practitioner Family; PCP Nurse Practitioner Family
DX: R07.89 Other chest pain (principal); M79.602 Pain in left arm; M79.601 Pain in right arm; E78.00 Pure hypercholesterolemia, unspecified; R94.31 Abnormal electrocardiogram [ECG] [EKG]; I44.7 Left bundle-branch block, unspecified; I25.10 Atherosclerotic heart disease of native coronary artery without angina pectoris; Z95.1 Presence of aortocoronary bypass graft; R20.2 Paresthesia of skin; Z79.899 Other long term (current) drug therapy; Z79.82 Long term (current) use of aspirin; Z79.4 Long term (current) use of insulin; Z79.01 Long term (current) use of anticoagulants; Z86.711 Personal history of pulmonary embolism; M48.02 Spinal stenosis, cervical region; E11.22 Type 2 diabetes mellitus with diabetic chronic kidney disease; I12.9 Hypertensive chronic kidney disease with stage 1 through stage 4 chronic kidney disease, or unspecified chronic kidney disease; N18.3 Chronic kidney disease, stage 3 (moderate)
CPT/HCPCS: 36415; 71045; 73030; 78452; 80048; 80053; 82962; 83735; 84100; 84484; 85025; 85610; 85730; 93005; 93017; 96374; 96375; 96376; 97116; 97162; 97165; 97530; 97802; 99218; 99285; A9500; A4216; G0378; J2405; J2785

== ENCOUNTER → 2018-07-12 05:00 | Outpatient (REF) | payer MEDICARE, SELFPAY ==
[2018-07-12 08:37] LABS: Hematocrit 34.9 % (37-47); Hemoglobin 10.8 g/dl (12.0-15.0); Mean Corp Hgb Conc 30.9 g/gl (32-36); Mean Corpuscular Hgb 29.8 pg (27.0-32.0); Mean Corpuscular Volume 96.4 fL (81-99); Mean Platelet Vol. 12.1 fl (6.2-12.0); Platelet Count 261 K/mm3 (150-450); RBC Distribution Width CV 14.5 % (11.6-14.6); RBC Distribution Width SD 48.9 fl (35.1-43.9); Red Blood Count 3.62 M/mm3 (4.2-5.4); Scan Indicated on CBC? Y/N NO; White Blood Count 7.9 K/mm3 (4.4-11.0)
[2018-07-12 09:05] LABS: Anion Gap 4 (5-15); BUN 28 mg/dL (7-18); BUN/Creat Ratio 22.8 RATIO (10-20); Calcium,Total 8.6 mg/dL (8.5-10.1); Chloride 106 mmol/L (98-107); Creatinine, Serum 1.23 mg/dL (0.55-1.02); EST Glomerular Filtration Rate 45 mL/min (>60); Est Glom Filt Rate - Afr Amer 54 mL/min (>60); Glucose 80 mg/dL (74-106); Potassium 4.4 mmol/L (3.5-5.1); Sodium Level 140 mmol/L (136-145)
[2018-07-15 14:05] LABS: Hemoglobin A1c 6.3 % (4.2-6.3)
== END ==
LOC: OLS.ACH 05:00
PROVIDERS: Visit Provider Family Medicine
DX: E11.9 Type 2 diabetes mellitus without complications (principal); D64.9 Anemia, unspecified; I10 Essential (primary) hypertension
CPT/HCPCS: 36415; 80048; 83036; 85027

== ENCOUNTER → 2018-07-19 04:00 | Outpatient (REF) | payer MEDICARE, SELFPAY ==
[2018-07-19 08:50] LABS: Hematocrit 32.4 % (37-47); Mean Corp Hgb Conc 30.9 g/gl (32-36); Mean Corpuscular Volume 97.3 fL (81-99); Mean Platelet Vol. 13.8 fl (6.2-12.0); Platelet Count 247 K/mm3 (150-450); RBC Distribution Width CV 14.6 % (11.6-14.6); RBC Distribution Width SD 48.6 fl (35.1-43.9); Red Blood Count 3.33 M/mm3 (4.2-5.4); White Blood Count 7.3 K/mm3 (4.4-11.0)
[2018-07-19 08:52] LABS: Scan Indicated on CBC? Y/N NO
[2018-07-19 09:08] LABS: Anion Gap 9 (5-15); BUN 28 mg/dL (7-18); Calcium,Total 8.6 mg/dL (8.5-10.1); Chloride 107 mmol/L (98-107); Creatinine, Serum 1.22 mg/dL (0.55-1.02); EST Glomerular Filtration Rate 45 mL/min (>60); Est Glom Filt Rate - Afr Amer 55 mL/min (>60); Glucose 111 mg/dL (74-106); Potassium 4.3 mmol/L (3.5-5.1); Sodium Level 141 mmol/L (136-145)
== END ==
LOC: OLS.ACH 04:00
PROVIDERS: Visit Provider Family Medicine
DX: I10 Essential (primary) hypertension (principal)
CPT/HCPCS: 36415; 80048; 85027

== ENCOUNTER → 2018-07-26 05:00 | Outpatient (REF) | payer MEDICARE, SELFPAY ==
[2018-07-26 08:38] LABS: Hematocrit 31.9 % (37-47); Hemoglobin 9.9 g/dl (12.0-15.0); Mean Corpuscular Hgb 29.7 pg (27.0-32.0); Mean Corpuscular Volume 95.8 fL (81-99); Mean Platelet Vol. 11.5 fl (6.2-12.0); Platelet Count 297 K/mm3 (150-450); RBC Distribution Width CV 14.7 % (11.6-14.6); RBC Distribution Width SD 48.3 fl (35.1-43.9); Red Blood Count 3.33 M/mm3 (4.2-5.4); White Blood Count 7.7 K/mm3 (4.4-11.0)
[2018-07-26 08:43] LABS: Scan Indicated on CBC? Y/N NO
[2018-07-26 08:51] LABS: Anion Gap 6 (5-15); BUN 31 mg/dL (7-18); BUN/Creat Ratio 25.6 RATIO (10-20); Calcium,Total 8.5 mg/dL (8.5-10.1); Chloride 107 mmol/L (98-107); Creatinine, Serum 1.21 mg/dL (0.55-1.02); EST Glomerular Filtration Rate 46 mL/min (>60); Est Glom Filt Rate - Afr Amer 55 mL/min (>60); Glucose 94 mg/dL (74-106); Potassium 4.6 mmol/L (3.5-5.1); Sodium Level 141 mmol/L (136-145)
== END ==
LOC: OLS.ACH 05:00
PROVIDERS: Visit Provider Family Medicine
DX: I10 Essential (primary) hypertension (principal); D64.9 Anemia, unspecified
CPT/HCPCS: 36415; 80048; 85027

== ENCOUNTER → 2018-08-02 05:00 | Outpatient (REF) | payer MEDICARE, SELFPAY ==
[2018-08-02 08:09] LABS: Hematocrit 33.3 % (37-47); Mean Corpuscular Hgb 28.6 pg (27.0-32.0); Mean Corpuscular Volume 95.1 fL (81-99); Mean Platelet Vol. 12.3 fl (6.2-12.0); Platelet Count 320 K/mm3 (150-450); RBC Distribution Width CV 14.9 % (11.6-14.6); RBC Distribution Width SD 51.1 fl (35.1-43.9); White Blood Count 7.7 K/mm3 (4.4-11.0)
[2018-08-02 08:12] LABS: Scan Indicated on CBC? Y/N NO
[2018-08-02 08:14] LABS: Anion Gap 9 (5-15); BUN 26 mg/dL (7-18); BUN/Creat Ratio 21.5 RATIO (10-20); Calcium,Total 8.8 mg/dL (8.5-10.1); Chloride 107 mmol/L (98-107); Creatinine, Serum 1.21 mg/dL (0.55-1.02); EST Glomerular Filtration Rate 46 mL/min (>60); Est Glom Filt Rate - Afr Amer 55 mL/min (>60); Glucose 73 mg/dL (74-106); Potassium 4.6 mmol/L (3.5-5.1); Sodium Level 141 mmol/L (136-145)
== END ==
LOC: OLS.ACH 05:00
PROVIDERS: Visit Provider Family Medicine
DX: D64.9 Anemia, unspecified (principal); I10 Essential (primary) hypertension
CPT/HCPCS: 36415; 80048; 85027

== ENCOUNTER → 2018-08-09 04:00 | Outpatient (REF) | payer MEDICARE, SELFPAY ==
[2018-08-09 09:10] LABS: Hematocrit 33.3 % (37-47); Hemoglobin 10.3 g/dl (12.0-15.0); Mean Corp Hgb Conc 30.9 g/gl (32-36); Mean Corpuscular Hgb 29.1 pg (27.0-32.0); Mean Corpuscular Volume 94.1 fL (81-99); Mean Platelet Vol. 12.4 fl (6.2-12.0); Platelet Count 272 K/mm3 (150-450); RBC Distribution Width CV 14.4 % (11.6-14.6); RBC Distribution Width SD 47.3 fl (35.1-43.9); Red Blood Count 3.54 M/mm3 (4.2-5.4); White Blood Count 6.7 K/mm3 (4.4-11.0)
[2018-08-09 09:17] LABS: Anion Gap 10 (5-15); BUN 26 mg/dL (7-18); BUN/Creat Ratio 21.7 RATIO (10-20); Calcium,Total 8.7 mg/dL (8.5-10.1); Chloride 106 mmol/L (98-107); EST Glomerular Filtration Rate 46 mL/min (>60); Est Glom Filt Rate - Afr Amer 56 mL/min (>60); Glucose 115 mg/dL (74-106); Potassium 4.4 mmol/L (3.5-5.1); Sodium Level 140 mmol/L (136-145)
[2018-08-09 09:18] LABS: Scan Indicated on CBC? Y/N NO
--- OUTSIDE RECORDS SUMMARY | 2018-09-20 18:23 | XMS RPT_ITS ---
:1940 Author Organization [facility] Support Name Relationship Address Phone Aakash Noble/Liseth Unavailable [address] + [place] [address] R Unavailable Unavailable Unavailable SheilaAntony Unavailable [address] + [place] [address] Cristy Aakash/Liseth Unavailable [address] + [place] [address] R Unavailable Unavailable Unavailable Sheila Antony Unavailable [address] + [place] [address] BALDEMAR NOBLE Unavailable Unavailable + BALDEMAR NOBLE Unavailable Unavailable + Aakash Noble/Liseth Unavailable [address] + [place] [address] R Unavailable Unavailable Unavailable SheilaHectorAntony Unavailable [address] + [place] [address] JhonygrayjonelleAakash/Liseth Unavailable [address] + [place] [address] R Unavailable Unavailable Unavailable SheilaHector clarknie Unavailable [address] + [place] [address] Jhonygrayjonelle Aakash/Liseth Unavailable [address] + [place] [address] R Unavailable Unavailable Unavailable Hector Kimblenie Unavailable [address] + [place] [address] JhonyAakash huff/Liseth Unavailable [address] + [place] [address] R Unavailable Unavailable Unavailable Sheila, Antony Unavailable [address] + [place] [address] Cristy Aakash/Liseth Unavailable [address] + [place] [address] R Unavailable Unavailable Unavailable Antony Kimble Unavailable [address] + [place] [address] Cristy Aakash/Liseth Unavailable [address] + [place] [address] R Unavailable Unavailable Unavailable Antony Kimble Unavailable [address] + [place] [address] Cristy Aakash/Liseth Unavailable [address] + [place] [address] R Unavailable Unavailable Unavailable Antony Kimble Unavailable [address] + [place] [address] JONASHELLJONELLE AAKASH/LISETH Unavailable [address] + [place] [address] R Unavailable Unavailable Unavailable ANTONY KIMBLE Unavailable [address] + [place] [address] JONASHELLJONELLE AAKASH/LISETH Unavailable [address] + [place] [address] R Unavailable Unavailable Unavailable ANTONY KIMBLE Unavailable [address] + [place] [address] JONASHELLJONELLE AAKASH/LISETH Unavailable [address] + [place] [address] R Unavailable Unavailable Unavailable ANTONY KIMBLE Unavailable [address] + [place] [address] JONATTJONELLE AAKASH/LISETH Unavailable [address] + [place] [address] R Unavailable Unavailable Unavailable ANTONY KIMBLE Unavailable [address] + [place] [address] Jhonytettjonelle, Aakash/Liseth Unavailable [address] + [place] [address] R Unavailable Unavailable Unavailable Antony Kimble Unavailable [address] + [place] [address] Cristy Aakash/Liseth Unavailable [address] + [place] [address] R Unavailable Unavailable Unavailable Antony Kimble Unavailable [address] + [place] [address] BALDEMAR NOBLE Unavailable Unavailable + BALDEMAR NOBLE Unavailable Unavailable + CRISTY AAKASH/LISETH Unavailable Unavailable + R Unavailable Unavailable Unavailable ANTOYN KIMBLE Unavailable [address] + [place] [address] CRISTY AAKASH/LISETH Unavailable Unavailable + R Unavailable Unavailable Unavailable ANTONY KIMBLE Unavailable [address] + [place] [address] CRISTY AAKASH/LISETH Unavailable Unavailable + R Unavailable Unavailable Unavailable ANTONY KIMBLE Unavailable [address] + [place] [address] CRISTY AAKASH/LISETH Unavailable Unavailable + R Unavailable Unavailable Unavailable ANTONY KIMBLE Unavailable [address] + [place] [address] CRISTY AAKASH/LISETH Unavailable Unavailable + R Unavailable Unavailable Unavailable ANTONY KIMBLE Unavailable [address] + [place] [address] CRISTY AAKASH/LISETH Unavailable Unavailable + R Unavailable Unavailable Unavailable ANTONY KIMBLE Unavailable [address] + [place] [address] CRISTY, AAKASH/LISETH Unavailable Unavailable + R Unavailable Unavailable Unavailable ANTONY KIMBLE Unavailable [address] + [place] [address] CRISTY AAKASH/LISETH Unavailable Unavailable + R Unavailable Unavailable Unavailable ANTONY KIMBLE Unavailable [address] + [place] [address] AAKASH NOBLE/LISETH Unavailable Unavailable + R Unavailable Unavailable Unavailable ANTONY KIMBLE Unavailable [address] + [place] [address] AAKASH NOBLE/LISETH Unavailable Unavailable + R Unavailable Unavailable Unavailable ANTONY KIMBLE Unavailable [address] + [place] [address] Aakash Noble Unavailable Unavailable + AAKASH NOBLE/LISETH Unavailable Unavailable + R Unavailable Unavailable Unavailable ANTONY KIMBLE Unavailable [address] + [place] [address] AAKASH NOBLE/LISETH Unavailable Unavailable + R Unavailable Unavailable Unavailable ANTONY KIMBLE Unavailable [address] + [place] [address] AAKASH NOBLE/LISETH Unavailable Unavailable + R Unavailable Unavailable Unavailable ANTONY KIMBLE Unavailable [address] + [place] [address] AAKASH NOBLE/LISETH Unavailable Unavailable + R Unavailable Unavailable Unavailable ANTONY KIMBLE Unavailable [address] + [place] [address] BALDEMAR NOBLE Unavailable Unavailable + BALDEMAR NOBLE Unavailable Unavailable + BALDEMAR NOBLE Unavailable Unavailable + BALDEMAR NOBLE Unavailable Unavailable + BALDEMAR NOBLE Unavailable [address] + [place] [address] R Unavailable Unavailable Unavailable BALDEMAR NOBLE Unavailable Unavailable + BALDEMAR NOBLE Unavailable Unavailable + Care Team Providers Name Role Phone LATIA CHAPA CNP Attending Unavailable LATIA CHAPA CNP Primary Care Unavailable DR. MAYLIN BENITO DO Attending Unavailable LATIA CHAPA CNP Primary Care Unavailable LATIA CHAPA CNP Attending Unavailable LATIA CHAPA CNP Primary Care Unavailable LATIA CHAPA CNP Attending Unavailable LATIA CHAPA CNP Primary Care Unavailable REFERRING REFERRING, BRENT KENNEDY WO ID~[id number] Attending Unavailable LATIA CHAPA CNP Primary Care Unavailable Jovanni Valdez Attending Unavailable PROVIDER, UNKNOWN Referring Unavailable No, PCP Primary Care Unavailable RIEHMDAYNAHARRIETT L Attending Unavailable RIEHM HARRIETT L Referring Unavailable RIEHM HARRIETT L Attending Unavailable RIEHM, HARRIETT L Referring Unavailable Jono Díaz Attending Unavailable Jono Díaz Attending Unavailable Maylin Benito Attending Unavailable Latia Chapa PNP-C Primary Care Unavailable Koram, Claudia Little Admitting Unavailable Cadence, Claudia Little Attending Unavailable Cadence, Claudia Little Admitting Unavailable Latia Chapa PNP-C Primary Care Unavailable Koram, Claudia Little Consulting Unavailable Seraam, Claudia Little Attending Unavailable Cadence Claudia Little Attending Unavailable Cadence, Claudia Little Attending Unavailable Latia Chapa PNP-C Primary Care Unavailable Oleghe, Ifijen Admitting Unavailable Ashelfbelgica, Ghasem Attending Unavailable Karthik, Ifijen Admitting Unavailable Latia Chapa PNP-C Primary Care Unavailable Oleghe, Ifijen Consulting Unavailable Angella Waddell Attending Unavailable Oleghe, Ifijen Admitting Unavailable Srini Taveras Attending Unavailable Latia Chapa PNP-C Primary Care Unavailable Tereletsky, Srini Consulting Unavailable Oleghe, Ifijen Admitting Unavailable Nitin Srini Attending Unavailable Latia Chapa PNP-C Primary Care Unavailable Tereletsky, Srini Consulting Unavailable Oleghe, Ifijen Admitting Unavailable Dirk Kowalski Attending Unavailable Latia Chapa PNP-C Primary Care Unavailable Dex Dirk Consulting Unavailable Oleghe, Ifijen Admitting Unavailable Dirk Kowalski Attending Unavailable Latia Chapa PNP-C Primary Care Unavailable Dex Dirk Consulting Unavailable Oleghe, Ifijen Admitting Unavailable Latia Chapa PNP-C Primary Care Unavailable Ashelfah, Ghasem Consulting Unavailable Ashelfah, Ghasem Attending Unavailable Oleghe, Ifijen Admitting Unavailable Ashelfah, Ghasem Attending Unavailable Latia Chapa PNP-C Primary Care Unavailable Ashelfah, Ghasem Consulting Unavailable Latia Chapa. PNP-C Primary Care Unavailable [place] Mtz Attending Unavailable Shan Henry Attending Unavailable Karthik, Efewongbe Referring Unavailable Latia Chapa PNP-C Primary Care Unavailable Koram, Claudia Little Admitting Unavailable Dirk Kowalski Attending Unavailable Koram, Claudia Little Admitting Unavailable Koram, Claudia Little Attending Unavailable Latia Chapa PNP-C Primary Care Unavailable Koram, Claudia Little Consulting Unavailable Koram, Claudia Little Admitting Unavailable Jassi Easley Attending Unavailable Latia Chapa PNP-C Primary Care Unavailable Steinberger, Jassi Consulting Unavailable Koram, Claudia Little Admitting Unavailable Jassi Easley Attending Unavailable Latia Chapa PNP-C Primary Care Unavailable Steinberger, Jassi Consulting Unavailable Koram, Claudia Little Admitting Unavailable Jassi Easley Attending Unavailable Latia Chapa. PNP-C Primary Care Unavailable Steinberger, Jassi Consulting Unavailable Koram, Claudia Little Admitting Unavailable Latia Chapa PNP-C Primary Care Unavailable Dex, Dirk Consulting Unavailable Dex Dirk Attending Unavailable Jono Díaz Attending Unavailable Bre, Jono Attending Unavailable Petrilla, Jono Attending Unavailable Nicholas Marquez Attending Unavailable Koram, Claudia Little Referring Unavailable Thelmalla, Jono Attending Unavailable Petrilla, Jono Attending Unavailable AveryaJono Attending Unavailable PROBLEMS PROBLEMS DATE TYPE CONDITION / CODE ATTENDING STATUS SOURCE Unknown I10 - Essential Petrilla, Active [facility] (primary) hypertension [facility] / I10(ICD-10) Hospital Repository Unknown D64.9 - Anemia, Petrilla, Active [facility] unspecified / [facility] D64.9(ICD-10) Hospital Repository Unknown E11.9 - Type 2 Petritriciaa, Active [facility] diabetes mellitus [facility] without complications Hospital / E11.9(ICD-10) Repository Unknown M54.12 - Dirk Kowalski Active [facility] Radiculopathy, Community cervical region / Hospital M54.12(ICD-10) Repository Unknown R94.31 - Abnormal Nicholas Marquez Active [facility] electrocardiogram Community [ECG] [EKG] / Hospital R94.31(ICD-10) Repository Unknown M54.9 - Dorsalgia, Mtz, Active [facility] unspecified / [facility] M54.9(ICD-10) Hospital Repository Admitting Pain in right shoulder HARRIETT ALEJANDRE Active [facility] 8 Diagnosis / M25.511(ICD-10) L [facility] ([place]) Repository Unknown I44.7 - Left Carl, [place] Active [facility] 8 bundle-branch block, Community unspecified / Hospital I44.7(ICD-10) Repository Admitting Hypothyroidism, Valdez, Jovanni [facility] 8 Diagnosis unspecified / System E03.9(ICD-10) Repository Admitting Vitamin D deficiency, Valdez, Jovanni [facility] 8 Diagnosis unspecified / System E55.9(ICD-10) Repository Admitting Anesthesia of skin / Valdez, Jovanni [facility] 8 Diagnosis R20.0(ICD-10) System Repository Admitting Spinal stenosis, Valdez, Jovanni Active [facility] 8 Diagnosis cervical region / System M48.02(ICD-10) Repository Admitting Other spondylosis with Valdez, 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, cervical System region / Repository M47.12(ICD-10) Admitting Urinary tract Valdez, Jovanni [facility] 8 Diagnosis infection, site not System specified / Repository N39.0(ICD-10) Admitting Other spondylosis with Valdez, Jovanni [facility] 8 Diagnosis radiculopathy, System cervical region / Repository M47.22(ICD-10) Admitting Type 2 diabetes Valdez, Jovanni Active [facility] 8 Diagnosis mellitus with System hyperglycemia / Repository E11.65(ICD-10) Admitting superintendent tests (current) Valdez, Jovanni Active [facility] 8 Diagnosis use of insulin / System Z79.4(ICD-10) Repository Admitting Bradycardia, Valdez, Jovanni Active [facility] 8 Diagnosis unspecified / System R00.1(ICD-10) Repository Admitting Type 2 diabetes Valdez, Jovanni Active [facility] 8 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 Repository / E11.22(ICD-10) Admitting Hypertensive chronic Valdez, Jovanni Active [facility] 8 Diagnosis kidney disease w stg System 1-4/unsp chr kdny / Repository I12.9(ICD-10) Admitting Chronic kidney Valdez, Jovanni Active [facility] 8 Diagnosis disease, stage 3 System (moderate) / Repository N18.3(ICD-10) Admitting superintendent tests (current) Valdez, Jovanni Active [facility] 8 Diagnosis 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 / System Z79.82(ICD-10) Repository Admitting Athscl heart disease Valdez, 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 / Repository I25.10(ICD-10) Admitting Presence of Valdez, 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(ICD-10) Repository Admitting Left bundle-branch Valdez, Jovanni Active [facility] 8 Diagnosis block, unspecified / System I44.7(ICD-10) Repository Admitting Long QT syndrome / Valdez, Jovanni Active [facility] 8 Diagnosis I45.81(ICD-10) System Repository Admitting Unsp Escherichia coli Valdez, Jovanni Active [facility] 8 Diagnosis as the cause of System diseases classd elswhr Repository / B96.20(ICD-10) Admitting Constipation, Valdez, Jovanni Active [facility] 8 Diagnosis unspecified / System K59.00(ICD-10) Repository Admitting Iron deficiency Valdez, Jovanni Active [facility] 8 Diagnosis anemia, unspecified / System D50.9(ICD-10) Repository Admitting Obesity, unspecified / Valdez, Jovanni Active [facility] 8 Diagnosis E66.9(ICD-10) System Repository Admitting Body mass index (BMI) Valdez Jovanni Active [facility] 8 Diagnosis 32.0-32.9, adult / System Z68.32(ICD-10) Repository Admitting Coma scale, best motor Pancho Jovanni Active [facility] 8 Diagnosis response, obeys System commands, admit / Repository R40.2363(ICD-10) Admitting Coma scale, eyes open, Pancho Jovanni Active [facility] 8 Diagnosis spontaneous, at System hospital admission / Repository R40.2143(ICD-10) Admitting Coma scale, best Pancho Jovanni Active [facility] 8 Diagnosis verbal response, System oriented, admit / Repository R40.2253(ICD-10) Admitting History of falling / Valdez, Jovanni Active [facility] 8 Diagnosis Z91.81(ICD-10) System Repository Admitting Major depressive Valdez, Jovanni Active [facility] 8 Diagnosis disorder, single System episode, unspecified / Repository F32.9(ICD-10) Admitting Insomnia, unspecified Valdez, Jovanni Active [facility] 8 Diagnosis / G47.00(ICD-10) System Repository Admitting Hyperlipidemia, Valdez, Jovanni Active [facility] 8 Diagnosis unspecified / System E78.5(ICD-10) Repository Admitting Essential (primary) EZE CNP, Active [facility] 8 Diagnosis hypertension / [facility] I10(ICD-10) Repository Admitting Pure hyperglyceridemia EZE [employer], Active [facility] 8 Diagnosis / E78.1(ICD-10) [facility] Repository PROCEDURES PROCEDURES No Procedure Records FoundRESULTS RESULTS BASIC METABOLIC Collected: 08/30/2018 Status: F Source: INGE PROFILE (BMP) 6:20 AM [facility] [place] REPOSITORY Order Comment: 303/2 TYPE CODE TESTS RESULT OUT OF RANGE REFERENCE UNITS LAB L501.0100 74-106 mg/dL Normal GLU 104 Result Comment: Fasting Glucose result from 100 to 125 mg/dL suggests IMPAIRED HOMEOSTASIS per A.D.A. criteria. Please note revised GLUCOSE reference range effective 2017. LAB L501.1000 7-18 mg/dL High BUN 24 LAB L501.1100 0.55-1.02 mg/dL High CREAT,SERUM 1.12 Result Comment: The validity of the calculated GFR AND GFRAA in patients over 70 years has not been determined. Clinical correlation is essential. LAB L501.1110 >60 mL/min Low EST GFR 50 Result Comment: Non- GFR Calc LAB L501.1115 >60 mL/min Normal EST GFR - AA 61 Result Comment: GFR Calc LAB L501.1300 10-20 RATIO High BUN/CRE 21.4 LAB L501.2200 8.5-10.1 mg/dL CA Normal 8.7 LAB L501.5300 136-145 mmol/L NA Normal 140 LAB L501.5600 3.5-5.1 mmol/L K Normal 4.5 LAB L501.5900 98-107 mmol/L CL Normal 105 LAB L501.6100 21.0-32.0 mmol/L Normal CO2 26.0 LAB L501.6200 5-15 Normal GAP 9 Performed By: #### L500.2500 #### [facility] [address] [place], [address] BASIC METABOLIC Collected: 08/23/2018 Status: F Source: CORNING PROFILE ([facility]) 4:49 AM [facility] REPOSITORY Order Comment: 303/2 TYPE CODE TESTS RESULT OUT OF RANGE REFERENCE UNITS LAB L501.0100 74-106 mg/dL Normal GLU 96 Result Comment: Please note revised GLUCOSE reference range effective 2017. LAB L501.1000 7-18 mg/dL High BUN 27 LAB L501.1100 0.55-1.02 mg/dL High CREAT,SERUM 1.18 Result Comment: The validity of the calculated GFR AND GFRAA in patients over 70 years has not been determined. Clinical correlation is essential. LAB L501.1110 >60 mL/min Low EST GFR 47 Result Comment: Non- GFR Calc LAB L501.1115 >60 mL/min Low EST GFR - AA 57 Result Comment: GFR Calc LAB L501.1300 10-20 RATIO High BUN/CRE 22.9 LAB L501.2200 8.5-10.1 mg/dL CA Normal 8.9 LAB L501.5300 136-145 mmol/L NA Normal 138 LAB L501.5600 3.5-5.1 mmol/L K Normal 4.8 Result Comment: Slight Hemolysis, Result may be falsely increased. LAB L501.5900 98-107 mmol/L Normal CL 105 LAB L501.6100 21.0-32.0 mmol/L Normal CO2 26.0 LAB L501.6200 5-15 Normal 7 GAP Performed By: #### L500.2500 #### [facility] [address] [place], [address] MRI SPINE CERVICAL Observed: 08/18/2018 Status: F Source: [facility] W/O CONTRAST 2:00 PM [facility] REPOSITORY ORIGINAL MRI SPINE CERVICAL W/O CONTRAST Clinical Statement: SPINAL STENOSIS CERVICAL REGION. TECHNIQUE: Multiplanar, multisequence imaging of the cervical spine. COMPARISON: None. FINDINGS: There is anterior cervical fusion hardware at C5 with prominent associated artifact which distorts the adjacent tissues, essentially obscuring the C4, C5 and C6 vertebral bodies. The cervical spine demonstrates normal alignment. Vertebral bodies are normal in height. There is a normal marrow signal pattern. Intervertebral discs are normal in height and signal intensity. The paraspinal soft tissues, craniocervical junction and included intracranial contents are grossly normal. C2-3: No stenosis. C3-4: Uncovertebral spurring and facet arthropathy cause mild LEFT foraminal stenosis. C4-5: There is intramedullary T2 hyperintensity at this level. No significant spinal canal stenosis. Uncovertebral spurring and facet arthropathy cause moderate bilateral foraminal stenosis. C5-6: No significant spinal canal stenosis. Evaluation of the neural foramen is nondiagnostic due to artifact. C6-7: Circumferential disc osteophyte complex causes mild spinal canal stenosis. Uncovertebral spurring and facet arthropathy cause mild RIGHT foraminal stenosis. C7-T1: No stenosis. IMPRESSION: 1. 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 Correlation with previous imaging is recommended. 2. No significant spinal canal stenosis. Interpreted By: Reynaldo Shell Report By: Reynaldo Shell Electronically Signed By: Reynaldo Shell Dictated Date: 08/18/2018 3:16:08 PM Prelim Date: 08/18/2018 3:16:08 PM Sign Date: 08/18/2018 3:21:36 PM BASIC METABOLIC Collected: 08/16/2018 Status: F Source: INGE PROFILE ([facility]) 6:05 AM [facility] REPOSITORY Order Comment: ROOM 303 TYPE CODE TESTS RESULT OUT OF RANGE REFERENCE UNITS LAB L501.0100 74-106 mg/dL Normal GLU 77 Result Comment: Please note revised GLUCOSE reference range effective 2017. LAB L501.1000 7-18 mg/dL High BUN 23 LAB L501.1100 0.55-1.02 mg/dL High CREAT,SERUM 1.13 Result Comment: The validity of the calculated GFR AND GFRAA in patients over 70 years has not been determined. Clinical correlation is essential. LAB L501.1110 >60 mL/min Low EST GFR 50 Result Comment: Non- GFR Calc LAB L501.1115 >60 mL/min Normal EST GFR - AA 60 Result Comment: GFR Calc LAB L501.1300 10-20 RATIO High BUN/CRE 20.4 LAB L501.2200 8.5-10.1 mg/dL CA Normal 8.8 LAB L501.5300 136-145 mmol/L NA Normal 142 LAB L501.5600 3.5-5.1 mmol/L K Normal 4.8 LAB L501.5900 98-107 mmol/L CL Normal 106 LAB L501.6100 21.0-32.0 mmol/L Normal CO2 27.0 LAB L501.6200 5-15 Normal GAP 9 Performed By: #### L500.2500 #### [facility] [address] [place], [place], [id number] BASIC METABOLIC Collected: 08/09/2018 Status: F Source: INGE PROFILE ([facility]) 6:40 AM [facility] REPOSITORY Order Comment: ROOM 303 TYPE CODE TESTS RESULT OUT OF RANGE REFERENCE UNITS LAB L501.0100 74-106 mg/dL High GLU 115 Result Comment: Fasting Glucose result from 100 to 125 mg/dL suggests IMPAIRED HOMEOSTASIS per A.D.A. criteria. Please note revised GLUCOSE reference range effective 2017. LAB L501.1000 7-18 mg/dL High BUN 26 LAB L501.1100 0.55-1.02 mg/dL High CREAT,SERUM 1.20 Result Comment: The validity of the calculated GFR AND GFRAA in patients over 70 years has not been determined. Clinical correlation is essential. LAB L501.1110 >60 mL/min Low EST GFR 46 Result Comment: Non- GFR Calc LAB L501.1115 >60 mL/min Low EST GFR - AA 56 Result Comment: GFR Calc LAB L501.1300 10-20 RATIO High BUN/CRE 21.7 LAB L501.2200 8.5-10.1 mg/dL CA Normal 8.7 LAB L501.5300 136-145 mmol/L NA Normal 140 LAB L501.5600 3.5-5.1 mmol/L K Normal 4.4 LAB L501.5900 98-107 mmol/L CL Normal 106 LAB L501.6100 21.0-32.0 mmol/L Normal CO2 24.0 LAB L501.6200 5-15 Normal GAP 10 Performed By: #### L500.2500 #### [facility] [address] [place], [place], [id number] CBC-COMPLETE BLOOD CNT Collected: 08/09/2018 Status: F Source: CORNING NO DIFF 6:40 AM [facility] REPOSITORY Order Comment: ROOM 303 TYPE CODE TESTS RESULT OUT OF RANGE REFERENCE UNITS LAB L100.1000 4.4-11.0 K/mm3 Normal WBC 6.7 LAB L100.1200 4.2-5.4 M/mm3 Low RBC 3.54 LAB L100.1300 12.0-15.0 g/dl Low HGB 10.3 LAB L100.1400 37-47 % Low HCT 33.3 LAB L100.1500 81-99 fL Normal MCV 94.1 LAB L100.1600 27.0-32.0 pg Normal MCH 29.1 LAB L100.1700 32-36 g/gl Low MCHC 30.9 LAB L100.1810 11.6-14.6 % Normal RDW CV 14.4 LAB L100.1820 35.1-43.9 fl High RDW SD 47.3 LAB L100.1900 150-450 K/mm3 Normal PLT 272 LAB L100.2000 6.2-12.0 fl High MPV 12.4 Performed By: #### L100.0500 #### [facility] [address] [place], [place], [id number] CBC-COMPLETE BLOOD CNT Collected: 08/02/2018 Status: F Source: INGE NO DIFF 5:55 AM [facility] REPOSITORY Order Comment: 303-2 TYPE CODE TESTS RESULT OUT OF RANGE REFERENCE UNITS LAB L100.1000 4.4-11.0 K/mm3 Normal WBC 7.7 LAB L100.1200 4.2-5.4 M/mm3 Low RBC 3.50 LAB L100.1300 12.0-15.0 g/dl Low HGB 10.0 LAB L100.1400 37-47 % Low HCT 33.3 LAB L100.1500 81-99 fL Normal MCV 95.1 LAB L100.1600 27.0-32.0 pg Normal MCH 28.6 LAB L100.1700 32-36 g/gl Low MCHC 30.0 LAB L100.1810 11.6-14.6 % High RDW CV 14.9 LAB L100.1820 35.1-43.9 fl High RDW SD 51.1 LAB L100.1900 150-450 K/mm3 Normal PLT 320 LAB L100.2000 6.2-12.0 fl High MPV 12.3 Performed By: #### L100.0500 #### [facility] [address] [place], [place], [id number] BASIC METABOLIC Collected: 08/02/2018 Status: F Source: INGE PROFILE (BMP) 5:55 AM [facility] REPOSITORY Order Comment: 303-2 TYPE CODE TESTS RESULT OUT OF RANGE REFERENCE UNITS LAB L501.0100 74-106 mg/dL Low GLU 73 Result Comment: Please note revised GLUCOSE reference range effective 2017. LAB L501.1000 7-18 mg/dL High BUN 26 LAB L501.1100 0.55-1.02 mg/dL High CREAT,SERUM 1.21 Result Comment: The validity of the calculated GFR AND GFRAA in patients over 70 years has not been determined. Clinical correlation is essential. LAB L501.1110 >60 mL/min Low EST GFR 46 Result Comment: Non- GFR Calc LAB L501.1115 >60 mL/min Low EST GFR - AA 55 Result Comment: GFR Calc LAB L501.1300 10-20 RATIO High BUN/CRE 21.5 LAB L501.2200 8.5-10.1 mg/dL CA Normal 8.8 LAB L501.5300 136-145 mmol/L NA Normal 141 LAB L501.5600 3.5-5.1 mmol/L K Normal 4.6 LAB L501.5900 98-107 mmol/L CL Normal 107 LAB L501.6100 21.0-32.0 mmol/L Normal CO2 25.0 LAB L501.6200 5-15 Normal GAP 9 Performed By: #### L500.2500 #### [facility] [address] [place], [place], [address] CBC-COMPLETE BLOOD CNT Collected: 07/26/2018 Status: F Source: INGE NO DIFF 7:35 AM [facility] REPOSITORY Order Comment: RM: 303/2 TYPE CODE TESTS RESULT OUT OF RANGE REFERENCE UNITS LAB L100.1000 4.4-11.0 K/mm3 Normal WBC 7.7 LAB L100.1200 4.2-5.4 M/mm3 Low RBC 3.33 LAB L100.1300 12.0-15.0 g/dl Low HGB 9.9 LAB L100.1400 37-47 % Low HCT 31.9 LAB L100.1500 81-99 fL Normal MCV 95.8 LAB L100.1600 27.0-32.0 pg Normal MCH 29.7 LAB L100.1700 32-36 g/gl Low MCHC 31.0 LAB L100.1810 11.6-14.6 % High RDW CV 14.7 LAB L100.1820 35.1-43.9 fl High RDW SD 48.3 LAB L100.1900 150-450 K/mm3 Normal PLT 297 LAB L100.2000 6.2-12.0 fl Normal MPV 11.5 Performed By: #### L100.0500 #### [facility] [address] [facility]. [place], [place], [id number] BASIC METABOLIC Collected: 07/26/2018 Status: F Source: INGE PROFILE (BMP) 7:35 AM [facility] REPOSITORY Order Comment: RM: 303/2 TYPE CODE TESTS RESULT OUT OF RANGE REFERENCE UNITS LAB L501.0100 74-106 mg/dL Normal GLU 94 Result Comment: Please note revised GLUCOSE reference range effective 2017. LAB L501.1000 7-18 mg/dL High BUN 31 LAB L501.1100 0.55-1.02 mg/dL High CREAT,SERUM 1.21 Result Comment: The validity of the calculated GFR AND GFRAA in patients over 70 years has not been determined. Clinical correlation is essential. LAB L501.1110 >60 mL/min Low EST GFR 46 Result Comment: Non- GFR Calc LAB L501.1115 >60 mL/min Low EST GFR - AA 55 Result Comment: GFR Calc LAB L501.1300 10-20 RATIO High BUN/CRE 25.6 LAB L501.2200 8.5-10.1 mg/dL CA Normal 8.5 LAB L501.5300 136-145 mmol/L NA Normal 141 LAB L501.5600 3.5-5.1 mmol/L K Normal 4.6 LAB L501.5900 98-107 mmol/L CL Normal 107 LAB L501.6100 21.0-32.0 mmol/L Normal CO2 28.0 LAB L501.6200 5-15 Normal GAP 6 Performed By: #### L500.2500 #### [facility] [address] [facility] [place], [address] 12 LEAD ELECTROCARDIOGRAM Observed: 07/20/2018 Status: F Source: INGE 2:51 PM [facility] REPOSITORY [facility] Cardiovascular Services [address] [place] [address] 12 Lead EKG 07/08/18 0456 MR#: [id number] Acct: [id number] Name: NO NOBLE Rep #: [id number] : 1940 78 From: Shan Henry MD Attending Dr: Dirk Kowalski DO Status: DIS DEISY Ordering Dr: Jassi Easley MD Date: 07/08/18 Location: U Sex: F C Admitted: 07/07/18 Test Reason : AM EKG Blood Pressure : / mmHG Vent. Rate : 059 BPM Atrial Rate : 059 BPM P-R Int : 210 ms QRS Dur : 136 ms QT Int : 458 ms P-R-T Axes : 064 -40 159 degrees QTc Int : 453 ms Sinus bradycardia with 1st degree A-V block Left axis deviation Left bundle branch block Abnormal ECG When compared with ECG of 07-JUL-2018 16:10, MANUAL COMPARISON REQUIRED, DATA IS UNCONFIRMED Confirmed by CARL EL, SHAN ([id number]), editor farm journal DAMIAN MCCRACKEN ([id number]) on 07/20/2018 2:50:35 PM Referred By: ARIS Confirmed By:SHAN HENRY MD 07/20/18 1450 Date Shan Henry MD CC: PNP-C Latia Chapa; Dirk Kowalski DO; Jassi Easley MD Signed CBC-COMPLETE BLOOD CNT Collected: 07/19/2018 Status: F Source: INGE NO DIFF 5:40 AM [facility] REPOSITORY Order Comment: ROOM 303 TYPE CODE TESTS RESULT OUT OF RANGE REFERENCE UNITS LAB L100.1000 4.4-11.0 K/mm3 Normal WBC 7.3 LAB L100.1200 4.2-5.4 M/mm3 Low RBC 3.33 LAB L100.1300 12.0-15.0 g/dl Low HGB 10.0 LAB L100.1400 37-47 % Low HCT 32.4 LAB L100.1500 81-99 fL Normal MCV 97.3 LAB L100.1600 27.0-32.0 pg Normal MCH 30.0 LAB L100.1700 32-36 g/gl Low MCHC 30.9 LAB L100.1810 11.6-14.6 % Normal RDW CV 14.6 LAB L100.1820 35.1-43.9 fl High RDW SD 48.6 LAB L100.1900 150-450 K/mm3 Normal PLT 247 LAB L100.2000 6.2-12.0 fl High MPV 13.8 Performed By: #### L100.0500 #### [facility] [address] [place], [address] BASIC METABOLIC Collected: 07/19/2018 Status: F Source: INGE PROFILE (BMP) 5:40 AM [facility] REPOSITORY Order Comment: ROOM 303 TYPE CODE TESTS RESULT OUT OF RANGE REFERENCE UNITS LAB L501.0100 74-106 mg/dL High GLU 111 Result Comment: Fasting Glucose result from 100 to 125 mg/dL suggests IMPAIRED HOMEOSTASIS per A.D.A. criteria. Please note revised GLUCOSE reference range effective 2017. LAB L501.1000 7-18 mg/dL High BUN 28 LAB L501.1100 0.55-1.02 mg/dL High CREAT,SERUM 1.22 Result Comment: The validity of the calculated GFR AND GFRAA in patients over 70 years has not been determined. Clinical correlation is essential. LAB L501.1110 >60 mL/min Low EST GFR 45 Result Comment: Non- GFR Calc LAB L501.1115 >60 mL/min Low EST GFR - AA 55 Result Comment: GFR Calc LAB L501.1300 10-20 RATIO High BUN/CRE 23.0 LAB L501.2200 8.5-10.1 mg/dL CA Normal 8.6 LAB L501.5300 136-145 mmol/L NA Normal 141 LAB L501.5600 3.5-5.1 mmol/L K Normal 4.3 LAB L501.5900 98-107 mmol/L CL Normal 107 LAB L501.6100 21.0-32.0 mmol/L Normal CO2 25.0 LAB L501.6200 5-15 Normal GAP 9 Performed By: #### L500.2500 #### [facility] [address] [place], [address] 12 LEAD ELECTROCARDIOGRAM Observed: 07/14/2018 Status: F Source: INGE 4:13 PM [facility] REPOSITORY [facility] Cardiovascular Services [address] [place] [address] 12 Lead EKG 07/08/184 MR#: [id number] Acct: [id number] Name: NO NOBLE Rep #: [id number] : 1940 78 From: Jassi Sandoval MD Attending Dr: Jopperi DO,Dirk Status: DIS DEISY Ordering Dr: Claudia Cruz MD Date: 07/08/18 Location: U Sex: F C Admitted: 07/07/18 Test Reason : CHEST PAIN Blood Pressure : / mmHG Vent. Rate : 065 BPM Atrial Rate : 065 BPM P-R Int : 202 ms QRS Dur : 132 ms QT Int : 488 ms P-R-T Axes : 060 -46 126 degrees QTc Int : 507 ms Normal sinus rhythm Left axis deviation Left bundle branch block Abnormal ECG Confirmed by JAIME EL, JASSI ([id number]), editor farm journal DAMIAN MCCRACKEN ([id number]) on 07/14/2018 4:13:10 PM Referred By: CADENCE Confirmed By:JASSI SANDOVAL MD 07/14/18 1613 Date Jassi Sandoval MD CC: PNP-C Latia Chapa; Dirk Kowalski DO; Claudia Cruz MD Signed 12 LEAD ELECTROCARDIOGRAM Observed: 07/12/2018 Status: F Source: [place] 12:47 PM [facility] REPOSITORY [facility] Cardiovascular Services [address] [place] [address] 12 Lead EKG 07/07/18 1610 MR#: [id number] Acct: [id number] Name: NO NOBLE Rep #: [id number] : 1940 78 From: Nicholas Marquez MD Attending Dr: Dirk Kowalski DO Status: DIS DEISY Ordering Dr: Claudia Cruz MD Date: 07/07/18 Location: [facility] Sex: F C Admitted: 07/07/18 Test Reason : ADMISSION Blood Pressure : / mmHG Vent. Rate : 053 BPM Atrial Rate : 053 BPM P-R Int : 190 ms QRS Dur : 142 ms QT Int : 540 ms P-R-T Axes : 061 -41 148 degrees QTc Int : 506 ms Sinus bradycardia Left axis deviation Left bundle branch block Abnormal ECG When compared with ECG of 07-JUL-2018 14:51, MANUAL COMPARISON REQUIRED, DATA IS UNCONFIRMED Confirmed by NICHOLAS MARQUEZ ([id number]), editor farm journal DAMIAN MCCRACKEN (56) on 07/12/2018 12:47:18 PM Referred By: CADENCE Confirmed By:NICHOLAS MARQUEZ 07/12/18 1247 Date Nicholas Marquez MD CC: HIMANSHU Chapa; Dirk Kowalski DO; Claudia Cruz MD Signed 12 LEAD ELECTROCARDIOGRAM Observed: 07/12/2018 Status: F Source: INGE 8:58 AM [facility] REPOSITORY [facility] Cardiovascular Services [address] [facility] [facility] [facility] [place] [address] 12 Lead EKG 07/07/18 1451 MR#: [id number] Acct: [id number] Name: NO NOBLE Rep #: [id number] : 1940 78 From: Nicholas Marquez MD Attending Dr: Dirk Kowalski DO Status: DIS DEISY Ordering Dr: Tello Valdez MD Date: 07/07/18 Location: [facility] Sex: F C Admitted: 07/07/18 Test Reason : Blood Pressure : / mmHG Vent. Rate : 075 BPM Atrial Rate : 441 BPM P-R Int : 000 ms QRS Dur : 136 ms QT Int : 492 ms P-R-T Axes : 000 -36 108 degrees QTc Int : 549 ms Normal sinus rhythm Left axis deviation Left bundle branch block Abnormal ECG Confirmed by NICHOLAS MARQUEZ ([id number]), editor farm journal DAMIAN MCCRACKEN ([id number]) on 07/12/2018 8:58:41 AM Referred By: PANCHO Confirmed By:NICHOLAS MARQUEZ 07/12/18 0858 Date Nicholas Marquez MD CC: HIMANSHU Chapa; Dirk Kowalski DO; Tello Valdez MD Signed 12 LEAD ELECTROCARDIOGRAM Observed: 07/12/2018 Status: F Source: INGE 8:57 AM [facility] REPOSITORY [facility] Cardiovascular Services [address] [facility] [place] [address] 12 Lead EKG 07/07/18 1310 MR#: [id number] Acct: [id number] Name: NO NBOLE Rep #: [id number] : 1940 78 From: Nicholas Marquez MD Attending Dr: Dirk Kowalski DO Status: DIS DEISY Ordering Dr: Tello Valdez MD Date: 07/07/18 Location: [facility] Sex: F C Admitted: 07/07/18 Test Reason : Blood Pressure : / mmHG Vent. Rate : 063 BPM Atrial Rate : 063 BPM P-R Int : 188 ms QRS Dur : 150 ms QT Int : 500 ms P-R-T Axes : 061 -43 125 degrees QTc Int : 511 ms Sinus rhythm with Premature atrial complexes Left axis deviation Left bundle branch block Abnormal ECG Confirmed by NICHOLAS MARQUEZ ([id number]), editor farm journal DAMIAN MCCRACKEN (56) on 07/12/2018 8:57:16 AM Referred By: PANCHO Confirmed By:NICHOLAS MARQUEZ 07/12/18 0857 Date Nicholas Marquez MD CC: PNP-C Latia Chapa; Dirk Kowalski DO; Tello Valdez MD Signed CBC-COMPLETE BLOOD CNT Collected: 07/12/2018 Status: F Source: INGE NO DIFF 7:00 AM [facility] REPOSITORY Order Comment: 303-2 TYPE CODE TESTS RESULT OUT OF RANGE REFERENCE UNITS LAB L100.1000 4.4-11.0 K/mm3 Normal WBC 7.9 LAB L100.1200 4.2-5.4 M/mm3 Low RBC 3.62 LAB L100.1300 12.0-15.0 g/dl Low HGB 10.8 LAB L100.1400 37-47 % Low HCT 34.9 LAB L100.1500 81-99 fL Normal MCV 96.4 LAB L100.1600 27.0-32.0 pg Normal MCH 29.8 LAB L100.1700 32-36 g/gl Low MCHC 30.9 LAB L100.1810 11.6-14.6 % Normal RDW CV 14.5 LAB L100.1820 35.1-43.9 fl High RDW SD 48.9 LAB L100.1900 150-450 K/mm3 Normal PLT 261 LAB L100.2000 6.2-12.0 fl High MPV 12.1 Performed By: #### L100.0500 #### [facility] [address] [facility]. [place], [place], [address] BASIC METABOLIC Collected: 07/12/2018 Status: F Source: INGE PROFILE (BMP) 7:00 AM [facility] REPOSITORY Order Comment: 303-2 TYPE CODE TESTS RESULT OUT OF RANGE REFERENCE UNITS LAB L501.0100 74-106 mg/dL Normal GLU 80 Result Comment: Please note revised GLUCOSE reference range effective 2017. LAB L501.1000 7-18 mg/dL High BUN 28 LAB L501.1100 0.55-1.02 mg/dL High CREAT,SERUM 1.23 Result Comment: The validity of the calculated GFR AND GFRAA in patients over 70 years has not been determined. Clinical correlation is essential. LAB L501.1110 >60 mL/min Low EST GFR 45 Result Comment: Non- GFR Calc LAB L501.1115 >60 mL/min Low EST GFR - AA 54 Result Comment: GFR Calc LAB L501.1300 10-20 RATIO High BUN/CRE 22.8 LAB L501.2200 8.5-10.1 mg/dL CA Normal 8.6 LAB L501.5300 136-145 mmol/L NA Normal 140 LAB L501.5600 3.5-5.1 mmol/L K Normal 4.4 LAB L501.5900 98-107 mmol/L CL Normal 106 LAB L501.6100 21.0-32.0 mmol/L Normal CO2 30.0 LAB L501.6200 5-15 Low GAP 4 Performed By: #### L500.2500 #### [facility] [address] [facility] [place], [address] HEMOGLOBIN A1C Collected: 07/12/2018 Status: F Source: INGE 5:00 AM [facility] REPOSITORY Order Comment: 1030:H47 TYPE CODE TESTS RESULT OUT OF RANGE REFERENCE UNITS LAB L501.9985 4.2-6.3 % Normal HGB A1C 6.3 Performed By: #### L501.9985 #### [facility] [address] [place], [address] DISCHARGE SUMMARY Observed: 07/11/2018 Status: F Source: [place] 4:53 PM [facility] REPOSITORY [facility] Medical Records Department [address] [place] [address] Discharge Summary 07/11/18 1107 MR#: [id number] Acct: [id number] Name: NO NOBLE Rep #: [id number] : 1940 78 From: Shavon DOWNS PCP: HIMANSHU Gill Status: DIS DEISY Y Location: [place] [address] <Shavon Bradley - Last Filed: 07/11/18 11:18> Discharge Date and Diagnosis Date of Admission: 07/07/18 Date of Discharge: 07/11/18 - Primary Discharge Diagnosis Active and Suspected Problems (Last Updated 04/13/18 @ 19:54 by Blas Angeles MD) 1. Noncardiac chest pain, musculoskeletal in nature 2. Right shoulder pain/cervical radiculopathy 3. CAD status post CABG 4. Type 2 diabetes mellitus 5. Hypertension 6. History of PE 7. Chronic kidney disease stage III - Secondary Discharge Diagnosis Chronic Problems (Last Updated 04/13/18 @ 19:54 by Blas Angeles MD) Type 2 diabetes mellitus (Chronic) HTN (hypertension) (Chronic) CAD (coronary artery disease) (Chronic) Hx of CABG (Chronic) Carpal tunnel syndrome on right (Chronic) Cervical radicular pain (Chronic) Hospital Course and Treatment Imaging Results: Diagnostic Data Chest X-Ray 07/07/18 13:27 IMPRESSION: Status post CABG. No acute abnormality is seen. Electronically Signed: Jens Thurman MD at 13:54 EDT Tel [phone], Service support , Shoulder X-Ray 07/07/18 17:00 IMPRESSION: 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 Electronically Signed: Luisito Harper DO at 17:17 EDT Tel [phone], Service support , Operations: None Procedures: Stress test Summary of Care Provided: The patient is a 78 year old F admitted 07/07/2018 due to chest pain and right arm pain. She has a past medical history of CAD status post CABG, hypertension, type 2 diabetes mellitus, history of PE on anticoagulation with Xarelto, history of cervical spine stenosis status post surgery, chronic kidney disease stage III. EKG without ST- T changes. Troponin negative. Patient underwent stress test which was negative for ischemia. X-ray of the right shoulder shows stable degenerative changes of the right shoulder. Suspect pain is musculoskeletal in nature, secondary to cervical radiculopathy and degenerative changes of the right shoulder. ACS ruled out. Home gabapentin regimen increased to 300 mg twice daily. Patient can continue as needed pain regimen at discharge to SNF as well as continued PT/OT. Follow-up with primary care physician in 1 week. General: Alert, Oriented x3, Cooperative HEENT: Atraumatic, PERRLA, EOMI Oral: Moist Mucosa, No Gingival or Mucosal Lesions/ Ulcerations Neck: Supple, No JVD, Negative Carotid Bruits Lungs: Clear to auscultation, Normal air movement Cardiovascular: Regular rate, Normal S1, Normal S2, No murmurs Abdomen: Bowel Sounds Present, Soft, Non Tender Extremities: No edema, Capillary Refill Less than 3 Seconds Musculoskeletal: Right shoulder tenderness, increased with range of motion Lymphatic: No Cervical, Supraclavicular, or Inguinal Adenopathy Neurological: Cranial nerves II-XII grossly intact Psych/Mental Status: Normal Affect, Appropriate Patient seen exam prior to discharge. Physical assessment as noted above. Patient stable for discharge to SNF with follow-up with primary care physician in 1 week. This patient was seen by HIMANSHU Marquez under the supervision of Dr. Kowalski. - Physical Exam Vital Signs Temp Pulse Resp BP Pulse Ox 98.7 F 58 L 16 145/86 H 97 07/11/18 08:36 07/11/18 10:46 07/11/18 08:36 07/11/18 08:36 07/11/18 08:36 Oxygen Flow Rate (L/min) 2 Oxygen Delivery Method Room Air Weight: 189 lb 9.561 oz Body Mass Index (BMI) 32.5 Intake and Output for Last 24 Hours Intake Total 1275 / 1275 1115 / 1115 60 / 60 Output Total 200 / 200 Balance 1075 / 1075 1115 / 1115 60 / 60 Laboratory Tests Past 24 Hrs WBC 8.4 RBC 3.56 L Hgb 10.7 L Hct 34.3 L MCV 96.3 MCH 30.1 MCHC 31.2 L RDW 14.6 RDW Differential 49.3 H POC Glucose POC Glucose 93 168 H 183 H POC Glucose 75 Home Medications: Medications to take at Discharge Aspirin E.C. [Ecotrin] 81 mg PO DAILY 03/17/18 Atorvastatin Calcium 40 mg PO DAILY 03/17/18 Ergocalciferol [Vitamin D] 50,000 unit PO MO 03/17/18 Ferrous Sulfate [Iron] 325 mg PO DAILY 03/17/18 Levothyroxine Sodium [Synthroid] 112 mcg PO DAILY 03/17/18 Losartan Potassium [Cozaar] 25 mg PO DAILY 03/17/18 Insulin Glargine,Hum.rec.anlog [Basaglar Kwikpen U-100] 30 unit SQ QHS 04/13/18 Ascorbic Acid [Vitamin C] 500 mg PO DAILY@0800 07/07/18 Insulin Aspart [Novolog Flexpen] 10 units SQ 4X/DAY 07/07/18 Insulin Aspart [Novolog Flexpen] See Protocol SQ .COMPLEX 07/07/18 Metoprolol Tartrate [Lopressor (beta aleida)] 50 mg PO BID 07/07/18 Rivaroxaban [Xarelto] 20 mg PO DAILY 07/07/18 Gabapentin [Neurontin] 300 mg PO BIDCM capsule 07/11/18 Oxycodone [Oxyir] 5 mg PO Q4H PRN PRN 2 Days #10 tab 07/11/18 Following Prescrptions Were Given to Patient: Oxycodone [Oxyir] 5 mg PO Q4H PRN PRN 2 Days #10 tab PRN Reason: Severe Pain (-06/22) Primary Care Physician: Latia Chapa, JESU-C [Primary Care Provider] - Please follow up with your Primary Care Physician in: 1 Week Disposition: [facility] facility Minutes spent on discharge:: 35 Patient Condition:: Stable Medical Necessity - Tobacco Use Smoking Status: Never smoker Tobacco Use: Non-smoker Meaningful Use Info Meaningful Use Diagnoses (Choose all that apply): None applicable <Dirk Kowalski - Last Filed: 07/11/18 16:52> Discharge Date and Diagnosis - Secondary Discharge Diagnosis Chronic Problems (Last Updated 04/13/18 @ 19:54 by Blas Angeles MD) Type 2 diabetes mellitus (Chronic) HTN (hypertension) (Chronic) CAD (coronary artery disease) (Chronic) Hx of CABG (Chronic) Carpal tunnel syndrome on right (Chronic) Cervical radicular pain (Chronic) Hospital Course and Treatment Operations: None Procedures: Stress test Summary of Care Provided: Patient seen and examined independently. Data reviewed. I agree with the above note by the nurse practitioner. The patient is a 78 year old F presents with chest pain. Patient underwent a stress test that was unremarkable. Patient has right arm pain and paresthesias of her right upper extremity. Patient has known radicular symptoms and was seeing a neurosurgeon at [facility]. Patient will need to follow-up with neurosurgery or spine surgery for further follow-up. It is unclear to me if that particular surgeon, Dr. Garcia, will be able to practice. Therefore patient will need to follow-up with another surgeon if he is able to do so. Patient still does have discoordination of her right upper extremity. Patient will need to continue with physical and occupational therapy. [] - Physical Exam General: Alert, Cooperative, No apparent distress HEENT: Atraumatic, Normocephalic Oral: Moist Mucosa, No Gingival or Mucosal Lesions/ Ulcerations Neurological: - - ataxia of RUE. Psych/Mental Status: Normal Affect, Appropriate Vital Signs Temp Pulse Resp BP Pulse Ox 36.9 C 60 16 126/71 H 95 07/11/18 14:36 07/11/18 14:54 07/11/18 14:36 07/11/18 14:36 07/11/18 14:36 Oxygen Flow Rate (L/min) 2 Oxygen Delivery Method Room Air Weight: 86 kg Body Mass Index (BMI) 32.5 Intake and Output for Last 24 Hours Intake Total 1275 / 1275 1115 / 1115 520 / 520 Output Total 200 / 200 Balance 1075 / 1075 1115 / 1115 520 / 520 Laboratory Tests Past 24 Hrs WBC 8.4 RBC 3.56 L Hgb 10.7 L Hct 34.3 L MCV 96.3 MCH 30.1 MCHC 31.2 L RDW 14.6 RDW Differential 49.3 H POC Glucose POC Glucose 140 H 93 168 H POC Glucose 183 H Discharge Diet: No Restrictions Discharge Activity: Return to Normal Activity Disposition: [facility] facility Minutes spent on discharge:: 35 Patient Condition:: Stable Meaningful Use Info Meaningful Use Diagnoses (Choose all that apply): None applicable Code Visit Inpatient E AND M: 11392 Disch Hosp 07/11/18 1119 <Electronically signed by Shavon Bradley NP-C> Date Shavon HOLLANDC 07/11/18 165<Electronically signed by Dirk Kowalski DO> Cosigner Signature (if applicable): Date Dirk Kowalski DO CC: JESU-Loli Bradley; PNP-C Latia Chapa; Dirk Kowalski DO Signed TRANSFER TO EXTENDED Observed: 07/11/2018 Status: F Source: [facility] 1:50 PM [facility] REPOSITORY [facility] Medical Records Department [address] [place] [address] Transfer to Extended Care MR#: [id number] Acct: [id number] Name: NO NOBLE Rep #: [id number] : 1940 78 From: Shavon DOWNS PCP: HIMANSHU Gill Status: ADM DEISY NO NOBLE (Patient) (Health Ins. Claim No.) (Day of Discharge to Facility) Certification of patient admission REQUIRED AT TIME OF ADMISSION. I CERTIFY THAT POST-HOSPITAL ECF SERVICES ARE REQUIRED TO BE GIVEN ON AN IN-PATIENT BASIS BECAUSE OF THE ABOVE NAMED PATIENT'S NEED FOR LONG-TERM CARE ON A CONTINUING BASIS FOR THE CONDITION(S) FOR WHICH HE/SHE WAS RECEIVING IN-PATIENT HOSPITAL SERVICES PRIOR TO HIS/HER TRANSFER TO THE [facility]. 07/11/18 5960 <Electronically signed by Dirk Kowalski DO> Date: - Diet 07/08/18 10:07 Diet: Cardiac/Low Cholesterol Is pt able to select menu?: Yes - Routine Orders/Code Status Enema Type: Fleetz Enema Frequency: Daily PRN Suppository Type: Dulcolax 10mg Suppository Frequency: Daily PRN O2 Liters per Minute: 2 O2 Frequency: PRN Keep PO Greater than or Equal to (%): 90 Routine Lab Work: CBC, BMP, - - Q Week Code Status: Full Code - Suggestions for Active Care Change Position every (hours): 2 Times a day to sit in chair: 3 - Therapies Physical Therapy: Eval and Treat Occupational Therapy: Eval and Treat - Problem/Diagnosis (1) Chest pain Status: Acute Comment: Non-cardiac Current Visit: Yes (2) Right arm pain Status: Acute Current Visit: Yes (3) Type 2 diabetes mellitus Status: Chronic Current Visit: No (4) HTN (hypertension) Status: Chronic Current Visit: No (5) CAD (coronary artery disease) Status: Chronic Current Visit: No (6) Hx of CABG Status: Chronic Current Visit: No (7) Cervical radicular pain Status: Chronic Current Visit: No - Allergies/Procedures Done in Hospital Allergies/Adverse Reactions: Allergies orange juice Allergy (Verified 07/07/18 13:09) Hives Penicillins Allergy (Verified 07/07/18 13:09) Anaphylaxis strawberry Allergy (Verified 07/07/18 13:09) Hives acetaminophen Adverse Reaction (Verified 07/07/18 13:09) Vomiting Sulfa (Sulfonamide Antibiotics) Adverse Reaction (Verified 07/07/18 13:09) Vomiting Procedures: Stress Test - Type of Care/Length of Stay Estimated LOS: Convalescent Care Less Than 30 days Type of Care Needed: Skilled Rehab Potential: Fair Prognosis: Fair - Additional Orders/Day of Discharge H AND P will serve as current which was dated: 07/07/18 Day of Discharge: 07/11/18 - Dietary and Speech Recommendations Dietitian Recommendations/Changes: Suggest diet change to 1800 lucero/cardiac. Continue glucerna shake on medpass for now. - Follow Up Care Primary Care Physician: Latia Chapa, JESU-C [Primary Care Provider] - Please follow up with your Primary Care Physician in: 1 Week 07/11/18 1107 <Electronically signed by Shavon HOLLANDC> Date Shavon HOLLANDC 07/11/18 1350<Electronically signed by Dirk Kowalski DO> Cosigner Signature: Date Dirk Kowalski DO CC: PNP-C Latia Chapa BEDSIDE GLUCOSE Collected: 07/11/2018 Status: F Source: INGE 10:59 AM [facility] REPOSITORY TYPE CODE TESTS RESULT OUT OF REFERENCE UNITS RANGE LAB L501.080 70-110 mg/dL High BEDSIDE GLU 140 Result Comment: MANAGEMENT OF PATIENT CARE PER NURSING PROTOCOL Performed By: #### L501.080 #### [facility] Point of Care [address] [place], [place] [id number] BEDSIDE GLUCOSE Collected: 07/11/2018 Status: F Source: INGE 6:45 AM [facility] REPOSITORY TYPE CODE TESTS RESULT OUT OF RANGE REFERENCE UNITS LAB L501.080 70-110 mg/dL Normal BEDSIDE GLU 93 Result Comment: MANAGEMENT OF PATIENT CARE PER NURSING PROTOCOL Performed By: #### L501.080 #### [facility] Point of Care [address] [place] [address] BASIC METABOLIC Collected: 07/11/2018 Status: F Source: INGE PROFILE (BMP) 5:35 AM [facility] REPOSITORY TYPE CODE TESTS RESULT OUT OF RANGE REFERENCE UNITS LAB L501.0100 74-106 mg/dL Normal GLU 87 Result Comment: Please note revised GLUCOSE reference range effective 2017. LAB L501.1000 7-18 mg/dL High BUN 28 LAB L501.1100 0.55-1.02 mg/dL High CREAT,SERUM 1.27 Result Comment: The validity of the calculated GFR AND GFRAA in patients over 70 years has not been determined. Clinical correlation is essential. LAB L501.1110 >60 mL/min Low EST GFR 43 Result Comment: Non- GFR Calc LAB L501.1115 >60 mL/min Low EST GFR - AA 52 Result Comment: GFR Calc LAB L501.1255 ml/min Normal Estimated CRCL 32.03 LAB L501.1300 10-20 RATIO High BUN/CRE 22.0 LAB L501.2200 8.5-10 mg/dL Low .1 CA 8.4 LAB L501.5300 136-14 mmol/L Normal 5 NA 140 LAB L501.5600 3.5-5. mmol/L Normal 1 K 4.5 LAB L501.5900 98-107 mmol/L Normal CL 104 LAB L501.6100 21.0-3 mmol/L Normal 2.0 CO2 29.0 LAB L501.6200 5-15 Normal GAP 7 Performed By: #### L500.2500, L501.2300, L501.5200 #### [facility] [address] [facility]. [place], [place], [id number] PHOSPHORUS Collected: 07/11/2018 Status: F Source: [place] 5:35 AM [facility] REPOSITORY TYPE CODE TESTS RESULT OUT OF RANGE REFERENCE UNITS LAB L501.2300 2.5-4.9 mg/dL Normal PHOS 4.4 Performed By: #### L500.2500, L501.2300, L501.5200 #### [facility] [address] [place], [place], [id number] MAGNESIUM Collected: 07/11/2018 Status: F Source: [place] 5:35 AM [facility] REPOSITORY TYPE CODE TESTS RESULT OUT OF RANGE REFERENCE UNITS LAB L501.5200 1.6-2.6 mg/dL Normal MG 2.2 Performed By: #### L500.2500, L501.2300, L501.5200 #### [facility] [address] [place], [place], [address] CBC W/DIFF, AUTOMATED Collected: 07/11/2018 Status: F Source: INGE 5:35 AM [facility] REPOSITORY TYPE CODE TESTS RESULT OUT OF RANGE REFERENCE UNITS LAB L100.1000 4.4-11.0 K/mm3 Normal WBC 8.4 LAB L100.1200 4.2-5.4 M/mm3 Low RBC 3.56 LAB L100.1300 12.0-15.0 g/dl Low HGB 10.7 LAB L100.1400 37-47 % Low HCT 34.3 LAB L100.1500 81-99 fL Normal MCV 96.3 LAB L100.1600 27.0-32.0 pg Normal MCH 30.1 LAB L100.1700 32-36 g/gl Low MCHC 31.2 LAB L100.1810 11.6-14.6 % Normal RDW CV 14.6 LAB L100.1820 35.1-43.9 fl High RDW SD 49.3 LAB L100.1900 150-450 K/mm3 Normal PLT 262 LAB L100.2000 6.2-12.0 fl Normal MPV 11.0 LAB L100.2100 47-70 % Normal NEUT% 51.4 LAB L100.2200 19-41 % Normal LY% 34.0 LAB L100.2300 0-10 % Normal MONO% 8.3 LAB L100.2400 0-5 % High EO% 5.5 LAB L100.2500 0-1 % Normal BASO% 0.7 LAB L100.2550 0.0-0.9 % Normal IM GRAN % 0.100 Result Comment: IG% - Immature Granulocytes (promyelocytes, myelocytes and metamyelocytes) > 1% indicates that a LEFT SHIFT is Present. LAB L100.2620 2.0-7.7 X10 3/uL Normal Absolute Neut 4.3 LAB L100.2720 0.83-4.51 X10 3/ul Normal Absolute Lymph 2.84 Performed By: #### L100.0100 #### [facility] [address] [place], [address] BEDSIDE GLUCOSE Collected: 07/10/2018 Status: F Source: INGE 10:08 PM [facility] REPOSITORY TYPE CODE TESTS RESULT OUT OF REFERENCE UNITS RANGE LAB L501.080 70-110 mg/dL High BEDSIDE GLU 168 Result Comment: MANAGEMENT OF PATIENT CARE PER NURSING PROTOCOL Performed By: #### L501.080 #### [facility] Point of Care [address] [place] [address] BEDSIDE GLUCOSE Collected: 07/10/2018 Status: F Source: INGE 4:59 PM [facility] REPOSITORY TYPE CODE TESTS RESULT OUT OF REFERENCE UNITS RANGE LAB L501.080 70-110 mg/dL High BEDSIDE GLU 183 Result Comment: MANAGEMENT OF PATIENT CARE PER NURSING PROTOCOL Performed By: #### L501.080 #### [facility] Point of Care [address] [place] [address] BEDSIDE GLUCOSE Collected: 07/10/2018 Status: F Source: INGE 11:28 AM [facility] REPOSITORY TYPE CODE TESTS RESULT OUT OF RANGE REFERENCE UNITS LAB L501.080 70-110 mg/dL Normal BEDSIDE GLU 75 Result Comment: MANAGEMENT OF PATIENT CARE PER NURSING PROTOCOL Performed By: #### L501.080 #### [facility] Point of Care [address] [place] [address] BEDSIDE GLUCOSE Collected: 07/10/2018 Status: F Source: INGE 6:48 AM [facility] REPOSITORY TYPE CODE TESTS RESULT OUT OF REFERENCE UNITS RANGE LAB L501.080 70-110 mg/dL High BEDSIDE GLU 143 Result Comment: MANAGEMENT OF PATIENT CARE PER NURSING PROTOCOL Performed By: #### L501.080 #### [facility] Point of Care [address] [place] [address] BEDSIDE GLUCOSE Collected: 07/09/2018 Status: F Source: INGE 9:12 PM [facility] REPOSITORY TYPE CODE TESTS RESULT OUT OF REFERENCE UNITS RANGE LAB L501.080 70-110 mg/dL High BEDSIDE GLU 145 Result Comment: MANAGEMENT OF PATIENT CARE PER NURSING PROTOCOL Performed By: #### L501.080 #### [facility] Point of Care [address] [place] [address] BEDSIDE GLUCOSE Collected: 07/09/2018 Status: F Source: INGE 4:41 PM [facility] REPOSITORY TYPE CODE TESTS RESULT OUT OF REFERENCE UNITS RANGE LAB L501.080 70-110 mg/dL High BEDSIDE GLU 125 Result Comment: MANAGEMENT OF PATIENT CARE PER NURSING PROTOCOL Performed By: #### L501.080 #### [facility] Point of Care [address] [place] [address] BEDSIDE GLUCOSE Collected: 07/09/2018 Status: F Source: INGE 11:31 AM [facility] REPOSITORY TYPE CODE TESTS RESULT OUT OF REFERENCE UNITS RANGE LAB L501.080 70-110 mg/dL High BEDSIDE GLU 121 Result Comment: MANAGEMENT OF PATIENT CARE PER NURSING PROTOCOL Performed By: #### L501.080 #### [facility] Point of Care [address] [place] [address] BEDSIDE GLUCOSE Collected: 07/09/2018 Status: F Source: INGE 6:51 AM [facility] REPOSITORY TYPE CODE TESTS RESULT OUT OF RANGE REFERENCE UNITS LAB L501.080 70-110 mg/dL Normal BEDSIDE GLU 82 Result Comment: MANAGEMENT OF PATIENT CARE PER NURSING PROTOCOL Performed By: #### L501.080 #### [facility] Point of Care [address] [place] [address] CBC W/DIFF, AUTOMATED Collected: 07/09/2018 Status: F Source: INGE 6:25 AM [facility] REPOSITORY TYPE CODE TESTS RESULT OUT OF RANGE REFERENCE UNITS LAB L100.1000 4.4-11.0 K/mm3 Normal WBC 8.3 LAB L100.1200 4.2-5.4 M/mm3 Low RBC 3.46 LAB L100.1300 12.0-15.0 g/dl Low HGB 10.4 LAB L100.1400 37-47 % Low HCT 33.5 LAB L100.1500 81-99 fL Normal MCV 96.8 LAB L100.1600 27.0-32.0 pg Normal MCH 30.1 LAB L100.1700 32-36 g/gl Low MCHC 31.0 LAB L100.1810 11.6-14.6 % Normal RDW CV 14.4 LAB L100.1820 35.1-43.9 fl High RDW SD 48.2 LAB L100.1900 150-450 K/mm3 Normal PLT 261 LAB L100.2000 6.2-12.0 fl Normal MPV 10.4 LAB L100.2100 47-70 % Normal NEUT% 58.0 LAB L100.2200 19-41 % Normal LY% 27.1 LAB L100.2300 0-10 % Normal MONO% 9.5 LAB L100.2400 0-5 % Normal EO% 4.6 LAB L100.2500 0-1 % Normal BASO% 0.6 LAB L100.2550 0.0-0.9 % Normal IM GRAN % 0.200 Result Comment: IG% - Immature Granulocytes (promyelocytes, myelocytes and metamyelocytes) > 1% indicates that a LEFT SHIFT is Present. LAB L100.2620 2.0-7.7 X10 3/uL Normal Absolute Neut 4.8 LAB L100.2720 0.83-4.51 X10 3/ul Normal Absolute Lymph 2.26 Performed By: #### L100.0100 #### [facility] [address] [place], [address] COMPREHENSIVE METABOLIC Collected: 07/09/2018 Status: F Source: [facility] 6:25 AM [facility] REPOSITORY TYPE CODE TESTS RESULT OUT OF RANGE REFERENCE UNITS LAB L501.0100 74-106 mg/dL Normal GLU 83 Result Comment: Please note revised GLUCOSE reference range effective 2017. LAB L501.1000 7-18 mg/dL High BUN 21 LAB L501.1100 0.55-1.02 mg/dL High CREAT,SERUM 1.18 Result Comment: The validity of the calculated GFR AND GFRAA in patients over 70 years has not been determined. Clinical correlation is essential. LAB L501.1110 >60 mL/min Low EST GFR 47 Result Comment: Non- GFR Calc LAB L501.1115 >60 mL/min Low EST GFR - AA 57 Result Comment: GFR Calc LAB L501.1255 ml/min Normal Estimated CRCL 34.48 LAB L501.1300 10-20 RATIO Normal BUN/CRE 17.8 LAB L501.1500 6.4-8. g/dL Normal 2 T PROT 6.4 LAB L501.1800 3.2-5. g/dL Low 0 ALB 2.8 LAB L501.1950 2.2-4. g/dL Normal 2 GLOB 3.6 LAB L501.2000 0.9-2. RATIO Low 4 A/G 0.8 LAB L501.2200 8.5-10 mg/dL Normal .1 CA 8.5 LAB L501.4100 15-37 U/L Normal AST 24 LAB L501.4305 45-117 U/L Normal ALK P 75 LAB L501.4405 13-56 U/L Normal ALT 30 LAB L501.4600 0.20-1 mg/dL Normal .00 T BILI 0.40 LAB L501.5300 136-14 mmol/L Normal 5 NA 141 LAB L501.5600 3.5-5. mmol/L Normal 1 K 4.6 LAB L501.5900 98-107 mmol/L Normal CL 106 LAB L501.6100 21.0-3 mmol/L Normal 2.0 CO2 28.0 LAB L501.6200 5-15 Normal GAP 7 Performed By: #### L500.4050, L501.2300, L501.5200 #### [facility] [address] [facility]. [place], [place], [id number] PHOSPHORUS Collected: 07/09/2018 Status: F Source: [place] 6:25 AM [facility] REPOSITORY TYPE CODE TESTS RESULT OUT OF RANGE REFERENCE UNITS LAB L501.2300 2.5-4.9 mg/dL High PHOS 5.1 Performed By: #### L500.4050, L501.2300, L501.5200 #### [facility] [address] [place], [address] MAGNESIUM Collected: 07/09/2018 Status: F Source: [place] 6:25 AM [facility] REPOSITORY TYPE CODE TESTS RESULT OUT OF RANGE REFERENCE UNITS LAB L501.5200 1.6-2.6 mg/dL Normal MG 2.2 Performed By: #### L500.4050, L501.2300, L501.5200 #### [facility] [address] [place], [address] BEDSIDE GLUCOSE Collected: 07/08/2018 Status: F Source: INGE 9:49 PM [facility] REPOSITORY TYPE CODE TESTS RESULT OUT OF REFERENCE UNITS RANGE LAB L501.080 70-110 mg/dL High BEDSIDE GLU 164 Result Comment: MANAGEMENT OF PATIENT CARE PER NURSING PROTOCOL Performed By: #### L501.080 #### [facility] Point of Care [address] [place] [address] BEDSIDE GLUCOSE Collected: 07/08/2018 Status: F Source: INGE 4:33 PM [facility] REPOSITORY TYPE CODE TESTS RESULT OUT OF REFERENCE UNITS RANGE LAB L501.080 70-110 mg/dL High BEDSIDE GLU 179 Result Comment: MANAGEMENT OF PATIENT CARE PER NURSING PROTOCOL Performed By: #### L501.080 #### [facility] Point of Care [address] [place] [address] BEDSIDE GLUCOSE Collected: 07/08/2018 Status: F Source: INGE 11:25 AM [facility] REPOSITORY TYPE CODE TESTS RESULT OUT OF REFERENCE UNITS RANGE LAB L501.080 70-110 mg/dL High BEDSIDE GLU 116 Result Comment: MANAGEMENT OF PATIENT CARE PER NURSING PROTOCOL Performed By: #### L501.080 #### [facility] Point of Care [address] [place] [address] STRESS REPORT Observed: 07/08/2018 Status: F Source: INGE 9:42 AM [facility] REPOSITORY [facility] Cardiovascular Services [address] [facility] [employer] [facility] [facility] [address] [address] MR#: [id number] Acct: [id number] Name: NO NOBLE Rep #: [id number] : 1940 78 From: Jassi Sandoval MD Primary Care: HIMANSHU Gill Status: ADM DEISY Ordering Dr: Sex: F C Stress Test Report Date: 07/08/2018 Procedure: Pharmacologic stress nuclear imaging study Indications: Chest pain; CAD; CABG Consent: Per the patient Procedure: The patient underwent pharmacologic (Regadenoson) evaluation with a peak heart rate of 92 beats per minute (64 predicted maximal heart rate) and a peak blood pressure of 150/70 mmHg. The baseline ECG demonstrated normal sinus rhythm; left bundle branch block pattern. The peak pharmacologic ECG demonstrated no obvious ECG changes. There were occasional PACs in recovery. There was no complaint of chest discomfort during pharmacologic infusion or recovery. The examination was discontinued secondary to completion of protocol. Impression: 1. Pharmacologic (Regadenoson) evaluation 2. Peak pharmacologic ECG with continued left bundle branch block pattern with no obvious ECG changes. 3. There were occasional PACs in recovery. 4. Nuclear images pending Myocardial perfusion imaging study: Technique: The patient was injected with 11.9 millicuries of technetium 99m Cardiolite and subsequently rest SPECT Cardiolite nuclear imaging was obtained in the horizontal long, vertical long, and short axis views. The patient underwent pharmacologic (Regadenoson) evaluation with a peak heart rate of 92 beats per minute (64 % percent predicted maximal heart rate) and a peak blood pressure of 150/70 mmHg. The patient was injected with 34.7 millicuries of technetium 99m Cardiolite and subsequently stress SPECT Cardiolite nuclear imaging was obtained in the horizontal long, vertical long, and short axis views. A gated Cardiolite study at peak stress was obtained. Interpretation: Rest and stress SPECT Cardiolite nuclear imaging status post realignment, normalization, and attenuation correction demonstrate relative uniform tracer uptake and myocardial perfusion appearing within normal limits. There is end systolic thickening and brightening. The gated Cardiolite study demonstrates myocardial thickening and inward wall motion. The reported LVEF is 60 %. Impression: 1. Rest and stress SPECT Cardiolite nuclear imaging demonstrate relative uniform tracer uptake and myocardial perfusion appearing within normal limits. 2. The gated Cardiolite study reports an LVEF of 60 %. This note was generated with [employer] software. It may contain incorrect words, spelling, and punctuation that were not noted in checking the note before signing. 07/08/18941 <Electronically signed by Jassi Sandoval MD> Date Jassi Sandoval MD CC: HIMANSHU Chapa; Jassi Easley MD Date Dictated: 07/08/18938 Date Transcribed: 07/08/18938 Dry Boss: PM Signed BEDSIDE GLUCOSE Collected: 07/08/2018 Status: F Source: INGE 5:36 AM [facility] REPOSITORY TYPE CODE TESTS RESULT OUT OF RANGE REFERENCE UNITS LAB L501.080 70-110 mg/dL Normal BEDSIDE GLU 90 Result Comment: MANAGEMENT OF PATIENT CARE PER NURSING PROTOCOL Performed By: #### L501.080 #### [facility] Point of Care [address] [place], [place] [address] BASIC METABOLIC Collected: 07/08/2018 Status: F Source: INGE PROFILE (BMP) 5:28 AM [facility] REPOSITORY TYPE CODE TESTS RESULT OUT OF RANGE REFERENCE UNITS LAB L501.0100 74-106 mg/dL Normal GLU 92 Result Comment: Please note revised GLUCOSE reference range effective 2017. LAB L501.1000 7-18 mg/dL High BUN 22 LAB L501.1100 0.55-1.02 mg/dL High CREAT,SERUM 1.30 Result Comment: The validity of the calculated GFR AND GFRAA in patients over 70 years has not been determined. Clinical correlation is essential. LAB L501.1110 >60 mL/min Low EST GFR 42 Result Comment: Non- GFR Calc LAB L501.1115 >60 mL/min Low EST GFR - AA 51 Result Comment: GFR Calc LAB L501.1255 ml/min Normal Estimated CRCL 31.29 LAB L501.1300 10-20 RATIO Normal BUN/CRE 16.9 LAB L501.2200 8.5-10 mg/dL Low .1 CA 8.4 LAB L501.5300 136-14 mmol/L Normal 5 NA 144 LAB L501.5600 3.5-5. mmol/L Normal 1 K 4.1 LAB L501.5900 98-107 mmol/L High CL 110 LAB L501.6100 21.0-3 mmol/L Normal 2.0 CO2 28.0 LAB L501.6200 5-15 Normal GAP 6 Performed By: #### L500.2500 #### [facility] [address] [place], [address] CBC W/DIFF, AUTOMATED Collected: 07/08/2018 Status: F Source: INEG 5:28 AM [facility] REPOSITORY TYPE CODE TESTS RESULT OUT OF RANGE REFERENCE UNITS LAB L100.1000 4.4-11.0 K/mm3 Normal WBC 6.8 LAB L100.1200 4.2-5.4 M/mm3 Low RBC 3.53 LAB L100.1300 12.0-15.0 g/dl Low HGB 10.6 LAB L100.1400 37-47 % Low HCT 33.8 LAB L100.1500 81-99 fL Normal MCV 95.8 LAB L100.1600 27.0-32.0 pg Normal MCH 30.0 LAB L100.1700 32-36 g/gl Low MCHC 31.4 LAB L100.1810 11.6-14.6 % High RDW CV 14.7 LAB L100.1820 35.1-43.9 fl High RDW SD 49.3 LAB L100.1900 150-450 K/mm3 Normal PLT 267 LAB L100.2000 6.2-12.0 fl Normal MPV 10.7 LAB L100.2100 47-70 % Normal NEUT% 57.4 LAB L100.2200 19-41 % Normal LY% 27.6 LAB L100.2300 0-10 % Normal MONO% 9.3 LAB L100.2400 0-5 % Normal EO% 4.7 LAB L100.2500 0-1 % Normal BASO% 0.9 LAB L100.2550 0.0-0.9 % Normal IM GRAN % 0.100 Result Comment: IG% - Immature Granulocytes (promyelocytes, myelocytes and metamyelocytes) > 1% indicates that a LEFT SHIFT is Present. LAB L100.2620 2.0-7.7 X10 3/uL Normal Absolute Neut 3.9 LAB L100.2720 0.83-4.51 X10 3/ul Normal Absolute Lymph 1.88 Performed By: #### L100.0100 #### [facility] [address] [place], [address] PROTHROMBIN TIME W/INR Collected: 07/08/2018 Status: F Source: [place] 5:28 AM [facility] REPOSITORY TYPE CODE TESTS RESULT OUT OF RANGE REFERENCE UNITS LAB L300.4150 11.7-14.9 SECONDS High PROTIME 20.4 LAB L300.4200 Normal INR 1.7 Performed By: #### L300.3900, L300.4310 #### [facility] [address] [place], [address] PARTIAL THROMBOPLAST Collected: 07/08/2018 Status: F Source: INGE TIME 5:28 AM [facility] REPOSITORY TYPE CODE TESTS RESULT OUT OF REFERENCE UNITS RANGE LAB L300.4310 24.1-36.2 Seconds High PTT 38.0 Performed By: #### L300.3900, L300.4310 #### [facility] [address] [place], [address] BEDSIDE GLUCOSE Collected: 07/07/2018 Status: F Source: INGE 10:21 PM [facility] REPOSITORY TYPE CODE TESTS RESULT OUT OF RANGE REFERENCE UNITS LAB L501.080 70-110 mg/dL Normal BEDSIDE GLU 103 Result Comment: MANAGEMENT OF PATIENT CARE PER NURSING PROTOCOL Performed By: #### L501.080 #### [facility] Point of Care [address] [facility] [place] [address] HISTORY AND PHYSICAL Observed: 07/07/2018 Status: F Source: INGE EXAM 8:54 PM [facility] REPOSITORY [facility] Medical Records Department [address] [place] [id number] History and Physical 07/07/18 1544 MR#: [id number] Acct: [id number] Name: NO NOBLE Rep #: [id number] : 1940 78 From: Claudia Cruz MD PCP: Latia Chapa, PNP-C Status: ADM DEISY Y Location: [place] [address] Problem List (1) Chest pain Status: Acute (2) Right arm pain Status: Acute History of Present Illness Date of Admission: 07/07/18 Chief Complaint: chest pain; right arm pain The patient is a 78 year old F with a history of CAD status post CABG, hypertension, diabetes and hypercholesterolemia. She also has a history of cervical spine stenosis and had a recent surgery due to cervical radiculopathy. She also has a history of BPPV. She was admitted on 07/07/2018 through the ED with a complaint of chest pain which started this afternoon while she was playing bingo with her friend she described as a stabbing chest pain which radiated to her right shoulder. It was sudden and then went away. Subsequently she had pressure-like retrosternal chest pain which she rated about 3 out of 10 and also radiated to the left shoulder. She denied any assisted lightheadedness or dizziness, palpitations, nausea vomiting. She did complain of persistent right shoulder pain with radiation down her right arm with associated tingling which is not new but states is worsened. She denied any fever or chills review of systems otherwise negative. EKG done in the ED showed sinus rhythm with rate of 63 and left bundle branch block. Chest x-ray showed no acute cardiopulmonary process. Troponin was less than 0.015. Was 1.29 which on her baseline. She has been admitted to be managed for chest pain and right shoulder pain. [] Past Medical History Past Medical History (Chronic Problems): Chronic Problems (Last Updated 04/13/18 @ 19:54 by Blas Angeles MD) Type 2 diabetes mellitus (Chronic) HTN (hypertension) (Chronic) CAD (coronary artery disease) (Chronic) Hx of CABG (Chronic) Carpal tunnel syndrome on right (Chronic) Cervical radicular pain (Chronic) Medical History: Medical History (Last Updated 04/13/18 @ 19:54 by Blas Angeles MD) HTN (hypertension) I10 Allergies orange juice Allergy (Verified 07/07/18 13:09) Hives Penicillins Allergy (Verified 07/07/18 13:09) Anaphylaxis strawberry Allergy (Verified 07/07/18 13:09) Hives acetaminophen Adverse Reaction (Verified 07/07/18 13:09) Vomiting Sulfa (Sulfonamide Antibiotics) Adverse Reaction (Verified 07/07/18 13:09) Vomiting Home Medications: Ambulatory Orders Medication Instructions Recorded Surgical History: coronary bypass surgery, - - Right carpal tunnel surgery Psychiatric History: No pertinent psych hx [employer] CONS[employer]ANT History: 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 Denies: Chest Tightness, Orthopnea, Palpitations, Paroxysmal Noc. Dyspnea, Syncope Respiratory: Denies: Cough, Shortness of breath at rest, Sputum production Gastrointestinal: Denies: Abdominal Pain, Constipation, Diarrhea, Nausea, Vomiting Genitourinary: Denies: Dysuria Musculoskeletal: Reports: Arm Pain - right arm and right shoulder pain, with tingling and numbness radiating down her right arm., Shoulder Pain Skin: Denies: Rash, Wounds Neurological: Reports: Numbness, Tingling - numbness and tingling of her right shoulder, radiating down her right arm. Denies: Blurred vision, Tremor Psychiatric: Denies: Anxiety, Depression, Homicidal Ideations, Suicidal Ideations Hematologic/ Lymphatic: Denies: Easy Bruising, Easy Bleeding VTE Information - Inpt Only VTE Present on Admission: No VTE Pharm Prophylaxis ordered?: Yes Patient Problems: Active and Suspected Problems (Last Updated 04/13/18 @ 19:54 by Blas Angeles MD) Chest pain (Acute) Right arm pain (Acute) - Physical Exam General: Alert, Oriented x3, Cooperative, No apparent distress, - - patient looks uncomfortable HEENT: Atraumatic, PERRLA, EOMI, Normocephalic Oral: Moist Mucosa Neck: Supple, No JVD, Negative Carotid Bruits Lungs: Clear to auscultation, Normal air movement, No rhonchi, No wheeze, No rales Cardiovascular: Regular rate, Regular Rhythm, Normal S1, Normal S2, No murmurs Abdomen: Bowel Sounds Present, Soft, Non Tender, Non-Distended, No Hepato-splenomegaly Extremities: No clubbing, No cyanosis, No edema, Capillary Refill Less than 3 Seconds Skin: No rashes, No breakdown Musculoskeletal: - - tenderness to palpation of her right shoulder and right arm.tingling and numbness of right arm Lymphatic: No Cervical, Supraclavicular, or Inguinal Adenopathy Neurological: Cranial nerves II-XII grossly intact, - - reduced power of 4/5 in right upper extremity with mild decreased sensation to pinprick and light touch Psych/Mental Status: Normal Affect, Appropriate, Alert and oriented to time, place, person, mood and affect Vital Signs Temp Pulse Resp BP Pulse Ox 98.7 F 59 L 18 140/86 H 98 07/07/18 13:05 07/07/18 15:09 07/07/18 15:09 07/07/18 15:09 07/07/18 15:09 Oxygen Flow Rate (L/min) 2 Oxygen Delivery Method Room Air Weight: 190 lb Body Mass Index (BMI) 32.5 Laboratory Tests Past 24 Hrs WBC 10.6 RBC 4.11 L Hgb 11.9 L Hct 38.2 MCV 92.9 MCH 29.0 MCHC 31.2 L RDW 14.4 RDW Differential 48.8 H Assessment/Plan All Active Problems (Last Updated 04/13/18 @ 19:54 by Blas Angeles MD) Chest pain (Acute) Right arm pain (Acute) Vertigo, peripheral (Resolved) Chest pain, unspecified (Acute) 78-year-old female presenting with chest pain and right shoulder and arm pain. 1. Chest pain, to rule out ACS * Chest pain pressure-like and retrosternal. EKG showed no acute cardia pulmonary process. * Admit to PCU with telemetry. * Initial troponin was negative. We will cycle. * Stress test in the morning. * Been on nitroglycerin as needed and aspirin 81 mg daily. * 2. CAD status post CABG: On aspirin, statin and metoprolol. 3. Right shoulder pain: * has a history of cervical spine stenosis and radiculopathy, and is s/p surgery af ew months ago. S * ymptoms do seem like radiculopathy. She is currently on gabapentin. Will continue. * X-ray ordered of the right shoulder. * tyelenol and morphine for pain * 4. Diabetes mellitus: on insulin 30mg daily and ISS. Checks before meals at bedtime. 5. Hypertension: On losartan and metoprolol. Will continue. 6. History of cervical spine stenosis status post surgery. On gabapentin. 7. History of PE: had PE in 04/20. with CTA showing several small peripheral intraluminal filling defect involving pulmonary branches. On Xarelto. COde status:Full code. * patient, sister and brother in law were counselled about different types of code status including full code, DNRCC and DNRCCA. Pateint elects to be full code. Total face to face time 17 mins. Code Visit OBSV E AND M: 77620 Initial observation care L3 Procedures: 93583 Advncd Care Plan 30 Min 07/07/182053 <Electronically signed by Claudia Cruz MD> Date Claudia Cruz MD Cosigner Signature: Date (if applicable) CC: PNPKristopher Chapa; Claudia Cruz MD Signed TROPONIN-I Collected: 07/07/2018 Status: F Source: [place] 7:11 PM [facility] REPOSITORY Order Comment: 'TROP' Serial specimen #1, #2 or #3: 3 TYPE CODE TESTS RESULT OUT OF RANGE REFERENCE UNITS LAB L501.4010 <0.045 ng/mL Normal < 0.015 TROPONIN-I Result Comment: TROPONIN-I EXPECTED VALUES <0.045 Negative 0.045 - 0.590 Consistent with Cardiac Damage > OR = 0.600 Critical Value Not every elevated troponin is indicative of [place]. These values should be used with clinical judgement in examining the patient's clinical picture for diagnosis. To establish a diagnosis of [place] versus myocardial injury, there must be a demonstrated rise and/or fall in the troponin values, in addition to ischemic symptoms, EKG changes, new regional wall motion abnormality, and/or angiographical evidence. PLEASE NOTE: REFERENCE RANGES EDITED 18 Performed By: #### L501.4010 #### [facility] [address] [place], [address] BEDSIDE GLUCOSE Collected: 07/07/2018 Status: F Source: INGE 4:47 PM [facility] REPOSITORY TYPE CODE TESTS RESULT OUT OF RANGE REFERENCE UNITS LAB L501.080 70-110 mg/dL Normal BEDSIDE GLU 89 Result Comment: MANAGEMENT OF PATIENT CARE PER NURSING PROTOCOL Performed By: #### L501.080 #### [facility] Point of Care [address] [place] [address] TROPONIN-I Collected: 07/07/2018 Status: F Source: [place] 4:23 PM [facility] REPOSITORY Order Comment: 'TROP' Serial specimen #1, #2 or #3: 2 TYPE CODE TESTS RESULT OUT OF RANGE REFERENCE UNITS LAB L501.4010 <0.045 ng/mL Normal < 0.015 TROPONIN-I Result Comment: TROPONIN-I EXPECTED VALUES <0.045 Negative 0.045 - 0.590 Consistent with Cardiac Damage > OR = 0.600 Critical Value Not every elevated troponin is indicative of [place]. These values should be used with clinical judgement in examining the patient's clinical picture for diagnosis. To establish a diagnosis of [place] versus myocardial injury, there must be a demonstrated rise and/or fall in the troponin values, in addition to ischemic symptoms, EKG changes, new regional wall motion abnormality, and/or angiographical evidence. PLEASE NOTE: REFERENCE RANGES EDITED 18 Performed By: #### L501.4010 #### [facility] [address] [place], [address] SHOULDER MIN 2 VIEWS Observed: 07/07/2018 Status: F Source: [place] 4:13 PM [facility] REPOSITORY [facility] Imaging Services [address] [place] [address] Shoulder min 2 Views MR#: [id number] Acct: [id number] Name: NO NOBLE Rep #: [id number] : 1940 F 78 From: Luisito Harper DO PCP: SKYLER GillC Status: ADM DEISY Study: Shoulder min 2 Views Date of Exam: 07/07/18 Exam# [id number] Ordering Dr: Claudia Cruz MD STUDY: X-RAY - RIGHT SHOULDER REASON FOR EXAM: Female, 78 years old. Right shoulder pain beginning this morning. Chest pain earlier today that has resolved. TECHNIQUE: 4 view(s) of the shoulder. COMPARISON: Right humerus, May 24, 2018. Right shoulder, March 17, 2018 FINDINGS: There is mild degenerative arthrosis of the glenohumeral articulation. There is degenerative arthrosis of the acromioclavicular joint without inferior osseous spur formation. Normal acromion. There is no acute fracture, dislocation or destructive osseous pathology. Normal humeral head and visualized proximal humerus. The soft tissue structures are unremarkable. Again seen is anterior fusion cervical spine and evidence of median sternotomy. Normal visualized pulmonary apex. RAD/Shoulder min 2 Views IMPRESSION: 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 Electronically Signed: Luisito Harper DO at 17:17 EDT Tel [phone], Service support , CC: HIMANSHU Chapa; Claudia Cruz MD Dry Boss: Signed EMERGENCY DEPARTMENT Observed: 07/07/2018 Status: F Source: [place] SUMMARY 3:04 PM [facility] REPOSITORY [facility] Medical Records Department [address] [place] [address] Emergency Department Summary 07/07/18 1500 MR#: [id number] Acct: [id number] Name: NO NOBLE Rep #: [id number] : 1940 78 From: Tello Valdez MD PCP: HIMANSHU Gill Status: REG ER - ER Visit Summary Date of Service: 07/07/18 Chief Complaint: Midsternal chest discomfort described as a dull aching pain with bilateral upper extremity pain that is severe. She reported nausea with mild shortness of breath. No diaphoresis. This occurred while playing bingo. History of Present Illness: The patient is a 78 F who presents with chest pain with radiation to both upper extremities associated with nausea and mild dyspnea. This occurred while playing bingo. She does have history of coronary disease with three- vessel bypass surgery 10 years ago at [facility]. She has history of type 2 diabetes 20+ years, hypertension for 20+ years and hypercholesterolemia for 10 years. She had recent surgery cervical spine secondary to cervical radiculopathy. She also has history of benign paroxysmal positional vertigo. She has no other complaints on review of systems. Physical Examination: Patient appears uncomfortable. Head is atraumatic normocephalic. Pupils are equal round reactive. Extraocular muscles are intact. TMs are pearly white with landmarks noted. Nares patent with no drainage. Posterior pharynx without erythema or exudate. Uvula is midline. There is no dysphonia or dysphasia. Trachea is midline. There is no stridor with auscultation of the neck. Heart is regular without murmur, gallop or rub. S1 and S2 are normal. Lungs are clear to auscultation with good movement of air bilaterally. There is no reproducible chest pain. Abdomen is soft nontender with no paraspinal megaly. Negative Avila sign. There is no CVA tenderness noted. There is edema noted of both lower extremities. There is no discoloration, asymmetry, ligament distention, palpable coarseness on suspicion deep venous system. Test Results: EKG revealed a sinus rhythm rate of 63 with a left bundle branch block. VA interval is normal. There is no acute ischemic changes noted. Portable chest x-ray reveals normal cardiac silhouette. There is no evidence of failure or effusion. Mediastinum is normal. Sternotomy wires noted. CBC reveals mild anemia with a hemoglobin 11.9. Creatinine is elevated 1.29. Her troponin is less than 0.015. Emergency Department Course and Treatment: EKG, chest x-ray and blood work was obtained to evaluate patient's chest pain to determine cardiac versus noncardiac etiology. She did receive nitroglycerin with improvement. She also received morphine. Treatment Plan: Admit observation status PCU Disposition: PCU Impression: 1. Chest pain 2. History coronary disease 3. History of hypertension 4. History of diabetes 5. History of hypercholesterolemia This note was generated with [employer] dictation software. It may contain incorrect words, spelling, and punctuation that were not noted in review of the chart prior to signing ED Disposition - Plan for ED Patient: Chief Complaint: Chest Pain Referrals: Latia Chapa, JESU-C [Primary Care Provider] - What to do if you have Problems For any increased pain, shortness of breath, bleeding, nausea or vomiting, chest pain, or any unexpected problems, contact your Primary Care Provider. Call [facility] ([phone]) or report to the closest Emergency Room. Call 911 if necessary. 07/07/18 1504 <Electronically signed by Tello Valdez MD> Date Tello Valdez MD Cosigner Signature (If Indicated): Date CC: PNP-C Latia Chapa CHEST 1 VIEW Observed: 07/07/2018 Status: F Source: [place] (PORTABLE) 1:27 PM [facility] REPOSITORY [facility] Imaging Services [address] [place] [address] Chest 1 View (Portable) MR#: [id number] Acct: [id number] Name: NO NOBLE Rep #: [id number] : 1940 F 78 From: Jens Thurman MD PCP: HIMANSHU Gill Status: PRE ER Study: Chest 1 View (Portable) Date of Exam: 07/07/18 Exam# [id number] Ordering Dr: Tello Valdez MD STUDY: X-RAY CHEST REASON FOR EXAM: Female, 78 years old. Chest pain. Bilateral arm pain. TECHNIQUE: Single AP portable view of the chest. COMPARISON: Comparison is made with prior study May 24, 2018. FINDINGS: EKG electrodes are seen. The lungs are clear and expanded. There is no demonstrated pleural abnormality. Sternal cerclage wires and vascular clips are present from a prior sternotomy and coronary artery bypass graft procedure (CABG). Normal mediastinum and holli. Normal visualized pulmonary arteries. There is atherosclerotic calcification of the aortic arch with tortuosity. There are diffuse degenerative changes of the visualized thoracic spine. Normal visualized ribs, clavicles, and shoulders. There is no demonstrated abnormality of the visualized soft tissue structures of the upper abdomen. RAD/Chest 1 View (Portable) IMPRESSION: Status post CABG. No acute abnormality is seen. Electronically Signed: Jens Thurman MD at 13:54 EDT Tel [phone], Service support , CC: HIMANSHU Chapa; Tello Valdez MD Dry Boss: Signed CBC W/DIFF, AUTOMATED Collected: 07/07/2018 Status: F Source: INGE 1:14 PM [facility] REPOSITORY TYPE CODE TESTS RESULT OUT OF RANGE REFERENCE UNITS LAB L100.1000 4.4-11.0 K/mm3 Normal WBC 10.6 LAB L100.1200 4.2-5.4 M/mm3 Low RBC 4.11 LAB L100.1300 12.0-15.0 g/dl Low HGB 11.9 LAB L100.1400 37-47 % Normal HCT 38.2 LAB L100.1500 81-99 fL Normal MCV 92.9 LAB L100.1600 27.0-32.0 pg Normal MCH 29.0 LAB L100.1700 32-36 g/gl Low MCHC 31.2 LAB L100.1810 11.6-14.6 % Normal RDW CV 14.4 LAB L100.1820 35.1-43.9 fl High RDW SD 48.8 LAB L100.1900 150-450 K/mm3 Normal PLT 294 LAB L100.2000 6.2-12.0 fl Normal MPV 11.2 LAB L100.2100 47-70 % Normal NEUT% 65.9 LAB L100.2200 19-41 % Normal LY% 23.8 LAB L100.2300 0-10 % Normal MONO% 6.8 LAB L100.2400 0-5 % Normal EO% 3.0 LAB L100.2500 0-1 % Normal BASO% 0.4 LAB L100.2550 0.0-0.9 % Normal IM GRAN % 0.100 Result Comment: IG% - Immature Granulocytes (promyelocytes, myelocytes and metamyelocytes) > 1% indicates that a LEFT SHIFT is Present. LAB L100.2620 2.0-7.7 X10 3/uL Normal Absolute Neut 7.0 LAB L100.2720 0.83-4.51 X10 3/ul Normal Absolute Lymph 2.52 Performed By: #### L100.0100 #### [facility] [address] [facility] [place], [address] BASIC METABOLIC Collected: 07/07/2018 Status: F Source: [place] PROFILE (BMP) 1:14 PM [facility] REPOSITORY TYPE CODE TESTS RESULT OUT OF RANGE REFERENCE UNITS LAB L501.0100 74-106 mg/dL High GLU 128 Result Comment: Fasting Glucose result greater than or equal to 126 mg/dL suggests DIABETES MELLITUS per A.D.A. criteria. Please note revised GLUCOSE reference range effective 2017. LAB L501.1000 7-18 mg/dL High BUN 19 LAB L501.1100 0.55-1.02 mg/dL High CREAT,SERUM 1.29 Result Comment: The validity of the calculated GFR AND GFRAA in patients over 70 years has not been determined. Clinical correlation is essential. LAB L501.1110 >60 mL/min Low EST GFR 43 Result Comment: Non- GFR Calc LAB L501.1115 >60 mL/min Low EST GFR - AA 52 Result Comment: GFR Calc LAB L501.1255 ml/min Normal Estimated CRCL 31.54 LAB L501.1300 10-20 RATIO Normal BUN/CRE 14.7 LAB L501.2200 8.5-10 mg/dL Normal .1 CA 9.2 LAB L501.5300 136-14 mmol/L Normal 5 NA 140 LAB L501.5600 3.5-5. mmol/L Normal 1 K 3.7 LAB L501.5900 98-107 mmol/L Normal CL 107 LAB L501.6100 21.0-3 mmol/L Normal 2.0 CO2 24.0 LAB L501.6200 5-15 Normal GAP 9 Performed By: #### L500.2500, L501.4010 #### [facility] [address] [facility] [place], [address] TROPONIN-I Collected: 07/07/2018 Status: F Source: [place] 1:14 PM [facility] REPOSITORY TYPE CODE TESTS RESULT OUT OF RANGE REFERENCE UNITS LAB L501.4010 <0.045 ng/mL Normal < 0.015 TROPONIN-I Result Comment: TROPONIN-I EXPECTED VALUES <0.045 Negative 0.045 - 0.590 Consistent with Cardiac Damage > OR = 0.600 Critical Value Not every elevated troponin is indicative of [place]. These values should be used with clinical judgement in examining the patient's clinical picture for diagnosis. To establish a diagnosis of [place] versus myocardial injury, there must be a demonstrated rise and/or fall in the troponin values, in addition to ischemic symptoms, EKG changes, new regional wall motion abnormality, and/or angiographical evidence. PLEASE NOTE: REFERENCE RANGES EDITED 18 Performed By: #### L500.2500, L501.4010 #### [facility] [address] [place], [address] 12 LEAD ELECTROCARDIOGRAM Observed: 05/27/2018 Status: F Source: [place] 1:16 PM [facility] REPOSITORY [facility] Cardiovascular Services [address] [place] [address] [place] [address] 12 Lead EKG 05/24/18 1722 MR#: [id number] Acct: [id number] Name: NO NOLBE Rep #: [id number] : 1940 78 From: Shan Henry MD Attending Dr: Status: DEP ER Ordering Dr: Belgica Mtz MD Date: 05/24/18 Location: ED Sex: F C Admitted: Test Reason : Blood Pressure : / mmHG Vent. Rate : 061 BPM Atrial Rate : 061 BPM P-R Int : 166 ms QRS Dur : 146 ms QT Int : 504 ms P-R-T Axes : 061 -44 102 degrees QTc Int : 507 ms Normal sinus rhythm Left axis deviation Left bundle branch block Abnormal ECG Confirmed by SHAN HENRY MD ([id number]), editor farm journal DAMIAN MCCRACKEN ([id number]) on 05/27/2018 1:16:14 PM Referred By: VIOLET Confirmed By:SHAN HENRY MD 05/27/18 1316 Date Shan Henry MD CC: PNP-C Latia Chapa; Belgica Mtz MD Signed CMP Collected: 05/26/2018 Status: F Source: [facility] 9:40 AM [facility] REPOSITORY TYPE CODE TESTS RESULT OUT OF REFERENCE UNITS RANGE LAB GLU(LOINC) 83-110 mg/dL Glucose Level 94 LAB NA(LOINC) 136-145 mmol/L Sodium Level 142 LAB K(LOINC) 3.5-5.1 mmol/L Potassium Level 4.7 LAB CL(LOINC) 98-107 mmol/L Chloride 105 LAB CO2(LOINC) 23-31 mmol/L CO2 26 LAB EBAL(LOINC mEq/L ) Electrolyte Balance 11.0 LAB BUN(LOINC) 7-18 mg/dL BUN High 28 LAB CRE(LOINC) 0.55-1.02 mg/dL Creatinine High Lvl (s) 1.36 LAB BC(LOINC) 7-27 ratio BUN/Creatinine 21 Ratio LAB CA(LOINC) 8.4-10.2 mg/dL Calcium Lvl 9.3 LAB PROT(LOINC 6.4-8.2 G/dL ) Total Protein 7.5 LAB ALB(LOINC) 3.4-4.8 G/dL Albumin Level 4.0 LAB GLB(LOINC) G/dL Globulin 3.5 LAB AG(LOINC) 1.1-2.5 ratio A/G Ratio 1.1 LAB BILT(LOINC 0.2-1.0 mg/dL ) Bili Total 0.4 LAB AP(LOINC) 40-135 U/L Alk Phos 90 LAB AST(LOINC) 10-40 U/L AST/SGOT 21 LAB ALT(LOINC) 10-35 U/L ALT/SGPT 30 Performed By: #### CMP, TSH, GFR, FT4, VIDH #### [address] [address] #### CBC, ADIFF, ANEU #### [place] [address] [place], [place] [address] TSH Collected: 05/26/2018 Status: F Source: [facility] 9:40 AM [facility] REPOSITORY TYPE CODE TESTS RESULT OUT OF RANGE REFERENCE UNITS LAB TSH(LOINC) 0.36-3.74 mcIU/mL TSH 2.03 Performed By: #### CMP, TSH, GFR, FT4, VIDH #### [address] [address] #### REBEL, AKHILIFF, ANEU #### [address] [place], [place] [address] .GFR Collected: 05/26/2018 Status: F Source: [facility] 9:40 AM [facility] REPOS[facility] TYPE CODE TESTS RESULT OUT OF REFERENCE UNITS RANGE LAB GFRAA(LOINC ml/min/1.73 ) sqm GFR 46 [place] Result Comment: GFR Population mean for , Non- Americans Ages 20-29 = 116 mL/min/1.73 sq.m. Ages 30-39 = 107 mL/min/1.73 sq.m. Ages 40-49 = 99 mL/min/1.73 sq.m. Ages 50-59 = 93 mL/min/1.73 sq.m. Ages 60-69 = 85 mL/min/1.73 sq.m. Ages 70+ = 75 mL/min/1.73 sq.m. Chronic Kidney Disease: Less than 60 mL/min/1.73 square meters End Stage Renal Disease: Less than 15 mL/min/1.73 square meters LAB GFRNO(LOINC) ml/min/1.73sqm GFR Non- 38 Result Comment: GFR Population mean for , Non- Americans Ages 20-29 = 116 mL/min/1.73 sq.m. Ages 30-39 = 107 mL/min/1.73 sq.m. Ages 40-49 = 99 mL/min/1.73 sq.m. Ages 50-59 = 93 mL/min/1.73 sq.m. Ages 60-69 = 85 mL/min/1.73 sq.m. Ages 70+ = 75 mL/min/1.73 sq.m. Chronic Kidney Disease: Less than 60 mL/min/1.73 square meters End Stage Renal Disease: Less than 15 mL/min/1.73 square meters Performed By: #### CMP, TSH, GFR, FT4, VIDH #### [address] [address] #### CBC, ADIFF, ANEU #### [place] [address] [place], [place] [address] FT4 Collected: 05/26/2018 Status: F Source: [facility] 9:40 AM [facility] REPOSITORY TYPE CODE TESTS RESULT OUT OF RANGE REFERENCE UNITS LAB FT4(LOINC) 0.76-1.46 ng/dL Free T4 0.99 Performed By: #### CMP, TSH, GFR, FT4, VIDH #### [place] [id number] #### CBC, ADTRANG, ANEU #### [address] [address] CBC Collected: 05/26/2018 Status: F Source: [facility] 9:40 AM [facility] REPOSITORY TYPE CODE TESTS RESULT OUT OF REFERENCE UNITS RANGE LAB WBC(LOINC) 4.60-10.80 10 3/mcL High WBC 12.10 LAB RBCCT(LOINC 4.20-5.40 10 6/mcL ) Low RBC 3.89 LAB HGB(LOINC) 12.0-16.0 G/dL Low Hgb 11.9 LAB HCT(LOINC) 37.0-47.0 % Low Hct 36.1 LAB MCV(LOINC) 80.0-94.0 fL MCV 92.8 LAB MCH(LOINC) 27.0-31.2 pg MCH 30.6 LAB MCHC(LOINC) 33.0-37.0 G/dL Low MCHC 32.9 LAB RDW(LOINC) 11.5-14.5 % High RDW 16.8 LAB PLT(LOINC) 130-400 10 3/mcL Platelet 361 LAB MPV(LOINC) 7.4-10.4 fL High MPV 12.4 Performed By: #### CMP, TSH, GFR, FT4, VIDH #### [place] [id number] #### CBC, ADIFF, ANEU #### [address] [address] .AUTO DIFF Collected: 05/26/2018 Status: F Source: [facility] 9:40 AM [facility] REPOSITORY TYPE CODE TESTS RESULT OUT OF REFERENCE UNITS RANGE LAB LEE(LOINC) 37.0-80.0 % Neutrophil % 68.4 LAB LYM(LOINC) 10.0-50.0 % Lymphocyte % 21.5 LAB MON(LOINC) 1.7-13.0 % Monocyte % 5.2 LAB EO(LOINC) 0.0-7.0 % Eosinophil % 3.8 LAB BAS(LOINC) 0.0-2.5 % Basophil % 1.1 LAB ABLYM(LOIN 0.77-3.85 10 3/mcL C) Lymphocyte, 2.60 Absolute LAB SLOAN(LOINC 0.15-1.00 10 3/mcL ) Monocyte, 0.60 Absolute LAB AEOS(LOINC 0.00-0.40 10 3/mcL ) High Eosinophil, 0.50 Absolute LAB ABAS(LOINC 0.00-0.19 10 3/mcL ) Basophil, 0.10 Absolute Performed By: #### CMP, TSH, GFR, FT4, VIDH #### [place] [address] #### CBC, ADIFF, ANEU #### [address] [address] .NEUABS Collected: 05/26/2018 Status: F Source: [facility] 9:40 AM [facility] REPOSITORY TYPE CODE TESTS RESULT OUT OF REFERENCE UNITS RANGE LAB ANEU(LOINC) 2.85-6.16 10 3/mcL High Neutrophil, 8.30 Absolute Performed By: #### CMP, TSH, GFR, FT4, VIDH #### [place] [address] #### CBC, ADIFF, ANEU #### [address] [address] VIDH Collected: 05/26/2018 Status: F Source: [facility] 9:40 AM [facility] REPOSITORY TYPE CODE TESTS RESULT OUT OF RANGE REFERENCE UNITS LAB VIDH(LOINC) ng/mL Vit. D 73 25-Hydroxy Result Comment: Interpretive Values Based on Total 25(OH)D: Severe Deficiency <20 ng/mL Mild to Moderate Deficiency 20-30 ng/mL Optimum Levels 30-100 ng/mL Toxicity Possible >100 ng/mL Performed By: #### CMP, TSH, GFR, FT4, VIDH #### [place] [address] #### CBC, ADIFF, ANEU #### [place] [place] [address] [place], [place] [address] EMERGENCY DEPARTMENT Observed: 05/25/2018 Status: F Source: [place] SUMMARY 12:19 AM [facility] REPOSITORY [facility] Medical Records Department [address] [place] [address] Emergency Department Summary 05/24/18 1523 MR#: [id number] Acct: [id number] Name: NO NOBLE Rep #: [id number] : 1940 78 From: Belgica Mtz MD PCP: Latia Chapa, SKYLERC Status: DEP ER - ER Visit Summary Date of Service: 05/24/18 Chief Complaint: Fall History of Present Illness: The patient is a 78 F who lost her balance getting off the commode and fell forward, landing on her right side. She denies loss of consciousness. She is complaining of pain to her entire right arm and her back just behind her right shoulder. She also has mild pain to the right knee. Patient is currently on Xarelto secondary to recent diagnosis of pulmonary emboli. Physical Examination: Blood pressure is 167/62, other vitals normal. Patient is lying supine in the bed. She is in no acute distress. She is alert and answers questions appropriately. Head neck examination reveals no obvious external sign of trauma. No reproducible neck pain. Heart is regular rate and rhythm. Lung sounds are clear. Chest wall is nontender. Abdomen is soft and nontender. Pelvis is stable. Upper extremity examination reveals mild diffuse tenderness throughout the right upper extremity. There is no obvious sign of deformity or dislocation. She is a strong hand grasp. Strong pulses are noted. Lower extremity examination reveals mild diffuse tenderness around the right knee. No obvious deformity noted. Strong distal pulses noted. Test Results: Right knee x-rays reveal degenerative arthrosis. Right humeral x-rays normal. Right forearm normal. Chest x-ray shows no acute findings. CT head shows chronic involutional changes. CT C-spine shows multilevel degenerative changes with postop changes at C4-C5. Emergency Department Course and Treatment: Patient was given a dose of fentanyl and Zofran. On repeat evaluation she did feel improved. I was talking to her about discharge she stated that she now remembered that she felt very dizzy like she might pass out before she fell. She states this is been ongoing for quite some time it seemed worse today. At that time an EKG is obtained that shows sinus rhythm at 61 bpm with a left bundle branch block. CBC was a white count 12.1 hemoglobin 10.7. Chemistry studies reveal BUN 20 creatinine 1.28. Her glucose is 203. Urinalysis is normal. Patient is able to get up and ambulate down the norris and back. She will be given oxycodone for home as she did well with this after her recent discharge. Treatment Plan: [] Disposition: Discharge Impression: 1. Mechanical fall 2. Right upper extremity contusion This note was generated with [employer] software. It may contain incorrect words, spelling, and punctuation that were not noted in review of the chart prior to signing ED Disposition - Plan for ED Patient: Chief Complaint: Fall Referrals: Latia Chapa, HIMANSHU [Primary Care Provider] - What to do if you have Problems For any increased pain, shortness of breath, bleeding, nausea or vomiting, chest pain, or any unexpected problems, contact your Primary Care Provider. Call [facility] ([phone]) or report to the closest Emergency Room. Call 911 if necessary. 05/25/18 0019 <Electronically signed by Belgica Mtz MD> Date Belgica Mtz MD Cosigner Signature (If Indicated): Date CC: HIMANSHU Chapa DISCHARGE INSTRUCTION Observed: 05/24/2018 Status: F Source: IN[place] 8:00 PM [facility] REPOSITORY [facility] Medical Records Department [address] [place] [address] Discharge Instruction 05/24/181957 MR#: [id number] Acct: [id number] Name: NO NOBLE Rep #: [id number] : 1940 78 From: Belgica Mtz MD PCP: HIMANSHU Gill Status: REG ER ED Disposition - Plan for ED Patient: Disposition: Home or Assisted Living Chief Complaint: Fall Instructions: ED Mechanical Fall, ED Contusion Upper Ext Prescriptions: Oxycodone [Oxyir] 5 mg PO Q6H PRN PRN 3 Days #14 tablet PRN Reason: Pain Referrals: Latia Chapa NP-C [Primary Care Provider] - What to do if you have Problems For any increased pain, shortness of breath, bleeding, nausea or vomiting, chest pain, or any unexpected problems, contact your Primary Care Provider. Call [facility] ([phone]) or report to the closest Emergency Room. Call 911 if necessary. 05/24/181999 <Electronically signed by Belgica Mtz MD> Date Belgica Mtz MD Cosigner Signature (If Indicated): Date CC: HIMANSHU Chapa URINALYSIS, COMPLETE Collected: 05/24/2018 Status: F Source: INGE 6:11 PM [facility] REPOSITORY Order Comment: Order Date: 05/24/18 How was Urine Obtained? CATHETER SPECIMEN TYPE CODE TESTS RESULT OUT OF RANGE REFERENCE UNITS LAB L400.3000 Yellow COLOR Normal Yellow LAB L400.3050 Clear Normal CLARITY Clear LAB L400.3200 Normal mg/dl Normal GLUCOSE, UR Normal LAB L400.3300 Negative mg/dL Normal BILIRUBIN URINE Negative LAB L400.3400 Negative mg/dl Normal KETONE UR Negative LAB L400.3465 1.002-1.030 Normal SP.GR. DIPSTX 1.010 LAB L400.3550 5.0 - 8.0 pH UR Normal 7.0 LAB L400.3600 Negative mg/dl PROT Normal DIPSTX Negative LAB L400.3700 Normal mg/dl Normal UROBILI Normal LAB L400.3750 Negative Normal NITRITE UR Negative LAB L400.3780 Negative /ul Normal OCCULT BLOOD-UR Negative LAB L400.3800 Negative /ul High LEUK 25 ESTERASE LAB L400.4050 0-5 /hpf WBC 0 Normal SEEN LAB L400.4100 0-5 /hpf 0 Normal RBC-UA SEEN LAB L400.4150 5-10 /hpf SQUAM Normal EPI 0-5 SEEN LAB L400.4300 None Seen /hpf 0 Normal BACTERIA SEEN LAB L400.4350 <or=2+ /hpf 0 Normal MUCUS, URINE SEEN Performed By: #### L400.0001 #### [facility] [address] [place], [address] CBC W/DIFF, AUTOMATED Collected: 05/24/2018 Status: F Source: [place] 5:58 PM [facility] REPOSITORY TYPE CODE TESTS RESULT OUT OF RANGE REFERENCE UNITS LAB L100.1000 4.4-11.0 K/mm3 High WBC 12.1 LAB L100.1200 4.2-5.4 M/mm3 Low RBC 3.64 LAB L100.1300 12.0-15.0 g/dl Low HGB 10.7 LAB L100.1400 37-47 % Low HCT 34.2 LAB L100.1500 81-99 fL Normal MCV 94.0 LAB L100.1600 27.0-32.0 pg Normal MCH 29.4 LAB L100.1700 32-36 g/gl Low MCHC 31.3 LAB L100.1810 11.6-14.6 % High RDW CV 14.9 LAB L100.1820 35.1-43.9 fl High RDW SD 51.0 LAB L100.1900 150-450 K/mm3 Normal PLT 275 LAB L100.2000 6.2-12.0 fl Normal MPV 9.8 LAB L100.2100 47-70 % Normal NEUT% 67.9 LAB L100.2200 19-41 % Normal LY% 21.3 LAB L100.2300 0-10 % Normal MONO% 6.8 LAB L100.2400 0-5 % Normal EO% 3.6 LAB L100.2500 0-1 % Normal BASO% 0.2 LAB L100.2550 0.0-0.9 % Normal IM GRAN % 0.200 Result Comment: IG% - Immature Granulocytes (promyelocytes, myelocytes and metamyelocytes) > 1% indicates that a LEFT SHIFT is Present. LAB L100.2620 2.0-7.7 X10 3/uL High Absolute Neut 8.3 LAB L100.2720 0.83-4.51 X10 3/ul Normal Absolute Lymph 2.58 Performed By: #### L100.0100 #### [facility] [address] [place], [place], [address] BASIC METABOLIC Collected: 05/24/2018 Status: F Source: [place] PROFILE (BMP) 5:58 PM [facility] REPOSITORY TYPE CODE TESTS RESULT OUT OF RANGE REFERENCE UNITS LAB L501.0100 74-106 mg/dL High GLU 203 Result Comment: Glucose result greater than or equal to 200 mg/dL suggests DIABETES MELLITUS per A.D.A. criteria. Please note revised GLUCOSE reference range effective 2017. LAB L501.1000 7-18 mg/dL High BUN 28 LAB L501.1100 0.55-1.02 mg/dL High CREAT,SERUM 1.28 Result Comment: The validity of the calculated GFR AND GFRAA in patients over 70 years has not been determined. Clinical correlation is essential. LAB L501.1110 >60 mL/min Low EST GFR 43 Result Comment: Non- GFR Calc LAB L501.1115 >60 mL/min Low EST GFR - AA 52 Result Comment: GFR Calc LAB L501.1255 ml/min Normal Estimated CRCL 31.78 LAB L501.1300 10-20 RATIO High BUN/CRE 21.9 LAB L501.2200 8.5-10 mg/dL Normal .1 CA 8.9 LAB L501.5300 136-14 mmol/L Normal 5 NA 139 LAB L501.5600 3.5-5. mmol/L High 1 K 5.3 LAB L501.5900 98-107 mmol/L Normal CL 106 LAB L501.6100 21.0-3 mmol/L Normal 2.0 CO2 25.0 LAB L501.6200 5-15 Normal GAP 8 Performed By: #### L500.2500 #### [facility] [address] [facility] [place], [address] BRAIN/HEAD WITHOUT Observed: 05/24/2018 Status: F Source: INGE CONTRAST 3:21 PM [facility] REPOSITORY [facility] Imaging Services [address] [place] [address] Brain/Head without Contrast MR#: [id number] Acct: [id number] Name: NO NOBLE Rep #: [id number] : 1940 F 78 From: Jens Thurman MD PCP: HIMANSHU Gill Status: REG ER Study: Brain/Head without Contrast Date of Exam: 05/24/18 Exam# [id number] Ordering Dr: Belgica Mtz MD STUDY: CT BRAIN WITHOUT CONTRAST REASON FOR EXAM: Female, 78 years old. History of fall. RADIATION DOSAGE (If Supplied By Facility): CTDIvol = ( 44.99 ) mGy, DLP = ( 745.49 ) mGycm TECHNIQUE: Transaxial CT imaging of the brain was performed without administration of intravenous contrast material. Individualized dose optimization techniques were used for this CT. COMPARISON: Comparison is made with prior study dated March 17, 2018. FINDINGS: Normal soft tissue structures. There is hyperostosis frontalis internus. There is mild cerebral atrophy with widening of the extra- axial spaces and ventricular dilatation. Normal white matter tracts of the cerebral hemispheres. Normal basal ganglia and thalami. Normal brainstem. Normal cerebellum. There is no intracranial hemorrhage. There are no findings of an acute ischemic infarction. Normal visualized paranasal sinuses. CT/Brain/Head without Contrast IMPRESSION: Chronic involutional changes of the brain. Electronically Signed: Jens Thurman MD at 16:01 EDT Tel [phone], Service support , CC: HIMANSHU Chapa; Belgica Mtz MD Dry Boss: Signed SPINE CERVICAL Observed: 05/24/2018 Status: F Source: [place] WITHOUT CONTRAS 3:21 PM [facility] REPOSITORY [facility] Imaging Services [address] [place] [address] Spine Cervical without Contras MR#: [id number] Acct: [id number] Name: NO NOBLE Rep #: [id number] : 1940 F 78 From: Jens Thurman MD PCP: Latia Chapa, PNP-C Status: REG ER Study: Spine Cervical without Contras Date of Exam: 05/24/18 Exam# [id number] Ordering Dr: Belgica Mtz MD STUDY: CT CERVICAL SPINE WITHOUT CONTRAST REASON FOR EXAM: Female, 78 years old. Back pain following a fall. RADIATION DOSAGE (If Supplied By Facility): CTDIvol = ( 17.85 ) mGy, DLP = ( 369.16 ) mGycm TECHNIQUE: High resolution transaxial imaging was performed without contrast material. Sagittal and coronal images were reconstructed. Individualized dose optimization techniques were used for this CT. COMPARISON: Comparison is made with prior study dated March 19, 2018. FINDINGS: Normal craniovertebral junction. There are degenerative changes of the anterior atlantoaxial articulation. Normal odontoid process. Normal cervical lordosis. Normal vertebral bodies and posterior osseous elements. C2-3: Normal endplates. Normal disc height and morphology. Normal central canal and intervertebral neuroforamina. C3-4: Normal endplates. Normal disc height and morphology. Normal central canal and intervertebral neuroforamina. C4-5: Since prior study, the patient underwent anterior fusion at the C4-C5 level with the prosthetic disc placement. No significant stenosis seen at this time. C5-6: Moderate degree of disc space narrowing. Uncovertebral arthrosis and posterior spondylosis. There is mild degree of central spinal stenosis as well as a moderate degree of bilateral neural foraminal stenosis. C6-7: Moderate degree of disc space narrowing. Spondylosis. Bilateral neural foraminal stenosis slightly worse on the right side. Carotid calcifications. Diffusely enlarged thyroid gland suggestive of a thyroid goiter. This is unchanged. CT/Spine Cervical without Contras IMPRESSION: Multilevel degenerative changes, as described above. Status post anterior fusion at the C4-C5 level. Electronically Signed: Jens Thurman MD at 16:04 EDT Tel [phone], Service support , CC: HIMANSHU Chapa; Belgica Mtz MD Dry Boss: Signed KNEE 4 OR MORE Observed: 05/24/2018 Status: F Source: [place] VIEWS 3:21 PM [facility] REPOSITORY [facility] Imaging Services [address] [place] [address] Knee 4 or More Views MR#: [id number] Acct: [id number] Name: NO NOBLE Rep #: [id number] : 1940 F 78 From: Yasir Dawson MD PCP: HIMANSHU Gill Status: REG ER Study: Knee 4 or More Views Date of Exam: 05/24/18 Exam# [id number] Ordering Dr: Belgica Mtz MD STUDY: X-RAY - RIGHT KNEE REASON FOR EXAM: Female, 78 years old. Fall, right knee pain TECHNIQUE: 3 view(s) of the knee. COMPARISON: None. FINDINGS: Normal visualized distal femur. Normal visualized proximal tibia and fibula. Normal proximal tibiofibular articulation. There is mild degenerative arthrosis of the medial femorotibial compartment. Normal lateral femorotibial compartment. There is mild degenerative arthrosis of the patellofemoral articulation. There vascular francesca along the medial aspect of the knee. The soft tissue structures are unremarkable. RAD/Knee 4 or More Views IMPRESSION: Degenerative arthrosis. Electronically Signed: Yasir Dawson MD at 16:42 EDT , Service support , CC: HIMANSHU Chapa; Belgica Mtz MD Dry Boss: Signed HUMERUS MIN 2 VIEWS Observed: 05/24/2018 Status: F Source: INGE 3:21 PM [facility] REPOSITORY [facility] Imaging Services [address] [place] [address] Humerus min 2 Views MR#: [id number] Acct: [id number] Name: NO NOBLE Rep #: [id number] : 1940 F 78 From: Yasir Dawson MD PCP: HIMANSHU Gill Status: REG ER Study: Humerus min 2 Views Date of Exam: 05/24/18 Exam# [id number] Ordering Dr: Belgica Mtz MD STUDY: X-RAY - RIGHT HUMERUS REASON FOR EXAM: Female, 78 years old. FALL RIGHT ARM PAIN TECHNIQUE: 2 view(s) of the humerus. COMPARISON: None. FINDINGS: Normal visualized humerus. There is no demonstrated fracture or osseous destructive process. There is no demonstrated soft tissue abnormality. RAD/Humerus min 2 Views IMPRESSION: Normal x-ray examination of the humerus. Electronically Signed: Yasir Dawson MD at 16:42 EDT , Service support , CC: HIMANSHU Chapa; Belgica Mtz MD Dry Boss: Signed CHEST PA AND LATERAL Observed: 05/24/2018 Status: F Source: INGE 3:21 PM [facility] REPOSITORY [facility] Imaging Services [address] [place] [address] Chest PA and Lateral MR#: [id number] Acct: [id number] Name: NO NOBLE Rep #: [id number] : 1940 F 78 From: Yasir Dawson MD PCP: HIMANSHU Gill Status: REG ER Study: Chest PA and Lateral Date of Exam: 05/24/18 Exam# [id number] Ordering Dr: Belgica Mtz MD STUDY: X-RAY CHEST REASON FOR EXAM: Female, 78 years old. FALL PAIN TECHNIQUE: Frontal and lateral views of the chest. COMPARISON: 04.13.18 FINDINGS: Chronic appearing increased interstitial lung markings. There are multiple median sternotomy wires. There is no demonstrated pleural abnormality. Normal heart size. Normal mediastinum and holli. Normal visualized pulmonary arteries. There is atherosclerotic calcification of the aortic arch with tortuosity. There are diffuse degenerative changes of the visualized thoracic spine. There is degenerative osteoarthritis of the bilateral shoulders. There is no demonstrated abnormality of the visualized soft tissue structures of the upper abdomen. RAD/Chest PA and Lateral IMPRESSION: There are no acute findings. Electronically Signed: Yasir Dawson MD at 16:44 EDT , Service support , CC: HIMANSHU Chapa; Belgica Mtz MD Dry Boss: Signed FOREARM 2 VIEWS Observed: 05/24/2018 Status: F Source: [place] 3:21 PM [facility] REPOSITORY [facility] Imaging Services [facility] [place] [place] [address] Forearm 2 Views MR#: [id number] Acct: [id number] Name: NO NOBLE Rep #: [id number] : 1940 F 78 From: Yasir Dawson MD PCP: HIMANSHU Gill Status: REG ER Study: Forearm 2 Views Date of Exam: 05/24/18 Exam# [id number] Ordering Dr: Belgica Mtz MD STUDY: X-RAY - RIGHT RADIUS AND ULNA REASON FOR EXAM: Female, 78 years old. FALL PAIN ARM PAIN TECHNIQUE: 2 view(s) of the forearm. COMPARISON: None. FINDINGS: There is no demonstrated soft tissue swelling. Normal visualized radius. Normal visualized ulna. RAD/Forearm 2 Views IMPRESSION: Normal x-ray examination of the radius and ulna. Electronically Signed: Yasir Dawson MD at 16:45 EDT , Service support , CC: PNPKristopher Chapa; Belgica Mtz MD Dry Boss: Signed 12 LEAD ELECTROCARDIOGRAM Observed: 04/25/2018 Status: F Source: [place] 3:25 PM [facility] REPOSITORY [facility] Cardiovascular Services [address] [place] [address] 12 Lead EKG 04/14/18 0724 MR#: [id number] Acct: [id number] Name: NO NOBLE Rep #: [id number] : 1940 78 From: Shan Henry MD Attending Dr: Anant Rodriguez Status: DIS DEISY Ordering Dr: Blas Angeles MD Date: 04/14/18 Location: [facility] Sex: F C Admitted: 04/13/18 Test Reason : RYTHUM CHG Blood Pressure : / mmHG Vent. Rate : 070 BPM Atrial Rate : 070 BPM P-R Int : 196 ms QRS Dur : 144 ms QT Int : 480 ms P-R-T Axes : 079 -34 -66 degrees QTc Int : 518 ms Normal sinus rhythm Left axis deviation Left bundle branch block Abnormal ECG Confirmed by CARL EL, SHAN ([id number]), editor farm journal DAMIAN MCCRACKEN ([id number]) on 04/25/2018 3:25:29 PM Referred By: KARTHIK Confirmed By:SHAN HENRY MD 04/25/18 1525 Date Shan Henry MD CC: PNP-Loli Chapa; Anant Rodriguez; Blas Angeles M.D. Signed DISCHARGE SUMMARY Observed: 04/19/2018 Status: F Source: [place] 2:26 PM [facility] REPOSITORY [facility] Medical Records Department [address] [place] [address] Discharge Summary 04/19/18 1359 MR#: [id number] Acct: [id number] Name: NO NOBLE Rep #: [id number] : 1940 78 From: Anant Rodriguez MD PCP: HIMANSHU Gill Status: ADM DEISY Y Location: WA3 [id number] Discharge Date and Diagnosis Date of Admission: 04/13/18 Date of Discharge: 04/19/18 - Primary Discharge Diagnosis #1 acute multiple small bilateral peripheral pulmonary emboli. #2 cervical radiculopathy. #3 debility/functional decline. - Secondary Discharge Diagnosis Chronic Problems (Last Updated 04/13/18 @ 19:54 by Blas Angeles MD) Type 2 diabetes mellitus (Chronic) HTN (hypertension) (Chronic) CAD (coronary artery disease) (Chronic) Hx of CABG (Chronic) Carpal tunnel syndrome on right (Chronic) Cervical radicular pain (Chronic) Hospital Course and Treatment Imaging Results: Clinical Impression(s) from Imaging Studies Chest X-Ray 04/13/18 12:55 IMPRESSION: No acute abnormality is seen. Electronically Signed: Jens Thurman MD at 13:13 EDT Tel [phone], Service support , Chest CTA 04/13/18 13:51 IMPRESSION: Several small peripheral intraluminal filling defects involving pulmonary branches as described. Possible solid left renal mass. 7.8 mm x 4.9 mm noncalcified nodule in the right upper lobe adjacent to the right minor fissure. Enlarged right lobe of the thyroid. Electronically Signed: Jens Thurman MD at 14:29 EDT Tel [phone], Service support , Cervical Spine MRI 04/13/18 16:29 IMPRESSION: 1. Significant artifact is present at C4, C5 and C6 regions related to recent surgery. 2. Apparent abnormal signal within the cervical spinal cord at C4 and C5 possibly related to cord impingement and/or myelomalacia. Artifactual signal within the cord cannot be excluded. Electronically Signed: Adia Mccracken MD at 3:42 EDT , Service support , Operations: None Procedures: None Summary of Care Provided: Patient seen and examined on the day of discharge and appeared to be stable to be discharged to residential facility. She continued to complain of neck pain and right upper extremity pain and tingling and this is chronic, no change. Her vital signs are stable. - Physical Exam General: Alert, Oriented x3, Cooperative, No apparent distress. HEENT: Atraumatic, PERRLA, EOMI. Neck: Supple, No JVD, Negative Carotid Bruits, Trachea Midline, Thyroid Normal. Lungs: Clear to auscultation, Normal air movement, No rhonchi, No wheeze, No rales. Cardiovascular: Regular rate, Regular Rhythm, Normal S1, Normal S2, PMI Normal. Abdomen: Bowel Sounds Present, Soft, Non Tender, Non-Distended, No Hepato-splenomegaly. Extremities: No clubbing, No cyanosis, No edema Skin: No rashes, No breakdown Neurological: Neuro grossly intact Vital Signs are stable. Hospital course: The patient is a 78 year old F admitted because of worsening right upper extremity/right shoulder pain. Patient underwent neck surgery recently with anterior decompression and fusion for severe cervical radiculopathy pain and spinal stenosis. MRI cervical spine performed and revealed significant artifact is present at C4, C5 and C6 related to recent surgery and also reviewed abnormal signal within the cervical spine cord at C4-C5 which could be due to cord impingement or myelomalacia. Patient was found to have elevated d-dimer for which CTA chest performed and revealed multiple acute small peripheral pulmonary emboli. Patient was treated with Xarelto for acute pulmonary emboli. She was treated with OxyIR for pain. Her routine blood work was unremarkable and at his baseline. With pain medication, her neck pain, right shoulder and right extremity pain slightly improved but patient continued to complain of that pain. Her vital signs remained stable and respiratory status remains stable as well. PT OT evaluate the patient and recommended placement to residential facility. Patient discharged to residential facility in a stable medical condition, discharged on Xarelto for acute small peripheral bilateral PEs, discharged on OxyIR as needed for pain as well as Neurontin and Flexeril, recommended follow-up with her neurosurgeon as outpatient and follow-up with PCP in 1-2 weeks. Home Medications: Medications to take at Discharge Aspirin E.C. [Ecotrin] 81 mg PO DAILY 03/17/18 Atorvastatin Calcium 40 mg PO QHS 03/17/18 Ergocalciferol [Vitamin D] 50,000 unit PO GARDUNO 03/17/18 Ferrous Sulfate [Iron] 325 mg PO DAILY 03/17/18 Levothyroxine Sodium [Synthroid] 112 mcg PO DAILY 03/17/18 Losartan Potassium [Cozaar] 50 mg PO DAILY 03/17/18 Bisacodyl [Dulcolax] 10 mg RECTAL DAILY PRN PRN 04/13/18 Cyclobenzaprine [Flexeril] 10 mg PO Q6H PRN PRN 04/13/18 Cyclobenzaprine [Flexeril] 10 mg PO QHS 04/13/18 Dextrose [Glucose Gel] 1 packet PO X1 PRN 04/13/18 Gabapentin [Neurontin] 200 mg PO BID 04/13/18 Glucagon 1 mg IM X1 PRN 04/13/18 Hydrochlorothiazide [Hctz] 12.5 mg PO DAILY 04/13/18 Insulin Glargine,Hum.rec.anlog [Basaglar Kwikpen U-100] 30 unit SQ QHS 04/13/18 Lactobacillus Rhamnosus GG [Culturelle] 1 each PO DAILY 04/13/18 Mag Hydrox/Al Hydrox/Simeth [Antacid Suspension] 30 ml PO Q4H PRN 04/13/18 Magnesium Hydroxide [Milk Of Magnesia] 30 ml PO DAILY PRN PRN 04/13/18 Meclizine HCl [Antivert] 25 mg PO Q8H PRN PRN 04/13/18 Metoprolol Tartrate [Lopressor (beta aleida)] 25 mg PO BID 04/13/18 Na Phos,M-B/Na Phos,Di-Ba [Fleet Enema] 120 ml RECTAL X1 PRN 04/13/18 Ondansetron HCl [Zofran] 4 mg PO Q6H PRN PRN 04/13/18 Oxycodone [Oxyir] 5 mg PO Q4H PRN PRN #20 tab 04/19/18 Rivaroxaban [Xarelto] 15 mg PO BIDCM #30 tab 04/19/18 Rivaroxaban [Xarelto] 20 mg PO DAILY #60 tab 04/19/18 Following Prescrptions Were Given to Patient: Oxycodone [Oxyir] 5 mg PO Q4H PRN PRN #20 tab PRN Reason: Pain Rivaroxaban [Xarelto] 20 mg PO DAILY #60 tab Rivaroxaban [Xarelto] 15 mg PO BIDCM #30 tab Primary Care Physician: Latia Chapa, HIMANSHU [Primary Care Provider] - Please follow up with your Primary Care Physician in: 1-2 weeks. Disposition: [facility] facility Minutes spent on discharge:: 32 Patient Condition:: Stable Medical Necessity - Tobacco Use Smoking Status: Never smoker Meaningful Use Info Meaningful Use Diagnoses (Choose all that apply): None applicable Code Visit Inpatient E AND M: 69227 Disch Hosp 04/19/18 1426 <Electronically signed by Anant Rodriguez MD> Date Anant Rodriguez MD Cosigner Signature (if applicable): Date CC: PNP-C Latia Chapa; Anant Rodriguez Signed BEDSIDE GLUCOSE Collected: 04/19/2018 Status: F Source: INGE 12:01 PM [facility] REPOSITORY TYPE CODE TESTS RESULT OUT OF REFERENCE UNITS RANGE LAB L501.080 70-110 mg/dL High BEDSIDE GLU 213 Result Comment: MANAGEMENT OF PATIENT CARE PER NURSING PROTOCOL Performed By: #### L501.080 #### [facility] Point of Care [address] [place] [address] TRANSFER TO EXTENDED Observed: 04/19/2018 Status: F Source: [place] CARE 9:43 AM [facility] REPOSITORY [facility] Medical Records Department [address] [place] [address] Transfer to Extended Care MR#: [id number] Acct: [id number] Name: NO NOBLE Rep #: [id number] : 1940 78 From: Anant Rodriguez MD PCP: SKYLER GillC Status: ADM DEISY NO NOBLE (Patient) (Health Ins. Claim No.) (Day of Discharge to Facility) Certification of patient admission REQUIRED AT TIME OF ADMISSION. I CERTIFY THAT POST-HOSPITAL ECF SERVICES ARE REQUIRED TO BE GIVEN ON AN IN-PATIENT BASIS BECAUSE OF THE ABOVE NAMED PATIENT'S NEED FOR LONG-TERM CARE ON A CONTINUING BASIS FOR THE CONDITION(S) FOR WHICH HE/SHE WAS RECEIVING IN-PATIENT HOSPITAL SERVICES PRIOR TO HIS/HER TRANSFER TO THE F. 04/19/18 0943 <Electronically signed by Anant Rodriguez MD> Date Anant Rodriguez MD - Diet 04/15/18 19:06 ADA [Diet: Calorie Controlled] Is pt able to select menu?: No How many daily calories?: 1800 calorie - Wound(s) right buttocks Wound Type: Pressure Injury neck-midline Wound Type: Surgical Incision RT HEEL Wound Type: Pressure Injury - Suggestions for Active Care Change Position every (hours): 3 Hours to sit in a chair: 2 Times a day to sit in chair: 3 - Allergies/Procedures Done in Hospital Allergies/Adverse Reactions: Allergies orange juice Allergy (Verified 04/13/18 12:50) Hives Penicillins Allergy (Verified 04/13/18 12:50) Anaphylaxis strawberry Allergy (Verified 04/13/18 12:50) Hives acetaminophen Adverse Reaction (Verified 04/13/18 15:50) Vomiting - Type of Care/Length of Stay Estimated LOS: Convalescent Care Less Than 30 days Type of Care Needed: Skilled Rehab Potential: Fair Prognosis: Fair - Additional Orders/Day of Discharge Additional Orders: patient received 1 week of Xarelto 15 mg p.o. twice daily. She will continue Xarelto 15 mg p.o. twice daily for 2 more weeks and then she will start Xarelto 20 mg p.o. daily to complete at least 3 months of treatment. Duration of treatment should be decided by PCP. H AND P will serve as current which was dated: 04/13/18 Day of Discharge: 04/19/18 - Dietary and Speech Recommendations Dietitian Recommendations/Changes: Recommend change to cardiac, calorie-controlled 1600 diet. - Follow Up Care Primary Care Physician: Latia Chapa, PNP-C [Primary Care Provider] - Please follow up with your Primary Care Physician in: 1-2 weeks. 04/19/18 0943 <Electronically signed by Anant Rodriguez MD> Date Anant Rodriguez MD CC: PNP-C Latia Chapa Signed BEDSIDE GLUCOSE Collected: 04/19/2018 Status: F Source: INEG 6:09 AM [facility] REPOSITORY TYPE CODE TESTS RESULT OUT OF REFERENCE UNITS RANGE LAB L501.080 70-110 mg/dL High BEDSIDE GLU 163 Result Comment: MANAGEMENT OF PATIENT CARE PER NURSING PROTOCOL Performed By: #### L501.080 #### [facility] Point of [place] [place] [address] BEDSIDE GLUCOSE Collected: 04/18/2018 Status: F Source: INGE 10:08 PM [facility] REPOSITORY TYPE CODE TESTS RESULT OUT OF RANGE REFERENCE UNITS LAB L501.080 70-110 mg/dL Normal BEDSIDE GLU 98 Result Comment: MANAGEMENT OF PATIENT CARE PER NURSING PROTOCOL Performed By: #### L501.080 #### [facility] Point of Care [address] [place] [address] BEDSIDE GLUCOSE Collected: 04/18/2018 Status: F Source: [place] 5:03 PM [facility] REPOSITORY TYPE CODE TESTS RESULT OUT OF REFERENCE UNITS RANGE LAB L501.080 70-110 mg/dL High BEDSIDE GLU 194 Result Comment: MANAGEMENT OF PATIENT CARE PER NURSING PROTOCOL Performed By: #### L501.080 #### [facility] Point of Care [address] [place] [address] BEDSIDE GLUCOSE Collected: 04/18/2018 Status: F Source: [place] 2:28 PM [facility] REPOSITORY TYPE CODE TESTS RESULT OUT OF REFERENCE UNITS RANGE LAB L501.080 70-110 mg/dL High BEDSIDE GLU 211 Result Comment: MANAGEMENT OF PATIENT CARE PER NURSING PROTOCOL Performed By: #### L501.080 #### [facility] Point of Care [address] [place] [address] 12 LEAD ELECTROCARDIOGRAM Observed: 04/18/2018 Status: F Source: CORNING 1:42 PM [facility] REPOSITORY [facility] Cardiovascular Services [address] [place] [address] 12 Lead EKG 04/13/18 1321 MR#: [id number] Acct: [id number] Name: NO NOBLE Rep #: [id number] : 1940 78 From: Jassi Sandoval MD Attending Dr: Anant Rodriguez Status: ADM DEISY Ordering Dr: Elin Barboza DO Date: 04/13/18 Location: MS3 Sex: F C Admitted: 04/13/18 Test Reason : UPPER EXTREMITY Blood Pressure : / mmHG Vent. Rate : 071 BPM Atrial Rate : 071 BPM P-R Int : 210 ms QRS Dur : 152 ms QT Int : 474 ms P-R-T Axes : 068 -37 134 degrees QTc Int : 515 ms Sinus rhythm with 1st degree A-V block Left axis deviation Left bundle branch block Abnormal ECG Confirmed by JAIME EL, JASSI ([id number]), editor farm journal DAMIAN MCCRACKEN ([id number]) on 04/18/2018 1:41:44 PM Referred By: LIAM Confirmed By:JASSI SANDOVAL MD 04/18/18 1341 Date Jassi Sandoval MD CC: PNP-C Latia Chapa; Anant Rodriguez; Elin Barboza DO Signed BEDSIDE GLUCOSE Collected: 04/18/2018 Status: F Source: INGE 11:59 AM [facility] REPOSITORY TYPE CODE TESTS RESULT OUT OF RANGE REFERENCE UNITS LAB L501.080 70-110 mg/dL Normal BEDSIDE GLU 71 Result Comment: MANAGEMENT OF PATIENT CARE PER NURSING PROTOCOL Performed By: #### L501.080 #### [facility] Point of Care [address] [place] [address] BEDSIDE GLUCOSE Collected: 04/18/2018 Status: F Source: INGE 6:52 AM [facility] REPOSITORY TYPE CODE TESTS RESULT OUT OF RANGE REFERENCE UNITS LAB L501.080 70-110 mg/dL Normal BEDSIDE GLU 100 Result Comment: MANAGEMENT OF PATIENT CARE PER NURSING PROTOCOL Performed By: #### L501.080 #### [facility] Point of Care [address] [place] [address] BEDSIDE GLUCOSE Collected: 04/17/2018 Status: F Source: INGE 10:44 PM [facility] REPOSITORY TYPE CODE TESTS RESULT OUT OF REFERENCE UNITS RANGE LAB L501.080 70-110 mg/dL High BEDSIDE GLU 148 Result Comment: MANAGEMENT OF PATIENT CARE PER NURSING PROTOCOL Performed By: #### L501.080 #### [facility] Point of Care [address] [place] [address] BEDSIDE GLUCOSE Collected: 04/17/2018 Status: F Source: INGE 4:20 PM [facility] REPOSITORY TYPE CODE TESTS RESULT OUT OF REFERENCE UNITS RANGE LAB L501.080 70-110 mg/dL High BEDSIDE GLU 146 Result Comment: MANAGEMENT OF PATIENT CARE PER NURSING PROTOCOL Performed By: #### L501.080 #### [facility] Point of Care [address] [place] [address] BEDSIDE GLUCOSE Collected: 04/17/2018 Status: F Source: INGE 11:16 AM [facility] REPOSITORY TYPE CODE TESTS RESULT OUT OF REFERENCE UNITS RANGE LAB L501.080 70-110 mg/dL High BEDSIDE GLU 212 Result Comment: MANAGEMENT OF PATIENT CARE PER NURSING PROTOCOL Performed By: #### L501.080 #### [facility] Point of Care [address] [place] [address] BEDSIDE GLUCOSE Collected: 04/17/2018 Status: F Source: INGE 7:40 AM [facility] REPOSITORY TYPE CODE TESTS RESULT OUT OF RANGE REFERENCE UNITS LAB L501.080 70-110 mg/dL Normal BEDSIDE GLU 101 Result Comment: MANAGEMENT OF PATIENT CARE PER NURSING PROTOCOL Performed By: #### L501.080 #### [facility] Point of Care [address] [place] [address] BEDSIDE GLUCOSE Collected: 04/17/2018 Status: F Source: INGE 3:55 AM [facility] REPOSITORY TYPE CODE TESTS RESULT OUT OF RANGE REFERENCE UNITS LAB L501.080 70-110 mg/dL Normal BEDSIDE GLU 100 Result Comment: MANAGEMENT OF PATIENT CARE PER NURSING PROTOCOL Performed By: #### L501.080 #### [facility] Point of Care [address] [place] [address] BEDSIDE GLUCOSE Collected: 04/16/2018 Status: F Source: INGE 9:06 PM [facility] REPOSITORY TYPE CODE TESTS RESULT OUT OF REFERENCE UNITS RANGE LAB L501.080 70-110 mg/dL High BEDSIDE GLU 154 Result Comment: MANAGEMENT OF PATIENT CARE PER NURSING PROTOCOL Performed By: #### L501.080 #### [facility] Point of Care [address] [place] [address] BEDSIDE GLUCOSE Collected: 04/16/2018 Status: F Source: INGE 4:50 PM [facility] REPOSITORY TYPE CODE TESTS RESULT OUT OF RANGE REFERENCE UNITS LAB L501.080 70-110 mg/dL Normal BEDSIDE GLU 99 Result Comment: MANAGEMENT OF PATIENT CARE PER NURSING PROTOCOL Performed By: #### L501.080 #### [facility] Point of Care [address] [place] [address] BEDSIDE GLUCOSE Collected: 04/16/2018 Status: F Source: INGE 11:33 AM [facility] REPOSITORY TYPE CODE TESTS RESULT OUT OF REFERENCE UNITS RANGE LAB L501.080 70-110 mg/dL High BEDSIDE GLU 169 Result Comment: MANAGEMENT OF PATIENT CARE PER NURSING PROTOCOL Performed By: #### L501.080 #### [facility] Point of Care [address] [place] [address] BEDSIDE GLUCOSE Collected: 04/16/2018 Status: F Source: INGE 8:12 AM [facility] REPOSITORY TYPE CODE TESTS RESULT OUT OF REFERENCE UNITS RANGE LAB L501.080 70-110 mg/dL High BEDSIDE GLU 129 Result Comment: MANAGEMENT OF PATIENT CARE PER NURSING PROTOCOL Performed By: #### L501.080 #### [facility] Point of Care [address] [place] [address] BEDSIDE GLUCOSE Collected: 04/15/2018 Status: F Source: INGE 10:06 PM [facility] REPOSITORY TYPE CODE TESTS RESULT OUT OF REFERENCE UNITS RANGE LAB L501.080 70-110 mg/dL High BEDSIDE GLU 297 Result Comment: MANAGEMENT OF PATIENT CARE PER NURSING PROTOCOL Performed By: #### L501.080 #### [facility] Point of Care [address] [place] [address] BEDSIDE GLUCOSE Collected: 04/15/2018 Status: F Source: INGE 5:08 PM [facility] REPOSITORY TYPE CODE TESTS RESULT OUT OF REFERENCE UNITS RANGE LAB L501.080 70-110 mg/dL High BEDSIDE GLU 287 Result Comment: MANAGEMENT OF PATIENT CARE PER NURSING PROTOCOL Performed By: #### L501.080 #### [facility] Point of Care [address] [place] [address] BEDSIDE GLUCOSE Collected: 04/15/2018 Status: F Source: INGE 12:04 PM [facility] REPOSITORY TYPE CODE TESTS RESULT OUT OF REFERENCE UNITS RANGE LAB L501.080 70-110 mg/dL High BEDSIDE GLU 386 Result Comment: MANAGEMENT OF PATIENT CARE PER NURSING PROTOCOL Performed By: #### L501.080 #### [facility] Point of Care [address] [place] [address] BEDSIDE GLUCOSE Collected: 04/15/2018 Status: F Source: INGE 7:50 AM [facility] REPOSITORY TYPE CODE TESTS RESULT OUT OF REFERENCE UNITS RANGE LAB L501.080 70-110 mg/dL High BEDSIDE GLU 346 Result Comment: MANAGEMENT OF PATIENT CARE PER NURSING PROTOCOL Performed By: #### L501.080 #### [facility] Point of Care [address] [place] [address] BEDSIDE GLUCOSE Collected: 04/14/2018 Status: F Source: INGE 9:01 PM [facility] REPOSITORY TYPE CODE TESTS RESULT OUT OF REFERENCE UNITS RANGE LAB L501.080 70-110 mg/dL High BEDSIDE GLU 415 Result Comment: MANAGEMENT OF PATIENT CARE PER NURSING PROTOCOL Performed By: #### L501.080 #### [facility] Point of Care [address] [place] [address] BEDSIDE GLUCOSE Collected: 04/14/2018 Status: F Source: INGE 5:37 PM [facility] REPOSITORY TYPE CODE TESTS RESULT OUT OF REFERENCE UNITS RANGE LAB L501.080 70-110 mg/dL High BEDSIDE GLU 415 Result Comment: MANAGEMENT OF PATIENT CARE PER NURSING PROTOCOL Performed By: #### L501.080 #### [facility] Point of Care [address] [place] [address] BEDSIDE GLUCOSE Collected: 04/14/2018 Status: F Source: INGE 12:34 PM [facility] REPOSITORY TYPE CODE TESTS RESULT OUT OF REFERENCE UNITS RANGE LAB L501.080 70-110 mg/dL High BEDSIDE GLU 422 Result Comment: MANAGEMENT OF PATIENT CARE PER NURSING PROTOCOL Performed By: #### L501.080 #### [facility] Point of Care [address] [place] [address] BEDSIDE GLUCOSE Collected: 04/14/2018 Status: F Source: INGE 7:37 AM [facility] REPOSITORY TYPE CODE TESTS RESULT OUT OF REFERENCE UNITS RANGE LAB L501.080 70-110 mg/dL High BEDSIDE GLU 375 Result Comment: MANAGEMENT OF PATIENT CARE PER NURSING PROTOCOL Performed By: #### L501.080 #### [facility] Point of Care [address] [place] [address] CRP Collected: 04/14/2018 Status: F Source: CORNING 5:22 AM [facility] REPOSITORY TYPE CODE TESTS RESULT OUT OF RANGE REFERENCE UNITS LAB L501.6710 0.0-3.0 mg/L High 17.10 C-REACTIVE PROT Result Comment: C-Reactive Protein (CRP) provides useful information for the diagnosis, therapy and monitoring of inflammatory processes and associated diseases. For the evaluation of Relative Risk for Cardiovascular Disease, a High Sensitivity CRP (HSCRP) should be ordered. Performed By: #### L501.6710 #### [facility] [address] [place] [address] ERYTHROCYTE SED RATE Collected: 04/14/2018 Status: F Source: CORNING 5:22 AM [facility] REPOSITORY TYPE CODE TESTS RESULT OUT OF RANGE REFERENCE UNITS LAB L102.0000 0-30 mm/hr High SED RATE 55 Performed By: #### L101.9900 #### [facility] [address] [facility] [address] BEDSIDE GLUCOSE Collected: 04/13/2018 Status: F Source: INGE 9:30 PM [facility] REPOSITORY TYPE CODE TESTS RESULT OUT OF REFERENCE UNITS RANGE LAB L501.080 70-110 mg/dL High BEDSIDE GLU 208 Result Comment: MANAGEMENT OF PATIENT CARE PER NURSING PROTOCOL Performed By: #### L501.080 #### [facility] Point of Care [address] [facility] [place] [address] HISTORY AND PHYSICAL Observed: 04/13/2018 Status: F Source: INGE EXAM 9:16 PM [facility] REPOSITORY [facility] Medical Records Department [address] [place] [address] [place] [address] History and Physical 04/13/18 194 MR#: [id number] Acct: [id number] Name: NO NOBLE Rep #: [id number] : 1940 78 From: Blas Angeles MD PCP: HIMANSHU Gill Status: ADM DEISY Y Location: MS3 [id number] ADDENDUM by Blas Angeles M.D. on 04/13/18 at 2116 Code Visit CTA of the chest images reviewed Will start on therapeutic anticoagulation with Lovenox 04/13/182115 <Electronically signed by Blas Angeles MD> Date Blas Angeles MD cc: HIMANSHU Chapa; Blas Angeles M.D. * Signed ADDENDUM by Blas Angeles M.D. on 04/13/18 at 2114 04/13/182113 <Electronically signed by Blas Angeles MD> Date Blas Angeles MD cc: HIMANSHU Chapa; Blas Angeles M.D. * Signed Problem List (1) Cervical radicular pain Status: Acute History of Present Illness Date of Admission: 04/13/18 Chief Complaint: right UE pain 78 year old most pleasant old lady who recently underwent neck surgery - anterior decompression and fusion for severe cervical radiculopathic symptoms and spinal stenosis. Patient states that since surgery she has been experiencing increasing and severe pain in the right upper extremity from the upper arm all the way down to he thumb. Admits to numbness and paraesthesia as well. Does not have any reported fever or chills. Since surgery she has been in a SNF undergoing rehab Past Medical History Past Medical History (Chronic Problems): Chronic Problems HTN (hypertension) (Chronic) CAD (coronary artery disease) (Chronic) Hx of CABG (Chronic) Carpal tunnel syndrome on right (Chronic) Medical History: Medical History (Last Updated 04/13/18 @ 19:54 by Blas Angeles MD) HTN (hypertension) I10 Allergies orange juice Allergy (Verified 04/13/18 12:50) Hives Penicillins Allergy (Verified 04/13/18 12:50) Anaphylaxis strawberry Allergy (Verified 04/13/18 12:50) Hives acetaminophen Adverse Reaction (Verified 04/13/18 15:50) Vomiting Home Medications: Ambulatory Orders Medication Instructions Recorded Ergocalciferol [Vitamin D] 50,000 unit PO GARDUNO 03/17/18 Ferrous Sulfate [Iron] 325 mg PO DAILY 03/17/18 Levothyroxine Sodium [Synthroid] 112 mcg PO DAILY 03/17/18 Surgical History: coronary bypass surgery, - - Right carpal tunnel surgery Psychiatric History: No pertinent psych hx [employer]ANT History: 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 Denies: Chest Pain Respiratory: Denies: Cough, Hemoptysis, Pleuritic Pain, Shortness of Breath Gastrointestinal: Denies: Abdominal Pain, Constipation, Vomiting Genitourinary: Reports: Dysuria Musculoskeletal: Reports: Arm Pain, Hand Pain, Neck Pain Skin: Denies: Dryness Neurological: Reports: Confusion, Focal weakness, Numbness, Tingling. Denies: Balance problems Endocrine: Denies: Change in Body Habitus Hematologic/ Lymphatic: Denies: Easy Bruising VTE Information - Inpt Only VTE Present on Admission: No Patient Problems: Active and Suspected Problems Cervical radicular pain (Acute) - Physical Exam General: Alert, Oriented x3, Cooperative, No apparent distress HEENT: Atraumatic, Normocephalic Oral: Moist Mucosa Neck: - - nack in rigid cervical collar Lungs: Clear to auscultation, Normal air movement, No rhonchi Cardiovascular: Regular rate, Regular Rhythm, Normal S1, Normal S2, No murmurs Abdomen: Bowel Sounds Present, Non Tender, Non-Distended, Obese Extremities: - - right arm and forearm tender on palpation, Skin: No rashes Musculoskeletal: No Muscle Wasting, Arthritic Changes, Tenderness Neurological: Cranial nerves II-XII grossly intact, Deep Tendon Reflexes 2+/4 and Symmetrical - DTR diminished globally, - - power in the RUE 3-4, allodynia and hyperesthesia noted as well. All DTR diminished. Gross sensation diminished as well Psych/Mental Status: Normal Affect, Appropriate, Anxious Vital Signs Temp Pulse Resp BP Pulse Ox 98 F 67 18 157/58 H 100 04/13/18 17:05 04/13/18 17:05 04/13/18 17:05 04/13/18 17:05 04/13/18 17:05 Oxygen Delivery Method Room Air Weight: 90.1 kg Body Mass Index (BMI) 34.0 Intake and Output for Last 24 Hours Intake Total 200 / 200 Balance 200 / 200 Assessment/Plan All Active Problems Cervical radicular pain (Acute) Vertigo, peripheral (Acute) Chest pain, unspecified (Acute) 1. Severe cervical radicular symptoms with pain and dysesthesias and motor weakness involving the right UE. Uncertain if some of this may be expected following her recent surgery. Will repeat cervical MRI to r/o any complication from the surgery. Start on high dose steroids and increase dose of Neurontin for neuropathic pain. Get PT/OT. If imaging concerning then will have to transfer to [facility] where surgery was done. 2. Incidental finding of very small and multiple distal pulmonary emboli bilaterally. These appear to be clinically insignificant and it is doubtful if there will be any benefit in treating these (risk may outweigh benefit in this case) Will check LE US for DVT. Will need to discuss with patient and family regarding risk vs benefit. 3. DM2. Resume home regimen. Expect insulin requirement to increase with systemic steroid administration. Will have to closely monitor. 4. Possible dementia 5. HTN Code Visit Inpatient E AND M: 44821 Init Hosp L3 04/13/182016 <Electronically signed by Blas Angeles MD> Date Blas Angeles MD Cosigner Signature: Date (if applicable) CC: PNP-C Latia Chapa; Blas Angeles M.D. Signed SPINE CERVICAL Observed: 04/13/2018 Status: F Source: CORNING (ROUTINE) 4:31 PM [facility] REPOSITORY [facility] Imaging Services [address] [place] [address] Spine Cervical (Routine) MR#: [id number] Acct: [id number] Name: NO NOBLE Rep #: [id number] : 1940 F 78 From: Adia Mccracken MD PCP: HIMANSHU Gill Status: ADM DEISY Study: Spine Cervical (Routine) Date of Exam: 04/13/18 Exam# [id number] Ordering Dr: Blas Angeles MD STUDY: MRI CERVICAL SPINE WITHOUT CONTRAST REASON FOR EXAM: Female, 78 years old. Postoperative pain. TECHNIQUE: Standardized fat and water weighted pulse sequences were obtained in the sagittal and axial planes. There is severe artifact at the C4, and C5 levels apparently related to orthopedic hardware. COMPARISON: CT of the cervical spine dated March 19, 2018. FINDINGS: Normal foramen magnum and brainstem-cervical cord junction. Normal craniovertebral junction. There are degenerative changes of the anterior atlantoaxial articulation. Normal odontoid process. Normal cervical lordosis. The C4 and C5 vertebral bodies are not visualized secondary to severe artifact. C2-3: Normal endplates. Normal disc height, signal and morphology. Normal central canal and intervertebral neural foramina. C3-4: There is artifact at this level which is the appearance of acquired canal stenosis. C4-5: These images are nondiagnostic. C5-6: These images are nondiagnostic. C6-7: Normal endplates. There is a mild disc bulge and osteophyte complex.. Normal central canal and intervertebral neural foramina. C7-T1: Normal endplates. Normal disc height, signal and morphology. Normal central canal and intervertebral neural foramina. The cervical cord at C4, C5 and C6 appears to have abnormal signal. There is also MR appearance of cord impingement. This appearance may be artifactual however, cervical myelomalacia is also possible. There is no demonstrated cervical cord syrinx cavity. Normal visualized soft tissue structures. MRI/Spine Cervical (Routine) IMPRESSION: 1. Significant artifact is present at C4, C5 and C6 regions related to recent surgery. 2. Apparent abnormal signal within the cervical spinal cord at C4 and C5 possibly related to cord impingement and/or myelomalacia. Artifactual signal within the cord cannot be excluded. Electronically Signed: Adia Mccracken MD at 3:42 EDT , Service support , CC: HIMANSHU Chapa; Blas Angeles M.D. Dry Boss: Signed EMERGENCY DEPARTMENT Observed: 04/13/2018 Status: F Source: CORNING SUMMARY 3:36 PM [facility] REPOSITORY [facility] Medical Records Department [address] [place] [address] Emergency Department Summary 04/13/18 1532 MR#: [id number] Acct: [id number] Name: NO NOBLE Rep #: [id number] : 1940 78 From: Elin Barboza DO PCP: HIMANSHU Gill Status: ADM DEISY - ER Visit Summary Date of Service: 04/13/18 Chief Complaint: [Right arm pain and chest pain] History of Present Illness: The patient is a 78 F [presents the emergency department complaint of right arm pain and chest discomfort. Patient states that she developed onset of pain started in her hands that radiate to her elbow and her right shoulder. Patient gives history of recent surgery on her cervical spine. Patient is a very poor informant and does not know where she had her surgery or who her surgeon was. Patient presents from halfway. Patient also complains of right sided sharp chest discomfort. She denies any shortness of breath. Patient has history of coronary artery disease, hypertension, spinal stenosis, hypothyroidism, and diabetes.] Physical Examination: [HEENT-PERRLA, EOMI. Cranial nerves II through XII grossly intact. TMs clear. Mucous membranes moist. No adenopathy. Patient has a cervical collar in place. Cardiovascular-regular rate and rhythm without murmur or ectopy Lungs-clear to auscultation, chest wall stable without crepitus or subcu emphysema Abdomen-normoactive bowel sounds, soft, nontender, no rebound or rigidity, no peritoneal signs. Extremities-intact 4, normal range of motion, normal pulses, atraumatic]. Right arm-patient has diffuse tenderness about the right elbow, forearm, and hand. Patient has normal range of motion at the elbow and all digits. Patient has normal pulses of the right arm and normal cap refill. Test Results: [EKG obtained on arrival shows sinus rhythm with a ventricular rate of 71 bpm with first-degree AV block and left bundle branch block noted. CBC with differential showed a white count of 8.1, hemoglobin 10.5, hematocrit 33, platelets 250. Chemistries unremarkable. Glucose was elevated 314. Troponin is less than 0.015. D- dimer was elevated at 3.39 therefore CTA of the chest was obtained which showed small bilateral pulmonary emboli in the peripheral branches.] Emergency Department Course and Treatment: [Patient case was discussed with hospitalist will evaluate patient for admission. I also attempted to contact patient's surgeon of record Dr. Juan Daniel Garcia who was not available however I was able to speak with his partner who is on-call and made him aware of patient's condition and findings. stated that any anticoagulation that we wanted to use should not be a problem.] Treatment Plan: [Admit for pain control and anticoagulation. Patient states that her right arm pain actually is been ongoing for over 2 weeks and is not new. I do not feel any imaging of her cervical spine was indicated at this time.] Disposition: [Admit] Impression: [Right arm pain Bilateral pulmonary emboli] This note was generated with [employer] dictation software. It may contain incorrect words, spelling, and punctuation that were not noted in review of the chart prior to signing ED Disposition - Plan for ED Patient: Chief Complaint: Upper Extremity Injury What to do if you have Problems For any increased pain, shortness of breath, bleeding, nausea or vomiting, chest pain, or any unexpected problems, contact your Primary Care Provider. Call [facility] ([phone]) or report to the closest Emergency Room. Call 911 if necessary. 04/13/18 1536 <Electronically signed by Elin Barboza DO> Date Elin Barboza DO Cosigner Signature (If Indicated): Date CC: PNP-C Latia Chapa CTA CHEST W/WO Observed: 04/13/2018 Status: F Source: INGE CONTRAST 1:51 PM [facility] REPOSITORY [facility] Imaging Services [address] [place] [address] CTA Chest W/WO Contrast MR#: [id number] Acct: [id number] Name: NO NOBLE John Rep #: [id number] : 1940 F 78 From: Jens Thurman MD PCP: HIMANSHU Gill Status: REG ER Study: CTA Chest W/WO Contrast Date of Exam: 04/13/18 Exam# [id number] Ordering Dr: Elin Barboza DO STUDY: CTA CHEST REASON FOR EXAM: Female, 78 years old. Chest pain. RADIATION DOSAGE (If Supplied By Facility): CTDIvol = ( 17.38 ) mGy, DLP = ( 621.18 ) mGycm TECHNIQUE: The examination was performed with the intravenous administration of 100ML ml of Isovue 300 contrast material. Post-processing of the angiographic images was performed, with multiplanar reformation and 3D reconstruction. Individualized dose optimization techniques were used for this CT. COMPARISON: Comparison is made with prior chest radiograph done earlier in the day. FINDINGS: Diffuse enlargement of the right lobe of the thyroid with the substernal extension. Small hypodense nodules in the right lobe. There are several small nonocclusive intraluminal filling defects in the proximal branches of the left upper lobe pulmonary artery as well as in the right middle lobe peripheral branches and left lower lobe peripheral branches. There is atherosclerotic calcification of the aortic arch with tortuosity. There is no demonstrated aortic dissection. Sternal cerclage wires and vascular clips are present from a prior sternotomy and coronary artery bypass graft procedure (CABG). Normal mediastinum. Normal hilar regions. Normal visualized trachea and bronchi. The lungs are well expanded. There is a 7.8 mm x 4.9 mm noncalcified nodule in the right upper lobe adjacent to the right minor fissure. Mild increased markings at the lung bases suggestive of scarring. Normal pleura. Normal chest wall structures. There are degenerative changes of thoracic spine. The patient is status post cholecystectomy. Questionable 2.2 cm x 2.5 cm solid mass arising from the upper lateral aspect of the left kidney. Small hiatal hernia. CT/CTA Chest W/WO Contrast IMPRESSION: Several small peripheral intraluminal filling defects involving pulmonary branches as described. Possible solid left renal mass. 7.8 mm x 4.9 mm noncalcified nodule in the right upper lobe adjacent to the right minor fissure. Enlarged right lobe of the thyroid. Electronically Signed: Jens Thurman MD at 14:29 EDT Tel [phone], Service support , CC: HIMANSHU Chapa; Elin Barboza DO Dry Boss: Signed CBC W/DIFF, AUTOMATED Collected: 04/13/2018 Status: F Source: INGE 1:20 PM [facility] REPOSITORY TYPE CODE TESTS RESULT OUT OF RANGE REFERENCE UNITS LAB L100.1000 4.4-11.0 K/mm3 Normal WBC 8.1 LAB L100.1200 4.2-5.4 M/mm3 Low RBC 3.58 LAB L100.1300 12.0-15.0 g/dl Low HGB 10.5 LAB L100.1400 37-47 % Low HCT 32.9 LAB L100.1500 81-99 fL Normal MCV 91.9 LAB L100.1600 27.0-32.0 pg Normal MCH 29.3 LAB L100.1700 32-36 g/gl Low MCHC 31.9 LAB L100.1810 11.6-14.6 % Normal RDW CV 14.3 LAB L100.1820 35.1-43.9 fl High RDW SD 48.4 LAB L100.1900 150-450 K/mm3 Normal PLT 250 LAB L100.2000 6.2-12.0 fl Normal MPV 9.6 LAB L100.2100 47-70 % Normal NEUT% 68.7 LAB L100.2200 19-41 % Normal LY% 21.9 LAB L100.2300 0-10 % Normal MONO% 4.3 LAB L100.2400 0-5 % Normal EO% 4.7 LAB L100.2500 0-1 % Normal BASO% 0.4 LAB L100.2550 0.0-0.9 % Normal IM GRAN % 0.000 Result Comment: IG% - Immature Granulocytes (promyelocytes, myelocytes and metamyelocytes) > 1% indicates that a LEFT SHIFT is Present. LAB L100.2620 2.0-7.7 X10 3/uL Normal Absolute Neut 5.5 LAB L100.2720 0.83-4.51 X10 3/ul Normal Absolute Lymph 1.76 Performed By: #### L100.0100 #### [facility] [address] [place], [address] BASIC METABOLIC Collected: 04/13/2018 Status: F Source: CORNING PROFILE ([facility]) 1:20 PM [facility] REPOSITORY TYPE CODE TESTS RESULT OUT OF RANGE REFERENCE UNITS LAB L501.0100 74-106 mg/dL High GLU 314 Result Comment: Glucose result greater than or equal to 200 mg/dL suggests DIABETES MELLITUS per A.D.A. criteria. Please note revised GLUCOSE reference range effective 2017. LAB L501.1000 7-18 mg/dL Normal BUN 16 LAB L501.1100 0.55-1.02 mg/dL High CREAT,SERUM 1.30 Result Comment: The validity of the calculated GFR AND GFRAA in patients over 70 years has not been determined. Clinical correlation is essential. LAB L501.1110 >60 mL/min Low EST GFR 42 Result Comment: Non- GFR Calc LAB L501.1115 >60 mL/min Low EST GFR - AA 51 Result Comment: GFR Calc LAB L501.1255 ml/min Normal Estimated CRCL 31.29 LAB L501.1300 10-20 RATIO Normal BUN/CRE 12.3 LAB L501.2200 8.5-10 mg/dL Normal .1 CA 8.8 LAB L501.5300 136-14 mmol/L Low 5 NA 132 LAB L501.5600 3.5-5. mmol/L Normal 1 K 4.0 LAB L501.5900 98-107 mmol/L Low CL 96 LAB L501.6100 21.0-3 mmol/L Normal 2.0 CO2 27.0 LAB L501.6200 5-15 Normal GAP 9 Performed By: #### L500.2500, L501.4010 #### [facility] [address] [facility]. [place], [place], [id number] TROPONIN-I Collected: 04/13/2018 Status: F Source: CORNING 1:20 PM [facility] REPOSITORY TYPE CODE TESTS RESULT OUT OF RANGE REFERENCE UNITS LAB L501.4010 <0.045 ng/mL Normal < 0.015 TROPONIN-I Result Comment: TROPONIN-I EXPECTED VALUES <0.045 Negative 0.045 - 0.590 Consistent with Cardiac Damage > OR = 0.600 Critical Value Not every elevated troponin is indicative of [place]. These values should be used with clinical judgement in examining the patient's clinical picture for diagnosis. To establish a diagnosis of [place] versus myocardial injury, there must be a demonstrated rise and/or fall in the troponin values, in addition to ischemic symptoms, EKG changes, new regional wall motion abnormality, and/or angiographical evidence. PLEASE NOTE: REFERENCE RANGES EDITED 18 Performed By: #### L500.2500, L501.4010 #### [facility] [address] [facility] [place], [address] D-DIMER QUANTITATIVE Collected: 04/13/2018 Status: F Source: CORNING (DVT/PE) 1:20 PM [facility] REPOSITORY TYPE CODE TESTS RESULT OUT OF RANGE REFERENCE UNITS LAB L300.8000 0.27-0.49 FEU/ug/m High alert D-DIMER 3.39 QUANT Result Comment: D-Dimer ELEVATED (>0.49): Additional studies and clinical assessments are indicated to conclude diagnosis of: Deep Vein Thrombosis (DVT) or Pulmonary Embolism (PE) CRITICAL VALUE VERIFIED. CALLED TO LAYO JACINTO 04/13/18 Yamilet Shavon Ear. RESULTS READ BACK BY SAME . Performed By: #### L300.8000 #### [facility] [address] [place], [address] CHEST 1 VIEW Observed: 04/13/2018 Status: F Source: CORNING (PORTABLE) 12:56 PM [facility] REPOSITORY [facility] Imaging Services [address] [place] [address] Chest 1 View (Portable) MR#: [id number] Acct: [id number] Name: NO NOBLE Rep #: [id number] : 1940 F 78 From: Jens Thurman MD PCP: Latia Chapa, SKYLERC Status: REG ER Study: Chest 1 View (Portable) Date of Exam: 04/13/18 Exam# [id number] Ordering Dr: Elin Barboza DO STUDY: X-RAY CHEST REASON FOR EXAM: Female, 78 years old. Right arm pain. Chest pain. Recent cervical surgery. TECHNIQUE: Single AP portable view of the chest. COMPARISON: Comparison is made with prior study dated March 17, 2018. FINDINGS: EKG electrodes are seen. The lungs are clear and expanded. There is no demonstrated pleural abnormality. Sternal cerclage wires and vascular clips are present from a prior sternotomy and coronary artery bypass graft procedure (CABG). Normal mediastinum and holli. Normal visualized pulmonary arteries. There is atherosclerotic calcification of the aortic arch with tortuosity. Status post fusion in the lower cervical spine. Normal visualized ribs, clavicles, and shoulders. There is no demonstrated abnormality of the visualized soft tissue structures of the upper abdomen. RAD/Chest 1 View (Portable) IMPRESSION: No acute abnormality is seen. Electronically Signed: Jens Thurman MD at 13:13 EDT Tel [phone], Service support , CC: HIMANSHU Chapa; Elin Barboza DO Dry Boss: Signed GLUCOSE,BEDSIDE Collected: 03/23/2018 Status: F Source: [facility] 12:55 PM SYSTEM REPOSITORY TYPE CODE TESTS RESULT OUT OF RANGE REFERENCE UNITS LAB BGLU 70-100 mg/dL High 229 Glucose,Beds destini Result Comment: Test performed by glucose meter. Results may be 10%-15% lower than serum/plasma values. (CLIA ID [id number]) Performed By: #### BGLU #### [facility] [address] [place] [phone] GLUCOSE,BEDSIDE Collected: 03/23/2018 Status: F Source: [facility] 6:58 AM SYSTEM REPOSITORY TYPE CODE TESTS RESULT OUT OF RANGE REFERENCE UNITS LAB BGLU 70-100 mg/dL High 282 Glucose,Beds destini Result Comment: Test performed by glucose meter. Results may be 10%-15% lower than serum/plasma values. (CLIA ID [id number]) Performed By: #### BGLU #### [facility] [address] [place] [phone] POTASSIUM Collected: 03/23/2018 Status: F Source: [facility] 5:50 AM SYSTEM REPOSITORY TYPE CODE TESTS RESULT OUT OF RANGE REFERENCE UNITS LAB K3 3.5-5.1 mmol/L Normal Potassium 5.0 Performed By: #### K3 #### [facility] [address] [place] [phone] GLUCOSE,BEDSIDE Collected: 03/23/2018 Status: F Source: [facility] 4:53 AM SYSTEM REPOSITORY TYPE CODE TESTS RESULT OUT OF RANGE REFERENCE UNITS LAB BGLU 70-100 mg/dL High 340 Glucose,Beds destini Result Comment: Test performed by glucose meter. Results may be 10%-15% lower than serum/plasma values. (CLIA ID [id number]) Performed By: #### BGLU #### [facility] [address] [place] [phone] GLUCOSE,BEDSIDE Collected: 03/23/2018 Status: F Source: [facility] 2:49 AM SYSTEM REPOSITORY TYPE CODE TESTS RESULT OUT OF RANGE REFERENCE UNITS LAB BGLU 70-100 mg/dL High 241 Glucose,Beds destini Result Comment: Test performed by glucose meter. Results may be 10%-15% lower than serum/plasma values. (CLIA ID [id number]) Performed By: #### BGLU #### [facility] [address] [place] [address] HEMOGRAM Collected: 03/23/2018 Status: F Source: [facility] 12:23 AM SYSTEM REPOSITORY TYPE CODE TESTS RESULT OUT OF RANGE REFERENCE UNITS LAB IWBC 3.6-10.7 10*3/uL WBC Normal 10.5 LAB RBC 3.80-5.20 10*6/uL RBC Normal 3.85 LAB HGB 11.7-16.0 g/dL Low Hemoglobin 11.6 LAB HCT 35.0-47.0 % Low Hematocrit 34.3 LAB MCV 79.0-98.0 fL MCV Normal 89.3 LAB MCH 26.0-34.0 pg MCH Normal 30.1 LAB MCHC 32.0-36.0 % MCHC Normal 33.7 LAB RDW 11.5-14.5 % High RDW 14.9 LAB PLT 140-440 10*3/uL Platelet Normal 263 LAB MPV 7.4-10.4 fL MPV Normal 9.1 Performed By: #### HEMOG, BMP3, MG3 #### [facility] [address] [place] [address] BASIC METABOLIC PANEL Collected: 03/23/2018 Status: F Source: [facility] 12:23 AM SYSTEM REPOSITORY TYPE CODE TESTS RESULT OUT OF RANGE REFERENCE UNITS LAB NA3 137-145 mmol/L Low Sodium 136 LAB K3 3.5-5.1 mmol/L High Potassium 5.6 LAB CL3 98-107 mmol/L Chloride Normal 106 LAB CO23 22-30 mmol/L Low Carbon Dioxide 21 LAB ANIN3 NA Anion Gap 10 LAB GLUC3 70-100 mg/dL High Glucose 265 LAB BUN3 7-20 mg/dL High Urea Nitrogen 32 LAB CRET3 0.52-1.25 mg/dL High Creatinine 1.29 LAB GF3BR >60 mL/min eGFR 48.6 LAB GF3WR >60 mL/min eGFR OTHER 40.1 Result Comment: Source- MDRD equation with creatinine calibration to IDMS(NKDEP) eGFR not recommended for drug dose adjustment LAB CA3 8.4-10.4 mg/dL Normal Calcium 8.9 Performed By: #### HEMOG, BMP3, MG3 #### [facility] [address] [place] [address] MAGNESIUM Collected: 03/23/2018 Status: F Source: [facility] 12:23 AM SYSTEM REPOSITORY TYPE CODE TESTS RESULT OUT OF RANGE REFERENCE UNITS LAB MG3 1.6-2.3 mg/dL Normal Magnesium 1.8 Performed By: #### HEMOG, BMP3, MG3 #### [facility] [place] [address] GLUCOSE,BEDSIDE Collected: 03/22/2018 Status: F Source: [facility] 8:43 PM SYSTEM REPOSITORY TYPE CODE TESTS RESULT OUT OF RANGE REFERENCE UNITS LAB BGLU 70-100 mg/dL High 253 Glucose,Beds destnii Result Comment: Test performed by glucose meter. Results may be 10%-15% lower than serum/plasma values. (CLIA ID [id number]) Performed By: #### BGLU #### [facility] [address] [place] [phone] GLUCOSE,BEDSIDE Collected: 03/22/2018 Status: F Source: [facility] 5:20 PM SYSTEM REPOSITORY TYPE CODE TESTS RESULT OUT OF RANGE REFERENCE UNITS LAB BGLU 70-100 mg/dL High 135 Glucose,Beds destini Result Comment: Test performed by glucose meter. Results may be 10%-15% lower than serum/plasma values. (CLIA ID [id number]) Performed By: #### BGLU #### [facility] [address] [place] [phone] GLUCOSE,BEDSIDE Collected: 03/22/2018 Status: F Source: [facility] 4:05 PM SYSTEM REPOSITORY TYPE CODE TESTS RESULT OUT OF RANGE REFERENCE UNITS LAB BGLU 70-100 mg/dL High 117 Glucose,Beds destini Result Comment: Test performed by glucose meter. Results may be 10%-15% lower than serum/plasma values. (CLIA ID [id number]) Performed By: #### BGLU #### [facility] [address] [place] [phone] GLUCOSE,BEDSIDE Collected: 03/22/2018 Status: F Source: [facility] 3:35 PM SYSTEM REPOSITORY TYPE CODE TESTS RESULT OUT OF RANGE REFERENCE UNITS LAB BGLU 70-100 mg/dL High 122 Glucose,Beds destini Result Comment: Test performed by glucose meter. Results may be 10%-15% lower than serum/plasma values. (CLIA ID [id number]) Performed By: #### BGLU #### [facility] [address] [place] [address] GLUCOSE,BEDSIDE Collected: 03/22/2018 Status: F Source: [facility] 12:34 PM SYSTEM REPOSITORY TYPE CODE TESTS RESULT OUT OF RANGE REFERENCE UNITS LAB BGLU 70-100 mg/dL High 127 Glucose,Beds destini Result Comment: Test performed by glucose meter. Results may be 10%-15% lower than serum/plasma values. (CLIA ID [id number]) Performed By: #### BGLU #### [facility] [place] [address] GLUCOSE,BEDSIDE Collected: 03/22/2018 Status: F Source: [facility] 8:44 AM SYSTEM REPOSITORY TYPE CODE TESTS RESULT OUT OF RANGE REFERENCE UNITS LAB BGLU 70-100 mg/dL High 127 Glucose,Beds destini Result Comment: Test performed by glucose meter. Results may be 10%-15% lower than serum/plasma values. (CLIA ID [id number]) Performed By: #### BGLU #### [facility] [place] [place] [id number] GLUCOSE,BEDSIDE Collected: 03/22/2018 Status: F Source: [facility] 6:32 AM SYSTEM REPOSITORY TYPE CODE TESTS RESULT OUT OF RANGE REFERENCE UNITS LAB BGLU 70-100 mg/dL High 145 Glucose,Beds destini Result Comment: Test performed by glucose meter. Results may be 10%-15% lower than serum/plasma values. (CLIA ID [id number]) Performed By: #### BGLU #### [facility] [address] [place] [address] HEMOGRAM Collected: 03/22/2018 Status: F Source: [facility] 12:04 AM SYSTEM REPOSITORY TYPE CODE TESTS RESULT OUT OF RANGE REFERENCE UNITS LAB IWBC 3.6-10.7 10*3/uL High WBC 12.6 LAB RBC 3.80-5.20 10*6/uL Low RBC 3.65 LAB HGB 11.7-16.0 g/dL Low Hemoglobin 11.0 LAB HCT 35.0-47.0 % Low Hematocrit 32.9 LAB MCV 79.0-98.0 fL MCV Normal 89.9 LAB MCH 26.0-34.0 pg MCH Normal 30.1 LAB MCHC 32.0-36.0 % MCHC Normal 33.5 LAB RDW 11.5-14.5 % RDW Normal 14.5 LAB PLT 140-440 10*3/uL Platelet Normal 268 LAB MPV 7.4-10.4 fL MPV Normal 9.6 Performed By: #### HEMOG, PT/AP, BMP3, MG3 #### [facility] [address] [place] [phone] PROTIME AND APTT Collected: 03/22/2018 Status: F Source: [facility] 12:04 AM SYSTEM REPOSITORY TYPE CODE TESTS RESULT OUT OF REFERENCE UNITS RANGE LAB PROTM 9.0-12.0 s Prothrombin Normal Time 10.0 Result Comment: . LAB INR 0.9-1.1 NA Normal INR 0.9 Result Comment: Recommended Anticoagulant Therapy: SEE BELOW ----- INR of 2.0 - 3.0 : - Prophylaxis of Venous Thrombosis (high-risk surgery) - Treatment of Venous Thrombosis - Treatment of Pulmonary Embolism (Includes tissue heart valves, Acute Myocardial Infarction to prevent systemic embolism, Valvular Heart Disease, and Atrial Fibrillation) ----- INR of 2.5 - 3.5 : - Mechanical Prosthetic Valves (high risk) - If oral anticoagulant therapy is used to prevent Myocardial Infarction LAB PTTA 20.0-30.5 s Normal APTT 20.4 Result Comment: NOTE: The therapeutic time for Heparin anticoagulation, based on Xa activity inhibition, is an APTT of 46-80 seconds. Performed By: #### HEMOG, PT/AP, BMP3, MG3 #### [facility] [address] [place] [phone] BASIC METABOLIC PANEL Collected: 03/22/2018 Status: F Source: [facility] 12:04 AM SYSTEM REPOSITORY TYPE CODE TESTS RESULT OUT OF RANGE REFERENCE UNITS LAB NA3 137-145 mmol/L Sodium Normal 138 LAB K3 3.5-5.1 mmol/L Normal Potassium 4.2 LAB CL3 98-107 mmol/L Chloride Normal 107 LAB CO23 22-30 mmol/L Carbon Normal Dioxide 22 LAB ANIN3 NA Anion Gap 10 LAB GLUC3 70-100 mg/dL High Glucose 186 LAB BUN3 7-20 mg/dL High Urea Nitrogen 36 LAB CRET3 0.52-1.25 mg/dL High Creatinine 1.46 LAB GF3BR >60 mL/min eGFR 42.1 LAB GF3WR >60 mL/min eGFR OTHER 34.7 Result Comment: Source- MDRD equation with creatinine calibration to IDMS(NKDEP) eGFR not recommended for drug dose adjustment LAB CA3 8.4-10.4 mg/dL Normal Calcium 9.2 Performed By: #### HEMOG, PT/AP, BMP3, MG3 #### [facility] [address] [place] [phone] MAGNESIUM Collected: 03/22/2018 Status: F Source: [facility] 12:04 AM SYSTEM REPOSITORY TYPE CODE TESTS RESULT OUT OF RANGE REFERENCE UNITS LAB MG3 1.6-2.3 mg/dL Normal Magnesium 1.7 Performed By: #### HEMOG, PT/AP, BMP3, MG3 #### [facility] [address] [place] [phone] GLUCOSE,BEDSIDE Collected: 03/21/2018 Status: F Source: [facility] 8:36 PM SYSTEM REPOSITORY TYPE CODE TESTS RESULT OUT OF RANGE REFERENCE UNITS LAB BGLU 70-100 mg/dL High 248 Glucose,Beds destini Result Comment: Test performed by glucose meter. Results may be 10%-15% lower than serum/plasma values. (CLIA ID [id number]) Performed By: #### BGLU #### [facility] [address] [place] [phone] GLUCOSE,BEDSIDE Collected: 03/21/2018 Status: F Source: [facility] 4:53 PM SYSTEM REPOSITORY TYPE CODE TESTS RESULT OUT OF RANGE REFERENCE UNITS LAB BGLU 70-100 mg/dL High 287 Glucose,Beds destini Result Comment: Test performed by glucose meter. Results may be 10%-15% lower than serum/plasma values. (CLIA ID [id number]) Performed By: #### BGLU #### [facility] [address] [place] [phone] 12 LEAD ELECTROCARDIOGRAM Observed: 03/21/2018 Status: F Source: INGE 3:44 PM [facility] REPOSITORY [facility] Cardiovascular Services [address] [place] [address] 12 Lead EKG 03/17/18 0745 MR#: [id number] Acct: [id number] Name: NO NOBLE Rep #: [id number] : 1940 78 From: Shan Henry MD Attending Dr: Claudia Cruz MD Status: DIS IN Ordering Dr: Justus Gutierrez MD Date: 03/17/18 Location: [facility] Sex: F C Admitted: 03/18/18 Test Reason : DIZZY Blood Pressure : / mmHG Vent. Rate : 059 BPM Atrial Rate : 059 BPM P-R Int : 214 ms QRS Dur : 146 ms QT Int : 506 ms P-R-T Axes : 099 -31 180 degrees QTc Int : 500 ms Sinus bradycardia with 1st degree A-V block Left axis deviation Left bundle branch block Abnormal ECG Confirmed by SHAN HENRY MD ([id number]), editor farm journal DAMIAN MCCRACKEN ([id number]) on 03/21/2018 3:43:47 PM Referred By: LILA Confirmed By:SHAN HENRY MD 03/21/18 1543 Date Shan Henry MD CC: PNP-C Latia Chapa; JUSTUS GUTIERREZ MD; Claudia Cruz MD Signed Observed: 03/21/2018 Status: F Source: [facility] CULTURE URINE 12:08 PM SYSTEM REPOSITORY Order Comment: Specimen Source Comment:Urine, clean catch 1 Organism Escherichia coli >100,000 CFU/ml 1 Organism Antibiotic Result Intrp Amikacin(TAMIKO) <= 2 S Amoxicillin/Clavulanic Acid(TAMIKO) <= 2 S Ampicillin(TAMIKO) <= 2 S Ampicillin/Sulbactam(TAMIKO) <= 2 S Aztreonam(TAMIKO) <= 1 S Cefazolin(TAMIKO) <= 4 S Cefepime(TAMIKO) <= 1 S Ceftriaxone(TAMIKO) <= 1 S Ciprofloxacin(TAMIKO) <= 0.25 S Ertapenem(TAMIKO) <= 0.5 S Gentamicin(TAMIKO) <= 1 S Levofloxacin(TAMIKO) <= 0.12 S Meropenem(TAMIKO) <= 0.25 S Nitrofurantoin(TAMIKO) <= 16 S Pip/Tazobactam(TAMIKO) <= 4 S Trimeth/Sulfa(TAMIKO) <= 20 S Performed By: #### C/UR #### [facility] [address] [place] [phone] [facility] [address] [place] [phone] GLUCOSE,BEDSIDE Collected: 03/21/2018 Status: F Source: [facility] 11:49 AM SYSTEM REPOSITORY TYPE CODE TESTS RESULT OUT OF RANGE REFERENCE UNITS LAB BGLU 70-100 mg/dL High 330 Glucose,Beds destini Result Comment: Test performed by glucose meter. Results may be 10%-15% lower than serum/plasma values. (CLIA ID [id number]) Performed By: #### BGLU #### [facility] [address] [place] [phone] GLUCOSE,BEDSIDE Collected: 03/21/2018 Status: F Source: [facility] 7:51 AM SYSTEM REPOSITORY TYPE CODE TESTS RESULT OUT OF RANGE REFERENCE UNITS LAB BGLU 70-100 mg/dL High 279 Glucose,Beds destini Result Comment: Test performed by glucose meter. Results may be 10%-15% lower than serum/plasma values. (CLIA ID [id number]) Performed By: #### BGLU #### [facility] [address] [address] HEMOGRAM Collected: 03/21/2018 Status: F Source: [facility] 1:42 AM SYSTEM REPOSITORY TYPE CODE TESTS RESULT OUT OF RANGE REFERENCE UNITS LAB IWBC 3.6-10.7 10*3/uL High WBC 11.0 LAB RBC 3.80-5.20 10*6/uL RBC Normal 3.93 LAB HGB 11.7-16.0 g/dL Normal Hemoglobin 11.9 LAB HCT 35.0-47.0 % Normal Hematocrit 35.2 LAB MCV 79.0-98.0 fL MCV Normal 89.5 LAB MCH 26.0-34.0 pg MCH Normal 30.4 LAB MCHC 32.0-36.0 % MCHC Normal 33.9 LAB RDW 11.5-14.5 % RDW Normal 14.4 LAB PLT 140-440 10*3/uL Platelet Normal 270 LAB MPV 7.4-10.4 fL MPV Normal 9.9 Performed By: #### HEMOG, BMP3, MG3 #### [address] [address] BASIC METABOLIC PANEL Collected: 03/21/2018 Status: F Source: [facility] 1:42 AM SYSTEM REPOSITORY TYPE CODE TESTS RESULT OUT OF RANGE REFERENCE UNITS LAB NA3 137-145 mmol/L Low Sodium 135 LAB K3 3.5-5.1 mmol/L Normal Potassium 4.5 LAB CL3 98-107 mmol/L Chloride Normal 103 LAB CO23 22-30 mmol/L Carbon Normal Dioxide 23 LAB ANIN3 NA Anion Gap 9 LAB GLUC3 70-100 mg/dL High Glucose 327 LAB BUN3 7-20 mg/dL High Urea Nitrogen 30 LAB CRET3 0.52-1.25 mg/dL High Creatinine 1.28 LAB GF3BR >60 mL/min eGFR 49.0 LAB GF3WR >60 mL/min eGFR OTHER 40.4 Result Comment: Source- MDRD equation with creatinine calibration to IDMS(NKDEP) eGFR not recommended for drug dose adjustment LAB CA3 8.4-10.4 mg/dL Normal Calcium 9.4 Performed By: #### HEMOG, BMP3, MG3 #### [facility] [address] [place] [address] MAGNESIUM Collected: 03/21/2018 Status: F Source: [facility] 1:42 AM SYSTEM REPOSITORY TYPE CODE TESTS RESULT OUT OF RANGE REFERENCE UNITS LAB MG3 1.6-2.3 mg/dL Normal Magnesium 1.9 Performed By: #### HEMOG, BMP3, MG3 #### [facility] [address] [place] [address] GLUCOSE,BEDSIDE Collected: 03/20/2018 Status: F Source: [facility] 8:20 PM SYSTEM REPOSITORY TYPE CODE TESTS RESULT OUT OF RANGE REFERENCE UNITS LAB BGLU 70-100 mg/dL High 303 Glucose,Beds destini Result Comment: Test performed by glucose meter. Results may be 10%-15% lower than serum/plasma values. (CLIA ID [id number]) Performed By: #### BGLU #### [facility] [address] [place] [address] CR PELVIS 1 OR 2 Observed: 03/20/2018 Status: F Source: [employer] 7:14 PM SYSTEM REPOSITORY Patient Name: NO NOBLE Diagnostic Radiology Exam Date/Time 03/20/2018 11:49:51 EDT Exam CR Pelvis 1 or 2 Views Ordering Physician LANDY WILLIS HEATHER Accession Number [id number] CPT4 Codes 27252 () Reason For Exam fall Report PELVIS SINGLE VIEW CLINICAL INDICATION: fall TECHNIQUE: AP view of the pelvis. COMPARISON: None FINDINGS: SI joints and pubic symphysis appear intact. Bilateral hip joint spaces appear normal. Femoral head and femoral neck appear normal bilaterally. No acute fracture or dislocation seen. IMPRESSION: 1. Negative. Report Dictated on Final Dictated: 03/20/2018 7:14 pm Dictating Physician: MD IGNACIA, RUPA Moore Signed Date and Time: 03/20/2018 7:14 pm Signed by: MD BETH JOHN R Transcribed Date and Time: 03/20/2018 7:14 CR ANKLE 2 VIEWS Observed: 03/20/2018 Status: F Source: [facility] 7:13 PM SYSTEM REPOSITORY Patient Name: NO NOBLE Diagnostic Radiology Exam Date/Time 03/20/2018 11:49:27 EDT Exam CR Ankle 2 Views Left Ordering Physician VAUGHN AYALA Accession Number [id number] CPT4 Codes 38241 () Reason For Exam swelling Report LEFT ANKLE TWO VIEWS CLINICAL INDICATION: swelling TECHNIQUE: Two views of the left ankle. COMPARISON: None FINDINGS: Ankle mortise intact. No acute fractures seen. Small plantar spur. Tiny remote avulsions of the medial and lateral malleolus. IMPRESSION: 1. No acute finding. Report Dictated on Final Dictated: 03/20/2018 7:13 pm Dictating Physician: MD BETH JOHN R Signed Date and Time: 03/20/2018 7:13 pm Signed by: MD BETH JOHN R Transcribed Date and Time: 03/20/2018 7:13 CR CHEST PORTABLE Observed: 03/20/2018 Status: F Source: [facility] 7:13 PM SYSTEM REPOSITORY Patient Name: NO NOBLE Diagnostic Radiology Exam Date/Time 03/20/2018 11:50:07 EDT Exam CR Chest Portable Ordering Physician LANDY WILLIS HEATHER Accession Number [id number] CPT4 Codes 13655 () Reason For Exam fall Report SINGLE FRONTAL VIEW OF THE CHEST CLINICAL INDICATION: fall TECHNIQUE: Single frontal view of the chest COMPARISON: None FINDINGS: Status post CABG. Lungs are clear. No pleural effusion or pneumothorax. No vascular congestion. Heart size normal. IMPRESSION: 1. No acute finding. Report Dictated on Final Dictated: 03/20/2018 7:13 pm Dictating Physician: MD BETH JOHN R Signed Date and Time: 03/20/2018 7:14 pm Signed by: MD BETH JOHN R Transcribed Date and Time: 03/20/2018 7:13 MRI BRAIN W/O Observed: 03/20/2018 Status: F Source: [facility] CONTRAST 7:10 PM SYSTEM REPOSITORY Patient Name: NO NOBLE MRI Exam Date/Time 03/20/2018 16:10:44 EDT Exam MRI Brain w/o Contrast Ordering Physician MARITZA WERNER Accession Number [id number] CPT4 Codes 15221 () Reason For Exam LOC Report MRI OF THE BRAIN WITHOUT GADOLINIUM CLINICAL INDICATION: LOC TECHNIQUE: Routine MRI of the brain without gadolinium. COMPARISON: None FINDINGS: No evidence of acute infarct on diffusion-weighted imaging. Brain volume is normal for age. Basal cisterns are not effaced. Ventricular system is normal for age. Major intracranial flow voids are visualized. Some fluid in the mastoid air cells on either side. No pathologic extra-axial fluid collection identified. No hemorrhage, mass effect, or midline shift. IMPRESSION: 1. No acute intracranial finding. 2. Small amount of fluid in the mastoid air cells bilaterally. Report Dictated on Final Dictated: 03/20/2018 7:10 pm Dictating Physician: MD BETH JOHN R Signed Date and Time: 03/20/2018 7:13 pm Signed by: MD BETH JOHN R Transcribed Date and Time: 03/20/2018 7:10 MRI SPINE CERVICAL Observed: 03/20/2018 Status: F Source: [facility] W/O CONTRAST 6:59 PM SYSTEM REPOSITORY Patient Name: NO NOBLE MRI Exam Date/Time 03/20/2018 16:30:08 EDT Exam MRI Spine Cervical w/o Contrast Ordering Physician MD RIVERO PAUL W Accession Number [id number] CPT4 Codes 75337 () Reason For Exam RUE pain, degenerative changes on C spine CT Report MRI OF THE CERVICAL SPINE WITHOUT GADOLINIUM CLINICAL INDICATION: RUE pain, degenerative changes on C spine CT TECHNIQUE: Routine MRI of the cervical spine without gadolinium. COMPARISON: None FINDINGS: Vertebral bodies are normal in height and alignment. Small hemangioma in the C7 vertebral body. Some fatty endplate marrow changes noted in the upper endplate of C4 with a small associated Schmorl's node. Normal vertebral artery flow voids are seen bilaterally. C2-C3: No disc protrusion, central, or foraminal stenosis. C3-C4: Mild disc osteophyte complex with uncovertebral joint hypertrophic changes. No significant central or foraminal stenosis. C4-C5: Moderate disc osteophyte complex with uncovertebral joint and endplate degenerative changes. Moderate foraminal narrowing bilaterally. Moderate spinal stenosis and mild cord impingement but increased signal in the cord. AP diameter of the canal in the midline about 4 mm. C5-C6: Mild disc osteophyte complex with uncovertebral joint hypertrophic changes. Moderate right and mild left foraminal narrowing. Mild spinal stenosis. C6-C7: Mild disc bulge with some uncovertebral joint hypertrophic changes. Mild spinal stenosis without obvious cord impingement. Mild right foraminal narrowing. Left neural foramen unremarkable. C7-T1: No disc protrusion, central, or foraminal stenosis. IMPRESSION: 1. Multilevel degenerative changes. Mild cord impingement at C4-C5 with cord edema. CTR: Results were discussed with LAYO Manrique at 7:10 PM on 03/20/2018. Report Dictated on Final Dictated: 03/20/2018 6:59 pm Dictating Physician: MD BETH JOHN R Signed Date and Time: 03/20/2018 7:10 pm Signed by: MD BETH JOHN R Transcribed Date and Time: 03/20/2018 6:59 GLUCOSE,BEDSIDE Collected: 03/20/2018 Status: F Source: [facility] 5:30 PM SYSTEM REPOSITORY TYPE CODE TESTS RESULT OUT OF RANGE REFERENCE UNITS LAB BGLU 70-100 mg/dL High 329 Glucose,Beds destini Result Comment: Test performed by glucose meter. Results may be 10%-15% lower than serum/plasma values. (CLIA ID [id number]) Performed By: #### BGLU #### [facility] [address] [place] [phone] GLUCOSE,BEDSIDE Collected: 03/20/2018 Status: F Source: [facility] 12:35 PM SYSTEM REPOSITORY TYPE CODE TESTS RESULT OUT OF RANGE REFERENCE UNITS LAB BGLU 70-100 mg/dL High 221 Glucose,Beds destini Result Comment: Test performed by glucose meter. Results may be 10%-15% lower than serum/plasma values. (CLIA ID [id number]) Performed By: #### BGLU #### [facility] [address] [address] VL VENOUS DUPLEX US Observed: 03/20/2018 Status: F Source: [facility] LOWER EXT BILATERAL 12:32 PM SYSTEM REPOSITORY Patient Name: NO NOBLE Ultrasound Exam Date/Time 03/20/2018 13:24:54 EDT Exam VL Venous Duplex US Lower Ext Bilateral Ordering Physician VAUGHN AYALA Accession Number [id number] CPT4 Codes 36355 () Reason For Exam swelling LLE Report [facility] --- Lower Extremity Venous Duplex Report Patient Name: DO CristyB: 1940 Study Date: 03/20/2018 No (78yrs) Age: 78 Account: [id number] Gender: F Loc: 1E BP: Ordering: Vaughn Ayala Technologist: Ordering Physician: Vaughn Ayala Supervisor Fabrication Department: Harjit Askew RVT, [facility] Interpreting Physician: Stephen Cotto MD --- Location: [facility] --- INDICATIONS: Swelling of limb. swelling left lower extremity. --- CONCLUSIONS 1. This is a normal study. --- IMPRESSIONS: - The superficial and deep systems of the bilateral lower extremities appear to be free of thrombus. - This is a normal study. --- STUDY DATA: Complete lower extremity venous duplex evaluation. Birthdate: Patient birthdate: 1940. Age: Patient is 78 yr old. Sex: Gender: female. Ethnicity: Ethnicity: white. Doppler flow study including spectral analysis, color and cormier scale imaging. Patient status: Inpatient. Procedure: A vascular evaluation was performed. The images were obtained using a Qui.lt E9 vascular ultrasound machine. The study was technically limited due to body habitus and edema. --- VENOUS FLOW AND IMAGING: + +-------+ +------- --+ !Location !Overall!Flow properties !Comments ! + +-------+ +------- --+ !Right common femoral !Patent !Normal phasicity; spontaneous;!------- --! ! ! !normal augmentation; ! ! ! ! !compressible ! ! + +-------+ +------- --+ !Right saphenofemoral !Patent !Compressible !------- --! !junction ! ! ! ! + +-------+ +------- --+ !Right profunda femoral !Patent ! !------- --! + +-------+ +------- --+ !R femoral proximal !Patent !Compressible !------- --! + +-------+ +------- --+ !R femoral mid !Patent !Normal phasicity; spontaneous;!------- --! ! ! !normal augmentation; ! ! ! ! !compressible ! ! + +-------+ +------- --+ !R femoral distal !Patent !Compressible !------- --! + +-------+ +------- --+ !Right popliteal !Patent !Normal phasicity; spontaneous;!------- --! ! ! !normal augmentation; ! ! ! ! !compressible ! ! + +-------+ +------- --+ !Right gastrocnemius !Patent !Compressible !------- --! + +-------+ +------- --+ !Right posterior tibial !Patent !Compressible !------- --! + +-------+ +------- --+ !Right peroneal !Patent !Compressible !------- --! + +-------+ +------- --+ !Right soleal !Patent !Compressible !------- --! + +-------+ +------- --+ !Right greater saphenous !Patent !Compressible !------- --! + +-------+ +------- --+ !Left common femoral !Patent !Normal phasicity; spontaneous;!------- --! ! ! !normal augmentation; ! ! ! ! !compressible ! ! + +-------+ +------- --+ !Left saphenofemoral !Patent !Compressible !------- --! !junction ! ! ! ! + +-------+ +------- --+ !Left profunda femoral !Patent ! !------- --! + +-------+ +------- --+ !L femoral proximal !Patent !Compressible !------- --! + +-------+ +------- --+ !L femoral mid !Patent !Normal phasicity; spontaneous;!------- --! ! ! !normal augmentation; ! ! ! ! !compressible ! ! + +-------+ +------- --+ !L femoral distal !Patent !Compressible !------- --! + +-------+ +------- --+ !Left popliteal !Patent !Normal phasicity; spontaneous;!------- --! ! ! !normal augmentation; ! ! ! ! !compressible ! ! + +-------+ +------- --+ !Left gastrocnemius !Patent !Compressible !------- --! + +-------+ +------- --+ !Left posterior tibial !Patent !Compressible !------- --! + +-------+ +------- --+ !Left peroneal !Patent !Compressible !------- --! + +-------+ +------- --+ !Left soleal !-------! !not seen.! + +-------+ +------- --+ !Left greater saphenous !Patent !Compressible !------- --! + +-------+ +------- --+ Electronically signed by: Stephen Cotto MD [id number]:[id number] Final Dictated: 03/20/2018 1:36 pm Dictating Physician: STEPHEN COTTO Signed Date and Time: 03/20/2018 1:35 pm Signed by: STEPHEN COTTO GLUCOSE,BEDSIDE Collected: 03/20/2018 Status: F Source: [facility] 7:45 AM SYSTEM REPOSITORY TYPE CODE TESTS RESULT OUT OF RANGE REFERENCE UNITS LAB BGLU 70-100 mg/dL High 163 Glucose,Beds destini Result Comment: Test performed by glucose meter. Results may be 10%-15% lower than serum/plasma values. (CLIA ID [id number]) Performed By: #### BGLU #### [facility] [address] [place] [phone] BASIC METABOLIC PANEL Collected: 03/20/2018 Status: F Source: [facility] 1:00 AM SYSTEM REPOSITORY TYPE CODE TESTS RESULT OUT OF RANGE REFERENCE UNITS LAB NA3 137-145 mmol/L Sodium Normal 137 LAB K3 3.5-5.1 mmol/L Normal Potassium 4.1 LAB CL3 98-107 mmol/L Chloride Normal 106 LAB CO23 22-30 mmol/L Carbon Normal Dioxide 23 LAB ANIN3 NA Anion Gap 8 LAB GLUC3 70-100 mg/dL High Glucose 212 LAB BUN3 7-20 mg/dL High Urea Nitrogen 24 LAB CRET3 0.52-1.25 mg/dL Normal Creatinine 1.20 LAB GF3BR >60 mL/min eGFR 52.8 LAB GF3WR >60 mL/min eGFR OTHER 43.5 Result Comment: Source- MDRD equation with creatinine calibration to IDMS(NKDEP) eGFR not recommended for drug dose adjustment LAB CA3 8.4-10.4 mg/dL Normal Calcium 8.8 Performed By: #### BMP3, PHOS3, HEMOG, HA1C2 #### [facility] [address] [place] [phone] PHOSPHORUS Collected: 03/20/2018 Status: F Source: [facility] 1:00 AM SYSTEM REPOSITORY TYPE CODE TESTS RESULT OUT OF RANGE REFERENCE UNITS LAB PHOS3 2.5-4.5 mg/dL Normal Phosphorus 4.2 Performed By: #### BMP3, PHOS3, HEMOG, HA1C2 #### [facility] [address] [place] [phone] HEMOGRAM Collected: 03/20/2018 Status: F Source: [facility] 1:00 AM SYSTEM REPOSITORY TYPE CODE TESTS RESULT OUT OF RANGE REFERENCE UNITS LAB IWBC 3.6-10.7 10*3/uL WBC Normal 8.4 LAB RBC 3.80-5.20 10*6/uL Low RBC 3.71 LAB HGB 11.7-16.0 g/dL Low Hemoglobin 11.2 LAB HCT 35.0-47.0 % Low Hematocrit 33.3 LAB MCV 79.0-98.0 fL MCV Normal 89.6 LAB MCH 26.0-34.0 pg MCH Normal 30.1 LAB MCHC 32.0-36.0 % MCHC Normal 33.5 LAB RDW 11.5-14.5 % RDW Normal 14.5 LAB PLT 140-440 10*3/uL Platelet Normal 240 LAB MPV 7.4-10.4 fL MPV Normal 9.6 Performed By: #### BMP3, PHOS3, HEMOG, HA1C2 #### [facility] [address] [place] [address] HEMOGLOBIN A1C Collected: 03/20/2018 Status: F Source: [facility] 1:00 AM SYSTEM REPOSITORY TYPE CODE TESTS RESULT OUT OF REFERENCE UNITS RANGE LAB A1C2 4.0-5.7 % High Hemoglobin A1C 9.9 Result Comment: --HgbA1C levels may not be accurate in patients who have renal disease, received recent blood transfusions, are anemic, or who have dyshemoglobinemia. LAB EAG2 mg/dL Estimated Avg Glucose 237 Performed By: #### BMP3, PHOS3, HEMOG, HA1C2 #### [facility] [address] [place] [address] MAGNESIUM Collected: 03/20/2018 Status: F Source: [facility] 1:00 AM SYSTEM REPOSITORY TYPE CODE TESTS RESULT OUT OF RANGE REFERENCE UNITS LAB MG3 1.6-2.3 mg/dL Normal Magnesium 1.8 Result Comment: Moderately hemolysed, interpret with caution. Performed By: #### MG3 #### [facility] [address] [place] [address] VIT D 25-OH, TOTAL Collected: 03/20/2018 Status: F Source: [facility] 1:00 AM SYSTEM REPOSITORY TYPE CODE TESTS RESULT OUT OF RANGE REFERENCE UNITS LAB VD25H 30-100 ng/mL Low Vit D 27 25-OH, Total Result Comment: Therapy is based on measurement of Total 25-OHD with the following classification levels: Less than 20 ng/mL: Indicative of Vit D deficiency 20-30 ng/mL: Suggests Vit D insufficiency Optimal: Greater than or equal to 30 ng/mL Test performed by [email or web address] Competitive Immunoassay, measuring Total Vitamin D, not individual fractions. Performed By: #### VD25H #### [facility] [address] [place] [address] GLUCOSE,BEDSIDE Collected: 03/19/2018 Status: F Source: [facility]hot 10:34 PM SYSTEM REPOSITORY TYPE CODE TESTS RESULT OUT OF RANGE REFERENCE UNITS LAB BGLU 70-100 mg/dL High 189 Glucose,Beds destini Result Comment: Test performed by glucose meter. Results may be 10%-15% lower than serum/plasma values. (CLIA ID [id number]) Performed By: #### BGLU #### [facility] [address] [place] [phone] [address] SPINE CERVICAL W/O Observed: 03/19/2018 Status: F Source: [facility] CONTRAST 7:01 PM SYSTEM REPOSITORY Patient Name: NO NOBLE CT Exam Date/Time 03/19/2018 18:37:[address] Spine Cervical w/o Contrast Ordering Physician MD PANCHO, CHELSEA Cisneros Accession Number [id number] CPT4 Codes 98379 () Reason For Exam fall, RUE weakness - fx or spinal cord injury? No MRI c-spine yet Report CT CERVICAL SPINE WITHOUT CONTRAST CLINICAL INDICATION: fall, RUE weakness - fx or spinal cord injury? No MRI c-spine yet TECHNIQUE: Noncontrast CT scan of the cervical spine. Multiplanar reformations. COMPARISON: None FINDINGS: Multinodular goiter noted. Numerous dental caries. No acute fracture or focal malalignment seen. No soft tissue swelling. Moderate multilevel degenerative changes. Mild spinal stenosis C4-C5 from disc osteophyte complex. Moderate foraminal narrowing bilaterally at C4-C5 as well. Moderate foraminal narrowing C5-C6 bilaterally from uncovertebral joint spurring. IMPRESSION: 1. Degenerative changes. Multinodular goiter. Dental caries. Report Dictated on Final Dictated: 03/19/2018 7:01 pm Dictating Physician: MD BETH JOHN R Signed Date and Time: 03/19/2018 7:07 pm Signed by: MD BETH JOHN R Transcribed Date and Time: 03/19/2018 7:01 HEMOGRAM Collected: 03/19/2018 Status: F Source: [facility]hot 6:12 PM SYSTEM REPOSITORY TYPE CODE TESTS RESULT OUT OF RANGE REFERENCE UNITS LAB IWBC 3.6-10.7 10*3/uL WBC Normal 7.9 LAB RBC 3.80-5.20 10*6/uL RBC Normal 3.88 LAB HGB 11.7-16.0 g/dL Normal Hemoglobin 11.7 LAB HCT 35.0-47.0 % Low Hematocrit 34.8 LAB MCV 79.0-98.0 fL MCV Normal 89.6 LAB MCH 26.0-34.0 pg MCH Normal 30.1 LAB MCHC 32.0-36.0 % MCHC Normal 33.6 LAB RDW 11.5-14.5 % High RDW 14.6 LAB PLT 140-440 10*3/uL Platelet Normal 253 LAB MPV 7.4-10.4 fL MPV Normal 8.4 Performed By: #### HEMOG, PT/AP, BMP3, LFT3, TROPN, TSH4 #### [facility] [address] [place] [phone] PROTIME AND APTT Collected: 03/19/2018 Status: F Source: [facility]hot 6:12 PM SYSTEM REPOSITORY TYPE CODE TESTS RESULT OUT OF REFERENCE UNITS RANGE LAB PROTM 9.0-12.0 s Prothrombin Normal Time 9.8 Result Comment: . LAB INR 0.9-1.1 NA Normal INR 0.9 Result Comment: Recommended Anticoagulant Therapy: SEE BELOW ----- INR of 2.0 - 3.0 : - Prophylaxis of Venous Thrombosis (high-risk surgery) - Treatment of Venous Thrombosis - Treatment of Pulmonary Embolism (Includes tissue heart valves, Acute Myocardial Infarction to prevent systemic embolism, Valvular Heart Disease, and Atrial Fibrillation) ----- INR of 2.5 - 3.5 : - Mechanical Prosthetic Valves (high risk) - If oral anticoagulant therapy is used to prevent Myocardial Infarction LAB PTTA 20.0-30.5 s Normal APTT 23.4 Result Comment: NOTE: The therapeutic time for Heparin anticoagulation, based on Xa activity inhibition, is an APTT of 46-80 seconds. Performed By: #### HEMOG, PT/AP, BMP3, LFT3, TROPN, TSH4 #### [facility] [address] [place] [phone] BASIC METABOLIC PANEL Collected: 03/19/2018 Status: F Source: [facility] 6:12 PM SYSTEM REPOSITORY TYPE CODE TESTS RESULT OUT OF RANGE REFERENCE UNITS LAB NA3 137-145 mmol/L Sodium Normal 137 LAB K3 3.5-5.1 mmol/L Normal Potassium 4.7 LAB CL3 98-107 mmol/L Chloride Normal 105 LAB CO23 22-30 mmol/L Carbon Normal Dioxide 23 LAB ANIN3 NA Anion Gap 8 LAB GLUC3 70-100 mg/dL High Glucose 255 LAB BUN3 7-20 mg/dL High Urea Nitrogen 26 LAB CRET3 0.52-1.25 mg/dL High Creatinine 1.37 LAB GF3BR >60 mL/min eGFR 45.3 LAB GF3WR >60 mL/min eGFR OTHER 37.4 Result Comment: Source- MDRD equation with creatinine calibration to IDMS(NKDEP) eGFR not recommended for drug dose adjustment LAB CA3 8.4-10.4 mg/dL Normal Calcium 9.0 Performed By: #### HEMOG, PT/AP, BMP3, LFT3, TROPN, TSH4 #### [facility] [address] [place] [phone] HEPATIC FUNCTION Collected: 03/19/2018 Status: F Source: [facility]hot 6:12 PM SYSTEM REPOSITORY TYPE CODE TESTS RESULT OUT OF RANGE REFERENCE UNITS LAB ALB3 3.5-5.0 g/dL Albumin, Normal Serum 4.0 LAB TP3 6.3-8.2 g/dL Total Normal Protein 7.3 LAB BILT3 0.2-1.3 mg/dL Normal Bilirubin,Total 0.5 LAB BILD3 0.0-0.3 mg/dL Normal Bilirubin,Direct 0.0 LAB ALKP3 38-126 U/L Alkaline Normal Phosphatase 90 LAB ALT3 13-69 U/L ALT (SGPT) Normal 38 LAB AST3 15-46 U/L AST (SGOT) Normal 42 Performed By: #### HEMOG, PT/AP, BMP3, LFT3, TROPN, TSH4 #### [facility] [address] [place] [phone] TROPONIN I Collected: 03/19/2018 Status: F Source: [facility]hot 6:12 PM SYSTEM REPOSITORY TYPE CODE TESTS RESULT OUT OF RANGE REFERENCE UNITS LAB TROP4 0.000-0.034 ng/mL Normal Troponin I < 0.012 Result Comment: 0.046 - 0.400 = Indeterminate > 0.400 = Consider Myocardial Injury Performed By: #### HEMOG, PT/AP, BMP3, LFT3, TROPN, TSH4 #### [facility] [address] [place] [phone] THYROID STIM. Collected: 03/19/2018 Status: F Source: [facility]hot HORMONE 6:12 PM SYSTEM REPOSITORY TYPE CODE TESTS RESULT OUT OF RANGE REFERENCE UNITS LAB TSH4 0.465-4.680 uU/mL Normal Thyroid Stim. 3.784 Hormone Performed By: #### HEMOG, PT/AP, BMP3, LFT3, TROPN, TSH4 #### [facility] [address] [place] [address] DISCHARGE SUMMARY Observed: 03/19/2018 Status: F Source: [place] 2:58 PM [facility] REPOSITORY [facility] Medical Records Department [address] [place] [address] Discharge Summary 03/19/18 1355 MR#: [id number] Acct: [id number] Name: NO NOBLE Rep #: [id number] : 1940 78 From: Shavon HOLLANDC PCP: HIMANSHU Gill Status: ADM IN Y Location: [place] [address] <Shavon Bradley - Last Filed: 03/19/18 14:05> Discharge Date and Diagnosis Date of Admission: 03/17/18 Date of Discharge: 03/19/18 - Primary Discharge Diagnosis Active and Suspected Problems 1. Vertigo due to BPPV 2. Atypical chest pain, noncardiac 3. 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 Electronically Signed: Jens Thurman MD at 10:22 EDT Tel [phone], Service support , Chest X-Ray 03/17/18 09:01 IMPRESSION: Findings in keeping with vascular congestion and mild degree of CHF. Electronically Signed: Jens Thurman MD at 10:19 EDT Tel [phone], Service support , Brain MRI 03/17/18 12:20 IMPRESSION: Minor atrophy and periventricular white matter ischemic changes without evidence for acute infarct. Electronically Signed: Kp Adame MD at 16:28 EDT , Service support , Elbow X-Ray 03/17/18 15:34 IMPRESSION: Normal x-ray examination of the elbow. Electronically Signed: Kp Adame MD at 19:41 EDT , Service support , Shoulder X-Ray 03/17/18 15:43 IMPRESSION: Degenerative changes. No evidence for acute fracture Electronically Signed: Kp Adame MD at 19:40 EDT , Service support , Wrist X-Ray 03/17/18 15:49 IMPRESSION: Mild arthritic changes. No evidence for acute fracture Electronically Signed: Kp Adame MD at 19:40 EDT , Service support , Cervical Spine CT 03/19/18 09:27 IMPRESSION: Severe central canal stenosis at C4-5. Severe bilateral foraminal stenoses at C4-5 and C5-6. No fractures or osteolytic lesions are seen. Electronically Signed: Alfonso Pozo MD at 10:47 EDT Tel , Service support , Operations: None Procedures: None Summary of Care Provided: The patient is a 78 year old F admitted 03/17/2018 due to vertigo. She has a past medical history of CAD status post CABG, hypertension, hyperlipidemia, type 2 diabetes mellitus, hypothyroidism, iron deficiency anemia and recent right carpal tunnel syndrome status post surgery. Patient treated for vertigo due to BPPV with meclizine. CT of head and MRA of brain negative for stroke. Dizziness increased with movement of head. Patient initially presented with chest pain which resolved. Troponin negative. EKG without evidence of ischemia. Patient complained of debility due to right arm pain, neck pain and headache for months. She recently had right carpal tunnel surgery without any improvement of symptoms. X-ray of the right shoulder showed narrowed glenohumeral articulation with normal acromioclavicular joint and normal acromion and normal humerus. Soft tissues unremarkable. Physical therapy recommended further skilled therapy. Patient was agreeable however CT of cervical spine showed severe central canal stenosis at C4-C5 and severe bilateral foraminal stenosis at C4-C5 and C5-C6 which may be contributing to her symptoms. [facility] contacted who is willing to accept patient for neurosurgery evaluation. Patient and family agreeable to this. Patient is stable of time of transfer to [facility]. General: Alert, Oriented x3, Cooperative HEENT: Atraumatic, PERRLA, EOMI, Normocephalic Oral: Moist Mucosa Neck: Supple, No JVD, Negative Carotid Bruits Lungs: Clear to auscultation, Normal air movement Cardiovascular: Regular rate, Regular Rhythm, Normal S1, Normal S2, No murmurs Abdomen: Bowel Sounds Present, Soft, Non Tender Extremities: No clubbing, No cyanosis, No edema, Capillary Refill Less than 3 Seconds Skin: No rashes, No breakdown Musculoskeletal: No Tenderness to Palpation of Joints or Extremities Lymphatic: No Cervical, Supraclavicular, or Inguinal Adenopathy Neurological: Cranial nerves II-XII grossly intact, Neuro grossly intact. Slightly weaker right upper extremity due to pain. Psych/Mental Status: Normal Affect, Appropriate Patient seen and examined prior to transfer. Physical assessment as noted above. Patient is stable at time of transfer to [facility] for further neurosurgery evaluation regarding severe central canal stenosis and severe foraminal stenosis. This patient was seen by HIMANSHU Marquez under the supervision of Dr. Cruz. Home Medications: Medications to take at Discharge Aspirin E.C. [Ecotrin] 81 mg PO DAILY 03/17/18 Atorvastatin Calcium 40 mg PO DAILY 03/17/18 Ergocalciferol [Vitamin D] 50,000 unit PO Q7D 03/17/18 Ferrous Sulfate [Iron] 325 mg PO DAILY 03/17/18 Gabapentin [Neurontin] 300 mg PO QHS 03/17/18 Insulin Detemir [Levemir FlexPen] 30 units SQ DAILY 03/17/18 Levothyroxine Sodium [Synthroid] 112 mcg PO DAILY 03/17/18 Losartan Potassium [Cozaar] 50 mg PO DAILY 03/17/18 Metoprolol Tartrate [Lopressor (Beta Aleida)] 50 mg PO BID 03/17/18 Oxycodone [Oxyir] 5 mg PO Q4H PRN PRN 03/17/18 Primary Care Physician: Latia Chapa NP-C [Primary Care Provider] - Disposition: Acute care Hospital Minutes spent on discharge:: 35 Patient Condition:: Stable Medical Necessity - Tobacco Use Smoking Status: Never smoker Meaningful Use Info Meaningful Use Diagnoses (Choose all that apply): None applicable <Claudia Cruz - Last Filed: 03/19/18 14:57> Discharge Date and Diagnosis - Secondary Discharge Diagnosis Chronic Problems HTN (hypertension) (Chronic) CAD (coronary artery disease) (Chronic) Hx of CABG (Chronic) Carpal tunnel syndrome on right (Chronic) Hospital Course and Treatment Imaging Results: 03/19/18 09:27 CT Cervical [Spine Cervical without Contras] [CT] Urgent Summary of Care Provided: Patient seen by Shavon DOWNS under my supervision. Agree with above note. The patient is a 78 year old F with a history of CAD status post CABG, hypertension, hyperlipidemia, type 2 diabetes, hypothyroidism and iron deficiency anemia as well as less recent right carpal tunnel syndrome status post surgery. She was admitted on 03/17/[address] due to [address] of the head was negative and MRI of the brain was also negative for stroke. Dizziness increased with movement of the head and so a diagnosis of BPPV was made. Patient became stable controlled even though she was unable to tolerate the Inverness-Hallpike maneuver and the Jessica maneuver. Patient kept complaining of right arm pain which radiated to her fingers with increased numbness of her fingers and said he had become much more severe event there was a chronic pain. CT of the cervical spine obtained shows severe central canal stenosis at C4-C5 and severe bilateral foraminal stenosis at C4-C5 and C5-C6. Patient's son wanted her to be discharged home as he was a physical therapist and so said he could take care of his mother at home, and set up neurosurgery appointments for her. I explained to family the severity of her cervical spine stenosis and benefit of urgent neurosurgery review. Decision was made to transfer patient to tertiary hospital for urgent neurosurgery evaluation.. [facility] accepted patient was transferred. Patient seen and examined. She complained of weakness in her RUE O/E: alert, oriented x 3 HEENT: atraumatic, PERRLA, EOMI, normochepalic Lungs: clear to auscultation CVS: normal S1 and S2, no murmurs Abdomen: soft, nontender, no organomegaly Extremities: no clubbing or cynaosis Neuro: has increased tingling and loss of sensation in right finger tips of all fingers. Limited range of motion of right arm, with patient only able to abduct and elevate arm with difficulty Assessment and Plan 1. BPPV: vertigo improved significantly. Counseled to follow up with ENT surgeon on discharge. 2. Severe cervical spine stenosis: CT reading as above. Patient transferred to [facility] as per Shavon DOWNS's note. [] This note was generated with [employer] dictation software. It may contain incorrect words, spelling, and punctuation that were not noted in checking the note before signing. Code Visit Inpatient E AND M: [id number] Disch Hosp 03/19/18 1405 <Electronically signed by Shavon Bradley NP-C> Date Shavon HOLLANDC 03/19/18 2438<Electronically signed by Claudia Cruz MD> Cosigner Signature (if applicable): Date Claudia Cruz MD CC: HIMANSHU Bradley; HIMANSHU Chapa; Claudia Cruz MD Signed BEDSIDE GLUCOSE Collected: 03/19/2018 Status: F Source: INGE 11:20 AM [facility] REPOSITORY TYPE CODE TESTS RESULT OUT OF REFERENCE UNITS RANGE LAB L501.080 70-110 mg/dL High BEDSIDE GLU 170 Result Comment: MANAGEMENT OF PATIENT CARE PER NURSING PROTOCOL Performed By: #### L501.080 #### [facility] Point of Care [address] [place] [address] SPINE CERVICAL Observed: 03/19/2018 Status: F Source: INGE WITHOUT CONTRAS 9:28 AM [facility] REPOSITORY [facility] Imaging Services [address] [place] [id number] Spine Cervical without Contras MR#: [id number] Acct: [id number] Name: NO NOBLE Rep #: [id number] : 1940 F 78 From: Alfonso Pozo MD PCP: HIMANSHU Gill Status: ADM IN Study: Spine Cervical without Contras Date of Exam: 03/19/18 Exam# [id number] Ordering Dr: Shavon Bradley STUDY: CT CERVICAL SPINE WITHOUT CONTRAST REASON FOR EXAM: Female, 78 years old. Neck pain and right upper arm pain RADIATION DOSAGE (If Supplied By Facility): CTDIvol = ( 26.56 ) mGy, DLP = ( 499.02 ) mGycm TECHNIQUE: High resolution transaxial imaging was performed without contrast material. Sagittal and coronal images were reconstructed. Individualized dose optimization techniques were used for this CT. COMPARISON: None FINDINGS: Normal craniovertebral junction. Degenerative changes are present involving the atlantoaxial axial articulation. Normal odontoid process. Normal cervical lordosis. Normal vertebral bodies and posterior osseous elements. Diffuse degenerative disease is present. Severe central canal stenosis at C4-5. Severe bilateral foraminal stenoses at C4-5 and C5- 6. No acute fractures or dislocations are seen. Carotid calcifications. Enlarged and heterogeneous thyroid gland may be related to goiter. 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 Severe bilateral foraminal stenoses at C4-5 and C5-6. No fractures or osteolytic lesions are seen. Electronically Signed: Alfonso Pozo MD at 10:47 EDT Tel , Service support , CC: HIMANSHU Bradley; HIMANSHU Chapa Dry Boss: Signed BEDSIDE GLUCOSE Collected: 03/19/2018 Status: F Source: INGE 7:30 AM [facility] REPOSITORY TYPE CODE TESTS RESULT OUT OF REFERENCE UNITS RANGE LAB L501.080 70-110 mg/dL High BEDSIDE GLU 115 Result Comment: MANAGEMENT OF PATIENT CARE PER NURSING PROTOCOL Performed By: #### L501.080 #### [facility] Point of Care [address] [place], [place] [id number] CBC W/DIFF, AUTOMATED Collected: 03/19/2018 Status: F Source: INGE 6:25 AM [facility] REPOSITORY TYPE CODE TESTS RESULT OUT OF RANGE REFERENCE UNITS LAB L100.1000 4.4-11.0 K/mm3 Normal WBC 7.3 LAB L100.1200 4.2-5.4 M/mm3 Low RBC 3.68 LAB L100.1300 12.0-15.0 g/dl Low HGB 10.7 LAB L100.1400 37-47 % Low HCT 34.3 LAB L100.1500 81-99 fL Normal MCV 93.2 LAB L100.1600 27.0-32.0 pg Normal MCH 29.1 LAB L100.1700 32-36 g/gl Low MCHC 31.2 LAB L100.1810 11.6-14.6 % Normal RDW CV 14.0 LAB L100.1820 35.1-43.9 fl High RDW SD 47.4 LAB L100.1900 150-450 K/mm3 Normal PLT 234 LAB L100.2000 6.2-12.0 fl Normal MPV 11.0 LAB L100.2100 47-70 % Low NEUT% 46.7 LAB L100.2200 19-41 % High LY% 41.3 LAB L100.2300 0-10 % Normal MONO% 6.9 LAB L100.2400 0-5 % Normal EO% 4.4 LAB L100.2500 0-1 % Normal BASO% 0.7 LAB L100.2550 0.0-0.9 % Normal IM GRAN % 0.000 Result Comment: IG% - Immature Granulocytes (promyelocytes, myelocytes and metamyelocytes) > 1% indicates that a LEFT SHIFT is Present. LAB L100.2620 2.0-7.7 X10 3/uL Normal Absolute Neut 3.4 LAB L100.2720 0.83-4.51 X10 3/ul Normal Absolute Lymph 3.00 Performed By: #### L100.0100 #### [facility] [address] [place], [address] BASIC METABOLIC Collected: 03/19/2018 Status: F Source: CORNING PROFILE (BMP) 6:25 AM [facility] REPOSITORY TYPE CODE TESTS RESULT OUT OF RANGE REFERENCE UNITS LAB L501.0100 74-106 mg/dL High GLU 107 Result Comment: Fasting Glucose result from 100 to 125 mg/dL suggests IMPAIRED HOMEOSTASIS per A.D.A. criteria. Please note revised GLUCOSE reference range effective 2017. LAB L501.1000 7-18 mg/dL High BUN 25 LAB L501.1100 0.55-1.02 mg/dL High CREAT,SERUM 1.46 Result Comment: The validity of the calculated GFR AND GFRAA in patients over 70 years has not been determined. Clinical correlation is essential. LAB L501.1110 >60 mL/min Low EST GFR 37 Result Comment: Non- GFR Calc LAB L501.1115 >60 mL/min Low EST GFR - AA 45 Result Comment: GFR Calc LAB L501.1255 ml/min Normal Estimated CRCL 27.87 LAB L501.1300 10-20 RATIO Normal BUN/CRE 17.1 LAB L501.2200 8.5-10 mg/dL Low .1 CA 8.3 LAB L501.5300 136-14 mmol/L Normal 5 NA 138 LAB L501.5600 3.5-5. mmol/L Normal 1 K 4.2 LAB L501.5900 98-107 mmol/L Normal CL 104 LAB L501.6100 21.0-3 mmol/L Normal 2.0 CO2 25.0 LAB L501.6200 5-15 Normal GAP 9 Performed By: #### L500.2500 #### [facility] [address] [place], [place], [address] BEDSIDE GLUCOSE Collected: 03/18/2018 Status: F Source: INGE 9:33 PM [facility] REPOSITORY TYPE CODE TESTS RESULT OUT OF REFERENCE UNITS RANGE LAB L501.080 70-110 mg/dL High BEDSIDE GLU 171 Result Comment: MANAGEMENT OF PATIENT CARE PER NURSING PROTOCOL Performed By: #### L501.080 #### [facility] Point of Care [address] [place] [address] BEDSIDE GLUCOSE Collected: 03/18/2018 Status: F Source: INGE 4:48 PM [facility] REPOSITORY TYPE CODE TESTS RESULT OUT OF REFERENCE UNITS RANGE LAB L501.080 70-110 mg/dL High BEDSIDE GLU 172 Result Comment: MANAGEMENT OF PATIENT CARE PER NURSING PROTOCOL Performed By: #### L501.080 #### [facility] Point of Care [address] [place] [address] BEDSIDE GLUCOSE Collected: 03/18/2018 Status: F Source: INGE 11:26 AM [facility] REPOSITORY TYPE CODE TESTS RESULT OUT OF REFERENCE UNITS RANGE LAB L501.080 70-110 mg/dL High BEDSIDE GLU 199 Result Comment: MANAGEMENT OF PATIENT CARE PER NURSING PROTOCOL Performed By: #### L501.080 #### [facility] Point of Care [address] [place] [address] BEDSIDE GLUCOSE Collected: 03/18/2018 Status: F Source: INGE 6:52 AM [facility] REPOSITORY TYPE CODE TESTS RESULT OUT OF REFERENCE UNITS RANGE LAB L501.080 70-110 mg/dL High BEDSIDE GLU 146 Result Comment: MANAGEMENT OF PATIENT CARE PER NURSING PROTOCOL Performed By: #### L501.080 #### [facility] Point of Care [address] [place] [address] CBC W/DIFF, AUTOMATED Collected: 03/18/2018 Status: F Source: INGE 5:50 AM [facility] REPOSITORY TYPE CODE TESTS RESULT OUT OF RANGE REFERENCE UNITS LAB L100.1000 4.4-11.0 K/mm3 Normal WBC 6.2 LAB L100.1200 4.2-5.4 M/mm3 Low RBC 3.68 LAB L100.1300 12.0-15.0 g/dl Low HGB 11.1 LAB L100.1400 37-47 % Low HCT 35.1 LAB L100.1500 81-99 fL Normal MCV 95.4 LAB L100.1600 27.0-32.0 pg Normal MCH 30.2 LAB L100.1700 32-36 g/gl Low MCHC 31.6 LAB L100.1810 11.6-14.6 % Normal RDW CV 13.9 LAB L100.1820 35.1-43.9 fl High RDW SD 46.3 LAB L100.1900 150-450 K/mm3 Normal PLT 241 LAB L100.2000 6.2-12.0 fl Normal MPV 11.0 LAB L100.2100 47-70 % Normal NEUT% 49.3 LAB L100.2200 19-41 % Normal LY% 38.9 LAB L100.2300 0-10 % Normal MONO% 6.0 LAB L100.2400 0-5 % Normal EO% 5.0 LAB L100.2500 0-1 % Normal BASO% 0.6 LAB L100.2550 0.0-0.9 % Normal IM GRAN % 0.200 Result Comment: IG% - Immature Granulocytes (promyelocytes, myelocytes and metamyelocytes) > 1% indicates that a LEFT SHIFT is Present. LAB L100.2620 2.0-7.7 X10 3/uL Normal Absolute Neut 3.1 LAB L100.2720 0.83-4.51 X10 3/ul Normal Absolute Lymph 2.41 Performed By: #### L100.0100 #### [facility] [address] [facility]. [place], [place], [address] BASIC METABOLIC Collected: 03/18/2018 Status: F Source: [place] PROFILE ([facility]) 5:50 AM [facility] REPOSITORY TYPE CODE TESTS RESULT OUT OF RANGE REFERENCE UNITS LAB L501.0100 74-106 mg/dL High GLU 144 Result Comment: Fasting Glucose result greater than or equal to 126 mg/dL suggests DIABETES MELLITUS per A.D.A. criteria. Please note revised GLUCOSE reference range effective 2017. LAB L501.1000 7-18 mg/dL High BUN 20 LAB L501.1100 0.55-1.02 mg/dL High CREAT,SERUM 1.28 Result Comment: The validity of the calculated GFR AND GFRAA in patients over 70 years has not been determined. Clinical correlation is essential. LAB L501.1110 >60 mL/min Low EST GFR 43 Result Comment: Non- GFR Calc LAB L501.1115 >60 mL/min Low EST GFR - AA 52 Result Comment: GFR Calc LAB L501.1255 ml/min Normal Estimated CRCL 31.78 LAB L501.1300 10-20 RATIO Normal BUN/CRE 15.6 LAB L501.2200 8.5-10 mg/dL Low .1 CA 8.4 LAB L501.5300 136-14 mmol/L Normal 5 NA 138 LAB L501.5600 3.5-5. mmol/L Normal 1 K 4.5 LAB L501.5900 98-107 mmol/L Normal CL 106 LAB L501.6100 21.0-3 mmol/L Normal 2.0 CO2 25.0 LAB L501.6200 5-15 Normal GAP 7 Performed By: #### L500.2500 #### [facility] [address] [facility] [place], [address] BEDSIDE GLUCOSE Collected: 03/17/2018 Status: F Source: CORNING 9:34 PM [facility] REPOSITORY TYPE CODE TESTS RESULT OUT OF REFERENCE UNITS RANGE LAB L501.080 70-110 mg/dL High BEDSIDE GLU 152 Result Comment: MANAGEMENT OF PATIENT CARE PER NURSING PROTOCOL Performed By: #### L501.080 #### [facility] Point of Care [address] [place] [address] EMERGENCY DEPARTMENT Observed: 03/17/2018 Status: F Source: CORNING SUMMARY 5:24 PM [facility] REPOSITORY [facility] Medical Records Department [address] [facility] [place] [address] Emergency Department Summary 03/17/18902 MR#: [id number] Acct: [id number] Name: NO NOBLE Rep #: [id number] : 1940 78 From: Justus Gutierrez MD PCP: Latia Andrzej Huron, PNP-C Status: ADM DEISY History of Present Illness Chief Complaint: Dizziness Informant: Patient Onset: Today Context: Gradual Onset Timing: Continuous Quality: spinning Location: head Current Severity: Moderate Maximum Severity: Severe Worsened by: position changes but not by turning head Relieved by: remaining still Associated Symptoms: n/v Narrative: Patient got up out of bed this morning acutely dizzy/vertiginous. In further discussion, she states that this started at midnight but much more mild and she had mild vertigo throughout the night although she was able to sleep. This was about 9 hours prior to arrival, time of onset. She also is having pain in her right hip when she moves both of her legs, she did not fall or injury. For the past several months she has been having carpal tunnel syndrome in her right hand, for the past week or more she has had soreness in her right shoulder, feels like the pain is moving up, this is all worse with movement. She denies any injury of the shoulder or other injury. She denies a headache, recent URI, tinnitus, earache, other ear symptoms. No diplopia or vision changes. No other facial or extremity numbness/weakness other than the pre-existing symptoms in her right upper extremity. - Past Medical History (1) HTN (hypertension) Status: Chronic (2) CAD (coronary artery disease) Status: Chronic (3) Hx of CABG Status: Chronic (4) Carpal tunnel syndrome on right Status: Chronic Past Medical History - Allergies and Home Meds Allergies/Adverse Reactions: Allergies acetaminophen Allergy (Verified 03/17/18 07:43) Vomiting Primary Care Physician: Latia Chapa, PNP-C [Primary Care Provider] - Lives: Alone Smoking Status: Never smoker Review of Systems All systems negative except as indicated General: Reports: Malaise Eyes: Denies: Visual changes - bilaterally, Diplopia ENT: Denies: Bilateral ear pain, Sore throat Cardiovascular: Reports: Chest pain - heaviness, off and on chronically, daily; only there a little right now. tends to be worse w/ exertion. Respiratory: Denies: Dyspnea, Cough Gastrointestinal: Reports: Nausea, Vomiting. Denies: Abdominal pain, Diarrhea Genitourinary: Denies: Dysuria, Hematuria Musculoskeletal: Reports: Extremity Pain - right arm. right wrist. right hip off and on, all worse w/ movement.. Denies: Myalgias, Arthralgias, Neck pain, Back pain Skin: Denies: Rash Neurological: Reports: Parasthesia, Numbness. Denies: Headache, Weakness Physical Exam Vital Signs/Narrative: Vital Signs 03/17/18 07:44 97.5 F L 67 18 162/59 H 95 Inital Vital Signs reviewed: Yes General: Well nourished, Well developed, Obese Head: Normocephalic, Atraumatic Eyes: Perrl, EOMI - w/o nystagmus ENT: Moist mucous membranes, No rhinorrhea, TM's clear. Negative for: Sinus tenderness Neck: Supple, Nontender, No JVD Cardiovascular: Regular rate, Regular rhythm, No murmurs Respiratory: No distress, CTA bilaterally, Chest nontender Abdomen: Soft, Nontender, Nondistended, Normal bowel sounds Back: Nontender, Normal Inspection. Negative for: CVA tenderness, Spinal tenderness Extremities: Nontender, Edema - 1+ bLE, - - positive tinels right medial tunnel. positive phalen. Skin: Normal color, No rash Neurological: Alert, Oriented x3, Cranial nerves II-XII grossly intact, Parasthesia - all right fingers including 5th, worst in thumb., Weakness - BLE - pt states due to pain in right hip w/ lifting Psychological: Normal affect Diagnostic/Tx/Re-eval Impressions Brain CT 03/17/18 09:01 IMPRESSION: Chronic involutional changes of the brain. Electronically Signed: Jens Thurman MD at 10:22 EDT Tel [phone], Service support , Chest X-Ray 03/17/18 09:01 IMPRESSION: Findings in keeping with vascular congestion and mild degree of CHF. Electronically Signed: Jens Thurman MD at 10:19 EDT Tel [phone], Service support , 03/17/18 09:01 Brain/Head without Contrast [CT] Stat Chest 1 View (Portable) [RAD] Stat Laboratory Results WBC 7.0 (4.4-11.0) K/mm3 - Rhythm Strip Rhythm Strip: Sinus Rhythm Rate: 60 Ectopy: None - EKG 1 Interpretation: Sinus Rhythm, No Acute Injury Pattern, LBBB Prior: Unchanged - Medical Decision Making Other than chronic renal insufficiency, chronic involutional changes of the brain, and chest x-ray consistent with venous congestion although she has had no dyspnea or orthopnea, her workup is unremarkable. Her EKG shows a left bundle branch block which is unchanged compared with her prior. Her symptoms are mostly consistent with peripheral vertigo. She is hypertensive, that could be related to her feeling uncomfortable, not having her blood pressure medications this morning yet, or it could be related to vertigo if it was central. Her symptoms do get worse with position changes, although she has no horizontal nystagmus and turning her head does not change anything. She was given Valium and a half dose of Phenergan, she is somnolent but easily arousable and her symptoms are improved, however with attempting to walk her, she got to the side of the bed and was miserably vertiginous. Will admit. ED Disposition - Plan for ED Patient: Disposition: Acute Care Hospital [facility] Chief Complaint: Upper Extremity Injury Diagnosis: Vertigo, peripheral, Carpal tunnel syndrome on right, Chest pain, unspecified What to do if you have Problems For any increased pain, shortness of breath, bleeding, nausea or vomiting, chest pain, or any unexpected problems, contact your Primary Care Provider. Call [facility] ([phone]) or report to the closest Emergency Room. Call 911 if necessary. 03/17/18 4841 <Electronically signed by Justus Gutierrez MD> Date Justus Gutierrez MD Cosigner Signature (If Indicated): Date CC: HIMANSHU Chapa TROPONIN-I Collected: 03/17/2018 Status: F Source: INGE 5:23 PM [facility] REPOSITORY Order Comment: 'TROP' Serial specimen #1, #2 or #3: 2 TYPE CODE TESTS RESULT OUT OF RANGE REFERENCE UNITS LAB L501.4010 <0.045 ng/mL Normal < 0.015 TROPONIN-I Result Comment: TROPONIN-I EXPECTED VALUES <0.045 Negative 0.045 - 0.590 Consistent with Cardiac Damage > OR = 0.600 Critical Value Not every elevated troponin is indicative of [place]. These values should be used with clinical judgement in examining the patient's clinical picture for diagnosis. To establish a diagnosis of [place] versus myocardial injury, there must be a demonstrated rise and/or fall in the troponin values, in addition to ischemic symptoms, EKG changes, new regional wall motion abnormality, and/or angiographical evidence. PLEASE NOTE: REFERENCE RANGES EDITED 18 Performed By: #### L501.4010 #### [facility] [address] [facility] [place], [address] HISTORY AND PHYSICAL Observed: 03/17/2018 Status: F Source: CORNING EXAM 4:43 PM [facility] REPOSITORY [facility] Medical Records Department [address] [facility] [address] History and Physical 03/17/18 1224 MR#: [id number] Acct: [id number] Name: NO NOBLE Rep #: [id number] : 1940 78 From: Claudia Cruz MD PCP: HIMANSHU Gill Status: ADM DEISY Y Location: [place] [address] Problem List (1) Vertigo, peripheral Status: Acute (2) Chest pain, unspecified Status: Acute History of Present Illness Date of Admission: 03/17/18 Chief Complaint: vertigo The patient is a 78 year old F with past medical history of coronary artery disease status post CABG, hypertension, hyperlipidemia, diabetes, carpal tunnel syndrome of the right arm and memory loss. She was admitted via the ED on 03/17/2018 with a complaint of acute onset of vertigo. She states symptoms actually started around midnight but it was mild and woke her up this morning. It was very severe when she woke up this morning and was worsened by her moving her head. She felt like everything was spinning around her. She denied any recent history of upper respiratory symptoms or exposure to an upper respiratory infection. She denied any ear pain, any tinnitus, any hearing loss, any headache, any focal weakness or drooping of her mouth. She has never had such dizziness before in her life. She denied any abnormal movements of her eyelids. She also complained of increased pain along her right upper arm which has been present but had severely worsened and seemed like it was increased painful sensation. She had previously had surgery for right carpal tunnel syndrome in November and she states that with the pain stem from. Persistent nausea and vomiting but denied any diarrhea. Review of systems otherwise negative. In the ED, vitals showed temperature of 97.5 with pulse of 67 and respiratory rate of 18 as well as blood pressure 160/59. CT of the head done showed no acute changes. EKG showed left axis deviation with left bundle branch block. She has been admitted to be worked up for acute for [employer]. [] Past Medical History Past Medical History (Chronic Problems): Chronic Problems HTN (hypertension) (Chronic) CAD (coronary artery disease) (Chronic) Hx of CABG (Chronic) Carpal tunnel syndrome on right (Chronic) Allergies acetaminophen Allergy (Verified 03/17/18 07:43) Vomiting Home Medications: Ambulatory Orders Medication Instructions Recorded Aspirin E.C. 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 Denies: Chills, Fever, Weight Change Eyes: Denies: Blurred vision, Double vision, Vision Change HEENT: Denies: Difficulty Hearing, Ear Pain, Hard of Hearing, Nasal Congestion, Sore Throat, Visual Changes Cardiovascular: Reports: Chest Pain - Retrosternal burning chest pain with no aggravating or relieving factors.. Denies: Chest Pressure, Chest Tightness, Orthopnea, Palpitations, Paroxysmal Noc. Dyspnea, Syncope Respiratory: Denies: Cough, Shortness of breath at rest, Sputum production Gastrointestinal: Reports: Nausea, Vomiting. Denies: Abdominal Pain Genitourinary: Denies: Dysuria Musculoskeletal: Reports: Arm Pain - Right upper extremity pain which she describes as a painful sensation over the upper aspect of the right arm which has increased acutely since this morning. Chronic pain from carpal tunnel and right upper extremity Skin: Denies: Rash, Wounds Neurological: Reports: Numbness, Tingling. Denies: Balance problems, Blurred vision, Double vision, Change in Speech, Slurred speech, Confusion, Headaches, Incoordination, Tremor, Seizures Psychiatric: Denies: Anxiety, Depression, Homicidal Ideations, Suicidal Ideations VTE Information - Inpt Only VTE Present on Admission: No VTE Mechan Device Prophylaxis: SCD's VTE Pharm Prophylaxis ordered?: Yes Patient Problems: Active and Suspected Problems Vertigo, peripheral (Acute) Chest pain, unspecified (Acute) - Physical Exam General: Alert, Oriented x3, Cooperative, - - Moderate distress from dizziness HEENT: Atraumatic, PERRLA, EOMI, Normocephalic Oral: Moist Mucosa Neck: Supple, No JVD, No Nodes Lungs: Clear to auscultation, Normal air movement, No rhonchi, No wheeze Cardiovascular: Regular rate, Regular Rhythm, Normal S1, Normal S2, No murmurs, - - Mild carotid bruit present bilaterally Abdomen: Bowel Sounds Present, Soft, Non Tender, Non-Distended, No Hepato-splenomegaly Extremities: Capillary Refill Less than 3 Seconds, - - Mild +2 pitting edema bilaterally Skin: No rashes, No breakdown, - Musculoskeletal: No Tenderness to Palpation of Joints or Extremities Lymphatic: No Cervical, Supraclavicular, or Inguinal Adenopathy Neurological: Cranial nerves II-XII grossly intact, Motor Exam 5/5 strength throughout, - - Has hyperesthesia of right upper extremity. Reflexes depressed in all upper extremities 1+. Pronator drift negative. Cerebellar exam WNL. Gait not assessed. Unable to do [place] Hallpike testing as patient got uncomfortable even with sitting up. No nystagmus seen. Psych/Mental Status: Anxious Vital Signs Temp Pulse Resp BP Pulse Ox 97.5 F L 53 L 14 142/53 H 88 03/17/18 07:44 03/17/18 11:35 03/17/18 11:35 03/17/18 11:35 03/17/18 11:35 Assessment/Plan All Active Problems Vertigo, peripheral (Acute) Chest pain, unspecified (Acute) Impressions Brain CT 03/17/18 09:01 IMPRESSION: Chronic involutional changes of the brain. Electronically Signed: Jens Thurman MD at 10:22 EDT Tel [phone], Service support , Chest X-Ray 03/17/18 09:01 IMPRESSION: Findings in keeping with vascular congestion and mild degree of CHF. Electronically Signed: Jens Thurman MD at 10:19 EDT Tel [phone], Service support , 03/17/18 09:01 Brain/Head without Contrast [CT] Stat Chest 1 View (Portable) [RAD] Stat 03/17/18 12:20 MRI Brain [Brain without Contrast] [MRI] Urgent Laboratory Results WBC 7.0 (4.4-11.0) K/mm3 78-year-old female with a history of coronary artery disease status post CABG, hypertension, diabetes presented with acute onset of vertigo this morning. 1. Vertigo * Onset of vertigo. Aggravated by moving around. No history of vertigo previously * Ear examination only positive for dizziness and hyperesthesia of right upper extremity. Reflexes mildly decreased in all extremities. No acute focal neurological impairment on examination. * NIH stroke scale- * Will admit to PCU with telemetry. * EKG showed left axis deviation with left bundle branch block. * X-ray was suggestive of congestive heart failure * Will check BNP. Labs were otherwise noncontributory. * Initial troponin was less than 0.015. * CT of the head showed only involutional changes associated with aging and no acute findings * In light of patient's acute onset of vertigo no history of it and extensive cardiac history, I am concerned about a vertebrobasilar stroke. * Will get MRI of the brain without contrast to assess for vertebrobasilar stroke and rule it out. * On aspirin, statin. Will continue. * Fall precautions. * 2. Atypical chest pain, will want to rule out ACS * Please of the burning retrosternal chest pain which is episodic. * EKG as documented above * initial troponin negative; will cycle and monitor * 3. Diabetes mellitus: accuchecks ACHS. Continue home insulin dose 4, Hypertension: controlled. WIll continue home meds 5. Right carpal tunnel syndrome s/p surgery: still complains of pain in RUE. WIll get xray of RUE and monitor. Tyelenol for pain 6. DVT prophylaxis: heparin 8. Code Visit OBSV E AND M: [id number] Initial observation care L2 03/17/18 1643 <Electronically signed by Claudia Cruz MD> Date Claudia Cruz MD Cosigner Signature: Date (if applicable) CC: PNP-C Latia Chapa; Claudia Cruz MD Signed BEDSIDE GLUCOSE Collected: 03/17/2018 Status: F Source: [place] 4:21 PM [facility] REPOSITORY TYPE CODE TESTS RESULT OUT OF REFERENCE UNITS RANGE LAB L501.080 70-110 mg/dL High BEDSIDE GLU 126 Result Comment: MANAGEMENT OF PATIENT CARE PER NURSING PROTOCOL Performed By: #### L501.080 #### [facility] Point of Care [address] [place], [place] [address] [address] WRIST 2 VIEWS Observed: 03/17/2018 Status: F Source: [place] 3:36 PM [facility] REPOSITORY [facility] Imaging Services [address] [place], [place] [address] [address] Wrist 2 Views MR#: [id number] Acct: [id number] Name: NO NOBLE Rep #: [id number] : 1940 F 78 From: Kp Adame MD PCP: SKYLER GillC Status: ADM DEISY Study: Wrist 2 Views Date of Exam: 03/17/18 Exam# [id number] Ordering Dr: Claudia Cruz MD STUDY: X-RAY - RIGHT WRIST REASON FOR EXAM: Female, 78 years old. Pain TECHNIQUE: 2 view(s) of the wrist were obtained. COMPARISON: None. FINDINGS: Normal visualized distal radius and ulna. Normal radiocarpal articulation. Normal distal radioulnar articulation. Normal carpal bones. Normal carpal articulations. Normal carpometacarpal articulation of the thumb. Normal second through fifth carpometacarpal articulations. Normal visualized metacarpal bones. Mild calcification of the triangular fibrocartilage.. RAD/Wrist 2 Views IMPRESSION: Mild arthritic changes. No evidence for acute fracture Electronically Signed: Kp Adame MD at 19:40 EDT , Service support , CC: HIMANSHU Chapa; Claudia Cruz MD Dry Boss: Signed SHOULDER MIN 2 VIEWS Observed: 03/17/2018 Status: F Source: [place] 3:36 PM [facility] REPOSITORY [facility] Imaging Services [address] [place] [address] Shoulder min 2 Views MR#: [id number] Acct: [id number] Name: NO NOBLE Rep #: [id number] : 1940 F 78 From: Kp Adame MD PCP: HIMANSHU Gill Status: ADM DEISY Study: Shoulder min 2 Views Date of Exam: 03/17/18 Exam# [id number] Ordering Dr: Claudia Cruz MD STUDY: X-RAY - RIGHT SHOULDER REASON FOR EXAM: Female, 78 years old. Pain TECHNIQUE: 2 view(s) of the shoulder. COMPARISON: None. FINDINGS: Narrowed glenohumeral articulation. Normal acromioclavicular joint. Normal acromion. Normal humeral head and visualized proximal humerus. The soft tissue structures are unremarkable. Normal visualized pulmonary apex. RAD/Shoulder min 2 Views IMPRESSION: Degenerative changes. No evidence for acute fracture Electronically Signed: Kp Adame MD at 19:40 EDT , Service support , CC: HIMANSHU Chapa; Claudia Cruz MD Dry Boss: Signed ELBOW 2 VIEWS Observed: 03/17/2018 Status: F Source: [place] 3:36 PM [facility] REPOSITORY [facility] Imaging Services [address] [place] [address] Elbow 2 Views MR#: [id number] Acct: [id number] Name: NO NOBLE Rep #: [id number] : 1940 F 78 From: Kp Adame MD PCP: HIMANSHU Gill Status: ADM DEISY Study: Elbow 2 Views Date of Exam: 03/17/18 Exam# [id number] Ordering Dr: Claudia Cruz MD STUDY: X-RAY - RIGHT ELBOW REASON FOR EXAM: Female, 78 years old. Pain TECHNIQUE: 2 view(s) of the elbow. COMPARISON: None. FINDINGS: Normal visualized humerus, radius and ulna. Normal radiocapitellar and ulnotrochlear articulations. The soft tissue structures are unremarkable. RAD/Elbow 2 Views IMPRESSION: Normal x-ray examination of the elbow. Electronically Signed: Kp Adame MD at 19:41 EDT , Service support , CC: HIMANSHU Chapa; Claudia Cruz MD Dry Boss: Signed BEDSIDE GLUCOSE Collected: 03/17/2018 Status: F Source: INGE 1:04 PM [facility] REPOSITORY TYPE CODE TESTS RESULT OUT OF REFERENCE UNITS RANGE LAB L501.080 70-110 mg/dL High BEDSIDE GLU 159 Result Comment: MANAGEMENT OF PATIENT CARE PER NURSING PROTOCOL Performed By: #### L501.080 #### [facility] Point of Care [address] [place] [address] BRAIN WITHOUT Observed: 03/17/2018 Status: F Source: INGE CONTRAST 12:21 PM [facility] REPOSITORY [facility] Imaging Services [address] [place] [address] Brain without Contrast MR#: [id number] Acct: [id number] Name: NO NOBLE Rep #: [id number] : 1940 F 78 From: Kp Adame MD PCP: Latia Chapa, PNP-C Status: ADM DEISY Study: Brain without Contrast Date of Exam: 03/17/18 Exam# [id number] Ordering Dr: Claudia Cruz MD STUDY: MRI BRAIN WITHOUT CONTRAST REASON FOR EXAM: Female, 78 years old. Vertigo TECHNIQUE: Standardized multiplanar fat and water weighted pulse sequences were obtained. COMPARISON: CT of the brain on March 17, 2018 FINDINGS: Mild atrophy and periventricular white matter ischemic changes without mass effect or restricted diffusion.. Normal bilateral basal ganglia. Normal thalami. There is no extra-axial fluid accumulation. Normal flow voids within the major intracranial circulation suggesting patency by spin echo criteria. Empty sella deformity of uncertain clinical significance. Normal, infundibular stalk, optic chiasm and hypothalamus. Normal tectal plate and pineal gland. Normal midbrain, yovana and medulla. Normal cerebellum. Normal basal cisterns. Normal bilateral temporal bones. Normal bilateral internal auditory canals. Increased signal intensity within the right mastoid air cells which may be due to inflammatory changes No demonstrated orbital abnormality, within the constraints of a routine brain study. Normal visualized paranasal sinuses. Normal calvarium and skull base. Normal visualized soft tissue structures. Normal visualized upper cervical spine. MRI/Brain without Contrast IMPRESSION: Minor atrophy and periventricular white matter ischemic changes without evidence for acute infarct. Electronically Signed: Kp Adame MD at 16:28 EDT , Service support , CC: HIMANSHU Chapa; Claudia Cruz MD Dry Boss: Signed URINALYSIS, COMPLETE Collected: 03/17/2018 Status: F Source: [place] 10:05 AM [facility] REPOSITORY Order Comment: How was Urine Obtained? GIANT TIRE REPAIRER TO SPECIFY TYPE CODE TESTS RESULT OUT OF RANGE REFERENCE UNITS LAB L400.3000 Yellow COLOR Normal Yellow LAB L400.3050 Clear Normal CLARITY Cloudy LAB L400.3200 Normal mg/dl Normal GLUCOSE, UR Normal LAB L400.3300 Negative mg/dL Normal BILIRUBIN URINE Negative LAB L400.3400 Negative mg/dl Normal KETONE UR Negative LAB L400.3465 1.002-1.030 Normal SP.GR. DIPSTX 1.010 LAB L400.3550 5.0 - 8.0 pH UR Normal 6.5 LAB L400.3600 Negative mg/dl High PROT 30 DIPSTX LAB L400.3700 Normal mg/dl Normal UROBILI Normal LAB L400.3750 Negative High NITRITE UR Positive LAB L400.3780 Negative /ul High 25 OCCULT BLOOD-UR LAB L400.3800 Negative /ul High LEUK ESTERASE 100 LAB L400.4050 0-5 /hpf WBC Normal 0-5 SEEN LAB L400.4100 0-5 /hpf 0 Normal RBC-UA SEEN LAB L400.4150 5-10 /hpf SQUAM Normal EPI 0-5 SEEN LAB L400.4300 None Seen /hpf 3+ Normal BACTERIA LAB L400.4350 <or=2+ /hpf 0 Normal MUCUS, URINE SEEN Performed By: #### L400.0001 #### [facility] [address] [place], [address] BASIC METABOLIC Collected: 03/17/2018 Status: F Source: INGE PROFILE (BMP) 9:10 AM [facility] REPOSITORY TYPE CODE TESTS RESULT OUT OF RANGE REFERENCE UNITS LAB L501.0100 74-106 mg/dL High GLU 160 Result Comment: Fasting Glucose result greater than or equal to 126 mg/dL suggests DIABETES MELLITUS per A.D.A. criteria. Please note revised GLUCOSE reference range effective 2017. LAB L501.1000 7-18 mg/dL High BUN 21 LAB L501.1100 0.55-1.02 mg/dL High CREAT,SERUM 1.38 Result Comment: The validity of the calculated GFR AND GFRAA in patients over 70 years has not been determined. Clinical correlation is essential. LAB L501.1110 >60 mL/min Low EST GFR 39 Result Comment: Non- GFR Calc LAB L501.1115 >60 mL/min Low EST GFR - AA 48 Result Comment: GFR Calc LAB L501.1255 ml/min Normal Estimated CRCL 29.48 LAB L501.1300 10-20 RATIO Normal BUN/CRE 15.2 LAB L501.2200 8.5-10 mg/dL Normal .1 CA 8.8 LAB L501.5300 136-14 mmol/L Normal 5 NA 138 LAB L501.5600 3.5-5. mmol/L Normal 1 K 4.1 LAB L501.5900 98-107 mmol/L Normal CL 105 LAB L501.6100 21.0-3 mmol/L Normal 2.0 CO2 25.0 LAB L501.6200 5-15 Normal GAP 8 Performed By: #### L500.2500, L501.4010 #### [facility] [address] [place], [address] TROPONIN-I Collected: 03/17/2018 Status: F Source: INGE 9:10 AM [facility] REPOSITORY TYPE CODE TESTS RESULT OUT OF RANGE REFERENCE UNITS LAB L501.4010 <0.045 ng/mL Normal < 0.015 TROPONIN-I Result Comment: TROPONIN-I EXPECTED VALUES <0.045 Negative 0.045 - 0.590 Consistent with Cardiac Damage > OR = 0.600 Critical Value Not every elevated troponin is indicative of [place]. These values should be used with clinical judgement in examining the patient's clinical picture for diagnosis. To establish a diagnosis of [place] versus myocardial injury, there must be a demonstrated rise and/or fall in the troponin values, in addition to ischemic symptoms, EKG changes, new regional wall motion abnormality, and/or angiographical evidence. PLEASE NOTE: REFERENCE RANGES EDITED 18 Performed By: #### L500.2500, L501.4010 #### [facility] [place], [address] CBC W/DIFF, AUTOMATED Collected: 03/17/2018 Status: F Source: [place] 9:10 AM [facility] REPOSITORY TYPE CODE TESTS RESULT OUT OF RANGE REFERENCE UNITS LAB L100.1000 4.4-11.0 K/mm3 Normal WBC 7.0 LAB L100.1200 4.2-5.4 M/mm3 Low RBC 3.93 LAB L100.1300 12.0-15.0 g/dl Low HGB 11.9 LAB L100.1400 37-47 % Low HCT 36.3 LAB L100.1500 81-99 fL Normal MCV 92.4 LAB L100.1600 27.0-32.0 pg Normal MCH 30.3 LAB L100.1700 32-36 g/gl Normal MCHC 32.8 LAB L100.1810 11.6-14.6 % Normal RDW CV 13.5 LAB L100.1820 35.1-43.9 fl High RDW SD 44.5 LAB L100.1900 150-450 K/mm3 Normal PLT 243 LAB L100.2000 6.2-12.0 fl Normal MPV 10.8 LAB L100.2100 47-70 % High NEUT% 73.8 LAB L100.2200 19-41 % Low LY% 17.3 LAB L100.2300 0-10 % Normal MONO% 5.7 LAB L100.2400 0-5 % Normal EO% 2.3 LAB L100.2500 0-1 % Normal BASO% 0.6 LAB L100.2550 0.0-0.9 % Normal IM GRAN % 0.300 Result Comment: IG% - Immature Granulocytes (promyelocytes, myelocytes and metamyelocytes) > 1% indicates that a LEFT SHIFT is Present. LAB L100.2620 2.0-7.7 X10 3/uL Normal Absolute Neut 5.2 LAB L100.2720 0.83-4.51 X10 3/ul Normal Absolute Lymph 1.21 Performed By: #### L100.0100 #### [facility] [address] [place], [address] BNP,B-TYPE NATRIURETIC Collected: 03/17/2018 Status: F Source: INGE PEPTIDE 9:10 AM [facility] REPOSITORY Order Comment: ADD ON TO BLOOD IN LAB PLEASE TYPE CODE TESTS RESULT OUT OF RANGE REFERENCE UNITS LAB L503.6620 0-100 pg/mL High B-TYPE 149.0 FABIÁN PEP Performed By: #### L503.6620 #### [facility] [address] [place], [address] CHEST 1 VIEW Observed: 03/17/2018 Status: F Source: INGE (PORTABLE) 9:03 AM [facility] REPOSITORY [facility] Imaging Services [address] [facility] [place] [address] Chest 1 View (Portable) MR#: [id number] Acct: [id number] Name: NO NOBLE Rep #: [id number] : 1940 F 78 From: Jens Thurman MD PCP: SKYLER GillC Status: REG ER Study: Chest 1 View (Portable) Date of Exam: 03/17/18 Exam# [id number] Ordering Dr: Justus Gutierrez MD STUDY: X-RAY CHEST REASON FOR EXAM: Female, 78 years old. Chest pain. TECHNIQUE: Single AP portable view of the chest. COMPARISON: None. FINDINGS: EKG electrodes are seen. There is evidence of gastric congestion and a mild degree of CHF. There is no demonstrated pleural abnormality. Sternal cerclage wires and vascular clips are present from a prior sternotomy and coronary artery bypass graft procedure (CABG). Normal mediastinum and holli. Normal visualized pulmonary arteries. Normal visualized aortic arch and descending thoracic aorta. Normal visualized thoracic spine. Normal visualized ribs, clavicles, and shoulders. There is no demonstrated abnormality of the visualized soft tissue structures of the upper abdomen. RAD/Chest 1 View (Portable) IMPRESSION: Findings in keeping with vascular congestion and mild degree of CHF. Electronically Signed: Jens Thurman MD at 10:19 EDT Tel [phone], Service support , CC: HIMANSHU Chapa; JUSTUS GUTIERREZ MD Dry Boss: Signed BRAIN/HEAD WITHOUT Observed: 03/17/2018 Status: F Source: [place] CONTRAST 9:03 AM [facility] REPOSITORY [facility] Imaging Services [address] [employer] [address] Brain/Head without Contrast MR#: [id number] Acct: [id number] Name: NO NOBLE Rep #: [id number] : 1940 F 78 From: Jens Thurman MD PCP: HIMANSHU Gill Status: REG ER Study: Brain/Head without Contrast Date of Exam: 03/17/18 Exam# [id number] Ordering Dr: Justus Gutierrez MD STUDY: CT BRAIN WITHOUT CONTRAST REASON FOR EXAM: Female, 78 years old. Vertigo and hypertension. RADIATION DOSAGE (If Supplied By Facility): CTDIvol = ( 44.99 ) mGy, DLP = ( 728.62 ) mGycm TECHNIQUE: Transaxial CT imaging of the brain was performed without administration of intravenous contrast material. Individualized dose optimization techniques were used for this CT. COMPARISON: None. FINDINGS: Normal soft tissue structures. There is hyperostosis frontalis internus. There is mild cerebral atrophy with widening of the extra- axial spaces and ventricular dilatation. Normal white matter tracts of the cerebral hemispheres. Normal basal ganglia and thalami. Normal brainstem. Normal cerebellum. There is no intracranial hemorrhage. There are no findings of an acute ischemic infarction. Normal visualized paranasal sinuses. CT/Brain/Head without Contrast IMPRESSION: Chronic involutional changes of the brain. Electronically Signed: Jens Thurman MD at 10:22 EDT Tel [phone], Service support , CC: HIMANSHU Chapa; JUSTUS GUTIERREZ MD Dry Boss: Signed TSH Collected: 02/24/2018 Status: F Source: [place]Tomorrows 9:20 AM [facility] REPOSITORY TYPE CODE TESTS RESULT OUT OF RANGE REFERENCE UNITS LAB TSH(LOINC) 0.27-4.20 mcIU/mL TSH 1.70 Performed By: #### TSH #### [place] [address] US RENAL Observed: 02/03/2018 Status: F Source: [facility] 5:00 PM [facility] REPOSITORY ORIGINAL Complete retroperitoneal ultrasound for the kidneys HISTORY: Chronic kidney disease stage III COMPARISON: None Right kidney 9.7 cm length and left kidney 10.3 cm length. There is a 1 cm cyst at the mid right kidney. No solid renal mass is present and there is no collecting system dilatation. The left renal brice x is somewhat lobulated which may indicate regions of scarring from remote insult. No stone or perinephric fluid is evident. The bladder is unremarkable with no focal lesion. No free fluid, no other contributory finding. IMPRESSION: Small right renal cyst. No evidence for hydronephrosis on this exam. Interpreted By: Reynaldo Marinelli MD Preliminary Report By: Reynaldo Marinelli MD Electronically Signed By: Reynaldo Marinelli MD Dictated Date: 2018 8:54:55 AM Prelim Date: 2018 8:54:55 AM Sign Date: 2018 9:04:02 AM URINALYSIS, COMPLETE Collected: 02/01/2018 Status: F Source: INGE 2:03 PM [facility] REPOSITORY Order Comment: How was Urine Obtained? CLEAN CATCH TYPE CODE TESTS RESULT OUT OF RANGE REFERENCE UNITS LAB L400.3000 Yellow COLOR Normal Yellow LAB L400.3050 Clear Normal CLARITY Sl. Cloudy LAB L400.3200 Normal mg/dl High GLUCOSE, UR 1000 LAB L400.3300 Negative mg/dL Normal BILIRUBIN URINE Negative LAB L400.3400 Negative mg/dl Normal KETONE UR Negative LAB L400.3465 1.002-1.030 Normal SP.GR. DIPSTX 1.020 LAB L400.3550 5.0 - 8.0 pH UR Normal 5.0 LAB L400.3600 Negative mg/dl High PROT DIPSTX 100 LAB L400.3700 Normal mg/dl Normal UROBILI Normal LAB L400.3750 Negative High NITRITE UR Positive LAB L400.3780 Negative /ul High OCCULT BLOOD-UR 150 LAB L400.3800 Negative /ul High LEUK ESTERASE 500 LAB L400.4050 0-5 /hpf WBC Normal 10-25 SEEN LAB L400.4100 0-5 /hpf 0 Normal RBC-UA SEEN LAB L400.4150 5-10 /hpf SQUAM Normal EPI 0-5 SEEN LAB L400.4300 None Seen /hpf 2+ Normal BACTERIA LAB L400.4350 <or=2+ /hpf 0 Normal MUCUS, URINE SEEN Performed By: #### L400.0001 #### [facility] [address] [place], [place], [id number] RENAL PROFILE Collected: 02/01/2018 Status: F Source: [place] 2:03 PM [facility] REPOSITORY TYPE CODE TESTS RESULT OUT OF RANGE REFERENCE UNITS LAB L501.0100 74-106 mg/dL High GLU 318 Result Comment: Glucose result greater than or equal to 200 mg/dL suggests DIABETES MELLITUS per A.D.A. criteria. Please note revised GLUCOSE reference range effective 2017. LAB L501.1000 7-18 mg/dL High BUN 24 LAB L501.1100 0.55-1.02 mg/dL High CREAT,SERUM 1.48 Result Comment: The validity of the calculated GFR AND GFRAA in patients over 70 years has not been determined. Clinical correlation is essential. LAB L501.1110 >60 mL/min Low EST GFR 36 Result Comment: Non- GFR Calc LAB L501.1115 >60 mL/min Low EST GFR - AA 44 Result Comment: GFR Calc LAB L501.1300 10-20 RATIO Normal BUN/CRE 16.2 LAB L501.1800 3.2-5.0 g/dL Normal ALB 4.2 LAB L501.2200 8.5-10.1 mg/dL CA Normal 9.4 LAB L501.2300 2.5-4.9 mg/dL Normal PHOS 2.6 LAB L501.5300 136-145 mmol/L NA Normal 136 LAB L501.5600 3.5-5.1 mmol/L K Normal 4.2 LAB L501.5900 98-107 mmol/L CL Normal 102 LAB L501.6100 21.0-32.0 mmol/L Normal CO2 24.0 Performed By: #### L500.3600 #### [facility] [address] [facility]. [place], [place], [id number] PROTEIN+CREATININE Collected: Status: F Source: INGE RATIO,URINE 02/01/2018 2:03 PM [facility] REPOSITORY TYPE CODE TESTS RESULT OUT OF RANGE REFERENCE UNITS LAB L501.1200 NO RANGE EST. mg/dL Normal UR CREAT 108.00 LAB L501.1930 <11.9 mg/dL High 88.9 PROTEIN,UR.R AN. LAB L501.1940 0-200 mg/g CRE High PROT:CRE 823 RATIO Performed By: #### L501.0900 #### [facility] [address] [place], [place], [address] ANTINUCLEAR ANTIBODY, Collected: 02/01/2018 Status: F Source: [place] IFA 2:03 PM [facility] REPOSITORY TYPE CODE TESTS RESULT OUT OF RANGE REFERENCE UNITS LAB L3100.8000 . Normal ANTHONY Negative test Result Comment: Negative <1:80 Borderline 1:80 Positive >1:80 Speckled cytoplasmic fluorescence is present. The antibodies noted in this pattern may be associated with, but not restricted to, primary biliary cirrhosis (PBC), polymyositis and dermatomyositis (PM/DM), and/or systemic lupus erythematosus (SLE). Performed at: [facility] [id number] Restaurant Worker: Harjit Tim PhD, Phone: [phone] Performed By: #### L3100.7950 #### [facility] (refer to report for specific site) refer to report for address and phone number CBC Collected: 11/16/2017 Status: F Source: [facility] 10:40 AM [facility] REPOSITORY TYPE CODE TESTS RESULT OUT OF REFERENCE UNITS RANGE LAB WBC(LOINC) 4.60-10.80 10 3/mcL WBC 7.20 LAB RBCCT(LOINC 4.20-5.40 10 6/mcL ) Low RBC 4.04 LAB HGB(LOINC) 12.0-16.0 G/dL Hgb 12.0 LAB HCT(LOINC) 37.0-47.0 % Low Hct 36.7 LAB MCV(LOINC) 80.0-94.0 fL MCV 90.7 LAB MCH(LOINC) 27.0-31.2 pg MCH 29.6 LAB MCHC(LOINC) 33.0-37.0 G/dL Low MCHC 32.6 LAB RDW(LOINC) 11.5-14.5 % High RDW 14.7 LAB PLT(LOINC) 130-400 10 3/mcL Platelet 397 LAB MPV(LOINC) 7.4-10.4 fL High MPV 12.0 Performed By: #### CBC, ADIFF, ANEU, LIPID, CMP, GFR, FT4, TSH #### [address] [address] #### VIDH #### [address] [address] .AUTO DIFF Collected: 11/16/2017 Status: F Source: [facility] 10:40 AM [facility] REPOSITORY TYPE CODE TESTS RESULT OUT OF REFERENCE UNITS RANGE LAB LEE(LOINC) 37.0-80.0 % Neutrophil % 61.3 LAB LYM(LOINC) 10.0-50.0 % Lymphocyte % 24.9 LAB MON(LOINC) 1.7-13.0 % Monocyte % 7.7 LAB EO(LOINC) 0.0-7.0 % Eosinophil % 5.0 LAB BAS(LOINC) 0.0-2.5 % Basophil % 1.1 LAB ABLYM(LOIN 0.77-3.85 10 3/mcL C) Lymphocyte, 1.80 Absolute LAB SLOAN(LOINC 0.15-1.00 10 3/mcL ) Monocyte, 0.60 Absolute LAB AEOS(LOINC 0.00-0.40 10 3/mcL ) Eosinophil, 0.40 Absolute LAB ABAS(LOINC 0.00-0.19 10 3/mcL ) Basophil, 0.10 Absolute Performed By: #### CBC, ADIFF, ANEU, LIPID, CMP, GFR, FT4, TSH #### [address] [address] #### VI #### [place] [address] .NEUABS Collected: 11/16/2017 Status: F Source: [facility] 10:40 AM [facility] REPOSITORY TYPE CODE TESTS RESULT OUT OF REFERENCE UNITS RANGE LAB ANEU(LOINC) 2.85-6.16 10 3/mcL Neutrophil, 4.40 Absolute Performed By: #### CBC, ADIFF, ANEU, LIPID, CMP, GFR, FT4, TSH #### [place] [address] #### VIDH #### [place] [address] LIPID Collected: 11/16/2017 Status: F Source: [facility] 10:40 AM [facility] REPOSITORY TYPE CODE TESTS RESULT OUT OF REFERENCE UNITS RANGE LAB CHOL(LOINC 131-200 mg/dL ) Cholesterol High 201 Result Comment: Cholesterol Reference Interval: Less than 200 Desirable 200-239 Borderline high risk 240 and above High risk LAB TRIG(LOINC) 40-150 mg/dL Triglycerides High 210 Result Comment: Triglyceride Reference Interval: Less than 150 Normal 150-199 Borderline high risk 200-499 High risk 500 or higher Very high risk LAB HD(LOINC) 35-90 mg/dL HDL Cholesterol 38 Result Comment: HDL Reference Interval: Less than 40 Low - high risk 60 or above Optimal/lowers risk LAB LDL(LOINC) 0-130 mg/dL LDL Cholesterol 121 Result Comment: LDL is a calculated result and requires a 12-hr fast. LDL Reference Interval: Less than 100 Optimal 100-129 Near or above optimal 130-159 Borderline high risk 160-189 High risk 190 and above Very high risk Performed By: #### CBC, ADIFF, ANEU, LIPID, CMP, GFR, FT4, TSH #### [place] [address] #### VIDH #### [address] [address] CMP Collected: 11/16/2017 Status: F Source: [facility] 10:40 AM [facility] REPOSITORY TYPE CODE TESTS RESULT OUT OF REFERENCE UNITS RANGE LAB 1547-9 83-110 mg/dL GLUCOSE High 216 LAB NA(LOINC) 136-146 mEq/L Sodium Level 141 LAB K(LOINC) 3.5-5.1 mEq/L Potassium Level 4.8 LAB CL(LOINC) 98-107 mEq/L Chloride 105 LAB CO2(LOINC) 23-31 mEq/L CO2 24 LAB EBAL(LOINC mEq/L ) Electrolyte Balance 12.0 LAB BUN(LOINC) 7.0-18.0 mg/dL BUN High 25.0 LAB CRE(LOINC) 0.6-1.2 mg/dL Creatinine High Lvl (s) 1.3 LAB BC(LOINC) 7-27 ratio BUN/Creatinine 19 Ratio LAB CA(LOINC) 8.4-10.2 mg/dL Calcium Lvl 9.3 LAB PROT(LOINC 6.0-8.3 G/dL ) Total Protein 7.2 LAB ALB(LOINC) 3.4-4.8 G/dL Albumin Level 4.3 LAB GLB(LOINC) G/dL Globulin 2.9 LAB AG(LOINC) 1.1-2.5 ratio A/G Ratio 1.5 LAB BILT(LOINC 0.2-1.0 mg/dL ) Bili Total 0.5 LAB AP(LOINC) 40-135 IU/L Alk Phos 91 LAB AST(LOINC) 10-40 IU/L AST/SGOT 33 LAB ALT(LOINC) 10-35 IU/L ALT/SGPT 20 Performed By: #### CBC, ADIFF, ANEU, LIPID, CMP, GFR, FT4, TSH #### [address] [address] #### VIDH #### [address] [address] .GFR Collected: 11/16/2017 Status: F Source: [facility] 10:40 AM [facility] REPOSITORY TYPE CODE TESTS RESULT OUT OF REFERENCE UNITS RANGE LAB GFRAA(LOINC ml/min/1.73 ) sqm GFR 49 Ug[place]an Result Comment: GFR Population mean for , Non- Americans Ages 20-29 = 116 mL/min/1.73 sq.m. Ages 30-39 = 107 mL/min/1.73 sq.m. Ages 40-49 = 99 mL/min/1.73 sq.m. Ages 50-59 = 93 mL/min/1.73 sq.m. Ages 60-69 = 85 mL/min/1.73 sq.m. Ages 70+ = 75 mL/min/1.73 sq.m. Chronic Kidney Disease: Less than 60 mL/min/1.73 square meters End Stage Renal Disease: Less than 15 mL/min/1.73 square meters LAB GFRNO(LOINC) ml/min/1.73sqm GFR Non- 40 Result Comment: GFR Population mean for , Non- Americans Ages 20-29 = 116 mL/min/1.73 sq.m. Ages 30-39 = 107 mL/min/1.73 sq.m. Ages 40-49 = 99 mL/min/1.73 sq.m. Ages 50-59 = 93 mL/min/1.73 sq.m. Ages 60-69 = 85 mL/min/1.73 sq.m. Ages 70+ = 75 mL/min/1.73 sq.m. Chronic Kidney Disease: Less than 60 mL/min/1.73 square meters End Stage Renal Disease: Less than 15 mL/min/1.73 square meters Performed By: #### CBC, ADIFF, ANEU, LIPID, CMP, GFR, FT4, TSH #### [address] [address] #### VIDH #### [address] [address] FT4 Collected: 11/16/2017 Status: F Source: [facility] 10:40 AM [facility] REPOSITORY TYPE CODE TESTS RESULT OUT OF RANGE REFERENCE UNITS LAB FT4(LOINC) 0.6-1.7 ng/mL Free T4 1.0 Performed By: #### CBC, ADIFF, ANEU, LIPID, CMP, GFR, FT4, TSH #### [address] [address] #### VIDH #### [place] [address] TSH Collected: 11/16/2017 Status: F Source: [facility] 10:40 AM [facility] REPOSITORY TYPE CODE TESTS RESULT OUT OF RANGE REFERENCE UNITS LAB TSH(LOINC) 0.27-4.20 mcIU/mL High TSH 5.14 Result Comment: Above normal(expected)range Performed By: #### CBC, ADIFF, ANEU, LIPID, CMP, GFR, FT4, TSH #### [address] [address] #### VIDH #### [place] [address] VIDH Collected: 11/16/2017 Status: F Source: [facility] 10:40 AM [facility] REPOSITORY TYPE CODE TESTS RESULT OUT OF RANGE REFERENCE UNITS LAB VIDH(LOINC) ng/mL Vit. D 56 25-Hydroxy Result Comment: Interpretive Values Based on Total 25(OH)D: Severe Deficiency <20 ng/mL Mild to Moderate Deficiency 20-30 ng/mL Optimum Levels 30-100 ng/mL Toxicity Possible >100 ng/mL Performed By: #### CBC, ADIFF, ANEU, LIPID, CMP, GFR, FT4, TSH #### [address] [address] #### VIDH #### [place] [address] ALLERGIES ALLERGIES DATE TYPE / CODE NAME / CODE REACTION SEVERITY SOURCE 07/07/2018 Drug Penicillins/F Anaphylaxis Unknown [facility] All[facility]/416 [id number](RXN Hospital 405257(OM ORM) Repository ED CT) 07/07/2018 Drug Sulfa Vomiting Unknown [facility] Allergy/416 (Sulfonamide Hospital 328137(SN Antibiotics)/ Repository ED CT) [id number](RX NORM) 07/07/2018 Drug acetaminophen Vomiting Unknown [facility] Allergy/416 /[id number](R Hospital 327568(SN XNORM) Repository ED CT) 07/07/2018 Drug orange Hives Unknown [facility] Allergy/416 juice/[id number] Hospital 573002(SNOM 513(RXNORM) Repository ED CT) 07/07/2018 Drug strawberry/F0 Hives Unknown [facility] Allergy/416 17627801(RX[facility] ED [facility]) ENCOUNTERS ENCOUNTERS ADMIT/DISCHARGE ACCOUNT NUMBER ADMITTING ENCOUNTER LOCATION SOURCE CLASS 08/30/2018 [id number] [facility] ding:OLS.ACH Repository 08/23/2018 [id number] [facility] ding:OLS.ACH Repository 08/18/2018/08/18/20 [id number] Ambulatory BBuilding:RA SternBray[address] Repository 08/16/2018 [id number] Ambulatory [facility] ding:OLS.ACH Repository 08/09/2018 [id number] Ambulatory [facility] ding:OLS.ACH Repository 08/02/2018 [id number] [facility] ding:OLS.ACH Repository 07/26/2018 [id number] [facility] ding:OLS.ACH Repository 07/19/2018 [id number] [facility] ding:OLS.ACH Repository 07/12/2018 [id number] Ambulatory [facility] ding:OLS.ACH Repository 07/07/2018/07/11/20 [id number] Claudia [facility] Ambulatory [address] ding:PCURoom Repository : KPY553Vma: 1 07/07/2018 [id number] Claudia Cruz Ambulatory BMSBuilding: [place] [facility] Repository 07/07/2018 [id number] Claudia Cruz Ambulatory BMSBuilding: [facility] Repository 07/07/2018 [id number] Claudia Cruz Ambulatory BMSBuilding: [facility] Repository 07/07/2018 [id number] Claudia Cruz Ambulatory BMSBuilding: [place] [facility] Repository 07/07/2018 [id number] Claudia Cruz Ambulatory BMSBuilding: [facility] Repository 07/07/2018 [id number] Ambulatory BMSBuilding: [facility] Repository 05/26/2018/05/30/20 [id number] Ambulatory BBuilding:DR Owen [facility] Repository 05/24/2018/05/24/20 [id number] Emergency [address] ding:ED Repository 05/19/2018 [id number] [facility] 05/19/2018 [id number] [facility] 04/14/2018/04/19/20 [id number] Ambulatory BMSBuilding: [place] Repository 04/13/2018/04/19/20 [id number] [facility] [address] ding:LK6Rskn Repository : LJ039Smk: 1 04/13/2018 [id number] Oleghe, Ambulatory BMSBuilding: [place] Ifijen [facility]MS.[facility] Repository 04/13/2018 [id number] Oleghe, Ambulatory BMSBuilding: [place] Ifijen [facility]MS[facility] Repository 04/13/2018 [id number] Oleghe, Ambulatory BMSBuilding: [place] Ifijen [facility]MS.[facility] Repository 04/13/2018 [id number] Oleghe, Ambulatory BMSBuilding: [place] Ifijen [facility]MS[facility] Repository 04/13/2018 [id number] Oleghe, Ambulatory BMSBuilding: [facility] Ifijen [facility]MS[facility] Repository 04/13/2018 [id number] Oleghe, Ambulatory BMSBuilding: [facility] Ifijen [facility]MS[facility] Repository 04/13/2018 [id number] Oleghe, Ambulatory BMSBuilding: [place] Ifijen [facility]MS.[facility] Repository 03/19/2018 [id number] Emergency [address]in[address] [place] [address] ERRoom: System [id number]: Repository [id number] 03/18/2018/03/19/20 [id number] Claudia Cruz Inpatient [address] ding:PCURoom Repository : WNQ817Mmq: 1 03/18/2018 [id number] Claudia Cruz Ambulatory BMSBuilding: [facility] Repository 03/18/2018/03/19/20 [id number] Ambulatory BMSBuilding: Inge [facility] Repository 03/18/2018/03/19/20 [id number] Ambulatory BMSBuilding: [place] [facility] Repository 02/24/2018/02/29/20 [id number] Ambulatory [address] ding:DROP [facility] Repository 02/03/2018/02/04/20 [id number] Ambulatory [address] ding:RAD [facility] Repository 02/01/2018 [id number] Ambulatory [facility] ding:POLAB3 Repository 11/16/2017/11/21/19 [id number] Ambulatory [address] ding:DROP [facility] Repository PAYERS PAYERS ENCOUNTER GUARANTOR PAYER SUBSCRIBER SOURCE 08/30/2018 NO J Primary NOT GIVENUNK [place] [id number] Insurance:SELF PAY [place] Number: Effective Repository [id number]: (330) Date:2018-08-30 [phone] () 08/23/2018 NO J Primary NOT GIVENUNK [facility] [id number] Insurance:SELF [place]Y [place] Number: Effective Repository [phone]: (330) Date:2018-08-23 [phone] () 08/18/2018 NO J Primary [facility] HOFSTETTERDOB: Insurance:API HEALTHCAREERB: [facility] [id number] [facility] [id number] [facility]ository [facility] Number: [address] [place], [place] [id number] [place], [place] [address]Oni: (330) Date:2018-08-17 73808Yfc: () [id number] [phone] Name:NATTN Claims (HP)Tel: 000) DeptPO [address] (WP) [address] [place] [address]81[address]ET: 08/18/2018 Secondary NO [facility] Insurance:MEDICARE HOFSTETTERDOB: Foundation PART B IN[employer] [id number] Repository Number: [address] [id number] [place], [place] Date:2018-08-18 556[address]Ewp: [phone] [id number] [phone] Name:PCGS (HP)Tel: (000) Administrators LLCPO 000-0000 (WP) [address] [address]Qkywljqqh, [place] [address]QV: 08/16/2018 NO J Primary NO J [place] [id number] Insurance:MYCARE [facility] HOFSTETTERDOB: [facility] *IN [facility] 2696-03-18[place] Number: Repository [address]Agl: 330 [id number] [phone] () Date:8747-08-30PBIR CLAIMS [address]PTPO [address] [place] [address]DI: 08/16/2018 Secondary NOT GIVENUNK [place] Insurance:SELF PAY [facility] Number: Effective Repository Date:2018-08-16 08/09/2018 NO J Primary NO J [facility] [id number] Insurance:MYCARE [facility] HOFSTETTERDOB: [facility] *IN [facility] 7652-03-08Z[place]OWood[place] Number: Repository [address]Ksx: 330 [id number] [phone] () Date:9673-13-94GVYM CLAIMS DEPTPO [address] [place] [address]XK: 08/09/2018 Secondary NOT GIVENUNK [place] Insurance:SELF PAY [facility] Number: Effective Repository Date:2018-08-09 08/02/2018 NO J Primary NO J [place] [id number] Insurance:MYCARE [facility]SC HOFSTETTERDOB: [facility] *IN [facility] 9303-90-05[place] Number: Repository [address]Ygy: 330 [id number] [phone] (HP) Date:4998-70-97PCBO CLAIMS DEPTPO [address] [place] [address]SE: 08/02/2018 Secondary NOT GIVENUNK [place] Insurance:SELF PAY [facility] Number: Effective Repository Date:2018-08-02 07/26/2018 NO J Primary NO J [place] [id number] Insurance:MYCARE CRSC HOFSTETTERDOB: [facility] *IN [facility] 9292-56-73RBTWoodworth[place] Number: Repository [address]Ehb: 330 [id number] [phone] (HP) Date:6143-06-35GAMA CLAIMS DEPTPO [address] [place] [address]OS: 07/26/2018 Secondary NOT GIVENUNK [place] Insurance:SELF PAY [facility] Number: Effective Repository Date:2018-07-26 07/19/2018 NO J Primary NOT GIVENUNK [place] [id number] Insurance:SELF PAY [place] Number: Effective Repository [address]Eic: 330) Date:2018-07-19 [phone] () 07/12/2018 NO J Primary NO J [place] [id number] Insurance:MYCARE CRSC HOFSTETTERDOB: [facility] *IN [facility] 8382-26-31LTWWood[place], [place] Number: Repository [address]Pyt: 330 [id number] [phone] (HP) Date:5960-89-56IDXT CLAIMS [address], [place] [address]FN: 07/12/2018 Secondary NOT GIVENUNK [place] Insurance:SELF PAY [facility] Number: Effective Repository Date:2018-07-12 07/07/2018 NO J Primary NO J [place]ge [id number] Insurance:MYCARE CRSC HOFSTETTERDOB: Community SHAYE *IN [facility] 2095-02-33SRDWood[place] Number: Repository [address]Vhc: 330 [id number] [phone] () Date:4333-10-82KAMW CLAIMS DEPTPO [address] [place] [address]RJ: 07/07/2018 Secondary NOT GIVENUNK [place] Insurance:SELF PAY [facility] Number: Effective Repository Date:2018-07-07 07/07/2018 NO J Primary NO J [place] [id number] Insurance:MYCARE CRSC HOFSTETTERDOB: Community [place] *IN [facility] 2196-98-67[place]TE[place] Number: Repository [address]Ihy: 330 [id number] [phone] () Date:3862-20-26DRLA CLAIMS DEPTPO [address] [place] [address]TW: 07/07/2018 Secondary NOT GIVENUNK [place] Insurance:SELF PAY [facility] Number: Effective Repository Date:2018-07-07 07/07/2018 NO J Primary NO J [place] [id number] Insurance:MYCARE CRSC HOFSTETTERDOB: Community [place] *IN [facility] 1349-13-57[place]UG[place] Number: Repository [address]Odf: 330 [id number] [phone] () Date:8223-75-23RCTH CLAIMS DEPTPO [address] [place] [address]VU: 07/07/2018 Secondary NOT GIVENUNK [place] Insurance:SELF PAY [facility] Number: Effective Repository Date:2018-07-07 07/07/2018 NO J Primary NO J [place] [id number] Insurance:MYCARE CRSC HOFSTETTERDOB: Community [place] *IN [facility] 1523-16-44JFQ[place] Number: Repository [address]Oxg: 330 [id number] [phone] (HP) Date:7276-75-62SJRR CLAIMS DEPTPO [address] [place] [address]VH: 07/07/2018 Secondary NOT GIVENUNK [place] Insurance:SELF PAY [facility] Number: Effective Repository Date:2018-07-07 07/07/2018 NO J Primary NO J [place] [id number] Insurance:MYCARE CRSC HOFSTETTERDOB: Community [place] *IN [facility] 9346-84-46ECWWoodworth, [place] Number: Repository [address]Zvj: 330 [id number] [phone] (HP) Date:6731-54-60CBAF CLAIMS DEPTPO [address] [place] [address]MI: 07/07/2018 Secondary NOT GIVENUNK [place] Insurance:SELF PAY [facility] Number: Effective Repository Date:2018-07-07 07/07/2018 NO J Primary NO J [facility]ge [id number] Insurance:MYCARE CRSC HOFSTETTERDOB: Community [place] *IN [facility] 8767-76-[place]IED[place] Number: Repository [address]Lbe: 330 [id number] [phone] (HP) Date:3440-02-60JEDH CLAIMS DEPTPO [address] [place] [address]OS: 07/07/2018 Secondary NOT GIVENUNK [place] Insurance:SELF PAY [facility] Number: Effective Repository Date:2018-07-07 07/07/2018 NO J Primary NO J [facility] [id number] Insurance:MYCARE CRSC HOFSTETTERDOB: Community [place] *IN [facility] 2768-35-72TXDWoodworth, [place] Number: Repository [address]Qkc: 330 [id number] [phone] (HP) Date:3730-72-01LUJE CLAIMS DEPTPO [address] [place] [address]ES: 07/07/2018 Secondary NOT GIVENUNK [place] Insurance:SELF PAY [facility] Number: Effective Repository Date:2018-07-07 05/26/2018 [facility] Insurance:API HEALTHCAREERDOB: [facility] [id number] [facility] [id number] Repository [address] [facility] Number: [address] [place], [place] [id number] [place], [place] [address]Bvi: (529) Date:2017-03-27 41034Ftt: [id number] [phone] (HP)Tel: (914) Name:NATTN Claims (HP) (WP) DeptPO [address] () [address] [place] [address]NA: 05/24/2018 [facility] Primary [facility] [place] [id number] Insurance:MYCARE [facility] HOFSTETTERDOB: Community [place] *IN [facility] 5854-27-72[place]BW[place] Number: Repository [address]Fex: 330 [id number] [phone] () Date:8384-97-11MXOW CLAIMS DEPTPO [address] [place] [address]WU: 05/24/2018 Secondary NOT GIVENUNK [place] Insurance:SELF PAY [facility] Number: Effective Repository Date:2018-05-24 04/14/2018 [facility] Primary [facility] Inge [id number] Insurance:MYCARE [facility] HOFSTETTERDOB: Community [place] *IN [facility] 1219-16-09YKSSh[place] Number: Repository [address]Swt: 330 [id number] [phone] () Date:5875-95-02JSLH CLAIMS DEPTPO [address] [place] [address]OV: 04/14/2018 Secondary NOT GIVENUNK [place] Insurance:SELF PAY [facility] Number: Effective Repository Date:2018-04-14 04/13/2018 NO J Primary NO J [place] [id number] Insurance:MYCARE CRSC HOFSTETTERDOB: Community [place] *IN [facility] 7977-19-61XST[place] Number: Repository [address]Nih: 330 [id number] [phone] (HP) Date:0912-67-62EPPN CLAIMS DEPTPO [address] [place] [address]KR: 04/13/2018 Secondary NOT GIVENUNK [place] Insurance:SELF PAY [facility] Number: Effective Repository Date:2018-04-13 04/13/2018 NO J Primary NO J [facility] [id number] Insurance:MYCARE CRSC HOFSTETTERDOB: Community [place] *IN [place] [address] Number: Repository [address]Euq: 330 [id number] [phone] () Date:1571-11-91TUFA CLAIMS DEPTPO [address] [place] [address]FZ: 04/13/2018 Secondary NOT GIVENUNK [place] Insurance:SELF PAY [facility] Number: Effective Repository Date:2018-04-13 04/13/2018 NO J Primary NO J Inge [id number] Insurance:MYCARE CRSC HOFSTETTERDOB: Community [place] *IN [facility] [id number] [place] [address] Number: Repository [address]Mxz: 330 [id number] [phone] (HP) Date:6814-89-13PIOC CLAIMS DEPTPO [address] [place] [address]WO: 04/13/2018 Secondary NOT GIVENUNK [place] Insurance:SELF PAY [facility] Number: Effective Repository Date:2018-04-13 04/13/2018 NO J Primary NO J Inge [id number] Insurance:MYCARE CRSC HOFSTETTERDOB: Community [place] *IN [facility] 4170-18-[place]ELW[place] Number: Repository [address]Dwn: 330 [id number] [phone] (HP) Date:4808-37-83MTKE CLAIMS [address], [place] [address]HC: 04/13/2018 Secondary NOT GIVENUNK [place] Insurance[facility]SELF PAY [facility] Number: Effective Repository Date:2018-04-13 04/13/2018 NO J Primary NO J [place] [id number] Insurance:MYCARE CRSC HOFSTETTERDOB: Community [place] *IN [facility] 8992-49-27FLCSh[place], [place] Number: Repository [address]Fee: 330 [id number] [phone] () Date:3734-93-07FJOQ CLAIMS DEPTPO [address] [place] [address]HQ: 04/13/2018 Secondary NOT GIVENUNK [place] Insurance:SELF PAY [facility] Number: Effective Repository Date:2018-04-13 04/13/2018 NO J Primary NO J Inge [id number] Insurance:MYCARE CRSC HOFSTETTERDOB: Community [place] *IN [facility] 2384-85-30WDM[place], [place] Number: Repository [address]Khe: 330 [id number] [phone] () Date:6638-39-73ZAYX CLAIMS DEPTPO [address] [place] [address]PH: 04/13/2018 Secondary NOT GIVENUNK [place] Insurance:SELF PAY [facility] Number: Effective Repository Date:2018-04-13 04/13/2018 NO J Primary NO J Inge [id number] Insurance:MYCARE CRSC HOFSTETTERDOB: Community [place] *IN [facility] 8664-81-50NSOShar[place] Number: Repository [address]Bxw: (206) [id number] [phone] () Date:4143-40-02FWOJ CLAIMS [address] [address]ZQ: 04/13/2018 Secondary NOT GIVENUNK [place] Insurance:SELF PAY [facility] Number: Effective Repository Date:2018-04-13 04/13/2018 NO J Primary NO J Inge [id number] [facility] HOFSTETTERDOB: Community [place] *IN [facility] 7484-84-20ENJSh[place], [place] Number: Repository [address]Iwe: (241) [id number] [phone] () Date:4541-62-44XIGS CLAIMS [address] [address]TT: 04/13/2018 Secondary NOT GIVENUNK [place] Insurance:SELF PAY [facility] Number: Effective Repository Date:2018-04-13 03/19/2018 [facility] HofstetterDOB: Insurance:MedicarePol HofstetterDOB: System [id number] icy Number: Effective [id number] Repository [place], [place] Date: [address]Lsd: () 03/19/2018 Secondary [facility] Health Insurance:MedicarePol HofstetterDOB: System icy Number: Effective [id number] Repository Date: 03/19/2018 Tertiary [facility] Health Insurance:MedicaidPol HofstetterDOB: System icy Number: Effective [id number] Repository Date: 03/18/2018 NO J Primary NO J [place] [id number] Insurance:MEDICARE HOFSTETTERDOB: Community HERITAGE PART A [facility] [id number], [place] Number: Repository [address]Vsz: (480) [id number] [phone] () Date:2018-03-17 03/18/2018 Secondary NO J [place] Insurance:MEDICAIDPol HOFSTETTERDOB: Community icy Number: [id number] Hospital [id number] Repository Date:2018-03-17 03/18/2018 Tertiary NOT GIVENUNK [place] Insurance:SELF PAY [facility] Number: Effective Repository Date:2018-03-17 03/18/2018 NO J Primary NO J [place] [id number] Insurance:MEDICARE HOFSTETTERDOB: Community HERITAGE PART A [facility] [id number], [place] Number: Repository [address]Oxz: 330 [id number] [phone] (HP) Date:2018-03-17 03/18/2018 Secondary NO J [place] Insurance:MEDICAIDPol HOFSTETTERDOB: Community icy Number: [id number] [facility] [id number] Repository Date:2018-03-17 03/18/2018 Tertiary NOT GIVENUNK [place] Insurance:SELF PAY [facility] Number: Effective Repository Date:2018-03-18 03/18/2018 NO J Primary NO J Inge [id number] Insurance:MEDICARE HOFSTETTERDOB: Community HERITAGE PART A [facility] [id number], [place] Number: Repository [address]Xtg: 330 [id number] [phone] (HP) Date:2018-03-17 03/18/2018 Secondary NO J Inge Insurance:MEDICAIDPol HOFSTETTERDOB: Community icy Number: [id number] Hospital [id number] Repository Date:2018-03-17 03/18/2018 Tertiary NOT GIVENUNK [place] Insurance:SELF PAY [facility] Number: Effective Repository Date:2018-03-17 03/18/2018 NO J Primary NO J [place] [id number] Insurance:MEDICARE HOFSTETTERDOB: Community HERITAGE PART A [facility] [id number], [place] Number: Repository [address]Rnc: 330 [id number] [phone] (HP) Date:2018-03-17 03/18/2018 Secondary NO J [place] Insurance:MEDICAIDPol HOFSTETTERDOB: [facility] icy Number: [id number] Hospital [id number] Repository Date:2018-03-17 03/18/2018 Tertiary NOT GIVENUNK [place] Insurance:SELF PAY [facility] Number: Effective Repository Date:2018-03-18 02/24/2018 [facility] Primary [facility] Insurance:[facility]ICARE [facility]: [facility] [id number] PART BPolicy Number: [id number] Repository [address] [id number] [place], [place] Date:2018-02-24 - [place], [place] [address]Gta: [phone] [id number]: Name:[facility] [id number] ()Tel: [phone]) Hdfxqedtnajrza LLCPO () () [address] [place] [address], [phone] () [place] [address]LS: 02/24/[address] [facility] Insurance:[facility] [id number] Repository MCAIDPolicy Number: [id number] [id number] Date:2018-02-24 - [address]Ldn: [phone] [id number] [phone] Name:XCenpaticoPO [address] ()Tel: [phone], [place] 000[address] (WP) [address]HI: 02/03/[address] [facility]TTERDOB: Insurance:[facility]: [facility] [id number] PART BPolicy Number: [id number] Repository [address] [id number] [address] [place], [place] Date:2018-02-01 - [place], [place] [address]Igr: [phone] [phone]: Name:[facility] [phone] (HP)Tel: [phone]) Administrators LLCPO (HP) (WP) [address] [address]Iomobvzya, 000[address] (WP) [place] [address]ZV: 02/03/[address] [facility] Insurance:[facility] [id number] Repository [facility] Number: [address] [id number] [place], [place] Date:2018-02-01 [address]Tbp: [phone] [phone] Name:XCenpaticoPO Box (HP)Tel: [phone], [place] 000[address] (WP) [address]MQ: 02/01/2018 Baldemar Casper [facility]15142 Insurance:[facility] PART A [facility] [id number] Number: Repository [id number]: [phone] [id number] [phone] () Date:2018-02-01 02/01/2018 Secondary [facility] Insurance:SELF PAY [facility] Number: Effective Repository Date:2018-02-01 11/16/2017 [facility]: [facility] [id number] PART [facility] Number: [id number] Repository [address] [id number] [address] [place], [place] Date:2017-11-16 - [place], [place] [address]Jyx: [phone] [phone]: Name:[facility] [phone] (HP)Tel: [phone]) Administrators LLCPO (HP) (WP) [address] [address]Fcmhepgqy, 000[address] (WP) [place] [address]DT:
== END ==
LOC: OLS.ACH 04:00
PROVIDERS: Visit Provider Family Medicine
DX: I10 Essential (primary) hypertension (principal)
CPT/HCPCS: 36415; 80048; 85027

== ENCOUNTER → 2018-08-16 05:00 | Outpatient (REF) | payer MEDICARE, SELFPAY ==
[2018-08-16 09:44] LABS: Anion Gap 9 (5-15); BUN 23 mg/dL (7-18); BUN/Creat Ratio 20.4 RATIO (10-20); Calcium,Total 8.8 mg/dL (8.5-10.1); Chloride 106 mmol/L (98-107); Creatinine, Serum 1.13 mg/dL (0.55-1.02); EST Glomerular Filtration Rate 50 mL/min (>60); Est Glom Filt Rate - Afr Amer 60 mL/min (>60); Glucose 77 mg/dL (74-106); Potassium 4.8 mmol/L (3.5-5.1); Sodium Level 142 mmol/L (136-145)
== END ==
LOC: OLS.ACH 05:00
PROVIDERS: Visit Provider Family Medicine
DX: I10 Essential (primary) hypertension (principal)
CPT/HCPCS: 36415; 80048

== ENCOUNTER → 2018-08-23 04:00 | Outpatient (REF) | payer MEDICARE, SELFPAY ==
[2018-08-23 08:41] LABS: Anion Gap 7 (5-15); BUN 27 mg/dL (7-18); BUN/Creat Ratio 22.9 RATIO (10-20); Calcium,Total 8.9 mg/dL (8.5-10.1); Chloride 105 mmol/L (98-107); Creatinine, Serum 1.18 mg/dL (0.55-1.02); EST Glomerular Filtration Rate 47 mL/min (>60); Est Glom Filt Rate - Afr Amer 57 mL/min (>60); Glucose 96 mg/dL (74-106); Potassium 4.8 mmol/L (3.5-5.1); Sodium Level 138 mmol/L (136-145)
--- OUTSIDE RECORDS SUMMARY | 2018-10-09 04:39 | XMS RPT_ITS ---
:1940 Author Organization [place] Support Name Relationship Address Phone Aakash Muniz/Liseth Unavailable [address] + [place] [address] R Unavailable Unavailable Unavailable Antony Kimble Unavailable [address] + [place] [address] Aakash Muniz/Liseth Unavailable [address] + [place] [address] R Unavailable Unavailable Unavailable Antony Kimble Unavailable [address] + [place] [address] Aakash Muniz/Liseth Unavailable [address] + [place] [address] R Unavailable Unavailable Unavailable Antony Kimble Unavailable [address] + [place] [address] Aakash Muniz/Liseth Unavailable [address] + [place] [address] R Unavailable Unavailable Unavailable Antony Kimble Unavailable [address] + [place] [address] Aakash Muniz/Liseth Unavailable [address] + [place] [address] R Unavailable Unavailable Unavailable Shyanne, Antony Unavailable [address] + [place] [address] Aakash Muniz/Liseth Unavailable [address] + [place] [address] R Unavailable Unavailable Unavailable Antony Kimble Unavailable [address] + [place] [address] Cristy Aakash/Liseth Unavailable [address] + [place] [address] R Unavailable Unavailable Unavailable Azalia Kimblee Unavailable [address] + [place] [address] BALDEMAR MUNIZ Unavailable Unavailable + BALDEMAR MUNIZ Unavailable Unavailable + Cristy Aakash/Liseth Unavailable [address] + [place] [address] R Unavailable Unavailable Unavailable Antony Kimble Unavailable [address] + [place] [address] Cristy Aakash/Liseth Unavailable [address] [place] [address] CIR + [place] [address] R Unavailable Unavailable Unavailable Antony Kimble Unavailable [address] + [place] [address] Aakash Muniz/Liseth Unavailable [address] [place] [address] CIR + [place] [address] R Unavailable Unavailable Unavailable Antony Kimble Unavailable [address] + [place] [address] Aakash Muniz/Liseth Unavailable [address] [place] [address] CIR + [place] [address] R Unavailable Unavailable Unavailable Antony Kimble Unavailable [address] + [place] [address] Aakash Muniz/Liseth Unavailable [address] [place] [address] CIR + [place] [address] R Unavailable Unavailable Unavailable Azalia Kimblee Unavailable [address] + [place] [address] Cristy Aakash/Liseth Unavailable [address] + [place] [address] R Unavailable Unavailable Unavailable Shyanne, Antony Unavailable [address] + [place] [address] CRISTY AAKASH/LISETH Unavailable [address] [place] [address] CIR + [place] [address] R Unavailable Unavailable Unavailable ANTONY KIMBLE Unavailable [address] + [place] [address] Cristy Aakash/Liseth Unavailable [address] + [place] [address] R Unavailable Unavailable Unavailable Antony Kimble Unavailable [address] + [place] [address] Cristy Aakash/Liseth Unavailable [address] + [place] [address] R Unavailable Unavailable Unavailable Antony Kimble Unavailable [address] + [place] [address] Cristy Aakash/Liseth Unavailable [address] + [place] [address] R Unavailable Unavailable Unavailable Antony Kimble Unavailable [address] + [place] [address] CRISTY AAKASH/LISETH Unavailable [address] + [place] [address] R Unavailable Unavailable Unavailable ANTONY KIMBLE Unavailable [address] + [place] [address] CRISTYAAKASH/LISETH Unavailable [address] + [place] [address] R Unavailable Unavailable Unavailable ANTONY KIMBLE Unavailable [address] + [place] [address] CRISTY AAKASH/LISETH Unavailable [address] + [place] [address] R Unavailable Unavailable Unavailable ANTONY KIMBLE Unavailable [address] + [place] [address] BALDEMAR MUNIZ Unavailable Unavailable + BALDEMAR MUNIZ Unavailable Unavailable + CRISTY AAKASH/LISETH Unavailable Unavailable + R Unavailable Unavailable Unavailable SHYANNEAZALIAE Unavailable [address] + [place] [address] CRISTY AAKASH/LISETH Unavailable Unavailable + R Unavailable Unavailable Unavailable ANTONY KIMBLE Unavailable [address] + [place] [address] CRISTY AAKASH/LISETH Unavailable Unavailable + R Unavailable Unavailable Unavailable ANTONY KIMBLE Unavailable [address] + [place] [address] CRISTY AAKASH/LISETH Unavailable Unavailable + R Unavailable Unavailable Unavailable ANTONY KIMBLE Unavailable [address] + [place] [address] JONATTJONELLE AAKASH/LISETH Unavailable Unavailable + R Unavailable Unavailable Unavailable ANTONY KIMBLE Unavailable [address] + [place] [address] CRISTY AAKASH/LISETH Unavailable Unavailable + R Unavailable Unavailable Unavailable ANTONY KIMBLE Unavailable [address] + [place] [address] CRISTY AAKASH/LISETH Unavailable Unavailable + R Unavailable Unavailable Unavailable ANTONY KIMBLE Unavailable [address] + [place] [address] CRISTY AAKASH/LISETH Unavailable Unavailable + R Unavailable Unavailable Unavailable ANTONY KIMBLE Unavailable [address] + [place] [address] CRISTY AAKASH/LISETH Unavailable Unavailable + R Unavailable Unavailable Unavailable ANTONY KIMBLE Unavailable [address] + [place] [address] CRISTY AAKASH/LISETH Unavailable Unavailable + R Unavailable Unavailable Unavailable ANTONY KIMBLE Unavailable [address] + [place] [address] JhonyteAakash nevarez Unavailable Unavailable + JHONYTEDANY AAKASH/LISETH Unavailable Unavailable + R Unavailable Unavailable Unavailable SHYANNE, ANTONY Unavailable [address] + [place] [address] AAKASH MUNIZ/LISETH Unavailable Unavailable + R Unavailable Unavailable Unavailable ANTONY KIMBLE Unavailable [address] + [place] [address] AAKASH MUNIZ/LISETH Unavailable Unavailable + R Unavailable Unavailable Unavailable ANTONY KIMBLE Unavailable [address] + [place] [address] AAKASH MUNIZ/LISETH Unavailable Unavailable + R Unavailable Unavailable Unavailable ANTONY KIMBLE Unavailable [address] + [place] [address] BALDEMAR MUNIZ Unavailable Unavailable + BALDEMAR MUNIZ Unavailable Unavailable + BALDEMAR MUNIZ Unavailable Unavailable + BALDEMAR MUNIZ Unavailable Unavailable + SANTINO MUNIZLEY Unavailable [address] + [place] [address] R Unavailable Unavailable Unavailable BALDEMAR MUNIZ Unavailable Unavailable + BALDEMAR MUNIZ Unavailable Unavailable + Care Team Providers Name Role Phone LATIA CHAPA CNP Attending Unavailable LATIA CHAPA CNP Primary Care Unavailable DR. MAYLIN REAL DO Attending Unavailable LATIA CHAAP CNP Primary Care Unavailable LATIA CHAPA CNP Attending Unavailable LATIA CHAPA CNP Primary Care Unavailable LATIA CHAPA CNP Attending Unavailable LATIA CHAPA CNP Primary Care Unavailable REFERRING REFERRING, BRENT KENNEDY WO ID~[id number] Attending Unavailable LATIA CHAPA CNP Primary Care Unavailable RIEHM, HARRIETT L Attending Unavailable RIEHM, HARRIETT L Referring Unavailable RIEHMDAYNAHARRIETT L Attending Unavailable RIEHM, HARRIETT L Referring Unavailable Jovanni Valdez Attending Unavailable PROVIDER, UNKNOWN Referring Unavailable No, PCP Primary Care Unavailable Bre, Jono Attending Unavailable Averya, Jono Attending Unavailable Latia Chapa GUMMED TAPE PRESS OPERATOR-C Primary Care Unavailable Koram, Claudia Little Admitting Unavailable Koram, Claudia Little Attending Unavailable Petrilla, Jono Attending Unavailable Oleghe, Ifijen Admitting Unavailable Latia Chapa GUMMED TAPE PRESS OPERATOR-C Primary Care Unavailable Oleghe, Ifijen Consulting Unavailable Angella Waddell Attending Unavailable Petrilla, Jono Attending Unavailable Petrilla, Jono Attending Unavailable Petrilla, Jono Attending Unavailable Petrilla, Jono Attending Unavailable Petrilla, Jono Attending Unavailable Petrilla, Jono Attending Unavailable Koram, Claudia Little Admitting Unavailable Koram, Claudia Little Attending Unavailable Latia Chapa. GUMMED TAPE PRESS OPERATOR-C Primary Care Unavailable Koram, Claudia Little Consulting Unavailable Latia Chapa. GUMMED TAPE PRESS OPERATOR-C Primary Care Unavailable Koram, Claudia Little Admitting Unavailable Blueri, Dirk Attending Unavailable Shan Henry Attending Unavailable Karthik, Efewongbe Referring Unavailable Latia Chapa. GUMMED TAPE PRESS OPERATOR-C Primary Care Unavailable [place] Mtz Attending Unavailable Oleghe, Ifijen Admitting Unavailable Osvaldoelfah, Ghasem Attending Unavailable Latia Chapa GUMMED TAPE PRESS OPERATOR-C Primary Care Unavailable Ashelfah, Ghasem Consulting Unavailable Oleghe, Ifijen Admitting Unavailable Latia Chapa. GUMMED TAPE PRESS OPERATOR-C Primary Care Unavailable Ashelfah, Ghasem Consulting Unavailable Ashelfah, Ghasem Attending Unavailable Oleghe, Ifijen Admitting Unavailable Dex, Dirk Attending Unavailable Latia Chapa. GUMMED TAPE PRESS OPERATOR-C Primary Care Unavailable Jopperi, Dirk Consulting Unavailable Oleghe, Ifijen Admitting Unavailable Adenikepperi, Dirk Attending Unavailable Latia Chapa. GUMMED TAPE PRESS OPERATOR-C Primary Care Unavailable Jopperi, Dirk Consulting Unavailable Oleghe, Ifijen Admitting Unavailable Nitin, Srini Attending Unavailable Latia Chapa. GUMMED TAPE PRESS OPERATOR-C Primary Care Unavailable Tereletsky, Srini Consulting Unavailable Oleghe, Ifijen Admitting Unavailable Nitin, Srini Attending Unavailable Latia Chapa. GUMMED TAPE PRESS OPERATOR-C Primary Care Unavailable Nitin, Srini Consulting Unavailable Latia Chapa. GUMMED TAPE PRESS OPERATOR-C Primary Care Unavailable Oleghe, Ifijen Admitting Unavailable Anant Rodriguez Attending Unavailable Petrilla, Jono Attending Unavailable Petrilla, Jono Attending Unavailable Koram, Claudia Little Attending Unavailable Koram, Claudia Little Attending Unavailable Maylin Real Attending Unavailable Petrilla, Jono Attending Unavailable Nicholas Marquez Attending Unavailable Koram, Claudia Little Referring Unavailable Koram, Claudia Little Admitting Unavailable Latia Chapa GUMMED TAPE PRESS OPERATOR-C Primary Care Unavailable Dirk Kowalski Consulting Unavailable Dirk Kowalski Attending Unavailable Koram, Claudia Little Admitting Unavailable Kaushal, Jassi Attending Unavailable Latia Chapa GUMMED TAPE PRESS OPERATOR-C Primary Care Unavailable Steinberger, Jassi Consulting Unavailable Koram, Claudia Little Admitting Unavailable Jassi Easley Attending Unavailable Latia Chapa GUMMED TAPE PRESS OPERATOR-C Primary Care Unavailable Steinberger, Jassi Consulting Unavailable Koram, Claudia Little Admitting Unavailable Kaushal, Jassi Attending Unavailable Latia Chapa GUMMED TAPE PRESS OPERATOR-C Primary Care Unavailable Steinberger, Jassi Consulting Unavailable Koram, Claudia Little Admitting Unavailable Latia Chapa GUMMED TAPE PRESS OPERATOR-C Primary Care Unavailable Koram, Claudia Little Consulting Unavailable Koram, Claudia Little Attending Unavailable Bre, Jono Attending Unavailable PROBLEMS PROBLEMS DATE TYPE CONDITION / CODE ATTENDING STATUS SOURCE Unknown I10 - Essential Petrilla, Active [facility] 9 (primary) hypertension [facility] / I10(ICD-10) Hospital Repository Unknown D64.9 - Anemia, Petrilla, Active [facility] 8 unspecified / [facility] D64.9(ICD-10) Hospital Repository Unknown E11.9 - Type 2 Petrilla, Active [facility] 8 diabetes mellitus [facility] without complications Hospital / E11.9(ICD-10) Repository Unknown R94.31 - Abnormal Nicholas Marquez Active [facility] 8 electrocardiogram [facility] [ECG] [EKG] / Hospital R94.31(ICD-10) Repository Unknown M54.12 - Dirk Kowalski Active [facility] Radiculopathy, Community cervical region / Hospital M54.12(ICD-10) Repository Unknown M54.9 - Dorsalgia, Mtz, Active [facility] unspecified [facility] Admitting Pain in right shoulder HARRIETT ALEJANDRE [facility] 8 Diagnosis / M25.511(ICD-10) [facility] ([place]) Repository Unknown I44.7 - Left Carl, Shan Active [facility] 8 bundle-branch block, Community unspecified / Hospital I44.7(ICD-10) Repository Admitting Hypothyroidism, Valdez, [facility] 8 Diagnosis unspecified / System E03.9(ICD-10) Repository Admitting Vitamin D deficiency, Valdez, [facility] 8 Diagnosis unspecified / System E55.9(ICD-10) Repository Admitting Anesthesia of skin / Valdez, [facility] 8 Diagnosis R20.0(ICD-10) System Repository Admitting Spinal stenosis, Valdez, [facility] 8 Diagnosis cervical region / System M48.02(ICD-10) Repository Admitting Other spondylosis with Valdez, [facility]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, cervical System region / Repository M47.12(ICD-10) Admitting Urinary tract [facility] 8 Diagnosis infection, site not System specified / Repository N39.0(ICD-10) Admitting Other spondylosis with Valdez, [facility] 8 Diagnosis radiculopathy, System cervical region / Repository M47.22(ICD-10) Admitting Type 2 diabetes [facility] 8 Diagnosis mellitus with System hyperglycemia / Repository E11.65(ICD-10) Admitting nursing home (current) [facility] 8 Diagnosis use of insulin / System Z79.4(ICD-10) Repository Admitting Bradycardia, Valdez, [facility] 8 Diagnosis unspecified / System R00.1(ICD-10) Repository Admitting Type 2 diabetes Valdez, [facility] 8 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 Repository / E11.22(ICD-10) Admitting Hypertensive chronic [facility] [employer] 8 Diagnosis kidney disease w stg System 1-4/unsp chr kdny / Repository I12.9(ICD-10) Admitting Chronic kidney Valdez [facility] 8 Diagnosis disease, stage 3 System (moderate) / Repository N18.3(ICD-10) 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 Diagnosis 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 / System Z79.82(ICD-10) Repository 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 / Repository I25.10(ICD-10) Admitting Presence of Valdez, [facility]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(ICD-10) Repository Admitting Left bundle-branch Valdez, [facility] 8 Diagnosis block, unspecified / System I44.7(ICD-10) Repository Admitting Long QT syndrome / Valdez, [facility] 8 Diagnosis I45.81(ICD-10) System Repository Admitting Unsp Escherichia coli Valdez, [facility] 8 Diagnosis as the cause of System diseases [facility]d [facility] Rep[facility] / B96.20(ICD-10) Admitting Constipation, Valdez, [facility] 8 Diagnosis unspecified / System K59.00(ICD-10) Repository Admitting Iron deficiency Valdez, [facility] 8 Diagnosis anemia, unspecified / System D50.9(ICD-10) Repository Admitting Obesity, unspecified / Valdez, Jovanni Active [facility] 8 Diagnosis E66.9(ICD-10) System Repository Admitting Body mass index (BMI) Valdez, Jovanni Active [facility] 8 Diagnosis 32.0-32.9, adult / System Z68.32(ICD-10) Repository Admitting Coma scale, best motor Valdez, [facility] 8 Diagnosis response, obeys System commands, admit / Repository R40.2363(ICD-10) Admitting Coma scale, eyes open, Pancho Jovanni [facility] 8 Diagnosis spontaneous, at System hospital admission / Repository R40.2143(ICD-10) Admitting Coma scale, best Pancho Jovanni [facility] 8 Diagnosis verbal response, System oriented, admit / Repository R40.2253(ICD-10) Admitting History of falling / Pancho Jovanni Active [facility] 8 Diagnosis Z91.81(ICD-10) System Repository Admitting Major depressive Pancho [facility] 8 Diagnosis disorder, single System episode, unspecified / Repository F32.9(ICD-10) Admitting Insomnia, unspecified Pancho [facility] 8 Diagnosis / G47.00(ICD-10) System Repository Admitting Hyperlipidemia, Valdez, [facility] 8 Diagnosis unspecified / System E78.5(ICD-10) Repository Admitting 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 Repository PROCEDURES PROCEDURES No Procedure Records FoundRESULTS RESULTS BASIC METABOLIC Collected: 10/04/2018 Status: F Source: INGE PROFILE (BMP) 5:40 AM [facility] REPOSITORY Order Comment: 303/2 TYPE CODE TESTS RESULT OUT OF RANGE REFERENCE UNITS LAB L501.0100 74-106 mg/dL Normal GLU 106 Result Comment: Fasting Glucose result from 100 to 125 mg/dL suggests IMPAIRED HOMEOSTASIS per A.D.A. criteria. Please note revised GLUCOSE reference range effective 2017. LAB L501.1000 7-18 mg/dL High BUN 29 LAB L501.1100 0.55-1.02 mg/dL High CREAT,SERUM 1.09 Result Comment: The validity of the calculated GFR AND GFRAA in patients over 70 years has not been determined. Clinical correlation is essential. LAB L501.1110 >60 mL/min Low EST GFR 52 Result Comment: Non- GFR Calc LAB L501.1115 >60 mL/min Normal EST GFR - AA 63 Result Comment: GFR Calc LAB L501.1300 10-20 RATIO High BUN/CRE 26.6 LAB L501.2200 8.5-10.1 mg/dL CA Normal 9.2 LAB L501.5300 136-145 mmol/L NA Normal 141 LAB L501.5600 3.5-5.1 mmol/L K Normal 4.9 LAB L501.5900 98-107 mmol/L CL Normal 106 LAB L501.6100 21.0-32.0 mmol/L Normal CO2 25.0 LAB L501.6200 5-15 Normal GAP 10 Performed By: #### L500.2500 #### [facility] [address] [place], [address] BASIC METABOLIC Collected: 09/27/2018 Status: F Source: [place] PROFILE (BMP) 5:35 AM [facility] REPOSITORY Order Comment: ROOM 303-2 TYPE CODE TESTS RESULT OUT OF RANGE REFERENCE UNITS LAB L501.0100 74-106 mg/dL High GLU 116 Result Comment: Fasting Glucose result from 100 to 125 mg/dL suggests IMPAIRED HOMEOSTASIS per A.D.A. criteria. Please note revised GLUCOSE reference range effective 2017. LAB L501.1000 7-18 mg/dL High BUN 35 LAB L501.1100 0.55-1.02 mg/dL High CREAT,SERUM 1.18 Result Comment: The validity of the calculated GFR AND GFRAA in patients over 70 years has not been determined. Clinical correlation is essential. LAB L501.1110 >60 mL/min Low EST GFR 47 Result Comment: Non- GFR Calc LAB L501.1115 >60 mL/min Low EST GFR - AA 57 Result Comment: GFR Calc LAB L501.1300 10-20 RATIO High BUN/CRE 29.7 LAB L501.2200 8.5-10.1 mg/dL CA Normal 8.8 LAB L501.5300 136-145 mmol/L NA Normal 140 LAB L501.5600 3.5-5.1 mmol/L K Normal 4.7 LAB L501.5900 98-107 mmol/L CL Normal 105 LAB L501.6100 21.0-32.0 mmol/L Normal CO2 26.0 LAB L501.6200 5-15 Normal GAP 9 Performed By: #### L500.2500 #### [facility] [address] [place], [place], [address] BASIC METABOLIC Collected: 09/20/2018 Status: F Source: INGE PROFILE ([facility]) 6:20 AM [facility] REPOSITORY Order Comment: 303/2 TYPE CODE TESTS RESULT OUT OF RANGE REFERENCE UNITS LAB L501.0100 74-106 mg/dL Normal GLU 91 Result Comment: Please note revised GLUCOSE reference range effective 2017. LAB L501.1000 7-18 mg/dL High BUN 24 LAB L501.1100 0.55-1.02 mg/dL High CREAT,SERUM 1.13 Result Comment: The validity of the calculated GFR AND GFRAA in patients over 70 years has not been determined. Clinical correlation is essential. LAB L501.1110 >60 mL/min Low EST GFR 50 Result Comment: Non- GFR Calc LAB L501.1115 >60 mL/min Normal EST GFR - AA 60 Result Comment: GFR Calc LAB L501.1300 10-20 RATIO High BUN/CRE 21.2 LAB L501.2200 8.5-10.1 mg/dL CA Normal 8.9 LAB L501.5300 136-145 mmol/L NA Normal 140 LAB L501.5600 3.5-5.1 mmol/L K Normal 4.4 LAB L501.5900 98-107 mmol/L CL Normal 106 LAB L501.6100 21.0-32.0 mmol/L Normal CO2 27.0 LAB L501.6200 5-15 Normal GAP 7 Performed By: #### L500.2500 #### [facility] [address] [place], [address] BASIC METABOLIC Collected: 09/14/2018 Status: F Source: INGE PROFILE ([facility]) 6:37 AM [facility] REPOSITORY Order Comment: 303/2 TYPE CODE TESTS RESULT OUT OF RANGE REFERENCE UNITS LAB L501.0100 74-106 mg/dL High GLU 124 Result Comment: Fasting Glucose result from 100 to 125 mg/dL suggests IMPAIRED HOMEOSTASIS per A.D.A. criteria. Please note revised GLUCOSE reference range effective 2017. LAB L501.1000 7-18 mg/dL High BUN 23 LAB L501.1100 0.55-1.02 mg/dL High CREAT,SERUM 1.17 Result Comment: The validity of the calculated GFR AND GFRAA in patients over 70 years has not been determined. Clinical correlation is essential. LAB L501.1110 >60 mL/min Low EST GFR 48 Result Comment: Non- GFR Calc LAB L501.1115 >60 mL/min Low EST GFR - AA 58 Result Comment: GFR Calc LAB L501.1300 10-20 RATIO Normal BUN/CRE 19.7 LAB L501.2200 8.5-10.1 mg/dL CA Normal 8.7 LAB L501.5300 136-145 mmol/L NA Normal 140 LAB L501.5600 3.5-5.1 mmol/L K Normal 4.7 LAB L501.5900 98-107 mmol/L CL Normal 107 LAB L501.6100 21.0-32.0 mmol/L Normal CO2 23.0 LAB L501.6200 5-15 Normal GAP 10 Performed By: #### L500.2500 #### [facility] [address] [place], [address] BASIC METABOLIC Collected: 09/05/2018 Status: F Source: INGE PROFILE ([facility]) 4:20 AM [facility] REPOSITORY Order Comment: 303/2 TYPE CODE TESTS RESULT OUT OF RANGE REFERENCE UNITS LAB L501.0100 74-106 mg/dL Low GLU 59 Result Comment: Please note revised GLUCOSE reference range effective 2017. LAB L501.1000 7-18 mg/dL High BUN 29 LAB L501.1100 0.55-1.02 mg/dL High CREAT,SERUM 1.28 Result Comment: The validity of the calculated GFR AND GFRAA in patients over 70 years has not been determined. Clinical correlation is essential. LAB L501.1110 >60 mL/min Low EST GFR 43 Result Comment: Non- GFR Calc LAB L501.1115 >60 mL/min Low EST GFR - AA 52 Result Comment: GFR Calc LAB L501.1300 10-20 RATIO High BUN/CRE 22.7 LAB L501.2200 8.5-10.1 mg/dL CA Normal 8.6 LAB L501.5300 136-145 mmol/L NA Normal 143 LAB L501.5600 3.5-5.1 mmol/L K Normal 4.4 LAB L501.5900 98-107 mmol/L CL Normal 105 LAB L501.6100 21.0-32.0 mmol/L Normal CO2 27.0 LAB L501.6200 5-15 Normal GAP 11 Performed By: #### L500.2500 #### [facility] [address] [place], [place], [address] BASIC METABOLIC Collected: 08/30/2018 Status: F Source: INGE PROFILE (BMP) 6:20 AM [facility] REPOSITORY Order Comment: 303/2 TYPE CODE TESTS [...] GAP 9 Performed By: #### L500.2500 #### [facility] [address] [facility] [place], [place], [address] BASIC METABOLIC Collected: 08/23/2018 Status: F Source: INGE PROFILE (BMP) 4:49 AM [facility] REPOSITORY Order Comment: 303/2 TYPE CODE TESTS [...] 7 GAP Performed By: #### L500.2500 #### [facility] [address] [place] [address]. [place], [place], [address] MRI SPINE CERVICAL Observed: 08/18/2018 Status: F Source: [facility] W/O CONTRAST 2:00 PM [facility] REPOSITORY ORIGINAL [...] spinal canal stenosis. Interpreted By: Reynaldo Shell Preliminary Report By: Reynaldo Shell Electronically Signed By: Reynaldo Shell Dictated Date: 08/18/2018 3:16:08 PM Prelim Date: 08/18/2018 3:16:08 PM Sign Date: 08/18/2018 3:21:36 PM BASIC METABOLIC Collected: 08/16/2018 Status: F Source: INGE PROFILE (BMP) 6:05 AM [facility] REPOSITORY Order Comment: ROOM 303 TYPE CODE [...] GAP 9 Performed By: #### L500.2500 #### [facility] [address] [place], [place], [id number] BASIC METABOLIC Collected: 08/09/2018 Status: F Source: INGE PROFILE (BMP) 6:40 AM [facility] REPOSITORY Order Comment: ROOM 303 TYPE CODE [...] GAP 10 Performed By: #### L500.2500 #### [facility] [address] [place], [place], [id number] CBC-COMPLETE BLOOD CNT Collected: 08/09/2018 Status: F Source: INGE NO DIFF 6:40 AM [facility] REPOSITORY Order Comment: ROOM 303 TYPE CODE [...] MPV 12.4 Performed By: #### L100.0500 #### [facility] [address] [place], [place], [id number] CBC-COMPLETE BLOOD CNT Collected: 08/02/2018 Status: F Source: INGE NO DIFF 5:55 AM [facility] REPOSITORY Order Comment: 303-2 TYPE CODE TESTS [...] MPV 12.3 Performed By: #### L100.0500 #### [facility] [address] [place], [address] BASIC METABOLIC Collected: 08/02/2018 Status: F Source: INGE PROFILE (BMP) 5:55 AM [facility] REPOSITORY Order Comment: 303-2 TYPE CODE TESTS [...] GAP 9 Performed By: #### L500.2500 #### [facility] [address] [place], [address] CBC-COMPLETE BLOOD CNT Collected: 07/26/2018 Status: F Source: INGE NO DIFF 7:35 AM [facility] REPOSITORY Order Comment: RM: 303/2 TYPE CODE [...] MPV 11.5 Performed By: #### L100.0500 #### [facility] [address] [place], [place], [address] BASIC METABOLIC Collected: 07/26/2018 Status: F Source: INGE PROFILE ([facility]) 7:35 AM [facility] REPOSITORY Order Comment: RM: 303/2 TYPE CODE [...] GAP 6 Performed By: #### L500.2500 #### [facility] [address] [place], [address] 12 LEAD ELECTROCARDIOGRAM Observed: 07/20/2018 Status: F Source: INGE 2:51 PM [facility] REPOSITORY [facility] Cardiovascular Services [address] [place] [address] 12 Lead EKG 07/08/18 0456 MR#: [id number] Acct: [id number] Name: NO MUNIZ Rep #: [id number] : 1940 78 From: Shan Henry MD Attending Dr: Dirk Kowalski DO Status: DIS DEISY Ordering Dr: Jassi Easley MD Date: 07/08/18 Location: [facility] Sex: F C Admitted: 07/07/18 Test Reason [...] COMPARISON REQUIRED, DATA IS UNCONFIRMED Confirmed by SHAN HENRY MD ([id number]), greeting card editor DAMIAN MCCRACKEN ([id number]) on 07/20/2018 2:50:35 PM Referred By: ARIS Confirmed By:SHAN HENRY MD 07/20/18 1450 Date Shan Henry MD CC: GUMMED TAPE PRESS OPERATORKristopher Chapa; Dirk Kowalski DO; Jassi Easley MD Signed CBC-COMPLETE BLOOD CNT Collected: 07/19/2018 Status: F Source: INGE NO DIFF 5:40 AM [facility] REPOSITORY Order Comment: ROOM 303 TYPE CODE [...] MPV 13.8 Performed By: #### L100.0500 #### [facility] [address] [place], [place], [address] BASIC METABOLIC Collected: 07/19/2018 Status: F Source: [place] PROFILE (BMP) 5:40 AM [facility] REPOSITORY Order Comment: ROOM 303 TYPE CODE [...] GAP 9 Performed By: #### L500.2500 #### [facility] [address] [place], [address] 12 LEAD ELECTROCARDIOGRAM Observed: 07/14/2018 Status: F Source: INGE 4:13 PM [facility] REPOSITORY [facility] Cardiovascular Services [address] [place] [address] 12 Lead EKG 07/08/18 2104 MR#: [id number] Acct: [id number] Name: NO MUNIZ John Rep #: [id number] : 1940 78 From: Jassi Lord MD Attending Dr: Dirk Kowalski DO Status: DIS DESIY Ordering Dr: Claudia Cruz MD Date: 07/08/18 Location: [facility] Sex: F C Admitted: 07/07/18 Test Reason [...] Abnormal ECG Confirmed by JAIME EL, JASSI ([id number]), greeting card editor DAMIAN MCCRACKEN ([id number]) on 07/14/2018 4:13:10 PM Referred By: CADENCE Confirmed By:JASSI LORD MD 07/14/18 1613 Date Jassi Lord MD CC: HIMANSHU Chapa; Dirk Kowalski DO; Claudia Cruz MD Signed 12 LEAD ELECTROCARDIOGRAM Observed: 07/12/2018 Status: F Source: INGE 12:47 PM [facility] REPOSITORY [facility] Cardiovascular Services [address] [place] [address] 12 Lead EKG 07/07/18 1610 MR#: [id number] Acct: [id number] Name: HOWARDALEJANDRINANO COTTON Rep #: [id number] : 1940 78 From: Nicholas Marquez MD Attending Dr: Dirk Kowalski DO Status: DIS DEISY Ordering Dr: Claudia Cruz MD Date: 07/07/18 Location: [facility] Sex: F C Admitted: 07/07/18 Test Reason [...] IS UNCONFIRMED Confirmed by NICHOLAS MARQUEZ ([id number]), greeting card editor DAMIAN MCCRACKEN ([id number]) on 07/12/2018 12:47:18 PM Referred By: CADENCE Confirmed By:NICHOLAS MARQUEZ 07/12/18 1247 Date Nicholas Marquez MD CC: GUMMED TAPE PRESS OPERATORKristopher Chapa; Dirk Kowalski DO; lCaudia Cruz MD Signed 12 LEAD ELECTROCARDIOGRAM Observed: 07/12/2018 Status: F Source: [place] 8:58 AM [facility] REPOSITORY [facility] Cardiovascular Services [address] [place] [address] 12 Lead EKG 07/07/18 1451 MR#: [id number] Acct: [id number] Name: NO MUNIZ Rep #: [id number] : 1940 78 From: Nicholas Marquez MD Attending Dr: Dirk Kowalski DO Status: DIS DEISY Ordering Dr: Tello Valdez MD Date: 07/07/18 Location: [facility] Sex: F C Admitted: 07/07/18 Test Reason [...] Abnormal ECG Confirmed by NICHOLAS MARQUEZ ([id number]), greeting card editor DAMIAN MCCRACKEN ([id number]) on 07/12/2018 8:58:41 AM Referred By: PANCHO Confirmed By:NICHOLAS MARQUEZ 07/12/1858 Date Nicholas Marquez MD CC: HIMANSHU Chapa; Dirk Kowalski DO; Tello Valdez MD Signed 12 LEAD ELECTROCARDIOGRAM Observed: 07/12/2018 Status: F Source: INGE 8:57 AM [facility] REPOSITORY [facility] Cardiovascular Services [address] [place] [address] 12 Lead EKG 07/07/18 1310 MR#: [id number] Acct: [id number] Name: NO MUNIZ Rep #: [id number] : 1940 78 From: Nicholas Marquez MD Attending Dr: Dirk Kowalski DO Status: DIS DEISY Ordering Dr: Tello Valdez MD Date: 07/07/18 Location: [facility] Sex: F C Admitted: 07/07/18 Test Reason [...] Abnormal ECG Confirmed by NICHOLAS MARQUEZ ([id number]), greeting card editor DAMIAN MCCRACKEN ([id number]) on 07/12/2018 8:57:16 AM Referred By: PANCHO Confirmed By:NICHOLAS MARQUEZ 07/12/18 0857 Date Nicholas Marquez MD CC: HIMANSHU Chapa; Dirk Kowalski DO; Tello Valdez MD Signed CBC-COMPLETE BLOOD CNT Collected: 07/12/2018 Status: F Source: INGE NO DIFF 7:00 AM [facility] REPOS[facility] Order Comment: 303-2 TYPE CODE TESTS [...] MPV 12.1 Performed By: #### L100.0500 #### [facility] [address] [place], [address] BASIC METABOLIC Collected: 07/12/2018 Status: F Source: INGE PROFILE (BMP) 7:00 AM [facility] REPOSIT[facility] Order Comment: 303-2 TYPE CODE TESTS [...] GAP 4 Performed By: #### L500.2500 #### [facility] [address] [place], [address] HEMOGLOBIN A1C Collected: 07/12/2018 Status: F Source: [place] 5:00 AM [facility] REPOSITORY Order Comment: 1030:H47 TYPE CODE TESTS RESULT OUT OF RANGE REFERENCE UNITS LAB L501.9985 4.2-6.3 % Normal HGB A1C 6.3 Performed By: #### L501.9985 #### [facility] [address] [place], [address] DISCHARGE SUMMARY Observed: 07/11/2018 Status: F Source: [place] 4:53 PM [facility] REPOSITORY [facility] Medical Records Department [address] [place] [address] Discharge Summary 07/11/18 1107 MR#: [id number] Acct: [id number] Name: NO MUNIZ Rep #: [id number] : 1940 78 From: Shavon DOWNS PCP: HIMANSHU Gill Status: DIS DEISY Y Location: [place] [address] <Shavon Bradley - Last Filed: 07/11/18 11:18> [...] Jens Thurman MD at 13:54 EDT Tel [phone], Service support , Shoulder X-Ray 07/07/18 17:00 IMPRESSION: 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 Electronically Signed: Luisito Harper DO at 17:17 EDT Tel [phone], Service support , Operations: None Procedures: Stress [...] Days #10 tab PRN Reason: Severe Pain (6-06/22) Primary Care Physician: Latia Chapa, JESU-C [Primary Care Provider] - Please follow up with your Primary Care Physician in: 1 Week Disposition: Detention facility Minutes spent on discharge:: 35 Patient [...] symptoms and was seeing a neurosurgeon at [facility]. Patient will need to follow-up with neurosurgery [...] Discharge Activity: Return to Normal Activity Disposition: Detention facility Minutes spent on discharge:: 35 Patient Condition:: Stable Meaningful Use Info Meaningful Use Diagnoses (Choose all that apply): None applicable Code Visit Inpatient E AND M: 49143 Disch Hosp 07/11/18 1119 <Electronically signed by Shavon DOWNS> Date Shavon HOLLANDC 07/11/18 1653<Electronically signed by Dirk Kowalski DO> Cosigner Signature (if applicable): Date Dirk Kowalski DO CC: HIMANSHU Bradley; HIMANSHU Chapa; Dirk Kowalski DO Signed TRANSFER TO [facility] Observed: 07/11/2018 Status: F Source: [facility] 1:50 PM [facility] REPOSITORY [facility] Medical Records Department [address] [place], [place] [address] [address] Transfer to [facility] Care MR#: [id number] Acct: [id number] Name: NO MUNIZ Rep #: [id number] : 1940 78 From: Shavon HOLLANDC PCP: HIMANSHU Gill Status: ADM DEISY NO MUNIZ (Patient) (Health Ins. Claim No.) (Day of Discharge to Facility) Certification of patient admission REQUIRED AT TIME OF ADMISSION. I CERTIFY THAT POST-HOSPITAL ECF SERVICES ARE REQUIRED TO BE GIVEN ON AN IN-PATIENT BASIS BECAUSE OF THE ABOVE NAMED PATIENT'S NEED FOR CORRECTION CARE ON A CONTINUING BASIS FOR THE CONDITION(S) FOR WHICH HE/SHE WAS RECEIVING IN-PATIENT HOSPITAL SERVICES PRIOR TO HIS/HER TRANSFER TO THE F. 07/11/18 7420 <Electronically signed by Dirk Kowalski DO> Date: [...] Follow Up Care Primary Care Physician: Latia Chapa NP-C [Primary Care Provider] - Please follow up with your Primary Care Physician in: 1 Week 07/11/18 1107 <Electronically signed by Shavon HOLLANDC> Date Shavon DOWNS 07/11/18 1350<Electronically signed by Dirk Kowalski DO> Cosigner Signature: Date Dirk Kowalski DO CC: GUMMED TAPE PRESS OPERATOR-Loli Chapa BEDSIDE GLUCOSE Collected: 07/11/2018 Status: F Source: INGE 10:59 AM [facility] REPOSITORY TYPE CODE TESTS RESULT OUT OF REFERENCE UNITS RANGE LAB L501.080 70-110 mg/dL High BEDSIDE GLU 140 Result Comment: MANAGEMENT OF PATIENT CARE PER NURSING PROTOCOL Performed By: #### L501.080 #### [facility] Point of Care [facility] [place] [address] BEDSIDE GLUCOSE Collected: 07/11/2018 Status: F Source: INGE 6:45 AM [facility] REPOSITORY TYPE CODE TESTS RESULT OUT OF RANGE REFERENCE UNITS LAB L501.080 70-110 mg/dL Normal BEDSIDE GLU 93 Result Comment: MANAGEMENT OF PATIENT CARE PER NURSING PROTOCOL Performed By: #### L501.080 #### [facility] Point of Care [address] [place] [address] BASIC METABOLIC Collected: 07/11/2018 Status: F Source: INGE PROFILE (BMP) 5:35 AM [facility] REPOSITORY TYPE CODE TESTS RESULT OUT OF [...] Performed By: #### L500.2500, L501.2300, L501.5200 #### [facility] [address] [place], [address] PHOSPHORUS Collected: 07/11/2018 Status: F Source: INGE 5:35 AM [facility] REPOSITORY TYPE CODE TESTS RESULT OUT OF RANGE REFERENCE UNITS LAB L501.2300 2.5-4.9 mg/dL Normal PHOS 4.4 Performed By: #### L500.2500, L501.2300, L501.5200 #### [facility] [address] [place], [place], [address] MAGNESIUM Collected: 07/11/2018 Status: F Source: [place] 5:35 AM [facility] REPOSITORY TYPE CODE TESTS RESULT OUT OF RANGE REFERENCE UNITS LAB L501.5200 1.6-2.6 mg/dL Normal MG 2.2 Performed By: #### L500.2500, L501.2300, L501.5200 #### [facility] [address] [place], [address] CBC W/DIFF, AUTOMATED Collected: 07/11/2018 Status: F Source: [place] 5:35 AM [facility] REPOSITORY TYPE CODE TESTS RESULT OUT OF [...] Lymph 2.84 Performed By: #### L100.0100 #### [facility] [address] [place], [address] BEDSIDE GLUCOSE Collected: 07/10/2018 Status: F Source: INGE 10:08 PM [facility]POSIT[facility] TYPE CODE TESTS RESULT OUT OF REFERENCE UNITS RANGE LAB L501.080 70-110 mg/dL High BEDSIDE GLU 168 Result Comment: MANAGEMENT OF PATIENT CARE PER NURSING PROTOCOL Performed By: #### L501.080 #### [facility] Point of Care [address] [place] [address] BEDSIDE GLUCOSE Collected: 07/10/2018 Status: F Source: INGE 4:59 PM [facility]POS[facility] TYPE CODE TESTS RESULT OUT OF REFERENCE UNITS RANGE LAB L501.080 70-110 mg/dL High BEDSIDE GLU 183 Result Comment: MANAGEMENT OF PATIENT CARE PER NURSING PROTOCOL Performed By: #### L501.080 #### [facility] Point of Care [address] [place] [address] BEDSIDE GLUCOSE Collected: 07/10/2018 Status: F Source: INGE 11:28 AM [facility]POS[facility]ORY TYPE CODE TESTS RESULT OUT OF RANGE REFERENCE UNITS LAB L501.080 70-110 mg/dL Normal BEDSIDE GLU 75 Result Comment: MANAGEMENT OF PATIENT CARE PER NURSING PROTOCOL Performed By: #### L501.080 #### [facility] Point of Care [address] [place] [address] BEDSIDE GLUCOSE Collected: 07/10/2018 Status: F Source: INGE 6:48 AM [facility]POS[facility] TYPE CODE TESTS RESULT OUT OF REFERENCE UNITS RANGE LAB L501.080 70-110 mg/dL High BEDSIDE GLU 143 Result Comment: MANAGEMENT OF PATIENT CARE PER NURSING PROTOCOL Performed By: #### L501.080 #### [facility] Point of Care [address] [place] [address] BEDSIDE GLUCOSE Collected: 07/09/2018 Status: F Source: INGE 9:12 PM [facility] REPOSIT[facility] TYPE CODE TESTS RESULT OUT OF REFERENCE UNITS RANGE LAB L501.080 70-110 mg/dL High BEDSIDE GLU 145 Result Comment: MANAGEMENT OF PATIENT CARE PER NURSING PROTOCOL Performed By: #### L501.080 #### [facility] Point of Care [address] [place] [address] BEDSIDE GLUCOSE Collected: 07/09/2018 Status: F Source: INGE 4:41 PM [facility] REPOSIT[facility] TYPE CODE TESTS RESULT OUT OF REFERENCE UNITS RANGE LAB L501.080 70-110 mg/dL High BEDSIDE GLU 125 Result Comment: MANAGEMENT OF PATIENT CARE PER NURSING PROTOCOL Performed By: #### L501.080 #### [facility] Point of Care [address] [place] [address] BEDSIDE GLUCOSE Collected: 07/09/2018 Status: F Source: INGE 11:31 AM [facility] REPOSITORY TYPE CODE TESTS RESULT OUT OF REFERENCE UNITS RANGE LAB L501.080 70-110 mg/dL High BEDSIDE GLU 121 Result Comment: MANAGEMENT OF PATIENT CARE PER NURSING PROTOCOL Performed By: #### L501.080 #### [facility] Point of Care [address] [place] [address] BEDSIDE GLUCOSE Collected: 07/09/2018 Status: F Source: INGE 6:51 AM [facility] REPOSIT[facility] TYPE CODE TESTS RESULT OUT OF RANGE REFERENCE UNITS LAB L501.080 70-110 mg/dL Normal BEDSIDE GLU 82 Result Comment: MANAGEMENT OF PATIENT CARE PER NURSING PROTOCOL Performed By: #### L501.080 #### [facility] Point of Care [address] [place] [address] CBC W/DIFF, AUTOMATED Collected: 07/09/2018 Status: F Source: INGE 6:25 AM [facility] REPOSITORY TYPE CODE TESTS RESULT OUT OF [...] Lymph 2.26 Performed By: #### L100.0100 #### [facility] [place], [address] COMPREHENSIVE METABOLIC Collected: 07/09/2018 Status: F Source: INGE [place]OON 6:25 AM [facility] REPOSITORY TYPE CODE TESTS RESULT OUT OF [...] Performed By: #### L500.4050, L501.2300, L501.5200 #### [facility] [address] [place], [address] PHOSPHORUS Collected: 07/09/2018 Status: F Source: [place] 6:25 AM [facility] REPOSITORY TYPE CODE TESTS RESULT OUT OF RANGE REFERENCE UNITS LAB L501.2300 2.5-4.9 mg/dL High PHOS 5.1 Performed By: #### L500.4050, L501.2300, L501.5200 #### [facility] [address] [place], [address] MAGNESIUM Collected: 07/09/2018 Status: F Source: INGE 6:25 AM [facility] REPOSITORY TYPE CODE TESTS RESULT OUT OF RANGE REFERENCE UNITS LAB L501.5200 1.6-2.6 mg/dL Normal MG 2.2 Performed By: #### L500.4050, L501.2300, L501.5200 #### [facility] [address] [place], [address] BEDSIDE GLUCOSE Collected: 07/08/2018 Status: F Source: INGE 9:49 PM [facility] REPOSITORY TYPE CODE TESTS RESULT OUT OF REFERENCE UNITS RANGE LAB L501.080 70-110 mg/dL High BEDSIDE GLU 164 Result Comment: MANAGEMENT OF PATIENT CARE PER NURSING PROTOCOL Performed By: #### L501.080 #### [facility] Point of Care [address] [place] [address] BEDSIDE GLUCOSE Collected: 07/08/2018 Status: F Source: INGE 4:33 PM [facility] REPOSITORY TYPE CODE TESTS RESULT OUT OF REFERENCE UNITS RANGE LAB L501.080 70-110 mg/dL High BEDSIDE GLU 179 Result Comment: MANAGEMENT OF PATIENT CARE PER NURSING PROTOCOL Performed By: #### L501.080 #### [facility] Point of Care [address] [place] [address] BEDSIDE GLUCOSE Collected: 07/08/2018 Status: F Source: INGE 11:25 AM [facility] REPOSITORY TYPE CODE TESTS RESULT OUT OF REFERENCE UNITS RANGE LAB L501.080 70-110 mg/dL High BEDSIDE GLU 116 Result Comment: MANAGEMENT OF PATIENT CARE PER NURSING PROTOCOL Performed By: #### L501.080 #### [facility] Point of Care [address] [place] [address] STRESS REPORT Observed: 07/08/2018 Status: F Source: INGE 9:42 AM [facility] REPOSITORY [facility] Cardiovascular Services [address] [place] [address] MR#: [id number] Acct: [id number] Name: NO MUNIZ Rep #: [id number] : 1940 78 From: Jassi Lord MD Primary Care: Latia Chapa, GUMMED TAPE PRESS OPERATOR-C Status: ADM DEISY Ordering Dr: Sex: F [...] 60 %. This note was generated with [employer] dictation software. It may contain incorrect words, spelling, and punctuation that were not noted in checking the note before signing. 07/08/18941 <Electronically signed by Jassi Lord MD> Date Jassi Lord MD CC: HIMANSHU Chapa; Jassi Easley MD Date Dictated: 07/08/18938 Date Transcribed: 07/08/18938 [employer] Consultant: PM Signed BEDSIDE GLUCOSE Collected: 07/08/2018 Status: F Source: INGE 5:36 AM [facility] REPOSITORY TYPE CODE TESTS RESULT OUT OF RANGE REFERENCE UNITS LAB L501.080 70-110 mg/dL Normal BEDSIDE GLU 90 Result Comment: MANAGEMENT OF PATIENT CARE PER NURSING PROTOCOL Performed By: #### L501.080 #### [facility] [place] [address] BASIC METABOLIC Collected: 07/08/2018 Status: F Source: INGE PROFILE (BMP) 5:28 AM [facility] REPOSITORY TYPE CODE TESTS RESULT OUT OF [...] GAP 6 Performed By: #### L500.2500 #### [facility] [address] [place], [address] CBC W/DIFF, AUTOMATED Collected: 07/08/2018 Status: F Source: [place] 5:28 AM [facility] REPOSITORY TYPE CODE TESTS RESULT OUT OF [...] Lymph 1.88 Performed By: #### L100.0100 #### [facility] [address] [facility] [address] [facility] [address] PROTHROMBIN TIME W/INR Collected: 07/08/2018 Status: F Source: [place] 5:28 AM [facility] REPOSITORY TYPE CODE TESTS RESULT OUT OF RANGE REFERENCE UNITS LAB L300.4150 11.7-14.9 SECONDS High PROTIME 20.4 LAB L300.4200 Normal INR 1.7 Performed By: #### L300.3900, L300.4310 #### [facility] [address] [facility] [address] PARTIAL THROMBOPLAST Collected: 07/08/2018 Status: F Source: [place] TIME 5:28 AM [facility] REPOSITORY TYPE CODE TESTS RESULT OUT OF REFERENCE UNITS RANGE LAB L300.4310 24.1-36.2 Seconds High PTT 38.0 Performed By: #### L300.3900, L300.4310 #### [facility] [place], [address] BEDSIDE GLUCOSE Collected: 07/07/2018 Status: F Source: [place] 10:21 PM [facility] REPOSITORY TYPE CODE TESTS RESULT OUT OF RANGE REFERENCE UNITS LAB L501.080 70-110 mg/dL Normal BEDSIDE GLU 103 Result Comment: MANAGEMENT OF PATIENT CARE PER NURSING PROTOCOL Performed By: #### L501.080 #### [facility] Point of Care [address] [place] [address] HISTORY AND PHYSICAL Observed: 07/07/2018 Status: F Source: INGE EXAM 8:54 PM [facility] REPOSITORY [facility] Medical Records Department [address] [place], [place] [address] [place] [address] History and Physical 07/07/18 1544 MR#: [id number] Acct: [id number] Name: NO MUNIZ Rep #: [id number] : 1940 78 From: Claudia Cruz MD PCP: Latia Chapa, GUMMED TAPE PRESS OPERATOR-C Status: ADM DEISY Y Location: [place] [address] Problem List (1) Chest pain Status: Acute [...] surgery Psychiatric History: No pertinent psych hx 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 Code Visit OBSV E AND M: 14596 Initial observation care L3 Procedures: 30405 Advncd Care Plan 30 Min 07/07/182053 <Electronically signed by Claudia Cruz MD> Date Claudia Cruz MD Cosigner Signature: Date (if applicable) CC: GUMMED TAPE PRESS OPERATOR-C Latia Chapa; Claudia Cruz MD Signed TROPONIN-I Collected: 07/07/2018 Status: F Source: INGE 7:11 PM [facility] REPOSITORY Order Comment: 'TROP' Serial specimen #1, #2 or #3: 3 TYPE CODE TESTS RESULT OUT OF RANGE REFERENCE UNITS LAB L501.4010 <0.045 ng/mL Normal < 0.015 TROPONIN-I Result Comment: TROPONIN-I EXPECTED VALUES <0.045 Negative 0.045 - 0.590 Consistent with Cardiac Damage > OR = 0.600 Critical Value Not every elevated troponin is indicative of PR. These values should be used with clinical judgement in examining the patient's clinical picture for diagnosis. To establish a diagnosis of PR versus myocardial injury, there must be a demonstrated rise and/or fall in the troponin values, in addition to ischemic symptoms, EKG changes, new regional wall motion abnormality, and/or angiographical evidence. PLEASE NOTE: REFERENCE RANGES EDITED 18 Performed By: #### L501.4010 #### [facility] [address] [place], [place], [address] BEDSIDE GLUCOSE Collected: 07/07/2018 Status: F Source: [place] 4:47 PM [facility] REPOSITORY TYPE CODE TESTS RESULT OUT OF RANGE REFERENCE UNITS LAB L501.080 70-110 mg/dL Normal BEDSIDE GLU 89 Result Comment: MANAGEMENT OF PATIENT CARE PER NURSING PROTOCOL Performed By: #### L501.080 #### [facility] Point of Care [address] [place], [place] [address] TROPONIN-I Collected: 07/07/2018 Status: F Source: [place] 4:23 PM [facility] REPOSITORY Order Comment: 'TROP' Serial specimen #1, #2 or #3: 2 TYPE CODE TESTS RESULT OUT OF RANGE REFERENCE UNITS LAB L501.4010 <0.045 ng/mL Normal < 0.015 TROPONIN-I Result Comment: TROPONIN-I EXPECTED VALUES <0.045 Negative 0.045 - 0.590 Consistent with Cardiac Damage > OR = 0.600 Critical Value Not every elevated troponin is indicative of PR. These values should be used with clinical judgement in examining the patient's clinical picture for diagnosis. To establish a diagnosis of PR versus myocardial injury, there must be a demonstrated rise and/or fall in the troponin values, in addition to ischemic symptoms, EKG changes, new regional wall motion abnormality, and/or angiographical evidence. PLEASE NOTE: REFERENCE RANGES EDITED 18 Performed By: #### L501.4010 #### [facility] [address] [place], [address] SHOULDER MIN 2 VIEWS Observed: 07/07/2018 Status: F Source: [place] 4:13 PM [facility] Imaging Services [address] [place] [address] Shoulder min 2 Views MR#: [id number] Acct: [id number] Name: NO MUNIZ Rep #: [id number] : 1940 F 78 From: Luisito Harper DO PCP: HIMANSHU Gill Status: ADM DEISY Study: Shoulder min 2 Views Date of Exam: 07/07/18 Exam# [id number] Ordering Dr: Claudia Cruz MD STUDY: X-RAY [...] Luisito Harper DO at 17:17 EDT Tel [phone], Service support , CC: GUMMED TAPE PRESS OPERATOR-C Latia Chapa; Claudia Cruz MD [employer] Consultant: Signed EMERGENCY DEPARTMENT Observed: 07/07/2018 Status: F Source: [place] SUMMARY 3:04 PM [facility] Medical Records Department [address] [place] [address] Emergency Department Summary 07/07/18 1500 MR#: [id number] Acct: [id number] Name: NO MUNIZ Rep #: [id number] : 1940 78 From: Tello Valdez MD [...] vessel bypass surgery 10 years ago at [facility]. She has history of type 2 diabetes [...] 64 with a left bundle branch block. [place] interval is normal. There is no acute [...] of hypercholesterolemia This note was generated with [employer] dictation software. It may contain incorrect words, spelling, and punctuation that were not noted in review of the chart prior to signing ED Disposition - Plan for ED Patient: Chief Complaint: Chest Pain Referrals: Latia Chapa NP-C [Primary Care Provider] - What to do if you have Problems For any increased pain, shortness of breath, bleeding, nausea or vomiting, chest pain, or any unexpected problems, contact your Primary Care Provider. Call [facility] ([phone]) or report to the closest Emergency Room. Call 911 if necessary. 07/07/18 1504 <Electronically signed by Tello Valdez MD> Date Tello Valdez MD Cosigner Signature (If Indicated): Date CC: GUMMED TAPE PRESS OPERATORKristopher Chapa CHEST 1 VIEW Observed: 07/07/2018 Status: F Source: [place] (PORTABLE) 1:27 PM [facility] Imaging Services [address] [place] [address] Chest 1 View (Portable) MR#: [id number] Acct: [id number] Name: NO MUNIZ Rep #: [id number] : 1940 F 78 From: Jens Thurman MD PCP: HIMANSHU Gill Status: PRE ER Study: Chest 1 View (Portable) Date of Exam: 07/07/18 Exam# [id number] Ordering Dr: Tello Valdez MD STUDY: X-RAY [...] Jens Thurman MD at 13:54 EDT Tel [phone], Service support , CC: HIMANSHU Chapa; Tello Valdez MD [employer] Consultant: Signed CBC W/DIFF, AUTOMATED Collected: 07/07/2018 Status: F Source: [place] 1:14 PM [facility] RE[facility] TYPE CODE TESTS RESULT OUT OF [...] Lymph 2.52 Performed By: #### L100.0100 #### [facility] [address] [place], [place] [address]. [place], [place], [address] BASIC METABOLIC Collected: 07/07/2018 Status: F Source: [place] PROFILE (BMP) 1:14 PM [facility] REPOSITORY TYPE CODE TESTS RESULT OUT OF [...] 9 Performed By: #### L500.2500, L501.4010 #### [facility] [address] [place], [address] TROPONIN-I Collected: 07/07/2018 Status: F Source: [place] 1:14 PM [facility] REPOS[facility] TYPE CODE TESTS RESULT OUT OF RANGE REFERENCE UNITS LAB L501.4010 <0.045 ng/mL Normal < 0.015 TROPONIN-I Result Comment: TROPONIN-I EXPECTED VALUES <0.045 Negative 0.045 - 0.590 Consistent with Cardiac Damage > OR = 0.600 Critical Value Not every elevated troponin is indicative of PR. These values should be used with clinical judgement in examining the patient's clinical picture for diagnosis. To establish a diagnosis of PR versus myocardial injury, there must be a demonstrated rise and/or fall in the troponin values, in addition to ischemic symptoms, EKG changes, new regional wall motion abnormality, and/or angiographical evidence. PLEASE NOTE: REFERENCE RANGES EDITED 18 Performed By: #### L500.2500, L501.4010 #### [facility] [address] [place], [address] 12 LEAD ELECTROCARDIOGRAM Observed: 05/27/2018 Status: F Source: [place] 1:16 PM [facility] Cardiovascular Services [address] [place] [address] 12 Lead EKG 05/24/18 1722 MR#: [id number] Acct: [id number] Name: NO MUNIZ Rep #: [id number] : 1940 78 From: Shan Henry MD [...] ECG Confirmed by CARL EL, SHAN ([id number]), greeting card editor DAMIAN MCCRACKEN ([id number]) on 05/27/2018 1:16:14 PM Referred By: VIOLET Confirmed By:SHAN HENRY MD 05/27/18 1316 Date Shan Henry MD CC: GUMMED TAPE PRESS OPERATOR-C Latia Chapa; Belgica Mtz MD Signed CMP Collected: 05/26/2018 Status: F Source: [facility] 9:40 AM [facility] REPOSITORY TYPE CODE TESTS [...] #### CMP, TSH, GFR, FT4, VIDH #### [address] [address] #### CBC, ADIFF, ANEU #### [place] [address] [place], [place] [address] TSH Collected: 05/26/2018 Status: F Source: [facility] 9:40 AM [facility] REPOS[facility] TYPE CODE TESTS RESULT OUT OF RANGE REFERENCE UNITS LAB TSH(LOINC) 0.36-3.74 mcIU/mL TSH 2.03 Performed By: #### CMP, TSH, GFR, FT4, VIDH #### [address] [address] #### CBC, ADIFF, ANEU #### [address] [place], [place] [address] .GFR Collected: 05/26/2018 Status: F Source: [facility] 9:40 AM [facility] REPOSITORY TYPE CODE TESTS RESULT OUT OF REFERENCE UNITS RANGE LAB GFRAA(LOINC ml/min/1.73 ) sqm GFR 46 [place] Result Comment: GFR Population mean for , [...] #### CMP, TSH, GFR, FT4, VIDH #### [place] [address] #### CBC, ADIFF, ANEU #### [address] [place], [place] [address] FT4 Collected: 05/26/2018 Status: F Source: [facility] 9:40 AM [facility] REPOSITORY TYPE CODE TESTS RESULT OUT OF RANGE REFERENCE UNITS LAB FT4(LOINC) 0.76-1.46 ng/dL Free T4 0.99 Performed By: #### CMP, TSH, GFR, FT4, VIDH #### [place] [address] #### CBC, ADIFF, ANEU #### [address] [place], [place] [address] CBC Collected: 05/26/2018 Status: F Source: [facility] 9:40 AM [facility] REPOSITORY TYPE CODE TESTS [...] #### CMP, TSH, GFR, FT4, VIDH #### [place] [address] #### CBC, ADIFF, ANEU #### [address] [address] .AUTO DIFF Collected: 05/26/2018 Status: F Source: [facility] 9:40 AM [facility] REPOSIT[facility] TYPE CODE TESTS RESULT OUT OF [...] #### CMP, TSH, GFR, FT4, VIDH #### [place] [address] #### CBC, ADIFF, ANEU #### [address] [address] .NEUABS Collected: 05/26/2018 Status: F Source: [facility] 9:40 AM [facility] REPOSIT[facility] TYPE CODE TESTS RESULT OUT OF REFERENCE UNITS RANGE LAB ANEU(LOINC) 2.85-6.16 10 3/mcL High Neutrophil, 8.30 Absolute Performed By: #### CMP, TSH, GFR, FT4, VIDH #### [place] [address] #### CBC, ADIFF, ANEU #### [address] [place], [place] [address] VIDH Collected: 05/26/2018 Status: F Source: [facility] 9:40 AM [facility] REPOSITORY TYPE CODE TESTS RESULT OUT OF RANGE REFERENCE UNITS LAB VIDH(LOINC) ng/mL Vit. D 73 25-Hydroxy Result Comment: Interpretive Values Based on Total 25(OH)D: Severe Deficiency <20 ng/mL Mild to Moderate Deficiency 20-30 ng/mL Optimum Levels 30-100 ng/mL Toxicity Possible >100 ng/mL Performed By: #### CMP, TSH, GFR, FT4, VIDH #### [facility] [address] [place] [address] #### CBC, ADIFF, ANEU #### [facility] [address] [place], [place] [address] EMERGENCY DEPARTMENT Observed: 05/25/2018 Status: F Source: [facility] 12:19 AM [facility] Medical Records Department [address] [place] [address] Emergency Department Summary 05/24/18 1523 MR#: [id number] Acct: [id number] Name: NO MUNIZ Rep #: [id number] : 1940 78 From: Belgica Mtz MD PCP: HIMANSHU Gill Status: DEP ER - ER Visit Summary [...] extremity contusion This note was generated with [employer] dictation software. It may contain incorrect words, spelling, and punctuation that were not noted in review of the chart prior to signing ED Disposition - Plan for ED Patient: Chief Complaint: Fall Referrals: Latia Chapa, GUMMED TAPE PRESS OPERATOR-C [Primary Care Provider] - What to do if you have Problems For any increased pain, shortness of breath, bleeding, nausea or vomiting, chest pain, or any unexpected problems, contact your Primary Care Provider. Call [facility] ([phone]) or report to the closest Emergency Room. Call 911 if necessary. 05/25/18 0019 <Electronically signed by Belgica Mtz MD> Date Belgica Mtz MD Cosigner Signature (If Indicated): Date CC: HIMANSHU Chapa DISCHARGE INSTRUCTION Observed: 05/24/2018 Status: F Source: [place] 8:00 PM [facility] RE[facility]IT[facility] Medical Records Department [address] [place] [address] Discharge Instruction 05/24/181957 MR#: [id number] Acct: [id number] Name: NO MUNIZ Rep #: [id number] : 1940 78 From: Belgica Mtz MD [...] your Primary Care Provider. Call [facility] ([phone]) or report to the closest Emergency Room. Call 911 if necessary. 05/24/181999 <Electronically signed by Belgica Mtz MD> Date Belgica Mtz MD Cosigner Signature (If Indicated): Date CC: HIMANSHU Chapa URINALYSIS, COMPLETE Collected: 05/24/2018 Status: F Source: [place] 6:11 PM [facility] RE[facility] Order Comment: Order Date: 09/11/18 How was Urine Obtained? CATHETER SPECIMEN TYPE [...] URINE SEEN Performed By: #### L400.0001 #### [facility] [address] [place], [address] CBC W/DIFF, AUTOMATED Collected: 05/24/2018 Status: F Source: [place] 5:58 PM [facility] TYPE CODE TESTS RESULT OUT OF [...] Lymph 2.58 Performed By: #### L100.0100 #### [facility] [address] [place], [address] BASIC METABOLIC Collected: 05/24/2018 Status: F Source: [place] PROFILE ([facility]) 5:58 PM [facility] RE[facility] TYPE CODE TESTS RESULT OUT OF [...] GAP 8 Performed By: #### L500.2500 #### [facility] [address] [facility] [place], [address] BRAIN/HEAD WITHOUT Observed: 05/24/2018 Status: F Source: [place] CONTRAST 3:21 PM [facility] Imaging Services [address] [place] [address] Brain/Head without Contrast MR#: [id number] Acct: [id number] Name: NO MUNIZ John Rep #: [id number] : 1940 F 78 From: Jens Thurman MD PCP: Latia Chapa, GUMMED TAPE PRESS OPERATOR-C Status: REG ER Study: Brain/Head without Contrast Date of Exam: 05/24/18 Exam# [id number] Ordering Dr: Belgica Mtz MD STUDY: CT [...] Jens Thurman MD at 16:01 EDT Tel [phone], Service support , CC: HIMANSHU Chapa; Belgica Mtz MD [employer] Consultant: Signed SPINE CERVICAL Observed: 05/24/2018 Status: F Source: [place] WITHOUT CONTRAS 3:21 PM [facility] Imaging Services [address] [place] [address] [place] [address] Spine Cervical without Contras MR#: [id number] Acct: [id number] Name: NO MUNIZ Rep #: [id number] : 1940 F 78 From: Jens Thurman MD PCP: HIMANSHU Gill Status: REG ER Study: Spine Cervical without Contras Date of Exam: 05/24/18 Exam# [id number] Ordering Dr: Belgica Mtz MD STUDY: CT [...] Jens Thurman MD at 16:04 EDT Tel [phone], Service support , CC: JESU-C Latia Chapa; Belgica Mtz MD [employer] Consultant: Signed KNEE 4 OR MORE Observed: 05/24/2018 Status: F Source: [place] VIEWS 3:21 PM [facility] Imaging Services [address] [place] [address] Knee 4 or More Views MR#: [id number] Acct: [id number] Name: NO MUNIZ Rep #: [id number] : 1940 F 78 From: Yasir [place] MD PCP: Latia Chapa, JESU-C Status: REG ER Study: Knee 4 or More Views Date of Exam: 05/24/18 Exam# [id number] Ordering Dr: Belgica Mtz MD STUDY: X-RAY [...] 16:42 EDT , Service support , CC: GUMMED TAPE PRESS OPERATOR-Loli Chapa; Belgica Mtz MD [employer] Consultant: Signed HUMERUS MIN 2 VIEWS Observed: 05/24/2018 Status: F Source: [place] 3:21 PM [facility] Imaging Services [address] [place] [address] Humerus min 2 Views MR#: [id number] Acct: [id number] Name: NO MUNIZ Rep #: [id number] : 1940 F 78 From: Yasir [place] MD PCP: HIMANSHU Gill Status: REG ER Study: Humerus min 2 Views Date of Exam: 05/24/18 Exam# [id number] Ordering Dr: Belgica Mtz MD STUDY: X-RAY [...] , CC: HIMANSHU Chapa; Belgica Mtz MD [employer] Consultant: Signed CHEST PA AND LATERAL Observed: 05/24/2018 Status: F Source: [place] 3:21 PM [facility] Imaging Services [address] [place] [address] Chest PA and Lateral MR#: [id number] Acct: [id number] Name: NO MUNIZ Rep #: [id number] : 1940 F 78 From: Yasir [place] MD PCP: HIMANSHU Gill Status: REG ER Study: Chest PA and Lateral Date of Exam: 05/24/18 Exam# [id number] Ordering Dr: Belgica Mtz MD STUDY: X-RAY CHEST REASON FOR EXAM: Female, 78 years old. FALL PAIN TECHNIQUE: Frontal and lateral views of the chest. COMPARISON: 8 FINDINGS: Chronic appearing increased interstitial lung markings. [...] , CC: HIMANSHU Chapa; Belgica Mtz MD [employer] Consultant: Signed FOREARM 2 VIEWS Observed: 05/24/2018 Status: F Source: [place] 3:21 PM [facility] REPOSITORY [facility] Imaging Services [address] [place] [address] Forearm 2 Views MR#: [id number] Acct: [id number] Name: NO MUNIZ Rep #: [id number] : 1940 F 78 From: Yasir [place] MD PCP: HIMANSHU Gill Status: REG ER Study: Forearm 2 Views Date of Exam: 05/24/18 Exam# [id number] Ordering Dr: Belgica Mtz MD STUDY: X-RAY [...] 16:45 EDT , Service support , CC: HIMANSHU Chapa; Belgica Mtz MD [employer] Consultant: Signed 12 LEAD ELECTROCARDIOGRAM Observed: 04/25/2018 Status: F Source: [place] 3:25 PM [facility] REPOSITORY [facility] Cardiovascular Services [address] [place] [address] 12 Lead EKG 04/14/18 0724 MR#: [id number] Acct: [id number] Name: NO MUNIZ Rep #: [id number] : 1940 78 From: Shan Henry MD Attending Dr: Anant Rodriguez Status: DIS DEISY Ordering Dr: Blas Angeles MD Date: 04/14/18 Location: MS3 Sex: F C Admitted: 04/13/18 [...] ECG Confirmed by SHAN HENRY MD ([id number]), greeting card editor DAMIAN MCCRACKEN ([id number]) on 04/25/2018 3:25:29 PM Referred By: KARTHIK Confirmed By:SHAN HENRY MD 04/25/18 1525 Date Shan Henry MD CC: GUMMED TAPE PRESS OPERATOR-C Latia Chapa; Anant Rodriguez; Blas Angeles M.D. Signed DISCHARGE SUMMARY Observed: 04/19/2018 Status: F Source: [place] 2:26 PM [facility] Medical Records Department [address] [place] [address] Discharge Summary 04/19/18 1359 MR#: [id number] Acct: [id number] Name: NO MUNIZ Rep #: [id number] : 1940 78 From: Anant Rodriguez MD PCP: HIMANSHU Gill Status: ADM DEISY Y Location: MS3 BG008-7 Discharge Date and Diagnosis Date of Admission: [...] Jens Thurman MD at 13:13 EDT Tel [phone], Service support , Chest CTA 04/13/18 13:51 IMPRESSION: Several small peripheral intraluminal filling defects involving pulmonary branches as described. Possible solid left renal mass. 7.8 mm x 4.9 mm noncalcified nodule in the right upper lobe adjacent to the right minor fissure. Enlarged right lobe of the thyroid. Electronically Signed: Jens Thurman MD at 14:29 EDT Tel [phone], Service support , Cervical Spine MRI 04/13/18 [...] to be stable to be discharged to [facility] facility. She continued to complain of neck [...] evaluate the patient and recommended placement to [facility] facility. Patient discharged to [facility] facility in a stable medical condition, discharged [...] BIDCM #30 tab Primary Care Physician: Latia Chapa NP-C [Primary Care Provider] - Please follow up with your Primary Care Physician in: 1-2 weeks. Disposition: Detention facility Minutes spent on discharge:: 32 Patient Condition:: Stable Medical Necessity - Tobacco Use Smoking Status: Never smoker Meaningful Use Info Meaningful Use Diagnoses (Choose all that apply): None applicable Code Visit Inpatient E AND M: 76779 Disch Hosp 04/19/18 1426 <Electronically signed by Anant Rodriguez MD> Date Anant Rodriguez MD Cosigner Signature (if applicable): Date CC: GUMMED TAPE PRESS OPERATOR-C Latia Chapa; Anant Rodriguez Signed BEDSIDE GLUCOSE Collected: 04/19/2018 Status: F Source: [place] 12:01 PM [facility] REPOSITORY TYPE CODE TESTS RESULT OUT OF REFERENCE UNITS RANGE LAB L501.080 70-110 mg/dL High BEDSIDE GLU 213 Result Comment: MANAGEMENT OF PATIENT CARE PER NURSING PROTOCOL Performed By: #### L501.080 #### [facility] Point of Care [address] [place] [address]. [place] [address] TRANSFER TO EXTENDED Observed: 04/19/2018 Status: F Source: [place] CARE 9:43 AM [facility] Medical Records Department [address] [place] [address] [place] [address] Transfer to [facility] Care MR#: [id number] Acct: [id number] Name: NO MUNIZ Rep #: [id number] : 1940 78 From: Anant Rodriguez MD PCP: HIMANSHU Gill Status: ADM DEISY NO MUNIZ (Patient) (Health Ins. Claim No.) (Day of Discharge to Facility) Certification of patient admission REQUIRED AT TIME OF ADMISSION. I CERTIFY THAT POST-HOSPITAL ECF SERVICES ARE REQUIRED TO BE GIVEN ON AN IN-PATIENT BASIS BECAUSE OF THE ABOVE NAMED PATIENT'S NEED FOR CORRECTION CARE ON A CONTINUING BASIS FOR THE [...] Up Care Primary Care Physician: Latia Chapa, GUMMED TAPE PRESS OPERATOR-C [Primary Care Provider] - Please follow up with your Primary Care Physician in: 1-2 weeks. 04/19/18 0943 <Electronically signed by Anant Rodriguez MD> Date Anant Rodriguez MD CC: GUMMED TAPE PRESS OPERATOR-C Latia Olivaskeith GoldbergEduard Signed BEDSIDE GLUCOSE Collected: 04/19/2018 Status: F Source: [place] 6:09 AM [facility] REPOSITORY TYPE CODE TESTS RESULT OUT OF REFERENCE UNITS RANGE LAB L501.080 70-110 mg/dL High BEDSIDE GLU 163 Result Comment: MANAGEMENT OF PATIENT CARE PER NURSING PROTOCOL Performed By: #### L501.080 #### [facility] Point of Care [address] [place] [address] BEDSIDE GLUCOSE Collected: 04/18/2018 Status: F Source: [place] 10:08 PM [facility] REPOS[facility]ORY TYPE CODE TESTS RESULT OUT OF RANGE REFERENCE UNITS LAB L501.080 70-110 mg/dL Normal BEDSIDE GLU 98 Result Comment: MANAGEMENT OF PATIENT CARE PER NURSING PROTOCOL Performed By: #### L501.080 #### [facility] Point of Care [address] [place] [address] BEDSIDE GLUCOSE Collected: 04/18/2018 Status: F Source: [place] 5:03 PM [facility] TYPE CODE TESTS RESULT OUT OF REFERENCE UNITS RANGE LAB L501.080 70-110 mg/dL High BEDSIDE GLU 194 Result Comment: MANAGEMENT OF PATIENT CARE PER NURSING PROTOCOL Performed By: #### L501.080 #### [facility] Point of Care [address] [place] [address] BEDSIDE GLUCOSE Collected: 04/18/2018 Status: F Source: [place] 2:28 PM [facility] RE[facility] TYPE CODE TESTS RESULT OUT OF REFERENCE UNITS RANGE LAB L501.080 70-110 mg/dL High BEDSIDE GLU 211 Result Comment: MANAGEMENT OF PATIENT CARE PER NURSING PROTOCOL Performed By: #### L501.080 #### [facility] Point of Care [address] [place] [address] 12 LEAD ELECTROCARDIOGRAM Observed: 04/18/2018 Status: F Source: [place] 1:42 PM [facility] Cardiovascular Services [address] [place] [address] 12 Lead EKG 04/13/18 1321 MR#: [id number] Acct: [id number] Name: NO MUNIZ Rep #: [id number] : 1940 78 From: Jassi Lord MD Attending Dr: Anant Rodriguez Status: ADM [...] ECG Confirmed by JAIME EL, JASSI ([id number]), greeting card editor DAMIAN MCCRACKEN (56) on 04/18/2018 1:41:44 PM Referred By: LIAM Confirmed By:JASSI LORD MD 04/18/18 1341 Date Jassi Lord MD CC: GUMMED TAPE PRESS OPERATOR-C Latia Chapa; Anant Rodriguez; Elin Barboza DO Signed BEDSIDE GLUCOSE Collected: 04/18/2018 Status: F Source: [place] 11:59 AM [facility] RE[facility] TYPE CODE TESTS RESULT OUT OF RANGE REFERENCE UNITS LAB L501.080 70-110 mg/dL Normal BEDSIDE GLU 71 Result Comment: MANAGEMENT OF PATIENT CARE PER NURSING PROTOCOL Performed By: #### L501.080 #### [facility] Point of Care [address] [place], [place] [address] BEDSIDE GLUCOSE Collected: 04/18/2018 Status: F Source: [place] 6:52 AM [facility] REPOS[facility] TYPE CODE TESTS RESULT OUT OF RANGE REFERENCE UNITS LAB L501.080 70-110 mg/dL Normal BEDSIDE GLU 100 Result Comment: MANAGEMENT OF PATIENT CARE PER NURSING PROTOCOL Performed By: #### L501.080 #### [facility] Point of Care [address] [place] [address] BEDSIDE GLUCOSE Collected: 04/17/2018 Status: F Source: [place] 10:44 PM [facility] REPOS[facility] TYPE CODE TESTS RESULT OUT OF REFERENCE UNITS RANGE LAB L501.080 70-110 mg/dL High BEDSIDE GLU 148 Result Comment: MANAGEMENT OF PATIENT CARE PER NURSING PROTOCOL Performed By: #### L501.080 #### [facility] Point of Care [address] [place] [address] BEDSIDE GLUCOSE Collected: 04/17/2018 Status: F Source: INGE 4:20 PM [facility] TYPE CODE TESTS RESULT OUT OF REFERENCE UNITS RANGE LAB L501.080 70-110 mg/dL High BEDSIDE GLU 146 Result Comment: MANAGEMENT OF PATIENT CARE PER NURSING PROTOCOL Performed By: #### L501.080 #### [facility] Point of Care [address] [place] [address] BEDSIDE GLUCOSE Collected: 04/17/2018 Status: F Source: [place] 11:16 AM [facility] RE[facility] TYPE CODE TESTS RESULT OUT OF REFERENCE UNITS RANGE LAB L501.080 70-110 mg/dL High BEDSIDE GLU 212 Result Comment: MANAGEMENT OF PATIENT CARE PER NURSING PROTOCOL Performed By: #### L501.080 #### [facility] Point of Care [address] [place] [address] BEDSIDE GLUCOSE Collected: 04/17/2018 Status: F Source: IN[place] 7:40 AM [facility] TYPE CODE TESTS RESULT OUT OF RANGE REFERENCE UNITS LAB L501.080 70-110 mg/dL Normal BEDSIDE GLU 101 Result Comment: MANAGEMENT OF PATIENT CARE PER NURSING PROTOCOL Performed By: #### L501.080 #### [facility] Point of Care [address] [place] [address] BEDSIDE GLUCOSE Collected: 04/17/2018 Status: F Source: INGE 3:55 AM [facility] TYPE CODE TESTS RESULT OUT OF RANGE REFERENCE UNITS LAB L501.080 70-110 mg/dL Normal BEDSIDE GLU 100 Result Comment: MANAGEMENT OF PATIENT CARE PER NURSING PROTOCOL Performed By: #### L501.080 #### [facility] Point of Care [address] [place] [address] BEDSIDE GLUCOSE Collected: 04/16/2018 Status: F Source: [place] 9:06 PM [facility] TYPE CODE TESTS RESULT OUT OF REFERENCE UNITS RANGE LAB L501.080 70-110 mg/dL High BEDSIDE GLU 154 Result Comment: MANAGEMENT OF PATIENT CARE PER NURSING PROTOCOL Performed By: #### L501.080 #### [facility] Point of Care [address] [place] [address] BEDSIDE GLUCOSE Collected: 04/16/2018 Status: F Source: [place] 4:50 PM [facility] TYPE CODE TESTS RESULT OUT OF RANGE REFERENCE UNITS LAB L501.080 70-110 mg/dL Normal BEDSIDE GLU 99 Result Comment: MANAGEMENT OF PATIENT CARE PER NURSING PROTOCOL Performed By: #### L501.080 #### [facility] Laboratory Point of Care [address] [place] [address] BEDSIDE GLUCOSE Collected: 04/16/2018 Status: F Source: INGE 11:33 AM [facility] REPOSITORY TYPE CODE TESTS RESULT OUT OF REFERENCE UNITS RANGE LAB L501.080 70-110 mg/dL High BEDSIDE GLU 169 Result Comment: MANAGEMENT OF PATIENT CARE PER NURSING PROTOCOL Performed By: #### L501.080 #### [facility] Laboratory Point of Care [address] [place] [address] BEDSIDE GLUCOSE Collected: 04/16/2018 Status: F Source: INGE 8:12 AM [facility] REPOSITORY TYPE CODE TESTS RESULT OUT OF REFERENCE UNITS RANGE LAB L501.080 70-110 mg/dL High BEDSIDE GLU 129 Result Comment: MANAGEMENT OF PATIENT CARE PER NURSING PROTOCOL Performed By: #### L501.080 #### [facility] Laboratory Point of Care [address] [place] [address] BEDSIDE GLUCOSE Collected: 04/15/2018 Status: F Source: INGE 10:06 PM [facility] REPOSITORY TYPE CODE TESTS RESULT OUT OF REFERENCE UNITS RANGE LAB L501.080 70-110 mg/dL High BEDSIDE GLU 297 Result Comment: MANAGEMENT OF PATIENT CARE PER NURSING PROTOCOL Performed By: #### L501.080 #### [facility] Laboratory Point of Care [address] [place] [address] BEDSIDE GLUCOSE Collected: 04/15/2018 Status: F Source: INGE 5:08 PM [facility] REPOSITORY TYPE CODE TESTS RESULT OUT OF REFERENCE UNITS RANGE LAB L501.080 70-110 mg/dL High BEDSIDE GLU 287 Result Comment: MANAGEMENT OF PATIENT CARE PER NURSING PROTOCOL Performed By: #### L501.080 #### [facility] Laboratory Point of Care [address] [place] [address] BEDSIDE GLUCOSE Collected: 04/15/2018 Status: F Source: INGE 12:04 PM [facility] REPOSITORY TYPE CODE TESTS RESULT OUT OF REFERENCE UNITS RANGE LAB L501.080 70-110 mg/dL High BEDSIDE GLU 386 Result Comment: MANAGEMENT OF PATIENT CARE PER NURSING PROTOCOL Performed By: #### L501.080 #### [facility] Laboratory Point of Care [address] [place] [address] BEDSIDE GLUCOSE Collected: 04/15/2018 Status: F Source: INGE 7:50 AM [facility] REPOSITORY TYPE CODE TESTS RESULT OUT OF REFERENCE UNITS RANGE LAB L501.080 70-110 mg/dL High BEDSIDE GLU 346 Result Comment: MANAGEMENT OF PATIENT CARE PER NURSING PROTOCOL Performed By: #### L501.080 #### [facility] Point of Care [address] [place] [address] BEDSIDE GLUCOSE Collected: 04/14/2018 Status: F Source: INGE 9:01 PM [facility] REPOSITORY TYPE CODE TESTS RESULT OUT OF REFERENCE UNITS RANGE LAB L501.080 70-110 mg/dL High BEDSIDE GLU 415 Result Comment: MANAGEMENT OF PATIENT CARE PER NURSING PROTOCOL Performed By: #### L501.080 #### [facility] Laboratory Point of Care [address] [place] [address] BEDSIDE GLUCOSE Collected: 04/14/2018 Status: F Source: INGE 5:37 PM [facility] REPOSITORY TYPE CODE TESTS RESULT OUT OF REFERENCE UNITS RANGE LAB L501.080 70-110 mg/dL High BEDSIDE GLU 415 Result Comment: MANAGEMENT OF PATIENT CARE PER NURSING PROTOCOL Performed By: #### L501.080 #### [facility] Point of Care [address] [place] [address] BEDSIDE GLUCOSE Collected: 04/14/2018 Status: F Source: INGE 12:34 PM [facility] REPOSITORY TYPE CODE TESTS RESULT OUT OF REFERENCE UNITS RANGE LAB L501.080 70-110 mg/dL High BEDSIDE GLU 422 Result Comment: MANAGEMENT OF PATIENT CARE PER NURSING PROTOCOL Performed By: #### L501.080 #### [facility] Point of Care [address] [place] [address] BEDSIDE GLUCOSE Collected: 04/14/2018 Status: F Source: INGE 7:37 AM [facility] REPOSITORY TYPE CODE TESTS RESULT OUT OF REFERENCE UNITS RANGE LAB L501.080 70-110 mg/dL High BEDSIDE GLU 375 Result Comment: MANAGEMENT OF PATIENT CARE PER NURSING PROTOCOL Performed By: #### L501.080 #### [facility] Laboratory Point of Care [address] [place] [address] CRP Collected: 04/14/2018 Status: F Source: [place] 5:22 AM [facility] REPOSITORY TYPE CODE TESTS RESULT OUT OF RANGE REFERENCE UNITS LAB L501.6710 0.0-3.0 mg/L High 17.10 C-REACTIVE PROT Result Comment: C-Reactive Protein (CRP) provides useful information for the diagnosis, therapy and monitoring of inflammatory processes and associated diseases. For the evaluation of Relative Risk for Cardiovascular Disease, a High Sensitivity CRP (HSCRP) should be ordered. Performed By: #### L501.6710 #### [facility] [address] [place], [address] ERYTHROCYTE SED RATE Collected: 04/14/2018 Status: F Source: [place] 5:22 AM [facility] REPOSITORY TYPE CODE TESTS RESULT OUT OF RANGE REFERENCE UNITS LAB L102.0000 0-30 mm/hr High SED RATE 55 Performed By: #### L101.9900 #### [facility] [address] [place], [address] BEDSIDE GLUCOSE Collected: 04/13/2018 Status: F Source: INGE 9:30 PM [facility] REPOSITORY TYPE CODE TESTS RESULT OUT OF REFERENCE UNITS RANGE LAB L501.080 70-110 mg/dL High BEDSIDE GLU 208 Result Comment: MANAGEMENT OF PATIENT CARE PER NURSING PROTOCOL Performed By: #### L501.080 #### [facility] Point of Care [address] [place] [address] HISTORY AND PHYSICAL Observed: 04/13/2018 Status: F Source: [place] EXAM 9:16 PM [facility] REPOSITORY [facility] Medical Records Department [address] [place] [address] History and Physical 04/13/181948 MR#: [id number] Acct: [id number] Name: NO MUNIZ Rep #: [id number] : 1940 78 From: Blas Angeles MD PCP: HIMANSHU Gill Status: ADM DEISY Y Location: [place] [address] ADDENDUM by Blas Angeles M.D. 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 2. Incidental finding [...] HTN Code Visit Inpatient E AND M: 47390 Init Hosp L3 04/13/18 2017 <Electronically signed by Blas Angeles MD> Date Blas Angeles MD Cosigner Signature: Date (if applicable) CC: [employer] T[employer] PRESS OPERATOR-C Latia Chapa; Blas Angeles M.D. Signed SPINE CERVICAL Observed: 04/13/2018 Status: F Source: [place] (ROUTINE) 4:31 PM [facility] REPOSITORY [facility] Imaging Services [address] [place] [address] Spine Cervical (Routine) MR#: [id number] Acct: [id number] Name: NO MUNIZ Rep #: [id number] : 1940 F 78 From: Adia Mccracken MD PCP: HIMANSHU Gill Status: ADM DEISY Study: Spine Cervical (Routine) Date of Exam: 04/13/18 Exam# [id number] Ordering Dr: Blas Angeles MD STUDY: MRI [...] , CC: HIMANSHU Chapa; Blas Angeles M.D. [employer] Consultant: Signed EMERGENCY DEPARTMENT Observed: 04/13/2018 Status: F Source: [place] SUMMARY 3:36 PM [facility] REPOSITORY [facility] Medical Records Department [address] [place] [address] Emergency Department Summary 04/13/18 1532 MR#: [id number] Acct: [id number] Name: NO MUNIZ Rep #: [id number] : 1940 78 From: Elin Barboza DO [...] who her surgeon was. Patient presents from longterm. Patient also complains of right sided sharp [...] pulmonary emboli] This note was generated with [employer] dictation software. It may contain incorrect words, [...] your Primary Care Provider. Call [facility] ([phone]) or report to the closest Emergency Room. Call 911 if necessary. 04/13/18 1536 <Electronically signed by Elin Barboza DO> Date Elin Barboza DO Cosigner Signature (If Indicated): Date CC: GUM[employer] TAPE PRESS OPERATOR-C Latia Chapa CTA CHEST W/WO Observed: 04/13/2018 Status: F Source: INGE CONTRAST 1:51 PM [facility] REPOSITORY [facility] Imaging Services [address] [place] [address] CTA Chest W/WO Contrast MR#: [id number] Acct: [id number] Name: NO MUNIZ Rep #: [id number] : 1940 F 78 From: Jens Thurman MD PCP: HIMANSHU Gill Status: REG ER Study: CTA Chest W/WO Contrast Date of Exam: 04/13/18 Exam# [id number] Ordering Dr: Elin Barboza DO STUDY: CTA [...] Jens Thurman MD at 14:29 EDT Tel [phone], Service support , CC: HIMANSHU Chapa; Elin Barboza DO [employer] Consultant: Signed CBC W/DIFF, AUTOMATED Collected: 04/13/2018 Status: F Source: INGE 1:20 PM [facility] REPOSITORY TYPE CODE TESTS RESULT OUT OF [...] Lymph 1.76 Performed By: #### L100.0100 #### [facility] [address] [place], [address] BASIC METABOLIC Collected: 04/13/2018 Status: F Source: INGE PROFILE (BMP) 1:20 PM [facility] REPOSITORY TYPE CODE TESTS RESULT OUT OF [...] 9 Performed By: #### L500.2500, L501.4010 #### [facility] Laboratory [facility] [place], [address] TROPONIN-I Collected: 04/13/2018 Status: F Source: INGE 1:20 PM [facility] REPOSITORY TYPE CODE TESTS RESULT OUT OF RANGE REFERENCE UNITS LAB L501.4010 <0.045 ng/mL Normal < 0.015 TROPONIN-I Result Comment: TROPONIN-I EXPECTED VALUES <0.045 Negative 0.045 - 0.590 Consistent with Cardiac Damage > OR = 0.600 Critical Value Not every elevated troponin is indicative of PR. These values should be used with clinical judgement in examining the patient's clinical picture for diagnosis. To establish a diagnosis of PR versus myocardial injury, there must be a demonstrated rise and/or fall in the troponin values, in addition to ischemic symptoms, EKG changes, new regional wall motion abnormality, and/or angiographical evidence. PLEASE NOTE: REFERENCE RANGES EDITED 18 Performed By: #### L500.2500, L501.4010 #### [facility] [address] [place], [address] D-DIMER QUANTITATIVE Collected: 04/13/2018 Status: F Source: [place] (DVT/PE) 1:20 PM [facility] REPOSITORY TYPE CODE TESTS RESULT OUT OF RANGE REFERENCE UNITS LAB L300.8000 0.27-0.49 FEU/ug/m High alert D-DIMER 3.39 QUANT Result Comment: D-Dimer ELEVATED (>0.49): Additional studies and clinical assessments are indicated to conclude diagnosis of: Deep Vein Thrombosis (DVT) or Pulmonary Embolism (PE) CRITICAL VALUE VERIFIED. CALLED TO LAYO JACINTO 04/13/18 Kisha7 Shavon Girard. RESULTS READ BACK BY SAME . Performed By: #### L300.8000 #### [facility] [address] [place], [address] CHEST 1 VIEW Observed: 04/13/2018 Status: F Source: [place] (PORTABLE) 12:56 PM [facility] REPOSITORY [facility] Imaging Services [address] [place] [address] Chest 1 View (Portable) MR#: [id number] Acct: [id number] Name: NO MUNIZ Rep #: [id number] : 1940 F 78 From: Jens Thurman MD PCP: Latia Chapa NP-Loli Status: REG ER Study: Chest 1 View (Portable) Date of Exam: 04/13/18 Exam# [id number] Ordering Dr: Elin Barboza DO STUDY: X-RAY [...] Jens Thurman MD at 13:13 EDT Tel [phone], Service support , CC: HIMANSHU Chapa; Elin Barboza DO [employer] Consultant: Signed GLUCOSE,BEDSIDE Collected: 03/23/2018 Status: F Source: [place] 12:55 PM SYSTEM REPOSITORY TYPE CODE TESTS RESULT OUT OF RANGE REFERENCE UNITS LAB BGLU 70-100 mg/dL High 229 Glucose,Beds destini Result Comment: Test performed by glucose meter. Results may be 10%-15% lower than serum/plasma values. (CLIA ID [id number]) Performed By: #### BGLU #### [facility] [address] [place] [phone] GLUCOSE,BEDSIDE Collected: 03/23/2018 Status: F Source: [place] 6:58 AM SYSTEM REPOSITORY TYPE CODE TESTS RESULT OUT OF RANGE REFERENCE UNITS LAB BGLU 70-100 mg/dL High 282 Glucose,Beds destini Result Comment: Test performed by glucose meter. Results may be 10%-15% lower than serum/plasma values. (CLIA ID [id number]) Performed By: #### BGLU #### [facility] [address] [place] [address] POTASSIUM Collected: 03/23/2018 Status: F Source: [place] 5:50 AM SYSTEM REPOSITORY TYPE CODE TESTS RESULT OUT OF RANGE REFERENCE UNITS LAB K3 3.5-5.1 mmol/L Normal Potassium 5.0 Performed By: #### K3 #### [facility] [address] [place] [address] GLUCOSE,BEDSIDE Collected: 03/23/2018 Status: F Source: [place] 4:53 AM SYSTEM REPOSITORY TYPE CODE TESTS RESULT OUT OF RANGE REFERENCE UNITS LAB BGLU 70-100 mg/dL High 340 Glucose,Beds destini Result Comment: Test performed by glucose meter. Results may be 10%-15% lower than serum/plasma values. (CLIA ID [id number]) Performed By: #### BGLU #### [facility] [address] [place] [address] GLUCOSE,BEDSIDE Collected: 03/23/2018 Status: F Source: [place] 2:49 AM SYSTEM REPOSITORY TYPE CODE TESTS RESULT OUT OF RANGE REFERENCE UNITS LAB BGLU 70-100 mg/dL High 241 Glucose,Beds destini Result Comment: Test performed by glucose meter. Results may be 10%-15% lower than serum/plasma values. (CLIA ID [id number]) Performed By: #### BGLU #### [facility] [address] [place] [phone] HEMOGRAM Collected: 03/23/2018 Status: F Source: [place] 12:23 AM SYSTEM REPOSITORY TYPE CODE TESTS [...] Performed By: #### HEMOG, BMP3, MG3 #### [facility] [place] [address] BASIC METABOLIC PANEL Collected: 03/23/2018 Status: F Source: [place] 12:23 AM SYSTEM REPOSITORY TYPE CODE TESTS [...] Performed By: #### HEMOG, BMP3, MG3 #### [facility] [address] [place] [address] MAGNESIUM Collected: 03/23/2018 Status: F Source: [place] 12:23 AM SYSTEM REPOSITORY TYPE CODE TESTS RESULT OUT OF RANGE REFERENCE UNITS LAB MG3 1.6-2.3 mg/dL Normal Magnesium 1.8 Performed By: #### HEMOG, BMP3, MG3 #### [facility] [address] [place] [phone] GLUCOSE,BEDSIDE Collected: 03/22/2018 Status: F Source: [place] 8:43 PM SYSTEM REPOSITORY TYPE CODE TESTS RESULT OUT OF RANGE REFERENCE UNITS LAB BGLU 70-100 mg/dL High 253 Glucose,Beds destini Result Comment: Test performed by glucose meter. Results may be 10%-15% lower than serum/plasma values. (CLIA ID [id number]) Performed By: #### BGLU #### [facility] [address] [place] [address] GLUCOSE,BEDSIDE Collected: 03/22/2018 Status: F Source: [place] 5:20 PM SYSTEM REPOSITORY TYPE CODE TESTS RESULT OUT OF RANGE REFERENCE UNITS LAB BGLU 70-100 mg/dL High 135 Glucose,Beds destini Result Comment: Test performed by glucose meter. Results may be 10%-15% lower than serum/plasma values. (CLIA ID [id number]) Performed By: #### BGLU #### [facility] [address] [place] [address] GLUCOSE,BEDSIDE Collected: 03/22/2018 Status: F Source: [place] 4:05 PM SYSTEM REPOSITORY TYPE CODE TESTS RESULT OUT OF RANGE REFERENCE UNITS LAB BGLU 70-100 mg/dL High 117 Glucose,Beds destini Result Comment: Test performed by glucose meter. Results may be 10%-15% lower than serum/plasma values. (CLIA ID [id number]) Performed By: #### BGLU #### [facility] [place] [address] GLUCOSE,BEDSIDE Collected: 03/22/2018 Status: F Source: [place] 3:35 PM SYSTEM REPOSITORY TYPE CODE TESTS RESULT OUT OF RANGE REFERENCE UNITS LAB BGLU 70-100 mg/dL High 122 Glucose,Beds destini Result Comment: Test performed by glucose meter. Results may be 10%-15% lower than serum/plasma values. (CLIA ID [id number]) Performed By: #### BGLU #### [facility] [address] [place] [address] GLUCOSE,BEDSIDE Collected: 03/22/2018 Status: F Source: [place] 12:34 PM SYSTEM REPOSITORY TYPE CODE TESTS RESULT OUT OF RANGE REFERENCE UNITS LAB BGLU 70-100 mg/dL High 127 Glucose,Beds destini Result Comment: Test performed by glucose meter. Results may be 10%-15% lower than serum/plasma values. (CLIA ID [id number]) Performed By: #### BGLU #### [facility] [place] [address] GLUCOSE,BEDSIDE Collected: 03/22/2018 Status: F Source: [place] 8:44 AM SYSTEM REPOSITORY TYPE CODE TESTS RESULT OUT OF RANGE REFERENCE UNITS LAB BGLU 70-100 mg/dL High 127 Glucose,Beds destini Result Comment: Test performed by glucose meter. Results may be 10%-15% lower than serum/plasma values. (CLIA ID [id number]) Performed By: #### BGLU #### [facility] [address] [place] [address] GLUCOSE,BEDSIDE Collected: 03/22/2018 Status: F Source: [place] 6:32 AM SYSTEM REPOSITORY TYPE CODE TESTS RESULT OUT OF RANGE REFERENCE UNITS LAB BGLU 70-100 mg/dL High 145 Glucose,Beds destini Result Comment: Test performed by glucose meter. Results may be 10%-15% lower than serum/plasma values. (CLIA ID [id number]) Performed By: #### BGLU #### [facility] [address] [place] [address] HEMOGRAM Collected: 03/22/2018 Status: F Source: [place] 12:04 AM SYSTEM REPOSITORY TYPE CODE TESTS [...] By: #### HEMOG, PT/AP, BMP3, MG3 #### [facility] [address] [place] [phone] PROTIME AND APTT Collected: 03/22/2018 Status: F Source: [place] 12:04 AM SYSTEM REPOSITORY TYPE CODE TESTS [...] By: #### HEMOG, PT/AP, BMP3, MG3 #### [facility] [address] [place] [address] BASIC METABOLIC PANEL Collected: 03/22/2018 Status: F Source: [place] 12:04 AM SYSTEM REPOSITORY TYPE CODE TESTS [...] By: #### HEMOG, PT/AP, BMP3, MG3 #### [facility] [address] [place] [address] MAGNESIUM Collected: 03/22/2018 Status: F Source: [place] 12:04 AM SYSTEM REPOSITORY TYPE CODE TESTS RESULT OUT OF RANGE REFERENCE UNITS LAB MG3 1.6-2.3 mg/dL Normal Magnesium 1.7 Performed By: #### HEMOG, PT/AP, BMP3, MG3 #### [facility] [address] [place] [address] GLUCOSE,BEDSIDE Collected: 03/21/2018 Status: F Source: [place] 8:36 PM SYSTEM REPOSITORY TYPE CODE TESTS RESULT OUT OF RANGE REFERENCE UNITS LAB BGLU 70-100 mg/dL High 248 Glucose,Beds destini Result Comment: Test performed by glucose meter. Results may be 10%-15% lower than serum/plasma values. (CLIA ID [id number]) Performed By: #### BGLU #### [facility] [address] [place] [address] GLUCOSE,BEDSIDE Collected: 03/21/2018 Status: F Source: [place] 4:53 PM SYSTEM REPOSITORY TYPE CODE TESTS RESULT OUT OF RANGE REFERENCE UNITS LAB BGLU 70-100 mg/dL High 287 Glucose,Beds destini Result Comment: Test performed by glucose meter. Results may be 10%-15% lower than serum/plasma values. (CLIA ID [id number]) Performed By: #### BGLU #### [facility] [address] [place] [address] 12 LEAD ELECTROCARDIOGRAM Observed: 03/21/2018 Status: F Source: [place] 3:44 PM [facility] REPOSITORY [facility] Cardiovascular Services [address] [place] [address] 12 Lead EKG 03/17/18 0745 MR#: [id number] Acct: [id number] Name: NO MUNIZ Rep #: [id number] : 1940 78 From: Shan Henry MD Attending Dr: Claudia Cruz MD Status: DIS IN Ordering Dr: Justus Gutierrez MD Date: 03/17/18 Location: [facility] Sex: F C Admitted: 03/18/18 Test Reason [...] ECG Confirmed by CARL EL, SHAN ([id number]), greeting card editor DAMIAN MCCRACKEN ([id number]) on 03/21/2018 3:43:47 PM Referred By: LILA Confirmed By:SHAN HENRY MD 03/21/18 8122 Date Shan Henry MD CC: GUMMED TAPE PRESS OPERATORKristopher Chapa; JUSTUS GUTIERREZ MD; Claudia Cruz MD Signed Observed: 03/21/2018 Status: F Source: [place] CULTURE URINE 12:08 PM SYSTEM REPOSITORY Order [...] 20 S Performed By: #### C/UR #### [facility] [address] [address] [facility] [address] [place] [phone] GLUCOSE,BEDSIDE Collected: 03/21/2018 Status: F Source: [place] 11:49 AM SYSTEM REPOSITORY TYPE CODE TESTS RESULT OUT OF RANGE REFERENCE UNITS LAB BGLU 70-100 mg/dL High 330 Glucose,Beds destini Result Comment: Test performed by glucose meter. Results may be 10%-15% lower than serum/plasma values. (CLIA ID [id number]) Performed By: #### BGLU #### [facility] [address] [place] [address] GLUCOSE,BEDSIDE Collected: 03/21/2018 Status: F Source: [place] 7:51 AM SYSTEM REPOSITORY TYPE CODE TESTS RESULT OUT OF RANGE REFERENCE UNITS LAB BGLU 70-100 mg/dL High 279 Glucose,Beds destini Result Comment: Test performed by glucose meter. Results may be 10%-15% lower than serum/plasma values. (CLIA ID [id number]) Performed By: #### BGLU #### [facility] [address] [place] [address] HEMOGRAM Collected: 03/21/2018 Status: F Source: [place] 1:42 AM SYSTEM REPOSITORY TYPE CODE TESTS [...] Performed By: #### HEMOG, BMP3, MG3 #### [facility] [address] [place] [address] BASIC METABOLIC PANEL Collected: 03/21/2018 Status: F Source: [place] 1:42 AM SYSTEM REPOSITORY TYPE CODE TESTS [...] Performed By: #### HEMOG, BMP3, MG3 #### [facility] [place] [address] MAGNESIUM Collected: 03/21/2018 Status: F Source: [place] 1:42 AM SYSTEM REPOSITORY TYPE CODE TESTS RESULT OUT OF RANGE REFERENCE UNITS LAB MG3 1.6-2.3 mg/dL Normal Magnesium 1.9 Performed By: #### HEMOG, BMP3, MG3 #### [facility] [address] [place] [address] GLUCOSE,BEDSIDE Collected: 03/20/2018 Status: F Source: [place] 8:20 PM SYSTEM REPOSITORY TYPE CODE TESTS RESULT OUT OF RANGE REFERENCE UNITS LAB BGLU 70-100 mg/dL High 303 Glucose,Beds destini Result Comment: Test performed by glucose meter. Results may be 10%-15% lower than serum/plasma values. (CLIA ID [id number]) Performed By: #### BGLU #### [facility] [address] [place] [address] CR PELVIS 1 OR 2 Observed: 03/20/2018 Status: F Source: [facility] 7:14 PM SYSTEM REPOSITORY Patient Name: NO MUNIZ Diagnostic Radiology Exam Date/Time 03/20/2018 11:49:51 EDT Exam CR Pelvis 1 or 2 Views Ordering Physician LANDY WILLIS HEATHER Accession Number [id number] CPT4 Codes 97923 () Reason For Exam fall Report PELVIS SINGLE VIEW CLINICAL INDICATION: fall TECHNIQUE: AP view of the pelvis. COMPARISON: None FINDINGS: SI joints and pubic symphysis appear intact. Bilateral hip joint spaces appear normal. Femoral head and femoral neck appear normal bilaterally. No acute fracture or dislocation seen. IMPRESSION: 1. Negative. Report Dictated on Final Dictated: 03/20/2018 7:14 pm Dictating Physician: MD BETH JOHN R Signed Date and Time: 03/20/2018 7:14 pm Signed by: MD BETH JOHN R Transcribed Date and Time: 03/20/2018 7:14 CR ANKLE 2 VIEWS Observed: 03/20/2018 Status: F Source: [place] [facility] 7:13 PM SYSTEM REPOSITORY Patient Name: NO MUNIZ Diagnostic Radiology Exam Date/Time 03/20/2018 11:49:27 EDT Exam CR Ankle 2 Views Left Ordering Physician VAUGHN MEDEROS Accession Number [id number] CPT4 Codes 07158 () Reason For Exam swelling Report LEFT [...] CHEST PORTABLE Observed: 03/20/2018 Status: F Source: [place] 7:13 PM SYSTEM REPOSITORY Patient Name: NO MUNIZ Diagnostic Radiology Exam Date/Time 03/20/2018 11:50:07 EDT Exam CR Chest Portable Ordering Physician LANDY WILLIS HEATHER Accession Number [id number] CPT4 Codes 90766 () Reason For Exam fall Report SINGLE [...] BRAIN W/O Observed: 03/20/2018 Status: F Source: [facility] 7:10 PM SYSTEM REPOSITORY Patient Name: NO MUNIZ MRI Exam Date/Time 03/20/2018 16:10:44 EDT Exam MRI Brain w/o Contrast Ordering Physician MARITZA WERNER Accession Number [id number] CPT4 Codes 78002 () Reason For Exam LOC Report MRI [...] SPINE CERVICAL Observed: 03/20/2018 Status: F Source: [facility] W/O CONTRAST 6:59 PM SYSTEM REPOSITORY Patient Name: NO MUNIZ MRI Exam Date/Time 03/20/2018 16:30:08 EDT Exam MRI Spine Cervical w/o Contrast Ordering Physician MD RIVERO PAUL W Accession Number [id number] CPT4 Codes 04878 () Reason For Exam RUE pain, degenerative [...] 6:59 GLUCOSE,BEDSIDE Collected: 03/20/2018 Status: F Source: [place] 5:30 PM SYSTEM REPOSITORY TYPE CODE TESTS RESULT OUT OF RANGE REFERENCE UNITS LAB BGLU 70-100 mg/dL High 329 Glucose,Beds destini Result Comment: Test performed by glucose meter. Results may be 10%-15% lower than serum/plasma values. (CLIA ID [id number]) Performed By: #### BGLU #### [facility] [address] [place] [address] GLUCOSE,BEDSIDE Collected: 03/20/2018 Status: F Source: [place] 12:35 PM SYSTEM REPOSITORY TYPE CODE TESTS RESULT OUT OF RANGE REFERENCE UNITS LAB BGLU 70-100 mg/dL High 221 Glucose,Beds destini Result Comment: Test performed by glucose meter. Results may be 10%-15% lower than serum/plasma values. (CLIA ID [id number]) Performed By: #### BGLU #### [facility] [address] [place] [address] VL VENOUS DUPLEX US Observed: 03/20/2018 Status: F Source: [facility] LOWER EXT BILATERAL 12:32 PM SYSTEM REPOSITORY Patient Name: NO MUNIZ Ultrasound Exam Date/Time 03/20/2018 13:24:54 EDT Exam VL Venous Duplex US Lower Ext Bilateral Ordering Physician VAUGHN MEDEROS Accession Number [id number] CPT4 Codes 51449 () Reason For Exam swelling LLE Report [facility] --- Lower Extremity Venous Duplex Report Patient Name: DO CristyB: 1940 Study Date: 03/20/2018 No (78yrs) Age: 78 Account: [id number] Gender: F Loc: [facility] BP: Ordering: Vaughn Mederos Technologist: Ordering Physician: Vaughn Mederos Instrumentation Tech: Harjit Askew Rodolfo, [facility] Interpreting Physician: Stephen Cotto MD --- Location: [facility] --- INDICATIONS: Swelling of limb. swelling left [...] performed. The images were obtained using a [employer] E9 vascular ultrasound machine. The study was [...] --+ Electronically signed by: Stephen Cotto MD [id number] Final Dictated: 03/20/2018 1:36 pm Dictating Physician: STEPHEN COTTO Signed Date and Time: 03/20/2018 1:35 pm Signed by: STEPHEN COTTO [facility] Collected: 03/20/2018 Status: F Source: [facility] 7:45 AM SYSTEM REPOSITORY TYPE CODE TESTS RESULT OUT OF RANGE REFERENCE UNITS LAB BGLU 70-100 mg/dL High 163 Glucose,Beds destini Result Comment: Test performed by glucose meter. Results may be 10%-15% lower than serum/plasma values. (CLIA ID [id number]) Performed By: #### BGLU #### [facility] [address] [place] [phone] BASIC METABOLIC PANEL Collected: 03/20/2018 Status: F Source: [facility] 1:00 AM SYSTEM REPOSITORY TYPE CODE TESTS [...] By: #### BMP3, PHOS3, HEMOG, HA1C2 #### [facility] [address] [place] [address] PHOSPHORUS Collected: 03/20/2018 Status: F Source: [facility] 1:00 AM SYSTEM REPOSITORY TYPE CODE TESTS RESULT OUT OF RANGE REFERENCE UNITS LAB PHOS3 2.5-4.5 mg/dL Normal Phosphorus 4.2 Performed By: #### BMP3, PHOS3, HEMOG, HA1C2 #### [facility] [address] [place] [address] HEMOGRAM Collected: 03/20/2018 Status: F Source: [place] 1:00 AM SYSTEM REPOSITORY TYPE CODE TESTS [...] By: #### BMP3, PHOS3, HEMOG, HA1C2 #### [facility] [address] [place] [address] HEMOGLOBIN A1C Collected: 03/20/2018 Status: F Source: [facility] 1:00 AM SYSTEM REPOSITORY TYPE CODE TESTS RESULT OUT OF REFERENCE UNITS RANGE LAB A1C2 4.0-5.7 % High Hemoglobin A1C 9.9 Result Comment: --HgbA1C levels may not be accurate in patients who have renal disease, received recent blood transfusions, are anemic, or who have dyshemoglobinemia. LAB EAG2 mg/dL Estimated Avg Glucose 237 Performed By: #### BMP3, PHOS3, HEMOG, HA1C2 #### [facility] [address] [address] MAGNESIUM Collected: 03/20/2018 Status: F Source: [place] 1:00 AM SYSTEM REPOSITORY TYPE CODE TESTS RESULT OUT OF RANGE REFERENCE UNITS LAB MG3 1.6-2.3 mg/dL Normal Magnesium 1.8 Result Comment: Moderately hemolysed, interpret with caution. Performed By: #### MG3 #### [facility] [address] [address] VIT D 25-OH, TOTAL Collected: 03/20/2018 Status: F Source: [place] 1:00 AM SYSTEM REPOSITORY TYPE CODE TESTS [...] equal to 30 ng/mL Test performed by [email or web address] Competitive Immunoassay, measuring Total Vitamin D, not individual fractions. Performed By: #### VD25H #### [facility] [address] [facility] [place] [address] GLUCOSE,BEDSIDE Collected: 03/19/2018 Status: F Source: [facility] 10:34 PM SYSTEM REPOSITORY TYPE CODE TESTS RESULT OUT OF RANGE REFERENCE UNITS LAB BGLU 70-100 mg/dL High 189 Glucose,Beds destini Result Comment: Test performed by glucose meter. Results may be 10%-15% lower than serum/plasma values. (CLIA ID [id number]) Performed By: #### BGLU #### [facility] [address] [place] [address] [address] SPINE CERVICAL W/O Observed: 03/19/2018 Status: F Source: [facility] CONTRAST 7:01 PM SYSTEM REPOSITORY Patient Name: NO MUNIZ CT Exam Date/Time 03/19/2018 18:37:[address] Spine Cervical w/o Contrast Ordering Physician MD PANCHO, CHELSEA Cisneros Accession Number [id number] CPT4 Codes 37552 () Reason For Exam fall, RUE weakness [...] Dictated: 03/19/2018 7:01 pm Dictating Physician: MD IGNACIA, RUPA R Signed Date and Time: 03/19/2018 7:07 pm Signed by: MD BETH JOHN R Transcribed Date and Time: 03/19/2018 7:01 HEMOGRAM Collected: 03/19/2018 Status: F Source: [facility] 6:12 PM SYSTEM REPOSITORY TYPE CODE TESTS [...] HEMOG, PT/AP, BMP3, LFT3, TROPN, TSH4 #### [facility] [address] [place] [address] PROTIME AND APTT Collected: 03/19/2018 Status: F Source: [facility] 6:12 PM SYSTEM REPOSITORY TYPE CODE TESTS [...] HEMOG, PT/AP, BMP3, LFT3, TROPN, TSH4 #### [facility] [address] [place] [phone] BASIC METABOLIC PANEL Collected: 03/19/2018 Status: F Source: [facility] 6:12 PM SYSTEM REPOSITORY TYPE CODE TESTS [...] HEMOG, PT/AP, BMP3, LFT3, TROPN, TSH4 #### [facility] [address] [address] HEPATIC FUNCTION Collected: 03/19/2018 Status: F Source: [facility] 6:12 PM SYSTEM REPOSITORY TYPE CODE TESTS [...] HEMOG, PT/AP, BMP3, LFT3, TROPN, TSH4 #### [facility] [address] [place] [address] TROPONIN I Collected: 03/19/2018 Status: F Source: [facility] 6:12 PM SYSTEM REPOSITORY TYPE CODE TESTS RESULT OUT OF RANGE REFERENCE UNITS LAB TROP4 0.000-0.034 ng/mL Normal Troponin I < 0.012 Result Comment: 0.046 - 0.400 = Indeterminate > 0.400 = Consider Myocardial Injury Performed By: #### HEMOG, PT/AP, BMP3, LFT3, TROPN, TSH4 #### [facility] [address] [place] [address] THYROID STIM. Collected: 03/19/2018 Status: F Source: [facility] HORMONE 6:12 PM SYSTEM REPOSITORY TYPE CODE TESTS RESULT OUT OF RANGE REFERENCE UNITS LAB TSH4 0.465-4.680 uU/mL Normal Thyroid Stim. 3.784 Hormone Performed By: #### HEMOG, PT/AP, BMP3, LFT3, TROPN, TSH4 #### [facility] [address] [place] [address] DISCHARGE SUMMARY Observed: 03/19/2018 Status: F Source: [place] 2:58 PM [facility] REPOSITORY [facility] Medical Records Department [address] [place] [address] Discharge Summary 03/19/18 1355 MR#: [id number] Acct: [id number] Name: NO MUNIZ Rep #: [id number] : 1940 78 From: Shavon DOWNS PCP: HIMANSHU Gill Status: ADM IN Location: [facility] [id number] <Shavon Bradley - Last Filed: 03/19/18 14:05> [...] Jens Thurman MD at 10:22 EDT Tel [phone], Service support , Chest X-Ray 03/17/18 09:01 IMPRESSION: Findings in keeping with vascular congestion and mild degree of CHF. Electronically Signed: Jens Thurman MD at 10:19 EDT Tel [phone], Service support , Brain MRI 03/17/18 12:20 [...] which may be contributing to her symptoms. [facility] contacted who is willing to accept patient for neurosurgery evaluation. Patient and family agreeable to this. Patient is stable of time of transfer to [facility]. General: Alert, Oriented x3, Cooperative HEENT: [...] is stable at time of transfer to [facility] for further neurosurgery evaluation regarding severe [...] though she was unable to tolerate the Mitzi-Hallpike maneuver and the Jessica maneuver. Patient kept [...] to tertiary hospital for urgent neurosurgery evaluation.. [facility] accepted patient was transferred. Patient seen and [...] CT reading as above. Patient transferred to [facility] as per Shavon DOWNS's note. [] This note was generated with Snapsation software. It may contain incorrect words, spelling, and punctuation that were not noted in checking the note before signing. Code Visit Inpatient E AND M: 89527 Disch Hosp 03/19/18 1405 <Electronically signed by Shavon DOWNS> Date Shavon DOWNS 03/19/18 7010<Electronically signed by Claudia Cruz MD> Cosigner Signature (if applicable): Date Claudia Cruz MD CC: GUMMED TAPE PRESS OPERATOR-C Shavon Bradley; GUMMED TAPE PRESS OPERATOR-C Latia Chapa; Claudia Cruz MD Signed BEDSIDE GLUCOSE Collected: 03/19/2018 Status: F Source: [place] 11:20 AM [facility] REPOSITORY TYPE CODE TESTS RESULT OUT OF REFERENCE UNITS RANGE LAB L501.080 70-110 mg/dL High BEDSIDE GLU 170 Result Comment: MANAGEMENT OF PATIENT CARE PER NURSING PROTOCOL Performed By: #### L501.080 #### [facility] Laboratory Point of Care [address] [place] [address] SPINE CERVICAL Observed: 03/19/2018 Status: F Source: [place] WITHOUT CONTRAS 9:28 AM [facility] REPOSITORY [facility] Imaging Services [address] [place] [address] Spine Cervical without Contras MR#: [id number] Acct: [id number] Name: NO MUNIZ Rep #: [id number] : 1940 F 78 From: Alfonso Pozo MD PCP: HIMANSHU Gill Status: ADM IN Study: Spine Cervical without Contras Date of Exam: 03/19/18 Exam# [id number] Ordering Dr: Shavon Bradley STUDY: CT CERVICAL [...] support , CC: HIMANSHU Bradley; HIMANSHU Chapa [employer] Consultant: Signed BEDSIDE GLUCOSE Collected: 03/19/2018 Status: F Source: [place] 7:30 AM [facility] REPOSITORY TYPE CODE TESTS RESULT OUT OF REFERENCE UNITS RANGE LAB L501.080 70-110 mg/dL High BEDSIDE GLU 115 Result Comment: MANAGEMENT OF PATIENT CARE PER NURSING PROTOCOL Performed By: #### L501.080 #### [facility] Point of Care [address] [place], [place] [address] CBC W/DIFF, AUTOMATED Collected: 03/19/2018 Status: F Source: [place] 6:25 AM [facility] REPOSITORY TYPE CODE TESTS RESULT OUT OF [...] Lymph 3.00 Performed By: #### L100.0100 #### [facility] [address] [place], [place], [address] BASIC METABOLIC Collected: 03/19/2018 Status: F Source: [place] PROFILE (BMP) 6:25 AM [facility] REPOSITORY TYPE CODE TESTS RESULT OUT OF [...] GAP 9 Performed By: #### L500.2500 #### [facility] [address] [place], [address] BEDSIDE GLUCOSE Collected: 03/18/2018 Status: F Source: [place] 9:33 PM [facility] REPOSITORY TYPE CODE TESTS RESULT OUT OF REFERENCE UNITS RANGE LAB L501.080 70-110 mg/dL High BEDSIDE GLU 171 Result Comment: MANAGEMENT OF PATIENT CARE PER NURSING PROTOCOL Performed By: #### L501.080 #### [facility] Point of Care [address] [place] [address] BEDSIDE GLUCOSE Collected: 03/18/2018 Status: F Source: [place] 4:48 PM [facility] REPOSITORY TYPE CODE TESTS RESULT OUT OF REFERENCE UNITS RANGE LAB L501.080 70-110 mg/dL High BEDSIDE GLU 172 Result Comment: MANAGEMENT OF PATIENT CARE PER NURSING PROTOCOL Performed By: #### L501.080 #### [facility] Point of Care [address] [place] [address] BEDSIDE GLUCOSE Collected: 03/18/2018 Status: F Source: [place] 11:26 AM [facility] REPOSITORY TYPE CODE TESTS RESULT OUT OF REFERENCE UNITS RANGE LAB L501.080 70-110 mg/dL High BEDSIDE GLU 199 Result Comment: MANAGEMENT OF PATIENT CARE PER NURSING PROTOCOL Performed By: #### L501.080 #### [facility] Point of Care [address] [place] [address] BEDSIDE GLUCOSE Collected: 03/18/2018 Status: F Source: [place] 6:52 AM [facility] REPOSITORY TYPE CODE TESTS RESULT OUT OF REFERENCE UNITS RANGE LAB L501.080 70-110 mg/dL High BEDSIDE GLU 146 Result Comment: MANAGEMENT OF PATIENT CARE PER NURSING PROTOCOL Performed By: #### L501.080 #### [facility] Point [place] [address] CBC W/DIFF, AUTOMATED Collected: 03/18/2018 Status: F Source: [place] 5:50 AM [facility] REPOSITORY TYPE CODE TESTS RESULT OUT OF [...] Lymph 2.41 Performed By: #### L100.0100 #### [facility] [address] [place], [place], [address] BASIC METABOLIC Collected: 03/18/2018 Status: F Source: [place] PROFILE (BMP) 5:50 AM [facility] REPOSITORY TYPE CODE TESTS RESULT OUT OF [...] GAP 7 Performed By: #### L500.2500 #### [facility] [address] [place], [place], [address] BEDSIDE GLUCOSE Collected: 03/17/2018 Status: F Source: [place] 9:34 PM [facility] REPOSITORY TYPE CODE TESTS RESULT OUT OF REFERENCE UNITS RANGE LAB L501.080 70-110 mg/dL High BEDSIDE GLU 152 Result Comment: MANAGEMENT OF PATIENT CARE PER NURSING PROTOCOL Performed By: #### L501.080 #### [facility] Point of Care [address] [place] [address] EMERGENCY DEPARTMENT Observed: 03/17/2018 Status: F Source: [place] SUMMARY 5:24 PM [facility] REPOSITORY [facility] Medical Records Department [address] [place] [address] Emergency Department Summary 03/17/18 0903 MR#: [id number] Acct: [id number] Name: NO MUNIZ Rep #: [id number] : 1940 78 From: Justus Gutierrez MD PCP: HIMANSHU Gill Status: ADM DEISY History of Present Illness [...] (Verified 03/17/18 07:43) Vomiting Primary Care Physician: Eduard,Latia Andrzej, GUMMED TAPE PRESS OPERATOR-C [Primary Care Provider] - Lives: Alone Smoking [...] Jens Thurman MD at 10:22 EDT Tel [phone], Service support , Chest X-Ray 03/17/18 09:01 IMPRESSION: Findings in keeping with vascular congestion and mild degree of CHF. Electronically Signed: Jens Thurman MD at 10:19 EDT Tel [phone], Service support , 03/17/18 09:01 Brain/Head without [...] for ED Patient: Disposition: Acute Care [facility] Chief Complaint: Upper Extremity Injury Diagnosis: Vertigo, peripheral, Carpal tunnel syndrome on right, Chest pain, unspecified What to do if you have Problems For any increased pain, shortness of breath, bleeding, nausea or vomiting, chest pain, or any unexpected problems, contact your Primary Care Provider. Call [facility] ([phone]) or report to the closest Emergency Room. Call 911 if necessary. 03/17/18 6463 <Electronically signed by Justus Gutierrez MD> Date Justus Osorio Signature (If Indicated): Date CC: GUMMED TAPE PRESS OPERATOR-C Latia Chapa TROPONIN-I Collected: 03/17/2018 Status: F Source: [place] 5:23 PM [facility] REPOSITORY Order Comment: 'TROP' Serial specimen #1, #2 or #3: 2 TYPE CODE TESTS RESULT OUT OF RANGE REFERENCE UNITS LAB L501.4010 <0.045 ng/mL Normal < 0.015 TROPONIN-I Result Comment: TROPONIN-I EXPECTED VALUES <0.045 Negative 0.045 - 0.590 Consistent with Cardiac Damage > OR = 0.600 Critical Value Not every elevated troponin is indicative of PR. These values should be used with clinical judgement in examining the patient's clinical picture for diagnosis. To establish a diagnosis of PR versus myocardial injury, there must be a demonstrated rise and/or fall in the troponin values, in addition to ischemic symptoms, EKG changes, new regional wall motion abnormality, and/or angiographical evidence. PLEASE NOTE: REFERENCE RANGES EDITED 18 Performed By: #### L501.4010 #### [facility] [address] [facility] 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 Gait not assessed. Unable to do [place] Hallpike testing as patient got uncomfortable even [...] Jens Thurman MD at 10:22 EDT Tel [phone], Service support , Chest X-Ray 03/17/18 09:01 IMPRESSION: Findings in keeping with vascular congestion and mild degree of CHF. Electronically Signed: Jens Thurman MD at 10:19 EDT Tel [phone], Service support , 03/17/18 09:01 Brain/Head without [...] 8. Code Visit OBSV E AND M: 63046 Initial observation care L2 03/17/18 1643 <Electronically signed by Claudia Cruz MD> Date Claudia Cruz MD Cosigner Signature: Date (if applicable) CC: GUMMED TAPE PRESS OPERATOR-C Latia Chapa; Claudia Cruz MD Signed BEDSIDE GLUCOSE Collected: 03/17/2018 Status: F Source: [place] 4:21 PM [facility] REPOSITORY TYPE CODE TESTS RESULT OUT OF REFERENCE UNITS RANGE LAB L501.080 70-110 mg/dL High BEDSIDE GLU 126 Result Comment: MANAGEMENT OF PATIENT CARE PER NURSING PROTOCOL Performed By: #### L501.080 #### [facility] Point of Care [address] [place] [address] WRIST 2 VIEWS Observed: 03/17/2018 Status: F Source: [place] 3:36 PM [facility] REPOSITORY [facility] Imaging Services [address] [place] [address] Wrist 2 Views MR#: [id number] Acct: [id number] Name: NO MUNIZ Rep #: [id number] : 1940 F 78 From: Kp Adame MD PCP: HIMANSHU Gill Status: ADM DEISY Study: Wrist 2 Views Date of Exam: 03/17/18 Exam# [id number] Ordering Dr: Claudia Cruz MD STUDY: X-RAY [...] 19:40 EDT , Service support , CC: GUMMED TAPE PRESS OPERATOR-C Latia Chapa; Claudia Cruz MD [employer] Consultant: Signed SHOULDER MIN 2 VIEWS Observed: 03/17/2018 Status: F Source: [place] 3:36 PM [facility] REPOSITORY [facility] Imaging Services [address] [place] [address] Shoulder min 2 Views MR#: [id number] Acct: [id number] Name: NO MUNIZ Rep #: [id number] : 1940 F 78 From: Kp Adame MD PCP: Latia Chapa NP-C Status: ADM DEISY Study: Shoulder min 2 Views Date of Exam: 03/17/18 Exam# [id number] Ordering Dr: Claudia Cruz MD STUDY: X-RAY [...] 19:40 EDT , Service support , CC: GUMMED TAPE PRESS OPERATOR-C Latia Chapa; Claudia Cruz MD [employer] Consultant: Signed ELBOW 2 VIEWS Observed: 03/17/2018 Status: F Source: [place] 3:36 PM [facility] REPOSITORY [facility] Imaging Services [address] [place] [address] Elbow 2 Views MR#: [id number] Acct: [id number] Name: NO MUNIZ Rep #: [id number] : 1940 F 78 From: Kp Adame MD PCP: HIMANSHU Gill Status: ADM DEISY Study: Elbow 2 Views Date of Exam: 03/17/18 Exam# [id number] Ordering Dr: Claudia Cruz MD STUDY: X-RAY [...] 19:41 EDT , Service support , CC: GUMMED TAPE PRESS OPERATOR-C Latia Chapa; Claudia Cruz MD [employer] Consultant: Signed BEDSIDE GLUCOSE Collected: 03/17/2018 Status: F Source: [place] 1:04 PM [facility] REPOSITORY TYPE CODE TESTS RESULT OUT OF REFERENCE UNITS RANGE LAB L501.080 70-110 mg/dL High BEDSIDE GLU 159 Result Comment: MANAGEMENT OF PATIENT CARE PER NURSING PROTOCOL Performed By: #### L501.080 #### [facility] Point of Care [address] [place] [address] BRAIN WITHOUT Observed: 03/17/2018 Status: F Source: [place] CONTRAST 12:21 PM [facility] REPOSITORY [facility] Imaging Services [address] [place] [address] Brain without Contrast MR#: [id number] Acct: [id number] Name: NO MUNIZ Rep #: [id number] : 1940 F 78 From: Kp Adame MD PCP: HIMANSHU Gill Status: ADM DEISY Study: Brain without Contrast Date of Exam: 03/17/18 Exam# [id number] Ordering Dr: Claudia Cruz MD STUDY: MRI [...] , CC: HIMANSHU Chapa; Claudia Cruz MD [employer] Consultant: Signed URINALYSIS, COMPLETE Collected: 03/17/2018 Status: F Source: [place] 10:05 AM [facility] REPOSITORY Order Comment: How was Urine Obtained? OIL SPECULATOR TO SPECIFY TYPE CODE TESTS RESULT OUT [...] URINE SEEN Performed By: #### L400.0001 #### [facility] [address] [place], [address] BASIC METABOLIC Collected: 03/17/2018 Status: F Source: [place] PROFILE (BMP) 9:10 AM [facility] REPOSITORY TYPE CODE TESTS RESULT OUT OF [...] 8 Performed By: #### L500.2500, L501.4010 #### [facility] [address] [facility] [place], [address] TROPONIN-I Collected: 03/17/2018 Status: F Source: [place] 9:10 AM [facility] REPOSITORY TYPE CODE TESTS RESULT OUT OF RANGE REFERENCE UNITS LAB L501.4010 <0.045 ng/mL Normal < 0.015 TROPONIN-I Result Comment: TROPONIN-I EXPECTED VALUES <0.045 Negative 0.045 - 0.590 Consistent with Cardiac Damage > OR = 0.600 Critical Value Not every elevated troponin is indicative of PR. These values should be used with clinical judgement in examining the patient's clinical picture for diagnosis. To establish a diagnosis of PR versus myocardial injury, there must be a demonstrated rise and/or fall in the troponin values, in addition to ischemic symptoms, EKG changes, new regional wall motion abnormality, and/or angiographical evidence. PLEASE NOTE: REFERENCE RANGES EDITED 18 Performed By: #### L500.2500, L501.4010 #### [facility] [address] [place], [address] CBC W/DIFF, AUTOMATED Collected: 03/17/2018 Status: F Source: [place] 9:10 AM [facility] REPOSITORY TYPE CODE TESTS RESULT OUT OF [...] Lymph 1.21 Performed By: #### L100.0100 #### [facility] [address] [place], [address] BNP,B-TYPE NATRIURETIC Collected: 03/17/2018 Status: F Source: [place] PEPTIDE 9:10 AM [facility] REPOSITORY Order Comment: ADD ON TO BLOOD IN LAB PLEASE TYPE CODE TESTS RESULT OUT OF RANGE REFERENCE UNITS LAB L503.6620 0-100 pg/mL High B-TYPE 149.0 FABIÁN PEP Performed By: #### L503.6620 #### [facility] [address] [place], [address] CHEST 1 VIEW Observed: 03/17/2018 Status: F Source: [place] (PORTABLE) 9:03 AM [facility] REPOSITORY [facility] Imaging Services [address] [place] [address] Chest 1 View (Portable) MR#: [id number] Acct: [id number] Name: NO MUNIZ John Rep #: [id number] : 1940 F 78 From: Jens Thurman MD PCP: Latia Chapa GUMMED TAPE PRESS OPERATOR-C Status: REG ER Study: Chest 1 View (Portable) Date of Exam: 03/17/18 Exam# [id number] Ordering Dr: Justus Gutierrez MD STUDY: X-RAY [...] Jens Thurman MD at 10:19 EDT Tel [phone], Service support , CC: HIMANSHU Chapa; JUSTUS GUTIERREZ MD [employer] Consultant: Signed BRAIN/HEAD WITHOUT Observed: 03/17/2018 Status: F Source: [place] CONTRAST 9:03 AM [facility] REPOSITORY [facility] Imaging Services [address] [place] [address] Brain/Head without Contrast MR#: [id number] Acct: [id number] Name: NO MUNIZ Rep #: [id number] : 1940 F 78 From: Jens Thurman MD PCP: HIMANSHU Gill Status: REG ER Study: Brain/Head without Contrast Date of Exam: 03/17/18 Exam# [id number] Ordering Dr: Justus Gutierrez MD STUDY: CT [...] Jens Thurman MD at 10:22 EDT Tel [phone], Service support , CC: HIMANSHU Chapa; JUSTUS GUTIERREZ MD [employer] Consultant: Signed TSH Collected: 02/24/2018 Status: F Source: [place] 9:20 AM [facility] REPOSITORY TYPE CODE TESTS RESULT OUT OF RANGE REFERENCE UNITS LAB TSH(LOINC) 0.27-4.20 mcIU/mL TSH 1.70 Performed By: #### TSH #### [address] [address] RENAL Observed: 02/03/2018 Status: F Source: [place] 5:00 PM [facility] REPOSITORY ORIGINAL Complete retroperitoneal ultrasound for the [...] URINALYSIS, COMPLETE Collected: 02/01/2018 Status: F Source: [place] 2:03 PM [facility] REPOSITORY Order Comment: How was Urine Obtained? [...] URINE SEEN Performed By: #### L400.0001 #### [facility] [address] [place], [address] RENAL PROFILE Collected: 02/01/2018 Status: F Source: [place] 2:03 PM [facility] REPOSITORY TYPE CODE TESTS RESULT OUT OF [...] CO2 24.0 Performed By: #### L500.3600 #### [facility] [address] [facility] [place], [place], [address] PROTEIN+CREATININE Collected: Status: F Source: [place] RATIO,URINE 02/01/2018 2:03 PM [facility] REPOSITORY TYPE CODE TESTS RESULT OUT OF RANGE REFERENCE UNITS LAB L501.1200 NO RANGE EST. mg/dL Normal UR CREAT 108.00 LAB L501.1930 <11.9 mg/dL High 88.9 PROTEIN,UR.R AN. LAB L501.1940 0-200 mg/g CRE High PROT:CRE 823 RATIO Performed By: #### L501.0900 #### [facility] [address] [facility] [place], [place], [address] ANTINUCLEAR ANTIBODY, Collected: 02/01/2018 Status: F Source: [place] IFA 2:03 [facility] REPOSITORY TYPE CODE TESTS RESULT OUT OF RANGE REFERENCE UNITS LAB L3100.8000 . Normal ANTHONY Negative test Result Comment: Negative <1:80 Borderline 1:80 Positive >1:80 Speckled cytoplasmic fluorescence is present. The antibodies noted in this pattern may be associated with, but not restricted to, primary biliary cirrhosis (PBC), polymyositis and dermatomyositis (PM/DM), and/or systemic lupus erythematosus (SLE). Performed at: - [facility] [id number] Triage Register Nurse: Harjit Tim PhD, Phone: [phone] Performed By: #### L3100.7950 #### [facility] (refer to report for specific site) refer to report for address and phone number CBC Collected: 11/16/2017 Status: F Source: [facility] 10:40 AM [facility] REPOSITORY TYPE CODE TESTS RESULT OUT OF [...] ANEU, LIPID, CMP, GFR, FT4, TSH #### [facility] [address] [place] [address] #### VIDH #### [address] [address] .AUTO DIFF Collected: 11/16/2017 Status: F Source: [facility] 10:40 AM [facility] REPOSITORY TYPE CODE TESTS RESULT OUT OF [...] ANEU, LIPID, CMP, GFR, FT4, TSH #### [address] [address] #### VIDH #### [facility] [address] [place] [address] .NEUABS Collected: 11/16/2017 Status: F Source: [facility] 10:40 AM [facility] REPOSITORY TYPE CODE TESTS RESULT OUT OF REFERENCE UNITS RANGE LAB ANEU(LOINC) 2.85-6.16 10 3/mcL Neutrophil, 4.40 Absolute Performed By: #### CBC, ADIFF, ANEU, LIPID, CMP, GFR, FT4, TSH #### [address] [address] #### VIDH #### [facility] [address] [place] [address] LIPID Collected: 11/16/2017 Status: F Source: [place] 10:40 AM [facility] REPOSITORY TYPE CODE TESTS RESULT OUT OF [...] ANEU, LIPID, CMP, GFR, FT4, TSH #### [facility] [address] [place], [place] [address] #### VIDH #### [address] [address] CMP Collected: 11/16/2017 Status: F Source: [facility] 10:40 AM [facility] REPOSITORY TYPE CODE TESTS [...] ANEU, LIPID, CMP, GFR, FT4, TSH #### [facility] [address] [place], [place] [address] #### VIDH #### [address] [address] .GFR Collected: 11/16/2017 Status: F Source: [facility] 10:40 AM [facility] REPOSITORY TYPE CODE TESTS RESULT OUT OF REFERENCE UNITS RANGE LAB GFRAA(LOINC ml/min/1.73 ) sqm GFR 49 [place] Result Comment: GFR Population mean for , [...] ANEU, LIPID, CMP, GFR, FT4, TSH #### [address] [address] #### VIDH #### [place] [address] FT4 Collected: 11/16/2017 Status: F Source: [facility] 10:40 AM [facility] REPOSITORY TYPE CODE TESTS RESULT OUT OF RANGE REFERENCE UNITS LAB FT4(LOINC) 0.6-1.7 ng/mL Free T4 1.0 Performed By: #### CBC, ADIFF, ANEU, LIPID, CMP, GFR, FT4, TSH #### [address] [address] #### VIDH #### [place] [address] TSH Collected: 11/16/2017 Status: F Source: [facility] 10:40 AM [facility] REPOSITORY TYPE CODE TESTS RESULT OUT OF RANGE REFERENCE UNITS LAB TSH(LOINC) 0.27-4.20 mcIU/mL High TSH 5.14 Result Comment: Above normal(expected)range Performed By: #### CBC, ADIFF, ANEU, LIPID, CMP, GFR, FT4, TSH #### [address] [address] #### VIDH #### [place] [address] VIDH Collected: 11/16/2017 Status: F Source: [facility] 10:40 AM [facility] REPOSITORY TYPE CODE TESTS RESULT OUT OF RANGE REFERENCE UNITS LAB VIDH(LOINC) ng/mL Vit. D 56 25-Hydroxy Result Comment: Interpretive Values Based on Total 25(OH)D: Severe Deficiency <20 ng/mL Mild to Moderate Deficiency 20-30 ng/mL Optimum Levels 30-100 ng/mL Toxicity Possible >100 ng/mL Performed By: #### CBC, ADIFF, ANEU, LIPID, CMP, GFR, FT4, TSH #### [address] [address] #### VIDH #### [place] [address] ALLERGIES ALLERGIES DATE TYPE / CODE NAME / CODE REACTION SEVERITY SOURCE 07/07/2018 Drug Penicillins/F Anaphylaxis Unknown [facility] All[facility]/416 491768557(RXN Hospital 035835(SNOM ORM) Repository ED CT) 07/07/2018 Drug Sulfa Vomiting Unknown [facility] Allergy/416 (Sulfonamide Hospital 564433(SNOM Antibiotics)/ Repository ED CT) [id number](RX NORM) 07/07/2018 Drug acetaminophen Vomiting Unknown [facility] Allergy/416 /[id number](R Hospital 994741(SNOM XNORM) Repository ED CT) 07/07/2018 Drug orange Hives Unknown [facility] Allergy/416 juice/N115006 Hospital 065178(SNOM 513(RXNORM) Repository ED CT) 07/07/2018 Drug strawberry/F0 Hives Unknown [facility] Allergy/416 42995516(RXNO Hospital 627391(SNOM RM) Repository ED CT) ENCOUNTERS ENCOUNTERS ADMIT/DISCHARGE ACCOUNT NUMBER ADMITTING ENCOUNTER LOCATION SOURCE CLASS 10/04/2018 [id number] [facility] ding:OLS.ACH Repository 09/27/2018 [id number] [facility] ding:OLS.ACH Repository 09/20/2018 [id number] [facility] ding:OLS.ACH Repository 09/14/2018 [id number] [facility] ding:OLS.ACH Repository 09/05/2018 [id number] [facility] ding:OLS.ACH Repository 08/30/2018 [id number] [facility] ding:OLS.ACH Repository 08/23/2018 [id number] [facility] ding:OLS.ACH Repository 08/18/2018/08/18/20 [id number] Ambulatory BBuilding:RA Owen [address] [place] [address] Repository 08/16/2018 [id number] [facility] ding:OLS.ACH Repository 08/09/2018 [id number] [facility] ding:OLS.ACH Repository 08/02/2018 [id number] [facility] ding:OLS.ACH Repository 07/26/2018 [id number] Ambulatory [facility] ding:OLS.ACH Repository 07/19/2018 [id number] Ambulatory [facility] ding:OLS.ACH Repository 07/12/2018 [id number] Ambulatory [facility] ding:OLS.ACH Repository 07/07/2018 [id number] Claudia Cruz Ambulatory BMSBuilding: [facility] Repository 07/07/2018/07/11/20 [id number] KorEdna ruiza Ambulatory [address] ding:PCURoom Repository : PED708Ywg: 1 07/07/2018 [id number] Ambulatory BMSBuilding: [facility] Repository 07/07/2018 [id number] Claudia Cruz Ambulatory BMSBuilding: [facility] Repository 07/07/2018 [id number] Claudia Cruz Ambulatory BMSBuilding: [facility] Repository 07/07/2018 [id number] Claudia Cruz Ambulatory BMSBuilding: [facility] Repository 07/07/2018 [id number] Claudia Cruz Ambulatory BMSBuilding: [facility] Repository 05/26/2018/05/30/20 [id number] Ambulatory BBuilding:DR Owen [address] [place] [address] Repository 05/24/2018/05/24/20 [id number] Emergency [address] ding:ED Repository 05/19/2018 [id number] Ambulatory [address] [place] [address] System ([place]) Repository 05/19/2018 [id number] Ambulatory [address] [place] [address] [place] Repository 04/14/2018/04/19/20 [id number] Ambulatory BMSBuilding: [address] Repository 04/13/2018 [id number] Rodneye, Ambulatory BMSBuilding: [facility] Ifijen [facility] Repository 04/13/2018 [id number] Oleghe, Ambulatory BMSBuilding: [facility] Ifijen [facility]MS.[facility] Repository 04/13/2018 [id number] Oleghe, Ambulatory BMSBuilding: [facility] Ifijen [facility] Repository 04/13/2018 [id number] Oleghe, Ambulatory BMSBuilding: [facility] Ifijen [facility]MS[facility] Repository 04/13/2018 [id number] Oleghe, Ambulatory BMSBuilding: [facility] Ifijen [facility] Repository 04/13/2018 [id number] Oleghe, Ambulatory BMSBuilding: [facility] Ifijen [facility] Repository 04/13/2018 [id number] Oleghe, Ambulatory BMSBuilding: [facility] Ifijen [facility]MS.[facility] Repository 04/13/2018/04/19/20 [id number] Oleghe, Ambulatory [address] ding:SJ3Fkmh Repository : JE898Zeu: 1 03/19/2018 [id number] Emergency [address] [place] [address] ERRoom: System [id number]: Repository [id number] 03/18/2018/03/19/20 [id number] Claudia Cruz Inpatient [facility] ding:PCURoom Repository : XOL204Avo: 1 03/18/2018/03/19/20 [id number] Ambulatory BMSBuilding: [address] Repository 03/18/2018/03/19/20 [id number] Ambulatory BMSBuilding: [address] Repository 03/18/2018 [id number] Claudia Cruz Ambulatory BMSBuilding: [facility] Repository 02/24/2018/02/29/20 [id number] Ambulatory [address] ding:DROP [facility] Repository 02/03/2018/02/04/20 [id number] Ambulatory [address] ding:[facility] Repository 02/01/2018 [id number] Ambulatory [facility] ding:POLAB3 Repository 11/16/2017/11/21/19 [id number] Ambulatory [address] ding:[facility] Repository PAYERS PAYERS ENCOUNTER GUARANTOR PAYER SUBSCRIBER SOURCE 10/04/2018 NO J Primary NOT GIVENUNK [facility] [id number] Insurance:SELF PAY [facility] RDAPOSTOLIC Number: Effective Repository QUAKER Date:2018-10-04 [place], [place] [address]Fgq: () 09/27/2018 NO J Primary NOT GIVENUNK [facility] [id number] Insurance:SELF PAY [facility] RDAPOSTOLIC Number: Effective Repository QUAKER Date:2018-09-27 [place], [place] [address]Ryn: () 09/20/2018 NO J Primary NO J [facility] [id number] Insurance:MYCARE CRSC HOFSTETTERDOB: Community ERNESTINA *IN [facility] [id number] Hospital RDAPOSTOLIC Number: Repository QUAKER [id number] [place] Date:7770-83-32AWBF [address]Wrx: (404) CLAIMS [phone] () [address] [address]EO: 09/20/2018 Secondary NOT GIVENUNK [facility] Insurance:SELF PAY [facility] Number: Effective Repository Date:2018-09-20 09/14/2018 NO J Primary NO J [facility] [id number] Insurance:MYCARE CRSC HOFSTETTERDOB: Community ERNESTINA *IN [facility] [id number] Hospital RDAPOSTOLIC Number: Repository QUAKER [id number] [place] Date:8250-08-02LNUW [address]Tcy: (562) CLAIMS [phone] () [address] [address]SK: 09/14/2018 Secondary NOT GIVENUNK [facility] Insurance:SELF PAY [facility] Number: Effective Repository Date:2018-09-14 09/05/2018 NO J Primary NO J [facility] [id number] Insurance:MYCARE CRSC HOFSTETTERDOB: Community ERNESTINA *IN [facility] [id number] Hospital RDAPOSTOLIC Number: Repository QUAKER [id number] [place] Date:4532-32-90OTSY [address]Uap: (330) CLAIMS [phone] (HP) [address] [address]WJ: 09/05/2018 Secondary NOT GIVENUNK [facility] Insurance:SELF PAY [facility] Number: Effective Repository Date:2018-09-05 08/30/2018 NO J Primary NO J [facility] [id number] Insurance:MYCARE CRSC HOFSTETTERDOB: Community ERNESTINA *IN [facility] [id number] Hospital RDAPOSTOLIC Number: Repository QUAKER [id number] [place] Date:3603-07-30PUVV [address]Rqf: (330) CLAIMS [phone] (HP) [address] [address]FJ: 08/30/2018 Secondary NOT GIVENUNK [facility] Insurance:SELF PAY [facility] Number: Effective Repository Date:2018-08-30 08/23/2018 [facility] Primary [facility] [id number] Insurance:MYCARE CRSC HOFSTETTERDOB: Community ERNESTINA *IN [facility] [id number] Hospital RDAPOSTOLIC Number: Repository QUAKER [id number] [place] Date:9324-67-96VHAG [address]Zxl: (330) CLAIMS [phone] (HP) [address] [address]LN: 08/23/2018 Secondary NOT GIVENUNK [facility] Insurance:SELF PAY [facility] Number: Effective Repository Date:2018-08-23 08/18/2018 [facility]ETTERDOB: [facility]: [facility] [id number] [facility] [place] [id number] Repository ernestina [facility] Number: [address] [place], [place] [id number] [place], [place] [address]Kmi: (330) Date:2018-08-1701108Npx: (HP) [id number] Name:NATTN Claims ()Tel: (000) DeptPO [address] (WP) 30[place], [place] [address]HA: 08/18/2018 Secondary [place] J [facility] Insurance:MEDICARE HOTETTERDOB: [facility] B [facility] [id number] Repository Number: [address] [id number], [place] Date:2018-08-1873164Yer: 330 [id number] [id number] Name:PCGS ()Tel: (000) Administrators LLCPO 000-0000 (WP) [address] [place] [address]RY: 08/16/2018 NO J Primary NO J [facility] [id number] Insurance:MYCARE CRS HOFSTETTERDOB: [facility] *IN [place] 583361-05-25[place], [place] Number: Repository [address]Rzz: 330 [id number] [phone] () Date:7937-25-23TWKJ CLAIMS [address] [place] [address]MR: 08/16/2018 Secondary NOT GIVENUNK [facility] Insurance:SELF PAY [facility] Number: Effective Repository Date:2018-08-16 08/09/2018 NO J Primary NO J [facility] [id number] Insurance:MYCARE CRS HOFSTETTERDOB: [facility] *IN [facility] 0658-02-00[place]ZEF[place], [place] Number: Repository [address]Goe: 330 [id number] [phone] () Date:5367-25-94YBPW CLAIMS DEPTPO [address] [place] [address]QR: 08/09/2018 Secondary NOT GIVENUNK [place] Insurance:SELF PAY [facility] Number: Effective Repository Date:2018-08-09 08/02/2018 ON J Primary NO J [facility] [id number] Insurance:MYCARE CRSC HOFSTETTERDOB: Community SHAYE *IN [facility] 5405-45-62VLKF[place], [place] Number: Repository [address]Fhy: 330 [id number] [phone] (HP) Date:1777-24-24LOCC [facility]S [facility] [place] [address]TF: 08/02/2018 Secondary NOT GIVENUNK [facility] Insurance:SELF PAY [facility] Number: Effective Repository Date:2018-08-02 07/26/2018 NO J Primary NO J [facility] [id number] Insurance:MYCARE CRSC HOFSTETTERDOB: Community SHAYE *IN [facility] 5934-39-57[place]GFol[place], [place] Number: Repository [address]Csx: 330 [id number] [phone] (HP) Date:4188-43-45YRUZ CLAIMS [facility] [address] [address]WD: 07/26/2018 Secondary NOT GIVENUNK [facility] Insurance:SELF PAY [facility] Number: Effective Repository Date:2018-07-26 07/19/2018 NO J Primary NOT GIVENUNK [facility] [id number] Insurance:SELF PAY [place] Number: Effective Repository [address]Tys: 330) Date:2018-07-19 [phone] () 07/12/2018 NO J Primary NO J [facility] [id number] Insurance:MYCARE CRSC HOFSTETTERDOB: Community SHAYE *IN [facility] 2221-22-24MHLFol[place], [place] Number: Repository [address]Yqg: 330 [id number] [phone] (HP) Date:6847-57-44SCVQ CLAIMS [address] [place] [address]WH: 07/12/2018 Secondary NOT GIVENUNK [facility] Insurance:SELF PAY [facility] Number: Effective Repository Date:2018-07-12 07/07/2018 NO J Primary NO J [facility] [id number] Insurance:MYCARE CRSC HOFSTETTERDOB: Community [place] *IN [facility] 5621-05-86PPJFol[place], [place] Number: Repository [address]Gkf: 330 [id number] [phone] (HP) Date:0913-33-22KBJC CLAIMS [address]PTPO [address] [place] [address]KO: 07/07/2018 Secondary NOT GIVENUNK [facility] Insurance:SELF PAY [facility] Number: Effective Repository Date:2018-07-07 07/07/2018 NO J Primary NO J [facility] [id number] Insurance:MYCARE CRSC HOFSTETTERDOB: Community SHAYE *IN [facility] 3653-64-22QAEFol[place], [place] Number: Repository [address]Smk: 330 [id number] [phone] (HP) Date:1574-18-37PPRV CLAIMS [address] [place] [address]AW: 07/07/2018 Secondary NOT GIVENUNK [facility] Insurance:SELF PAY [facility] Number: Effective Repository Date:2018-07-07 07/07/2018 NO J Primary NO J [facility] [id number] Insurance:MYCARE CRSC HOFSTETTERDOB: Community SHAYE *IN [facility] [id number], [place] Number: Repository [address]Wqq: 330 [id number] [phone] (HP) Date:9441-11-32BGUU CLAIMS [address] [address]FJ: 07/07/2018 Secondary NOT GIVENUNK [facility] Insurance:SELF PAY [facility] Number: Effective Repository Date:2018-07-07 07/07/2018 NO J Primary NO J [facility] [id number] Insurance:MYCARE CRSC HOFSTETTERDOB: Community [place] *IN [facility] 2901-03-85WHCFol[place], [place] Number: Repository [address]Dpd: 330 [id number] [phone] (HP) Date:7461-57-16XAXR CLAIMS [address]PTPO [address] [place] [address]BU: 07/07/2018 Secondary NOT GIVENUNK [facility] Insurance:SELF PAY [facility] Number: Effective Repository Date:2018-07-07 07/07/2018 NO J Primary NO J [facility] [id number] Insurance:MYCARE CRSC HOFSTETTERDOB: [facility] *IN [facility] [id number], [place] Number: Repository [address]Dlb: 330 [id number] [phone] (HP) Date:9570-27-69MOIY CLAIMS [address]PT[address] [place] [address]FD: 07/07/2018 Secondary NOT GIVENUNK [facility] Insurance:SELF PAY [facility] Number: Effective Repository Date:2018-07-07 07/07/2018 NO J Primary NO J [facility] [id number] Insurance:MYCARE CRSC HOFSTETTERDOB: [facility] *IN [facility] 8323-39-67BVYF[place], [place] Number: Repository [address]Rxv: 330 [id number] [phone] (HP) Date:7340-08-63MORD CLAIMS [address] [place] [address]PJ: 07/07/2018 Secondary NOT GIVENUNK [facility] Insurance:SELF PAY [facility] Number: Effective Repository Date:2018-07-07 07/07/2018 NO J Primary NO J [facility] [id number] Insurance:MYCARE CRSC HOFSTETTERDOB: Community [place] *IN [facility] 9621-83-40LHX[place], [place] Number: Repository [address]Ylt: 330 [id number] [phone] (HP) Date:9043-59-53MAFC CLAIMS [address] [place] [address]GK: 07/07/2018 Secondary NOT GIVENUNK [facility] Insurance:SELF PAY [facility] Number: Effective Repository Date:2018-07-07 05/26/2018 NO J Primary NO [facility]FSTETTERDOB: Insurance:[facility] INSANESHELLERB: [facility] [id number] [facility] [id number] Repository [facility] Number: [address] [facility] [address]Ruw: [id number] [place] Date:2017-03-27 [address]Jzp: (172) (HP)Tel: (732) 2782-42-90Bcwm [phone] (WP) Name:NATTN Claims (HP)Tel: (000) Dept[phone] (WP) [address] [place] [address]DC: 05/24/2018 NO J Primary NO J [facility] [id number] Insurance:MYCARE CRSC HOFSTETTERDOB: Community HERITAGE *IN [facility] [id number], [place] Number: Repository [address]Bhc: 330 [id number] [phone] (HP) Date:0531-54-88PJHC CLAIMS [address]PT[address] [place] [address]VK: 05/24/2018 Secondary NOT GIVENUNK [place] Insurance:SELF PAY [facility] Number: Effective Repository Date:2018-05-24 04/14/2018 NO J Primary NO J [facility] [id number] Insurance:MYCARE CRSC HOFSTETTERDOB: Community HERITAGE *IN [facility] 3119-35-89ROWScottsd[place], [place] Number: Repository [address]Kxm: 330 [id number] [phone] (HP) Date:8855-84-35VKUR CLAIMS [facility] [address] [address]KM: 04/14/2018 Secondary NOT GIVENUNK [facility] Insurance:SELF PAY [facility] Number: Effective Repository Date:2018-04-14 04/13/2018 NO J Primary NO J [facility] [id number] Insurance:MYCARE CRSC HOFSTETTERDOB: Community [place] *IN [facility] 4364-67-27SNW[place], [place] Number: Repository [address]Cub: 330 [id number] [phone] Date:1247-61-16RFHV [facility]S [facility] [address] [address]LJ: 04/13/2018 Secondary NOT GIVENUNK [place] Insurance:SELF PAY [facility] Number: Effective Repository Date:2018-04-13 04/13/2018 NO J Primary NO J [facility] [id number] Insurance:MYCARE CRSC HOFSTETTERDOB: Community HERITAGE *IN [facility] 5242-15-74TDKScott[place], [place] Number: Repository [address]Zip: 330 [id number] [phone] () Date:6020-77-90IBHQ CLAIMS [facility] [address] [address]PW: 04/13/2018 Secondary NOT GIVENUNK [place] Insurance:SELF PAY [facility] Number: Effective Repository Date:2018-04-13 04/13/2018 NO J Primary NO J [facility] [id number] Insurance:MYCARE CRSC HOFSTETTERDOB: Community HERITAGE *IN [facility] 5084-85-57PAHScottsdale, [place] Number: Repository [address]Dvv: 330 [id number] [phone] (HP) Date:8074-57-78UWNK CLAIMS [address] [address]QJ: 04/13/2018 Secondary NOT GIVENUNK [facility] Insurance:SELF PAY [facility] Number: Effective Repository Date:2018-04-13 04/13/2018 NO J Primary NO J [facility] [id number] Insurance:MYCARE CRSC HOFSTETTERDOB: Community [place]ITAGE *IN [facility] 0682-06-31SPLScott[place], [place] Number: Repository [address]Nun: 330 [id number] [phone] (HP) Date:6047-28-55YTXB CLAIMS [address] [place] [address]RN: 04/13/2018 Secondary NOT GIVENUNK [facility] Insurance:SELF PAY [facility] Number: Effective Repository Date:2018-04-13 04/13/2018 NO J Primary NO J [place] [id number] Insurance:MYCARE CRSC HOFSTETTERDOB: Community HERITAGE *IN [facility] [id number], [place] Number: Repository [address]Kjv: 330 [id number] [phone] (HP) Date:8826-11-17FOIW CLAIMS [address] [address]SM: 04/13/2018 Secondary NOT GIVENUNK [facility] Insurance:SELF PAY [facility] Number: Effective Repository Date:2018-04-13 04/13/2018 NO J Primary NO J [facility] [id number] Insurance:MYCARE CRSC HOFSTETTERDOB: Community HERITAGE *IN [facility] [id number] [place] [address] Number: Repository [id number]: 330 [id number] [phone] (HP) Date:[id number] CLAIMS [address] [address]GK: 04/13/2018 Secondary NOT GIVENUNK [place] Insurance:SELF PAY Community [facility] Number: Effective Repository Date:2018-04-13 04/13/2018 NO J Primary NO J Inge [id number] Insurance:MYCARE CRSC HOFSTETTERDOB: Community HERITAGE *IN [facility] [id number]: Repository [phone]: [phone] [id number] [phone] () Date:[id number] CLAIMS [address] [place] [id number]: 04/13/2018 Secondary NOT GIVENUNK Inge Insurance:SELF PAY [facility] Number: Effective Repository Date:2018-04-13 04/13/2018 NO J Primary NO J [place] [id number] Insurance:MYCARE CRSC HOFSTETTERDOB: Community HERITAGE *IN [facility] [id number] Number: Repository [id number]: [phone] [id number] [phone] () Date:[id number] CLAIMS DEPT[address] [place] [id number]: 04/13/2018 Secondary NOT GIVENUNK [place] Insurance:SELF PAY [facility] Number: Effective Repository Date:2018-04-13 03/19/2018 [place] Primary [facility] HofstetterDOB: Insurance:MedicarePol HofstetterDOB: System [id number] icy Number: Effective [id number] Repository [place], [place] Date: [address]Bbf: () 03/19/2018 Secondary [facility] Insurance:MedicarePol HofstetterDOB: System icy Number: Effective [id number] Repository Date: 03/19/2018 Tertiary [facility] Insurance:MedicaidPol HofstetterDOB: System icy Number: Effective [id number] Repository Date: 03/18/2018 NO J Primary NO J [place] [id number] Insurance:MEDICARE HOFSTETTERDOB: Community HERITAGE PART A [facility] [id number] Number: Repository [id number]: 330 [id number] [phone] () Date:2018-03-17 03/18/2018 Secondary NO J Inge Insurance:MEDICAIDPol HOFSTETTERDOB: Community icy Number: [id number] Hospital [id number] Repository Date:2018-03-17 03/18/2018 Tertiary NOT GIVENUNK [place] Insurance:SELF PAY [facility] Number: Effective Repository Date:2018-03-17 03/18/2018 NO J Primary NO J Inge [id number] Insurance:MEDICARE HOFSTETTERDOB: Community HERITAGE PART A [facility] [id number] [place] Number: Repository [id number]: 330 [id number] [phone] () Date:2018-03-17 03/18/2018 Secondary NO J Inge Insurance:MEDICAIDPol HOFSTETTERDOB: Community icy Number: [id number] [facility] [id number] Repository Date:2018-03-17 03/18/2018 Tertiary NOT GIVENUNK [place] Insurance:SELF PAY [facility] Number: Effective Repository Date:2018-03-18 03/18/2018 NO J Primary NO J Inge [id number] Insurance:MEDICARE HOFSTETTERDOB: Community HERITAGE PART A [facility] [id number] [place] Number: Repository [id number]: 330 [id number] [phone] () Date:2018-03-17 03/18/2018 Secondary NO J [place] Insurance:MEDICAIDPol HOFSTETTERDOB: Community icy Number: [id number] Hospital [id number] Repository Date:2018-03-17 03/18/2018 Tertiary NOT GIVENUNK [place] Insurance:SELF PAY [facility] Number: Effective Repository Date:2018-03-17 03/18/2018 NO J Primary NO J [place] [id number] Insurance:MEDICARE HOFSTETTERDOB: [facility] HERITAGE PART A BPolicy [id number] Number: Repository [id number]: 330 [id number] [phone] (HP) Date:2018-03-17 03/18/2018 Secondary NO J [place] Insurance:[facility]ICAIDEn[facility] ValleyTETTERDOB: [facility] icy Number: [id number] Hospital [id number] Repository Date:2018-03-17 03/18/2018 Tertiary NOT GIVENUNK [place] Insurance:SELF PAY [facility] Number: Effective Repository Date:2018-03-18 02/24/2018 NO J [facility]: Insurance:[facility]DOB: [facility] [id number] PART BPolicy Number: [id number] Repository MIGUEL ANGELALYSSIA RINCON, [id number] [address] [facility] [address]Psa: Date:2018-02-24 [place] [id number] [address]Vrr: [phone]) (HP)Tel: ([phone]) Name:[facility] [id number] [phone] (WP) Administrators LLCPO (HP)Tel: (000) [address] [address]Okvfjsjoh, 000-0000 (WP) [place] [address]AQ: 02/24/2018 Secondary [facility] Insurance:[facility]: [facility] [id number] Repository MCAIDPolicy Number: 42 MIGUEL ANGEL [id number] [facility] HOSPITALJAY [place] Date:2018-02-24 - [address]Abt: [phone] [phone] Name:Bal Burleson (HP)Tel: [phone], [place] 000-0000 (WP) [address]TS: 02/03/2018 [facility] Primary [facility] HospitalTETTDOB: Insurance:MEDICARE [facility]ENTERTETTERDOB: [facility] [id number] PART BPolicy Number: [id number] Repository MIGUEL ANGELALYSSIA RINCON, [id number] [address] [facility] [address]Npc: Date:2018-02-01 - [place] [id number] [address]Cwn: ([phone]) (HP)Tel: ([phone]) Name:[address] [phone] (WP) Administrators LLCPO (HP)Tel: (000) [address] [address]Bfjefyruf, 000-0000 (WP) [place] [address]PT: 02/03/2018 Secondary [facility]: [facility] [id number] Repository [facility]MCHEALTHIDPolmercy[facility] Number: [address] [id number] [facility] HOSPITALJAY [place], [place] Date:2018-02-01 [address]Wkq: [phone] [phone] Name:XCenpaticoPO Box (HP)Tel: [phone], [place] 000-0000 (WP) [address]IZ: 02/01/2018 Baldemar [facility] Insurance:MEDICARE P[facility] MEMORIAL HOSPITALTTERDOB: [facility] Centerson RdDaltjay jay, PART A BPdep[facility] of [facility] [id number] [facility] [address]Kll: Number: Repository [id number] () Date:2018-02-01 02/01/2018 Secondary NOT GIVENUNK [place] Insurance:SELF PAY [facility] Number: Effective Repository Date:2018-02-01 11/16/2017 BannerDOB: Insurance:MEDICARE P[facility] MEMORIAL HOSPITALTTERDOB: [facility] [id number] PART BPolicy Number: [id number] Repository MIGUEL ANGEL SERGEY, [id number] [address] [facility] [address]Fch: Date:2017-11-16 - [place] [id number] [address]Kcf: (330) (HP)Tel: ([phone]) Name:[facility] [phone] (WP) Administrators LLCPO ()Tel: (000) [address] [address]Rmefainqh, 000-0000 (WP) [place] [address]JL:
== END ==
LOC: OLS.ACH 04:00
PROVIDERS: Visit Provider Family Medicine
DX: I10 Essential (primary) hypertension (principal)
CPT/HCPCS: 36415; 80048

== ENCOUNTER → 2018-08-30 04:00 | Outpatient (REF) | payer MEDICARE, SELFPAY ==
[2018-08-30 08:10] LABS: Anion Gap 9 (5-15); BUN 24 mg/dL (7-18); BUN/Creat Ratio 21.4 RATIO (10-20); Calcium,Total 8.7 mg/dL (8.5-10.1); Chloride 105 mmol/L (98-107); Creatinine, Serum 1.12 mg/dL (0.55-1.02); EST Glomerular Filtration Rate 50 mL/min (>60); Est Glom Filt Rate - Afr Amer 61 mL/min (>60); Glucose 104 mg/dL (74-106); Potassium 4.5 mmol/L (3.5-5.1); Sodium Level 140 mmol/L (136-145)
--- OUTSIDE RECORDS SUMMARY | 2018-12-01 10:52 | XMS RPT_ITS ---
:1940 Author Organization [place] Support Name Relationship Address Phone Aakash Muniz/Liseth Unavailable [address] + [place] [address] R Unavailable Unavailable Unavailable Antony Kimble Unavailable [address] + [place] [address] Aakash Muniz/Liseth Unavailable [address] + [place] [address] R Unavailable Unavailable Unavailable Antony Kimble Unavailable [address] + [place] [address] Aakash Muniz/Liseth Unavailable [address] + [place] [address] R Unavailable Unavailable Unavailable Antony Kimble Unavailable [address] + [place] [address] Aakash Muniz/Liseth Unavailable [address] + [place] [address] R Unavailable Unavailable Unavailable Antony Kimble Unavailable [address] + [place] [address] Aakash Muniz/Liseth Unavailable [address] + [place] [address] R Unavailable Unavailable Unavailable Shyanne, Antony Unavailable [address] + [place] [address] Aakash Muniz/Liseth Unavailable [address] + [place] [address] R Unavailable Unavailable Unavailable Antony Kimble Unavailable [address] + [place] [address] Cristy Aakash/Liseth Unavailable [address] + [place] [address] R Unavailable Unavailable Unavailable Azalia Kimblee Unavailable [address] + [place] [address] BALDEMAR MUNIZ Unavailable Unavailable + BALDEMAR MUNIZ Unavailable Unavailable + Cristy Aakash/Liseth Unavailable [address] + [place] [address] R Unavailable Unavailable Unavailable Azalia Kimblee Unavailable [address] + [place] [address] Cristy Aakash/Liseth Unavailable [address] + [place] [address] R Unavailable Unavailable Unavailable Antony Kimble Unavailable [address] + [place] [address] Aakash Muniz/Liseth Unavailable [address] + [place] [address] R Unavailable Unavailable Unavailable Antony Kimble Unavailable [address] + [place] [address] Aakash Muniz/Liseth Unavailable [address] + [place] [address] R Unavailable Unavailable Unavailable Antony Kimble Unavailable [address] + [place] [address] Aakash Muniz/Liseth Unavailable [address] + [place] [address] R Unavailable Unavailable Unavailable Azalia Kimblee Unavailable [address] + [place] [address] Cristy Aakash/Liseth Unavailable [address] + [place] [address] R Unavailable Unavailable Unavailable Shyanne, Antony Unavailable [address] + [place] [address] Cristy Aakash/Liseth Unavailable [address] + [place] [address] R Unavailable Unavailable Unavailable Antony Kimble Unavailable [address] + [place] [address] CRISTY AAKASH/LISETH Unavailable [address] [facility] [address] + [place] [address] R Unavailable Unavailable Unavailable ANTONY KIMBLE Unavailable [address] + [place] [address] CRISTY AAKASH/LISETH Unavailable [address] + [place] [address] R Unavailable Unavailable Unavailable ANTONY KIMBLE Unavailable [address] + [place] [address] CRISTY AAKASH/LISETH Unavailable [address] + [place] [address] R Unavailable Unavailable Unavailable ANTONY KIMBLE Unavailable [address] + [place] [address] CRISTY AAKASH/LISETH Unavailable [address] + [place] [address] R Unavailable Unavailable Unavailable ANTONY KIMBLE Unavailable [address] + [place] [address] CristyAakash/Liseth Unavailable [address] + [place] [address] R Unavailable Unavailable Unavailable ShyanneHieuAntony Unavailable [address] + [place] [address] Cristy Aakash/Liseth Unavailable [address] + [place] [address] R Unavailable Unavailable Unavailable ShyanneAzaliae Unavailable [address] + [place] [address] BALDEMAR MUNIZ Unavailable Unavailable + BALDEMAR MUNIZ Unavailable Unavailable + CRISTY AAKASH/LISETH Unavailable Unavailable + R Unavailable Unavailable Unavailable SHYANNEHIEUANTONY Unavailable [address] + [place] [address] CRISTY AAKASH/LISETH Unavailable Unavailable + R Unavailable Unavailable Unavailable ANTONY KIMBLE Unavailable [address] + [place] [address] CRISTY AAKASH/LISETH Unavailable Unavailable + R Unavailable Unavailable Unavailable ANTONY KIMBLE Unavailable [address] + [place] [address] CRISTY AAKASH/LISETH Unavailable Unavailable + R Unavailable Unavailable Unavailable ANTONY KIMBLE Unavailable [address] + [place] [address] JONATTJONELLE AAKASH/LISETH Unavailable Unavailable + R Unavailable Unavailable Unavailable ANTONY KIMBLE Unavailable [address] + [place] [address] CRISTY AAKASH/LISETH Unavailable Unavailable + R Unavailable Unavailable Unavailable ANTONY KIMBLE Unavailable [address] + [place] [address] CRISTY AAKASH/LISETH Unavailable Unavailable + R Unavailable Unavailable Unavailable ANTONY KIMBLE Unavailable [address] + [place] [address] CRISTY AAKASH/LISETH Unavailable Unavailable + R Unavailable Unavailable Unavailable ANTONY KIMBLE Unavailable [address] + [place] [address] CRISTY AAAKSH/LISETH Unavailable Unavailable + R Unavailable Unavailable Unavailable ANTONY KIMBLE Unavailable [address] + [place] [address] CRISTY AAKASH/LISETH Unavailable Unavailable + R Unavailable Unavailable Unavailable ANTONY KIMBLE Unavailable [address] + [place] [address] JhonyteAakash nevarez Unavailable Unavailable + JHONYTEDANY AAKASH/LISETH Unavailable Unavailable + R Unavailable Unavailable Unavailable SHYANNE, ANTONY Unavailable [address] + [place] [address] AAKASH MUNIZ/LISETH Unavailable Unavailable + R Unavailable Unavailable Unavailable ANTONY KIMBLE Unavailable [address] + [place] [address] AAKASH MUNIZ/LISETH Unavailable Unavailable + R Unavailable Unavailable Unavailable ANTONY KIMBLE Unavailable [address] + [place] [address] AAKASH MUNIZ/LISETH Unavailable Unavailable + R Unavailable Unavailable Unavailable ANTONY KIMBLE Unavailable [address] + [place] [address] BALDEMAR MUNIZ Unavailable Unavailable + BALDEMAR MUNIZ Unavailable Unavailable + BALDEMAR MUNIZ Unavailable Unavailable + BALDEMAR MUNIZ Unavailable Unavailable + BALDEMAR MUNIZ Unavailable [address] + [place] [address] R Unavailable Unavailable Unavailable BALDEMAR MUNIZ Unavailable Unavailable + BALDEMAR MUNIZ Unavailable Unavailable + Care Team Providers Name Role Phone Jovanni Valdez Attending Unavailable PROVIDER, UNKNOWN Referring Unavailable No, PCP Primary Care Unavailable Bre, Jono Attending Unavailable Petritriciaa, Jono Attending Unavailable Petrity, Jono Attending Unavailable Bre, Jono Attending Unavailable Bre, Jono Attending Unavailable Bre, Jono Attending Unavailable Bre, Jono Attending Unavailable Maylin Real Attending Unavailable Latia Chapa TAIL SAWYER-C Primary Care Unavailable Koram, Claudia Little Admitting Unavailable Koram, Claudia Little Attending Unavailable Koram, Claudia Little Admitting Unavailable Latia Chapa TAIL SAWYER-C Primary Care Unavailable Koram, Claudia Little Consulting Unavailable Koram, Claudia Little Attending Unavailable Koram, Claudia Little Attending Unavailable Seraam, Claudia Little Attending Unavailable Latia Chapa TAIL SAWYER-C Primary Care Unavailable Oleghe, Ifijen Admitting Unavailable Ashelfah, Ghasem Attending Unavailable Oleghe, Ifijen Admitting Unavailable Latia Chapa TAIL SAWYER-C Primary Care Unavailable Oleghe, Ifijen Consulting Unavailable Angella Waddell Attending Unavailable Oleghe, Ifijen Admitting Unavailable Srini Taveras Attending Unavailable Latia Chapa. TAIL SAWYER-C Primary Care Unavailable Maryeletsky, Srini Consulting Unavailable Oleghe, Ifijen Admitting Unavailable Srini Taveras Attending Unavailable Latia Chapa. TAIL SAWYER-C Primary Care Unavailable Tereletsky, Srini Consulting Unavailable Oleghe, Ifijen Admitting Unavailable Dirk Kowalski Attending Unavailable Latia Chapa. TAIL SAWYER-C Primary Care Unavailable Jopperi, Dirk Consulting Unavailable Oleghe, Ifijen Admitting Unavailable Dirk Kowalski Attending Unavailable Latia Chapa. TAIL SAWYER-C Primary Care Unavailable Joppsadia, Dirk Consulting Unavailable Oleghe, Ifijen Admitting Unavailable Latia Chapa. TAIL SAWYER-C Primary Care Unavailable Ashelfah, Ghasem Consulting Unavailable Ashelfah, Ghasem Attending Unavailable Oleghe, Ifijen Admitting Unavailable Alexisah, Ghasem Attending Unavailable Latia Chapa. TAIL SAWYER-C Primary Care Unavailable Ashelfah, Ghasem Consulting Unavailable Latia Chapa. TAIL SAWYER-C Primary Care Unavailable Belg[place] Mtz Attending Unavailable Shan Henry Attending Unavailable Karthik, Efewongbe Referring Unavailable Latia Chapa. TAIL SAWYER-C Primary Care Unavailable Koram, Claudia Little Admitting Unavailable Dex Dirk Attending Unavailable Koram, Claudia Little Admitting Unavailable Koram, Claudia Little Attending Unavailable Latia Chapa. TAIL SAWYER-C Primary Care Unavailable Koram, Claudia Little Consulting Unavailable Koram, Claudia Little Admitting Unavailable Jassi Easley Attending Unavailable Latia Chapa. TAIL SAWYER-C Primary Care Unavailable Kaushal, Jassi Consulting Unavailable Koram, Claudia Little Admitting Unavailable Jassi Easley Attending Unavailable Latia Chapa. TAIL SAWYER-C Primary Care Unavailable Kaushal, Jassi Consulting Unavailable Koram, Claudia Little Admitting Unavailable Jassi Easley Attending Unavailable Latia Chapa TAIL SAWYER-C Primary Care Unavailable Jassi Easley Consulting Unavailable Cadence, Claudia Little Admitting Unavailable Latia Chapa TAIL SAWYER-C Primary Care Unavailable Dirk Kowalski Consulting Unavailable Dirk Kowalski Attending Unavailable Petrilla, Jono Attending Unavailable Petrilla, Jono Attending Unavailable Petrilla, Jono Attending Unavailable Nicholas Marquez Attending Unavailable Koram, Claudia Little Referring Unavailable Petrilla, Jono Attending Unavailable Petrilla, Jono Attending Unavailable Petrilla, Jono Attending Unavailable RIEHM, HARRIETT L Attending Unavailable RIEHM, HARRIETT L Referring Unavailable RIEHM, HARRIETT L Attending Unavailable RIEHM, HARRIETT L Referring Unavailable LATIA CHAPA CNP Attending Unavailable LATIA CHAPA CNP Primary Care Unavailable DR. MAYLIN REAL DO Attending Unavailable LATIA CHAPA CNP Primary Care Unavailable LATIA CHAPA CNP Attending Unavailable LATIA CHAPA CNP Primary Care Unavailable LATIA CHAPA CNP Attending Unavailable LATIA CHAPA CNP Primary Care Unavailable REFERRING REFERRING, BRENT KENNEDY WO ID~[id number] Attending Unavailable LATIA CHAPA CNP Primary Care Unavailable PROBLEMS PROBLEMS DATE TYPE CONDITION / CODE ATTENDING STATUS SOURCE Unknown I10 - Essential Petrilla, Active [facility] 9 (primary) hypertension [facility] / I10(ICD-10) Hospital Repository Unknown D64.9 - Anemia, Petrilla, Active [facility] 8 unspecified / [facility] D64.9(ICD-10) Hospital Repository Unknown E11.9 - Type 2 Petrilla, Active [place] 8 diabetes mellitus [facility] without complications Hospital / E11.9(ICD-10) Repository Unknown M54.12 - Dirk Kowalski Active [facility] 8 Radiculopathy, Community cervical region / Hospital M54.12(ICD-10) Repository Unknown R94.31 - Abnormal Nicholas Marquez Active [facility] 8 electrocardiogram Community [ECG] [EKG] / Hospital R94.31(ICD-10) Repository Unknown M54.9 - Dorsalgia, Mtz, Active [place] 8 unspecified / [place] [facility] M54.9(ICD-10) Hospital Repository Admitting Pain in right shoulder HARRIETT ALEJANDRE Sens[facility] 8 Diagnosis / M25.511(ICD-10) L [facility] ([place]) Repository Unknown I44.7 - Left CarlShan Active [facility] 8 bundle-branch block, Community unspecified / Hospital I44.7(ICD-10) Repository Admitting Anesthesia of skin / Valdez, [place] 8 Diagnosis R20.0(ICD-10) System Repository Admitting Spinal stenosis, Valdez, [place] 8 Diagnosis cervical region / System M48.02(ICD-10) Repository Admitting Other spondylosis with Valdez, [place]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, cervical System region / Repository M47.12(ICD-10) Admitting Urinary tract [facility] 8 Diagnosis infection, site not System specified / Repository N39.0(ICD-10) Admitting Other spondylosis with Valdez, [place] 8 Diagnosis radiculopathy, System cervical region / Repository M47.22(ICD-10) Admitting Type 2 diabetes [facility] 8 Diagnosis mellitus with System hyperglycemia / Repository E11.65(ICD-10) 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) [facility] 8 Diagnosis use of insulin / System Z79.4(ICD-10) Repository Admitting Vitamin D deficiency, [facility] 8 Diagnosis unspecified / System E55.9(ICD-10) Repository Admitting Bradycardia, Valdez, [place] 8 Diagnosis unspecified / System R00.1(ICD-10) Repository Admitting Type 2 diabetes [facility] 8 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 Repository / E11.22(ICD-10) Admitting Hypertensive chronic [facility] 8 Diagnosis kidney disease w stg System 1-4/unsp chr kdny / Repository I12.9(ICD-10) Admitting Chronic kidney Valdez, Jovanni Active [facility] 8 Diagnosis disease, stage 3 System (moderate) / Repository N18.3(ICD-10) 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) 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, Jovanni Active [facility] 8 Diagnosis 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 / System Z79.82(ICD-10) Repository Admitting Athscl heart disease Valdez, 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 / Repository I25.10(ICD-10) Admitting Presence of Valdez, 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(ICD-10) Repository Admitting Left bundle-branch Valdez, Jovanni Active [facility] 8 Diagnosis block, unspecified / System I44.7(ICD-10) Repository Admitting Long QT syndrome / Valdez, Jovanni Active [facility] 8 Diagnosis I45.81(ICD-10) System Repository Admitting Unsp Escherichia coli Valdez, Epiclista [facility] 8 Diagnosis as the cause of System diseases classd elswhr Repository / B96.20(ICD-10) Admitting Constipation, Valdez, Jovanni Active [facility] 8 Diagnosis unspecified / System K59.00(ICD-10) Repository Admitting Hypothyroidism, Valdez, Jovanni Active [facility] 8 Diagnosis unspecified / System E03.9(ICD-10) Repository Admitting Iron deficiency Valdez, Epiclista [facility] 8 Diagnosis anemia, unspecified / System D50.9(ICD-10) Repository Admitting Obesity, unspecified / Valdez, Jovanni Active [facility] 8 Diagnosis E66.9(ICD-10) System Repository Admitting Body mass index (BMI) Valdez, Jovanni Active [facility] 8 Diagnosis 32.0-32.9, adult / System Z68.32(ICD-10) Repository Admitting Coma scale, best motor Valdez, Jovanni Active [facility] 8 Diagnosis response, obeys System commands, admit / Repository R40.2363(ICD-10) Admitting Coma scale, eyes open, Pancho Jovanni [employer] 8 Diagnosis spontaneous, at System hospital admission / Repository R40.2143(ICD-10) Admitting Coma scale, best Pancho Jovanni [employer] 8 Diagnosis verbal response, System oriented, admit / Repository R40.2253(ICD-10) Admitting History of falling / Pancho Jovanni Active [facility] 8 Diagnosis Z91.81(ICD-10) System Repository Admitting Major depressive Pancho [place] 8 Diagnosis disorder, single System episode, unspecified / Repository F32.9(ICD-10) Admitting Insomnia, unspecified Pancho [place] 8 Diagnosis / G47.00(ICD-10) System Repository Admitting Hyperlipidemia, Valdez, [place] 8 Diagnosis unspecified / System E78.5(ICD-10) Repository Admitting 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 I10(ICD-10) Repository Admitting Pure hyperglyceridemia EDUARD BRAND STRATEGIST, Active [facility] 8 Diagnosis / E78.1(ICD-10) [facility] Repository PROCEDURES PROCEDURES No Procedure Records FoundRESULTS RESULTS BASIC METABOLIC Collected: 10/04/2018 Status: F Source: INGE PROFILE (BMP) 5:40 AM [facility] REPOSITORY Order Comment: 303/2 TYPE CODE TESTS [...] GAP 10 Performed By: #### L500.2500 #### [facility] [address] [place], [address] BASIC METABOLIC Collected: 09/27/2018 Status: F Source: [place] PROFILE (BMP) 5:35 AM [facility] REPOSITORY Order Comment: ROOM 303-2 TYPE CODE [...] GAP 9 Performed By: #### L500.2500 #### [facility] [address] [place], [place], [address] BASIC METABOLIC Collected: 09/20/2018 Status: F Source: INGE PROFILE ([facility]) 6:20 AM [facility] REPOSITORY Order Comment: 303/2 TYPE CODE TESTS [...] GAP 7 Performed By: #### L500.2500 #### [facility] [address] [place], [address] BASIC METABOLIC Collected: 09/14/2018 Status: F Source: INGE PROFILE ([facility]) 6:37 AM [facility] REPOSITORY Order Comment: 303/2 TYPE CODE TESTS [...] GAP 10 Performed By: #### L500.2500 #### [facility] [address] [place], [address] BASIC METABOLIC Collected: 09/05/2018 Status: F Source: INGE PROFILE ([facility]) 4:20 AM [facility] REPOSITORY Order Comment: 303/2 TYPE CODE TESTS [...] GAP 11 Performed By: #### L500.2500 #### [facility] [address] [place], [place], [address] BASIC METABOLIC Collected: 08/30/2018 Status: F Source: INGE PROFILE (BMP) 6:20 AM [facility] REPOSITORY Order Comment: 303/2 TYPE CODE TESTS [...] GAP 9 Performed By: #### L500.2500 #### [facility] [address] [facility] [place], [place], [address] BASIC METABOLIC Collected: 08/23/2018 Status: F Source: INGE PROFILE (BMP) 4:49 AM [facility] REPOSITORY Order Comment: 303/2 TYPE CODE TESTS [...] 7 GAP Performed By: #### L500.2500 #### [facility] [address] [place] [address]. [place], [place], [address] MRI SPINE CERVICAL Observed: 08/18/2018 Status: F Source: [facility] W/O CONTRAST 2:00 PM [facility] REPOSITORY ORIGINAL [...] PROFILE (BMP) 6:05 AM [facility] REPOSITORY Order Comment: ROOM 303 TYPE CODE [...] GAP 9 Performed By: #### L500.2500 #### [facility] [address] [place], [place], [id number] BASIC METABOLIC Collected: 08/09/2018 Status: F Source: INGE PROFILE (BMP) 6:40 AM [facility] REPOSITORY Order Comment: ROOM 303 TYPE CODE [...] GAP 10 Performed By: #### L500.2500 #### [facility] [address] [place], [place], [id number] CBC-COMPLETE BLOOD CNT Collected: 08/09/2018 Status: F Source: INGE NO DIFF 6:40 AM [facility] REPOSITORY Order Comment: ROOM 303 TYPE CODE [...] MPV 12.4 Performed By: #### L100.0500 #### [facility] [address] [place], [place], [id number] CBC-COMPLETE BLOOD CNT Collected: 08/02/2018 Status: F Source: INGE NO DIFF 5:55 AM [facility] REPOSITORY Order Comment: 303-2 TYPE CODE TESTS [...] MPV 12.3 Performed By: #### L100.0500 #### [facility] [address] [place], [address] BASIC METABOLIC Collected: 08/02/2018 Status: F Source: INGE PROFILE (BMP) 5:55 AM [facility] REPOSITORY Order Comment: 303-2 TYPE CODE TESTS [...] GAP 9 Performed By: #### L500.2500 #### [facility] [address] [place], [address] CBC-COMPLETE BLOOD CNT Collected: 07/26/2018 Status: F Source: INGE NO DIFF 7:35 AM [facility] REPOSITORY Order Comment: RM: 303/2 TYPE CODE [...] MPV 11.5 Performed By: #### L100.0500 #### [facility] [address] [place], [place], [address] BASIC METABOLIC Collected: 07/26/2018 Status: F Source: INGE PROFILE ([facility]) 7:35 AM [facility] REPOSITORY Order Comment: RM: 303/2 TYPE CODE [...] GAP 6 Performed By: #### L500.2500 #### [facility] [address] [place], [address] 12 LEAD ELECTROCARDIOGRAM Observed: 07/20/2018 Status: F Source: INGE 2:51 PM [facility] REPOSITORY [facility] Cardiovascular Services [address] [place] [address] 12 Lead EKG 07/08/18 0456 MR#: [id number] Acct: [id number] Name: NO MUNIZ Rep #: [id number] : 1940 78 From: Shan Henry MD Attending Dr: Dirk Kowalski DO Status: DIS DEISY Ordering Dr: Jassi Easley MD Date: 07/08/18 Location: [facility] Sex: F C Admitted: 07/07/18 Test [...] UNCONFIRMED Confirmed by SHAN HENRY MD ([id number]), copy editor DAMIAN MCCRACKEN ([id number]) on 07/20/2018 2:50:35 PM Referred By: ARIS Confirmed By:SHAN HENRY MD 07/20/18 1450 Date Shan Henry MD CC: TAIL SAWYERKristopher Chapa; Dirk Kowalski DO; Jassi Easley MD Signed CBC-COMPLETE BLOOD CNT Collected: 07/19/2018 Status: F Source: INGE NO DIFF 5:40 AM [facility] REPOSITORY Order Comment: ROOM 303 TYPE CODE [...] MPV 13.8 Performed By: #### L100.0500 #### [facility] [address] [place], [place], [address] BASIC METABOLIC Collected: 07/19/2018 Status: F Source: [place] PROFILE (BMP) 5:40 AM [facility] REPOSITORY Order Comment: ROOM 303 TYPE CODE [...] GAP 9 Performed By: #### L500.2500 #### [facility] [address] [place], [address] 12 LEAD ELECTROCARDIOGRAM Observed: 07/14/2018 Status: F Source: INGE 4:13 PM [facility] REPOSITORY [facility] Services [address] [place] [address] 12 Lead EKG 07/08/18 2104 MR#: [id number] Acct: [id number] Name: NO MUNIZ John Rep #: [id number] : 1940 78 From: Jassi Lord MD Attending Dr: Dirk Kowalski DO Status: DIS DEISY Ordering Dr: Claudia Cruz MD Date: 07/08/18 Location: [facility] Sex: F C Admitted: 07/07/18 Test [...] Abnormal ECG Confirmed by JAIME EL, JASSI ([id number]), copy editor DAMIAN MCCRACKEN ([id number]) on 07/14/2018 4:13:10 PM Referred By: CADENCE Confirmed By:JASSI LORD MD 07/14/18 1613 Date Jassi Lord MD CC: HIMANSHU Chapa; Dirk Kowalski DO; Claudia Cruz MD Signed 12 LEAD ELECTROCARDIOGRAM Observed: 07/12/2018 Status: F Source: INGE 12:47 PM [facility] REPOSITORY [facility] Cardiovascular Services [address] [place] [address] 12 Lead EKG 07/07/18 1610 MR#: [id number] Acct: [id number] Name: HOWARDALEJANDRINANO COTTON Rep #: [id number] : 1940 78 From: Nicholas Marquez MD Attending Dr: Dirk Kowalski DO Status: DIS DEISY Ordering Dr: Claudia Cruz MD Date: 07/07/18 Location: [facility] Sex: F C Admitted: 07/07/18 Test [...] IS UNCONFIRMED Confirmed by NICHOLAS MARQUEZ ([id number]), copy editor DAMIAN MCCRACKEN ([id number]) on 07/12/2018 12:47:18 PM Referred By: CADENCE Confirmed By:NICHOLAS MARQUEZ 07/12/18 1247 Date Nicholas Marquez MD CC: TAIL SAWYERKristopher Chapa; Dirk Kowalski DO; Claudia Cruz MD Signed 12 LEAD ELECTROCARDIOGRAM Observed: 07/12/2018 Status: F Source: [place] 8:58 AM [facility] REPOSITORY [facility] Cardiovascular Services [address] [place] [address] 12 Lead EKG 07/07/18 1451 MR#: [id number] Acct: [id number] Name: NO MUNIZ Rep #: [id number] : 1940 78 From: Nicholas Marquez MD Attending Dr: Dirk Kowalski DO Status: DIS DEISY Ordering Dr: Tello Valdez MD Date: 07/07/18 Location: [facility] Sex: F C Admitted: 07/07/18 Test [...] Abnormal ECG Confirmed by NICHOLAS MARQUEZ ([id number]), copy editor DAMIAN MCCRACKEN ([id number]) on 07/12/2018 8:58:41 AM Referred By: PANCHO Confirmed By:NICHOLAS MARQUEZ 07/12/1858 Date Nicholas Marquez MD CC: HIMANSHU Chapa; Dirk Kowalski DO; Tello Valdez MD Signed 12 LEAD ELECTROCARDIOGRAM Observed: 07/12/2018 Status: F Source: INGE 8:57 AM [facility] REPOSITORY [facility] Cardiovascular Services [address] [place] [address] 12 Lead EKG 07/07/18 1310 MR#: [id number] Acct: [id number] Name: NO MUNIZ Rep #: [id number] : 1940 78 From: Nicholas Marquez MD Attending Dr: Dirk Kowalski DO Status: DIS DEISY Ordering Dr: Tello Valdez MD Date: 07/07/18 Location: [facility] Sex: F C Admitted: 07/07/18 Test [...] Abnormal ECG Confirmed by NICHOLAS MARQUEZ ([id number]), copy editor DAMIAN MCCRACKEN ([id number]) on 07/12/2018 8:57:16 AM Referred By: PANCHO Confirmed By:NICHOLAS MARQUEZ 07/12/18 0857 Date Nicholas Marquez MD CC: HIMANSHU Chapa; Dirk Kowalski DO; Tello Valdez MD Signed CBC-COMPLETE BLOOD CNT Collected: 07/12/2018 Status: F Source: INGE NO DIFF 7:00 AM [facility] REPOSITORY Order Comment: 303-2 TYPE CODE TESTS [...] MPV 12.1 Performed By: #### L100.0500 #### [facility] [address] [place], [address] BASIC METABOLIC Collected: 07/12/2018 Status: F Source: INGE PROFILE (BMP) 7:00 AM [facility] REPOSITORY Order Comment: 303-2 TYPE CODE TESTS [...] GAP 4 Performed By: #### L500.2500 #### [facility] [address] [place], [address] HEMOGLOBIN A1C Collected: 07/12/2018 Status: F Source: [place] 5:00 AM [facility] REPOSITORY Order Comment: 1030:H47 TYPE CODE TESTS RESULT OUT OF RANGE REFERENCE UNITS LAB L501.9985 4.2-6.3 % Normal HGB A1C 6.3 Performed By: #### L501.9985 #### [facility] [address] [place], [address] DISCHARGE SUMMARY Observed: 07/11/2018 Status: F Source: [place] 4:53 PM [facility] REPOSITORY [facility] Medical Records Department [address] [place] [address] Discharge Summary 07/11/18 1107 MR#: [id number] Acct: [id number] Name: NO MUNIZ Rep #: [id number] : 1940 78 From: Shavon DOWNS PCP: HIMANSHU Gill Status: DIS DEISY Y Location: [place] [address] <Shavon Bradley - Last Filed: 07/11/18 11:18> [...] Jens Thurman MD at 13:54 EDT Tel [phone], Service support , Shoulder X-Ray 07/07/18 17:00 IMPRESSION: 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 Electronically Signed: Luisito Harper DO at 17:17 EDT Tel [phone], Service support , Operations: None Procedures: Stress [...] Primary Care Physician in: 1 Week Disposition: Long Term facility Minutes spent on discharge:: 35 Patient [...] symptoms and was seeing a neurosurgeon at [facility]. Patient will need to follow-up with [...] Discharge Activity: Return to Normal Activity Disposition: Long Term facility Minutes spent on discharge:: 35 Patient Condition:: Stable Meaningful Use Info Meaningful Use Diagnoses (Choose all that apply): None applicable Code Visit Inpatient E AND M: 62627 Disch Hosp 07/11/18 1119 <Electronically signed by Shavon DOWNS> Date Shavon HOLLANDC 07/11/18 1653<Electronically signed by Dirk Kowalski DO> Cosigner Signature (if applicable): Date Dirk Kowalski DO CC: HIMANSHU Bradley; HIMANSHU Chapa; Dirk Kowalski DO Signed TRANSFER TO [facility] Observed: 07/11/2018 Status: F Source: [facility] 1:50 PM [facility] REPOSITORY [facility] Medical Records Department [address] [place], [place] [address] [address] [facility] Care MR#: [id number] Acct: [id number] Name: NO MUNIZ Rep #: [id number] : 1940 78 From: Shavon HOLLANDC PCP: HIMANSHU Gill Status: ADM DEISY NO MUNIZ (Patient) (Health Ins. Claim No.) (Day of Discharge to Facility) Certification of patient admission REQUIRED AT TIME OF ADMISSION. I CERTIFY THAT POST-HOSPITAL ECF SERVICES ARE REQUIRED TO BE GIVEN ON AN IN-PATIENT BASIS BECAUSE OF THE ABOVE NAMED PATIENT'S NEED FOR ASSISTED CARE ON A CONTINUING BASIS FOR THE CONDITION(S) FOR WHICH HE/SHE WAS RECEIVING IN-PATIENT HOSPITAL SERVICES PRIOR TO HIS/HER TRANSFER TO THE F. 07/11/18 2130 <Electronically signed by Dirk Kowalski DO> Date: [...] Cosigner Signature: Date Dirk Kowalski DO CC: TAIL SAWYER-Loli Chapa BEDSIDE GLUCOSE Collected: 07/11/2018 Status: F Source: INGE 10:59 AM [facility] REPOSITORY TYPE CODE TESTS RESULT OUT OF REFERENCE UNITS RANGE LAB L501.080 70-110 mg/dL High BEDSIDE GLU 140 Result Comment: MANAGEMENT OF PATIENT CARE PER NURSING PROTOCOL Performed By: #### L501.080 #### [facility] Point of Care [facility] [place] [address] BEDSIDE GLUCOSE Collected: 07/11/2018 Status: F Source: INGE 6:45 AM [facility] REPOSITORY TYPE CODE TESTS RESULT OUT OF RANGE REFERENCE UNITS LAB L501.080 70-110 mg/dL Normal BEDSIDE GLU 93 Result Comment: MANAGEMENT OF PATIENT CARE PER NURSING PROTOCOL Performed By: #### L501.080 #### [facility] Point of Care [address] [place] [address] BASIC METABOLIC Collected: 07/11/2018 Status: F Source: INGE PROFILE (BMP) 5:35 AM [facility] REPOSITORY TYPE CODE TESTS RESULT OUT OF [...] Performed By: #### L500.2500, L501.2300, L501.5200 #### [facility] [address] [place], [address] PHOSPHORUS Collected: 07/11/2018 Status: F Source: INGE 5:35 AM [facility] REPOSITORY TYPE CODE TESTS RESULT OUT OF RANGE REFERENCE UNITS LAB L501.2300 2.5-4.9 mg/dL Normal PHOS 4.4 Performed By: #### L500.2500, L501.2300, L501.5200 #### [facility] [address] [place], [place], [address] MAGNESIUM Collected: 07/11/2018 Status: F Source: [place] 5:35 AM [facility] REPOSITORY TYPE CODE TESTS RESULT OUT OF RANGE REFERENCE UNITS LAB L501.5200 1.6-2.6 mg/dL Normal MG 2.2 Performed By: #### L500.2500, L501.2300, L501.5200 #### [facility] [address] [facility] [address] [place], [address] CBC W/DIFF, AUTOMATED Collected: 07/11/2018 Status: F Source: [place] 5:35 AM [facility] REPOSITORY TYPE CODE TESTS RESULT OUT OF [...] Lymph 2.84 Performed By: #### L100.0100 #### [facility] [address] [place], [address] BEDSIDE GLUCOSE Collected: 07/10/2018 Status: F Source: INGE 10:08 PM [facility] REPOSITORY TYPE CODE TESTS RESULT OUT OF REFERENCE UNITS RANGE LAB L501.080 70-110 mg/dL High BEDSIDE GLU 168 Result Comment: MANAGEMENT OF PATIENT CARE PER NURSING PROTOCOL Performed By: #### L501.080 #### [facility] Point of Care [address] [place] [address] BEDSIDE GLUCOSE Collected: 07/10/2018 Status: F Source: INGE 4:59 PM [facility] REPOSITORY TYPE CODE TESTS RESULT OUT OF REFERENCE UNITS RANGE LAB L501.080 70-110 mg/dL High BEDSIDE GLU 183 Result Comment: MANAGEMENT OF PATIENT CARE PER NURSING PROTOCOL Performed By: #### L501.080 #### [facility] Point of Care [address] [place] [address] BEDSIDE GLUCOSE Collected: 07/10/2018 Status: F Source: INGE 11:28 AM [facility] REPOSITORY TYPE CODE TESTS RESULT OUT OF RANGE REFERENCE UNITS LAB L501.080 70-110 mg/dL Normal BEDSIDE GLU 75 Result Comment: MANAGEMENT OF PATIENT CARE PER NURSING PROTOCOL Performed By: #### L501.080 #### [facility] Point of Care [address] [place] [address] BEDSIDE GLUCOSE Collected: 07/10/2018 Status: F Source: INGE 6:48 AM [facility] REPOSITORY TYPE CODE TESTS RESULT OUT OF REFERENCE UNITS RANGE LAB L501.080 70-110 mg/dL High BEDSIDE GLU 143 Result Comment: MANAGEMENT OF PATIENT CARE PER NURSING PROTOCOL Performed By: #### L501.080 #### [facility] Point of Care [address] [place] [address] BEDSIDE GLUCOSE Collected: 07/09/2018 Status: F Source: INGE 9:12 PM [facility] REPOSITORY TYPE CODE TESTS RESULT OUT OF REFERENCE UNITS RANGE LAB L501.080 70-110 mg/dL High BEDSIDE GLU 145 Result Comment: MANAGEMENT OF PATIENT CARE PER NURSING PROTOCOL Performed By: #### L501.080 #### [facility] Point of Care [address] [place] [address] BEDSIDE GLUCOSE Collected: 07/09/2018 Status: F Source: INGE 4:41 PM [facility] REPOSITORY TYPE CODE TESTS RESULT OUT OF REFERENCE UNITS RANGE LAB L501.080 70-110 mg/dL High BEDSIDE GLU 125 Result Comment: MANAGEMENT OF PATIENT CARE PER NURSING PROTOCOL Performed By: #### L501.080 #### [facility] Point of Care [address] [place] [address] BEDSIDE GLUCOSE Collected: 07/09/2018 Status: F Source: INGE 11:31 AM [facility] REPOSITORY TYPE CODE TESTS RESULT OUT OF REFERENCE UNITS RANGE LAB L501.080 70-110 mg/dL High BEDSIDE GLU 121 Result Comment: MANAGEMENT OF PATIENT CARE PER NURSING PROTOCOL Performed By: #### L501.080 #### [facility] Point of Care [address] [place] [address] BEDSIDE GLUCOSE Collected: 07/09/2018 Status: F Source: INGE 6:51 AM [facility] REPOSITORY TYPE CODE TESTS RESULT OUT OF RANGE REFERENCE UNITS LAB L501.080 70-110 mg/dL Normal BEDSIDE GLU 82 Result Comment: MANAGEMENT OF PATIENT CARE PER NURSING PROTOCOL Performed By: #### L501.080 #### [facility] Point of Care [address] [place] [address] CBC W/DIFF, AUTOMATED Collected: 07/09/2018 Status: F Source: INGE 6:25 AM [facility] REPOSITORY TYPE CODE TESTS RESULT OUT OF [...] Lymph 2.26 Performed By: #### L100.0100 #### [facility] [place], [address] COMPREHENSIVE METABOLIC Collected: 07/09/2018 Status: F Source: INGE [place]OON 6:25 AM [facility] REPOSITORY TYPE CODE TESTS RESULT OUT OF [...] Performed By: #### L500.4050, L501.2300, L501.5200 #### [facility] [address] [place], [address] PHOSPHORUS Collected: 07/09/2018 Status: F Source: [place] 6:25 AM [facility] REPOSITORY TYPE CODE TESTS RESULT OUT OF RANGE REFERENCE UNITS LAB L501.2300 2.5-4.9 mg/dL High PHOS 5.1 Performed By: #### L500.4050, L501.2300, L501.5200 #### [facility] [address] [place], [address] MAGNESIUM Collected: 07/09/2018 Status: F Source: INGE 6:25 AM [facility] REPOSITORY TYPE CODE TESTS RESULT OUT OF RANGE REFERENCE UNITS LAB L501.5200 1.6-2.6 mg/dL Normal MG 2.2 Performed By: #### L500.4050, L501.2300, L501.5200 #### [facility] [address] [place], [address] BEDSIDE GLUCOSE Collected: 07/08/2018 Status: F Source: INGE 9:49 PM [facility] REPOSITORY TYPE CODE TESTS RESULT OUT OF REFERENCE UNITS RANGE LAB L501.080 70-110 mg/dL High BEDSIDE GLU 164 Result Comment: MANAGEMENT OF PATIENT CARE PER NURSING PROTOCOL Performed By: #### L501.080 #### [facility] Point of Care [address] [place] [address] BEDSIDE GLUCOSE Collected: 07/08/2018 Status: F Source: INGE 4:33 PM [facility] REPOSITORY TYPE CODE TESTS RESULT OUT OF REFERENCE UNITS RANGE LAB L501.080 70-110 mg/dL High BEDSIDE GLU 179 Result Comment: MANAGEMENT OF PATIENT CARE PER NURSING PROTOCOL Performed By: #### L501.080 #### [facility] Point of Care [address] [place] [address] BEDSIDE GLUCOSE Collected: 07/08/2018 Status: F Source: INGE 11:25 AM [facility] REPOSITORY TYPE CODE TESTS RESULT OUT OF REFERENCE UNITS RANGE LAB L501.080 70-110 mg/dL High BEDSIDE GLU 116 Result Comment: MANAGEMENT OF PATIENT CARE PER NURSING PROTOCOL Performed By: #### L501.080 #### [facility] Point of Care [address] [place] [address] STRESS REPORT Observed: 07/08/2018 Status: F Source: INGE 9:42 AM [facility] REPOSITORY [facility] Cardiovascular Services [address] [place] [address] MR#: [id number] Acct: [id number] Name: NO MUNIZ Rep #: [id number] : 1940 78 From: Jassi Lord MD Primary Care: Latia Chapa, TAIL SAWYER-C Status: ADM DEISY Ordering Dr: Sex: F [...] 60 %. This note was generated with [employer] dictation software. It may contain incorrect words, spelling, and punctuation that were not noted in checking the note before signing. 07/08/18941 <Electronically signed by Jassi Lord MD> Date Jsasi Lord MD CC: HIMANSHU Chapa; Jassi Easley MD Date Dictated: 07/08/18938 Date Transcribed: 07/08/18938 Solution Design Engineer: PM Signed BEDSIDE GLUCOSE Collected: 07/08/2018 Status: F Source: INGE 5:36 AM [facility] REPOSITORY TYPE CODE TESTS RESULT OUT OF RANGE REFERENCE UNITS LAB L501.080 70-110 mg/dL Normal BEDSIDE GLU 90 Result Comment: MANAGEMENT OF PATIENT CARE PER NURSING PROTOCOL Performed By: #### L501.080 #### [facility] [place] [address] BASIC METABOLIC Collected: 07/08/2018 Status: F Source: INGE PROFILE (BMP) 5:28 AM [facility] REPOSITORY TYPE CODE TESTS RESULT OUT OF [...] GAP 6 Performed By: #### L500.2500 #### [facility] [address] [place], [address] CBC W/DIFF, AUTOMATED Collected: 07/08/2018 Status: F Source: [place] 5:28 AM [facility] REPOSITORY TYPE CODE TESTS RESULT OUT OF [...] Lymph 1.88 Performed By: #### L100.0100 #### [facility] [address] [facility] [address] [facility] [address] PROTHROMBIN TIME W/INR Collected: 07/08/2018 Status: F Source: [place] 5:28 AM [facility] REPOSITORY TYPE CODE TESTS RESULT OUT OF RANGE REFERENCE UNITS LAB L300.4150 11.7-14.9 SECONDS High PROTIME 20.4 LAB L300.4200 Normal INR 1.7 Performed By: #### L300.3900, L300.4310 #### [facility] [address] [facility] [address] PARTIAL THROMBOPLAST Collected: 07/08/2018 Status: F Source: [place] TIME 5:28 AM [facility] REPOSITORY TYPE CODE TESTS RESULT OUT OF REFERENCE UNITS RANGE LAB L300.4310 24.1-36.2 Seconds High PTT 38.0 Performed By: #### L300.3900, L300.4310 #### [facility] [place], [address] BEDSIDE GLUCOSE Collected: 07/07/2018 Status: F Source: [place] 10:21 PM [facility] REPOSITORY TYPE CODE TESTS RESULT OUT OF RANGE REFERENCE UNITS LAB L501.080 70-110 mg/dL Normal BEDSIDE GLU 103 Result Comment: MANAGEMENT OF PATIENT CARE PER NURSING PROTOCOL Performed By: #### L501.080 #### [facility] Point of Care [address] [place] [address] HISTORY AND PHYSICAL Observed: 07/07/2018 Status: F Source: INGE EXAM 8:54 PM [facility] REPOSITORY [facility] Medical Records Department [address] [place], [place] [address] [place] [address] History and Physical 07/07/18 1544 MR#: [id number] Acct: [id number] Name: NO MUNIZ Rep #: [id number] : 1940 78 From: Claudia Cruz MD PCP: Latia Chapa, TAIL SAWYER-C Status: ADM DEISY Y Location: [place] [address] Problem List (1) Chest pain Status: Acute [...] surgery Psychiatric History: No pertinent psych hx BREAKER TENDER History: No pertinent BREAKER TENDER history Lives: With Family Smoking Status: Never [...] mins. Code Visit OBSV E AND M: 28819 Initial observation care L3 Procedures: 46650 Advncd Care Plan 30 Min 07/07/182053 <Electronically signed by Claudia Cruz MD> Date Claudia Cruz MD Cosigner Signature: Date (if applicable) CC: TAIL SAWYER-C Latia Chapa; Claudia Cruz MD Signed TROPONIN-I Collected: 07/07/2018 Status: F Source: INGE 7:11 PM [facility] REPOSITORY Order Comment: 'TROP' Serial specimen #1, #2 or #3: 3 TYPE CODE TESTS RESULT OUT OF RANGE REFERENCE UNITS LAB L501.4010 <0.045 ng/mL Normal < 0.015 TROPONIN-I Result Comment: TROPONIN-I EXPECTED VALUES <0.045 Negative 0.045 - 0.590 Consistent with Cardiac Damage > OR = 0.600 Critical Value Not every elevated troponin is indicative of NM. These values should be used with clinical judgement in examining the patient's clinical picture for diagnosis. To establish a diagnosis of NM versus myocardial injury, there must be a demonstrated rise and/or fall in the troponin values, in addition to ischemic symptoms, EKG changes, new regional wall motion abnormality, and/or angiographical evidence. PLEASE NOTE: REFERENCE RANGES EDITED 18 Performed By: #### L501.4010 #### [facility] [address] [place], [place], [address] BEDSIDE GLUCOSE Collected: 07/07/2018 Status: F Source: [place] 4:47 PM [facility] REPOSITORY TYPE CODE TESTS RESULT OUT OF RANGE REFERENCE UNITS LAB L501.080 70-110 mg/dL Normal BEDSIDE GLU 89 Result Comment: MANAGEMENT OF PATIENT CARE PER NURSING PROTOCOL Performed By: #### L501.080 #### [facility] Point of Care [address] [place], [place] [address] TROPONIN-I Collected: 07/07/2018 Status: F Source: [place] 4:23 PM [facility] REPOSITORY Order Comment: 'TROP' Serial specimen #1, #2 or #3: 2 TYPE CODE TESTS RESULT OUT OF RANGE REFERENCE UNITS LAB L501.4010 <0.045 ng/mL Normal < 0.015 TROPONIN-I Result Comment: TROPONIN-I EXPECTED VALUES <0.045 Negative 0.045 - 0.590 Consistent with Cardiac Damage > OR = 0.600 Critical Value Not every elevated troponin is indicative of NM. These values should be used with clinical judgement in examining the patient's clinical picture for diagnosis. To establish a diagnosis of NM versus myocardial injury, there must be a demonstrated rise and/or fall in the troponin values, in addition to ischemic symptoms, EKG changes, new regional wall motion abnormality, and/or angiographical evidence. PLEASE NOTE: REFERENCE RANGES EDITED 18 Performed By: #### L501.4010 #### [facility] [address], [address] SHOULDER MIN 2 VIEWS Observed: 07/07/2018 Status: F Source: [place] 4:13 PM [facility] REPOSITORY [facility] Imaging Services [address] [place] [address] Shoulder min 2 Views MR#: [id number] Acct: [id number] Name: NO MUNIZ Rep #: [id number] : 1940 F 78 From: Luisito Harper DO PCP: HIMANSHU Gill Status: ADM DEISY Study: Shoulder min 2 Views Date of Exam: 07/07/18 Exam# [id number] Ordering Dr: Claudia Cruz MD STUDY: X-RAY [...] Luisito Harper DO at 17:17 EDT Tel [phone], Service support , CC: TAIL SAWYER-C Latia Chapa; Claudia Cruz MD Solution Design Engineer: Signed EMERGENCY DEPARTMENT Observed: 07/07/2018 Status: F Source: [place] SUMMARY 3:04 PM [facility] REPOSITORY [facility] Medical Records Department [address] [place] [address] Emergency Department Summary 07/07/18 1500 MR#: [id number] Acct: [id number] Name: NO MUNIZ Rep #: [id number] : 1940 78 From: Tello Valdez MD [...] vessel bypass surgery 10 years ago at [facility]. She has history of type 2 diabetes [...] 64 with a left bundle branch block. [place] interval is normal. There is no acute [...] of hypercholesterolemia This note was generated with [employer] dictation software. It may contain incorrect words, [...] your Primary Care Provider. Call [facility] ([phone]) or report to the closest Emergency Room. Call 911 if necessary. 07/07/18 1504 <Electronically signed by Tello Valdez MD> Date Tello Valdez MD Cosigner Signature (If Indicated): Date CC: TAIL SAWYERKristopher Chapa CHEST 1 VIEW Observed: 07/07/2018 Status: F Source: [place] (PORTABLE) 1:27 PM [facility] REPOSITORY [facility] Imaging Services [address] [place] [address] Chest 1 View (Portable) MR#: [id number] Acct: [id number] Name: NO MUNIZ Rep #: [id number] : 1940 F 78 From: Jens Thurman MD PCP: HIMANSHU Gill Status: PRE ER Study: Chest 1 View (Portable) Date of Exam: 07/07/18 Exam# [id number] Ordering Dr: Tello Valdez MD STUDY: X-RAY [...] Jens Thurman MD at 13:54 EDT Tel [phone], Service support , CC: HIMANSHU Chapa; Tello Valdez MD Solution Design Engineer: Signed CBC W/DIFF, AUTOMATED Collected: 07/07/2018 Status: F Source: INGE 1:14 PM [facility] REPOSITORY TYPE CODE TESTS RESULT OUT OF [...] Lymph 2.52 Performed By: #### L100.0100 #### [facility] [address] [place], [place] [address] [place], [place], [address] BASIC METABOLIC Collected: 07/07/2018 Status: F Source: [place] PROFILE (BMP) 1:14 PM [facility] REPOSITORY TYPE CODE TESTS RESULT OUT OF [...] 9 Performed By: #### L500.2500, L501.4010 #### [facility] [address] [place], [address] TROPONIN-I Collected: 07/07/2018 Status: F Source: [place] 1:14 PM [facility] REPOSITORY TYPE CODE TESTS RESULT OUT OF RANGE REFERENCE UNITS LAB L501.4010 <0.045 ng/mL Normal < 0.015 TROPONIN-I Result Comment: TROPONIN-I EXPECTED VALUES <0.045 Negative 0.045 - 0.590 Consistent with Cardiac Damage > OR = 0.600 Critical Value Not every elevated troponin is indicative of NM. These values should be used with clinical judgement in examining the patient's clinical picture for diagnosis. To establish a diagnosis of NM versus myocardial injury, there must be a demonstrated rise and/or fall in the troponin values, in addition to ischemic symptoms, EKG changes, new regional wall motion abnormality, and/or angiographical evidence. PLEASE NOTE: REFERENCE RANGES EDITED 18 Performed By: #### L500.2500, L501.4010 #### [facility] [address] [place], [address] 12 LEAD ELECTROCARDIOGRAM Observed: 05/27/2018 Status: F Source: [place] 1:16 PM [facility] REPOSITORY [facility] Cardiovascular Services [address] [place] [address] 12 Lead EKG 05/24/18 1722 MR#: [id number] Acct: [id number] Name: NO MUNIZ Rep #: [id number] : 1940 78 From: Shan Henry MD [...] ECG Confirmed by CARL EL, SHAN ([id number]), copy editor DAMIAN MCCRACKEN ([id number]) on 05/27/2018 1:16:14 PM Referred By: VIOLET Confirmed By:SHAN HENRY MD 05/27/18 1316 Date Shan Henry MD CC: TAIL SAWYER-C Latia Chapa; Belgica Mtz MD Signed CMP Collected: 05/26/2018 Status: F Source: [facility] 9:40 AM [facility] REPOSIT[facility] TYPE CODE TESTS [...] #### CMP, TSH, GFR, FT4, VIDH #### [address] [address] #### CBC, ADIFF, ANEU #### [place] [address] [place], [place] [address] TSH Collected: 05/26/2018 Status: F Source: [facility] 9:40 AM [facility] REPOSITORY TYPE CODE TESTS RESULT OUT OF RANGE REFERENCE UNITS LAB TSH(LOINC) 0.36-3.74 mcIU/mL TSH 2.03 Performed By: #### CMP, TSH, GFR, FT4, VIDH #### [address] [address] #### CBC, ADIFF, ANEU #### [place] [address] [place], [place] [address] .GFR Collected: 05/26/2018 Status: F Source: [facility] 9:40 AM [facility] REPOSITORY TYPE CODE TESTS RESULT OUT OF REFERENCE UNITS RANGE LAB GFRAA(LOINC ml/min/1.73 ) sqm GFR 46 [place] Result Comment: GFR Population mean for , [...] #### CMP, TSH, GFR, FT4, VIDH #### [place] [address] #### CBC, ADIFF, ANEU #### [place] [address] [place], [place] [address] FT4 Collected: 05/26/2018 Status: F Source: [facility] 9:40 AM [facility] REPOS[facility] TYPE CODE TESTS RESULT OUT OF RANGE REFERENCE UNITS LAB FT4(LOINC) 0.76-1.46 ng/dL Free T4 0.99 Performed By: #### CMP, TSH, GFR, FT4, VIDH #### [place] [address] #### CBC, ADIFF, ANEU #### [place] [address] [place], [place] [address] CBC Collected: 05/26/2018 Status: F Source: [facility] 9:40 AM [facility] REPOSITORY TYPE CODE TESTS [...] #### CMP, TSH, GFR, FT4, VIDH #### [place] [address] #### CBC, ADIFF, ANEU #### [address] [address] .AUTO DIFF Collected: 05/26/2018 Status: F Source: [facility] 9:40 AM [facility] REPOSITORY TYPE CODE TESTS RESULT OUT OF [...] #### CMP, TSH, GFR, FT4, VIDH #### [place] [address] #### CBC, ADIFF, ANEU #### [address] [address] .NEUABS Collected: 05/26/2018 Status: F Source: [facility] 9:40 AM [facility] REPOSITORY TYPE CODE TESTS RESULT OUT OF REFERENCE UNITS RANGE LAB ANEU(LOINC) 2.85-6.16 10 3/mcL High Neutrophil, 8.30 Absolute Performed By: #### CMP, TSH, GFR, FT4, VIDH #### [place] [address] #### CBC, ADIFF, ANEU #### [address] [place], [place] [address] VIDH Collected: 05/26/2018 Status: F Source: [facility] 9:40 AM [facility] REPOSITORY TYPE CODE TESTS RESULT OUT OF RANGE REFERENCE UNITS LAB VIDH(LOINC) ng/mL Vit. D 73 25-Hydroxy Result Comment: Interpretive Values Based on Total 25(OH)D: Severe Deficiency <20 ng/mL Mild to Moderate Deficiency 20-30 ng/mL Optimum Levels 30-100 ng/mL Toxicity Possible >100 ng/mL Performed By: #### CMP, TSH, GFR, FT4, VIDH #### [facility] [address] [place] [address] #### CBC, ADIFF, ANEU #### [facility] [address] [place], [place] [address] EMERGENCY DEPARTMENT Observed: 05/25/2018 Status: F Source: [facility] 12:19 AM [facility] REPOSITORY [facility] Medical Records Department [address] [place] [address] Emergency Department Summary 05/24/18 1523 MR#: [id number] Acct: [id number] Name: NO MUNIZ Rep #: [id number] : 1940 78 From: Belgica Mtz MD [...] extremity contusion This note was generated with [employer] dictation software. It may contain incorrect words, spelling, and punctuation that were not noted in review of the chart prior to signing ED Disposition - Plan for ED Patient: Chief Complaint: Fall Referrals: Latia Chapa, TAIL SAWYER-C [Primary Care Provider] - What to do if you have Problems For any increased pain, shortness of breath, bleeding, nausea or vomiting, chest pain, or any unexpected problems, contact your Primary Care Provider. Call [facility] [facility] ([phone]) or report to the closest Emergency Room. Call 911 if necessary. 05/25/18 0019 <Electronically signed by Belgica Mtz MD> Date Belgica Mtz MD Cosigner Signature (If Indicated): Date CC: HIMANSHU Chapa DISCHARGE INSTRUCTION Observed: 05/24/2018 Status: F Source: [place] 8:00 PM [facility] REPOSITORY [facility] Medical Records Department [address] [place] [address] Discharge Instruction 05/24/181957 MR#: [id number] Acct: [id number] Name: NO MUNIZ Rep #: [id number] : 1940 78 From: Belgica Mtz MD [...] your Primary Care Provider. Call [facility] ([phone]) or report to the closest Emergency Room. Call 911 if necessary. 05/24/181999 <Electronically signed by Belgica Mtz MD> Date Belgica Mtz MD Cosigner Signature (If Indicated): Date CC: HIMANSHU Chapa URINALYSIS, COMPLETE Collected: 05/24/2018 Status: F Source: [place] 6:11 PM [facility] REPOSITORY Order Comment: Order Date: 09/11/18 How [...] URINE SEEN Performed By: #### L400.0001 #### [facility] [address] [place], [address] CBC W/DIFF, AUTOMATED Collected: 05/24/2018 Status: F Source: [place] 5:58 PM [facility] REPOSITORY TYPE CODE TESTS RESULT OUT OF [...] Lymph 2.58 Performed By: #### L100.0100 #### [facility] [address] [place], [address] BASIC METABOLIC Collected: 05/24/2018 Status: F Source: [place] PROFILE ([facility]) 5:58 PM [facility] REPOSITORY TYPE CODE TESTS RESULT OUT OF [...] GAP 8 Performed By: #### L500.2500 #### [facility] [address] [facility] [place], [address] BRAIN/HEAD WITHOUT Observed: 05/24/2018 Status: F Source: [place] CONTRAST 3:21 PM [facility] REPOSITORY [facility] Imaging Services [address] [place] [address] Brain/Head without Contrast MR#: [id number] Acct: [id number] Name: NO MUNIZ John Rep #: [id number] : 1940 F 78 From: Jens Thurman MD PCP: Latia Chapa, TAIL SAWYER-C Status: REG ER Study: Brain/Head without Contrast Date of Exam: 05/24/18 Exam# [id number] Ordering Dr: Belgica Mtz MD STUDY: CT [...] Jens Thurman MD at 16:01 EDT Tel [phone], Service support , CC: HIMANSHU Chapa; Belgica Mtz MD Solution Design Engineer: Signed SPINE CERVICAL Observed: 05/24/2018 Status: F Source: [place] WITHOUT CONTRAS 3:21 PM [facility] REPOSITORY [facility] Imaging Services [address] [place] [address] [place] [address] Spine Cervical without Contras MR#: [id number] Acct: [id number] Name: NO MUNIZ Rep #: [id number] : 1940 F 78 From: Jens Thurman MD PCP: HIMANSHU Gill Status: REG ER Study: Spine Cervical without Contras Date of Exam: 05/24/18 Exam# [id number] Ordering Dr: Belgica Mtz MD STUDY: CT [...] Jens Thurman MD at 16:04 EDT Tel [phone], Service support , CC: JESU-C Latia Chapa; Belgica Mtz MD Solution Design Engineer: Signed KNEE 4 OR MORE Observed: 05/24/2018 Status: F Source: [place] VIEWS 3:21 PM [facility] REPOSITORY [facility] Imaging Services [address] [place] [address] Knee 4 or More Views MR#: [id number] Acct: [id number] Name: NO MUNIZ Rep #: [id number] : 1940 F 78 From: Yasir Dawson MD PCP: Laita Chapa, JESU-C Status: REG ER Study: Knee 4 or More Views Date of Exam: 05/24/18 Exam# [id number] Ordering Dr: Belgica Mtz MD STUDY: X-RAY [...] 16:42 EDT , Service support , CC: TAIL SAWYER-Loli Chapa; Belgica Mzt MD Solution Design Engineer: Signed HUMERUS MIN 2 VIEWS Observed: 05/24/2018 Status: F Source: [place] 3:21 PM [facility] REPOSITORY [facility] Imaging Services [address] [place] [address] Humerus min 2 Views MR#: [id number] Acct: [id number] Name: NO MUNIZ Rep #: [id number] : 1940 F 78 From: Yasir Dawson MD PCP: HIMANSHU Gill Status: REG ER Study: Humerus min 2 Views Date of Exam: 05/24/18 Exam# [id number] Ordering Dr: Belgica Mtz MD STUDY: X-RAY [...] , CC: HIMANSHU Chapa; Belgica Mtz MD Solution Design Engineer: Signed CHEST PA AND LATERAL Observed: 05/24/2018 Status: F Source: [place] 3:21 PM [facility] REPOSITORY [facility] Imaging Services [address] [place] [address] Chest PA and Lateral MR#: [id number] Acct: [id number] Name: NO MUNIZ Rep #: [id number] : 1940 F 78 From: Yasir Dawson MD PCP: HIMANSHU Gill Status: REG ER Study: Chest PA and Lateral Date of Exam: 05/24/18 Exam# [id number] Ordering Dr: Belgica Mtz MD STUDY: X-RAY [...] , CC: HIMANSHU Chapa; Belgica Mtz MD Solution Design Engineer: Signed FOREARM 2 VIEWS Observed: 05/24/2018 Status: F Source: [place] 3:21 PM [facility] REPOSITORY [facility] Imaging Services [address] [place] [address] Forearm 2 Views MR#: [id number] Acct: [id number] Name: NO MUNIZ Rep #: [id number] : 1940 F 78 From: Yasir Dawson MD PCP: HIMANSHU Gill Status: REG ER Study: Forearm 2 Views Date of Exam: 05/24/18 Exam# [id number] Ordering Dr: Belgica Mtz MD STUDY: X-RAY [...] , CC: HIMANSHU Chapa; Belgica Mtz MD Solution Design Engineer: Signed 12 LEAD ELECTROCARDIOGRAM Observed: 04/25/2018 Status: F Source: [place] 3:25 PM [facility] REPOSITORY [facility] Cardiovascular Services [address] [place] [address] 12 Lead EKG 04/14/18 0724 MR#: [id number] Acct: [id number] Name: NO MUNIZ Rep #: [id number] : 1940 78 From: Shan Henry MD [...] ECG Confirmed by SHAN HENRY MD ([id number]), copy editor DAMIAN MCCRACKEN ([id number]) on 04/25/2018 3:25:29 PM Referred By: KARTHIK Confirmed By:SHAN HENRY MD 04/25/18 1525 Date Shan Henry MD CC: TAIL SAWYER-C Latia Chapa; Anant Rodriguez; Blas Angeles M.D. Signed DISCHARGE SUMMARY Observed: 04/19/2018 Status: F Source: [place] 2:26 PM [facility] REPOSITORY [facility] Medical Records Department [address] [place] [address] Discharge Summary 04/19/18 1359 MR#: [id number] Acct: [id number] Name: NO MUNIZ Rep #: [id number] : 1940 78 From: Anant Rodriguez MD PCP: HIMANSHU Gill Status: ADM DEISY Y Location: MS3 [id number] Discharge Date and Diagnosis Date of Admission: [...] Jens Thurman MD at 13:13 EDT Tel [phone], Service support , Chest CTA 04/13/18 13:51 IMPRESSION: Several small peripheral intraluminal filling defects involving pulmonary branches as described. Possible solid left renal mass. 7.8 mm x 4.9 mm noncalcified nodule in the right upper lobe adjacent to the right minor fissure. Enlarged right lobe of the thyroid. Electronically Signed: Jens Thurman MD at 14:29 EDT Tel [phone], Service support , Cervical Spine MRI 04/13/18 [...] to be stable to be discharged to retirement facility. She continued to complain of neck [...] evaluate the patient and recommended placement to retirement facility. Patient discharged to retirement facility in a stable medical condition, discharged [...] Primary Care Physician in: 1-2 weeks. Disposition: Long Term facility Minutes spent on discharge:: 32 Patient Condition:: Stable Medical Necessity - Tobacco Use Smoking Status: Never smoker Meaningful Use Info Meaningful Use Diagnoses (Choose all that apply): None applicable Code Visit Inpatient E AND M: 45061 Disch Hosp 04/19/18 1426 <Electronically signed by Anant Rodriguez MD> Date Anant Rodriguez MD Cosigner Signature (if applicable): Date CC: TAIL SAWYER-C Latia Chapa; Anant Rodriguez Signed BEDSIDE GLUCOSE Collected: 04/19/2018 Status: F Source: [place] 12:01 PM [facility] REPOSITORY TYPE CODE TESTS RESULT OUT OF REFERENCE UNITS RANGE LAB L501.080 70-110 mg/dL High BEDSIDE GLU 213 Result Comment: MANAGEMENT OF PATIENT CARE PER NURSING PROTOCOL Performed By: #### L501.080 #### [facility] Point of Care [address] [place] [address]. [place] [address] TRANSFER TO EXTENDED Observed: 04/19/2018 Status: F Source: [place] CARE 9:43 AM [facility] REPOSITORY [facility] Medical Records Department [address] [place] [address] [place] [address] [facility] Care MR#: [id number] Acct: [id number] Name: NO MUNIZ Rep #: [id number] : 1940 78 From: Anant Rodriguez MD PCP: HIMANSHU Gill Status: ADM DEISY NO MUNIZ (Patient) (Health Ins. Claim No.) (Day of Discharge to Facility) Certification of patient admission REQUIRED AT TIME OF ADMISSION. I CERTIFY THAT POST-HOSPITAL ECF SERVICES ARE REQUIRED TO BE GIVEN ON AN IN-PATIENT BASIS BECAUSE OF THE ABOVE NAMED PATIENT'S NEED FOR ASSISTED CARE ON A CONTINUING BASIS FOR THE [...] Up Care Primary Care Physician: Latia Chapa, TAIL SAWYER-C [Primary Care Provider] - Please follow up with your Primary Care Physician in: 1-2 weeks. 04/19/18 0943 <Electronically signed by Anant Rodriguez MD> Date Anant Rodriguez MD CC: TAIL SAWYER-C Latia Olivaskeith GoldbergEduard Signed BEDSIDE GLUCOSE Collected: 04/19/2018 Status: F Source: [place] 6:09 AM [facility] REPOSITORY TYPE CODE TESTS RESULT OUT OF REFERENCE UNITS RANGE LAB L501.080 70-110 mg/dL High BEDSIDE GLU 163 Result Comment: MANAGEMENT OF PATIENT CARE PER NURSING PROTOCOL Performed By: #### L501.080 #### [facility] Point of Care [address] [place] [address] BEDSIDE GLUCOSE Collected: 04/18/2018 Status: F Source: [place] 10:08 PM [facility] REPOSITORY TYPE CODE TESTS RESULT OUT OF RANGE REFERENCE UNITS LAB L501.080 70-110 mg/dL Normal BEDSIDE GLU 98 Result Comment: MANAGEMENT OF PATIENT CARE PER NURSING PROTOCOL Performed By: #### L501.080 #### [facility] Point of Care [address] [place] [address] BEDSIDE GLUCOSE Collected: 04/18/2018 Status: F Source: [place] 5:03 PM [facility] REPOSITORY TYPE CODE TESTS RESULT OUT OF REFERENCE UNITS RANGE LAB L501.080 70-110 mg/dL High BEDSIDE GLU 194 Result Comment: MANAGEMENT OF PATIENT CARE PER NURSING PROTOCOL Performed By: #### L501.080 #### [facility] Point of Care [address] [place] [address] BEDSIDE GLUCOSE Collected: 04/18/2018 Status: F Source: [place] 2:28 PM [facility] REPOSITORY TYPE CODE TESTS RESULT OUT OF REFERENCE UNITS RANGE LAB L501.080 70-110 mg/dL High BEDSIDE GLU 211 Result Comment: MANAGEMENT OF PATIENT CARE PER NURSING PROTOCOL Performed By: #### L501.080 #### [facility] Point of Care [address] [place] [address] 12 LEAD ELECTROCARDIOGRAM Observed: 04/18/2018 Status: F Source: [place] 1:42 PM [facility] REPOSITORY [facility] Cardiovascular Services [address] [place] [address] 12 Lead EKG 04/13/18 1321 MR#: [id number] Acct: [id number] Name: NO MUNIZ Rep #: [id number] : 1940 78 From: Jassi Lord MD [...] ECG Confirmed by JAIME EL, JASSI ([id number]), copy editor DAMIAN MCCRACKEN (56) on 04/18/2018 1:41:44 PM Referred By: LIAM Confirmed By:JASSI LORD MD 04/18/18 1341 Date Jassi Lord MD CC: TAIL SAWYER-C Latia Chapa; Anant Rodriguez; Elin Barboza DO Signed BEDSIDE GLUCOSE Collected: 04/18/2018 Status: F Source: [place] 11:59 AM [facility] REPOSITORY TYPE CODE TESTS RESULT OUT OF RANGE REFERENCE UNITS LAB L501.080 70-110 mg/dL Normal BEDSIDE GLU 71 Result Comment: MANAGEMENT OF PATIENT CARE PER NURSING PROTOCOL Performed By: #### L501.080 #### [facility] Point of Care [address] [place], [place] [address] BEDSIDE GLUCOSE Collected: 04/18/2018 Status: F Source: INGE 6:52 AM [facility] REPOSITORY TYPE CODE TESTS RESULT OUT OF RANGE REFERENCE UNITS LAB L501.080 70-110 mg/dL Normal BEDSIDE GLU 100 Result Comment: MANAGEMENT OF PATIENT CARE PER NURSING PROTOCOL Performed By: #### L501.080 #### [facility] Point of Care [address] [place] [address] BEDSIDE GLUCOSE Collected: 04/17/2018 Status: F Source: INGE 10:44 PM [facility] REPOSITORY TYPE CODE TESTS RESULT OUT OF REFERENCE UNITS RANGE LAB L501.080 70-110 mg/dL High BEDSIDE GLU 148 Result Comment: MANAGEMENT OF PATIENT CARE PER NURSING PROTOCOL Performed By: #### L501.080 #### [facility] Point of Care [address] [place] [address] BEDSIDE GLUCOSE Collected: 04/17/2018 Status: F Source: INGE 4:20 PM [facility] REPOSITORY TYPE CODE TESTS RESULT OUT OF REFERENCE UNITS RANGE LAB L501.080 70-110 mg/dL High BEDSIDE GLU 146 Result Comment: MANAGEMENT OF PATIENT CARE PER NURSING PROTOCOL Performed By: #### L501.080 #### [facility] Point of Care [address] [place] [address] BEDSIDE GLUCOSE Collected: 04/17/2018 Status: F Source: INGE 11:16 AM [facility] REPOSITORY TYPE CODE TESTS RESULT OUT OF REFERENCE UNITS RANGE LAB L501.080 70-110 mg/dL High BEDSIDE GLU 212 Result Comment: MANAGEMENT OF PATIENT CARE PER NURSING PROTOCOL Performed By: #### L501.080 #### [facility] Point of Care [address] [place] [address] BEDSIDE GLUCOSE Collected: 04/17/2018 Status: F Source: INGE 7:40 AM [facility] REPOSITORY TYPE CODE TESTS RESULT OUT OF RANGE REFERENCE UNITS LAB L501.080 70-110 mg/dL Normal BEDSIDE GLU 101 Result Comment: MANAGEMENT OF PATIENT CARE PER NURSING PROTOCOL Performed By: #### L501.080 #### [facility] Point of Care [address] [place] [address] BEDSIDE GLUCOSE Collected: 04/17/2018 Status: F Source: INGE 3:55 AM [facility] REPOSITORY TYPE CODE TESTS RESULT OUT OF RANGE REFERENCE UNITS LAB L501.080 70-110 mg/dL Normal BEDSIDE GLU 100 Result Comment: MANAGEMENT OF PATIENT CARE PER NURSING PROTOCOL Performed By: #### L501.080 #### [facility] Point of Care [address] [place] [address] BEDSIDE GLUCOSE Collected: 04/16/2018 Status: F Source: INGE 9:06 PM [facility] REPOSITORY TYPE CODE TESTS RESULT OUT OF REFERENCE UNITS RANGE LAB L501.080 70-110 mg/dL High BEDSIDE GLU 154 Result Comment: MANAGEMENT OF PATIENT CARE PER NURSING PROTOCOL Performed By: #### L501.080 #### [facility] Point of Care [address] [place] [address] BEDSIDE GLUCOSE Collected: 04/16/2018 Status: F Source: INGE 4:50 PM [facility] REPOSITORY TYPE CODE TESTS RESULT OUT OF RANGE REFERENCE UNITS LAB L501.080 70-110 mg/dL Normal BEDSIDE GLU 99 Result Comment: MANAGEMENT OF PATIENT CARE PER NURSING PROTOCOL Performed By: #### L501.080 #### [facility] Point of Care [address] [place] [address] BEDSIDE GLUCOSE Collected: 04/16/2018 Status: F Source: INGE 11:33 AM [facility] REPOSITORY TYPE CODE TESTS RESULT OUT OF REFERENCE UNITS RANGE LAB L501.080 70-110 mg/dL High BEDSIDE GLU 169 Result Comment: MANAGEMENT OF PATIENT CARE PER NURSING PROTOCOL Performed By: #### L501.080 #### [facility] Point of Care [address] [place] [address] BEDSIDE GLUCOSE Collected: 04/16/2018 Status: F Source: INGE 8:12 AM [facility] REPOSITORY TYPE CODE TESTS RESULT OUT OF REFERENCE UNITS RANGE LAB L501.080 70-110 mg/dL High BEDSIDE GLU 129 Result Comment: MANAGEMENT OF PATIENT CARE PER NURSING PROTOCOL Performed By: #### L501.080 #### [facility] Point of Care [address] [place] [address] BEDSIDE GLUCOSE Collected: 04/15/2018 Status: F Source: INGE 10:06 PM [facility] REPOSITORY TYPE CODE TESTS RESULT OUT OF REFERENCE UNITS RANGE LAB L501.080 70-110 mg/dL High BEDSIDE GLU 297 Result Comment: MANAGEMENT OF PATIENT CARE PER NURSING PROTOCOL Performed By: #### L501.080 #### [facility] Point of Care [address] [place] [address] BEDSIDE GLUCOSE Collected: 04/15/2018 Status: F Source: INGE 5:08 PM [facility] REPOSITORY TYPE CODE TESTS RESULT OUT OF REFERENCE UNITS RANGE LAB L501.080 70-110 mg/dL High BEDSIDE GLU 287 Result Comment: MANAGEMENT OF PATIENT CARE PER NURSING PROTOCOL Performed By: #### L501.080 #### [facility] Point of Care [address] [place] [address] BEDSIDE GLUCOSE Collected: 04/15/2018 Status: F Source: INGE 12:04 PM [facility] REPOSITORY TYPE CODE TESTS RESULT OUT OF REFERENCE UNITS RANGE LAB L501.080 70-110 mg/dL High BEDSIDE GLU 386 Result Comment: MANAGEMENT OF PATIENT CARE PER NURSING PROTOCOL Performed By: #### L501.080 #### [facility] Point of Care [address] [place] [address] BEDSIDE GLUCOSE Collected: 04/15/2018 Status: F Source: INGE 7:50 AM [facility] REPOSITORY TYPE CODE TESTS RESULT OUT OF REFERENCE UNITS RANGE LAB L501.080 70-110 mg/dL High BEDSIDE GLU 346 Result Comment: MANAGEMENT OF PATIENT CARE PER NURSING PROTOCOL Performed By: #### L501.080 #### [facility] Point of Care [address] [place] [address] BEDSIDE GLUCOSE Collected: 04/14/2018 Status: F Source: INGE 9:01 PM [facility] REPOSITORY TYPE CODE TESTS RESULT OUT OF REFERENCE UNITS RANGE LAB L501.080 70-110 mg/dL High BEDSIDE GLU 415 Result Comment: MANAGEMENT OF PATIENT CARE PER NURSING PROTOCOL Performed By: #### L501.080 #### [facility] Point of Care [address] [place] [address] BEDSIDE GLUCOSE Collected: 04/14/2018 Status: F Source: INGE 5:37 PM [facility] REPOSITORY TYPE CODE TESTS RESULT OUT OF REFERENCE UNITS RANGE LAB L501.080 70-110 mg/dL High BEDSIDE GLU 415 Result Comment: MANAGEMENT OF PATIENT CARE PER NURSING PROTOCOL Performed By: #### L501.080 #### [facility] Point of Care [address] [place] [address] BEDSIDE GLUCOSE Collected: 04/14/2018 Status: F Source: INGE 12:34 PM [facility] REPOSITORY TYPE CODE TESTS RESULT OUT OF REFERENCE UNITS RANGE LAB L501.080 70-110 mg/dL High BEDSIDE GLU 422 Result Comment: MANAGEMENT OF PATIENT CARE PER NURSING PROTOCOL Performed By: #### L501.080 #### [facility] Point of Care [address] [place] [address] BEDSIDE GLUCOSE Collected: 04/14/2018 Status: F Source: INGE 7:37 AM [facility] REPOSITORY TYPE CODE TESTS RESULT OUT OF REFERENCE UNITS RANGE LAB L501.080 70-110 mg/dL High BEDSIDE GLU 375 Result Comment: MANAGEMENT OF PATIENT CARE PER NURSING PROTOCOL Performed By: #### L501.080 #### [facility] Point of Care [address] [place] [address] CRP Collected: 04/14/2018 Status: F Source: [place] 5:22 AM [facility] REPOSITORY TYPE CODE TESTS RESULT OUT OF RANGE REFERENCE UNITS LAB L501.6710 0.0-3.0 mg/L High 17.10 C-REACTIVE PROT Result Comment: C-Reactive Protein (CRP) provides useful information for the diagnosis, therapy and monitoring of inflammatory processes and associated diseases. For the evaluation of Relative Risk for Cardiovascular Disease, a High Sensitivity CRP (HSCRP) should be ordered. Performed By: #### L501.6710 #### [facility] [address] [place], [address] ERYTHROCYTE SED RATE Collected: 04/14/2018 Status: F Source: [place] 5:22 AM [facility] REPOSITORY TYPE CODE TESTS RESULT OUT OF RANGE REFERENCE UNITS LAB L102.0000 0-30 mm/hr High SED RATE 55 Performed By: #### L101.9900 #### [facility] [address] [place], [address] BEDSIDE GLUCOSE Collected: 04/13/2018 Status: F Source: INGE 9:30 PM [facility] REPOSITORY TYPE CODE TESTS RESULT OUT OF REFERENCE UNITS RANGE LAB L501.080 70-110 mg/dL High BEDSIDE GLU 208 Result Comment: MANAGEMENT OF PATIENT CARE PER NURSING PROTOCOL Performed By: #### L501.080 #### [facility] Point of Care [address] [place] [address] HISTORY AND PHYSICAL Observed: 04/13/2018 Status: F Source: [place] EXAM 9:16 PM [facility] REPOSITORY [facility] Medical Records Department [address] [place] [address] History and Physical 04/13/181948 MR#: [id number] Acct: [id number] Name: NO MUNIZ Rep #: [id number] : 1940 78 From: Blas Angeles MD PCP: HIMANSHU Gill Status: ADM DEISY Y Location: [place] [address] ADDENDUM by Blas Angeles M.D. on 04/13/18 [...] surgery Psychiatric History: No pertinent psych hx BREAKER TENDER History: No pertinent BREAKER TENDER history Smoking Status: Never smoker Review of [...] concerning then will have to transfer [facility] where surgery was done. 2. Incidental [...] HTN Code Visit Inpatient E AND M: 88126 Init Hosp L3 04/13/18 2017 <Electronically signed by Blas Angeles MD> Date Blas Angeles MD Cosigner Signature: Date (if applicable) CC: TAIL SAWYER-C Latia Chapa; Blas Angeles M.D. Signed SPINE CERVICAL Observed: 04/13/2018 Status: F Source: [place] (ROUTINE) 4:31 PM [facility] REPOSITORY [facility] Imaging Services [address] [place] [address] Spine Cervical (Routine) MR#: [id number] Acct: [id number] Name: NO MUNIZ Rep #: [id number] : 1940 F 78 From: Adia Mccracken MD PCP: HIMANSHU Gill Status: ADM DEISY Study: Spine Cervical (Routine) Date of Exam: 04/13/18 Exam# [id number] Ordering Dr: Blas Angeles MD STUDY: MRI [...] , CC: HIMANSHU Chapa; Blas Angeles M.D. Solution Design Engineer: Signed EMERGENCY DEPARTMENT Observed: 04/13/2018 Status: F Source: [place] SUMMARY 3:36 PM [facility] REPOSITORY [facility] Medical Records Department [address] [place] [address] Emergency Department Summary 04/13/18 1532 MR#: [id number] Acct: [id number] Name: NO MUNIZ Rep #: [id number] : 1940 78 From: Elin Barboza DO [...] who her surgeon was. Patient presents from [facility]. Patient also complains of right sided sharp [...] pulmonary emboli] This note was generated with [employer] dictation software. It may contain incorrect words, [...] your Primary Care Provider. Call [facility] ([phone]) or report to the closest Emergency Room. Call 911 if necessary. 04/13/18 1536 <Electronically signed by Elin Barboza DO> Date Elin Barboza DO Cosigner Signature (If Indicated): Date CC: TAIL SAWYER-C Latia Chapa CTA CHEST W/WO Observed: 04/13/2018 Status: F Source: INGE CONTRAST 1:51 PM [facility] REPOSITORY [facility] Imaging Services [address] [place] [address] CTA Chest W/WO Contrast MR#: [id number] Acct: [id number] Name: NO MUNIZ Rep #: [id number] : 1940 F 78 From: Jens Thurman MD PCP: HIMANSHU Gill Status: REG ER Study: CTA Chest W/WO Contrast Date of Exam: 04/13/18 Exam# [id number] Ordering Dr: Elin Barboza DO STUDY: CTA [...] Jens Thurman MD at 14:29 EDT Tel [phone], Service support , CC: HIMANSHU Chapa; Elin Barboza DO Solution Design Engineer: Signed CBC W/DIFF, AUTOMATED Collected: 04/13/2018 Status: F Source: INGE 1:20 PM [facility] REPOSITORY TYPE CODE TESTS RESULT OUT OF [...] Lymph 1.76 Performed By: #### L100.0100 #### [facility] [address] [place], [address] BASIC METABOLIC Collected: 04/13/2018 Status: F Source: INGE PROFILE (BMP) 1:20 PM [facility] REPOSITORY TYPE CODE TESTS RESULT OUT OF [...] 9 Performed By: #### L500.2500, L501.4010 #### [facility] [place], [address] TROPONIN-I Collected: 04/13/2018 Status: F Source: INGE 1:20 PM [facility] REPOSITORY TYPE CODE TESTS RESULT OUT OF RANGE REFERENCE UNITS LAB L501.4010 <0.045 ng/mL Normal < 0.015 TROPONIN-I Result Comment: TROPONIN-I EXPECTED VALUES <0.045 Negative 0.045 - 0.590 Consistent with Cardiac Damage > OR = 0.600 Critical Value Not every elevated troponin is indicative of NM. These values should be used with clinical judgement in examining the patient's clinical picture for diagnosis. To establish a diagnosis of NM versus myocardial injury, there must be a demonstrated rise and/or fall in the troponin values, in addition to ischemic symptoms, EKG changes, new regional wall motion abnormality, and/or angiographical evidence. PLEASE NOTE: REFERENCE RANGES EDITED 18 Performed By: #### L500.2500, L501.4010 #### [facility] [address] [place], [address] D-DIMER QUANTITATIVE Collected: 04/13/2018 Status: F Source: [place] (DVT/PE) 1:20 PM [facility] REPOSITORY TYPE CODE TESTS RESULT OUT OF [...] SAME . Performed By: #### L300.8000 #### [facility] [address] [place], [address] CHEST 1 VIEW Observed: 04/13/2018 Status: F Source: [place] (PORTABLE) 12:56 PM [facility] REPOSITORY [facility] Imaging Services [address] [place] [address] Chest 1 View (Portable) MR#: [id number] Acct: [id number] Name: NO MUNIZ Rep #: [id number] : 1940 F 78 From: Jens Thurman MD PCP: Latia Chapa NP-Loli Status: REG ER Study: Chest 1 View (Portable) Date of Exam: 04/13/18 Exam# [id number] Ordering Dr: Elin Barboza DO STUDY: X-RAY [...] Jens Thurman MD at 13:13 EDT Tel [phone], Service support , CC: HIMANSHU Chapa; Elin Barboza DO Solution Design Engineer: Signed GLUCOSE,BEDSIDE Collected: 03/23/2018 Status: F Source: [place] 12:55 PM SYSTEM REPOSITORY TYPE CODE TESTS RESULT OUT OF RANGE REFERENCE UNITS LAB BGLU 70-100 mg/dL High 229 Glucose,Beds destini Result Comment: Test performed by glucose meter. Results may be 10%-15% lower than serum/plasma values. (CLIA ID [id number]) Performed By: #### BGLU #### [facility] [address] [place] [phone] GLUCOSE,BEDSIDE Collected: 03/23/2018 Status: F Source: [place] 6:58 AM SYSTEM REPOSITORY TYPE CODE TESTS RESULT OUT OF RANGE REFERENCE UNITS LAB BGLU 70-100 mg/dL High 282 Glucose,Beds destini Result Comment: Test performed by glucose meter. Results may be 10%-15% lower than serum/plasma values. (CLIA ID [id number]) Performed By: #### BGLU #### [facility] [address] [place] [phone] POTASSIUM Collected: 03/23/2018 Status: F Source: [place] 5:50 AM SYSTEM REPOSITORY TYPE CODE TESTS RESULT OUT OF RANGE REFERENCE UNITS LAB K3 3.5-5.1 mmol/L Normal Potassium 5.0 Performed By: #### K3 #### [facility] [address] [place] [address] GLUCOSE,BEDSIDE Collected: 03/23/2018 Status: F Source: [place] 4:53 AM SYSTEM REPOSITORY TYPE CODE TESTS RESULT OUT OF RANGE REFERENCE UNITS LAB BGLU 70-100 mg/dL High 340 Glucose,Beds destini Result Comment: Test performed by glucose meter. Results may be 10%-15% lower than serum/plasma values. (CLIA ID [id number]) Performed By: #### BGLU #### [facility] [address] [place] [address] GLUCOSE,BEDSIDE Collected: 03/23/2018 Status: F Source: [place] 2:49 AM SYSTEM REPOSITORY TYPE CODE TESTS RESULT OUT OF RANGE REFERENCE UNITS LAB BGLU 70-100 mg/dL High 241 Glucose,Beds destini Result Comment: Test performed by glucose meter. Results may be 10%-15% lower than serum/plasma values. (CLIA ID [id number]) Performed By: #### BGLU #### [facility] [address] [place] [phone] HEMOGRAM Collected: 03/23/2018 Status: F Source: [place] 12:23 AM SYSTEM REPOSITORY TYPE CODE TESTS [...] Performed By: #### HEMOG, BMP3, MG3 #### [facility] [place] [address] BASIC METABOLIC PANEL Collected: 03/23/2018 Status: F Source: [place] 12:23 AM SYSTEM REPOSITORY TYPE CODE TESTS [...] Performed By: #### HEMOG, BMP3, MG3 #### [facility] [address] [place] [phone] MAGNESIUM Collected: 03/23/2018 Status: F Source: [place] 12:23 AM SYSTEM REPOSITORY TYPE CODE TESTS RESULT OUT OF RANGE REFERENCE UNITS LAB MG3 1.6-2.3 mg/dL Normal Magnesium 1.8 Performed By: #### HEMOG, BMP3, MG3 #### [facility] [address] [place] [phone] GLUCOSE,BEDSIDE Collected: 03/22/2018 Status: F Source: [place] 8:43 PM SYSTEM REPOSITORY TYPE CODE TESTS RESULT OUT OF RANGE REFERENCE UNITS LAB BGLU 70-100 mg/dL High 253 Glucose,Beds destini Result Comment: Test performed by glucose meter. Results may be 10%-15% lower than serum/plasma values. (CLIA ID [id number]) Performed By: #### BGLU #### [facility] [address] [place] [phone] GLUCOSE,BEDSIDE Collected: 03/22/2018 Status: F Source: [place] 5:20 PM SYSTEM REPOSITORY TYPE CODE TESTS RESULT OUT OF RANGE REFERENCE UNITS LAB BGLU 70-100 mg/dL High 135 Glucose,Beds destini Result Comment: Test performed by glucose meter. Results may be 10%-15% lower than serum/plasma values. (CLIA ID [id number]) Performed By: #### BGLU #### [facility] [address] [place] [address] GLUCOSE,BEDSIDE Collected: 03/22/2018 Status: F Source: [place] 4:05 PM SYSTEM REPOSITORY TYPE CODE TESTS RESULT OUT OF RANGE REFERENCE UNITS LAB BGLU 70-100 mg/dL High 117 Glucose,Beds destini Result Comment: Test performed by glucose meter. Results may be 10%-15% lower than serum/plasma values. (CLIA ID [id number]) Performed By: #### BGLU #### [facility] [place] [address] GLUCOSE,BEDSIDE Collected: 03/22/2018 Status: F Source: [place] 3:35 PM SYSTEM REPOSITORY TYPE CODE TESTS RESULT OUT OF RANGE REFERENCE UNITS LAB BGLU 70-100 mg/dL High 122 Glucose,Beds destini Result Comment: Test performed by glucose meter. Results may be 10%-15% lower than serum/plasma values. (CLIA ID [id number]) Performed By: #### BGLU #### [facility] [address] [place] [address] GLUCOSE,BEDSIDE Collected: 03/22/2018 Status: F Source: [place] 12:34 PM SYSTEM REPOSITORY TYPE CODE TESTS RESULT OUT OF RANGE REFERENCE UNITS LAB BGLU 70-100 mg/dL High 127 Glucose,Beds destini Result Comment: Test performed by glucose meter. Results may be 10%-15% lower than serum/plasma values. (CLIA ID [id number]) Performed By: #### BGLU #### [facility] [place] [address] GLUCOSE,BEDSIDE Collected: 03/22/2018 Status: F Source: [place] 8:44 AM SYSTEM REPOSITORY TYPE CODE TESTS RESULT OUT OF RANGE REFERENCE UNITS LAB BGLU 70-100 mg/dL High 127 Glucose,Beds destini Result Comment: Test performed by glucose meter. Results may be 10%-15% lower than serum/plasma values. (CLIA ID [id number]) Performed By: #### BGLU #### [facility] [address] [place] [address] GLUCOSE,BEDSIDE Collected: 03/22/2018 Status: F Source: [place] 6:32 AM SYSTEM REPOSITORY TYPE CODE TESTS RESULT OUT OF RANGE REFERENCE UNITS LAB BGLU 70-100 mg/dL High 145 Glucose,Beds destini Result Comment: Test performed by glucose meter. Results may be 10%-15% lower than serum/plasma values. (CLIA ID [id number]) Performed By: #### BGLU #### [facility] [address] [place] [phone] HEMOGRAM Collected: 03/22/2018 Status: F Source: [place] 12:04 AM SYSTEM REPOSITORY TYPE CODE TESTS [...] By: #### HEMOG, PT/AP, BMP3, MG3 #### [facility] [address] [place] [phone] PROTIME AND APTT Collected: 03/22/2018 Status: F Source: [place] 12:04 AM SYSTEM REPOSITORY TYPE CODE TESTS [...] By: #### HEMOG, PT/AP, BMP3, MG3 #### [facility] [address] [place] [address] BASIC METABOLIC PANEL Collected: 03/22/2018 Status: F Source: [place] 12:04 AM SYSTEM REPOSITORY TYPE CODE TESTS [...] By: #### HEMOG, PT/AP, BMP3, MG3 #### [facility] [address] [place] [phone] MAGNESIUM Collected: 03/22/2018 Status: F Source: [place] 12:04 AM SYSTEM REPOSITORY TYPE CODE TESTS RESULT OUT OF RANGE REFERENCE UNITS LAB MG3 1.6-2.3 mg/dL Normal Magnesium 1.7 Performed By: #### HEMOG, PT/AP, BMP3, MG3 #### [facility] [address] [place] [address] GLUCOSE,BEDSIDE Collected: 03/21/2018 Status: F Source: [place] 8:36 PM SYSTEM REPOSITORY TYPE CODE TESTS RESULT OUT OF RANGE REFERENCE UNITS LAB BGLU 70-100 mg/dL High 248 Glucose,Beds destini Result Comment: Test performed by glucose meter. Results may be 10%-15% lower than serum/plasma values. (CLIA ID [id number]) Performed By: #### BGLU #### [facility] [address] [place] [address] GLUCOSE,BEDSIDE Collected: 03/21/2018 Status: F Source: [place] 4:53 PM SYSTEM REPOSITORY TYPE CODE TESTS RESULT OUT OF RANGE REFERENCE UNITS LAB BGLU 70-100 mg/dL High 287 Glucose,Beds destini Result Comment: Test performed by glucose meter. Results may be 10%-15% lower than serum/plasma values. (CLIA ID [id number]) Performed By: #### BGLU #### [facility] [address] [place] [address] 12 LEAD ELECTROCARDIOGRAM Observed: 03/21/2018 Status: F Source: [place] 3:44 PM [facility] REPOSITORY [facility] Cardiovascular Services [address] [place] [address] 12 Lead EKG 03/17/18 0745 MR#: [id number] Acct: [id number] Name: NO MUNIZ Rep #: [id number] : 1940 78 From: Shan Henry MD Attending Dr: Claudia Cruz MD Status: DIS IN Ordering Dr: Justus Gutierrez MD Date: 03/17/18 Location: [facility] Sex: F C Admitted: 03/18/18 Test [...] ECG Confirmed by CARL EL, SHAN ([id number]), copy editor DAMIAN MCCRACKEN ([id number]) on 03/21/2018 3:43:47 PM Referred By: LILA Confirmed By:SHAN HENRY MD 03/21/18 1745 Date Shan Henry MD CC: TAIL SAWYERKristopher Chapa; JUSTUS GUTIERREZ MD; Claudia Cruz MD Signed Observed: 03/21/2018 Status: F Source: [place] CULTURE URINE 12:08 PM SYSTEM REPOSITORY Order Comment: Specimen Source Comment:Urine, clean catch 1 Organism Escherichia coli >100,000 CFU/ml 1 Organism Antibiotic Result Intrp Amikacin(TAMKIO) <= 2 S Amoxicillin/Clavulanic Acid(TAMIKO) <= 2 [...] 20 S Performed By: #### C/UR #### [facility] [address] [address] [facility] [address] [place] [phone] GLUCOSE,BEDSIDE Collected: 03/21/2018 Status: F Source: [place] 11:49 AM SYSTEM REPOSITORY TYPE CODE TESTS RESULT OUT OF RANGE REFERENCE UNITS LAB BGLU 70-100 mg/dL High 330 Glucose,Beds destini Result Comment: Test performed by glucose meter. Results may be 10%-15% lower than serum/plasma values. (CLIA ID [id number]) Performed By: #### BGLU #### [facility] [address] [place] [address] GLUCOSE,BEDSIDE Collected: 03/21/2018 Status: F Source: [place] 7:51 AM SYSTEM REPOSITORY TYPE CODE TESTS RESULT OUT OF RANGE REFERENCE UNITS LAB BGLU 70-100 mg/dL High 279 Glucose,Beds destini Result Comment: Test performed by glucose meter. Results may be 10%-15% lower than serum/plasma values. (CLIA ID [id number]) Performed By: #### BGLU #### [facility] [address] [place] [address] HEMOGRAM Collected: 03/21/2018 Status: F Source: [place] 1:42 AM SYSTEM REPOSITORY TYPE CODE TESTS [...] Performed By: #### HEMOG, BMP3, MG3 #### [facility] [address] [place] [address] BASIC METABOLIC PANEL Collected: 03/21/2018 Status: F Source: [place] 1:42 AM SYSTEM REPOSITORY TYPE CODE TESTS [...] Performed By: #### HEMOG, BMP3, MG3 #### [facility] [place] [address] MAGNESIUM Collected: 03/21/2018 Status: F Source: [place] 1:42 AM SYSTEM REPOSITORY TYPE CODE TESTS RESULT OUT OF RANGE REFERENCE UNITS LAB MG3 1.6-2.3 mg/dL Normal Magnesium 1.9 Performed By: #### HEMOG, BMP3, MG3 #### [facility] [address] [place] [address] GLUCOSE,BEDSIDE Collected: 03/20/2018 Status: F Source: [place] 8:20 PM SYSTEM REPOSITORY TYPE CODE TESTS RESULT OUT OF RANGE REFERENCE UNITS LAB BGLU 70-100 mg/dL High 303 Glucose,Beds destini Result Comment: Test performed by glucose meter. Results may be 10%-15% lower than serum/plasma values. (CLIA ID [id number]) Performed By: #### BGLU #### [facility] [address] [place] [phone] CR PELVIS 1 OR 2 Observed: 03/20/2018 Status: F Source: [employer] 7:14 PM SYSTEM REPOSITORY Patient Name: NO MUNIZ Diagnostic Radiology Exam Date/Time 03/20/2018 11:49:51 EDT Exam CR Pelvis 1 or 2 Views Ordering Physician LANDY WILLIS HEATHER Accession Number [id number] CPT4 Codes 87641 () Reason For Exam fall Report PELVIS [...] 2 VIEWS Observed: 03/20/2018 Status: F Source: [place] 7:13 PM SYSTEM REPOSITORY Patient Name: NO MUNIZ Diagnostic Radiology Exam Date/Time 03/20/2018 11:49:27 EDT Exam CR Ankle 2 Views Left Ordering Physician VAUGHN MEDEROS Accession Number [id number] CPT4 Codes 74520 () Reason For Exam swelling Report LEFT [...] CHEST PORTABLE Observed: 03/20/2018 Status: F Source: [place] 7:13 PM SYSTEM REPOSITORY Patient Name: NO MUNIZ Diagnostic Radiology Exam Date/Time 03/20/2018 11:50:07 EDT Exam CR Chest Portable Ordering Physician LANDY WILLIS HEATHER Accession Number [id number] CPT4 Codes 48791 () Reason For Exam fall Report SINGLE [...] BRAIN W/O Observed: 03/20/2018 Status: F Source: [place] 7:10 PM SYSTEM REPOSITORY Patient Name: NO MUNIZ MRI Exam Date/Time 03/20/2018 16:10:44 EDT Exam MRI Brain w/o Contrast Ordering Physician MARITZA WERNER Accession Number [id number] CPT4 Codes 52927 () Reason For Exam LOC Report MRI [...] Physician MD RIVERO PAUL W Accession Number [id number] CPT4 Codes 03665 () Reason For Exam RUE pain, degenerative [...] 6:59 GLUCOSE,BEDSIDE Collected: 03/20/2018 Status: F Source: [place] 5:30 PM SYSTEM REPOSITORY TYPE CODE TESTS RESULT OUT OF RANGE REFERENCE UNITS LAB BGLU 70-100 mg/dL High 329 Glucose,Beds destini Result Comment: Test performed by glucose meter. Results may be 10%-15% lower than serum/plasma values. (CLIA ID [id number]) Performed By: #### BGLU #### [facility] [address] [place] [address] GLUCOSE,BEDSIDE Collected: 03/20/2018 Status: F Source: [place] 12:35 PM SYSTEM REPOSITORY TYPE CODE TESTS RESULT OUT OF RANGE REFERENCE UNITS LAB BGLU 70-100 mg/dL High 221 Glucose,Beds destini Result Comment: Test performed by glucose meter. Results may be 10%-15% lower than serum/plasma values. (CLIA ID [id number]) Performed By: #### BGLU #### [facility] [address] [place] [address] VL VENOUS DUPLEX US Observed: 03/20/2018 Status: F Source: [place] LOWER EXT BILATERAL 12:32 PM SYSTEM REPOSITORY Patient Name: NO MUNIZ Ultrasound Exam Date/Time 03/20/2018 13:24:54 EDT Exam VL Venous Duplex US Lower Ext Bilateral Ordering Physician VAUGHN MEDEROS Accession Number [id number] CPT4 Codes 31110 () Reason For Exam swelling LLE Report [facility] --- Lower Extremity Venous Duplex Report Patient Name: DO CristyB: 1940 Study Date: 03/20/2018 No (78yrs) Age: 78 Account: [id number] Gender: F Loc: [facility] BP: Ordering: Vaughn Mederos Technologist: Ordering Physician: Vaughn Mederos Soccer Coach: Harjit Askew Rodolfo, [facility] Interpreting Physician: Stephen Cotto MD --- Location: [facility] --- INDICATIONS: Swelling of limb. [...] performed. The images were obtained using a [employer] E9 vascular ultrasound machine. The study was [...] --+ Electronically signed by: Stephen Cotto MD [id number] Final Dictated: 03/20/2018 1:36 pm Dictating Physician: STEPHEN COTTO Signed Date and Time: 03/20/2018 1:35 pm Signed by: STEPHEN COTTO [facility] Collected: 03/20/2018 Status: F Source: [facility] 7:45 AM SYSTEM REPOSITORY TYPE CODE TESTS RESULT OUT OF RANGE REFERENCE UNITS LAB BGLU 70-100 mg/dL High 163 Glucose,Beds destini Result Comment: Test performed by glucose meter. Results may be 10%-15% lower than serum/plasma values. (CLIA ID [id number]) Performed By: #### BGLU #### [facility] [address] [place] [address] BASIC METABOLIC PANEL Collected: 03/20/2018 Status: F Source: [place] 1:00 AM SYSTEM REPOSITORY TYPE CODE TESTS [...] By: #### BMP3, PHOS3, HEMOG, HA1C2 #### [facility] [address] [place] [address] PHOSPHORUS Collected: 03/20/2018 Status: F Source: [place] 1:00 AM SYSTEM REPOSITORY TYPE CODE TESTS RESULT OUT OF RANGE REFERENCE UNITS LAB PHOS3 2.5-4.5 mg/dL Normal Phosphorus 4.2 Performed By: #### BMP3, PHOS3, HEMOG, HA1C2 #### [facility] [address] [place] [phone] HEMOGRAM Collected: 03/20/2018 Status: F Source: [place] 1:00 AM SYSTEM REPOSITORY TYPE CODE TESTS [...] By: #### BMP3, PHOS3, HEMOG, HA1C2 #### [facility] [address] [place] [phone] HEMOGLOBIN A1C Collected: 03/20/2018 Status: F Source: [place] 1:00 AM SYSTEM REPOSITORY TYPE CODE TESTS RESULT OUT OF REFERENCE UNITS RANGE LAB A1C2 4.0-5.7 % High Hemoglobin A1C 9.9 Result Comment: --HgbA1C levels may not be accurate in patients who have renal disease, received recent blood transfusions, are anemic, or who have dyshemoglobinemia. LAB EAG2 mg/dL Estimated Avg Glucose 237 Performed By: #### BMP3, PHOS3, HEMOG, HA1C2 #### [facility] [address] [address] MAGNESIUM Collected: 03/20/2018 Status: F Source: [place] 1:00 AM SYSTEM REPOSITORY TYPE CODE TESTS RESULT OUT OF RANGE REFERENCE UNITS LAB MG3 1.6-2.3 mg/dL Normal Magnesium 1.8 Result Comment: Moderately hemolysed, interpret with caution. Performed By: #### MG3 #### [facility] [address] [address] VIT D 25-OH, TOTAL Collected: 03/20/2018 Status: F Source: [place] 1:00 AM SYSTEM REPOSITORY TYPE CODE TESTS [...] equal to 30 ng/mL Test performed by [employer] Comp[employer] Immunoassay, measuring Total Vitamin D, not individual fractions. Performed By: #### VD25H #### [facility] [address] [facility] [place] [address] GLUCOSE,BEDSIDE Collected: 03/19/2018 Status: F Source: [place] 10:34 PM SYSTEM REPOSITORY TYPE CODE TESTS RESULT OUT OF RANGE REFERENCE UNITS LAB BGLU 70-100 mg/dL High 189 Glucose,Beds destini Result Comment: Test performed by glucose meter. Results may be 10%-15% lower than serum/plasma values. (CLIA ID [id number]) Performed By: #### BGLU #### [facility] [address] [place] [address] [address] SPINE CERVICAL W/O Observed: 03/19/2018 Status: F Source: [place] CONTRAST 7:01 PM SYSTEM REPOSITORY Patient Name: NO MUNIZ CT Exam Date/Time 03/19/2018 18:37:[address] Spine Cervical w/o Contrast Ordering Physician MD PANCHO, CHELSEA Cisneros Accession Number [id number] CPT4 Codes 68103 () Reason For Exam fall, RUE weakness [...] 7:01 HEMOGRAM Collected: 03/19/2018 Status: F Source: [place] 6:12 PM SYSTEM REPOSITORY TYPE CODE TESTS [...] HEMOG, PT/AP, BMP3, LFT3, TROPN, TSH4 #### [facility] [address] [place] [phone] PROTIME AND APTT Collected: 03/19/2018 Status: F Source: [place] 6:12 PM SYSTEM REPOSITORY TYPE CODE TESTS [...] HEMOG, PT/AP, BMP3, LFT3, TROPN, TSH4 #### [facility] [address] [place] [phone] BASIC METABOLIC PANEL Collected: 03/19/2018 Status: F Source: [place] 6:12 PM SYSTEM REPOSITORY TYPE CODE TESTS [...] HEMOG, PT/AP, BMP3, LFT3, TROPN, TSH4 #### [facility] [address] [address] HEPATIC FUNCTION Collected: 03/19/2018 Status: F Source: [place] 6:12 PM SYSTEM REPOSITORY TYPE CODE TESTS [...] HEMOG, PT/AP, BMP3, LFT3, TROPN, TSH4 #### [facility] [address] [place] [phone] TROPONIN I Collected: 03/19/2018 Status: F Source: [place] 6:12 PM SYSTEM REPOSITORY TYPE CODE TESTS RESULT OUT OF RANGE REFERENCE UNITS LAB TROP4 0.000-0.034 ng/mL Normal Troponin I < 0.012 Result Comment: 0.046 - 0.400 = Indeterminate > 0.400 = Consider Myocardial Injury Performed By: #### HEMOG, PT/AP, BMP3, LFT3, TROPN, TSH4 #### [facility] [address] [place] [address] THYROID STIM. Collected: 03/19/2018 Status: F Source: [place] H[place] 6:12 PM SYSTEM REPOSITORY TYPE CODE TESTS RESULT OUT OF RANGE REFERENCE UNITS LAB TSH4 0.465-4.680 uU/mL Normal Thyroid Stim. 3.784 Hormone Performed By: #### HEMOG, PT/AP, BMP3, LFT3, TROPN, TSH4 #### [facility] [address] [place] [address] DISCHARGE SUMMARY Observed: 03/19/2018 Status: F Source: [place] 2:58 PM [facility] REPOSITORY [facility] Medical Records Department [address] [place] [address] Discharge Summary 03/19/18 1355 MR#: [id number] Acct: [id number] Name: NO MUNIZ Rep #: [id number] : 1940 78 From: Shavon DOWNS PCP: HIMANSHU Gill Status: ADM IN Location: [facility] [id number] <Shavon Bradley - Last Filed: 03/19/18 14:05> [...] Jens Thurman MD at 10:22 EDT Tel [phone], Service support , Chest X-Ray 03/17/18 09:01 IMPRESSION: Findings in keeping with vascular congestion and mild degree of CHF. Electronically Signed: Jens Thurman MD at 10:19 EDT Tel [phone], Service support , Brain MRI 03/17/18 12:20 [...] which may be contributing to her symptoms. [facility] contacted who is willing to accept patient for neurosurgery evaluation. Patient and family agreeable to this. Patient is stable of time of transfer to [facility]. General: Alert, Oriented x3, Cooperative HEENT: [...] is stable at time of transfer to [facility] for further neurosurgery evaluation regarding severe [...] Q4H PRN PRN 03/17/18 Primary Care Physician: Ltaia Chapa NP-C [Primary Care Provider] - Disposition: [...] to tertiary hospital for urgent neurosurgery evaluation.. [facility] accepted patient was transferred. Patient seen [...] CT reading as above. Patient transferred to [facility] as per Shavon DOWNS's note. [] This note was generated with [employer]GN ([employer])ation software. It may contain incorrect words, spelling, and punctuation that were not noted in checking the note before signing. Code Visit Inpatient E AND M: [id number] Disch Hosp 03/19/18 1405 <Electronically signed by Shavon DOWNS> Date Shavon DOWNS 03/19/18 7432<Electronically signed by Claudia Cruz MD> Cosigner Signature (if applicable): Date Claudia Cruz MD CC: TAIL SAWYER-C Shavon Bradley; TAIL SAWYER-C Latia Chapa; Claudia Cruz MD Signed BEDSIDE GLUCOSE Collected: 03/19/2018 Status: F Source: [place] 11:20 AM [facility] REPOSITORY TYPE CODE TESTS RESULT OUT OF REFERENCE UNITS RANGE LAB L501.080 70-110 mg/dL High BEDSIDE GLU 170 Result Comment: MANAGEMENT OF PATIENT CARE PER NURSING PROTOCOL Performed By: #### L501.080 #### [facility] Point of Care [address] [place] [address] SPINE CERVICAL Observed: 03/19/2018 Status: F Source: [place] WITHOUT CONTRAS 9:28 AM [facility] REPOSITORY [facility] Imaging Services [address] [place] [address] Spine Cervical without Contras MR#: [id number] Acct: [id number] Name: ON MUNIZ Rep #: [id number] : 1940 F 78 From: Alfonso Pozo MD PCP: HIMANSHU Gill Status: ADM IN Study: Spine Cervical without Contras Date of Exam: 03/19/18 Exam# [id number] Ordering Dr: Shavon Bradley STUDY: CT CERVICAL [...] support , CC: HIMANSHU Bradley; HIMANSHU Chapa Solution Design Engineer: Signed BEDSIDE GLUCOSE Collected: 03/19/2018 Status: F Source: [place] 7:30 AM [facility] REPOSITORY TYPE CODE TESTS RESULT OUT OF REFERENCE UNITS RANGE LAB L501.080 70-110 mg/dL High BEDSIDE GLU 115 Result Comment: MANAGEMENT OF PATIENT CARE PER NURSING PROTOCOL Performed By: #### L501.080 #### [facility] Point of Care [address] [place], [place] [address] CBC W/DIFF, AUTOMATED Collected: 03/19/2018 Status: F Source: [place] 6:25 AM [facility] REPOSITORY TYPE CODE TESTS RESULT OUT OF [...] Lymph 3.00 Performed By: #### L100.0100 #### [facility] [address] [place], [place], [address] BASIC METABOLIC Collected: 03/19/2018 Status: F Source: [place] PROFILE (BMP) 6:25 AM [facility] REPOSITORY TYPE CODE TESTS RESULT OUT OF [...] GAP 9 Performed By: #### L500.2500 #### [facility] [address] [place], [address] BEDSIDE GLUCOSE Collected: 03/18/2018 Status: F Source: [place] 9:33 PM [facility] REPOSITORY TYPE CODE TESTS RESULT OUT OF REFERENCE UNITS RANGE LAB L501.080 70-110 mg/dL High BEDSIDE GLU 171 Result Comment: MANAGEMENT OF PATIENT CARE PER NURSING PROTOCOL Performed By: #### L501.080 #### [facility] Point of Care [address] [place] [address] BEDSIDE GLUCOSE Collected: 03/18/2018 Status: F Source: [place] 4:48 PM [facility] REPOSITORY TYPE CODE TESTS RESULT OUT OF REFERENCE UNITS RANGE LAB L501.080 70-110 mg/dL High BEDSIDE GLU 172 Result Comment: MANAGEMENT OF PATIENT CARE PER NURSING PROTOCOL Performed By: #### L501.080 #### [facility] Point of Care [address] [place] [address] BEDSIDE GLUCOSE Collected: 03/18/2018 Status: F Source: [place] 11:26 AM [facility] REPOSITORY TYPE CODE TESTS RESULT OUT OF REFERENCE UNITS RANGE LAB L501.080 70-110 mg/dL High BEDSIDE GLU 199 Result Comment: MANAGEMENT OF PATIENT CARE PER NURSING PROTOCOL Performed By: #### L501.080 #### [facility] Point of Care [address] [place] [address] BEDSIDE GLUCOSE Collected: 03/18/2018 Status: F Source: [place] 6:52 AM [facility] REPOSITORY TYPE CODE TESTS RESULT OUT OF REFERENCE UNITS RANGE LAB L501.080 70-110 mg/dL High BEDSIDE GLU 146 Result Comment: MANAGEMENT OF PATIENT CARE PER NURSING PROTOCOL Performed By: #### L501.080 #### [facility] Point of [place] [address] CBC W/DIFF, AUTOMATED Collected: 03/18/2018 Status: F Source: [place] 5:50 AM [facility] REPOSITORY TYPE CODE TESTS RESULT OUT OF [...] Lymph 2.41 Performed By: #### L100.0100 #### [facility] [address] [place], [place], [address] BASIC METABOLIC Collected: 03/18/2018 Status: F Source: [place] PROFILE (BMP) 5:50 AM [facility] REPOSITORY TYPE CODE TESTS RESULT OUT OF [...] GAP 7 Performed By: #### L500.2500 #### [facility] [address] [place], [place], [address] BEDSIDE GLUCOSE Collected: 03/17/2018 Status: F Source: [place] 9:34 PM [facility] REPOSITORY TYPE CODE TESTS RESULT OUT OF REFERENCE UNITS RANGE LAB L501.080 70-110 mg/dL High BEDSIDE GLU 152 Result Comment: MANAGEMENT OF PATIENT CARE PER NURSING PROTOCOL Performed By: #### L501.080 #### [facility] Point of Care [address] [place] [address] EMERGENCY DEPARTMENT Observed: 03/17/2018 Status: F Source: [place] SUMMARY 5:24 PM [facility] REPOSITORY [facility] Medical Records Department [address] [place] [address] Emergency Department Summary 03/17/18 0903 MR#: [id number] Acct: [id number] Name: NO MUNIZ Rep #: [id number] : 1940 78 From: Justus Gutierrez MD [...] 07:43) Vomiting Primary Care Physician: Eduard,Latia Andrzej, TAIL SAWYER-C [Primary Care Provider] - Lives: Alone Smoking [...] Jens Thurman MD at 10:22 EDT Tel [phone], Service support , Chest X-Ray 03/17/18 09:01 IMPRESSION: Findings in keeping with vascular congestion and mild degree of CHF. Electronically Signed: Jens Thurman MD at 10:19 EDT Tel [phone], Service support , 03/17/18 09:01 Brain/Head without [...] for ED Patient: Disposition: Acute Care Hospital [facility] Chief Complaint: Upper Extremity Injury Diagnosis: Vertigo, peripheral, Carpal tunnel syndrome on right, Chest pain, unspecified What to do if you have Problems For any increased pain, shortness of breath, bleeding, nausea or vomiting, chest pain, or any unexpected problems, contact your Primary Care Provider. Call [facility] ([phone]) or report to the closest Emergency Room. Call 911 if necessary. 03/17/18 2417 <Electronically signed by Justus Gutierrez MD> Date Justus Osorio Signature (If Indicated): Date CC: TAIL SAWYER-C Latia Chapa TROPONIN-I Collected: 03/17/2018 Status: F Source: [place] 5:23 PM [facility] REPOSITORY Order Comment: 'TROP' Serial specimen #1, #2 or #3: 2 TYPE CODE TESTS RESULT OUT OF RANGE REFERENCE UNITS LAB L501.4010 <0.045 ng/mL Normal < 0.015 TROPONIN-I Result Comment: TROPONIN-I EXPECTED VALUES <0.045 Negative 0.045 - 0.590 Consistent with Cardiac Damage > OR = 0.600 Critical Value Not every elevated troponin is indicative of NM. These values should be used with clinical judgement in examining the patient's clinical picture for diagnosis. To establish a diagnosis of NM versus myocardial injury, there must be a demonstrated rise and/or fall in the troponin values, in addition to ischemic symptoms, EKG changes, new regional wall motion abnormality, and/or angiographical evidence. PLEASE NOTE: REFERENCE RANGES EDITED 18 Performed By: #### L501.4010 #### [facility] [address] [facility] [place], [address] HISTORY AND PHYSICAL Observed: 03/17/2018 Status: F Source: [place] EXAM 4:43 PM [facility] REPOSITORY [facility] Medical Records Department [address] [place] [address] History and Physical 03/17/18 1224 MR#: [id number] Acct: [id number] Name: NO MUNIZ John Rep #: [id number] : 1940 78 From: Claudia Cruz MD PCP: Latia Chapa TAIL SAWYERKristopher Status: ADM DEISY Y Location: [place] [address] Problem List (1) Vertigo, peripheral Status: Acute [...] surgery Psychiatric History: No pertinent psych hx BREAKER TENDER History: No pertinent BREAKER TENDER history Lives: Alone, With Family Smoking Status: [...] WNL. Gait not assessed. Unable to do Ainsworth Hallpike testing as patient got uncomfortable even [...] Jens Thurman MD at 10:22 EDT Tel [phone], Service support , Chest X-Ray 03/17/18 09:01 IMPRESSION: Findings in keeping with vascular congestion and mild degree of CHF. Electronically Signed: Jens Thurman MD at 10:19 EDT Tel [phone], Service support , 03/17/18 09:01 Brain/Head without [...] 8. Code Visit OBSV E AND M: 10006 Initial observation care L2 03/17/18 1643 <Electronically signed by Claudia Cruz MD> Date Claudia Cruz MD Cosigner Signature: Date (if applicable) CC: TAIL SAWYER-C Latia Chapa; Claudia Cruz MD Signed BEDSIDE GLUCOSE Collected: 03/17/2018 Status: F Source: [place] 4:21 PM [facility] REPOSITORY TYPE CODE TESTS RESULT OUT OF REFERENCE UNITS RANGE LAB L501.080 70-110 mg/dL High BEDSIDE GLU 126 Result Comment: MANAGEMENT OF PATIENT CARE PER NURSING PROTOCOL Performed By: #### L501.080 #### [facility] Point of Care [address] [place] [address] WRIST 2 VIEWS Observed: 03/17/2018 Status: F Source: [place] 3:36 PM [facility] REPOSITORY [facility] Imaging Services [address] [place] [address] Wrist 2 Views MR#: [id number] Acct: [id number] Name: NO MUNIZ Rep #: [id number] : 1940 F 78 From: Kp Adame MD PCP: IHMANSHU Gill Status: ADM DEISY Study: Wrist 2 Views Date of Exam: 03/17/18 Exam# [id number] Ordering Dr: Claudia Cruz MD STUDY: X-RAY [...] 19:40 EDT , Service support , CC: TAIL SAWYER-C Latia Chapa; Claudia Cruz MD Solution Design Engineer: Signed SHOULDER MIN 2 VIEWS Observed: 03/17/2018 Status: F Source: [place] 3:36 PM [facility] REPOSITORY [facility] Imaging Services [address] [place] [address] Shoulder min 2 Views MR#: [id number] Acct: [id number] Name: NO MUNIZ Rep #: [id number] : 1940 F 78 From: Kp Adame MD PCP: Latia Chapa NP-C Status: ADM DEISY Study: Shoulder min 2 Views Date of Exam: 03/17/18 Exam# [id number] Ordering Dr: Claudia Cruz MD STUDY: X-RAY [...] 19:40 EDT , Service support , CC: TAIL SAWYER-C Latia Chapa; Claudia Cruz MD Solution Design Engineer: Signed ELBOW 2 VIEWS Observed: 03/17/2018 Status: F Source: [place] 3:36 PM [facility] REPOSITORY [facility] Imaging Services [address] [place] [address] Elbow 2 Views MR#: [id number] Acct: [id number] Name: NO MUNIZ Rep #: [id number] : 1940 F 78 From: Kp Adame MD PCP: HIMANSHU Gill Status: ADM DEISY Study: Elbow 2 Views Date of Exam: 03/17/18 Exam# [id number] Ordering Dr: Claudia Cruz MD STUDY: X-RAY [...] 19:41 EDT , Service support , CC: TAIL SAWYER-C Latia Chapa; Claudia Cruz MD Solution Design Engineer: Signed BEDSIDE GLUCOSE Collected: 03/17/2018 Status: F Source: [place] 1:04 PM [facility] REPOSITORY TYPE CODE TESTS RESULT OUT OF REFERENCE UNITS RANGE LAB L501.080 70-110 mg/dL High BEDSIDE GLU 159 Result Comment: MANAGEMENT OF PATIENT CARE PER NURSING PROTOCOL Performed By: #### L501.080 #### [facility] Point of Care [address] [facility] [place] [address] BRAIN WITHOUT Observed: 03/17/2018 Status: F Source: [place] CONTRAST 12:21 PM [facility] REPOSITORY [facility] Imaging Services [address] [place] [address] Brain without Contrast MR#: [id number] Acct: [id number] Name: NO MUNIZ Rep #: [id number] : 1940 F 78 From: Kp Adame MD PCP: HIMANSHU Gill Status: ADM DEISY Study: Brain without Contrast Date of Exam: 03/17/18 Exam# [id number] Ordering Dr: Claudia Cruz MD STUDY: MRI [...] , CC: HIMANSHU Chapa; Claudia Cruz MD Solution Design Engineer: Signed URINALYSIS, COMPLETE Collected: 03/17/2018 Status: F Source: [place] 10:05 AM [facility] REPOSITORY Order Comment: How was Urine Obtained? CLASSROOM ASSISTANT TO SPECIFY TYPE CODE TESTS RESULT OUT [...] URINE SEEN Performed By: #### L400.0001 #### [facility] [address] [place], [address] BASIC METABOLIC Collected: 03/17/2018 Status: F Source: [place] PROFILE (BMP) 9:10 AM [facility] REPOSITORY TYPE CODE TESTS RESULT OUT OF [...] 8 Performed By: #### L500.2500, L501.4010 #### [facility] [address] [place], [address] TROPONIN-I Collected: 03/17/2018 Status: F Source: [place] 9:10 AM [facility] REPOSITORY TYPE CODE TESTS RESULT OUT OF RANGE REFERENCE UNITS LAB L501.4010 <0.045 ng/mL Normal < 0.015 TROPONIN-I Result Comment: TROPONIN-I EXPECTED VALUES <0.045 Negative 0.045 - 0.590 Consistent with Cardiac Damage > OR = 0.600 Critical Value Not every elevated troponin is indicative of NM. These values should be used with clinical judgement in examining the patient's clinical picture for diagnosis. To establish a diagnosis of NM versus myocardial injury, there must be a demonstrated rise and/or fall in the troponin values, in addition to ischemic symptoms, EKG changes, new regional wall motion abnormality, and/or angiographical evidence. PLEASE NOTE: REFERENCE RANGES EDITED 18 Performed By: #### L500.2500, L501.4010 #### [facility] [address] [facility] [place], [address] CBC W/DIFF, AUTOMATED Collected: 03/17/2018 Status: F Source: [place] 9:10 AM [facility] REPOSITORY TYPE CODE TESTS RESULT OUT OF [...] Lymph 1.21 Performed By: #### L100.0100 #### [facility] [address] [place], [address] BNP,B-TYPE NATRIURETIC Collected: 03/17/2018 Status: F Source: [place] PEPTIDE 9:10 AM [facility] REPOSITORY Order Comment: ADD ON TO BLOOD IN LAB PLEASE TYPE CODE TESTS RESULT OUT OF RANGE REFERENCE UNITS LAB L503.6620 0-100 pg/mL High B-TYPE 149.0 FABIÁN PEP Performed By: #### L503.6620 #### [facility] [address] [place], [address] CHEST 1 VIEW Observed: 03/17/2018 Status: F Source: [place] (PORTABLE) 9:03 AM [facility] REPOSITORY [facility] Imaging Services [address] [place] [address] Chest 1 View (Portable) MR#: [id number] Acct: [id number] Name: NO MUNIZ John Rep #: [id number] : 1940 F 78 From: Jens Thurman MD PCP: Latia Chapa TAIL SAWYER-C Status: REG ER Study: Chest 1 View (Portable) Date of Exam: 03/17/18 Exam# [id number] Ordering Dr: Justus Gutierrez MD STUDY: X-RAY [...] Jens Thurman MD at 10:19 EDT Tel [phone], Service support , CC: HIMANSHU Chapa; JUSTUS GUTIERREZ MD Solution Design Engineer: Signed BRAIN/HEAD WITHOUT Observed: 03/17/2018 Status: F Source: [place] CONTRAST 9:03 AM [facility] REPOSITORY [facility] Imaging Services [address] [place] [address] Brain/Head without Contrast MR#: [id number] Acct: [id number] Name: NO MUNIZ Rep #: [id number] : 1940 F 78 From: Jens Thurman MD PCP: HIMANSHU Gill Status: REG ER Study: Brain/Head without Contrast Date of Exam: 03/17/18 Exam# [id number] Ordering Dr: Justus Gutierrez MD STUDY: CT [...] Jens Thurman MD at 10:22 EDT Tel [phone], Service support , CC: HIMANSHU Chapa; JUSTUS GUTIERREZ MD Solution Design Engineer: Signed TSH Collected: 02/24/2018 Status: F Source: [place] 9:20 AM [facility] REPOSITORY TYPE CODE TESTS RESULT OUT OF RANGE REFERENCE UNITS LAB TSH(LOINC) 0.27-4.20 mcIU/mL TSH 1.70 Performed By: #### TSH #### [address] [address] RENAL Observed: 02/03/2018 Status: F Source: [place] 5:00 PM [facility] REPOSITORY ORIGINAL Complete retroperitoneal ultrasound for the [...] URINALYSIS, COMPLETE Collected: 02/01/2018 Status: F Source: [place] 2:03 PM [facility] REPOSITORY Order Comment: How was Urine Obtained? [...] URINE SEEN Performed By: #### L400.0001 #### [facility] [address] [place], [address] RENAL PROFILE Collected: 02/01/2018 Status: F Source: [place] 2:03 PM [facility] REPOSITORY TYPE CODE TESTS RESULT OUT OF [...] CO2 24.0 Performed By: #### L500.3600 #### [facility] [address] [facility] [place], [place], [address] PROTEIN+CREATININE Collected: Status: F Source: [place] RATIO,URINE 02/01/2018 2:03 PM [facility] REPOSITORY TYPE CODE TESTS RESULT OUT OF RANGE REFERENCE UNITS LAB L501.1200 NO RANGE EST. mg/dL Normal UR CREAT 108.00 LAB L501.1930 <11.9 mg/dL High 88.9 PROTEIN,UR.R AN. LAB L501.1940 0-200 mg/g CRE High PROT:CRE 823 RATIO Performed By: #### L501.0900 #### [facility] [address] [facility]. [place], [place], [address] ANTINUCLEAR ANTIBODY, Collected: 02/01/2018 Status: F Source: [place] IFA 2:03 [facility] REPOSITORY TYPE CODE TESTS RESULT OUT OF RANGE REFERENCE UNITS LAB L3100.8000 . Normal ANTHONY Negative test Result Comment: Negative <1:80 Borderline 1:80 Positive >1:80 Speckled cytoplasmic fluorescence is present. The antibodies noted in this pattern may be associated with, but not restricted to, primary biliary cirrhosis (PBC), polymyositis and dermatomyositis (PM/DM), and/or systemic lupus erythematosus (SLE). Performed at: - [facility] [id number] Caustic Operator: Harjit Tim PhD, Phone: [phone] Performed By: #### L3100.7950 #### [facility] (refer to report for specific site) refer to report for address and phone number CBC Collected: 11/16/2017 Status: F Source: [facility] 10:40 AM [facility] REPOSITORY TYPE CODE TESTS RESULT OUT OF [...] ANEU, LIPID, CMP, GFR, FT4, TSH #### [facility] [address] [place] [address] #### VIDH #### [address] [address] .AUTO DIFF Collected: 11/16/2017 Status: F Source: [facility] 10:40 AM [facility] REPOSITORY TYPE CODE TESTS RESULT OUT OF [...] ANEU, LIPID, CMP, GFR, FT4, TSH #### [address] [address] #### VIDH #### [facility] [address] [place] [address] .NEUABS Collected: 11/16/2017 Status: F Source: [facility] 10:40 AM [facility] REPOSITORY TYPE CODE TESTS RESULT OUT OF REFERENCE UNITS RANGE LAB ANEU(LOINC) 2.85-6.16 10 3/mcL Neutrophil, 4.40 Absolute Performed By: #### CBC, ADIFF, ANEU, LIPID, CMP, GFR, FT4, TSH #### [address] [address] #### VIDH #### [facility] [address] [place] [address] LIPID Collected: 11/16/2017 Status: F Source: [facility] 10:40 AM [facility] REPOSITORY TYPE CODE TESTS RESULT OUT OF [...] ANEU, LIPID, CMP, GFR, FT4, TSH #### [facility] [address] [place], [place] [address] #### VIDH #### [address] [address] CMP Collected: 11/16/2017 Status: F Source: [facility] 10:40 AM [facility] REPOSIT[facility] TYPE CODE TESTS [...] GFR, FT4, TSH #### [facility] [address] [place], [place] [address] #### VIDH #### [address] [address] .GFR Collected: 11/16/2017 Status: F Source: [facility] 10:40 AM [facility] REPOSITORY TYPE CODE TESTS RESULT OUT OF REFERENCE UNITS RANGE LAB GFRAA(LOINC ml/min/1.73 ) sqm GFR 49 [place] Result Comment: GFR Population mean for , [...] ANEU, LIPID, CMP, GFR, FT4, TSH #### [address] [address] #### VIDH #### [place] [address] FT4 Collected: 11/16/2017 Status: F Source: [facility] 10:40 AM [facility] REPOSITORY TYPE CODE TESTS RESULT OUT OF RANGE REFERENCE UNITS LAB FT4(LOINC) 0.6-1.7 ng/mL Free T4 1.0 Performed By: #### CBC, ADIFF, ANEU, LIPID, CMP, GFR, FT4, TSH #### [address] [address] #### VIDH #### [place] [address] TSH Collected: 11/16/2017 Status: F Source: [facility] 10:40 AM [facility] REPOSITORY TYPE CODE TESTS RESULT OUT OF RANGE REFERENCE UNITS LAB TSH(LOINC) 0.27-4.20 mcIU/mL High TSH 5.14 Result Comment: Above normal(expected)range Performed By: #### CBC, ADIFF, ANEU, LIPID, CMP, GFR, FT4, TSH #### [address] [address] #### VIDH #### [place] [address] VIDH Collected: 11/16/2017 Status: F Source: [facility] 10:40 AM [facility] REPOSITORY TYPE CODE TESTS RESULT OUT OF RANGE REFERENCE UNITS LAB VIDH(LOINC) ng/mL Vit. D 56 25-Hydroxy Result Comment: Interpretive Values Based on Total 25(OH)D: Severe Deficiency <20 ng/mL Mild to Moderate Deficiency 20-30 ng/mL Optimum Levels 30-100 ng/mL Toxicity Possible >100 ng/mL Performed By: #### CBC, ADIFF, ANEU, LIPID, CMP, GFR, FT4, TSH #### [address] [address] #### VIDH #### [place] [address] ALLERGIES ALLERGIES DATE TYPE / CODE NAME / CODE REACTION SEVERITY SOURCE 07/07/2018 Drug Penicillins/F Anaphylaxis Unknown [facility] [id number](RXN [facility] 279382(SNOM ORM) Repository ED CT) 07/07/2018 Drug Sulfa Vomiting Unknown [facility] All[facility]/416 (Sulfonamide Hospital 328278(SNOM Antibiotics)/ Repository ED CT) [id number](RX NORM) 07/07/2018 Drug acetaminophen Vomiting Unknown [facility] Allergy/416 /[id number](R Hospital 462975(SNOM XNORM) Repository ED CT) 07/07/2018 Drug orange Hives Unknown [facility]/416 juice/[id number] Hospital 434740(SNOM 513(RXNORM) Repository ED CT) 07/07/2018 Drug strawberry/F0 Hives Unknown [facility]/416 70244353(RXNO Hospital 724269(SNOM RM) Repository ED CT) ENCOUNTERS ENCOUNTERS ADMIT/DISCHARGE ACCOUNT NUMBER ADMITTING ENCOUNTER LOCATION SOURCE CLASS 10/04/2018 [id number] [facility] ding:OLS.ACH Repository 09/27/2018 [id number] [facility] ding:OLS.ACH Repository 09/20/2018 [id number] [facility] ding:OLS.ACH Repository 09/14/2018 [id number] [facility] ding:OLS.ACH Repository 09/05/2018 [id number] [facility] ding:OLS.ACH Repository 08/30/2018 [id number] [facility] ding:OLS.ACH Repository 08/23/2018 [id number] [facility] ding:OLS.ACH Repository 08/18/2018/08/18/20 [id number] Ambulatory BBuilding:RA Owen [address] [place] [address] Repository 08/16/2018 [id number] [facility] ding:OLS.ACH Repository 08/09/2018 [id number] [facility] ding:OLS.ACH Repository 08/02/2018 [id number] [facility] ding:OLS.ACH Repository 07/26/2018 [id number] Ambulatory [facility] ding:OLS.ACH Repository 07/19/2018 [id number] Ambulatory [facility] ding:OLS.ACH Repository 07/12/2018 [id number] Ambulatory [facility] ding:OLS.ACH Repository 07/07/2018/07/11/20 [id number] Claudia Cruz Ambulatory [facility] ding:PCURoom Repository : JDW624Eow: 1 07/07/2018 [id number] KorEdna ruiza Ambulatory BMSBuilding: [facility] Repository 07/07/2018 [id number] Claudia Cruz Ambulatory BMSBuilding: [facility] Repository 07/07/2018 [id number] KorEdna ruiza Ambulatory BMSBuilding: [facility] Repository 07/07/2018 [id number] Enda Cruza Ambulatory BMSBuilding: [facility] Repository 07/07/2018 [id number] KordEna ruiza Ambulatory BMSBuilding: [facility] Repository 07/07/2018 [id number] Ambulatory BMSBuilding: [facility] Repository 05/26/2018/05/30/20 [id number] Ambulatory BBuilding:DR Owen [address] [facility] Repository 05/24/2018/05/24/20 [id number] Emergency [address] ding:ED Repository 05/19/2018 [id number] Ambulatory Buildin[place] [address] [place] Rep[place] 05/19/2018 [id number] Ambulatory [address] [place] [address] [place] Repository 04/14/2018/04/19/20 [id number] Ambulatory BMSBuilding: [address] Repository 04/13/2018/04/19/20 [id number] Karthik, Ambulatory [address] ding:W[place]6Idtn Repository : [id number]: 1 04/13/2018 [id number] Oleghe, Ambulatory BMSBuilding: [facility] Repository 04/13/2018 [id number] Oleghe, Ambulatory BMSBuilding: [facility] [place] [facility] Repository 04/13/2018 [id number] Oleghe, Ambulatory BMSBuilding: [facility] Repository 04/13/2018 [id number] Oleghe, Ambulatory BMSBuilding: [facility] [place] [facility] Repository 04/13/2018 [id number] Oleghe, Ambulatory BMSBuilding: [facility] [place] [facility] Repository 04/13/2018 [id number] Oleghe, Ambulatory BMSBuilding: [facility] [place] BMS.[facility] Repository 04/13/2018 [id number] Oleghe, Ambulatory BMSBuilding: [facility] [place] BMS.[facility] Repository 03/19/2018 [id number] Emergency [facility] [place] [address] ERRoom: System [id number]: Repository [id number] 03/18/2018/03/19/20 [id number] Claudia Cruz Inpatient [facility] ding:PCURoom Repository : [id number]: 1 03/18/2018 [id number] Claudia Cruz Ambulatory BMSBuilding: [facility] Repository 03/18/2018/03/19/20 [id number] Ambulatory BMSBuilding: [facility] [facility] Repository 03/18/2018/03/19/20 [id number] Ambulatory BMSBuilding: [place] [address] [place] [address] Repository 02/24/2018/02/29/20 [id number] Ambulatory [address] ding:DROP [facility] Repository 02/03/2018/02/04/20 [id number] Ambulatory [address] ding:[facility] Repository 02/01/2018 [id number] Ambulatory [facility] ding:POLAB3 Repository 11/16/2017/11/21/19 [id number] Ambulatory [address] ding:[facility] Repository PAYERS PAYERS ENCOUNTER GUARANTOR PAYER SUBSCRIBER SOURCE 10/04/2018 NO J Primary NOT GIVENUNK [place] [id number] Insurance:SELF PAY [facility] RDAPOSTOLIC Number: Effective Repository ANABAPTIST Date:2018-10-04 [place], [place] [address]Rls: () 09/27/2018 NO J Primary NOT GIVENUNK [place] [id number] Insurance:SELF PAY [facility] RDAPOSTOLIC Number: Effective Repository ANABAPTIST Date:2018-09-27 [place], [place] [address]Ucd: () 09/20/2018 NO J Primary NO J [place] [id number] Insurance:MYCARE CRSC HOFSTETTERDOB: Community ERNESTINA *IN [facility] [id number] Hospital RDAPOSTOLIC Number: Repository ANABAPTIST [id number] [place] Date:9824-66-74JSEW 115[address]Sis: (975) CLAIMS [phone] () [place], [place] [address]XE: 09/20/2018 Secondary NOT GIVENUNK [place] Insurance:SELF PAY [facility] Number: Effective Repository Date:2018-09-20 09/14/2018 NO J Primary NO J [place] [id number] Insurance:MYCARE CRSC HOFSTETTERDOB: Community ERNESTINA *IN [facility] [id number] Hospital RDAPOSTOLIC Number: Repository ANABAPTIST [id number] [place] Date:1651-40-04YEBP [address]Ngl: (614) CLAIMS [address]PT[phone] () [address], [place] [address]IO: 09/14/2018 Secondary NOT GIVENUNK [place] Insurance:SELF PAY [facility] Number: Effective Repository Date:2018-09-14 09/05/2018 NO J Primary NO J [place] [id number] Insurance:MYCARE CRSC HOFSTETTERDOB: Community ERNESTINA *IN [facility] [id number] Hospital RDAPOSTOLIC Number: Repository ANABAPTIST [id number] [place] Date:9805-97-97FWTU [address]Mix: (330) CLAIMS [phone] (HP) [address], [place] [address]YR: 09/05/2018 Secondary NOT GIVENUNK [place] Insurance:SELF PAY [facility] Number: Effective Repository Date:2018-09-05 08/30/2018 NO J Primary NO J [place] [id number] Insurance:MYCARE CRSC HOFSTETTERDOB: Community ERNESTINA *IN [facility] [id number] Hospital RDAPOSTOLIC Number: Repository ANABAPTIST [id number] [place] Date:9559-69-93FGFD [address]Vnq: (330) CLAIMS [phone] (HP) [address], [place] [address]WE: 08/30/2018 Secondary NOT GIVENUNK [place] Insurance:SELF PAY [facility] Number: Effective Repository Date:2018-08-30 08/23/2018 [facility] [place] [id number] Insurance:MYCARE CRSC HOFSTETTERDOB: Community ERNESTINA *IN [facility] [id number] Hospital RDAPOSTOLIC Number: Repository ANABAPTIST [id number] [place] Date:3355-36-79RURQ [address]Hqp: (330) CLAIMS [phone] (HP) [address], [place] [address]XJ: 08/23/2018 Secondary NOT GIVENUNK [place] Insurance:SELF PAY [facility] Number: Effective Repository Date:2018-08-23 08/18/[address] [facility] [facility] HospitalFSTETTERDOB: Insurance:[facility] HEALTHTETTERDOB: [facility] [id number] [facility] [place] [id number] Repository ernestina [facility] Number: [address] [place], [place] [id number] [place], [place] [address]Xyv: (330) Date:2018-08-1745937Kzy: (HP) 3220-88-26Gjof [id number] Name:NATTN Claims ()Tel: (000) DeptPO [address] (WP) [address], [place] [address]NC: 08/18/2018 Secondary [place] [facility] Insurance:MEDICARE HOTETTERDOB: [facility] [id number] Repository Number: [address] [id number], [place] Date:2018-08-1852514Cfl: 330 6815-06-05Bpwb [id number] Name:PCGS ()Tel: (000) Administrators LLCPO 000-0000 (WP) [address] [place] [address]TR: 08/16/2018 NO J Primary NO J [place] [id number] Insurance:MYCARE CRS HOFSTETTERDOB: [facility] *IN [place] 384841-05-25[place] Number: Repository [address]Mrg: 330 [id number] [phone] () Date:6927-70-65XTLV CLAIMS DEPTPO [address] [place] [address]EW: 08/16/2018 Secondary NOT GIVENUNK [place] Insurance:SELF PAY [facility] Number: Effective Repository Date:2018-08-16 08/09/2018 NO J Primary NO J [place] [id number] Insurance:MYCARE CRS HOFSTETTERDOB: [facility] *IN [facility] 8550-95-44ZQDMelvin, [place] Number: Repository [address]Ukd: 330 [id number] [phone] () Date:4254-61-60UTVJ CLAIMS DEPTPO [address] [place] [address]OA: 08/09/2018 Secondary NOT GIVENUNK [place] Insurance:SELF PAY [facility] Number: Effective Repository Date:2018-08-09 08/02/2018 NO J Primary NO J [place] [id number] Insurance:MYCARE CRSC HOFSTETTERDOB: Community SHAYE *IN [facility] 5377-49-43DCFMel[place], [place] Number: Repository [address]Fxh: 330 [id number] [phone] (HP) Date:2125-36-55FWOK CLAIMS [facility] [address] [place] [address]ZL: 08/02/2018 Secondary NOT GIVENUNK [place] Insurance:SELF PAY [facility] Number: Effective Repository Date:2018-08-02 07/26/2018 NO J Primary NO J [place] [id number] Insurance:MYCARE CRSC HOFSTETTERDOB: Community SHAYE *IN [facility] 4548-12-46EMOMelvin, [place] Number: Repository [address]Bcj: 330 [id number] [phone] (HP) Date:8424-41-25SCZL CLAIMS [facility] [address] [address]WW: 07/26/2018 Secondary NOT GIVENUNK [place] Insurance:SELF PAY [facility] Number: Effective Repository Date:2018-07-26 07/19/2018 NO J Primary NOT GIVENUNK [place] [id number] Insurance:SELF PAY [place] Number: Effective Repository [id number]: 330) Date:2018-07-19 [phone] () 07/12/2018 NO J Primary NO J [place] [id number] Insurance:MYCARE CRSC HOFSTETTERDOB: Community SHAYE *IN [facility] 7213-99-28BJUMelvin, [place] Number: Repository [address]Hcz: 330 [id number] [phone] (HP) Date:6957-20-79HHOF CLAIMS [address], [place] [address]PO: 07/12/2018 Secondary NOT GIVENUNK [place] Insurance:SELF PAY [facility] Number: Effective Repository Date:2018-07-12 07/07/2018 NO J Primary NO J [place] [id number] Insurance:MYCARE CRSC HOFSTETTERDOB: Community SHAYE *IN [facility] 6649-79-05FAZ[place], [place] Number: Repository [address]Nhz: 330 [id number] [phone] (HP) Date:6804-84-25QDDS CLAIMS DEPT[address] [place] [address]QD: 07/07/2018 Secondary NOT GIVENUNK [place] Insurance:SELF PAY [facility] Number: Effective Repository Date:2018-07-07 07/07/2018 NO J Primary NO J [place] [id number] Insurance:MYCARE CRSC HOFSTETTERDOB: Community [place] *IN [facility] 5914-18-50SKNMelvin, [place] Number: Repository [address]Fxx: 330 [id number] [phone] (HP) Date:7614-55-42HULZ CLAIMS DEPT[address] [place] [address]RC: 07/07/2018 Secondary NOT GIVENUNK [place] Insurance:SELF PAY [facility] Number: Effective Repository Date:2018-07-07 07/07/2018 NO J Primary NO J [place] [id number] Insurance:MYCARE CRSC HOFSTETTERDOB: Community SHAYE *IN [facility] 3693-42-99MPHMel[place], [place] Number: Repository [address]Waq: 330 [id number] [phone] (HP) Date:6666-67-50GLZG CLAIMS [address], [place] [address]ML: 07/07/2018 Secondary NOT GIVENUNK [place] Insurance:SELF PAY [facility] Number: Effective Repository Date:2018-07-07 07/07/2018 NO J Primary NO J [place] [id number] Insurance:MYCARE CRSC HOFSTETTERDOB: Community [place] *IN [facility] 8556-08-29VPRMel[place], [place] Number: Repository [address]Oug: 330 [id number] [phone] (HP) Date:7659-75-42PKDQ CLAIMS DEPT[address] [place] [address]VC: 07/07/2018 Secondary NOT GIVENUNK [place] Insurance:SELF PAY [facility] Number: Effective Repository Date:2018-07-07 07/07/2018 NO J Primary NO J [place] [id number] Insurance:MYCARE CRSC HOFSTETTERDOB: [facility] *IN [facility] 4232-91-75DKBMelvin, [place] Number: Repository [address]Loq: 330 [id number] [phone] (HP) Date:2248-13-57OQRR CLAIMS [address] [place] [address]CN: 07/07/2018 Secondary NOT GIVENUNK [place] Insurance:SELF PAY [facility] Number: Effective Repository Date:2018-07-07 07/07/2018 NO J Primary NO J [place] [id number] Insurance:MYCARE CRSC HOFSTETTERDOB: [facility] *IN [facility] 6130-84-04UGIMelvin, [place] Number: Repository [address]Rqb: 330 [id number] [phone] (HP) Date:7715-12-30RBLJ CLAIMS [address]PT[address] [place] [address]OT: 07/07/2018 Secondary NOT GIVENUNK [place] Insurance:SELF PAY [facility] Number: Effective Repository Date:2018-07-07 07/07/2018 NO J Primary NO J [place] [id number] Insurance:MYCARE CRSC HOFSTETTERDOB: Community [place] *IN [facility] 8916-98-07OQWMelvin, [place] Number: Repository [address]Ywn: 330 [id number] [phone] (HP) Date:1247-16-26CMFK CLAIMS DEPT[address] [place] [address]JQ: 07/07/2018 Secondary NOT GIVENUNK [place] Insurance:SELF PAY [facility] Number: Effective Repository Date:2018-07-07 05/26/2018 NO J Primary NO [facility] CenterFSTETTERDOB: Insurance:[facility] HOSPITALSHELLERB: [facility] [id number] [facility] [id number] Repository [facility] Number: [address] [facility] [address]Rpq: [id number] [place], [place] Date:2017-03-27 [address]Qgj: (826) (HP)Tel: ([phone]) 7842-20-65Ppsc [phone] (WP) Name:NATTN Claims (HP)Tel: (000) DeptPO [phone] (WP) [address] [place] [address]NT: 05/24/2018 NO J Primary NO J [place] [id number] Insurance:MYCARE CRSC HOFSTETTERDOB: Community HERITAGE *IN [facility] 2842-70-17QTTLacona, [place] Number: Repository [address]Yoe: 330 [id number] [phone] (HP) Date:5057-49-54KSIY CLAIMS DEPT[address] [place] [address]OX: 05/24/2018 Secondary NOT GIVENUNK [place] Insurance:SELF PAY [facility] Number: Effective Repository Date:2018-05-24 04/14/2018 NO J Primary NO J [place] [id number] Insurance:MYCARE CRSC HOFSTETTERDOB: Community HERITAGE *IN [facility] 3268-67-14DPDLacona, [place] Number: Repository [address]Vxx: 330 [id number] [phone] (HP) Date:1823-78-20ZJTP CLAIMS [facility] [address] [address]LN: 04/14/2018 Secondary NOT GIVENUNK [place] Insurance:SELF PAY [facility] Number: Effective Repository Date:2018-04-14 04/13/2018 NO J Primary NO J [place] [id number] Insurance:MYCARE CRSC HOFSTETTERDOB: Community HERITAGE *IN [facility] 0560-75-06QHLLacona, [place] Number: Repository [address]Fgp: 330 [id number] [phone] () Date:6142-97-04WIBN [facility]S [facility] [address] [address]TS: 04/13/2018 Secondary NOT GIVENUNK [place] Insurance:SELF PAY [facility] Number: Effective Repository Date:2018-04-13 04/13/2018 NO J Primary NO J [place] [id number] Insurance:MYCARE CRSC HOFSTETTERDOB: Community HERITAGE *IN [facility] 1741-86-58ODWLacona, [place] Number: Repository [address]Uym: 330 [id number] [phone] () Date:4456-55-33KOKR CLAIMS [facility] [address] [address]JO: 04/13/2018 Secondary NOT GIVENUNK [place] Insurance:SELF PAY [facility] Number: Effective Repository Date:2018-04-13 04/13/2018 NO J Primary NO J [place] [id number] Insurance:MYCARE CRSC HOFSTETTERDOB: Community HERITAGE *IN [facility] 7155-26-09EAXLacona, [place] Number: Repository [address]Lqh: 330 [id number] [phone] (HP) Date:7735-36-50PGZY CLAIMS [address], [place] [address]FA: 04/13/2018 Secondary NOT GIVENUNK [place] Insurance:SELF PAY [facility] Number: Effective Repository Date:2018-04-13 04/13/2018 NO J Primary NO J [place] [id number] Insurance:MYCARE CRSC HOFSTETTERDOB: Community HERITAGE *IN [facility] 3146-36-51PDFLacona, [place] Number: Repository [address]Vfh: 330 [id number] [phone] (HP) Date:8588-22-65QAEU CLAIMS [address] [place] [address]FL: 04/13/2018 Secondary NOT GIVENUNK [place] Insurance:SELF PAY [facility] Number: Effective Repository Date:2018-04-13 04/13/2018 NO J Primary NO J [place] [id number] Insurance:MYCARE CRSC HOFSTETTERDOB: Community HERITAGE *IN [facility] 1908-88-93WCALacona, [place] Number: Repository [address]Jvh: 330 [id number] [phone] (HP) Date:9557-53-02FGDM CLAIMS [address], [place] [address]AR: 04/13/2018 Secondary NOT GIVENUNK [place] Insurance:SELF PAY [facility] Number: Effective Repository Date:2018-04-13 04/13/2018 NO J Primary NO J [place] [id number] Insurance:MYCARE CRSC HOFSTETTERDOB: Community HERITAGE *IN [facility] [id number] [place] [address] Number: Repository [address]Cyc: 330 [id number] [phone] (HP) Date:0236-39-42DVMC CLAIMS [address], [place] [address]ND: 04/13/2018 Secondary NOT GIVENUNK [place] Insurance:SELF PAY [facility] Number: Effective Repository Date:2018-04-13 04/13/2018 NO J Primary NO J [place] [id number] Insurance:MYCARE CRSC HOFSTETTERDOB: Community HERITAGE *IN [facility] 4660-56-01HPQLacona, [place] Number: Repository [address]Sqy: ([phone]) [id number] [phone] () Date:3622-51-77CKAH CLAIMS [address] [place] [address]SE: 04/13/2018 Secondary NOT GIVENUNK [place] Insurance:SELF PAY [facility] Number: Effective Repository Date:2018-04-13 04/13/2018 NO J Primary NO J [place] [id number] Insurance:MYCARE CRSC HOFSTETTERDOB: Community HERITAGE *IN [facility] 8862-74-61TNOLacona, [place] Number: Repository [address]Drv: (018) [id number] [phone] () Date:0529-30-11FBRR CLAIMS [address] [place] [address]TD: 04/13/2018 Secondary NOT GIVENUNK [place] Insurance:SELF PAY [facility] Number: Effective Repository Date:2018-04-13 03/19/2018 [place] [facility] HofstetterDOB: Insurance:MedicarePol HofstetterDOB: System [id number] icy Number: Effective [id number] Repository [place], [place] Date: [address]Mwv: () 03/19/2018 Secondary [facility] Insurance:MedicarePol HofstetterDOB: System icy Number: Effective [id number] Repository Date: 03/19/2018 Tertiary [facility] Insurance:MedicaidPol HofstetterDOB: System icy Number: Effective [id number] Repository Date: 03/18/2018 NO J Primary NO J [place] [id number] Insurance:MEDICARE HOFSTETTERDOB: Community HERITAGE PART A [facility] [id number], [place] Number: Repository [address]Ktt: 330 [id number] [phone] () Date:2018-03-17 03/18/2018 Secondary NO J [place] Insurance:MEDICAIDPol HOFSTETTERDOB: Community icy Number: [id number] Hospital [id number] Repository Date:2018-03-17 03/18/2018 Tertiary NOT GIVENUNK [place] Insurance:SELF PAY [facility] Number: Effective Repository Date:2018-03-17 03/18/2018 NO J Primary NO J [place] [id number] Insurance:MEDICARE HOFSTETTERDOB: Community HERIT[place] PART A [id number] [place] Number: Repository [address]Nym: 330 [id number] [phone] () Date:2018-03-17 03/18/2018 Secondary NO J [place] Insurance:MEDICAIDPol HOFSTETTERDOB: Community icy Number: [id number] Hospital [id number] Repository Date:2018-03-17 03/18/2018 Tertiary NOT GIVENUNK [place] Insurance:SELF PAY [facility] Number: Effective Repository Date:2018-03-18 03/18/2018 NO J Primary NO J [place] [id number] Insurance:MEDICARE HOFSTETTERDOB: Community [place]IT[place] PART A [facility] [id number] [place] Number: Repository [address]Vlr: 330 [id number] [phone] () Date:2018-03-17 03/18/2018 Secondary NO J [place] Insurance:MEDICAIDPol HOFSTETTERDOB: Community icy Number: [id number] Hospital [id number] Repository Date:2018-03-17 03/18/2018 Tertiary NOT GIVENUNK [place] Insurance:SELF PAY [facility] Number: Effective Repository Date:2018-03-17 03/18/2018 NO J Primary NO J [place] [id number] Insurance:MEDICARE HOFSTETTERDOB: [facility] HERITAGE PART A BPolicy [id number], [place] Number: Repository [address]Zik: 330 [id number] [phone] (HP) Date:2018-03-17 03/18/2018 Secondary NO J [place] Insurance:MEDICAIDGeisinger-Bloomsburg HospitalTETTERDOB: [facility] icy Number: [id number] Hospital [id number] Repository Date:2018-03-17 03/18/2018 Tertiary NOT GIVENUNK [place] Insurance:SELF PAY [facility] Number: Effective Repository Date:2018-03-18 02/24/2018 NO J [facility]ET[facility]DOB: Insurance:MEDICARE [facility] CENTERERDOB: [facility] [id number] PART BPolicy Number: [id number] Repository MIGUEL ANGELALYSSIA RINCON, [id number] [address] [facility] [address]Bea: Date:2018-02-24 - [place] 4877-57-72Abub [address]Hhe: (419) (HP)Tel: (000) Name:[facility] [id number] [phone] (WP) Administrators LLCPO (HP)Tel: (000) [address]Obpbykttg, 000-0000 (WP) [place] [address]CQ: 02/24/2018 Secondary [facility] Insurance:[facility]: [facility] [id number] Repository MCAIDPolicy Number: 42 MIGUEL ANGEL [id number] [facility]ENTERJAY [place]LA[place], [place] Date:2018-02-24 - [address]Ydr: ([phone]) 1389-11-31Ppiq [phone] Name:Bal Burleson (HP)Tel: [phone], [place] 000-0000 (WP) [address]CG: 02/03/2018 [facility] Primary [facility] HospitalTETTDOB: Insurance:MEDICARE [facility] MARK'S HOSPITALTETTERDOB: [facility] [id number] PART BPolicy Number: [id number] Repository MIGUEL ANGELALYSSIA RINCON, [id number] [address] [facility] [address]Dfc: Date:2018-02-01 - [place] 0741-64-47Pzqy [address]Afj: (330) (HP)Tel: (999) Name:[address]61 [phone] (WP) Administrators LLCPO (HP)Tel: (000) [address]Mveuuajfk, 000-0000 (WP) [place] [address]HG: 02/03/2018 Secondary [facility] Insurance:[facility]AREB: [facility] [id number] Repository [facility]PITALIDPolunitypoint [facility] Number: [address] [place] [id number] [facility]ENTERJAY [place]LA[place], [place] Date:2018-02-01 [address]Ibu: (697) 9108-50-59Hhcn [phone] Name:XCenpaticoPO Box (HP)Tel: ([phone]) [phone], [place] 000-0000 (WP) [address]ZA: 02/01/2018 Baldemar [facility] Insurance:MEDICARE [facility] PINEVILLETTERDOB: [facility] Hospitalson RdDaltjay jay, PART A [facility] [id number] Indian Health Center [address]Uhh: Number: Repository [id number] () Date:2018-02-01 02/01/2018 Secondary NOT GIVENUNK [place] Insurance:SELF PAY [facility] Number: Effective Repository Date:2018-02-01 11/16/2017 [facility] Mary[facility]aleDOB: Insurance:MEDICARE [facility] AT PINEVILLETTERDOB: [facility] [id number] PART BPolicy Number: [id number] Repository MIGUEL ANGEL SERGEY, [id number] [address] [facility] [address]Cyr: Date:2017-11-16 - [place] 1613-59-27Dfnm [address]Jgj: (330) (HP)Tel: (999) Name:[facility] [phone] (WP) Administrators LLCPO ()Tel: (000) [address]Fckqwyxkn, 000-0000 (WP) [place] [address]KX:
== END ==
LOC: OLS.ACH 04:00
PROVIDERS: Visit Provider Family Medicine
DX: I10 Essential (primary) hypertension (principal)
CPT/HCPCS: 36415; 80048

== ENCOUNTER → 2018-09-05 04:00 | Outpatient (REF) | payer MEDICARE, SELFPAY ==
[2018-09-05 07:46] LABS: Anion Gap 11 (5-15); BUN 29 mg/dL (7-18); BUN/Creat Ratio 22.7 RATIO (10-20); Calcium,Total 8.6 mg/dL (8.5-10.1); Chloride 105 mmol/L (98-107); Creatinine, Serum 1.28 mg/dL (0.55-1.02); EST Glomerular Filtration Rate 43 mL/min (>60); Est Glom Filt Rate - Afr Amer 52 mL/min (>60); Glucose 59 mg/dL (74-106); Potassium 4.4 mmol/L (3.5-5.1); Sodium Level 143 mmol/L (136-145)
== END ==
LOC: OLS.ACH 04:00
PROVIDERS: Visit Provider Family Medicine
DX: I10 Essential (primary) hypertension (principal)
CPT/HCPCS: 36415; 80048

== ENCOUNTER → 2018-09-14 05:00 | Outpatient (REF) | payer MEDICARE, SELFPAY ==
[2018-09-14 07:40] LABS: Anion Gap 10 (5-15); BUN 23 mg/dL (7-18); BUN/Creat Ratio 19.7 RATIO (10-20); Calcium,Total 8.7 mg/dL (8.5-10.1); Chloride 107 mmol/L (98-107); Creatinine, Serum 1.17 mg/dL (0.55-1.02); EST Glomerular Filtration Rate 48 mL/min (>60); Est Glom Filt Rate - Afr Amer 58 mL/min (>60); Glucose 124 mg/dL (74-106); Potassium 4.7 mmol/L (3.5-5.1); Sodium Level 140 mmol/L (136-145)
== END ==
LOC: OLS.ACH 05:00
PROVIDERS: Visit Provider Family Medicine
DX: I10 Essential (primary) hypertension (principal)
CPT/HCPCS: 36415; 80048

== ENCOUNTER → 2018-09-20 05:00 | Outpatient (REF) | payer MEDICARE, SELFPAY ==
[2018-09-20 08:26] LABS: Anion Gap 7 (5-15); BUN 24 mg/dL (7-18); BUN/Creat Ratio 21.2 RATIO (10-20); Calcium,Total 8.9 mg/dL (8.5-10.1); Chloride 106 mmol/L (98-107); Creatinine, Serum 1.13 mg/dL (0.55-1.02); EST Glomerular Filtration Rate 50 mL/min (>60); Est Glom Filt Rate - Afr Amer 60 mL/min (>60); Glucose 91 mg/dL (74-106); Potassium 4.4 mmol/L (3.5-5.1); Sodium Level 140 mmol/L (136-145)
== END ==
LOC: OLS.ACH 05:00
PROVIDERS: Visit Provider Family Medicine
DX: I10 Essential (primary) hypertension (principal)
CPT/HCPCS: 36415; 80048

== ENCOUNTER → 2018-09-27 05:00 | Outpatient (REF) | payer MEDICARE, SELFPAY ==
[2018-09-27 08:33] LABS: Anion Gap 9 (5-15); BUN 35 mg/dL (7-18); BUN/Creat Ratio 29.7 RATIO (10-20); Calcium,Total 8.8 mg/dL (8.5-10.1); Chloride 105 mmol/L (98-107); Creatinine, Serum 1.18 mg/dL (0.55-1.02); EST Glomerular Filtration Rate 47 mL/min (>60); Est Glom Filt Rate - Afr Amer 57 mL/min (>60); Glucose 116 mg/dL (74-106); Potassium 4.7 mmol/L (3.5-5.1); Sodium Level 140 mmol/L (136-145)
== END ==
LOC: OLS.ACH 05:00
PROVIDERS: Visit Provider Family Medicine
DX: I10 Essential (primary) hypertension (principal)
CPT/HCPCS: 36415; 80048

== ENCOUNTER → 2018-10-04 05:00 | Outpatient (REF) | payer MEDICARE, SELFPAY ==
[2018-10-04 08:37] LABS: Anion Gap 10 (5-15); BUN 29 mg/dL (7-18); BUN/Creat Ratio 26.6 RATIO (10-20); Calcium,Total 9.2 mg/dL (8.5-10.1); Chloride 106 mmol/L (98-107); Creatinine, Serum 1.09 mg/dL (0.55-1.02); EST Glomerular Filtration Rate 52 mL/min (>60); Est Glom Filt Rate - Afr Amer 63 mL/min (>60); Glucose 106 mg/dL (74-106); Potassium 4.9 mmol/L (3.5-5.1); Sodium Level 141 mmol/L (136-145)
--- OUTSIDE RECORDS SUMMARY | 2018-12-06 06:38 | XMS RPT_ITS ---
:1940 Author Organization [place] Support Name Relationship Address Phone Aakash Muniz/Liseth Unavailable [address] + [place] [address] R Unavailable Unavailable Unavailable Antony Kimble Unavailable [address] + [place] [address] Aakash Muniz/Ilseth Unavailable [address] + [place] [address] R Unavailable Unavailable Unavailable Antony Kimble Unavailable [address] + [place] [address] Aakash Muniz/Liseth Unavailable [address] + [place] [address] R Unavailable Unavailable Unavailable Antony Kimble Unavailable [address] + [place] [address] Aakash Muniz/Liseth Unavailable [address] + [place] [address] R Unavailable Unavailable Unavailable Antony Kimble Unavailable [address] + [place] [address] Aakash Muniz/Liseth Unavailable [address] + [place] [address] R Unavailable Unavailable Unavailable Shyanne, Antony Unavailable [address] + [place] [address] Aakash Muniz/Liseth Unavailable [address] + [place] [address] R Unavailable Unavailable Unavailable Antony Kimble Unavailable [address] + [place] [address] Cristy Aakash/Liseth Unavailable [address] + [place] [address] R Unavailable Unavailable Unavailable Azalia Kimblee Unavailable [address] + [place] [address] BALDEMAR MUNIZ Unavailable Unavailable + BALDEMAR MUNIZ Unavailable Unavailable + Cristy Aakash/Liseth Unavailable [address] + [place] [address] R Unavailable Unavailable Unavailable Azalia Kimblee Unavailable [address] + [place] [address] Cristy Aakash/Liseth Unavailable [address] + [place] [address] R Unavailable Unavailable Unavailable Antony Kimble Unavailable [address] + [place] [address] Aakash Muniz/Liseth Unavailable [address] + [place] [address] R Unavailable Unavailable Unavailable Antony Kimble Unavailable [address] + [place] [address] Aakash Muniz/Liseth Unavailable [address] + [place] [address] R Unavailable Unavailable Unavailable Antony Kimble Unavailable [address] + [place] [address] Aakash Muniz/Liseth Unavailable [address] + [place] [address] R Unavailable Unavailable Unavailable Azalia Kimblee Unavailable [address] + [place] [address] Cristy Aakash/Liseth Unavailable [address] + [place] [address] R Unavailable Unavailable Unavailable Shyanne, Antony Unavailable [address] + [place] [address] Cristy Aakash/Liseth Unavailable [address] + [place] [address] R Unavailable Unavailable Unavailable Antony Kimble Unavailable [address] + [place] [address] Cristy Aakash/Liseth Unavailable [address] + [place] [address] R Unavailable Unavailable Unavailable Antony Kimble Unavailable [address] + [place] [address] CRISTY AAKASH/LISETH Unavailable [address] + [place] [address] R Unavailable Unavailable Unavailable ANTONY KIMBLE Unavailable [address] + [place] [address] LUIS FERNANDOALEJANDRINARANDAAAKASH SAL/LISETH Unavailable [address] + [place] [address] R Unavailable Unavailable Unavailable ANTONY KIMBLE Unavailable [address] + [place] [address] Luis Fernandoalejandrinadaria Aakash/Liseth Unavailable [address] + [place] [address] R Unavailable Unavailable Unavailable Antony Kimble Unavailable [address] + [place] [address] LUIS FERNANDOALEJANDRINADARIAAAKASH/LISETH Unavailable [address] + [place] [address] R Unavailable Unavailable Unavailable SHYANNEAZALIAE Unavailable [address] + [place] [address] CRISTY AAKASH/LISETH Unavailable [address] [facility] [address] + [place] [address] R Unavailable Unavailable Unavailable SHYANNEAZALIAE Unavailable [address] + [place] [address] BALDEMAR MUNIZ Unavailable Unavailable + BALDEMAR MUNIZ Unavailable Unavailable + CRISTY AAKASH/LISETH Unavailable Unavailable + R Unavailable Unavailable Unavailable SHYANNEHIEUANTONY Unavailable [address] + [place] [address] CRISTY AAKASH/LISETH Unavailable Unavailable + R Unavailable Unavailable Unavailable ANTONY KIMBLE Unavailable [address] + [place] [address] CRISTY AAKASH/LISETH Unavailable Unavailable + R Unavailable Unavailable Unavailable ANTONY KIMBLE Unavailable [address] + [place] [address] CRISTY AAKASH/LISETH Unavailable Unavailable + R Unavailable Unavailable Unavailable ANTONY KIMBLE Unavailable [address] + [place] [address] JONATTJONELLE AAKASH/LISETH Unavailable Unavailable + R Unavailable Unavailable Unavailable ANTONY KIMBLE Unavailable [address] + [place] [address] CRISTY AAKASH/LISETH Unavailable Unavailable + R Unavailable Unavailable Unavailable ANTONY KIMBLE Unavailable [address] + [place] [address] CRISTY AAKASH/LISETH Unavailable Unavailable + R Unavailable Unavailable Unavailable ANTONY KIMBLE Unavailable [address] + [place] [address] CRISTY AAKASH/LISETH Unavailable Unavailable + R Unavailable Unavailable Unavailable ANTONY KIMBLE Unavailable [address] + [place] [address] CRISTY AAKASH/LISETH Unavailable Unavailable + R Unavailable Unavailable Unavailable ANTONY KIMBLE Unavailable [address] + [place] [address] CRISTY AAKASH/LISETH Unavailable Unavailable + R Unavailable Unavailable Unavailable ANTONY KIMBLE Unavailable [address] + [place] [address] JhonyteAakash nevarez Unavailable Unavailable + JHONYTEDANY AAKASH/LISETH Unavailable Unavailable + R Unavailable Unavailable Unavailable SHYANNE, ANTONY Unavailable [address] + [place] [address] AAKASH MUNIZ/LISETH Unavailable Unavailable + R Unavailable Unavailable Unavailable ANTONY KIMBLE Unavailable [address] + [place] [address] AAKASH MUNIZ/LISETH Unavailable Unavailable + R Unavailable Unavailable Unavailable ANTONY KIMBLE Unavailable [address] + [place] [address] AAKASH MUNIZ/LISETH Unavailable Unavailable + R Unavailable Unavailable Unavailable ANTONY KIMBLE Unavailable [address] + [place] [address] BALDEMAR MUNIZ Unavailable Unavailable + BALDEMAR MUNIZ Unavailable Unavailable + BALDEMAR MUNIZ Unavailable Unavailable + BALDEMAR MUNIZ Unavailable Unavailable + SANTINO MUNIZLEY Unavailable [address] + [place] [address] R Unavailable Unavailable Unavailable BALDEMAR MUNIZ Unavailable [...] Care Unavailable REFERRING REFERRING, BRENT KENNEDY WO ID~[id number] Attending Unavailable LATIA CHAPA CNP Primary Care Unavailable Jovnani Valdez Attending Unavailable PROVIDER, UNKNOWN Referring Unavailable No, PCP Primary Care Unavailable JAMESONMHARRIETT L Attending Unavailable RIEHMHARRIETT L Referring Unavailable RIHADLEYMHARRIETT L Attending Unavailable RIEHM, HARRIETT L Referring Unavailable Oleghe, Ifijen Admitting Unavailable Dirk Kowalski Attending Unavailable Latia Chapa WATCH ASSEMBLY INSPECTOR-C Primary Care Unavailable Dex, Dirk Consulting Unavailable Shan Henry Attending Unavailable Oleghe, Efewongbe Referring Unavailable Averya, Jono Attending Unavailable Averya, Jono Attending Unavailable Bre, Jono Attending Unavailable Thelmalla, Jono Attending Unavailable Oleghe, Ifijen Admitting Unavailable Osvaldoelfah, Ghasem Attending Unavailable Latia Chapa. WATCH ASSEMBLY INSPECTOR-C Primary Care Unavailable Ashelfah, Ghasem Consulting Unavailable Oleghe, Ifijen Admitting Unavailable Dirk Kowalski Attending Unavailable Latia Chapa WATCH ASSEMBLY INSPECTOR-C Primary Care Unavailable Blueri, Dirk Consulting Unavailable Oleghe, Ifijen Admitting Unavailable Srini Taveras Attending Unavailable Latia Chapa WATCH ASSEMBLY INSPECTOR-C Primary Care Unavailable Nitin, Srini Consulting Unavailable Oleghe, Ifijen Admitting Unavailable Srini Taveras Attending Unavailable Latia Chapa. WATCH ASSEMBLY INSPECTOR-C Primary Care Unavailable Maryeletsky, Srini Consulting Unavailable Oleghe, Ifijen Admitting Unavailable Latia Chapa WATCH ASSEMBLY INSPECTOR-C Primary Care Unavailable Oleghe, Ifijen Consulting Unavailable Angella Waddell Attending Unavailable Latia Chapa. WATCH ASSEMBLY INSPECTOR-C Primary Care Unavailable Oleghe, Ifijen Admitting Unavailable Ashelfah, Ghasem Attending Unavailable Koram, Claudia Little Attending Unavailable Koram, Claudia Little Attending Unavailable Koram, Claudia Little Admitting Unavailable Latia Chapa. WATCH ASSEMBLY INSPECTOR-C Primary Care Unavailable Koram, Claudia Little Consulting Unavailable Koram, Claudia Little Attending Unavailable Latia Chapa. WATCH ASSEMBLY INSPECTOR-C Primary Care Unavailable Koram, Claudia Little Admitting Unavailable Koram, Claudia Little Attending Unavailable Maylin Real Attending Unavailable Bre, Jono Attending Unavailable Petrilla, Jono Attending Unavailable Nicholas Marquez Attending Unavailable Koram, Claudia Little Referring Unavailable Thelmalla, Jono Attending Unavailable Bre, Jono Attending Unavailable Koram, Claudia Little Admitting Unavailable Latia Chapa. WATCH ASSEMBLY INSPECTOR-C Primary Care Unavailable Jopperi, Dirk Consulting Unavailable Blueri, Dirk Attending Unavailable Koram, Claudia Little Admitting Unavailable Kaushal Jassi Attending Unavailable Latia Chapa WATCH ASSEMBLY INSPECTOR-C Primary Care Unavailable Steinberger, Jassi Consulting Unavailable Koram, Claudia Little Admitting Unavailable Kaushal, Jassi Attending Unavailable Latia Chapa WATCH ASSEMBLY INSPECTOR-C Primary Care Unavailable Kaushal, Jassi Consulting Unavailable Latia Chapa WATCH ASSEMBLY INSPECTOR-C Primary Care Unavailable Koram, Claudia Little Admitting Unavailable Dirk Kowalski Attending Unavailable Latia Chapa WATCH ASSEMBLY INSPECTOR-C Primary Care Unavailable Belgica Mtz Attending Unavailable Blas Angeles Admitting Unavailable Latia Chapa WATCH ASSEMBLY INSPECTOR-C Primary Care Unavailable Ashelfah, Ghasem Consulting Unavailable Ashelfah, Ghasem Attending Unavailable Petrilla, Jono Attending Unavailable Petrilla, Jono Attending Unavailable Petrilla, Jono Attending Unavailable Petrilla, Jono Attending Unavailable Koram, Claudia Little Admitting Unavailable Kaushal, Jassi Attending Unavailable Latia Chapa WATCH ASSEMBLY INSPECTOR-C Primary Care Unavailable Ederberger, Jassi Consulting Unavailable Koram, Claudia Little Admitting Unavailable Koram, Claudia Little Attending Unavailable Latia Chapa WATCH ASSEMBLY INSPECTOR-C Primary Care Unavailable Koram, Claudia Little Consulting Unavailable Petrilla, Jono Attending Unavailable PROBLEMS PROBLEMS DATE TYPE CONDITION / CODE ATTENDING STATUS SOURCE Unknown I10 - Essential Petrilla, Active [facility] (primary) hypertension [facility] / I10(ICD-10) Hospital Repository Unknown D64.9 - Anemia, Petrilla, Active [facility] unspecified / [facility] D64.9(ICD-10) Hospital Repository Unknown E11.9 - Type 2 Petrilla, Active [facility] 8 diabetes mellitus [facility] without complications Hospital / E11.9(ICD-10) Repository Unknown R94.31 - Abnormal Nicholas Marquez Active [facility] 8 electrocardiogram [facility] [EKG] / Hospital R94.31(ICD-10) Repository Unknown M54.12 - Dirk Kowalski Active [facility] 8 Radiculopathy, Community cervical region / Hospital M54.12(ICD-10) Repository Unknown M54.9 - Dorsalgia, Mtz, Active [facility] 8 unspecified / [facility] M54.9(ICD-10) Hospital Repository Admitting Pain in right shoulder HARRIETT ALEJANDRE [facility] 8 Diagnosis / M25.511(ICD-10) [facility] ([place]) Repository Unknown I44.7 - Left Carl, Shan Active [facility] 8 bundle-branch block, Community unspecified / Hospital I44.7(ICD-10) Repository Admitting Hypothyroidism, Valdez, [facility] 8 Diagnosis unspecified / System E03.9(ICD-10) Repository Admitting Vitamin D deficiency, Valdez, Wakozi 8 Diagnosis unspecified / System E55.9(ICD-10) Repository Admitting Anesthesia of skin / Valdez, Wakozi 8 Diagnosis R20.0(ICD-10) System Repository Admitting Spinal stenosis, Valdez, W[facility] 8 Diagnosis cervical region / System M48.02(ICD-10) Repository Admitting Other spondylosis with Valdez, [facility]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, cervical System region / Repository M47.12(ICD-10) Admitting Urinary tract [facility] 8 Diagnosis infection, site not System specified / Repository N39.0(ICD-10) Admitting Other spondylosis with Valdez, Wakozi 8 Diagnosis radiculopathy, System cervical region / Repository M47.22(ICD-10) Admitting Type 2 diabetes [facility] 8 Diagnosis mellitus with System hyperglycemia / Repository E11.65(ICD-10) Admitting penitentiary (current) [facility] 8 Diagnosis use of insulin / System Z79.4(ICD-10) Repository Admitting Bradycardia, Valdez, W[facility]i 8 Diagnosis unspecified / System R00.1(ICD-10) Repository Admitting Type 2 diabetes Valdez, Wakozi 8 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 Repository / E11.22(ICD-10) Admitting Hypertensive chronic [facility] 8 Diagnosis kidney disease w stg System 1-4/unsp chr kdny / Repository I12.9(ICD-10) Admitting Chronic kidney Valdez [facility] 8 Diagnosis disease, stage 3 System (moderate) / Repository N18.3(ICD-10) 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 [facility] 8 Diagnosis 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 / System Z79.82(ICD-10) Repository 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 / Repository I25.10(ICD-10) Admitting Presence of Valdez, 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(ICD-10) Repository Admitting Left bundle-branch Valdez, Wakozi 8 Diagnosis block, unspecified / System I44.7(ICD-10) Repository Admitting Long QT syndrome / Valdez, Wakozi 8 Diagnosis I45.81(ICD-10) System Repository Admitting Unsp Escherichia coli Valdez, Wakozi 8 Diagnosis as the cause of System [facility] / B96.20(ICD-10) Admitting Constipation, Valdez, Wakozi 8 Diagnosis unspecified / System K59.00(ICD-10) Repository Admitting Iron deficiency Valdez, Wakozi 8 Diagnosis anemia, unspecified / System D50.9(ICD-10) Repository Admitting Obesity, unspecified / Valdez, Jovanni Active [facility] 8 Diagnosis E66.9(ICD-10) System Repository Admitting Body mass index (BMI) Valdez, Jovanni Active [facility] 8 Diagnosis 32.0-32.9, adult / System Z68.32(ICD-10) Repository Admitting Coma scale, best motor Valdez, [facility] 8 Diagnosis response, obeys System commands, admit / Repository R40.2363(ICD-10) Admitting Coma scale, eyes open, Pancho Jovanni [employer] 8 Diagnosis spontaneous, at System hospital admission / Repository R40.2143(ICD-10) Admitting Coma scale, best Pancho Jovanni [employer] 8 Diagnosis verbal response, System oriented, admit / Repository R40.2253(ICD-10) Admitting History of falling / Pancho Jovanni Active [facility] 8 Diagnosis Z91.81(ICD-10) System Repository Admitting Major depressive Pancho [facility] 8 Diagnosis disorder, single System episode, unspecified / Repository F32.9(ICD-10) Admitting Insomnia, unspecified Pancho [facility] 8 Diagnosis / G47.00(ICD-10) System Repository Admitting Hyperlipidemia, Valdez, [facility] 8 Diagnosis unspecified / System E78.5(ICD-10) Repository Admitting 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 Repository PROCEDURES PROCEDURES No Procedure Records FoundRESULTS RESULTS BASIC METABOLIC Collected: 10/04/2018 Status: F Source: INGE PROFILE (BMP) 5:40 AM [facility] REPOSITORY Order Comment: 303/2 TYPE CODE TESTS [...] GAP 10 Performed By: #### L500.2500 #### [facility] [address] [place], [address] BASIC METABOLIC Collected: 09/27/2018 Status: F Source: COLEMAN PROFILE (BMP) 5:35 AM [facility] REPOSITORY Order Comment: ROOM 303-2 TYPE CODE [...] GAP 9 Performed By: #### L500.2500 #### [facility] [address] [place], [place], [address] BASIC METABOLIC Collected: 09/20/2018 Status: F Source: INGE PROFILE ([facility]) 6:20 AM [facility] REPOSITORY Order Comment: 303/2 TYPE CODE TESTS [...] GAP 7 Performed By: #### L500.2500 #### [facility] [address] [place], [address] BASIC METABOLIC Collected: 09/14/2018 Status: F Source: INGE PROFILE ([facility]) 6:37 AM [facility] REPOSITORY Order Comment: 303/2 TYPE CODE TESTS [...] GAP 10 Performed By: #### L500.2500 #### [facility] [address] [place], [address] BASIC METABOLIC Collected: 09/05/2018 Status: F Source: INGE PROFILE ([facility]) 4:20 AM [facility] REPOSITORY Order Comment: 303/2 TYPE CODE TESTS [...] GAP 11 Performed By: #### L500.2500 #### [facility] [address] [place], [place], [address] BASIC METABOLIC Collected: 08/30/2018 Status: F Source: INGE PROFILE (BMP) 6:20 AM [facility] REPOSITORY Order Comment: 303/2 TYPE CODE TESTS [...] GAP 9 Performed By: #### L500.2500 #### [facility] [address] [facility] [place], [place], [address] BASIC METABOLIC Collected: 08/23/2018 Status: F Source: INGE PROFILE (BMP) 4:49 AM [facility] REPOSITORY Order Comment: 303/2 TYPE CODE TESTS [...] 7 GAP Performed By: #### L500.2500 #### [facility] [address] [place] [address]. [place], [place], [address] MRI SPINE CERVICAL Observed: 08/18/2018 Status: F Source: [facility] W/O CONTRAST 2:00 PM [facility] REPOSITORY ORIGINAL [...] F Source: INGE PROFILE (BMP) 6:05 AM [facility] REPOSITORY Order Comment: ROOM 303 TYPE CODE [...] GAP 9 Performed By: #### L500.2500 #### [facility] [address] [place], [place], [id number] BASIC METABOLIC Collected: 08/09/2018 Status: F Source: INGE PROFILE (BMP) 6:40 AM [facility] REPOSITORY Order Comment: ROOM 303 TYPE CODE [...] GAP 10 Performed By: #### L500.2500 #### [facility] [address] [place], [place], [id number] CBC-COMPLETE BLOOD CNT Collected: 08/09/2018 Status: F Source: INGE NO DIFF 6:40 AM [facility] REPOSITORY Order Comment: ROOM 303 TYPE CODE [...] MPV 12.4 Performed By: #### L100.0500 #### [facility] [address] [place], [place], [id number] CBC-COMPLETE BLOOD CNT Collected: 08/02/2018 Status: F Source: INGE NO DIFF 5:55 AM [facility] REPOSITORY Order Comment: 303-2 TYPE CODE TESTS [...] MPV 12.3 Performed By: #### L100.0500 #### [facility] [address] [place], [address] BASIC METABOLIC Collected: 08/02/2018 Status: F Source: INGE PROFILE (BMP) 5:55 AM [facility] REPOSITORY Order Comment: 303-2 TYPE CODE TESTS [...] GAP 9 Performed By: #### L500.2500 #### [facility] [address] [place], [address] CBC-COMPLETE BLOOD CNT Collected: 07/26/2018 Status: F Source: INGE NO DIFF 7:35 AM [facility] REPOSITORY Order Comment: RM: 303/2 TYPE CODE [...] MPV 11.5 Performed By: #### L100.0500 #### [facility] [address] [place], [place], [address] BASIC METABOLIC Collected: 07/26/2018 Status: F Source: INGE PROFILE ([facility]) 7:35 AM [facility] REPOSITORY Order Comment: RM: 303/2 TYPE CODE [...] GAP 6 Performed By: #### L500.2500 #### [facility] [address] [place], [address] 12 LEAD ELECTROCARDIOGRAM Observed: 07/20/2018 Status: F Source: INGE 2:51 PM [facility] REPOSITORY [facility] Services [address] [place] [address] 12 Lead EKG 07/08/18 0456 MR#: [id number] Acct: [id number] Name: NO MUNIZ Rep #: [id number] : 1940 78 From: Shan Henry MD Attending Dr: iDrk Kowalski DO Status: DIS DEISY Ordering Dr: Jassi Easley MD Date: 07/08/18 Location: [facility] Sex: F C Admitted: 07/07/18 Test Reason [...] UNCONFIRMED Confirmed by SHAN HENRY MD ([id number]), scientific publications editor DAMIAN MCCRACKEN ([id number]) on 07/20/2018 2:50:35 PM Referred By: ARIS Confirmed By:SHAN HENRY MD 07/20/18 1450 Date Shan Henry MD CC: WATCH ASSEMBLY INSPECTORKristopher Chapa; Dirk Kowalski DO; Jassi Easley MD Signed CBC-COMPLETE BLOOD CNT Collected: 07/19/2018 Status: F Source: INGE NO DIFF 5:40 AM [facility] REPOSITORY Order Comment: ROOM 303 TYPE CODE [...] MPV 13.8 Performed By: #### L100.0500 #### [facility] [address] [place], [place], [address] BASIC METABOLIC Collected: 07/19/2018 Status: F Source: COLEMAN PROFILE (BMP) 5:40 AM [facility] REPOSITORY Order Comment: ROOM 303 TYPE CODE [...] GAP 9 Performed By: #### L500.2500 #### [facility] [address] [place], [address] 12 LEAD ELECTROCARDIOGRAM Observed: 07/14/2018 Status: F Source: INGE 4:13 PM [facility] REPOSITORY [facility] Cardiovascular Services [address] [place] [address] 12 Lead EKG 07/08/18 2104 MR#: [id number] Acct: [id number] Name: NO MUNIZ John Rep #: [id number] : 1940 78 From: Jassi Lord MD Attending Dr: Dirk Kowalski DO Status: DIS DEISY Ordering Dr: Claudia Cruz MD Date: 07/08/18 Location: [facility] Sex: F C Admitted: 07/07/18 Test Reason [...] Abnormal ECG Confirmed by JAIME EL, JASSI ([id number]), scientific publications editor DAMIAN MCCRACKEN ([id number]) on 07/14/2018 4:13:10 PM Referred By: CADENCE Confirmed By:JASSI LORD MD 07/14/18 1613 Date Jassi Lord MD CC: HIMANSHU Chapa; Dirk Kowalski DO; Claudia Cruz MD Signed 12 LEAD ELECTROCARDIOGRAM Observed: 07/12/2018 Status: F Source: INGE 12:47 PM [facility] REPOSITORY [facility] Cardiovascular Services [address] [place] [address] 12 Lead EKG 07/07/18 1610 MR#: [id number] Acct: [id number] Name: LUIS FERNANDOALEJANDRINANO COTTON Rep #: [id number] : 1940 78 From: Nicholas Marquez MD Attending Dr: Dirk Kowalski DO Status: DIS DEISY Ordering Dr: Claudia Cruz MD Date: 07/07/18 Location: [facility] Sex: F C Admitted: 07/07/18 Test Reason [...] IS UNCONFIRMED Confirmed by NICHOLAS MARQUEZ ([id number]), scientific publications editor DAMIAN MCCRACKEN ([id number]) on 07/12/2018 12:47:18 PM Referred By: CADENCE Confirmed By:NICHOLAS MARQUEZ 07/12/18 1247 Date Nicholas Marquez MD CC: WATCH ASSEMBLY INSPECTORKristopher Chapa; Dirk Kowalski DO; Claudia Cruz MD Signed 12 LEAD ELECTROCARDIOGRAM Observed: 07/12/2018 Status: F Source: COLEMAN 8:58 AM [facility] REPOSITORY [facility] Cardiovascular Services [address] [place] [address] 12 Lead EKG 07/07/18 1451 MR#: [id number] Acct: [id number] Name: NO MUNIZ Rep #: [id number] : 1940 78 From: Nicholas Marquez MD Attending Dr: Dirk Kowalski DO Status: DIS DEISY Ordering Dr: Tello Valdez MD Date: 07/07/18 Location: [facility] Sex: F C Admitted: 07/07/18 Test Reason [...] Abnormal ECG Confirmed by NICHOLAS MARQUEZ ([id number]), scientific publications editor DAMIAN MCCRACKEN ([id number]) on 07/12/2018 8:58:41 AM Referred By: PANCHO Confirmed By:NICHOLAS MARQUEZ 07/12/1858 Date Nicholas Marquez MD CC: HIMANSHU Chapa; Dirk Kowalski DO; Tello Valdez MD Signed 12 LEAD ELECTROCARDIOGRAM Observed: 07/12/2018 Status: F Source: INGE 8:57 AM [facility] REPOSITORY [facility] Cardi[facility] Services [address] [place] [address] 12 Lead EKG 07/07/18 1310 MR#: [id number] Acct: [id number] Name: NO MUNIZ Rep #: [id number] : 1940 78 From: Nicholas Marquez MD Attending Dr: Dirk Kowalski DO Status: DIS DEISY Ordering Dr: Tello Valdez MD Date: 07/07/18 Location: [facility] Sex: F C Admitted: 07/07/18 Test Reason [...] Abnormal ECG Confirmed by NICHOLAS MARQUEZ ([id number]), scientific publications editor DAMIAN MCCRACKEN ([id number]) on 07/12/2018 8:57:16 AM Referred By: PANCHO Confirmed By:NICHOLAS MARQUEZ 07/12/18 0857 Date Nicholas Marquez MD CC: HIMANSHU Chapa; Dirk Kowalski DO; Tello Valdez MD Signed CBC-COMPLETE BLOOD CNT Collected: 07/12/2018 Status: F Source: INGE NO DIFF 7:00 AM [facility] REPOSITORY Order Comment: 303-2 TYPE CODE TESTS [...] MPV 12.1 Performed By: #### L100.0500 #### [facility] [address] [place], [address] BASIC METABOLIC Collected: 07/12/2018 Status: F Source: INGE PROFILE (BMP) 7:00 AM [facility] REPOSITORY Order Comment: 303-2 TYPE CODE TESTS [...] GAP 4 Performed By: #### L500.2500 #### [facility] [address] [place], [address] HEMOGLOBIN A1C Collected: 07/12/2018 Status: F Source: COLEMAN 5:00 AM [facility] REPOSITORY Order Comment: 1030:H47 TYPE CODE TESTS RESULT OUT OF RANGE REFERENCE UNITS LAB L501.9985 4.2-6.3 % Normal HGB A1C 6.3 Performed By: #### L501.9985 #### [facility] [address] [place], [address] DISCHARGE SUMMARY Observed: 07/11/2018 Status: F Source: COLEMAN 4:53 PM [facility] REPOSITORY [facility] Medical Records Department [address] [place] [address] Discharge Summary 07/11/18 1107 MR#: [id number] Acct: [id number] Name: NO MUNIZ Rep #: [id number] : 1940 78 From: Shavon DOWNS PCP: HIMANSHU Gill Status: DIS DEISY Y Location: [place] [address] <Shavon Bradley - Last Filed: 07/11/18 11:18> [...] Jens Thurman MD at 13:54 EDT Tel [phone], Service support , Shoulder X-Ray 07/07/18 17:00 IMPRESSION: 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 Electronically Signed: Luisito Harper DO at 17:17 EDT Tel [phone], Service support , Operations: None Procedures: Stress [...] Primary Care Physician in: 1 Week Disposition: [facility] facility Minutes spent on discharge:: 35 Patient [...] symptoms and was seeing a [facility]. Patient will need to follow-up with neurosurgery [...] Discharge Activity: Return to Normal Activity Disposition: Prison facility Minutes spent on discharge:: 35 Patient Condition:: Stable Meaningful Use Info Meaningful Use Diagnoses (Choose all that apply): None applicable Code Visit Inpatient E AND M: 20785 Disch Hosp 07/11/18 1119 <Electronically signed by Shavon DOWNS> Date Shavon HOLLANDC 07/11/18 1653<Electronically signed by Dirk Kowalski DO> Cosigner Signature (if applicable): Date Dirk Kowalski DO CC: HIMANSHU Bradley; HIMANSHU Chapa; Dirk Kowalski DO Signed TRANSFER TO [facility] Observed: 07/11/2018 Status: F Source: [facility] 1:50 PM [facility] REPOSITORY [facility] Medical Records Department [address] [place], [place] [address] [address] Transfer to [facility] Care MR#: [id number] Acct: [id number] Name: NO MUNIZ Rep #: [id number] : 1940 78 From: Shavon HOLLANDC PCP: HIMANSHU Gill Status: ADM DEISY NO MUNIZ (Patient) (Health Ins. Claim No.) (Day of Discharge to Facility) Certification of patient admission REQUIRED AT TIME OF ADMISSION. I CERTIFY THAT POST-HOSPITAL ECF SERVICES ARE REQUIRED TO BE GIVEN ON AN IN-PATIENT BASIS BECAUSE OF THE ABOVE NAMED PATIENT'S NEED FOR RETIREMENT CARE ON A CONTINUING BASIS FOR THE CONDITION(S) FOR WHICH HE/SHE WAS RECEIVING IN-PATIENT HOSPITAL SERVICES PRIOR TO HIS/HER TRANSFER TO THE F. 07/11/18 3260 <Electronically signed by Dirk Kowalski DO> Date: [...] Cosigner Signature: Date Dirk Kowalski DO CC: WATCH ASSEMBLY INSPECTOR-Loli Chapa BEDSIDE GLUCOSE Collected: 07/11/2018 Status: F Source: INGE 10:59 AM [facility] REPOSITORY TYPE CODE TESTS RESULT OUT OF REFERENCE UNITS RANGE LAB L501.080 70-110 mg/dL High BEDSIDE GLU 140 Result Comment: MANAGEMENT OF PATIENT CARE PER NURSING PROTOCOL Performed By: #### L501.080 #### [facility] Point of Care [employer] [place] [address] BEDSIDE GLUCOSE Collected: 07/11/2018 Status: F Source: INGE 6:45 AM [facility] REPOSITORY TYPE CODE TESTS RESULT OUT OF RANGE REFERENCE UNITS LAB L501.080 70-110 mg/dL Normal BEDSIDE GLU 93 Result Comment: MANAGEMENT OF PATIENT CARE PER NURSING PROTOCOL Performed By: #### L501.080 #### [facility] Point of Care [address] [place] [address] BASIC METABOLIC Collected: 07/11/2018 Status: F Source: INGE PROFILE (BMP) 5:35 AM [facility] REPOSITORY TYPE CODE TESTS RESULT OUT OF [...] Performed By: #### L500.2500, L501.2300, L501.5200 #### [facility] [address] [place], [address] PHOSPHORUS Collected: 07/11/2018 Status: F Source: INGE 5:35 AM [facility] REPOSITORY TYPE CODE TESTS RESULT OUT OF RANGE REFERENCE UNITS LAB L501.2300 2.5-4.9 mg/dL Normal PHOS 4.4 Performed By: #### L500.2500, L501.2300, L501.5200 #### [facility] [address] [place], [place], [address] MAGNESIUM Collected: 07/11/2018 Status: F Source: COLEMAN 5:35 AM [facility] REPOSITORY TYPE CODE TESTS RESULT OUT OF RANGE REFERENCE UNITS LAB L501.5200 1.6-2.6 mg/dL Normal MG 2.2 Performed By: #### L500.2500, L501.2300, L501.5200 #### [facility] [address] [place], [address] CBC W/DIFF, AUTOMATED Collected: 07/11/2018 Status: F Source: COLEMAN 5:35 AM [facility] REPOSITORY TYPE CODE TESTS RESULT OUT OF [...] Lymph 2.84 Performed By: #### L100.0100 #### [facility] [address] [place], [address] BEDSIDE GLUCOSE Collected: 07/10/2018 Status: F Source: INGE 10:08 PM [facility] REPOSITORY TYPE CODE TESTS RESULT OUT OF REFERENCE UNITS RANGE LAB L501.080 70-110 mg/dL High BEDSIDE GLU 168 Result Comment: MANAGEMENT OF PATIENT CARE PER NURSING PROTOCOL Performed By: #### L501.080 #### [facility] Point of Care [address] [place] [address] BEDSIDE GLUCOSE Collected: 07/10/2018 Status: F Source: INGE 4:59 PM [facility] REPOSITORY TYPE CODE TESTS RESULT OUT OF REFERENCE UNITS RANGE LAB L501.080 70-110 mg/dL High BEDSIDE GLU 183 Result Comment: MANAGEMENT OF PATIENT CARE PER NURSING PROTOCOL Performed By: #### L501.080 #### [facility] Point of Care [address] [place] [address] BEDSIDE GLUCOSE Collected: 07/10/2018 Status: F Source: INGE 11:28 AM [facility] REPOSITORY TYPE CODE TESTS RESULT OUT OF RANGE REFERENCE UNITS LAB L501.080 70-110 mg/dL Normal BEDSIDE GLU 75 Result Comment: MANAGEMENT OF PATIENT CARE PER NURSING PROTOCOL Performed By: #### L501.080 #### [facility] Point of Care [address] [place] [address] BEDSIDE GLUCOSE Collected: 07/10/2018 Status: F Source: INGE 6:48 AM [facility] REPOSITORY TYPE CODE TESTS RESULT OUT OF REFERENCE UNITS RANGE LAB L501.080 70-110 mg/dL High BEDSIDE GLU 143 Result Comment: MANAGEMENT OF PATIENT CARE PER NURSING PROTOCOL Performed By: #### L501.080 #### [facility] Point of Care [address] [place] [address] BEDSIDE GLUCOSE Collected: 07/09/2018 Status: F Source: INGE 9:12 PM [facility] REPOSITORY TYPE CODE TESTS RESULT OUT OF REFERENCE UNITS RANGE LAB L501.080 70-110 mg/dL High BEDSIDE GLU 145 Result Comment: MANAGEMENT OF PATIENT CARE PER NURSING PROTOCOL Performed By: #### L501.080 #### [facility] Point of Care [address] [place] [address] BEDSIDE GLUCOSE Collected: 07/09/2018 Status: F Source: NIGE 4:41 PM [facility] REPOSITORY TYPE CODE TESTS RESULT OUT OF REFERENCE UNITS RANGE LAB L501.080 70-110 mg/dL High BEDSIDE GLU 125 Result Comment: MANAGEMENT OF PATIENT CARE PER NURSING PROTOCOL Performed By: #### L501.080 #### [facility] Point of Care [address] [place] [address] BEDSIDE GLUCOSE Collected: 07/09/2018 Status: F Source: INGE 11:31 AM [facility] REPOSITORY TYPE CODE TESTS RESULT OUT OF REFERENCE UNITS RANGE LAB L501.080 70-110 mg/dL High BEDSIDE GLU 121 Result Comment: MANAGEMENT OF PATIENT CARE PER NURSING PROTOCOL Performed By: #### L501.080 #### [facility] Point of Care [address] [place] [address] BEDSIDE GLUCOSE Collected: 07/09/2018 Status: F Source: INGE 6:51 AM [facility] REPOSITORY TYPE CODE TESTS RESULT OUT OF RANGE REFERENCE UNITS LAB L501.080 70-110 mg/dL Normal BEDSIDE GLU 82 Result Comment: MANAGEMENT OF PATIENT CARE PER NURSING PROTOCOL Performed By: #### L501.080 #### [facility] Point of Care [address] [place] [address] CBC W/DIFF, AUTOMATED Collected: 07/09/2018 Status: F Source: INGE 6:25 AM [facility] REPOSITORY TYPE CODE TESTS RESULT OUT OF [...] Lymph 2.26 Performed By: #### L100.0100 #### [facility] [place], [address] COMPREHENSIVE METABOLIC Collected: 07/09/2018 Status: F Source: INGE YOON 6:25 AM [facility] REPOSITORY TYPE CODE TESTS RESULT OUT OF [...] Performed By: #### L500.4050, L501.2300, L501.5200 #### [facility] [address] [place], [address] PHOSPHORUS Collected: 07/09/2018 Status: F Source: COLEMAN 6:25 AM [facility] REPOSITORY TYPE CODE TESTS RESULT OUT OF RANGE REFERENCE UNITS LAB L501.2300 2.5-4.9 mg/dL High PHOS 5.1 Performed By: #### L500.4050, L501.2300, L501.5200 #### [facility] [address] [place], [address] MAGNESIUM Collected: 07/09/2018 Status: F Source: INGE 6:25 AM [facility] REPOSITORY TYPE CODE TESTS RESULT OUT OF RANGE REFERENCE UNITS LAB L501.5200 1.6-2.6 mg/dL Normal MG 2.2 Performed By: #### L500.4050, L501.2300, L501.5200 #### [facility] [address] [place], [address] BEDSIDE GLUCOSE Collected: 07/08/2018 Status: F Source: INGE 9:49 PM [facility] REPOSITORY TYPE CODE TESTS RESULT OUT OF REFERENCE UNITS RANGE LAB L501.080 70-110 mg/dL High BEDSIDE GLU 164 Result Comment: MANAGEMENT OF PATIENT CARE PER NURSING PROTOCOL Performed By: #### L501.080 #### [facility] Point of Care [address] [place] [address] BEDSIDE GLUCOSE Collected: 07/08/2018 Status: F Source: INGE 4:33 PM [facility] REPOSITORY TYPE CODE TESTS RESULT OUT OF REFERENCE UNITS RANGE LAB L501.080 70-110 mg/dL High BEDSIDE GLU 179 Result Comment: MANAGEMENT OF PATIENT CARE PER NURSING PROTOCOL Performed By: #### L501.080 #### [facility] Point of Care [address] [place] [address] BEDSIDE GLUCOSE Collected: 07/08/2018 Status: F Source: INGE 11:25 AM [facility] REPOSITORY TYPE CODE TESTS RESULT OUT OF REFERENCE UNITS RANGE LAB L501.080 70-110 mg/dL High BEDSIDE GLU 116 Result Comment: MANAGEMENT OF PATIENT CARE PER NURSING PROTOCOL Performed By: #### L501.080 #### [facility] Point of Care [address] [place] [address] STRESS REPORT Observed: 07/08/2018 Status: F Source: INGE 9:42 AM [facility] REPOSITORY [facility] Cardiovascular Services [address] [place] [address] MR#: [id number] Acct: [id number] Name: NO MUNIZ Rep #: [id number] : 1940 78 From: Jassi Lord MD Primary Care: Latia Chapa, WATCH ASSEMBLY INSPECTOR-C Status: ADM DEISY Ordering Dr: Sex: F [...] 60 %. This note was generated with Returbo dictation software. It may contain incorrect words, spelling, and punctuation that were not noted in checking the note before signing. 07/08/18941 <Electronically signed by Jassi Lord MD> Date Jassi Lord MD CC: HIMANSHU Chapa; Jassi Easley MD Date Dictated: 07/08/18938 Date Transcribed: 07/08/18938 Hardware Engineering Manager: PM Signed BEDSIDE GLUCOSE Collected: 07/08/2018 Status: F Source: INGE 5:36 AM [facility] REPOSITORY TYPE CODE TESTS RESULT OUT OF RANGE REFERENCE UNITS LAB L501.080 70-110 mg/dL Normal BEDSIDE GLU 90 Result Comment: MANAGEMENT OF PATIENT CARE PER NURSING PROTOCOL Performed By: #### L501.080 #### [facility] [place] [address] BASIC METABOLIC Collected: 07/08/2018 Status: F Source: INGE PROFILE (BMP) 5:28 AM [facility] REPOSITORY TYPE CODE TESTS RESULT OUT OF [...] GAP 6 Performed By: #### L500.2500 #### [facility] [address] [place], [address] CBC W/DIFF, AUTOMATED Collected: 07/08/2018 Status: F Source: COLEMAN 5:28 AM [facility] REPOSITORY TYPE CODE TESTS RESULT OUT OF [...] Lymph 1.88 Performed By: #### L100.0100 #### [facility] [address] [facility] [address] [facility] [address] [facility] [address] PROTHROMBIN TIME W/INR Collected: 07/08/2018 Status: F Source: COLEMAN 5:28 AM [facility] REPOSITORY TYPE CODE TESTS RESULT OUT OF RANGE REFERENCE UNITS LAB L300.4150 11.7-14.9 SECONDS High PROTIME 20.4 LAB L300.4200 Normal INR 1.7 Performed By: #### L300.3900, L300.4310 #### [facility] [address] [facility] [address] PARTIAL THROMBOPLAST Collected: 07/08/2018 Status: F Source: COLEMAN TIME 5:28 AM [facility] REPOSITORY TYPE CODE TESTS RESULT OUT OF REFERENCE UNITS RANGE LAB L300.4310 24.1-36.2 Seconds High PTT 38.0 Performed By: #### L300.3900, L300.4310 #### [facility] [place], [address] BEDSIDE GLUCOSE Collected: 07/07/2018 Status: F Source: COLEMAN 10:21 PM [facility] REPOSITORY TYPE CODE TESTS RESULT OUT OF RANGE REFERENCE UNITS LAB L501.080 70-110 mg/dL Normal BEDSIDE GLU 103 Result Comment: MANAGEMENT OF PATIENT CARE PER NURSING PROTOCOL Performed By: #### L501.080 #### [facility] Point of Care [address] [place] [address] HISTORY AND PHYSICAL Observed: 07/07/2018 Status: F Source: INGE EXAM 8:54 PM [facility] REPOSITORY [facility] Medical Records Department [address] [place], [place] [address] [place] [address] History and Physical 07/07/18 1544 MR#: [id number] Acct: [id number] Name: NO MUNIZ Rep #: [id number] : 1940 78 From: Claudia Cruz MD PCP: Latia Chapa, WATCH ASSEMBLY INSPECTOR-C Status: ADM DEISY Y Location: [place] [address] Problem List (1) Chest pain Status: Acute [...] surgery Psychiatric History: No pertinent psych hx SAFETY EQUIPMENT TESTING SPECIALIST History: No pertinent SAFETY EQUIPMENT TESTING SPECIALIST history Lives: With Family Smoking Status: Never [...] mins. Code Visit OBSV E AND M: 53761 Initial observation care L3 Procedures: 18080 Advncd Care Plan 30 Min 07/07/182053 <Electronically signed by Claudia Cruz MD> Date Claudia Cruz MD Cosigner Signature: Date (if applicable) CC: WATCH ASSEMBLY INSPECTOR-C Latia Chapa; Claudia Cruz MD Signed TROPONIN-I Collected: 07/07/2018 Status: F Source: INGE 7:11 PM [facility] REPOSITORY Order Comment: 'TROP' Serial specimen #1, #2 or #3: 3 TYPE CODE TESTS RESULT OUT OF RANGE REFERENCE UNITS LAB L501.4010 <0.045 ng/mL Normal < 0.015 TROPONIN-I Result Comment: TROPONIN-I EXPECTED VALUES <0.045 Negative 0.045 - 0.590 Consistent with Cardiac Damage > OR = 0.600 Critical Value Not every elevated troponin is indicative of MN. These values should be used with clinical judgement in examining the patient's clinical picture for diagnosis. To establish a diagnosis of MN versus myocardial injury, there must be a demonstrated rise and/or fall in the troponin values, in addition to ischemic symptoms, EKG changes, new regional wall motion abnormality, and/or angiographical evidence. PLEASE NOTE: REFERENCE RANGES EDITED 18 Performed By: #### L501.4010 #### [facility] [address] [place], [place], [address] BEDSIDE GLUCOSE Collected: 07/07/2018 Status: F Source: COLEMAN 4:47 PM [facility] REPOSITORY TYPE CODE TESTS RESULT OUT OF RANGE REFERENCE UNITS LAB L501.080 70-110 mg/dL Normal BEDSIDE GLU 89 Result Comment: MANAGEMENT OF PATIENT CARE PER NURSING PROTOCOL Performed By: #### L501.080 #### [facility] Point of Care [address] [place], [place] [address] TROPONIN-I Collected: 07/07/2018 Status: F Source: COLEMAN 4:23 PM [facility] REPOSITORY Order Comment: 'TROP' Serial specimen #1, #2 or #3: 2 TYPE CODE TESTS RESULT OUT OF RANGE REFERENCE UNITS LAB L501.4010 <0.045 ng/mL Normal < 0.015 TROPONIN-I Result Comment: TROPONIN-I EXPECTED VALUES <0.045 Negative 0.045 - 0.590 Consistent with Cardiac Damage > OR = 0.600 Critical Value Not every elevated troponin is indicative of MN. These values should be used with clinical judgement in examining the patient's clinical picture for diagnosis. To establish a diagnosis of MN versus myocardial injury, there must be a demonstrated rise and/or fall in the troponin values, in addition to ischemic symptoms, EKG changes, new regional wall motion abnormality, and/or angiographical evidence. PLEASE NOTE: REFERENCE RANGES EDITED 18 Performed By: #### L501.4010 #### [facility] [address], [address] SHOULDER MIN 2 VIEWS Observed: 07/07/2018 Status: F Source: COLEMAN 4:13 PM [facility] REPOSITORY [facility] Imaging Services [address] [place] [address] Shoulder min 2 Views MR#: [id number] Acct: [id number] Name: NO MUNIZ Rep #: [id number] : 1940 F 78 From: Luisito Harper DO PCP: HIMANSHU Gill Status: ADM DEISY Study: Shoulder min 2 Views Date of Exam: 07/07/18 Exam# [id number] Ordering Dr: Claudia Cruz MD STUDY: X-RAY [...] Luisito Harper DO at 17:17 EDT Tel [phone], Service support , CC: WATCH ASSEMBLY INSPECTOR-C Latia Chapa; Claudia Cruz MD Hardware Engineering Manager: Signed EMERGENCY DEPARTMENT Observed: 07/07/2018 Status: F Source: COLEMAN SUMMARY 3:04 PM [facility] REPOSITORY [facility] Medical Records Department [address] [place] [address] Emergency Department Summary 07/07/18 1500 MR#: [id number] Acct: [id number] Name: NO MUNIZ Rep #: [id number] : 1940 78 From: Tello Valdez MD [...] vessel bypass surgery 10 years ago at [facility]. She has history of type 2 [...] 64 with a left bundle branch block. DC interval is normal. There is no acute [...] of hypercholesterolemia This note was generated with Returbo dictation software. It may contain incorrect words, [...] your Primary Care Provider. Call [facility] ([phone]) or report to the closest Emergency Room. Call 911 if necessary. 07/07/18 1504 <Electronically signed by Tello Valdez MD> Date Tello Valdez MD Cosigner Signature (If Indicated): Date CC: WATCH ASSEMBLY INSPECTORKristopher Chapa CHEST 1 VIEW Observed: 07/07/2018 Status: F Source: COLEMAN (PORTABLE) 1:27 PM [facility] REPOSITORY [facility] Imaging Services [address] [place] [address] Chest 1 View (Portable) MR#: [id number] Acct: [id number] Name: NO MUNIZ Rep #: [id number] : 1940 F 78 From: Jens Thurman MD PCP: HIMANSHU Gill Status: PRE ER Study: Chest 1 View (Portable) Date of Exam: 07/07/18 Exam# [id number] Ordering Dr: Tello Valdez MD STUDY: X-RAY [...] Jens Thurman MD at 13:54 EDT Tel [phone], Service support , CC: HIMANSHU Chapa; Tello Valdez MD Hardware Engineering Manager: Signed CBC W/DIFF, AUTOMATED Collected: 07/07/2018 Status: F Source: INGE 1:14 PM [facility] REPOSITORY TYPE CODE TESTS RESULT OUT OF [...] Lymph 2.52 Performed By: #### L100.0100 #### [facility] [address] [place], [place] [address] [place], [place], [address] BASIC METABOLIC Collected: 07/07/2018 Status: F Source: COLEMAN PROFILE (BMP) 1:14 PM [facility] REPOSITORY TYPE CODE TESTS RESULT OUT OF [...] 9 Performed By: #### L500.2500, L501.4010 #### [facility] [address] [place], [address] TROPONIN-I Collected: 07/07/2018 Status: F Source: COLEMAN 1:14 PM [facility] REPOSITORY TYPE CODE TESTS RESULT OUT OF RANGE REFERENCE UNITS LAB L501.4010 <0.045 ng/mL Normal < 0.015 TROPONIN-I Result Comment: TROPONIN-I EXPECTED VALUES <0.045 Negative 0.045 - 0.590 Consistent with Cardiac Damage > OR = 0.600 Critical Value Not every elevated troponin is indicative of MN. These values should be used with clinical judgement in examining the patient's clinical picture for diagnosis. To establish a diagnosis of MN versus myocardial injury, there must be a demonstrated rise and/or fall in the troponin values, in addition to ischemic symptoms, EKG changes, new regional wall motion abnormality, and/or angiographical evidence. PLEASE NOTE: REFERENCE RANGES EDITED 18 Performed By: #### L500.2500, L501.4010 #### [facility] [address] [place], [address] 12 LEAD ELECTROCARDIOGRAM Observed: 05/27/2018 Status: F Source: COLEMAN 1:16 PM [facility] REPOSITORY [facility] Cardiovascular Services [address] [place] [address] 12 Lead EKG 05/24/18 1722 MR#: [id number] Acct: [id number] Name: NO MUNIZ Rep #: [id number] : 1940 78 From: Shan Henry MD [...] ECG Confirmed by CARL EL, SHAN ([id number]), scientific publications editor DAMIAN MCCRACKEN ([id number]) on 05/27/2018 1:16:14 PM Referred By: VIOLET Confirmed By:SHAN HENRY MD 05/27/18 1316 Date Shan Henry MD CC: WATCH ASSEMBLY INSPECTOR-C Latia Chapa; Belgica Mtz MD Signed CMP Collected: 05/26/2018 Status: F Source: [facility] 9:40 AM [facility] REPOSITORY TYPE CODE TESTS [...] #### CMP, TSH, GFR, FT4, VIDH #### [address] [address] #### CBC, ADIFF, ANEU #### [place] [address] [place], [place] [address] TSH Collected: 05/26/2018 Status: F Source: [facility] 9:40 AM [facility] REPOSITORY TYPE CODE TESTS RESULT OUT OF RANGE REFERENCE UNITS LAB TSH(LOINC) 0.36-3.74 mcIU/mL TSH 2.03 Performed By: #### CMP, TSH, GFR, FT4, VIDH #### [address] [address] #### CBC, ADIFF, ANEU #### [place] [address] [place], [place] [address] .GFR Collected: 05/26/2018 Status: F Source: [facility] 9:40 AM [facility] REPOSITORY TYPE CODE TESTS RESULT OUT OF REFERENCE UNITS RANGE LAB GFRAA(LOINC ml/min/1.73 ) sqm GFR 46 Barbadian Result Comment: GFR Population mean for , [...] #### CMP, TSH, GFR, FT4, VIDH #### [place] [address] #### CBC, ADIFF, ANEU #### [place] [address] [place], [place] [address] FT4 Collected: 05/26/2018 Status: F Source: [facility] 9:40 AM [facility] REPOSITORY TYPE CODE TESTS RESULT OUT OF RANGE REFERENCE UNITS LAB FT4(LOINC) 0.76-1.46 ng/dL Free T4 0.99 Performed By: #### CMP, TSH, GFR, FT4, VIDH #### [place] [address] #### CBC, ADIFF, ANEU #### [place] [address] [place], [place] [address] CBC Collected: 05/26/2018 Status: F Source: [facility] 9:40 AM [facility] REPOSITORY TYPE CODE TESTS [...] #### CMP, TSH, GFR, FT4, VIDH #### [place] [address] #### CBC, ADIFF, ANEU #### [address] [address] .AUTO DIFF Collected: 05/26/2018 Status: F Source: [facility] 9:40 AM [facility] REPOSITORY TYPE CODE TESTS RESULT OUT OF [...] #### CMP, TSH, GFR, FT4, VIDH #### [place] [address] #### CBC, ADIFF, ANEU #### [address] [address] .NEUABS Collected: 05/26/2018 Status: F Source: [facility] 9:40 AM [facility] REPOSITORY TYPE CODE TESTS RESULT OUT OF REFERENCE UNITS RANGE LAB ANEU(LOINC) 2.85-6.16 10 3/mcL High Neutrophil, 8.30 Absolute Performed By: #### CMP, TSH, GFR, FT4, VIDH #### [place] [address] #### CBC, ADIFF, ANEU #### [facility] [address] [place], [place] [address] VIDH Collected: 05/26/2018 Status: F Source: [facility] 9:40 AM [facility] REPOSITORY TYPE CODE TESTS RESULT OUT OF RANGE REFERENCE UNITS LAB VIDH(LOINC) ng/mL Vit. D 73 25-Hydroxy Result Comment: Interpretive Values Based on Total 25(OH)D: Severe Deficiency <20 ng/mL Mild to Moderate Deficiency 20-30 ng/mL Optimum Levels 30-100 ng/mL Toxicity Possible >100 ng/mL Performed By: #### CMP, TSH, GFR, FT4, VIDH #### [facility] [address] [place] [address] #### CBC, ADIFF, ANEU #### [facility] [address] [place], [place] [address] EMERGENCY DEPARTMENT Observed: 05/25/2018 Status: F Source: [facility] 12:19 AM [facility] REPOSITORY [facility] Medical Records Department [address] [place] [address] Emergency Department Summary 05/24/18 1523 MR#: [id number] Acct: [id number] Name: NO MUNIZ Rep #: [id number] : 1940 78 From: Belgica Mtz MD [...] extremity contusion This note was generated with Returbo dictation software. It may contain incorrect words, spelling, and punctuation that were not noted in review of the chart prior to signing ED Disposition - Plan for ED Patient: Chief Complaint: Fall Referrals: Latia Chapa, WATCH ASSEMBLY INSPECTOR-C [Primary Care Provider] - What to do if you have Problems For any increased pain, shortness of breath, bleeding, nausea or vomiting, chest pain, or any unexpected problems, contact your Primary Care Provider. Call [facility] ([phone]) or report to the closest Emergency Room. Call 911 if necessary. 05/25/18 0019 <Electronically signed by Belgica Mtz MD> Date Belgica Mtz MD Cosigner Signature (If Indicated): Date CC: HIMANSHU Chapa DISCHARGE INSTRUCTION Observed: 05/24/2018 Status: F Source: [facility] 8:00 PM [facility] REPOSITORY [facility] Medical Records Department [address] [place] [address] Discharge Instruction 05/24/181957 MR#: [id number] Acct: [id number] Name: NO MUNIZ Rep #: [id number] : 1940 78 From: Belgica Mtz MD [...] your Primary Care Provider. Call [facility] ([phone]) or report to the closest Emergency Room. Call 911 if necessary. 05/24/181999 <Electronically signed by Belgica Mtz MD> Date Belgica Mtz MD Cosigner Signature (If Indicated): Date CC: HIMANSHU Chapa URINALYSIS, COMPLETE Collected: 05/24/2018 Status: F Source: [facility] 6:11 PM [facility] REPOSITORY Order Comment: Order Date: 09/11/18 How [...] URINE SEEN Performed By: #### L400.0001 #### [facility] [address] [place], [address] CBC W/DIFF, AUTOMATED Collected: 05/24/2018 Status: F Source: [facility] 5:58 PM [facility] REPOSITORY TYPE CODE TESTS RESULT OUT OF [...] Lymph 2.58 Performed By: #### L100.0100 #### [facility] [address] [place], [address] BASIC METABOLIC Collected: 05/24/2018 Status: F Source: [facility] PROFILE ([facility]) 5:58 PM [facility] REPOSITORY TYPE CODE TESTS RESULT OUT OF [...] GAP 8 Performed By: #### L500.2500 #### [facility] [address] [facility] [place], [address] BRAIN/HEAD WITHOUT Observed: 05/24/2018 Status: F Source: [facility] CONTRAST 3:21 PM [facility] REPOSITORY [facility] Imaging Services [address] [place] [address] Brain/Head without Contrast MR#: [id number] Acct: [id number] Name: NO MUNIZ John Rep #: [id number] : 1940 F 78 From: Jens Thurman MD PCP: Latia Chapa, WATCH ASSEMBLY INSPECTOR-C Status: REG ER Study: Brain/Head without Contrast Date of Exam: 05/24/18 Exam# [id number] Ordering Dr: Belgica Mtz MD STUDY: CT [...] Jens Thurman MD at 16:01 EDT Tel [phone], Service support , CC: HIMANSHU Chapa; Belgica Mtz MD Hardware Engineering Manager: Signed SPINE CERVICAL Observed: 05/24/2018 Status: F Source: [facility] WITHOUT CONTRAS 3:21 PM [facility] REPOSITORY [facility] Imaging Services [address] [place] [address] [place] [address] Spine Cervical without Contras MR#: [id number] Acct: [id number] Name: NO MUNIZ Rep #: [id number] : 1940 F 78 From: Jens Thurman MD PCP: HIMANSHU Gill Status: REG ER Study: Spine Cervical without Contras Date of Exam: 05/24/18 Exam# [id number] Ordering Dr: Belgica Mtz MD STUDY: CT [...] Jens Thurman MD at 16:04 EDT Tel [phone], Service support , CC: JESU-C Latia Chapa; Belgica Mtz MD Hardware Engineering Manager: Signed KNEE 4 OR MORE Observed: 05/24/2018 Status: F Source: [facility] VIEWS 3:21 PM [facility] REPOSITORY [facility] Imaging Services [address] [place] [address] Knee 4 or More Views MR#: [id number] Acct: [id number] Name: NO MUNIZ Rep #: [id number] : 1940 F 78 From: Yasir Dawson MD PCP: Latia Chapa, JESU-C Status: REG ER Study: Knee 4 or More Views Date of Exam: 05/24/18 Exam# [id number] Ordering Dr: Belgica Mtz MD STUDY: X-RAY [...] 16:42 EDT , Service support , CC: WATCH ASSEMBLY INSPECTOR-Loli Chapa; Belgica Mtz MD Hardware Engineering Manager: Signed HUMERUS MIN 2 VIEWS Observed: 05/24/2018 Status: F Source: [facility] 3:21 PM [facility] REPOSITORY [facility] Imaging Services [address] [place] [address] Humerus min 2 Views MR#: [id number] Acct: [id number] Name: NO MUNIZ Rep #: [id number] : 1940 F 78 From: Yasir Dawson MD PCP: HIMANSHU Gill Status: REG ER Study: Humerus min 2 Views Date of Exam: 05/24/18 Exam# [id number] Ordering Dr: Belgica Mtz MD STUDY: X-RAY [...] , CC: HIMANSHU Chapa; Belgica Mtz MD Hardware Engineering Manager: Signed CHEST PA AND LATERAL Observed: 05/24/2018 Status: F Source: INGE 3:21 PM [facility] REPOSITORY [facility] Imaging Services [address] [place] [address] Chest PA and Lateral MR#: [id number] Acct: [id number] Name: NO MUNIZ Rep #: [id number] : 1940 F 78 From: Yasir Dawson MD PCP: HIMANSHU Gill Status: REG ER Study: Chest PA and Lateral Date of Exam: 05/24/18 Exam# [id number] Ordering Dr: Belgica Mtz MD STUDY: X-RAY [...] , CC: HIMANSHU Chapa; Belgica Mtz MD Hardware Engineering Manager: Signed FOREARM 2 VIEWS Observed: 05/24/2018 Status: F Source: INGE 3:21 PM [facility] REPOSITORY [facility] Imaging Services [address] [place] [address] Forearm 2 Views MR#: [id number] Acct: [id number] Name: NO MUNIZ Rep #: [id number] : 1940 F 78 From: Yasir Dawson MD PCP: HIMANSHU Gill Status: REG ER Study: Forearm 2 Views Date of Exam: 05/24/18 Exam# [id number] Ordering Dr: Belgica Mtz MD STUDY: X-RAY [...] , CC: HIMANSHU Chapa; Belgica Mtz MD Hardware Engineering Manager: Signed 12 LEAD ELECTROCARDIOGRAM Observed: 04/25/2018 Status: F Source: INGE 3:25 PM [facility] REPOSITORY [facility] Cardiovascular Services [address] [place] [address] 12 Lead EKG 04/14/18 0724 MR#: [id number] Acct: [id number] Name: NO MUNIZ Rep #: [id number] : 1940 78 From: Shan Henry MD [...] ECG Confirmed by SHAN HENRY MD ([id number]), scientific publications editor DAMIAN MCCRCAKEN (56) on 04/25/2018 3:25:29 PM Referred By: BABS Confirmed By:SHAN HENRY MD 04/25/18 1525 Date Shan Henry MD CC: WATCH ASSEMBLY INSPECTOR-C Latia Chapa; Anant Rodriguez; Blas Angeles M.D. Signed DISCHARGE SUMMARY Observed: 04/19/2018 Status: F Source: [facility] 2:26 PM [facility] REPOSITORY [facility] Medical Records Department [address] [place] [address] Discharge Summary 04/19/18 1359 MR#: [id number] Acct: [id number] Name: NO MUNIZ Rep #: [id number] : 1940 78 From: Anant Rodriguez MD PCP: HIMANSHU Gill Status: ADM DEISY Y Location: MS3 FC923-4 Discharge Date and Diagnosis Date of Admission: [...] Jens Thurman MD at 13:13 EDT Tel [phone], Service support , Chest CTA 04/13/18 13:51 IMPRESSION: Several small peripheral intraluminal filling defects involving pulmonary branches as described. Possible solid left renal mass. 7.8 mm x 4.9 mm noncalcified nodule in the right upper lobe adjacent to the right minor fissure. Enlarged right lobe of the thyroid. Electronically Signed: Jens Thurman MD at 14:29 EDT Tel [phone], Service support , Cervical Spine MRI 04/13/18 [...] to be stable to be discharged to care home facility. She continued to complain of neck [...] evaluate the patient and recommended placement to care home facility. Patient discharged to care home facility in a stable medical condition, discharged [...] Primary Care Physician in: 1-2 weeks. Disposition: Prison facility Minutes spent on discharge:: 32 Patient Condition:: Stable Medical Necessity - Tobacco Use Smoking Status: Never smoker Meaningful Use Info Meaningful Use Diagnoses (Choose all that apply): None applicable Code Visit Inpatient E AND M: 37868 Disch Hosp 04/19/18 1426 <Electronically signed by Anant Rodriguez MD> Date Anant Rodriguez MD Cosigner Signature (if applicable): Date CC: WATCH ASSEMBLY INSPECTOR-C Latia Chapa; Anant Rodriguez Signed BEDSIDE GLUCOSE Collected: 04/19/2018 Status: F Source: [facility] 12:01 PM [facility] REPOSITORY TYPE CODE TESTS RESULT OUT OF REFERENCE UNITS RANGE LAB L501.080 70-110 mg/dL High BEDSIDE GLU 213 Result Comment: MANAGEMENT OF PATIENT CARE PER NURSING PROTOCOL Performed By: #### L501.080 #### [facility] Point of Care [address] [place] [address]. [place] [address] TRANSFER TO EXTENDED Observed: 04/19/2018 Status: F Source: [facility] 9:43 AM [facility] REPOSITORY [facility] Medical Records Department [address] [place] [address] [place] [address] Transfer to [facility] Care MR#: [id number] Acct: [id number] Name: NO MUNIZ Rep #: [id number] : 1940 78 From: Anant Rodriguez MD PCP: HIMANSHU Gill Status: ADM DEISY NO MUNIZ (Patient) (Health Ins. Claim No.) (Day of Discharge to Facility) Certification of patient admission REQUIRED AT TIME OF ADMISSION. I CERTIFY THAT POST-HOSPITAL ECF SERVICES ARE REQUIRED TO BE GIVEN ON AN IN-PATIENT BASIS BECAUSE OF THE ABOVE NAMED PATIENT'S NEED FOR RETIREMENT CARE ON A CONTINUING BASIS FOR THE [...] Up Care Primary Care Physician: Latia Chapa, WATCH ASSEMBLY INSPECTOR-C [Primary Care Provider] - Please follow up with your Primary Care Physician in: 1-2 weeks. 04/19/18 0943 <Electronically signed by Anant Rodriguez MD> Date Anant Rodriguez MD CC: WATCH ASSEMBLY INSPECTOR-C Latia Olivaskeith GoldbergEduard Signed BEDSIDE GLUCOSE Collected: 04/19/2018 Status: F Source: INGE 6:09 AM [facility] REPOSITORY TYPE CODE TESTS RESULT OUT OF REFERENCE UNITS RANGE LAB L501.080 70-110 mg/dL High BEDSIDE GLU 163 Result Comment: MANAGEMENT OF PATIENT CARE PER NURSING PROTOCOL Performed By: #### L501.080 #### [facility] Point of Care [address] [place] [address] BEDSIDE GLUCOSE Collected: 04/18/2018 Status: F Source: INGE 10:08 PM [facility] REPOSITORY TYPE CODE TESTS RESULT OUT OF RANGE REFERENCE UNITS LAB L501.080 70-110 mg/dL Normal BEDSIDE GLU 98 Result Comment: MANAGEMENT OF PATIENT CARE PER NURSING PROTOCOL Performed By: #### L501.080 #### [facility] Point of Care [address] [place] [address] BEDSIDE GLUCOSE Collected: 04/18/2018 Status: F Source: INGE 5:03 PM [facility] REPOSITORY TYPE CODE TESTS RESULT OUT OF REFERENCE UNITS RANGE LAB L501.080 70-110 mg/dL High BEDSIDE GLU 194 Result Comment: MANAGEMENT OF PATIENT CARE PER NURSING PROTOCOL Performed By: #### L501.080 #### [facility] Point of Care [address] [place] [address] BEDSIDE GLUCOSE Collected: 04/18/2018 Status: F Source: [facility] 2:28 PM [facility] REPOSITORY TYPE CODE TESTS RESULT OUT OF REFERENCE UNITS RANGE LAB L501.080 70-110 mg/dL High BEDSIDE GLU 211 Result Comment: MANAGEMENT OF PATIENT CARE PER NURSING PROTOCOL Performed By: #### L501.080 #### [facility] Point of Care [address] [place] [address] 12 LEAD ELECTROCARDIOGRAM Observed: 04/18/2018 Status: F Source: INGE 1:42 PM [facility] REPOSITORY [facility] Cardiovascular Services [address] [place] [address] 12 Lead EKG 04/13/18 1321 MR#: [id number] Acct: [id number] Name: NO MUNIZ Rep #: [id number] : 1940 78 From: Jassi Lord MD [...] ECG Confirmed by JAIME EL, JASSI ([id number]), scientific publications editor DAMIAN MCCRACKEN (56) on 04/18/2018 1:41:44 PM Referred By: LIAM Confirmed By:JASSI LORD MD 04/18/18 1341 Date Jassi Lord MD CC: WATCH ASSEMBLY INSPECTOR-C Latai Chapa; Anant Rodriguez; Elin Barboza DO Signed BEDSIDE GLUCOSE Collected: 04/18/2018 Status: F Source: INGE 11:59 AM [facility] REPOSITORY TYPE CODE TESTS RESULT OUT OF RANGE REFERENCE UNITS LAB L501.080 70-110 mg/dL Normal BEDSIDE GLU 71 Result Comment: MANAGEMENT OF PATIENT CARE PER NURSING PROTOCOL Performed By: #### L501.080 #### [facility] Point of Care [address] [place], [place] [address] BEDSIDE GLUCOSE Collected: 04/18/2018 Status: F Source: INGE 6:52 AM [facility] REPOSITORY TYPE CODE TESTS RESULT OUT OF RANGE REFERENCE UNITS LAB L501.080 70-110 mg/dL Normal BEDSIDE GLU 100 Result Comment: MANAGEMENT OF PATIENT CARE PER NURSING PROTOCOL Performed By: #### L501.080 #### [facility] Point of Care [address] [place] [address] BEDSIDE GLUCOSE Collected: 04/17/2018 Status: F Source: INGE 10:44 PM [facility] REPOSITORY TYPE CODE TESTS RESULT OUT OF REFERENCE UNITS RANGE LAB L501.080 70-110 mg/dL High BEDSIDE GLU 148 Result Comment: MANAGEMENT OF PATIENT CARE PER NURSING PROTOCOL Performed By: #### L501.080 #### [facility] Point of Care [address] [place] [address] BEDSIDE GLUCOSE Collected: 04/17/2018 Status: F Source: INGE 4:20 PM [facility] REPOSITORY TYPE CODE TESTS RESULT OUT OF REFERENCE UNITS RANGE LAB L501.080 70-110 mg/dL High BEDSIDE GLU 146 Result Comment: MANAGEMENT OF PATIENT CARE PER NURSING PROTOCOL Performed By: #### L501.080 #### [facility] Point of Care [address] [place] [address] BEDSIDE GLUCOSE Collected: 04/17/2018 Status: F Source: INGE 11:16 AM [facility] REPOSITORY TYPE CODE TESTS RESULT OUT OF REFERENCE UNITS RANGE LAB L501.080 70-110 mg/dL High BEDSIDE GLU 212 Result Comment: MANAGEMENT OF PATIENT CARE PER NURSING PROTOCOL Performed By: #### L501.080 #### [facility] Point of Care [address] [place] [address] BEDSIDE GLUCOSE Collected: 04/17/2018 Status: F Source: INGE 7:40 AM [facility] REPOSITORY TYPE CODE TESTS RESULT OUT OF RANGE REFERENCE UNITS LAB L501.080 70-110 mg/dL Normal BEDSIDE GLU 101 Result Comment: MANAGEMENT OF PATIENT CARE PER NURSING PROTOCOL Performed By: #### L501.080 #### [facility] Point of Care [address] [place] [address] BEDSIDE GLUCOSE Collected: 04/17/2018 Status: F Source: INGE 3:55 AM [facility] REPOSITORY TYPE CODE TESTS RESULT OUT OF RANGE REFERENCE UNITS LAB L501.080 70-110 mg/dL Normal BEDSIDE GLU 100 Result Comment: MANAGEMENT OF PATIENT CARE PER NURSING PROTOCOL Performed By: #### L501.080 #### [facility] Point of Care [address] [place] [address] BEDSIDE GLUCOSE Collected: 04/16/2018 Status: F Source: INGE 9:06 PM [facility] REPOSITORY TYPE CODE TESTS RESULT OUT OF REFERENCE UNITS RANGE LAB L501.080 70-110 mg/dL High BEDSIDE GLU 154 Result Comment: MANAGEMENT OF PATIENT CARE PER NURSING PROTOCOL Performed By: #### L501.080 #### [facility] Point of Care [address] [place] [address] BEDSIDE GLUCOSE Collected: 04/16/2018 Status: F Source: INGE 4:50 PM [facility] REPOSITORY TYPE CODE TESTS RESULT OUT OF RANGE REFERENCE UNITS LAB L501.080 70-110 mg/dL Normal BEDSIDE GLU 99 Result Comment: MANAGEMENT OF PATIENT CARE PER NURSING PROTOCOL Performed By: #### L501.080 #### [facility] Point of Care [address] [place] [address] BEDSIDE GLUCOSE Collected: 04/16/2018 Status: F Source: INGE 11:33 AM [facility] REPOSITORY TYPE CODE TESTS RESULT OUT OF REFERENCE UNITS RANGE LAB L501.080 70-110 mg/dL High BEDSIDE GLU 169 Result Comment: MANAGEMENT OF PATIENT CARE PER NURSING PROTOCOL Performed By: #### L501.080 #### [facility] Point of Care [address] [place] [address] BEDSIDE GLUCOSE Collected: 04/16/2018 Status: F Source: INGE 8:12 AM [facility] REPOSITORY TYPE CODE TESTS RESULT OUT OF REFERENCE UNITS RANGE LAB L501.080 70-110 mg/dL High BEDSIDE GLU 129 Result Comment: MANAGEMENT OF PATIENT CARE PER NURSING PROTOCOL Performed By: #### L501.080 #### [facility] Point of Care [address] [place] [address] BEDSIDE GLUCOSE Collected: 04/15/2018 Status: F Source: INGE 10:06 PM [facility] REPOSITORY TYPE CODE TESTS RESULT OUT OF REFERENCE UNITS RANGE LAB L501.080 70-110 mg/dL High BEDSIDE GLU 297 Result Comment: MANAGEMENT OF PATIENT CARE PER NURSING PROTOCOL Performed By: #### L501.080 #### [facility] Point of Care [address] [place] [address] BEDSIDE GLUCOSE Collected: 04/15/2018 Status: F Source: INGE 5:08 PM [facility] REPOSITORY TYPE CODE TESTS RESULT OUT OF REFERENCE UNITS RANGE LAB L501.080 70-110 mg/dL High BEDSIDE GLU 287 Result Comment: MANAGEMENT OF PATIENT CARE PER NURSING PROTOCOL Performed By: #### L501.080 #### [facility] Point of Care [address] [place] [address] BEDSIDE GLUCOSE Collected: 04/15/2018 Status: F Source: INGE 12:04 PM [facility] REPOSITORY TYPE CODE TESTS RESULT OUT OF REFERENCE UNITS RANGE LAB L501.080 70-110 mg/dL High BEDSIDE GLU 386 Result Comment: MANAGEMENT OF PATIENT CARE PER NURSING PROTOCOL Performed By: #### L501.080 #### [facility] Point of Care [address] [place] [address] BEDSIDE GLUCOSE Collected: 04/15/2018 Status: F Source: INGE 7:50 AM [facility] REPOSITORY TYPE CODE TESTS RESULT OUT OF REFERENCE UNITS RANGE LAB L501.080 70-110 mg/dL High BEDSIDE GLU 346 Result Comment: MANAGEMENT OF PATIENT CARE PER NURSING PROTOCOL Performed By: #### L501.080 #### [facility] Point of Care [address] [place] [address] BEDSIDE GLUCOSE Collected: 04/14/2018 Status: F Source: INGE 9:01 PM [facility] REPOSITORY TYPE CODE TESTS RESULT OUT OF REFERENCE UNITS RANGE LAB L501.080 70-110 mg/dL High BEDSIDE GLU 415 Result Comment: MANAGEMENT OF PATIENT CARE PER NURSING PROTOCOL Performed By: #### L501.080 #### [facility] Point of Care [address] [place] [address] BEDSIDE GLUCOSE Collected: 04/14/2018 Status: F Source: INGE 5:37 PM [facility] REPOSITORY TYPE CODE TESTS RESULT OUT OF REFERENCE UNITS RANGE LAB L501.080 70-110 mg/dL High BEDSIDE GLU 415 Result Comment: MANAGEMENT OF PATIENT CARE PER NURSING PROTOCOL Performed By: #### L501.080 #### [facility] Point of Care [address] [place] [address] BEDSIDE GLUCOSE Collected: 04/14/2018 Status: F Source: INGE 12:34 PM [facility] REPOSITORY TYPE CODE TESTS RESULT OUT OF REFERENCE UNITS RANGE LAB L501.080 70-110 mg/dL High BEDSIDE GLU 422 Result Comment: MANAGEMENT OF PATIENT CARE PER NURSING PROTOCOL Performed By: #### L501.080 #### [facility] Point of Care [address] [place] [address] BEDSIDE GLUCOSE Collected: 04/14/2018 Status: F Source: INGE 7:37 AM [facility] REPOSITORY TYPE CODE TESTS RESULT OUT OF REFERENCE UNITS RANGE LAB L501.080 70-110 mg/dL High BEDSIDE GLU 375 Result Comment: MANAGEMENT OF PATIENT CARE PER NURSING PROTOCOL Performed By: #### L501.080 #### [facility] Point of Care [address] [place] [address] CRP Collected: 04/14/2018 Status: F Source: [facility] 5:22 AM [facility] REPOSITORY TYPE CODE TESTS RESULT OUT OF RANGE REFERENCE UNITS LAB L501.6710 0.0-3.0 mg/L High 17.10 C-REACTIVE PROT Result Comment: C-Reactive Protein (CRP) provides useful information for the diagnosis, therapy and monitoring of inflammatory processes and associated diseases. For the evaluation of Relative Risk for Cardiovascular Disease, a High Sensitivity CRP (HSCRP) should be ordered. Performed By: #### L501.6710 #### [facility] [address] [place], [address] ERYTHROCYTE SED RATE Collected: 04/14/2018 Status: F Source: [facility] 5:22 AM [facility] REPOSITORY TYPE CODE TESTS RESULT OUT OF RANGE REFERENCE UNITS LAB L102.0000 0-30 mm/hr High SED RATE 55 Performed By: #### L101.9900 #### [facility] [address] [place], [address] BEDSIDE GLUCOSE Collected: 04/13/2018 Status: F Source: INGE 9:30 PM [facility] REPOSITORY TYPE CODE TESTS RESULT OUT OF REFERENCE UNITS RANGE LAB L501.080 70-110 mg/dL High BEDSIDE GLU 208 Result Comment: MANAGEMENT OF PATIENT CARE PER NURSING PROTOCOL Performed By: #### L501.080 #### [facility] Point of Care [address] [place] [address] HISTORY AND PHYSICAL Observed: 04/13/2018 Status: F Source: [facility] EXAM 9:16 PM [facility] REPOSITORY [facility] Medical Records Department [address] [place] [address] History and Physical 04/13/181948 MR#: [id number] Acct: [id number] Name: NO MUNIZ Rep #: [id number] : 1940 78 From: Blas Angeles MD PCP: HIMANSHU Gill Status: ADM DEISY Y Location: [place] [address] ADDENDUM by Blas Angeles M.D. on 04/13/18 [...] surgery Psychiatric History: No pertinent psych hx SAFETY EQUIPMENT TESTING SPECIALIST History: No pertinent SAFETY EQUIPMENT TESTING SPECIALIST history Smoking Status: Never smoker Review of [...] concerning then will have to transfer to [facility] where surgery was done. 2. [...] HTN Code Visit Inpatient E AND M: 21955 Init Hosp L3 04/13/18 2017 <Electronically signed by Blas Angeles MD> Date Blas Angeles MD Cosigner Signature: Date (if applicable) CC: WATCH ASSEMBLY INSPECTOR-C Latia Chapa; Blas Angeles M.D. Signed SPINE CERVICAL Observed: 04/13/2018 Status: F Source: [facility] (ROUTINE) 4:31 PM [facility] REPOSITORY [facility] Imaging Services [address] [place] [address] Spine Cervical (Routine) MR#: [id number] Acct: [id number] Name: NO MUNIZ Rep #: [id number] : 1940 F 78 From: Adia Mccracken MD PCP: HIMANSHU Gill Status: ADM DEISY Study: Spine Cervical (Routine) Date of Exam: 04/13/18 Exam# [id number] Ordering Dr: Blas Angeles MD STUDY: MRI [...] , CC: HIMANSHU Chapa; Blas Angeles M.D. Hardware Engineering Manager: Signed EMERGENCY DEPARTMENT Observed: 04/13/2018 Status: F Source: [facility] SUMMARY 3:36 PM [facility] REPOSITORY [facility] Medical Records Department [address] [place] [address] Emergency Department Summary 04/13/18 1532 MR#: [id number] Acct: [id number] Name: NO MUNIZ Rep #: [id number] : 1940 78 From: Elin Barboza DO [...] who her surgeon was. Patient presents from senior care. Patient also complains of right sided sharp [...] pulmonary emboli] This note was generated with Retur[employer] dictation software. It may contain incorrect words, [...] your Primary Care Provider. Call [facility] ([phone]) or report to the closest Emergency Room. Call 911 if necessary. 04/13/18 1536 <Electronically signed by Elin Barboza DO> Date Elin Barboza DO Cosigner Signature (If Indicated): Date CC: WATCH ASSEMBLY INSPECTOR-C Latia Chapa CTA CHEST W/WO Observed: 04/13/2018 Status: F Source: INGE CONTRAST 1:51 PM [facility] REPOSITORY [facility] Imaging Services [address] [place] [address] CTA Chest W/WO Contrast MR#: [id number] Acct: [id number] Name: NO MUNIZ Rep #: [id number] : 1940 F 78 From: Jens Thurman MD PCP: HIMANSHU Gill Status: REG ER Study: CTA Chest W/WO Contrast Date of Exam: 04/13/18 Exam# [id number] Ordering Dr: Elin Barboza DO STUDY: CTA [...] Jens Thurman MD at 14:29 EDT Tel [phone], Service support , CC: HIMANSHU Chapa; Elin Barboza DO Hardware Engineering Manager: Signed CBC W/DIFF, AUTOMATED Collected: 04/13/2018 Status: F Source: INGE 1:20 PM [facility] REPOSITORY TYPE CODE TESTS RESULT OUT OF [...] Lymph 1.76 Performed By: #### L100.0100 #### [facility] [address] [place], [address] BASIC METABOLIC Collected: 04/13/2018 Status: F Source: INGE PROFILE (BMP) 1:20 PM [facility] REPOSITORY TYPE CODE TESTS RESULT OUT OF [...] 9 Performed By: #### L500.2500, L501.4010 #### [facility] [place], [address] TROPONIN-I Collected: 04/13/2018 Status: F Source: INGE 1:20 PM [facility] REPOSITORY TYPE CODE TESTS RESULT OUT OF RANGE REFERENCE UNITS LAB L501.4010 <0.045 ng/mL Normal < 0.015 TROPONIN-I Result Comment: TROPONIN-I EXPECTED VALUES <0.045 Negative 0.045 - 0.590 Consistent with Cardiac Damage > OR = 0.600 Critical Value Not every elevated troponin is indicative of MN. These values should be used with clinical judgement in examining the patient's clinical picture for diagnosis. To establish a diagnosis of MN versus myocardial injury, there must be a demonstrated rise and/or fall in the troponin values, in addition to ischemic symptoms, EKG changes, new regional wall motion abnormality, and/or angiographical evidence. PLEASE NOTE: REFERENCE RANGES EDITED 18 Performed By: #### L500.2500, L501.4010 #### [facility] [address] [place], [address] D-DIMER QUANTITATIVE Collected: 04/13/2018 Status: F Source: COLEMAN (DVT/PE) 1:20 PM [facility] REPOSITORY TYPE CODE TESTS RESULT OUT OF [...] SAME . Performed By: #### L300.8000 #### [facility] [address] [place], [address] CHEST 1 VIEW Observed: 04/13/2018 Status: F Source: COLEMAN (PORTABLE) 12:56 PM [facility] REPOSITORY [facility] Imaging Services [address] [place] [address] Chest 1 View (Portable) MR#: [id number] Acct: [id number] Name: NO MUNIZ Rep #: [id number] : 1940 F 78 From: Jens Thurman MD PCP: Latia Chapa NP-Loli Status: REG ER Study: Chest 1 View (Portable) Date of Exam: 04/13/18 Exam# [id number] Ordering Dr: Elin Barboza DO STUDY: X-RAY [...] acute abnormality is seen. Electronically Signed: Jens Thurmna MD at 13:13 EDT Tel [phone], Service support , CC: HIMANSHU Chapa; Elin Barboza DO Hardware Engineering Manager: Signed GLUCOSE,BEDSIDE Collected: 03/23/2018 Status: F Source: [place] 12:55 PM SYSTEM REPOSITORY TYPE CODE TESTS RESULT OUT OF RANGE REFERENCE UNITS LAB BGLU 70-100 mg/dL High 229 Glucose,Beds destini Result Comment: Test performed by glucose meter. Results may be 10%-15% lower than serum/plasma values. (CLIA ID [id number]) Performed By: #### BGLU #### [facility] [address] [place] [address] GLUCOSE,BEDSIDE Collected: 03/23/2018 Status: F Source: [place] 6:58 AM SYSTEM REPOSITORY TYPE CODE TESTS RESULT OUT OF RANGE REFERENCE UNITS LAB BGLU 70-100 mg/dL High 282 Glucose,Beds destini Result Comment: Test performed by glucose meter. Results may be 10%-15% lower than serum/plasma values. (CLIA ID [id number]) Performed By: #### BGLU #### [facility] [address] [place] [address] POTASSIUM Collected: 03/23/2018 Status: F Source: [place] 5:50 AM SYSTEM REPOSITORY TYPE CODE TESTS RESULT OUT OF RANGE REFERENCE UNITS LAB K3 3.5-5.1 mmol/L Normal Potassium 5.0 Performed By: #### K3 #### [facility] [address] [place] [address] GLUCOSE,BEDSIDE Collected: 03/23/2018 Status: F Source: [place] 4:53 AM SYSTEM REPOSITORY TYPE CODE TESTS RESULT OUT OF RANGE REFERENCE UNITS LAB BGLU 70-100 mg/dL High 340 Glucose,Beds destini Result Comment: Test performed by glucose meter. Results may be 10%-15% lower than serum/plasma values. (CLIA ID [id number]) Performed By: #### BGLU #### [facility] [address] [place] [address] GLUCOSE,BEDSIDE Collected: 03/23/2018 Status: F Source: [place] 2:49 AM SYSTEM REPOSITORY TYPE CODE TESTS RESULT OUT OF RANGE REFERENCE UNITS LAB BGLU 70-100 mg/dL High 241 Glucose,Beds destini Result Comment: Test performed by glucose meter. Results may be 10%-15% lower than serum/plasma values. (CLIA ID [id number]) Performed By: #### BGLU #### [facility] [address] [place] [address] HEMOGRAM Collected: 03/23/2018 Status: F Source: [place] 12:23 AM SYSTEM REPOSITORY TYPE CODE TESTS [...] Performed By: #### HEMOG, BMP3, MG3 #### [facility] [place] [address] BASIC METABOLIC PANEL Collected: 03/23/2018 Status: F Source: [place] 12:23 AM SYSTEM REPOSITORY TYPE CODE TESTS [...] Performed By: #### HEMOG, BMP3, MG3 #### [facility] [address] [place] [address] MAGNESIUM Collected: 03/23/2018 Status: F Source: [place] 12:23 AM SYSTEM REPOSITORY TYPE CODE TESTS RESULT OUT OF RANGE REFERENCE UNITS LAB MG3 1.6-2.3 mg/dL Normal Magnesium 1.8 Performed By: #### HEMOG, BMP3, MG3 #### [facility] [address] [place] [address] GLUCOSE,BEDSIDE Collected: 03/22/2018 Status: F Source: [place] 8:43 PM SYSTEM REPOSITORY TYPE CODE TESTS RESULT OUT OF RANGE REFERENCE UNITS LAB BGLU 70-100 mg/dL High 253 Glucose,Beds destini Result Comment: Test performed by glucose meter. Results may be 10%-15% lower than serum/plasma values. (CLIA ID [id number]) Performed By: #### BGLU #### [facility] [address] [place] [address] GLUCOSE,BEDSIDE Collected: 03/22/2018 Status: F Source: [place] 5:20 PM SYSTEM REPOSITORY TYPE CODE TESTS RESULT OUT OF RANGE REFERENCE UNITS LAB BGLU 70-100 mg/dL High 135 Glucose,Beds destini Result Comment: Test performed by glucose meter. Results may be 10%-15% lower than serum/plasma values. (CLIA ID [id number]) Performed By: #### BGLU #### [facility] [address] [place] [address] GLUCOSE,BEDSIDE Collected: 03/22/2018 Status: F Source: [place] 4:05 PM SYSTEM REPOSITORY TYPE CODE TESTS RESULT OUT OF RANGE REFERENCE UNITS LAB BGLU 70-100 mg/dL High 117 Glucose,Beds destini Result Comment: Test performed by glucose meter. Results may be 10%-15% lower than serum/plasma values. (CLIA ID [id number]) Performed By: #### BGLU #### [facility] [place] [address] GLUCOSE,BEDSIDE Collected: 03/22/2018 Status: F Source: [place] 3:35 PM SYSTEM REPOSITORY TYPE CODE TESTS RESULT OUT OF RANGE REFERENCE UNITS LAB BGLU 70-100 mg/dL High 122 Glucose,Beds destini Result Comment: Test performed by glucose meter. Results may be 10%-15% lower than serum/plasma values. (CLIA ID [id number]) Performed By: #### BGLU #### [facility] [address] [place] [address] GLUCOSE,BEDSIDE Collected: 03/22/2018 Status: F Source: [place] 12:34 PM SYSTEM REPOSITORY TYPE CODE TESTS RESULT OUT OF RANGE REFERENCE UNITS LAB BGLU 70-100 mg/dL High 127 Glucose,Beds destini Result Comment: Test performed by glucose meter. Results may be 10%-15% lower than serum/plasma values. (CLIA ID [id number]) Performed By: #### BGLU #### [facility] [place] [address] GLUCOSE,BEDSIDE Collected: 03/22/2018 Status: F Source: [place] 8:44 AM SYSTEM REPOSITORY TYPE CODE TESTS RESULT OUT OF RANGE REFERENCE UNITS LAB BGLU 70-100 mg/dL High 127 Glucose,Beds destini Result Comment: Test performed by glucose meter. Results may be 10%-15% lower than serum/plasma values. (CLIA ID [id number]) Performed By: #### BGLU #### [facility] [address] [place] [address] GLUCOSE,BEDSIDE Collected: 03/22/2018 Status: F Source: [place] 6:32 AM SYSTEM REPOSITORY TYPE CODE TESTS RESULT OUT OF RANGE REFERENCE UNITS LAB BGLU 70-100 mg/dL High 145 Glucose,Beds destini Result Comment: Test performed by glucose meter. Results may be 10%-15% lower than serum/plasma values. (CLIA ID [id number]) Performed By: #### BGLU #### [facility] [address] [place] [address] HEMOGRAM Collected: 03/22/2018 Status: F Source: [place] 12:04 AM SYSTEM REPOSITORY TYPE CODE TESTS [...] By: #### HEMOG, PT/AP, BMP3, MG3 #### [facility] [address] [place] [address] PROTIME AND APTT Collected: 03/22/2018 Status: F Source: [place] 12:04 AM SYSTEM REPOSITORY TYPE CODE TESTS [...] By: #### HEMOG, PT/AP, BMP3, MG3 #### [facility] [address] [place] [address] BASIC METABOLIC PANEL Collected: 03/22/2018 Status: F Source: [place] 12:04 AM SYSTEM REPOSITORY TYPE CODE TESTS [...] By: #### HEMOG, PT/AP, BMP3, MG3 #### [facility] [address] [place] [phone] MAGNESIUM Collected: 03/22/2018 Status: F Source: [place] 12:04 AM SYSTEM REPOSITORY TYPE CODE TESTS RESULT OUT OF RANGE REFERENCE UNITS LAB MG3 1.6-2.3 mg/dL Normal Magnesium 1.7 Performed By: #### HEMOG, PT/AP, BMP3, MG3 #### [facility] [address] [place] [address] GLUCOSE,BEDSIDE Collected: 03/21/2018 Status: F Source: [place] 8:36 PM SYSTEM REPOSITORY TYPE CODE TESTS RESULT OUT OF RANGE REFERENCE UNITS LAB BGLU 70-100 mg/dL High 248 Glucose,Beds destini Result Comment: Test performed by glucose meter. Results may be 10%-15% lower than serum/plasma values. (CLIA ID [id number]) Performed By: #### BGLU #### [facility] [address] [place] [address] GLUCOSE,BEDSIDE Collected: 03/21/2018 Status: F Source: [place] 4:53 PM SYSTEM REPOSITORY TYPE CODE TESTS RESULT OUT OF RANGE REFERENCE UNITS LAB BGLU 70-100 mg/dL High 287 Glucose,Beds destini Result Comment: Test performed by glucose meter. Results may be 10%-15% lower than serum/plasma values. (CLIA ID [id number]) Performed By: #### BGLU #### [facility] [address] [place] [address] 12 LEAD ELECTROCARDIOGRAM Observed: 03/21/2018 Status: F Source: COLEMAN 3:44 PM [facility] REPOSITORY [facility] Cardiovascular Services [address] [place] [address] 12 Lead EKG 03/17/18 0745 MR#: [id number] Acct: [id number] Name: NO MUNIZ Rep #: [id number] : 1940 78 From: Shan Henry MD Attending Dr: Claudia Cruz MD Status: DIS IN Ordering Dr: Justus Gutierrez MD Date: 03/17/18 Location: [facility] Sex: F C Admitted: 03/18/18 Test Reason [...] ECG Confirmed by CARL EL, SHAN ([id number]), scientific publications editor DAMIAN MCCRACKEN ([id number]) on 03/21/2018 3:43:47 PM Referred By: LILA Confirmed By:SHAN HENRY MD 03/21/18 0126 Date Shan Henry MD CC: WATCH ASSEMBLY INSPECTORKristopher Chapa; JUSTUS GUTIERREZ MD; Claudia Cruz MD Signed Observed: 03/21/2018 Status: F Source: [place] CULTURE URINE 12:08 PM SYSTEM REPOSITORY Order [...] 20 S Performed By: #### C/UR #### [facility] [address] [address] [facility] [address] [place] [phone] GLUCOSE,BEDSIDE Collected: 03/21/2018 Status: F Source: [place] 11:49 AM SYSTEM REPOSITORY TYPE CODE TESTS RESULT OUT OF RANGE REFERENCE UNITS LAB BGLU 70-100 mg/dL High 330 Glucose,Beds destini Result Comment: Test performed by glucose meter. Results may be 10%-15% lower than serum/plasma values. (CLIA ID [id number]) Performed By: #### BGLU #### [facility] [address] [place] [address] GLUCOSE,BEDSIDE Collected: 03/21/2018 Status: F Source: [place] 7:51 AM SYSTEM REPOSITORY TYPE CODE TESTS RESULT OUT OF RANGE REFERENCE UNITS LAB BGLU 70-100 mg/dL High 279 Glucose,Beds destini Result Comment: Test performed by glucose meter. Results may be 10%-15% lower than serum/plasma values. (CLIA ID [id number]) Performed By: #### BGLU #### [facility] [address] [place] [address] HEMOGRAM Collected: 03/21/2018 Status: F Source: [place] 1:42 AM SYSTEM REPOSITORY TYPE CODE TESTS [...] Performed By: #### HEMOG, BMP3, MG3 #### [facility] [address] [place] [address] BASIC METABOLIC PANEL Collected: 03/21/2018 Status: F Source: [place] 1:42 AM SYSTEM REPOSITORY TYPE CODE TESTS [...] Performed By: #### HEMOG, BMP3, MG3 #### [facility] [place] [address] MAGNESIUM Collected: 03/21/2018 Status: F Source: [place] 1:42 AM SYSTEM REPOSITORY TYPE CODE TESTS RESULT OUT OF RANGE REFERENCE UNITS LAB MG3 1.6-2.3 mg/dL Normal Magnesium 1.9 Performed By: #### HEMOG, BMP3, MG3 #### [facility] [address] [place] [phone] GLUCOSE,BEDSIDE Collected: 03/20/2018 Status: F Source: [place] 8:20 PM SYSTEM REPOSITORY TYPE CODE TESTS RESULT OUT OF RANGE REFERENCE UNITS LAB BGLU 70-100 mg/dL High 303 Glucose,Beds destini Result Comment: Test performed by glucose meter. Results may be 10%-15% lower than serum/plasma values. (CLIA ID [id number]) Performed By: #### BGLU #### [facility] [address] [place] [phone] CR PELVIS 1 OR 2 Observed: 03/20/2018 Status: F Source: [place] 7:14 PM SYSTEM REPOSITORY Patient Name: NO MUNIZ Diagnostic Radiology Exam Date/Time 03/20/2018 11:49:51 EDT Exam CR Pelvis 1 or 2 Views Ordering Physician LANDY WILLIS HEATHER Accession Number [id number] CPT4 Codes 57449 () Reason For Exam fall Report PELVIS [...] 2 VIEWS Observed: 03/20/2018 Status: F Source: [place] [facility] 7:13 PM SYSTEM REPOSITORY Patient Name: NO MUNIZ Diagnostic Radiology Exam Date/Time 03/20/2018 11:49:27 EDT Exam CR Ankle 2 Views Left Ordering Physician VAUGHN MEDEROS Accession Number [id number] CPT4 Codes 62656 () Reason For Exam swelling Report LEFT [...] CHEST PORTABLE Observed: 03/20/2018 Status: F Source: [place] 7:13 PM SYSTEM REPOSITORY Patient Name: NO MUNIZ Diagnostic Radiology Exam Date/Time 03/20/2018 11:50:07 EDT Exam CR Chest Portable Ordering Physician LANDY WILLIS HEATHER Accession Number [id number] CPT4 Codes 12094 () Reason For Exam fall Report SINGLE [...] BRAIN W/O Observed: 03/20/2018 Status: F Source: [employer] 7:10 PM SYSTEM REPOSITORY Patient Name: NO MUNIZ MRI Exam Date/Time 03/20/2018 16:10:44 EDT Exam MRI Brain w/o Contrast Ordering Physician MARITZA WERNER Accession Number [id number] CPT4 Codes 65722 () Reason For Exam LOC Report MRI [...] Physician MD RIVERO PAUL W Accession Number [id number] CPT4 Codes 50296 () Reason For Exam RUE pain, degenerative [...] 6:59 GLUCOSE,BEDSIDE Collected: 03/20/2018 Status: F Source: [place] 5:30 PM SYSTEM REPOSITORY TYPE CODE TESTS RESULT OUT OF RANGE REFERENCE UNITS LAB BGLU 70-100 mg/dL High 329 Glucose,Beds destini Result Comment: Test performed by glucose meter. Results may be 10%-15% lower than serum/plasma values. (CLIA ID [id number]) Performed By: #### BGLU #### [facility] [address] [place] [address] GLUCOSE,BEDSIDE Collected: 03/20/2018 Status: F Source: [place] 12:35 PM SYSTEM REPOSITORY TYPE CODE TESTS RESULT OUT OF RANGE REFERENCE UNITS LAB BGLU 70-100 mg/dL High 221 Glucose,Beds destini Result Comment: Test performed by glucose meter. Results may be 10%-15% lower than serum/plasma values. (CLIA ID [id number]) Performed By: #### BGLU #### [facility] [address] [place] [address] VL VENOUS DUPLEX US Observed: 03/20/2018 Status: F Source: [place] LOWER EXT BILATERAL 12:32 PM SYSTEM REPOSITORY Patient Name: NO MUNIZ Ultrasound Exam Date/Time 03/20/2018 13:24:54 EDT Exam VL Venous Duplex US Lower Ext Bilateral Ordering Physician VAUGHN MEDEROS Accession Number [id number] CPT4 Codes 51973 () Reason For Exam swelling LLE Report [facility] --- Lower Extremity Venous Duplex Report Patient Name: DO CristyB: 1940 Study Date: 03/20/2018 No (78yrs) Age: 78 Account: [id number] Gender: F Loc: [facility] BP: Ordering: Vaughn Mederos Technologist: Ordering Physician: Vaughn Mederos Concrete Batching Plant Operator: Harjit Askew Rodolfo, [facility] Interpreting Physician: Stephen Cotto MD --- Location: [facility] --- INDICATIONS: Swelling of limb. swelling [...] performed. The images were obtained using a [employer] E9 vascular ultrasound machine. The study was [...] --+ Electronically signed by: Stephen Cotto MD [id number] Final Dictated: 03/20/2018 1:36 pm Dictating Physician: STEPHEN COTTO Signed Date and Time: 03/20/2018 1:35 pm Signed by: STEPHEN COTTO [facility] Collected: 03/20/2018 Status: F Source: [facility] 7:45 AM SYSTEM REPOSITORY TYPE CODE TESTS RESULT OUT OF RANGE REFERENCE UNITS LAB BGLU 70-100 mg/dL High 163 Glucose,Beds destini Result Comment: Test performed by glucose meter. Results may be 10%-15% lower than serum/plasma values. (CLIA ID [id number]) Performed By: #### BGLU #### [facility] [address] [place] [address] BASIC METABOLIC PANEL Collected: 03/20/2018 Status: F Source: [place] 1:00 AM SYSTEM REPOSITORY TYPE CODE TESTS [...] By: #### BMP3, PHOS3, HEMOG, HA1C2 #### [facility] [address] [place] [address] PHOSPHORUS Collected: 03/20/2018 Status: F Source: [place] 1:00 AM SYSTEM REPOSITORY TYPE CODE TESTS RESULT OUT OF RANGE REFERENCE UNITS LAB PHOS3 2.5-4.5 mg/dL Normal Phosphorus 4.2 Performed By: #### BMP3, PHOS3, HEMOG, HA1C2 #### [facility] [address] [place] [address] HEMOGRAM Collected: 03/20/2018 Status: F Source: [place] 1:00 AM SYSTEM REPOSITORY TYPE CODE TESTS [...] By: #### BMP3, PHOS3, HEMOG, HA1C2 #### [facility] [address] [place] [address] HEMOGLOBIN A1C Collected: 03/20/2018 Status: F Source: [place] 1:00 AM SYSTEM REPOSITORY TYPE CODE TESTS RESULT OUT OF REFERENCE UNITS RANGE LAB A1C2 4.0-5.7 % High Hemoglobin A1C 9.9 Result Comment: --HgbA1C levels may not be accurate in patients who have renal disease, received recent blood transfusions, are anemic, or who have dyshemoglobinemia. LAB EAG2 mg/dL Estimated Avg Glucose 237 Performed By: #### BMP3, PHOS3, HEMOG, HA1C2 #### [employer] [address] [address] MAGNESIUM Collected: 03/20/2018 Status: F Source: [place] 1:00 AM SYSTEM REPOSITORY TYPE CODE TESTS RESULT OUT OF RANGE REFERENCE UNITS LAB MG3 1.6-2.3 mg/dL Normal Magnesium 1.8 Result Comment: Moderately hemolysed, interpret with caution. Performed By: #### MG3 #### [facility] [address] [address] VIT D 25-OH, TOTAL Collected: 03/20/2018 Status: F Source: [place] 1:00 AM SYSTEM REPOSITORY TYPE CODE TESTS [...] equal to 30 ng/mL Test performed by fluid [employer]s Competitive Immunoassay, measuring Total Vitamin D, not individual fractions. Performed By: #### VD25H #### [facility] [address] [place] [address] GLUCOSE,BEDSIDE Collected: 03/19/2018 Status: F Source: [place] 10:34 PM SYSTEM REPOSITORY TYPE CODE TESTS RESULT OUT OF RANGE REFERENCE UNITS LAB BGLU 70-100 mg/dL High 189 Glucose,Beds destini Result Comment: Test performed by glucose meter. Results may be 10%-15% lower than serum/plasma values. (CLIA ID [id number]) Performed By: #### BGLU #### [facility] [address] [place] [address] [address] SPINE CERVICAL W/O Observed: 03/19/2018 Status: F Source: [place] CONTRAST 7:01 PM SYSTEM REPOSITORY Patient Name: NO MUNIZ CT Exam Date/Time 03/19/2018 18:37:[address] Spine Cervical w/o Contrast Ordering Physician MD PANCHO, CHELSEA Cisneros Accession Number [id number] CPT4 Codes 49438 () Reason For Exam fall, RUE weakness [...] 7:01 HEMOGRAM Collected: 03/19/2018 Status: F Source: [place] 6:12 PM SYSTEM REPOSITORY TYPE CODE TESTS [...] HEMOG, PT/AP, BMP3, LFT3, TROPN, TSH4 #### [facility] [address] [place] [address] PROTIME AND APTT Collected: 03/19/2018 Status: F Source: [place] 6:12 PM SYSTEM REPOSITORY TYPE CODE TESTS [...] HEMOG, PT/AP, BMP3, LFT3, TROPN, TSH4 #### [facility] [address] [place] [address] BASIC METABOLIC PANEL Collected: 03/19/2018 Status: F Source: [place] 6:12 PM SYSTEM REPOSITORY TYPE CODE TESTS [...] HEMOG, PT/AP, BMP3, LFT3, TROPN, TSH4 #### [employer] [address] [address] HEPATIC FUNCTION Collected: 03/19/2018 Status: F Source: [place] 6:12 PM SYSTEM REPOSITORY TYPE CODE TESTS [...] HEMOG, PT/AP, BMP3, LFT3, TROPN, TSH4 #### [facility] [address] [place] [address] TROPONIN I Collected: 03/19/2018 Status: F Source: [place] 6:12 PM SYSTEM REPOSITORY TYPE CODE TESTS RESULT OUT OF RANGE REFERENCE UNITS LAB TROP4 0.000-0.034 ng/mL Normal Troponin I < 0.012 Result Comment: 0.046 - 0.400 = Indeterminate > 0.400 = Consider Myocardial Injury Performed By: #### HEMOG, PT/AP, BMP3, LFT3, TROPN, TSH4 #### [facility] [address] [place] [address] THYROID STIM. Collected: 03/19/2018 Status: F Source: [place] HORMONE 6:12 PM SYSTEM REPOSITORY TYPE CODE TESTS RESULT OUT OF RANGE REFERENCE UNITS LAB TSH4 0.465-4.680 uU/mL Normal Thyroid Stim. 3.784 Hormone Performed By: #### HEMOG, PT/AP, BMP3, LFT3, TROPN, TSH4 #### [facility] [address] [place] [address] DISCHARGE SUMMARY Observed: 03/19/2018 Status: F Source: [place] 2:58 PM [facility] REPOSITORY [facility] Medical Records Department [address] [place] [address] Discharge Summary 03/19/18 1355 MR#: [id number] Acct: [id number] Name: NO MUNIZ Rep #: [id number] : 1940 78 From: Shavon DOWNS PCP: HIMANSHU Gill Status: ADM IN Location: [facility] [id number] <Shavon Bradley - Last Filed: 03/19/18 14:05> [...] Jens Thurman MD at 10:22 EDT Tel [phone], Service support , Chest X-Ray 03/17/18 09:01 IMPRESSION: Findings in keeping with vascular congestion and mild degree of CHF. Electronically Signed: Jens Thurman MD at 10:19 EDT Tel [phone], Service support , Brain MRI 03/17/18 12:20 [...] which may be contributing to her symptoms. [facility] contacted who is willing to accept patient for neurosurgery evaluation. Patient and family agreeable to this. Patient is stable of time of transfer to [facility]. General: Alert, Oriented x3, Cooperative HEENT: Atraumatic, [...] is stable at time of transfer to [facility] for further neurosurgery evaluation regarding severe central [...] to tertiary hospital for urgent neurosurgery evaluation.. [facility] accepted patient was transferred. Patient seen and [...] CT reading as above. Patient transferred to [facility] as per Shavon DOWNS's note. [] This note was generated with [employer] software. It may contain incorrect words, spelling, and punctuation that were not noted in checking the note before signing. Code Visit Inpatient E AND M: [id number] Disch Hosp 03/19/18 1405 <Electronically signed by Shavon DOWNS> Date Shavon DOWNS 03/19/18 8245<Electronically signed by Claudia Cruz MD> Cosigner Signature (if applicable): Date Claudia Cruz MD CC: WATCH ASSEMBLY INSPECTOR-C Shavon Bradley; WATCH ASSEMBLY INSPECTOR-C Latia Chapa; Claudia Cruz MD Signed BEDSIDE GLUCOSE Collected: 03/19/2018 Status: F Source: [place] 11:20 AM [facility] REPOSITORY TYPE CODE TESTS RESULT OUT OF REFERENCE UNITS RANGE LAB L501.080 70-110 mg/dL High BEDSIDE GLU 170 Result Comment: MANAGEMENT OF PATIENT CARE PER NURSING PROTOCOL Performed By: #### L501.080 #### [facility] Point of Care [address] [place] [address] SPINE CERVICAL Observed: 03/19/2018 Status: F Source: [place] WITHOUT CONTRAS 9:28 AM [facility] REPOSITORY [facility] Imaging Services [address] [place] [address] Spine Cervical without Contras MR#: [id number] Acct: [id number] Name: NO MUNIZ Rep #: [id number] : 1940 F 78 From: Alfonso Pozo MD PCP: HIMANSHU Gill Status: ADM IN Study: Spine Cervical without Contras Date of Exam: 03/19/18 Exam# [id number] Ordering Dr: Shavon Bradley STUDY: CT CERVICAL [...] support , CC: HIMANSHU Bradley; HIMANSHU Chapa Hardware Engineering Manager: Signed BEDSIDE GLUCOSE Collected: 03/19/2018 Status: F Source: COLEMAN 7:30 AM [facility] REPOSITORY TYPE CODE TESTS RESULT OUT OF REFERENCE UNITS RANGE LAB L501.080 70-110 mg/dL High BEDSIDE GLU 115 Result Comment: MANAGEMENT OF PATIENT CARE PER NURSING PROTOCOL Performed By: #### L501.080 #### [facility] Point of Care [address] [place], [place] [address] CBC W/DIFF, AUTOMATED Collected: 03/19/2018 Status: F Source: COLEMAN 6:25 AM [facility] REPOSITORY TYPE CODE TESTS RESULT OUT OF [...] Lymph 3.00 Performed By: #### L100.0100 #### [facility] [address] [place], [place], [address] BASIC METABOLIC Collected: 03/19/2018 Status: F Source: COLEMAN PROFILE (BMP) 6:25 AM [facility] REPOSITORY TYPE CODE TESTS RESULT OUT OF [...] GAP 9 Performed By: #### L500.2500 #### [facility] [address] [place], [address] BEDSIDE GLUCOSE Collected: 03/18/2018 Status: F Source: INGE 9:33 PM [facility] REPOSITORY TYPE CODE TESTS RESULT OUT OF REFERENCE UNITS RANGE LAB L501.080 70-110 mg/dL High BEDSIDE GLU 171 Result Comment: MANAGEMENT OF PATIENT CARE PER NURSING PROTOCOL Performed By: #### L501.080 #### [facility] Point of Care [address] [place] [address] BEDSIDE GLUCOSE Collected: 03/18/2018 Status: F Source: INGE 4:48 PM [facility] REPOSITORY TYPE CODE TESTS RESULT OUT OF REFERENCE UNITS RANGE LAB L501.080 70-110 mg/dL High BEDSIDE GLU 172 Result Comment: MANAGEMENT OF PATIENT CARE PER NURSING PROTOCOL Performed By: #### L501.080 #### [facility] Point of Care [address] [place] [address] BEDSIDE GLUCOSE Collected: 03/18/2018 Status: F Source: INGE 11:26 AM [facility] REPOSITORY TYPE CODE TESTS RESULT OUT OF REFERENCE UNITS RANGE LAB L501.080 70-110 mg/dL High BEDSIDE GLU 199 Result Comment: MANAGEMENT OF PATIENT CARE PER NURSING PROTOCOL Performed By: #### L501.080 #### [facility] Point of Care [address] [place] [address] BEDSIDE GLUCOSE Collected: 03/18/2018 Status: F Source: INGE 6:52 AM [facility] REPOSITORY TYPE CODE TESTS RESULT OUT OF REFERENCE UNITS RANGE LAB L501.080 70-110 mg/dL High BEDSIDE GLU 146 Result Comment: MANAGEMENT OF PATIENT CARE PER NURSING PROTOCOL Performed By: #### L501.080 #### [facility] [place] [address] CBC W/DIFF, AUTOMATED Collected: 03/18/2018 Status: F Source: INGE 5:50 AM [facility] REPOSITORY TYPE CODE TESTS RESULT OUT OF [...] Lymph 2.41 Performed By: #### L100.0100 #### [facility] [address] [place], [place], [address] BASIC METABOLIC Collected: 03/18/2018 Status: F Source: INGE PROFILE (BMP) 5:50 AM [facility] REPOSITORY TYPE CODE TESTS RESULT OUT OF [...] GAP 7 Performed By: #### L500.2500 #### [facility] [address] [place], [place], [address] BEDSIDE GLUCOSE Collected: 03/17/2018 Status: F Source: INGE 9:34 PM [facility] REPOSITORY TYPE CODE TESTS RESULT OUT OF REFERENCE UNITS RANGE LAB L501.080 70-110 mg/dL High BEDSIDE GLU 152 Result Comment: MANAGEMENT OF PATIENT CARE PER NURSING PROTOCOL Performed By: #### L501.080 #### [facility] Point of Care [address] [place] [address] EMERGENCY DEPARTMENT Observed: 03/17/2018 Status: F Source: COLEMAN SUMMARY 5:24 PM [facility] REPOSITORY [facility] Medical Records Department [address] [place] [address] Emergency Department Summary 03/17/18 0903 MR#: [id number] Acct: [id number] Name: NO MUNIZ Rep #: [id number] : 1940 78 From: Justus Gutierrez MD [...] 07:43) Vomiting Primary Care Physician: Eduard,Latia Andrzej, WATCH ASSEMBLY INSPECTOR-C [Primary Care Provider] - Lives: Alone Smoking [...] Jens Thurman MD at 10:22 EDT Tel [phone], Service support , Chest X-Ray 03/17/18 09:01 IMPRESSION: Findings in keeping with vascular congestion and mild degree of CHF. Electronically Signed: Jens Thurman MD at 10:19 EDT Tel [phone], Service support , 03/17/18 09:01 Brain/Head without [...] for ED Patient: Disposition: Acute Care Hospital [facility] Chief Complaint: Upper Extremity Injury Diagnosis: Vertigo, peripheral, Carpal tunnel syndrome on right, Chest pain, unspecified What to do if you have Problems For any increased pain, shortness of breath, bleeding, nausea or vomiting, chest pain, or any unexpected problems, contact your Primary Care Provider. Call [facility] ([phone]) or report to the closest Emergency Room. Call 911 if necessary. 03/17/18 4569 <Electronically signed by Justus Gutierrez MD> Date Justus Osorio Signature (If Indicated): Date CC: WATCH ASSEMBLY INSPECTOR-C Latia Chapa TROPONIN-I Collected: 03/17/2018 Status: F Source: COLEMAN 5:23 PM [facility] REPOSITORY Order Comment: 'TROP' Serial specimen #1, #2 or #3: 2 TYPE CODE TESTS RESULT OUT OF RANGE REFERENCE UNITS LAB L501.4010 <0.045 ng/mL Normal < 0.015 TROPONIN-I Result Comment: TROPONIN-I EXPECTED VALUES <0.045 Negative 0.045 - 0.590 Consistent with Cardiac Damage > OR = 0.600 Critical Value Not every elevated troponin is indicative of MN. These values should be used with clinical judgement in examining the patient's clinical picture for diagnosis. To establish a diagnosis of MN versus myocardial injury, there must be a demonstrated rise and/or fall in the troponin values, in addition to ischemic symptoms, EKG changes, new regional wall motion abnormality, and/or angiographical evidence. PLEASE NOTE: REFERENCE RANGES EDITED 18 Performed By: #### L501.4010 #### [facility] [address] [facility] [place], [address] HISTORY AND PHYSICAL Observed: 03/17/2018 Status: F Source: COLEMAN EXAM 4:43 PM [facility] REPOSITORY [facility] Medical Records Department [address] [place] [address] History and Physical 03/17/18 1224 MR#: [id number] Acct: [id number] Name: NO MUNIZ John Rep #: [id number] : 1940 78 From: Claudia Cruz MD PCP: Latia Chapa WATCH ASSEMBLY INSPECTORKristopher Status: ADM DEISY Y Location: [place] [address] Problem List (1) Vertigo, peripheral Status: Acute [...] surgery Psychiatric History: No pertinent psych hx SAFETY EQUIPMENT TESTING SPECIALIST History: No pertinent SAFETY EQUIPMENT TESTING SPECIALIST history Lives: Alone, With Family Smoking Status: [...] WNL. Gait not assessed. Unable to do Mershon Hallpike testing as patient got uncomfortable even [...] Jens Thurman MD at 10:22 EDT Tel [phone], Service support , Chest X-Ray 03/17/18 09:01 IMPRESSION: Findings in keeping with vascular congestion and mild degree of CHF. Electronically Signed: Jens Thurman MD at 10:19 EDT Tel [phone], Service support , 03/17/18 09:01 Brain/Head without [...] 8. Code Visit OBSV E AND M: 69970 Initial observation care L2 03/17/18 1643 <Electronically signed by Claudia Cruz MD> Date Claudia Cruz MD Cosigner Signature: Date (if applicable) CC: WATCH ASSEMBLY INSPECTOR-C Latia Chapa; Claudia Cruz MD Signed BEDSIDE GLUCOSE Collected: 03/17/2018 Status: F Source: COLEMAN 4:21 PM [facility] REPOSITORY TYPE CODE TESTS RESULT OUT OF REFERENCE UNITS RANGE LAB L501.080 70-110 mg/dL High BEDSIDE GLU 126 Result Comment: MANAGEMENT OF PATIENT CARE PER NURSING PROTOCOL Performed By: #### L501.080 #### [facility] Point of Care [address] [place] [address] WRIST 2 VIEWS Observed: 03/17/2018 Status: F Source: INGE 3:36 PM [facility] REPOSITORY [facility] Imaging Services [address] [place] [address] Wrist 2 Views MR#: [id number] Acct: [id number] Name: NO MUNIZ Rep #: [id number] : 1940 F 78 From: Kp Adame MD PCP: HIMANSHU Gill Status: ADM DEISY Study: Wrist 2 Views Date of Exam: 03/17/18 Exam# [id number] Ordering Dr: Claudia Cruz MD STUDY: X-RAY [...] 19:40 EDT , Service support , CC: WATCH ASSEMBLY INSPECTOR-C Latia Chapa; Claudia Cruz MD Hardware Engineering Manager: Signed SHOULDER MIN 2 VIEWS Observed: 03/17/2018 Status: F Source: COLEMAN 3:36 PM [facility] REPOSITORY [facility] Imaging Services [address] [place] [address] Shoulder min 2 Views MR#: [id number] Acct: [id number] Name: NO MUNIZ Rep #: [id number] : 1940 F 78 From: Kp Adame MD PCP: Latia Chapa NP-C Status: ADM DEISY Study: Shoulder min 2 Views Date of Exam: 03/17/18 Exam# [id number] Ordering Dr: Claudia Cruz MD STUDY: X-RAY [...] 19:40 EDT , Service support , CC: WATCH ASSEMBLY INSPECTOR-C Latia Chapa; Claudia Cruz MD Hardware Engineering Manager: Signed ELBOW 2 VIEWS Observed: 03/17/2018 Status: F Source: COLEMAN 3:36 PM [facility] REPOSITORY [facility] Imaging Services [address] [place] [address] Elbow 2 Views MR#: [id number] Acct: [id number] Name: NO MUNIZ Rep #: [id number] : 1940 F 78 From: Kp Adame MD PCP: HIMANSHU Gill Status: ADM DEISY Study: Elbow 2 Views Date of Exam: 03/17/18 Exam# [id number] Ordering Dr: Claudia Cruz MD STUDY: X-RAY [...] 19:41 EDT , Service support , CC: WATCH ASSEMBLY INSPECTOR-C Latia Chapa; Claudia Cruz MD Hardware Engineering Manager: Signed BEDSIDE GLUCOSE Collected: 03/17/2018 Status: F Source: COLEMAN 1:04 PM [facility] REPOSITORY TYPE CODE TESTS RESULT OUT OF REFERENCE UNITS RANGE LAB L501.080 70-110 mg/dL High BEDSIDE GLU 159 Result Comment: MANAGEMENT OF PATIENT CARE PER NURSING PROTOCOL Performed By: #### L501.080 #### [facility] Point of Care [address] [facility] [place] [address] BRAIN WITHOUT Observed: 03/17/2018 Status: F Source: COLEMAN CONTRAST 12:21 PM [facility] REPOSITORY [facility] Imaging Services [address] [place] [address] Brain without Contrast MR#: [id number] Acct: [id number] Name: NO MUNIZ Rep #: [id number] : 1940 F 78 From: Kp Adame MD PCP: HIMANSHU Gill Status: ADM DEISY Study: Brain without Contrast Date of Exam: 03/17/18 Exam# [id number] Ordering Dr: Claudia Cruz MD STUDY: MRI [...] , CC: HIMANSHU Chapa; Claudia Cruz MD Hardware Engineering Manager: Signed URINALYSIS, COMPLETE Collected: 03/17/2018 Status: F Source: INGE 10:05 AM [facility] REPOSITORY Order Comment: How was Urine Obtained? CLINICAL NURSE REVIEWER TO SPECIFY TYPE CODE TESTS RESULT OUT [...] URINE SEEN Performed By: #### L400.0001 #### [facility] [address] [place], [address] BASIC METABOLIC Collected: 03/17/2018 Status: F Source: COLEMAN PROFILE (BMP) 9:10 AM [facility] REPOSITORY TYPE CODE TESTS RESULT OUT OF [...] 8 Performed By: #### L500.2500, L501.4010 #### [facility] [address] [place], [address] TROPONIN-I Collected: 03/17/2018 Status: F Source: COLEMAN 9:10 AM [facility] REPOSITORY TYPE CODE TESTS RESULT OUT OF RANGE REFERENCE UNITS LAB L501.4010 <0.045 ng/mL Normal < 0.015 TROPONIN-I Result Comment: TROPONIN-I EXPECTED VALUES <0.045 Negative 0.045 - 0.590 Consistent with Cardiac Damage > OR = 0.600 Critical Value Not every elevated troponin is indicative of MN. These values should be used with clinical judgement in examining the patient's clinical picture for diagnosis. To establish a diagnosis of MN versus myocardial injury, there must be a demonstrated rise and/or fall in the troponin values, in addition to ischemic symptoms, EKG changes, new regional wall motion abnormality, and/or angiographical evidence. PLEASE NOTE: REFERENCE RANGES EDITED 18 Performed By: #### L500.2500, L501.4010 #### [facility] [address] [facility] [place], [address] CBC W/DIFF, AUTOMATED Collected: 03/17/2018 Status: F Source: COLEMAN 9:10 AM [facility] REPOSITORY TYPE CODE TESTS RESULT OUT OF [...] Lymph 1.21 Performed By: #### L100.0100 #### [facility] [address] [place], [address] BNP,B-TYPE NATRIURETIC Collected: 03/17/2018 Status: F Source: COLEMAN PEPTIDE 9:10 AM [facility] REPOSITORY Order Comment: ADD ON TO BLOOD IN LAB PLEASE TYPE CODE TESTS RESULT OUT OF RANGE REFERENCE UNITS LAB L503.6620 0-100 pg/mL High B-TYPE 149.0 FABIÁN PEP Performed By: #### L503.6620 #### [facility] [address] [place], [address] CHEST 1 VIEW Observed: 03/17/2018 Status: F Source: INGE (PORTABLE) 9:03 AM [facility] REPOSITORY [facility] Imaging Services [address] [place] [address] Chest 1 View (Portable) MR#: [id number] Acct: [id number] Name: NO MUNIZ John Rep #: [id number] : 1940 F 78 From: Jens Thurman MD PCP: Latia Chapa WATCH ASSEMBLY INSPECTOR-C Status: REG ER Study: Chest 1 View (Portable) Date of Exam: 03/17/18 Exam# [id number] Ordering Dr: Justus Gutierrez MD STUDY: X-RAY [...] Jens Thurman MD at 10:19 EDT Tel [phone], Service support , CC: HIMANSHU Chapa; JUSTUS GUTIERREZ MD Hardware Engineering Manager: Signed BRAIN/HEAD WITHOUT Observed: 03/17/2018 Status: F Source: COLEMAN CONTRAST 9:03 AM [facility] REPOSITORY [facility] Imaging Services [address] [place] [address] Brain/Head without Contrast MR#: [id number] Acct: [id number] Name: NO MUNIZ Rep #: [id number] : 1940 F 78 From: Jens Thurman MD PCP: HIMANSHU Gill Status: REG ER Study: Brain/Head without Contrast Date of Exam: 03/17/18 Exam# [id number] Ordering Dr: Justus Gutierrez MD STUDY: CT [...] Jens Thurman MD at 10:22 EDT Tel [phone], Service support , CC: HIMANSHU Chapa; JUSTUS GUTIERREZ MD Hardware Engineering Manager: Signed TSH Collected: 02/24/2018 Status: F Source: Linksify 9:20 AM [facility] REPOSITORY TYPE CODE TESTS RESULT OUT OF RANGE REFERENCE UNITS LAB TSH(LOINC) 0.27-4.20 mcIU/mL TSH 1.70 Performed By: #### TSH #### [address] [address] RENAL Observed: 02/03/2018 Status: F Source: Linksify 5:00 PM [facility] REPOSITORY ORIGINAL Complete retroperitoneal ultrasound for the [...] for hydronephrosis on this exam. Interpreted By: Reynlado Marinelli MD Preliminary Report By: Reynaldo Marinelli MD Electronically Signed By: Reynaldo Marinelli MD Dictated Date: 2018 8:54:55 AM Prelim Date: 2018 8:54:55 AM Sign Date: 2018 9:04:02 AM URINALYSIS, COMPLETE Collected: 02/01/2018 Status: F Source: COLEMAN 2:03 PM [facility] REPOSITORY Order Comment: How was Urine Obtained? [...] URINE SEEN Performed By: #### L400.0001 #### [facility] [address] [place], [address] RENAL PROFILE Collected: 02/01/2018 Status: F Source: INGE 2:03 PM [facility] REPOSITORY TYPE CODE TESTS RESULT OUT OF [...] CO2 24.0 Performed By: #### L500.3600 #### [facility] [address] [facility] [place], [place], [address] PROTEIN+CREATININE Collected: Status: F Source: INGE RATIO,URINE 02/01/2018 2:03 PM [facility] REPOSITORY TYPE CODE TESTS RESULT OUT OF RANGE REFERENCE UNITS LAB L501.1200 NO RANGE EST. mg/dL Normal UR CREAT 108.00 LAB L501.1930 <11.9 mg/dL High 88.9 PROTEIN,UR.R AN. LAB L501.1940 0-200 mg/g CRE High PROT:CRE 823 RATIO Performed By: #### L501.0900 #### [facility] [address] [facility] [place], [place], [address] ANTINUCLEAR ANTIBODY, Collected: 02/01/2018 Status: F Source: INGE IFA 2:03 [facility] REPOSITORY TYPE CODE TESTS RESULT OUT OF RANGE REFERENCE UNITS LAB L3100.8000 . Normal ANTHONY Negative test Result Comment: Negative <1:80 Borderline 1:80 Positive >1:80 Speckled cytoplasmic fluorescence is present. The antibodies noted in this pattern may be associated with, but not restricted to, primary biliary cirrhosis (PBC), polymyositis and dermatomyositis (PM/DM), and/or systemic lupus erythematosus (SLE). Performed at: - [facility] [id number] Acid Patroller: Harjit Tim PhD, Phone: [phone] Performed By: #### L3100.7950 #### [facility] (refer to report for specific site) refer to report for address and phone number CBC Collected: 11/16/2017 Status: F Source: [facility] 10:40 AM [facility] REPOSITORY TYPE CODE TESTS RESULT OUT OF [...] ANEU, LIPID, CMP, GFR, FT4, TSH #### [facility] [address] [place] [address] #### [facility] #### [address] [address] .AUTO DIFF Collected: 11/16/2017 Status: F Source: [facility] 10:40 AM [facility] REPOSITORY TYPE CODE TESTS RESULT OUT OF [...] ANEU, LIPID, CMP, GFR, FT4, TSH #### [address] [address] #### VIDH #### [facility] [address] [place] [address] .NEUABS Collected: 11/16/2017 Status: F Source: [facility] 10:40 AM [facility] REPOSITORY TYPE CODE TESTS RESULT OUT OF REFERENCE UNITS RANGE LAB ANEU(LOINC) 2.85-6.16 10 3/mcL Neutrophil, 4.40 Absolute Performed By: #### CBC, ADIFF, ANEU, LIPID, CMP, GFR, FT4, TSH #### [address] [address] #### VIDH #### [facility] [address] [place] [address] LIPID Collected: 11/16/2017 Status: F Source: [facility] 10:40 AM [facility] REPOSITORY TYPE CODE TESTS RESULT OUT OF [...] ANEU, LIPID, CMP, GFR, FT4, TSH #### [facility] [address] [place], [place] [address] #### VIDH #### [address] [address] CMP Collected: 11/16/2017 Status: F Source: [facility] 10:40 AM [facility] REPOSITORY TYPE CODE TESTS [...] GFR, FT4, TSH #### [facility] [address] [place], [place] [address] #### [facility] #### [address] [address] .GFR Collected: 11/16/2017 Status: F Source: [facility] 10:40 AM [facility] REPOSITORY TYPE CODE TESTS RESULT OUT OF REFERENCE UNITS RANGE LAB GFRAA(LOINC ml/min/1.73 ) sqm GFR 49 Barbadian Result Comment: GFR Population mean for , [...] ANEU, LIPID, CMP, GFR, FT4, TSH #### [address] [address] #### [facility] #### [place] [address] FT4 Collected: 11/16/2017 Status: F Source: [facility] 10:40 AM [facility] REPOSITORY TYPE CODE TESTS RESULT OUT OF RANGE REFERENCE UNITS LAB FT4(LOINC) 0.6-1.7 ng/mL Free T4 1.0 Performed By: #### CBC, ADIFF, ANEU, LIPID, CMP, GFR, FT4, TSH #### [address] [address] #### V[facility] #### [place] [address] TSH Collected: 11/16/2017 Status: F Source: [facility] 10:40 AM [facility] REPOSITORY TYPE CODE TESTS RESULT OUT OF RANGE REFERENCE UNITS LAB TSH(LOINC) 0.27-4.20 mcIU/mL High TSH 5.14 Result Comment: Above normal(expected)range Performed By: #### CBC, ADIFF, ANEU, LIPID, CMP, GFR, FT4, TSH #### [address] [address] #### V[facility]H #### [place] [address] VIDH Collected: 11/16/2017 Status: F Source: [facility] 10:40 AM [facility] REPOSITORY TYPE CODE TESTS RESULT OUT OF RANGE REFERENCE UNITS LAB VIDH(LOINC) ng/mL Vit. D 56 25-Hydroxy Result Comment: Interpretive Values Based on Total 25(OH)D: Severe Deficiency <20 ng/mL Mild to Moderate Deficiency 20-30 ng/mL Optimum Levels 30-100 ng/mL Toxicity Possible >100 ng/mL Performed By: #### CBC, ADIFF, ANEU, LIPID, CMP, GFR, FT4, TSH #### [address] [address] #### VIDH #### [place] [address] ALLERGIES ALLERGIES DATE TYPE / CODE NAME / CODE REACTION SEVERITY SOURCE 07/07/2018 Drug Penicillins/F Anaphylaxis Unknown [facility] [id number](RXN Hospital 465857(SN ORM) Repository ED CT) 07/07/2018 Drug acetaminophen Vomiting Unknown [facility] All[facility]/416 /[id number](R Hospital 431131(SNOM XNORM) Repository ED CT) 07/07/2018 Drug orange Hives Unknown [facility]/416 juice/[id number] Hospital 652544(SNOM 513(RXNORM) Repository ED CT) 07/07/2018 Drug strawberry/F0 Hives Unknown [facility]/416 76039298(RXNO Hospital 542759(SNOM RM) Repository ED CT) 07/07/2018 Drug Sulfa Vomiting Unknown [facility]ergy/416 (Sulfonamide Hospital 821712([facility] Antibiotics)/ Repository ED CT) [id number](RX NORM) ENCOUNTERS ENCOUNTERS ADMIT/DISCHARGE ACCOUNT NUMBER ADMITTING ENCOUNTER LOCATION SOURCE CLASS 10/04/2018 [id number] [facility] ding:OLS.ACH Repository 09/27/2018 [id number] [facility] ding:OLS.ACH Repository 09/20/2018 [id number] [facility] ding:OL[place] Repository 09/14/2018 [id number] [facility] ding:OLS.ACH Repository 09/05/2018 [id number] [facility] ding:[place] Repository 08/30/2018 [id number] [facility] ding:[place] Repository 08/23/2018 [id number] [facility] ding:OLS.ACH Repository 08/18/2018/08/18/20 [id number] Ambulatory BBuilding:RA Owen [address] [place] [address] Repository 08/16/2018 [id number] [facility] ding:OLS.ACH Repository 08/09/2018 [id number] [facility] ding:[place] Repository 08/02/2018 [id number] [facility] ding:[place] Repository 07/26/2018 [id number] Ambulatory [facility] ding:OLS.[place] Repository 07/19/2018 [id number] Ambulatory [facility] ding:OLS.[place] Repository 07/12/2018 [id number] Ambulatory [facility] ding:OLS.ACH Repository 07/07/2018 [id number] Ambulatory BMSBuilding: [facility] Repository 07/07/2018 [id number] Claudia Cruz Ambulatory BMSBuilding: [facility] Repository 07/07/2018 [id number] Claudia Cruz Ambulatory [facility]: [facility] Repository 07/07/2018 [id number] Claudia Cruz Ambulatory [facility]Building: [facility] Repository 07/07/2018/07/11/20 [id number] Claudia Cruz Ambulatory [address] ding:PCURoom Repository : [id number]: 1 07/07/2018 [id number] Claudia Cruz Ambulatory BMSBuilding: [facility] Repository 07/07/2018 [id number] Claudia Cruz Ambulatory BMSBuilding: [facility] Repository 05/26/2018/05/30/20 [id number] Ambulatory BBuilding:DR Owen [address] [place] [address] Repository 05/24/2018/05/24/20 [id number] Emergency [address] ding:ED Repository 05/19/2018 [id number] Ambulatory [facility] [address] System ([place]) Repository 05/19/2018 [id number] [facility] [place] [address] [place] Repository 04/14/2018/04/19/20 [id number] Ambulatory BMSBuilding: [address] Repository 04/13/2018 [id number] Rodneye, Ambulatory BMSBuilding: [facility] Repository 04/13/2018 [id number] Oleghe, Ambulatory BMSBuilding: [facility] Repository 04/13/2018 [id number] Oleghe, Ambulatory BMSBuilding: [facility] Repository 04/13/2018 [id number] Oleghe, Ambulatory BMSBuilding: [facility] Repository 04/13/2018 [id number] Oleghe, Ambulatory BMSBuilding: [facility] Repository 04/13/2018 [id number] Oleghe, Ambulatory BMSBuilding: [facility] Repository 04/13/2018/04/19/20 [id number] Oleghe, Ambulatory [address] [address] ding:BD7Inyy Repository : [id number]: 1 04/13/2018 [id number] Oleghe, Ambulatory BMSBuilding: Inge Ifijen BMS.[facility] Repository 03/19/2018 [id number] Emergency Buildin[address] [place] [address] ERRoom: System [id number]: Repository [id number] 03/18/2018/03/19/20 [id number] Ambulatory BMSBuilding: [address] Repository 03/18/2018/03/19/20 [id number] Ambulatory BMSBuilding: [address] Repository 03/18/2018 [id number] Claudia Cruz Ambulatory BMSBuilding: [facility] Repository 03/18/2018/03/19/20 [id number] Claudia Cruz Inpatient [facility] [address] ding:PCURoom Repository : [id number]: 1 02/24/2018/02/29/20 [id number] Ambulatory [address] ding:DROP [facility] Repository 02/03/2018/02/04/20 [id number] Ambulatory [address] ding:RAD Foundation Repository 02/01/2018 [id number] Ambulatory [facility] ding:POLAB3 Repository 11/16/2017/11/21/19 [id number] Ambulatory [address] ding:[facility] Repository PAYERS PAYERS ENCOUNTER GUARANTOR PAYER SUBSCRIBER SOURCE 10/04/2018 NO J Primary NOT GIVENUNK [facility] [id number] Insurance:SELF PAY [facility] RDAPOSTOLIC Number: Effective Repository PROTESTANT Date:2018-10-04 [place], [place] [address]Jhi: () 09/27/2018 NO J Primary NOT GIVENUNK Inge [id number] Insurance:SELF PAY [facility] RDAPOSTOLIC Number: Effective Repository PROTESTANT Date:2018-09-27 [place], [place] [address]Sgz: () 09/20/2018 NO J Primary NO J [facility] [id number] Insurance:MYCARE CRSC HOFSTETTERDOB: Community ERNESTINA *IN [facility] 5030-12-38ULG Hospital RDAPOSTOLIC Number: Repository PROTESTANT [id number] [place] Date:6394-66-82QCZY 269[address]Pyh: (083) CLAIMS [phone] () [address], [place] [address]BA: 09/20/2018 Secondary NOT GIVENUNK Inge Insurance:SELF PAY [facility] Number: Effective Repository Date:2018-09-20 09/14/2018 NO J Primary NO J [facility] [id number] Insurance:MYCARE CRSC HOFSTETTERDOB: Community ERNSETINA *IN [facility] [id number] Hospital RDAPOSTOLIC Number: Repository PROTESTANT [id number] [place] Date:0391-71-54EVKF [address]Tbc: (502) CLAIMS [phone] () [address], [place] [address]PQ: 09/14/2018 Secondary NOT GIVENUNK Inge Insurance:SELF PAY [facility] Number: Effective Repository Date:2018-09-14 09/05/2018 NO J Primary NO J Inge [id number] Insurance:MYCARE CRSC HOFSTETTERDOB: Community ERNESTINA *IN [facility] [id number] Hospital RDAPOSTOLIC Number: Repository PROTESTANT [id number] [place] Date:2361-05-64JADQ [address]Dxl: (330) CLAIMS [phone] (HP) [address] [address]IS: 09/05/2018 Secondary NOT GIVENUNK Inge Insurance:SELF PAY [facility] Number: Effective Repository Date:2018-09-05 08/30/2018 NO J Primary NO J [facility] [id number] Insurance:MYCARE CRSC HOFSTETTERDOB: Community ERNESTINA *IN [facility] [id number] Hospital RDAPOSTOLIC Number: Repository PROTESTANT [id number] [place] Date:1133-27-46HTKW [address]Kiv: (330) CLAIMS [phone] (HP) [address] [address]HK: 08/30/2018 Secondary NOT GIVENUNK [facility] Insurance:SELF PAY [facility] Number: Effective Repository Date:2018-08-30 08/23/2018 [facility] [id number] Insurance:MYCARE CRSC HOFSTETTERDOB: Community ERNESTINA *IN [facility] [id number] Hospital RDAPOSTOLIC Number: Repository PROTESTANT [id number] [place] Date:8578-26-91TOMQ [address]Hum: (330) CLAIMS [phone] (HP) [address] [address]GS: 08/23/2018 Secondary NOT GIVENUNK [facility] Insurance:SELF PAY [facility] Number: Effective Repository Date:2018-08-23 08/18/2018 [facility] Primary [facility] HealthcareFSTETTERDOB: Insurance:[facility]ETTERDOB: [facility] [id number] [facility] [place] [id number] Repository ernestina [facility] Number: [address] [place], [place] [id number] [place], [place] [address]Icf: (330) Date:2018-08-1779140Inz: (HP) 0323-23-85Sbcf [id number] Name:NATTN Claims ()Tel: (000) DeptPO [address] (WP) 30[place], [place] [address]HB: 08/18/2018 Secondary [place] [facility] Insurance:MEDICARE HOTETTERDOB: [facility] PART B [facility] [id number] Repository Number: [address] [id number], [place] Date:2018-08-1862176Kon: 330 2355-09-16Hsrn [id number] Name:PCGS ()Tel: (000) Administrators LLCPO 000-0000 (WP) [address] [place] [address] 16133CB: 08/16/2018 NO J Primary NO J Inge [id number] Insurance:MYCARE CRS HOFSTETTERDOB: [facility] *IN [place] 435941-05-25[place], [place] Number: Repository [address]Bcn: 330 [id number] [phone] () Date:5037-61-06OUZX CLAIMS DEPTPO [address] [place] [address]KH: 08/16/2018 Secondary NOT GIVENUNK Inge Insurance:SELF PAY [facility] Number: Effective Repository Date:2018-08-16 08/09/2018 NO J Primary NO J Inge [id number] Insurance:MYCARE CRS HOFSTETTERDOB: [facility] *IN [facility] 2522-43-20FJMTem[place] Number: Repository [address]Enn: 330 [id number] [phone] () Date:2203-41-00VODP CLAIMS DEPTPO [address] [place] [address]WH: 08/09/2018 Secondary NOT GIVENUNK Inge Insurance:SELF PAY [facility] Number: Effective Repository Date:2018-08-09 08/02/2018 NO J Primary NO J Inge [id number] Insurance:MYCARE CRSC HOFSTETTERDOB: Community SHAYE *IN [facility] 2791-02-10NVUTemple [place], [place] Number: Repository [address]Tlk: 330 [id number] [phone] (HP) Date:3471-32-64ROKC CLAIMS [facility] [address] [place] [address]SV: 08/02/2018 Secondary NOT GIVENUNK [facility] Insurance:SELF PAY [facility] Number: Effective Repository Date:2018-08-02 07/26/2018 NO J Primary NO J [facility] [id number] Insurance:MYCARE CRSC HOFSTETTERDOB: Community SHAYE *IN [facility] 1765-50-02[place]YL[place] Number: Repository [address]Fxz: 330 [id number] [phone] (HP) Date:8022-50-81PMQX CLAIMS [facility] [address] [address]HY: 07/26/2018 Secondary NOT GIVENUNK [facility] Insurance:SELF PAY [facility] Number: Effective Repository Date:2018-07-26 07/19/2018 NO J Primary NOT GIVENUNK [facility] [id number] Insurance:SELF [place]Y [place] Number: Effective Repository [id number]: 330) Date:2018-07-19 [phone] () 07/12/2018 NO J Primary NO J Inge [id number] Insurance:MYCARE CRSC HOFSTETTERDOB: Community SHAYE *IN [facility] 8733-40-47RWMTemple [place], [place] Number: Repository [address]Xki: 330 [id number] [phone] (HP) Date:7387-14-20MUFM CLAIMS DEPT[address] [place] [address]NC: 07/12/2018 Secondary NOT GIVENUNK Inge Insurance:SELF PAY [facility] Number: Effective Repository Date:2018-07-12 07/07/2018 NO J Primary NO J [facility] [id number] Insurance:MYCARE CRSC HOFSTETTERDOB: Community SHAYE *IN [facility] 5653-21-01NGCTemple [place], [place] Number: Repository [address]Twt: 330 [id number] [phone] (HP) Date:9553-04-60VINP CLAIMS [address] [place] [address]OU: 07/07/2018 Secondary NOT GIVENUNK Inge Insurance:SELF PAY [facility] Number: Effective Repository Date:2018-07-07 07/07/2018 NO J Primary NO J Inge [id number] Insurance:MYCARE CRSC HOFSTETTERDOB: Community SHAYE *IN [facility] 1172-14-20EMSTemple [place], [place] Number: Repository [address]Plt: 330 [id number] [phone] (HP) Date:1917-84-34XMPV CLAIMS [address] [place] [address]WC: 07/07/2018 Secondary NOT GIVENUNK Inge Insurance:SELF PAY [facility] Number: Effective Repository Date:2018-07-07 07/07/2018 NO J Primary NO J Inge [id number] Insurance:MYCARE CRSC HOFSTETTERDOB: Community SHAYE *IN [facility] 3775-74-52PVX[place] Number: Repository [address]Zec: 330 [id number] [phone] (HP) Date:4122-96-61JQCE CLAIMS [address], [place] [address]NV: 07/07/2018 Secondary NOT GIVENUNK Inge Insurance:SELF PAY [facility] Number: Effective Repository Date:2018-07-07 07/07/2018 NO J Primary NO J Inge [id number] Insurance:MYCARE CRSC HOFSTETTERDOB: Community [place] *IN [facility] 9161-05-58ZKSTemple [place], [place] Number: Repository [address]Vqk: 330 [id number] [phone] (HP) Date:3834-08-24MJQJ CLAIMS [address]PTPO [address] [place] [address]MN: 07/07/2018 Secondary NOT GIVENUNK [facility] Insurance:SELF PAY [facility] Number: Effective Repository Date:2018-07-07 07/07/2018 NO J Primary NO J Inge [id number] Insurance:MYCARE CRSC HOFSTETTERDOB: [facility] *IN [facility] 4652-08-14OPX[place] Number: Repository [address]Oek: 330 [id number] [phone] (HP) Date:7949-32-37MJWC CLAIMS DEPT[address] [place] [address]UF: 07/07/2018 Secondary NOT GIVENUNK [facility] Insurance:SELF PAY [facility] Number: Effective Repository Date:2018-07-07 07/07/2018 NO J Primary NO J [facility] [id number] Insurance:MYCARE CRSC HOFSTETTERDOB: [facility] *IN [facility] 4113-08-51ZWYTem[place], [place] Number: Repository [address]Huo: 330 [id number] [phone] (HP) Date:7840-27-22CJOK CLAIMS [address] [place] [address]UD: 07/07/2018 Secondary NOT GIVENUNK [facility] Insurance:SELF PAY [facility] Number: Effective Repository Date:2018-07-07 07/07/2018 NO J Primary NO J Inge [id number] Insurance:MYCARE CRSC HOFSTETTERDOB: Community [place] *IN [facility] 2013-15-83[place] Number: Repository [address]Gda: 330 [id number] [phone] (HP) Date:2307-44-54XBPY CLAIMS [address] [place] [address]GE: 07/07/2018 Secondary NOT GIVENUNK [facility] Insurance:SELF PAY [facility] Number: Effective Repository Date:2018-07-07 05/26/2018 NO J Primary [facility]TETTERDOB: Insurance:[facility]ITALERB: [facility] [id number] [facility] [id number] Repository [facility] Number: [address] [facility] [address]Vmf: [id number] [place] Date:2017-03-27 [address]Qnz: (793) (HP)Tel: ([phone]) 3752-06-77Gzuo [phone] (WP) Name:NATTN Claims (HP)Tel: 000) DeptPO [phone] (WP) [address] [place] [address] 61340CT: 05/24/2018 NO J Primary NO J [facility] [id number] Insurance:MYCARE CRSC HOFSTETTERDOB: Community HERITAGE *IN [facility] 7468-91-23[place], [place] Number: Repository [address]Dre: 330 [id number] [phone] (HP) Date:7608-26-00HNIK CLAIMS DEPTPO [address] [place] [address]JI: 05/24/2018 Secondary NOT GIVENUNK Inge Insurance:SELF PAY [facility] Number: Effective Repository Date:2018-05-24 04/14/2018 NO J Primary NO J Inge [id number] Insurance:MYCARE CRSC HOFSTETTERDOB: Community HERITAGE *IN [facility] 1267-61-86MAPNew[place], [place] Number: Repository [address]Liz: 330 [id number] [phone] (HP) Date:8461-74-75OBKT CLAIMS [facility] [address] [address]OR: 04/14/2018 Secondary NOT GIVENUNK [facility] Insurance:SELF PAY [facility] Number: Effective Repository Date:2018-04-14 04/13/2018 NO J Primary NO J [facility] [id number] Insurance:MYCARE CRSC HOFSTETTERDOB: Community HERITAGE *IN [facility] 1836-91-22KOFNew[place], [place] Number: Repository [address]Fhz: 330 [id number] [phone] () Date:8537-17-63XMMD CLAIMS [facility] [address] [address]VP: 04/13/2018 Secondary NOT GIVENUNK Inge Insurance:SELF PAY [facility] Number: Effective Repository Date:2018-04-13 04/13/2018 NO J Primary NO J [facility] [id number] Insurance:MYCARE CRSC HOFSTETTERDOB: Community HERITAGE *IN [facility] 1801-65-11XMQ[place], [place] Number: Repository [address]Zys: 330 [id number] [phone] () Date:9607-43-67AELV CLAIMS [facility] [address] [address]GK: 04/13/2018 Secondary NOT GIVENUNK Inge Insurance:SELF PAY [facility] Number: Effective Repository Date:2018-04-13 04/13/2018 NO J Primary NO J [facility] [id number] Insurance:MYCARE CRSC HOFSTETTERDOB: Community HERITAGE *IN [facility] 2363-90-26KDENew[place], [place] Number: Repository [address]Guj: 330 [id number] [phone] (HP) Date:8965-70-39QMJX CLAIMS [address], [place] [address]EI: 04/13/2018 Secondary NOT GIVENUNK [facility] Insurance:SELF PAY [facility] Number: Effective Repository Date:2018-04-13 04/13/2018 NO J Primary NO J [facility] [id number] Insurance:MYCARE CRSC HOFSTETTERDOB: Community HERITAGE *IN [facility] 4415-78-52CNHNew[place], [place] Number: Repository [address]Txf: 330 [id number] [phone] (HP) Date:2700-92-58QIFP CLAIMS DEPT[address] [place] [address]CT: 04/13/2018 Secondary NOT GIVENUNK [facility] Insurance:SELF PAY [facility] Number: Effective Repository Date:2018-04-13 04/13/2018 NO J Primary NO J Inge [id number] Insurance:MYCARE CRSC HOFSTETTERDOB: Community HERITAGE *IN [facility] 4229-38-74GLENewhall, [place] Number: Repository [address]Huo: 330 [id number] [phone] (HP) Date:8084-09-76BMLY CLAIMS [address], [place] [address]DQ: 04/13/2018 Secondary NOT GIVENUNK [facility] Insurance:SELF PAY [facility] Number: Effective Repository Date:2018-04-13 04/13/2018 NO J Primary NO J [facility] [id number] Insurance:MYCARE CRSC HOFSTETTERDOB: Community HERITAGE *IN [facility] [id number] [place] [address] Number: Repository [address]Kvh: 330 [id number] [phone] (HP) Date:2026-13-59PWEE CLAIMS [address], [place] [address]NH: 04/13/2018 Secondary NOT GIVENUNK [facility] Insurance:SELF PAY [facility] Number: Effective Repository Date:2018-04-13 04/13/2018 NO J Primary NO J Inge [id number] Insurance:MYCARE CRSC HOFSTETTERDOB: Community HERITAGE *IN [facility] 3041-92-99RNC[place], [place] Number: Repository [address]Sxo: (093) [id number] [phone] () Date:7618-27-08BJVN CLAIMS [address]PTPO [address] [place] [address]DK: 04/13/2018 Secondary NOT GIVENUNK Inge Insurance:SELF PAY [facility] Number: Effective Repository Date:2018-04-13 04/13/2018 NO J Primary NO J [facility] [id number] Insurance:MYCARE CRSC HOFSTETTERDOB: Community HERITAGE *IN [facility] 3255-14-87WKG[place], [place] Number: Repository [address]Obh: (953) [id number] [phone] () Date:2263-68-29KFCN CLAIMS [address]PT[address] [place] [address]XB: 04/13/2018 Secondary NOT GIVENUNK Inge Insurance:SELF PAY [facility] Number: Effective Repository Date:2018-04-13 03/19/2018 [place] Primary [facility] HofstetterDOB: Insurance:MedicarePol HofstetterDOB: System [id number] icy Number: Effective [id number] Repository [place], [place] Date: [address]Ujo: () 03/19/2018 Secondary [facility] Insurance:MedicarePol HofstetterDOB: System icy Number: Effective [id number] Repository Date: 03/19/2018 Tertiary [facility] Insurance:MedicaidPol HofstetterDOB: System icy Number: Effective [id number] Repository Date: 03/18/2018 NO J Primary NO J [facility] [id number] Insurance:MEDICARE HOFSTETTERDOB: Community HERITAGE PART A [facility] [id number], [place] Number: Repository [address]Imn: 330 [id number] [phone] () Date:2018-03-17 03/18/2018 Secondary NO J Inge Insurance:MEDICAIDPol HOFSTETTERDOB: Community icy Number: [id number] Hospital [id number] Repository Date:2018-03-17 03/18/2018 Tertiary NOT GIVENUNK [facility] Insurance:SELF PAY [facility] Number: Effective Repository Date:2018-03-18 03/18/2018 NO J Primary ON J Inge [id number] Insurance:MEDICARE HOFSTETTERDOB: Community HERITAGE PART A [facility] [id number] [place] Number: Repository [address]Xeb: 330 [id number] [phone] () Date:2018-03-17 03/18/2018 Secondary NO J Inge Insurance:MEDICAIDPol HOFSTETTERDOB: Community icy Number: [id number] Hospital [id number] Repository Date:2018-03-17 03/18/2018 Tertiary NOT GIVENUNK Inge Insurance:SELF PAY [facility] Number: Effective Repository Date:2018-03-17 03/18/2018 NO J Primary NO J Inge [id number] Insurance:MEDICARE HOFSTETTERDOB: Community HERITAGE PART A [facility] [id number] [place] Number: Repository [address]Ihq: 330 [id number] [phone] () Date:2018-03-17 03/18/2018 Secondary NO J [facility] Insurance:MEDICAIDPol HOFSTETTERDOB: Community icy Number: [id number] Hospital [id number] Repository Date:2018-03-17 03/18/2018 Tertiary NOT GIVENUNK [facility] Insurance:SELF PAY [facility] Number: Effective Repository Date:2018-03-18 03/18/2018 NO J Primary NO J [facility] [id number] Insurance:MEDICARE HOFSTETTERDOB: [facility] HERITAGE PART A BPolicy [id number], [place] Number: Repository [address]Jwi: 330 [id number] [phone] (HP) Date:2018-03-17 03/18/2018 Secondary NO J [facility] Insurance:MEDICAIDEncompass Health Rehabilitation Hospital of YorkTETTERDOB: [facility] icy Number: [id number] Hospital [id number] Repository Date:2018-03-17 03/18/2018 Tertiary NOT GIVENUNK [facility] Insurance:SELF PAY [facility] Number: Effective Repository Date:2018-03-17 02/24/2018 NO J Primary [facility] HospitalTETTERDOB: Insurance:MEDICARE CONE HEALTHERDOB: [facility] [id number] PART BPolicy Number: [id number] Repository MIGUEL ANGELALYSSIA RINCON, [id number] [address] [facility] [address]Bak: Date:2018-02-24 - [place], [place] 0484-65-90Pdcl [address]Oou: (419) (HP)Tel: (801) Name:[facility] [id number] [phone] (WP) Administrators LLCPO (HP)Tel: (000) [address]Jietdydvj, 000-0000 (WP) [place] [address]GT: 02/24/2018 Secondary [facility] Insurance:[facility] HOSPITALERDOB: [facility] [id number] Repository MCAIDPolicy Number: 42 MIGUEL ANGEL [id number] [facility] HOSPITALJAY JAYMCINTOSH, [place] Date:2018-02-24 [address]Tly: (045) 3229-54-31Pfmq [phone] Name:Bal Burleson (HP)Tel: [phone]) [address], [place] 000-0000 (WP) [address]PH: 02/03/2018 [facility] Primary [facility] HospitalTETTDOB: Insurance:MEDICARE [facility] HOSPITALTETTERDOB: [facility] [id number] PART BPolicy Number: [id number] Repository MIGUEL ANGELALYSSIA RINCON, [id number] [address] [facility] [address]Dph: Date:2018-02-01 - [place] 7552-03-40Vuqx [address]Nee: (330) (HP)Tel: (999) Name:[address]94 [phone] (WP) Administrators LLCPO (HP)Tel: (000) [address]Zaunckwyb, 000-0000 (WP) [place] [address]BX: 02/03/2018 Secondary [facility] Insurance:[facility]OSPITALB: [facility] [id number] Repository [facility] CENTERIDPoluniversity [facility] Number: 42 ADA [id number] [facility] HOSPITALJAY JAYMCINTOSH, [place] Date:2018-02-01 [address]Loe: (571) 1529-20-73Ciby [phone] Name:XCenpaticoPO Box (HP)Tel: ([phone]) 7564[place], [place] 000-0000 (WP) [address]RQ: 02/01/2018 [place]lemar Casper [facility] Insurance:MEDICARE [facility] HENDERSONVILLETTERDOB: [facility] Centerson RdDaltjay jay, PART A BPlifec[facility] [id number] Regional Hospital, [place] [address]Ljv: Number: Repository [id number] () Date:2018-02-01 02/01/2018 Secondary NOT GIVENUNK [facility] Insurance:SELF PAY [facility] Number: Effective Repository Date:2018-02-01 11/16/2017 [facility] Insurance:MEDICARE [facility] HENDERSONVILLETTERDOB: [facility] [id number] PART BPolicy Number: [id number] Repository MIGUEL ANGEL SERGEY, [id number] [address] [facility] [address]Jlx: Date:2017-11-16 - [place] 0815-77-77Zezz [address]Pxw: (330) (HP)Tel: (999) Name:[facility] [phone] (WP) Administrators LLCPO ()Tel: (000) [address]Zvmxfunrw, 000-0000 (WP) [place] [address]US:
== END ==
LOC: OLS.ACH 05:00
PROVIDERS: Visit Provider Family Medicine
DX: I10 Essential (primary) hypertension (principal)
CPT/HCPCS: 36415; 80048

== ENCOUNTER → 2018-10-11 05:00 | Outpatient (REF) | payer MEDICARE, SELFPAY ==
[2018-10-11 07:54] LABS: Anion Gap 7 (5-15); BUN 23 mg/dL (7-18); BUN/Creat Ratio 19.5 RATIO (10-20); Calcium,Total 8.9 mg/dL (8.5-10.1); Chloride 106 mmol/L (98-107); Creatinine, Serum 1.18 mg/dL (0.55-1.02); EST Glomerular Filtration Rate 47 mL/min (>60); Est Glom Filt Rate - Afr Amer 57 mL/min (>60); Glucose 89 mg/dL (74-106); Potassium 4.5 mmol/L (3.5-5.1); Sodium Level 139 mmol/L (136-145)
== END ==
LOC: OLS.ACH 05:00
PROVIDERS: Visit Provider Family Medicine
DX: I10 Essential (primary) hypertension (principal)
CPT/HCPCS: 36415; 80048

== ENCOUNTER → 2018-10-18 05:00 | Outpatient (REF) | payer MEDICARE, SELFPAY ==
[2018-10-18 08:03] LABS: Anion Gap 9 (5-15); BUN 31 mg/dL (7-18); BUN/Creat Ratio 24.8 RATIO (10-20); Calcium,Total 8.7 mg/dL (8.5-10.1); Chloride 105 mmol/L (98-107); Creatinine, Serum 1.25 mg/dL (0.55-1.02); EST Glomerular Filtration Rate 44 mL/min (>60); Est Glom Filt Rate - Afr Amer 53 mL/min (>60); Glucose 133 mg/dL (74-106); Potassium 4.5 mmol/L (3.5-5.1); Sodium Level 140 mmol/L (136-145)
== END ==
LOC: OLS.ACH 05:00
PROVIDERS: Visit Provider Family Medicine
DX: I10 Essential (primary) hypertension (principal)
CPT/HCPCS: 36415; 80048

== ENCOUNTER → 2018-11-01 04:30 | Outpatient (REF) | payer MEDICARE, SELFPAY ==
[2018-11-01 07:19] LABS: Anion Gap 6 (5-15); BUN 26 mg/dL (7-18); BUN/Creat Ratio 21.5 RATIO (10-20); Calcium,Total 8.8 mg/dL (8.5-10.1); Chloride 108 mmol/L (98-107); Creatinine, Serum 1.21 mg/dL (0.55-1.02); EST Glomerular Filtration Rate 46 mL/min (>60); Est Glom Filt Rate - Afr Amer 55 mL/min (>60); Glucose 175 mg/dL (74-106); Potassium 4.9 mmol/L (3.5-5.1); Sodium Level 136 mmol/L (136-145)
== END ==
LOC: OLS.ACH 04:30
PROVIDERS: Visit Provider Family Medicine
DX: I10 Essential (primary) hypertension (principal)
CPT/HCPCS: 36415; 80048

== ENCOUNTER → 2018-11-08 05:00 | Outpatient (REF) | payer MEDICARE, SELFPAY ==
[2018-11-08 08:33] LABS: Hemoglobin A1c 6.4 % (4.2-6.3)
== END ==
LOC: OLS.ACH 05:00
PROVIDERS: Visit Provider Family Medicine
DX: I10 Essential (primary) hypertension (principal); E11.9 Type 2 diabetes mellitus without complications
CPT/HCPCS: 36415; 83036

== ENCOUNTER → 2019-01-02 04:00 | Outpatient (REF) | payer MEDICARE, SELFPAY ==
[2019-01-02 07:56] LABS: Absolute Lymphocyte Count 2.09 X10^3/ul (0.83-4.51); Absolute Neutrophil Count 4.5 X10^3/uL (2.0-7.7); Basophil# 0.04 X10^3/uL; Basophil% 0.5 % (0-1); Eosinophil# 0.43 X10^3/uL; Eosinophils% 5.6 % (0-5); Hematocrit 32.3 % (37-47); Hemoglobin 9.9 g/dl (12.0-15.0); Lymphocyte # 2.09 X10^3/ul (4.0); Lymphocyte % 27.3 % (19-41); Mean Corp Hgb Conc 30.7 g/gl (32-36); Mean Corpuscular Hgb 27.3 pg (27.0-32.0); Mean Platelet Vol. 11.2 fl (6.2-12.0); Monocyte# 0.55 X10^3/uL; Monocyte% 7.2 % (0-10); Neutrophil # 4.53 X10^3/uL (2.7-7.7); Neutrophil % 59.3 % (47-70); Platelet Count 284 K/mm3 (150-450); RBC Distribution Width CV 15.8 % (11.6-14.6); RBC Distribution Width SD 51.3 fl (35.1-43.9); Red Blood Count 3.63 M/mm3 (4.2-5.4); White Blood Count 7.7 K/mm3 (4.4-11.0)
[2019-01-02 08:01] LABS: POSITIVE COUNT NO; POSITIVE DIFFERENTIAL NO; POSITIVE MORPHOLOGY NO
[2019-01-02 08:16] LABS: Anion Gap 7 (5-15); BUN 31 mg/dL (7-18); BUN/Creat Ratio 23.8 RATIO (10-20); Calcium,Total 8.6 mg/dL (8.5-10.1); Chloride 106 mmol/L (98-107); EST Glomerular Filtration Rate 42 mL/min (>60); Est Glom Filt Rate - Afr Amer 51 mL/min (>60); Glucose 112 mg/dL (74-106); Potassium 4.4 mmol/L (3.5-5.1); Sodium Level 139 mmol/L (136-145)
== END ==
LOC: OLS.ACH 04:00
PROVIDERS: Visit Provider Family Medicine
DX: I26.99 Other pulmonary embolism without acute cor pulmonale (principal); D64.9 Anemia, unspecified
CPT/HCPCS: 36415; 80048; 85025

== ENCOUNTER → 2019-01-04 05:00 | Outpatient (REF) | payer MEDICARE, SELFPAY ==
[2019-01-04 08:01] LABS: Ferritin 66 ng/mL (8-252); Iron 48 ug/dL (50-170); Iron Binding Capacity,Total 255 ug/dL (250-450); PERCENT IRON SATURATION 18.8 % (15.0-55.0)
[2019-01-04 08:15] LABS: Vitamin B12 1289 pg/mL (211-911)
[2019-01-05 16:06] LABS: PROEL- A/G Ratio 0.8 (0.7-1.7); PROEL- Albumin 2.9 g/dL (2.9-4.4); PROEL- Alpha-1 Globulin 0.2 g/dL (0.0-0.4); PROEL- Alpha-2 Globulin 0.8 g/dL (0.4-1.0); PROEL- Gamma Globulin 1.5 g/dL (0.4-1.8); PROEL- Globulin, Total 3.5 g/dL (2.2-3.9); PROEL- TOTAL PROTEIN 6.4 g/dL (6.0-8.5)
== END ==
LOC: OLS.ACH 05:00
PROVIDERS: Visit Provider Family Medicine
DX: D64.9 Anemia, unspecified (principal)
CPT/HCPCS: 36415; 82607; 82728; 82746; 83540; 83550; 84165

== ENCOUNTER → 2019-02-07 | Outpatient (REF) | payer MEDICARE, SELFPAY ==
[2019-02-07 07:47] LABS: Cholesterol 138 mg/dL (200); High Density Lipoprotein 46 mg/dL; Thyroid Stim Hormone (TSH) 1.69 uIU/mL (0.358-3.74); Triglycerides 114 mg/dL; Very Low Density Lipoprotein 23 mg/dL (5-40)
== END | disposition home or self-care (01) ==
LOC: OLS.ACH 05:00
PROVIDERS: Visit Provider Family Medicine
DX: E78.00 Pure hypercholesterolemia, unspecified (principal); M62.81 Muscle weakness (generalized)
CPT/HCPCS: 36415; 80061; 84443

== ENCOUNTER → 2019-03-01 05:00 | Outpatient (REF) | payer MEDICARE, SELFPAY ==
[2019-03-01 09:37] LABS: Hemoglobin A1c 6.5 % (4.2-6.3)
== END ==
LOC: OLS.ACH 05:00
PROVIDERS: Visit Provider Family Medicine
DX: E11.9 Type 2 diabetes mellitus without complications (principal)
CPT/HCPCS: 36415; 83036

== ENCOUNTER → 2019-04-04 10:00 | Outpatient (REF) | payer MEDICARE, SELFPAY ==
[2019-04-04 11:29] LABS: Anion Gap 4 (5-15); BUN 28 mg/dL (7-18); BUN/Creat Ratio 18.8 RATIO (10-20); Chloride 102 mmol/L (98-107); Creatinine, Serum 1.49 mg/dL (0.55-1.02); EST Glomerular Filtration Rate 36 mL/min (>60); Est Glom Filt Rate - Afr Amer 44 mL/min (>60); Glucose 134 mg/dL (74-106); Potassium 4.8 mmol/L (3.5-5.1); Sodium Level 133 mmol/L (136-145)
[2019-04-04 11:39] LABS: Absolute Lymphocyte Count 2.06 X10^3/uL (0.83-4.51); Basophil# 0.04 X10^3/uL; Basophil% 0.5 % (0-1); Eosinophil# 0.51 X10^3/uL; Eosinophils% 6.1 % (0-5); Hematocrit 34.3 % (37-47); Hemoglobin 10.5 g/dL (12.0-15.0); Lymphocyte # 2.06 X10^3/ul (4.0); Lymphocyte % 24.8 % (19-41); Mean Corp Hgb Conc 30.6 g/dL (32-36); Mean Corpuscular Hgb 27.1 pg (27.0-32.0); Mean Corpuscular Volume 88.4 fL (81-99); Mean Platelet Vol. 10.5 fl (6.2-12.0); Monocyte# 0.65 X10^3/uL; Monocyte% 7.8 % (0-10); NRBC Flagged by Analyzer 0 % (0-5); Neutrophil # 4.99 X10^3/uL (2.7-7.7); Neutrophil % 60.2 % (47-70); Platelet Count 412 K/mm3 (150-450); RBC Distribution Width CV 15.4 % (11.6-14.6); RBC Distribution Width SD 49.6 fl (35.1-43.9); Red Blood Count 3.88 M/mm3 (4.2-5.4); White Blood Count 8.3 K/mm3 (4.4-11.0)
[2019-04-04 11:46] LABS: BNP,B-Type NATRIURETIC PEPTIDE 88.8 pg/mL (0-100)
== END ==
LOC: OLS.ACH 10:00
PROVIDERS: Visit Provider Family Medicine
DX: I25.10 Atherosclerotic heart disease of native coronary artery without angina pectoris (principal); R09.89 Other specified symptoms and signs involving the circulatory and respiratory systems; I13.0 Hypertensive heart and chronic kidney disease with heart failure and stage 1 through stage 4 chronic kidney disease, or unspecified chronic kidney disease; N18.2 Chronic kidney disease, stage 2 (mild)
CPT/HCPCS: 36415; 80048; 83880; 85025

== ENCOUNTER → 2019-04-12 05:45 | Outpatient (REF) | payer MEDICARE, SELFPAY ==
[2019-04-12 08:39] LABS: Anion Gap 7 (5-15); BUN 33 mg/dL (7-18); BUN/Creat Ratio 23.1 RATIO (10-20); Calcium,Total 8.5 mg/dL (8.5-10.1); Chloride 101 mmol/L (98-107); Creatinine, Serum 1.43 mg/dL (0.55-1.02); EST Glomerular Filtration Rate 38 mL/min (>60); Est Glom Filt Rate - Afr Amer 46 mL/min (>60); Glucose 96 mg/dL (74-106); Potassium 4.1 mmol/L (3.5-5.1); Sodium Level 139 mmol/L (136-145)
== END ==
LOC: OLS.ACH 05:45
PROVIDERS: Visit Provider Family Medicine
DX: I44.0 Atrioventricular block, first degree (principal)
CPT/HCPCS: 36415; 80048

== ENCOUNTER → 2019-04-18 05:00 | Outpatient (REF) | payer MEDICARE, SELFPAY ==
[2019-04-18 08:11] LABS: Anion Gap 7 (5-15); BUN 36 mg/dL (7-18); BUN/Creat Ratio 23.5 RATIO (10-20); Calcium,Total 8.8 mg/dL (8.5-10.1); Chloride 104 mmol/L (98-107); Creatinine, Serum 1.53 mg/dL (0.55-1.02); EST Glomerular Filtration Rate 35 mL/min (>60); Est Glom Filt Rate - Afr Amer 42 mL/min (>60); Glucose 101 mg/dL (74-106); Potassium 4.2 mmol/L (3.5-5.1); Sodium Level 139 mmol/L (136-145)
== END ==
LOC: OLS.ACH 05:00
PROVIDERS: Visit Provider Family Medicine
DX: N18.2 Chronic kidney disease, stage 2 (mild) (principal)
CPT/HCPCS: 36415; 80048

== ENCOUNTER → 2019-05-03 05:00 | Outpatient (REF) | payer MEDICARE, SELFPAY ==
[2019-04-26 14:06] VITALS: BMI 36.7
[2019-05-03 09:09] LABS: Anion Gap 8 (5-15); BUN 33 mg/dL (7-18); BUN/Creat Ratio 21.2 RATIO (10-20); Calcium,Total 8.7 mg/dL (8.5-10.1); Chloride 103 mmol/L (98-107); Creatinine, Serum 1.56 mg/dL (0.55-1.02); EST Glomerular Filtration Rate 34 mL/min (>60); Est Glom Filt Rate - Afr Amer 41 mL/min (>60); Glucose 103 mg/dL (74-106); Potassium 4.3 mmol/L (3.5-5.1); Sodium Level 138 mmol/L (136-145)
== END ==
LOC: OLS.ACH 05:00
DX: I44.0 Atrioventricular block, first degree (principal)
CPT/HCPCS: 36415; 80048

== ENCOUNTER → 2019-05-04 | Outpatient (CLI) | payer MEDICARE, SELFPAY ==
[2019-04-26 14:06] VITALS: BMI 36.7
--- NOTE | 2019-05-04 14:12 | STRESSREP ---
Stress Test Report Date: 05/04/2019 Procedure: Pharmacologic stress nuclear imaging study Indications: Chest discomfort Consent: Per the patient Procedure: The patient underwent pharmacologic (Regadenoson) evaluation with a peak heart rate of 105 beats per minute (73% predicted maximal heart rate) and a peak blood pressure of 150/70 mmHg. The baseline ECG demonstrated normal sinus rhythm, nonspecific intraventricular conduction delay. EKG during lexiscan infusion revealed no significant change from baseline. EKG post infusion revealed no significant change from baseline [There were no cardiac dysrhythmias pretest, during pharmacologic infusion, or recovery]. Patient had some chest discomfort prior to Lexiscan infusion. She had some right shoulder discomfort during the test which felt better with massaging it. The examination was discontinued secondary to completion of protocol. Impression: 1. Lexiscan stress test test is negative for Lexiscan infusion induced EKG changes of ischemia. 2. Lexiscan stress test test is negative for Lexiscan infusion induced chest pain. 3. Results of the nuclear portion of the test is as below Myocardial perfusion imaging study: Technique: The patient was injected with 12 millicuries of technetium 99m Cardiolite and subsequently rest SPECT Cardiolite nuclear imaging was obtained in the horizontal long, vertical long, and short axis views. The patient underwent pharmacologic (Regadenoson) evaluation. Please see above for details. The patient was injected with 36 millicuries of technetium 99m Cardiolite and subsequently stress SPECT Cardiolite nuclear imaging was obtained in the horizontal long, vertical long, and short axis views. A gated Cardiolite study at peak stress was obtained. Interpretation: Rest and stress SPECT Cardiolite nuclear imaging status post realignment, normalization, and attenuation correction demonstrate overall uniform myocardial radioisotope uptake. Gated images reveal no significant regional wall motion abnormalities. The reported LVEF is 70 %. Impression: 1. There is no evidence of significant ischemia or infarction. 2. Estimated ejection fraction is 70%. This note was generated with [employer] software. It may contain incorrect words, spelling, and punctuation that were not noted in checking the note before signing.
== END | disposition home or self-care (01) ==
LOC: CVS 11:21
PROVIDERS: Family Provider Family Medicine; PCP Family Medicine; Referring Provider Specialist; Visit Provider Specialist
DX: R07.9 Chest pain, unspecified (principal)
CPT/HCPCS: 78452; 93017; A9500; A4216; J2785

== ENCOUNTER → 2019-05-09 12:00 | Outpatient (REF) | payer MEDICARE, SELFPAY ==
[2019-04-26 14:06] VITALS: BMI 36.7
[2019-05-09 13:08] LABS: Absolute Lymphocyte Count 1.41 X10^3/uL (0.83-4.51); Absolute Neutrophil Count 5.2 X10^3/uL (2.0-7.7); Basophil# 0.04 X10^3/uL; Basophil% 0.5 % (0-1); Eosinophil# 0.37 X10^3/uL; Eosinophils% 4.9 % (0-5); Hematocrit 36.2 % (37-47); Hemoglobin 11.2 g/dL (12.0-15.0); Lymphocyte # 1.41 X10^3/ul (4.0); Lymphocyte % 18.7 % (19-41); Mean Corp Hgb Conc 30.9 g/dL (32-36); Mean Corpuscular Hgb 27.8 pg (27.0-32.0); Mean Corpuscular Volume 89.8 fL (81-99); Mean Platelet Vol. 11.4 fl (6.2-12.0); Monocyte% 6.6 % (0-10); NRBC Flagged by Analyzer 0 % (0-5); Platelet Count 309 K/mm3 (150-450); RBC Distribution Width CV 16.1 % (11.6-14.6); RBC Distribution Width SD 53.6 fl (35.1-43.9); Red Blood Count 4.03 M/mm3 (4.2-5.4); White Blood Count 7.5 K/mm3 (4.4-11.0)
[2019-05-09 13:22] LABS: ALB/GLOB Ratio 0.7 RATIO (0.9-2.4); AST(SGOT) 17 U/L (15-37); Alanine Aminotransfer ALT/SGPT 18 U/L (13-56); Albumin, Serum 3.5 g/dL (3.2-5.0); Alkaline Phosphatase 107 U/L (45-117); Anion Gap 5 (5-15); BUN 33 mg/dL (7-18); BUN/Creat Ratio 19.6 RATIO (10-20); Calcium,Total 9.3 mg/dL (8.5-10.1); Chloride 101 mmol/L (98-107); Creatinine, Serum 1.68 mg/dL (0.55-1.02); EST Glomerular Filtration Rate 31 mL/min (>60); Est Glom Filt Rate - Afr Amer 38 mL/min (>60); Globulin 4.8 g/dL (2.2-4.2); Glucose 96 mg/dL (74-106); Potassium 4.3 mmol/L (3.5-5.1); Protein, Total 8.3 g/dL (6.4-8.2); Sodium Level 135 mmol/L (136-145)
== END ==
LOC: OLS.ACH 12:00
PROVIDERS: Visit Provider Family Medicine
DX: R11.0 Nausea (principal)
CPT/HCPCS: 36415; 80053; 85025

== ENCOUNTER → 2019-06-05 05:00 | Outpatient (REF) | payer MEDICARE, SELFPAY ==
[2019-05-24 14:58] VITALS: BMI 36.7
[2019-06-05 09:33] LABS: Hemoglobin A1c 6.1 % (4.2-6.3)
== END ==
LOC: OLS.ACH 05:00
PROVIDERS: Visit Provider Family Medicine
DX: E11.9 Type 2 diabetes mellitus without complications (principal)
CPT/HCPCS: 36415; 83036

== ENCOUNTER → 2019-06-13 11:40 | Outpatient (REF) | payer MEDICARE, SELFPAY ==
[2019-05-24 14:58] VITALS: BMI 36.7
[2019-06-13 12:22] LABS: Absolute Lymphocyte Count 1.15 X10^3/uL (0.83-4.51); Absolute Neutrophil Count 7.2 X10^3/uL (2.0-7.7); Basophil# 0.04 X10^3/uL; Basophil% 0.4 % (0-1); Eosinophils% 4.3 % (0-5); Hematocrit 34.5 % (37-47); Hemoglobin 10.6 g/dL (12.0-15.0); Lymphocyte # 1.15 X10^3/ul (4.0); Lymphocyte % 12.2 % (19-41); Mean Corp Hgb Conc 30.7 g/dL (32-36); Mean Corpuscular Hgb 27.7 pg (27.0-32.0); Mean Corpuscular Volume 90.3 fL (81-99); Mean Platelet Vol. 10.1 fl (6.2-12.0); Monocyte# 0.56 X10^3/uL; NRBC Flagged by Analyzer 0 % (0-5); Neutrophil % 76.7 % (47-70); Platelet Count 310 K/mm3 (150-450); RBC Distribution Width CV 16.2 % (11.6-14.6); RBC Distribution Width SD 53.6 fl (35.1-43.9); Red Blood Count 3.82 M/mm3 (4.2-5.4); White Blood Count 9.4 K/mm3 (4.4-11.0)
[2019-06-13 12:32] LABS: Anion Gap 3 (5-15); BUN 31 mg/dL (7-18); BUN/Creat Ratio 19.9 RATIO (10-20); Chloride 100 mmol/L (98-107); Creatinine, Serum 1.56 mg/dL (0.55-1.02); EST Glomerular Filtration Rate 34 mL/min (>60); Est Glom Filt Rate - Afr Amer 41 mL/min (>60); Glucose 91 mg/dL (74-106); Potassium 4.5 mmol/L (3.5-5.1); Sodium Level 134 mmol/L (136-145)
== END ==
LOC: OLS.ACH 11:40
PROVIDERS: Visit Provider Family Medicine
DX: R42 Dizziness and giddiness (principal)
CPT/HCPCS: 36415; 80048; 85025

== ENCOUNTER → 2019-08-28 05:00 | Outpatient (REF) | payer MEDICARE, SELFPAY ==
[2019-05-24 14:58] VITALS: BMI 36.7
[2019-08-28 08:13] LABS: Anion Gap 5 (5-15); BUN 52 mg/dL (7-18); BUN/Creat Ratio 29.9 RATIO (10-20); Calcium,Total 8.4 mg/dL (8.5-10.1); Chloride 101 mmol/L (98-107); Creatinine, Serum 1.74 mg/dL (0.55-1.02); EST Glomerular Filtration Rate 30 mL/min (>60); Est Glom Filt Rate - Afr Amer 36 mL/min (>60); Glucose 87 mg/dL (74-106); Potassium 4.4 mmol/L (3.5-5.1); Sodium Level 135 mmol/L (136-145)
== END ==
LOC: OLS.ACH 05:00
PROVIDERS: Visit Provider Family Medicine
DX: N18.2 Chronic kidney disease, stage 2 (mild) (principal)
CPT/HCPCS: 36415; 80048

== ENCOUNTER → 2019-09-04 05:00 | Outpatient (REF) | payer MEDICARE, SELFPAY ==
[2019-05-24 14:58] VITALS: BMI 36.7
[2019-09-04 07:30] LABS: Hemoglobin A1c 6.4 % (4.2-6.3)
== END ==
LOC: OLS.ACH 05:00
PROVIDERS: Family Provider Family Medicine; PCP Family Medicine; Visit Provider Family Medicine
DX: E11.22 Type 2 diabetes mellitus with diabetic chronic kidney disease (principal)
CPT/HCPCS: 36415; 83036

== ENCOUNTER → 2019-09-07 05:00 | Outpatient (REF) | payer MEDICARE, SELFPAY ==
[2019-05-24 14:58] VITALS: BMI 36.7
[2019-09-07 07:28] LABS: Anion Gap 6 (5-15); BUN 22 mg/dL (7-18); BUN/Creat Ratio 16.8 RATIO (10-20); Calcium,Total 8.7 mg/dL (8.5-10.1); Chloride 102 mmol/L (98-107); Creatinine, Serum 1.31 mg/dL (0.55-1.02); EST Glomerular Filtration Rate 42 mL/min (>60); Est Glom Filt Rate - Afr Amer 50 mL/min (>60); Glucose 107 mg/dL (74-106); Potassium 4.6 mmol/L (3.5-5.1); Sodium Level 136 mmol/L (136-145)
== END ==
LOC: OLS.ACH 05:00
PROVIDERS: Family Provider Family Medicine; PCP Family Medicine; Visit Provider Family Medicine
DX: E11.22 Type 2 diabetes mellitus with diabetic chronic kidney disease (principal); N18.2 Chronic kidney disease, stage 2 (mild)
CPT/HCPCS: 36415; 80048

== ENCOUNTER → 2019-09-26 05:00 | Outpatient (REF) | payer MEDICARE, SELFPAY ==
[2019-05-24 14:58] VITALS: BMI 36.7
[2019-09-26 07:39] LABS: Anion Gap 4 (5-15); BUN 34 mg/dL (7-18); Calcium,Total 8.8 mg/dL (8.5-10.1); Chloride 102 mmol/L (98-107); Creatinine, Serum 1.48 mg/dL (0.55-1.02); EST Glomerular Filtration Rate 36 mL/min (>60); Est Glom Filt Rate - Afr Amer 44 mL/min (>60); Glucose 117 mg/dL (74-106); Potassium 4.9 mmol/L (3.5-5.1); Sodium Level 136 mmol/L (136-145)
== END ==
LOC: OLS.ACH 05:00
PROVIDERS: Family Provider Family Medicine; PCP Family Medicine; Visit Provider Family Medicine
DX: I50.9 Heart failure, unspecified (principal)
CPT/HCPCS: 36415; 80048

== ENCOUNTER → 2019-10-09 04:00 | Outpatient (REF) | payer MEDICARE, MEDICAID, SELFPAY ==
[2019-05-24 14:58] VITALS: BMI 36.7
[2019-10-09 08:30] LABS: Anion Gap 5 (5-15); BUN 31 mg/dL (7-18); BUN/Creat Ratio 24.2 RATIO (10-20); Calcium,Total 8.6 mg/dL (8.5-10.1); Chloride 100 mmol/L (98-107); Creatinine, Serum 1.28 mg/dL (0.55-1.02); EST Glomerular Filtration Rate 43 mL/min (>60); Est Glom Filt Rate - Afr Amer 52 mL/min (>60); Glucose 77 mg/dL (74-106); Potassium 4.6 mmol/L (3.5-5.1); Sodium Level 134 mmol/L (136-145)
== END ==
LOC: OLS.ACH 04:00
PROVIDERS: PCP Family Medicine; Visit Provider Family Medicine
DX: I13.0 Hypertensive heart and chronic kidney disease with heart failure and stage 1 through stage 4 chronic kidney disease, or unspecified chronic kidney disease (principal)
CPT/HCPCS: 36415; 80048

== ENCOUNTER → 2019-10-22 23:10 | Outpatient (REF) | payer MEDICARE, MEDICAID, SELFPAY ==
[2019-05-24 14:58] VITALS: BMI 36.7
[2019-10-23 00:15] LABS: Absolute Lymphocyte Count 1.68 X10^3/uL (0.83-4.51); Absolute Neutrophil Count 6.2 X10^3/uL (2.0-7.7); Basophil# 0.03 X10^3/uL; Basophil% 0.3 % (0-1); Eosinophil# 0.44 X10^3/uL; Eosinophils% 4.9 % (0-5); Hemoglobin 10.9 g/dL (12.0-15.0); Lymphocyte # 1.68 X10^3/ul (4.0); Lymphocyte % 18.6 % (19-41); Mean Corp Hgb Conc 32.1 g/dL (32-36); Mean Corpuscular Volume 93.7 fL (81-99); Mean Platelet Vol. 10.4 fl (6.2-12.0); Monocyte# 0.62 X10^3/uL; Monocyte% 6.9 % (0-10); NRBC Flagged by Analyzer 0 % (0-5); Neutrophil # 6.23 X10^3/uL (2.7-7.7); Neutrophil % 69.1 % (47-70); Platelet Count 305 K/mm3 (150-450); RBC Distribution Width CV 14.5 % (11.6-14.6); RBC Distribution Width SD 49.5 fl (35.1-43.9); Red Blood Count 3.63 M/mm3 (4.2-5.4)
[2019-10-23 00:21] LABS: ALB/GLOB Ratio 0.8 RATIO (0.9-2.4); Albumin, Serum 3.5 g/dL (3.2-5.0); BUN 24 mg/dL (7-18); BUN/Creat Ratio 17.1 RATIO (10-20); EST Glomerular Filtration Rate 39 mL/min (>60); Est Glom Filt Rate - Afr Amer 47 mL/min (>60); Globulin 4.2 g/dL (2.2-4.2); Glucose 144 mg/dL (74-106); Protein, Total 7.7 g/dL (6.4-8.2)
[2019-10-23 00:22] LABS: AST(SGOT) 38 U/L (15-37); Alanine Aminotransfer ALT/SGPT 36 U/L (13-56); Alkaline Phosphatase 86 U/L (45-117); Anion Gap 7 (5-15); Calcium,Total 9.1 mg/dL (8.5-10.1); Chloride 101 mmol/L (98-107); Potassium 4.6 mmol/L (3.5-5.1); Sodium Level 135 mmol/L (136-145)
[2019-10-23 00:24] LABS: Color, Urine Yellow (Yellow); Glucose, Dipstick Normal (Normal); Ketone-Dipstick Negative (Negative); Leukocyte Esterase-Dipstick 25 /ul (Negative); Nitrite-Dipstick Positive (Negative); Occult Blood-Urine Negative /ul (Negative); Protein-Dipstick Negative (Negative); Urine Bilirubin Dipstick Negative (Negative); Urine Clarity Sl. Cloudy (Clear); Urine Urobilinogen Normal (Normal)
== END ==
LOC: OLS.ACH 23:10
PROVIDERS: PCP Family Medicine; Visit Provider Family Medicine
DX: F03.90 Unspecified dementia, unspecified severity, without behavioral disturbance, psychotic disturbance, mood disturbance, and anxiety (principal); R41.82 Altered mental status, unspecified
CPT/HCPCS: 36415; 80053; 81002; 85025; 87077; 87086; 87088; 87186

== ENCOUNTER → 2019-12-04 04:00 | Outpatient (REF) | payer MEDICARE, MEDICAID, SELFPAY ==
[2019-05-24 14:58] VITALS: BMI 36.7
== END ==
LOC: OLS.ACH 04:00
PROVIDERS: PCP Family Medicine; Visit Provider Family Medicine
DX: E11.22 Type 2 diabetes mellitus with diabetic chronic kidney disease (principal)
CPT/HCPCS: 36415; 83036

== ENCOUNTER → 2019-12-18 05:00 | Outpatient (REF) | payer MEDICAID, SELFPAY ==
[2019-05-24 14:58] VITALS: BMI 36.7
[2019-12-18 07:45] LABS: Anion Gap 4 (5-15); BUN 27 mg/dL (7-18); BUN/Creat Ratio 28.1 RATIO (10-20); Calcium,Total 8.9 mg/dL (8.5-10.1); Chloride 108 mmol/L (98-107); Creatinine, Serum 0.96 mg/dL (0.55-1.02); EST Glomerular Filtration Rate 60 mL/min (>60); Est Glom Filt Rate - Afr Amer 72 mL/min (>60); Glucose 88 mg/dL (74-106); Potassium 4.4 mmol/L (3.5-5.1); Sodium Level 141 mmol/L (136-145)
== END ==
LOC: OLS.ACH 05:00
PROVIDERS: PCP Family Medicine; Visit Provider Family Medicine
DX: N18.2 Chronic kidney disease, stage 2 (mild) (principal)
CPT/HCPCS: 36415; 80048

== ENCOUNTER → 2020-01-08 05:00 | Outpatient (REF) | payer MEDICARE, MEDICAID, SELFPAY ==
[2019-05-24 14:58] VITALS: BMI 36.7
[2020-01-08 06:41] LABS: Anion Gap 6 (5-15); BUN 33 mg/dL (7-18); BUN/Creat Ratio 22.1 RATIO (10-20); Calcium,Total 8.7 mg/dL (8.5-10.1); Chloride 96 mmol/L (98-107); Creatinine, Serum 1.49 mg/dL (0.55-1.02); EST Glomerular Filtration Rate 36 mL/min (>60); Est Glom Filt Rate - Afr Amer 43 mL/min (>60); Glucose 106 mg/dL (74-106); Potassium 4.3 mmol/L (3.5-5.1); Sodium Level 132 mmol/L (136-145)
== END ==
LOC: OLS.ACH 05:00
PROVIDERS: PCP Family Medicine; Visit Provider Family Medicine
DX: I13.0 Hypertensive heart and chronic kidney disease with heart failure and stage 1 through stage 4 chronic kidney disease, or unspecified chronic kidney disease (principal)
CPT/HCPCS: 36415; 80048

== ENCOUNTER → 2020-01-22 04:30 | Outpatient (REF) | payer MEDICARE, MEDICAID, SELFPAY ==
[2019-05-24 14:58] VITALS: BMI 36.7
[2020-01-22 09:06] LABS: Anion Gap 6 (5-15); BUN 42 mg/dL (7-18); BUN/Creat Ratio 25.1 RATIO (10-20); Calcium,Total 9.2 mg/dL (8.5-10.1); Chloride 95 mmol/L (98-107); Cholesterol 119 mg/dL (200); Creatinine, Serum 1.67 mg/dL (0.55-1.02); EST Glomerular Filtration Rate 32 mL/min (>60); Est Glom Filt Rate - Afr Amer 38 mL/min (>60); Glucose 138 mg/dL (74-106); High Density Lipoprotein 42 mg/dL; Potassium 4.3 mmol/L (3.5-5.1); Sodium Level 132 mmol/L (136-145); Thyroid Stim Hormone (TSH) 1.99 uIU/mL (0.358-3.74); Triglycerides 102 mg/dL; Very Low Density Lipoprotein 20 mg/dL (5-40)
== END ==
LOC: OLS.ACH 04:30
PROVIDERS: PCP Family Medicine; Visit Provider Family Medicine
DX: N18.2 Chronic kidney disease, stage 2 (mild) (principal); E03.8 Other specified hypothyroidism; E78.00 Pure hypercholesterolemia, unspecified
CPT/HCPCS: 36415; 80048; 80061; 84443

== ENCOUNTER → 2020-02-06 04:00 | Outpatient (REF) | payer MEDICARE, MEDICAID, SELFPAY ==
[2019-05-24 14:58] VITALS: BMI 36.7
[2020-02-06 09:09] LABS: Anion Gap 7 (5-15); BUN 32 mg/dL (7-18); BUN/Creat Ratio 21.3 RATIO (10-20); Calcium,Total 8.7 mg/dL (8.5-10.1); Chloride 95 mmol/L (98-107); EST Glomerular Filtration Rate 36 mL/min (>60); Est Glom Filt Rate - Afr Amer 43 mL/min (>60); Glucose 132 mg/dL (74-106); Potassium 4.2 mmol/L (3.5-5.1); Sodium Level 131 mmol/L (136-145)
== END ==
LOC: OLS.ACH 04:00
PROVIDERS: PCP Family Medicine; Referring Provider Family Medicine; Visit Provider Family Medicine
DX: I13.0 Hypertensive heart and chronic kidney disease with heart failure and stage 1 through stage 4 chronic kidney disease, or unspecified chronic kidney disease (principal)
CPT/HCPCS: 36415; 80048

== ENCOUNTER → 2020-02-26 04:00 | Outpatient (REF) | payer MEDICARE, MEDICAID, SELFPAY ==
[2019-05-24 14:58] VITALS: BMI 36.7
[2020-02-26 09:44] LABS: Anion Gap 8 (5-15); BUN 27 mg/dL (7-18); BUN/Creat Ratio 20.8 RATIO (10-20); Chloride 97 mmol/L (98-107); EST Glomerular Filtration Rate 42 mL/min (>60); Est Glom Filt Rate - Afr Amer 51 mL/min (>60); Glucose 96 mg/dL (74-106); Potassium 3.6 mmol/L (3.5-5.1); Sodium Level 136 mmol/L (136-145)
[2020-02-26 09:54] LABS: Hemoglobin A1c 6.1 % (3.8-5.6)
== END ==
LOC: OLS.ACH 04:00
PROVIDERS: PCP Family Medicine; Referring Provider Family Medicine; Visit Provider Family Medicine
DX: I13.0 Hypertensive heart and chronic kidney disease with heart failure and stage 1 through stage 4 chronic kidney disease, or unspecified chronic kidney disease (principal); E11.22 Type 2 diabetes mellitus with diabetic chronic kidney disease
CPT/HCPCS: 36415; 80048; 83036

== ENCOUNTER → 2020-03-04 04:00 | Outpatient (REF) | payer SELFPAY ==
[2019-05-24 14:58] VITALS: BMI 36.7
== END ==
LOC: OLS.ACH 04:00
PROVIDERS: PCP Family Medicine; Visit Provider Family Medicine
DX: Z00.00 Encounter for general adult medical examination without abnormal findings (principal)
CPT/HCPCS: 36415; 80048

== ENCOUNTER → 2020-04-08 04:30 | Outpatient (REF) | payer MEDICARE, MEDICAID, SELFPAY ==
[2019-05-24 14:58] VITALS: BMI 36.7
[2020-04-08 08:20] LABS: Anion Gap 5 (5-15); BUN 34 mg/dL (7-18); BUN/Creat Ratio 25.6 RATIO (10-20); Calcium,Total 8.9 mg/dL (8.5-10.1); Chloride 97 mmol/L (98-107); Creatinine, Serum 1.33 mg/dL (0.55-1.02); EST Glomerular Filtration Rate 41 mL/min (>60); Est Glom Filt Rate - Afr Amer 50 mL/min (>60); Glucose 106 mg/dL (74-106); Potassium 3.8 mmol/L (3.5-5.1); Sodium Level 135 mmol/L (136-145)
== END ==
LOC: OLS.ACH 04:30
PROVIDERS: PCP Family Medicine; Referring Provider Family Medicine; Visit Provider Family Medicine
DX: I13.0 Hypertensive heart and chronic kidney disease with heart failure and stage 1 through stage 4 chronic kidney disease, or unspecified chronic kidney disease (principal)
CPT/HCPCS: 36415; 80048

== ENCOUNTER → 2020-05-06 04:00 | Outpatient (REF) | payer MEDICARE, MEDICAID, SELFPAY ==
[2019-05-24 14:58] VITALS: BMI 36.7
[2020-05-06 08:20] LABS: Anion Gap 5 (5-15); BUN 37 mg/dL (7-18); BUN/Creat Ratio 23.9 RATIO (10-20); Calcium,Total 8.5 mg/dL (8.5-10.1); Chloride 99 mmol/L (98-107); Creatinine, Serum 1.55 mg/dL (0.55-1.02); EST Glomerular Filtration Rate 34 mL/min (>60); Est Glom Filt Rate - Afr Amer 42 mL/min (>60); Glucose 137 mg/dL (74-106); Potassium 3.8 mmol/L (3.5-5.1); Sodium Level 135 mmol/L (136-145)
== END ==
LOC: OLS.ACH 04:00
PROVIDERS: PCP Family Medicine; Visit Provider Family Medicine
DX: I13.0 Hypertensive heart and chronic kidney disease with heart failure and stage 1 through stage 4 chronic kidney disease, or unspecified chronic kidney disease (principal)
CPT/HCPCS: 36415; 80048

== ENCOUNTER → 2020-05-29 05:00 | Outpatient (REF) | payer MEDICARE, MEDICAID, SELFPAY ==
[2019-05-24 14:58] VITALS: BMI 36.7
== END ==
LOC: LABSPEC 05:00
PROVIDERS: PCP Family Medicine; Referring Provider Family Medicine; Visit Provider Family Medicine
DX: Z11.59 Encounter for screening for other viral diseases (principal)
CPT/HCPCS: 87635; U0003

== ENCOUNTER → 2020-06-05 05:00 | Outpatient (REF) | payer MEDICARE, MEDICAID, SELFPAY ==
[2019-05-24 14:58] VITALS: BMI 36.7
== END ==
LOC: OLS.ACH 05:00
PROVIDERS: PCP Family Medicine; Visit Provider Family Medicine
DX: Z11.59 Encounter for screening for other viral diseases (principal)
CPT/HCPCS: 87635; U0003

== ENCOUNTER → 2020-06-10 05:00 | Outpatient (REF) | payer MEDICARE, MEDICAID, SELFPAY ==
[2019-05-24 14:58] VITALS: BMI 36.7
[2020-06-10 07:00] LABS: Anion Gap 5 (5-15); BUN 33 mg/dL (7-18); BUN/Creat Ratio 21.2 RATIO (10-20); Calcium,Total 8.7 mg/dL (8.5-10.1); Chloride 99 mmol/L (98-107); Creatinine, Serum 1.56 mg/dL (0.55-1.02); EST Glomerular Filtration Rate 34 mL/min (>60); Est Glom Filt Rate - Afr Amer 41 mL/min (>60); Glucose 151 mg/dL (74-106); Potassium 4.1 mmol/L (3.5-5.1); Sodium Level 134 mmol/L (136-145)
[2020-06-10 08:12] LABS: Hemoglobin A1c 6.4 % (3.8-5.6)
== END ==
LOC: OLS.ACH 05:00
PROVIDERS: PCP Family Medicine; Visit Provider Family Medicine
DX: Z11.59 Encounter for screening for other viral diseases (principal); E11.22 Type 2 diabetes mellitus with diabetic chronic kidney disease; I13.0 Hypertensive heart and chronic kidney disease with heart failure and stage 1 through stage 4 chronic kidney disease, or unspecified chronic kidney disease
CPT/HCPCS: 36415; 80048; 83036; 87635; U0003

== ENCOUNTER → 2020-06-14 13:02 | Outpatient (REF) | payer MEDICARE, MEDICAID, SELFPAY ==
[2019-05-24 14:58] VITALS: BMI 36.7
== END ==
LOC: OLS.ACH 13:02
PROVIDERS: PCP Family Medicine; Referring Provider Family Medicine; Visit Provider Family Medicine
DX: Z03.818 Encounter for observation for suspected exposure to other biological agents ruled out (principal)
CPT/HCPCS: 87635; U0003

== ENCOUNTER → 2020-06-17 08:00 | Outpatient (REF) | payer MEDICARE, MEDICAID, SELFPAY ==
[2019-05-24 14:58] VITALS: BMI 36.7
== END ==
LOC: OLS.ACH 08:00
PROVIDERS: Referring Provider Family Medicine; Visit Provider Family Medicine
DX: Z03.818 Encounter for observation for suspected exposure to other biological agents ruled out (principal)
CPT/HCPCS: 87635; U0003

== ENCOUNTER → 2020-06-21 10:24 | Outpatient (REF) | payer MEDICARE, MEDICAID, SELFPAY ==
[2019-05-24 14:58] VITALS: BMI 36.7
== END ==
LOC: OLS.ACH 10:24
PROVIDERS: Referring Provider Family Medicine; Visit Provider Family Medicine
DX: Z03.818 Encounter for observation for suspected exposure to other biological agents ruled out (principal)
CPT/HCPCS: 87635; U0003

== ENCOUNTER → 2020-06-24 08:00 | Outpatient (REF) | payer MEDICARE, MEDICAID, SELFPAY ==
[2019-05-24 14:58] VITALS: BMI 36.7
== END ==
LOC: OLS.ACH 08:00
PROVIDERS: Referring Provider Family Medicine; Visit Provider Family Medicine
DX: Z03.818 Encounter for observation for suspected exposure to other biological agents ruled out (principal)
CPT/HCPCS: 87635; U0003

== ENCOUNTER → 2020-06-28 10:12 | Outpatient (REF) | payer MEDICARE, MEDICAID, SELFPAY ==
[2019-05-24 14:58] VITALS: BMI 36.7
== END ==
LOC: OLS.ACH 10:12
PROVIDERS: Referring Provider Family Medicine; Visit Provider Family Medicine
DX: Z03.818 Encounter for observation for suspected exposure to other biological agents ruled out (principal)
CPT/HCPCS: 87635; U0003

== ENCOUNTER → 2020-07-02 10:58 | Outpatient (REF) | payer MEDICARE, MEDICAID, SELFPAY ==
[2019-05-24 14:58] VITALS: BMI 36.7
== END ==
LOC: OLS.ACH 10:58
PROVIDERS: Referring Provider Family Medicine; Visit Provider Family Medicine
DX: Z03.818 Encounter for observation for suspected exposure to other biological agents ruled out (principal)
CPT/HCPCS: 87635; U0003

== ENCOUNTER → 2020-07-05 11:43 | Outpatient (REF) | payer MEDICARE, MEDICAID, SELFPAY ==
[2019-05-24 14:58] VITALS: BMI 36.7
== END ==
LOC: OLS.ACH 11:43
PROVIDERS: Referring Provider Family Medicine; Visit Provider Family Medicine
DX: Z03.818 Encounter for observation for suspected exposure to other biological agents ruled out (principal)
CPT/HCPCS: 87635; U0003

== ENCOUNTER → 2020-07-08 04:00 | Outpatient (REF) | payer MEDICARE, MEDICAID, SELFPAY ==
[2019-05-24 14:58] VITALS: BMI 36.7
[2020-07-08 08:54] LABS: Anion Gap 8 (5-15); BUN 29 mg/dL (7-18); BUN/Creat Ratio 21.6 RATIO (10-20); Calcium,Total 8.8 mg/dL (8.5-10.1); Chloride 97 mmol/L (98-107); Creatinine, Serum 1.34 mg/dL (0.55-1.02); EST Glomerular Filtration Rate 41 mL/min (>60); Est Glom Filt Rate - Afr Amer 49 mL/min (>60); Glucose 132 mg/dL (74-106); Potassium 3.8 mmol/L (3.5-5.1); Sodium Level 135 mmol/L (136-145)
== END ==
LOC: OLS.ACH 04:00
PROVIDERS: Referring Provider Family Medicine; Visit Provider Family Medicine
DX: I13.0 Hypertensive heart and chronic kidney disease with heart failure and stage 1 through stage 4 chronic kidney disease, or unspecified chronic kidney disease (principal)
CPT/HCPCS: 36415; 80048

== ENCOUNTER → 2020-07-09 16:19 | Outpatient (REF) | payer MEDICARE, MEDICAID, SELFPAY ==
[2019-05-24 14:58] VITALS: BMI 36.7
== END ==
LOC: OLS.ACH 16:19
PROVIDERS: Referring Provider Family Medicine; Visit Provider Family Medicine
DX: Z03.818 Encounter for observation for suspected exposure to other biological agents ruled out (principal)
CPT/HCPCS: 87635; U0003

== ENCOUNTER → 2020-07-16 07:36 | Outpatient (REF) | payer MEDICARE, MEDICAID, SELFPAY ==
[2019-05-24 14:58] VITALS: BMI 36.7
== END ==
LOC: OLS.ACH 07:36
PROVIDERS: Referring Provider Family Medicine; Visit Provider Family Medicine
DX: Z03.818 Encounter for observation for suspected exposure to other biological agents ruled out (principal)
CPT/HCPCS: 87635; U0003

== ENCOUNTER → 2020-07-23 13:33 | Outpatient (REF) | payer MEDICARE, MEDICAID, SELFPAY ==
[2019-05-24 14:58] VITALS: BMI 36.7
== END ==
LOC: OLS.ACH 13:33
PROVIDERS: Visit Provider Family Medicine
DX: Z03.818 Encounter for observation for suspected exposure to other biological agents ruled out (principal)
CPT/HCPCS: 87635; U0003

== ENCOUNTER → 2020-07-30 11:18 | Outpatient (REF) | payer MEDICARE, MEDICAID, SELFPAY ==
[2019-05-24 14:58] VITALS: BMI 36.7
== END ==
LOC: OLS.ACH 11:18
PROVIDERS: PCP Family Medicine; Referring Provider Family Medicine; Visit Provider Family Medicine
DX: Z03.818 Encounter for observation for suspected exposure to other biological agents ruled out (principal)
CPT/HCPCS: 87635; U0003

== ENCOUNTER → 2020-08-05 05:00 | Outpatient (REF) | payer MEDICARE, MEDICAID, SELFPAY ==
[2019-05-24 14:58] VITALS: BMI 36.7
[2020-08-05 08:52] LABS: Anion Gap 6 (5-15); BUN 29 mg/dL (7-18); Calcium,Total 8.5 mg/dL (8.5-10.1); Chloride 101 mmol/L (98-107); Creatinine, Serum 1.38 mg/dL (0.55-1.02); EST Glomerular Filtration Rate 39 mL/min (>60); Est Glom Filt Rate - Afr Amer 47 mL/min (>60); Glucose 97 mg/dL (74-106); Potassium 3.7 mmol/L (3.5-5.1); Sodium Level 136 mmol/L (136-145)
== END ==
LOC: OLS.ACH 05:00
PROVIDERS: PCP Family Medicine; Referring Provider Family Medicine; Visit Provider Family Medicine
DX: I13.0 Hypertensive heart and chronic kidney disease with heart failure and stage 1 through stage 4 chronic kidney disease, or unspecified chronic kidney disease (principal)
CPT/HCPCS: 36415; 80048

== ENCOUNTER → 2020-08-13 10:07 | Outpatient (REF) | payer MEDICARE, MEDICAID, SELFPAY ==
[2019-05-24 14:58] VITALS: BMI 36.7
== END ==
LOC: OLS.ACH 10:07
PROVIDERS: PCP Family Medicine; Referring Provider Family Medicine; Visit Provider Family Medicine
DX: Z03.818 Encounter for observation for suspected exposure to other biological agents ruled out (principal)
CPT/HCPCS: 87635; U0003

== ENCOUNTER → 2020-08-27 08:22 | Outpatient (REF) | payer MEDICARE, MEDICAID, SELFPAY ==
[2019-05-24 14:58] VITALS: BMI 36.7
== END ==
LOC: OLS.ACH 08:22
PROVIDERS: PCP Family Medicine; Referring Provider Family Medicine; Visit Provider Family Medicine
DX: Z03.818 Encounter for observation for suspected exposure to other biological agents ruled out (principal)
CPT/HCPCS: 87635; U0003

== ENCOUNTER → 2020-09-09 04:00 | Outpatient (REF) | payer MEDICARE, MEDICAID, SELFPAY ==
[2019-05-24 14:58] VITALS: BMI 36.7
[2020-09-09 07:26] LABS: Anion Gap 6 (5-15); BUN 30 mg/dL (7-18); BUN/Creat Ratio 21.9 RATIO (10-20); Calcium,Total 8.4 mg/dL (8.5-10.1); Chloride 100 mmol/L (98-107); Creatinine, Serum 1.37 mg/dL (0.55-1.02); EST Glomerular Filtration Rate 40 mL/min (>60); Est Glom Filt Rate - Afr Amer 48 mL/min (>60); Glucose 99 mg/dL (74-106); Potassium 3.6 mmol/L (3.5-5.1); Sodium Level 135 mmol/L (136-145)
[2020-09-09 07:48] LABS: Hemoglobin A1c 6.2 % (3.8-5.6)
== END ==
LOC: OLS.ACH 04:00
PROVIDERS: PCP Family Medicine; Referring Provider Family Medicine; Visit Provider Family Medicine
DX: I13.0 Hypertensive heart and chronic kidney disease with heart failure and stage 1 through stage 4 chronic kidney disease, or unspecified chronic kidney disease (principal); E11.9 Type 2 diabetes mellitus without complications
CPT/HCPCS: 36415; 80048; 83036

== ENCOUNTER → 2020-09-10 09:26 | Outpatient (REF) | payer MEDICARE, MEDICAID, SELFPAY ==
[2019-05-24 14:58] VITALS: BMI 36.7
== END ==
LOC: OLS.ACH 09:26
PROVIDERS: PCP Family Medicine; Referring Provider Family Medicine; Visit Provider Family Medicine
DX: Z03.818 Encounter for observation for suspected exposure to other biological agents ruled out (principal)
CPT/HCPCS: 87635; U0003

== ENCOUNTER → 2020-09-18 09:00 | Outpatient (REF) | payer MEDICARE, MEDICAID, SELFPAY ==
[2019-05-24 14:58] VITALS: BMI 36.7
== END ==
LOC: OLS.ACH 09:00
PROVIDERS: PCP Family Medicine; Referring Provider Family Medicine; Visit Provider Family Medicine
DX: Z03.818 Encounter for observation for suspected exposure to other biological agents ruled out (principal)
CPT/HCPCS: 87635; U0005; U0003

== ENCOUNTER → 2020-10-07 04:00 | Outpatient (REF) | payer MEDICARE, MEDICAID, SELFPAY ==
[2019-05-24 14:58] VITALS: BMI 36.7
[2020-10-07 08:15] LABS: Anion Gap 9 (5-15); BUN 28 mg/dL (7-18); BUN/Creat Ratio 20.3 RATIO (10-20); Calcium,Total 8.4 mg/dL (8.5-10.1); Chloride 99 mmol/L (98-107); Creatinine, Serum 1.38 mg/dL (0.55-1.02); EST Glomerular Filtration Rate 39 mL/min (>60); Est Glom Filt Rate - Afr Amer 47 mL/min (>60); Glucose 97 mg/dL (74-106); Potassium 3.3 mmol/L (3.5-5.1); Sodium Level 136 mmol/L (136-145)
== END ==
LOC: OLS.ACH 04:00
PROVIDERS: PCP Family Medicine; Referring Provider Family Medicine; Visit Provider Family Medicine
DX: I10 Essential (primary) hypertension (principal); Z79.899 Other long term (current) drug therapy
CPT/HCPCS: 36415; 80048

== ENCOUNTER → 2020-10-09 05:00 | Outpatient (REF) | payer MEDICARE, MEDICAID, SELFPAY ==
[2019-05-24 14:58] VITALS: BMI 36.7
[2020-10-09 07:04] LABS: Hematocrit 32.1 % (37-47); Hemoglobin 10.2 g/dL (12.0-15.0); Mean Corp Hgb Conc 31.8 g/dL (32-36); Mean Corpuscular Hgb 29.4 pg (27.0-32.0); Mean Corpuscular Volume 92.5 fL (81-99); Mean Platelet Vol. 10.9 fl (6.2-12.0); Platelet Count 272 K/mm3 (150-450); RBC Distribution Width SD 50.9 fl (35.1-43.9); Red Blood Count 3.47 M/mm3 (4.2-5.4); White Blood Count 7.9 K/mm3 (4.4-11.0)
[2020-10-09 07:27] LABS: Anion Gap 8 (5-15); BUN 26 mg/dL (7-18); BUN/Creat Ratio 18.4 RATIO (10-20); Calcium,Total 8.2 mg/dL (8.5-10.1); Chloride 99 mmol/L (98-107); Creatinine, Serum 1.41 mg/dL (0.55-1.02); EST Glomerular Filtration Rate 38 mL/min (>60); Est Glom Filt Rate - Afr Amer 46 mL/min (>60); Glucose 98 mg/dL (74-106); Potassium 3.1 mmol/L (3.5-5.1); Sodium Level 137 mmol/L (136-145)
== END ==
LOC: OLS.ACH 05:00
PROVIDERS: PCP Family Medicine; Referring Provider Family Medicine; Visit Provider Family Medicine
DX: I50.9 Heart failure, unspecified (principal); D64.9 Anemia, unspecified; R42 Dizziness and giddiness; N19 Unspecified kidney failure
CPT/HCPCS: 36415; 80048; 85027

== ENCOUNTER → 2020-10-22 04:30 | Outpatient (REF) | payer MEDICARE, MEDICAID, SELFPAY ==
[2019-05-24 14:58] VITALS: BMI 36.7
[2020-10-22 07:49] LABS: Anion Gap 6 (5-15); BUN 19 mg/dL (7-18); BUN/Creat Ratio 14.6 RATIO (10-20); Calcium,Total 8.5 mg/dL (8.5-10.1); Chloride 104 mmol/L (98-107); EST Glomerular Filtration Rate 42 mL/min (>60); Est Glom Filt Rate - Afr Amer 51 mL/min (>60); Glucose 99 mg/dL (74-106); Potassium 3.7 mmol/L (3.5-5.1); Sodium Level 137 mmol/L (136-145)
== END ==
LOC: OLS.ACH 04:30
PROVIDERS: PCP Family Medicine; Visit Provider Family Medicine
DX: I13.0 Hypertensive heart and chronic kidney disease with heart failure and stage 1 through stage 4 chronic kidney disease, or unspecified chronic kidney disease (principal); E87.6 Hypokalemia
CPT/HCPCS: 36415; 80048

== ENCOUNTER → 2020-11-05 05:00 | Outpatient (REF) | payer MEDICARE, MEDICAID, SELFPAY ==
[2019-05-24 14:58] VITALS: BMI 36.7
[2020-11-05 07:51] LABS: Anion Gap 6 (5-15); BUN 20 mg/dL (7-18); BUN/Creat Ratio 15.4 RATIO (10-20); Calcium,Total 8.5 mg/dL (8.5-10.1); Chloride 103 mmol/L (98-107); EST Glomerular Filtration Rate 42 mL/min (>60); Est Glom Filt Rate - Afr Amer 51 mL/min (>60); Glucose 93 mg/dL (74-106); Potassium 3.5 mmol/L (3.5-5.1); Sodium Level 138 mmol/L (136-145)
== END ==
LOC: OLS.ACH 05:00
PROVIDERS: PCP Family Medicine; Referring Provider Family Medicine; Visit Provider Family Medicine
DX: F03.90 Unspecified dementia, unspecified severity, without behavioral disturbance, psychotic disturbance, mood disturbance, and anxiety (principal)
CPT/HCPCS: 36415; 80048

== ENCOUNTER → 2020-12-02 04:00 | Outpatient (REF) | payer MEDICARE, MEDICAID, SELFPAY ==
[2019-05-24 14:58] VITALS: BMI 36.7
[2020-12-02 07:32] LABS: Anion Gap 9 (5-15); BUN 25 mg/dL (7-18); Calcium,Total 8.4 mg/dL (8.5-10.1); Chloride 100 mmol/L (98-107); Creatinine, Serum 1.39 mg/dL (0.55-1.02); EST Glomerular Filtration Rate 39 mL/min (>60); Est Glom Filt Rate - Afr Amer 47 mL/min (>60); Glucose 145 mg/dL (74-106); Potassium 3.7 mmol/L (3.5-5.1); Sodium Level 137 mmol/L (136-145)
== END ==
LOC: OLS.ACH 04:00
PROVIDERS: PCP Family Medicine; Visit Provider Family Medicine
DX: E11.9 Type 2 diabetes mellitus without complications (principal); I13.0 Hypertensive heart and chronic kidney disease with heart failure and stage 1 through stage 4 chronic kidney disease, or unspecified chronic kidney disease
CPT/HCPCS: 36415; 80048; 83036

== ENCOUNTER → 2020-12-26 05:00 | Outpatient (REF) | payer MEDICARE, MEDICAID, SELFPAY ==
[2019-05-24 14:58] VITALS: BMI 36.7
[2020-12-26 08:10] LABS: Hematocrit 31.9 % (37-47); Hemoglobin 9.9 g/dL (12.0-15.0); Mean Corpuscular Hgb 30.2 pg (27.0-32.0); Mean Corpuscular Volume 97.3 fL (81-99); Mean Platelet Vol. 13.4 fl (6.2-12.0); Platelet Count 251 K/mm3 (150-450); RBC Distribution Width CV 14.6 % (11.6-14.6); RBC Distribution Width SD 52.6 fl (35.1-43.9); Red Blood Count 3.28 M/mm3 (4.2-5.4); White Blood Count 7.3 K/mm3 (4.4-11.0)
[2020-12-26 08:16] LABS: Ferritin 101 ng/mL (8-252); Iron 46 ug/dL (50-170)
== END ==
LOC: OLS.ACH 05:00
PROVIDERS: PCP Family Medicine; Visit Provider Family Medicine
DX: D64.9 Anemia, unspecified (principal)
CPT/HCPCS: 36415; 82728; 83540; 85027

== ENCOUNTER → 2020-12-30 04:00 | Outpatient (REF) | payer MEDICARE, MEDICAID, SELFPAY ==
[2019-05-24 14:58] VITALS: BMI 36.7
[2020-12-30 07:54] LABS: Anion Gap 6 (5-15); BUN 23 mg/dL (7-18); BUN/Creat Ratio 18.1 RATIO (10-20); Calcium,Total 8.3 mg/dL (8.5-10.1); Chloride 104 mmol/L (98-107); Creatinine, Serum 1.27 mg/dL (0.55-1.02); EST Glomerular Filtration Rate 43 mL/min (>60); Est Glom Filt Rate - Afr Amer 52 mL/min (>60); Glucose 109 mg/dL (74-106); Potassium 3.4 mmol/L (3.5-5.1); Sodium Level 138 mmol/L (136-145)
== END ==
LOC: OLS.ACH 04:00
PROVIDERS: PCP Family Medicine; Visit Provider Family Medicine
DX: I13.0 Hypertensive heart and chronic kidney disease with heart failure and stage 1 through stage 4 chronic kidney disease, or unspecified chronic kidney disease (principal)
CPT/HCPCS: 36415; 80048

== ENCOUNTER → 2021-01-27 04:00 | Outpatient (REF) | payer MEDICARE, MEDICAID, SELFPAY ==
[2019-05-24 14:58] VITALS: BMI 36.7
[2021-01-27 09:00] LABS: Anion Gap 7 (5-15); BUN 30 mg/dL (7-18); BUN/Creat Ratio 20.4 RATIO (10-20); Calcium,Total 8.3 mg/dL (8.5-10.1); Chloride 104 mmol/L (98-107); Creatinine, Serum 1.47 mg/dL (0.55-1.02); EST Glomerular Filtration Rate 36 mL/min (>60); Est Glom Filt Rate - Afr Amer 44 mL/min (>60); Glucose 111 mg/dL (74-106); Potassium 3.7 mmol/L (3.5-5.1); Sodium Level 138 mmol/L (136-145)
== END ==
LOC: OLS.ACH 04:00
PROVIDERS: PCP Family Medicine; Referring Provider Family Medicine; Visit Provider Family Medicine
DX: I13.0 Hypertensive heart and chronic kidney disease with heart failure and stage 1 through stage 4 chronic kidney disease, or unspecified chronic kidney disease (principal)
CPT/HCPCS: 36415; 80048

== ENCOUNTER → 2021-02-03 04:00 | Outpatient (REF) | payer MEDICARE, MEDICAID, SELFPAY ==
[2019-05-24 14:58] VITALS: BMI 36.7
[2021-02-03 08:20] LABS: Cholesterol 150 mg/dL (200); High Density Lipoprotein 49 mg/dL; Thyroid Stim Hormone (TSH) 1.78 uIU/mL (0.358-3.74); Triglycerides 109 mg/dL; Very Low Density Lipoprotein 22 mg/dL (5-40)
== END ==
LOC: OLS.ACH 04:00
PROVIDERS: PCP Family Medicine; Visit Provider Family Medicine
DX: E78.00 Pure hypercholesterolemia, unspecified (principal); E03.9 Hypothyroidism, unspecified
CPT/HCPCS: 36415; 80061; 84443

== ENCOUNTER → 2021-02-24 04:00 | Outpatient (REF) | payer MEDICARE, MEDICAID, SELFPAY ==
[2019-05-24 14:58] VITALS: BMI 36.7
[2021-02-24 09:18] LABS: Anion Gap 9 (5-15); BUN 27 mg/dL (7-18); BUN/Creat Ratio 18.1 RATIO (10-20); Calcium,Total 8.8 mg/dL (8.5-10.1); Chloride 99 mmol/L (98-107); Creatinine, Serum 1.49 mg/dL (0.55-1.02); EST Glomerular Filtration Rate 36 mL/min (>60); Est Glom Filt Rate - Afr Amer 43 mL/min (>60); Glucose 132 mg/dL (74-106); Potassium 3.6 mmol/L (3.5-5.1); Sodium Level 137 mmol/L (136-145)
[2021-02-24 09:35] LABS: Hemoglobin A1c 6.7 % (3.8-5.6)
[2021-02-26 14:03] VITALS: BMI 35.9
== END ==
LOC: OLS.ACH 04:00
PROVIDERS: PCP Family Medicine; Referring Provider Family Medicine; Visit Provider Family Medicine
DX: E11.22 Type 2 diabetes mellitus with diabetic chronic kidney disease (principal); I13.0 Hypertensive heart and chronic kidney disease with heart failure and stage 1 through stage 4 chronic kidney disease, or unspecified chronic kidney disease; N18.9 Chronic kidney disease, unspecified; I50.9 Heart failure, unspecified
CPT/HCPCS: 36415; 80048; 83036

== ENCOUNTER → 2021-03-24 05:00 | Outpatient (REF) | payer MEDICARE, MEDICAID, SELFPAY ==
[2021-02-26 14:03] VITALS: BMI 35.9
[2021-03-24 08:50] LABS: Anion Gap 8 (5-15); BUN 28 mg/dL (7-18); BUN/Creat Ratio 20.6 RATIO (10-20); Calcium,Total 8.3 mg/dL (8.5-10.1); Chloride 101 mmol/L (98-107); Creatinine, Serum 1.36 mg/dL (0.55-1.02); EST Glomerular Filtration Rate 40 mL/min (>60); Est Glom Filt Rate - Afr Amer 48 mL/min (>60); Glucose 164 mg/dL (74-106); Potassium 3.8 mmol/L (3.5-5.1); Sodium Level 135 mmol/L (136-145)
== END ==
LOC: OLS.ACH 05:00
PROVIDERS: PCP Family Medicine; Visit Provider Family Medicine
DX: I13.0 Hypertensive heart and chronic kidney disease with heart failure and stage 1 through stage 4 chronic kidney disease, or unspecified chronic kidney disease (principal)
CPT/HCPCS: 36415; 80048

== ENCOUNTER → 2021-04-21 05:00 | Outpatient (REF) | payer MEDICARE, MEDICAID, SELFPAY ==
[2021-02-26 14:03] VITALS: BMI 35.9
[2021-04-21 08:49] LABS: Anion Gap 9 (5-15); BUN 29 mg/dL (7-18); BUN/Creat Ratio 22.3 RATIO (10-20); Calcium,Total 8.3 mg/dL (8.5-10.1); Chloride 102 mmol/L (98-107); EST Glomerular Filtration Rate 42 mL/min (>60); Est Glom Filt Rate - Afr Amer 51 mL/min (>60); Glucose 141 mg/dL (74-106); Potassium 3.7 mmol/L (3.5-5.1); Sodium Level 136 mmol/L (136-145)
== END ==
LOC: OLS.ACH 05:00
PROVIDERS: PCP Family Medicine; Visit Provider Family Medicine
DX: I13.0 Hypertensive heart and chronic kidney disease with heart failure and stage 1 through stage 4 chronic kidney disease, or unspecified chronic kidney disease (principal); I50.9 Heart failure, unspecified; N18.9 Chronic kidney disease, unspecified
CPT/HCPCS: 36415; 80048

== ENCOUNTER → 2021-05-20 04:00 | Outpatient (REF) | payer MEDICARE, MEDICAID, SELFPAY ==
[2021-05-20 09:27] LABS: Anion Gap 7 (5-15); BUN 23 mg/dL (7-18); BUN/Creat Ratio 18.9 RATIO (10-20); Calcium,Total 8.8 mg/dL (8.5-10.1); Chloride 102 mmol/L (98-107); Creatinine, Serum 1.22 mg/dL (0.55-1.02); EST Glomerular Filtration Rate 45 mL/min (>60); Est Glom Filt Rate - Afr Amer 55 mL/min (>60); Glucose 133 mg/dL (74-106); Potassium 3.7 mmol/L (3.5-5.1); Sodium Level 135 mmol/L (136-145)
[2021-05-20 09:49] LABS: Hemoglobin A1c 7.3 % (3.8-5.6)
== END ==
LOC: OLS.ACH 04:00
PROVIDERS: PCP Family Medicine; Visit Provider Family Medicine
DX: E11.22 Type 2 diabetes mellitus with diabetic chronic kidney disease (principal); N18.9 Chronic kidney disease, unspecified
CPT/HCPCS: 36415; 80048; 83036

== ENCOUNTER → 2021-06-16 05:00 | Outpatient (REF) | payer MEDICARE, MEDICAID, SELFPAY ==
[2021-06-16 09:11] LABS: Anion Gap 12 (5-15); BUN 19 mg/dL (7-18); BUN/Creat Ratio 14.1 RATIO (10-20); Calcium,Total 8.4 mg/dL (8.5-10.1); Chloride 100 mmol/L (98-107); Creatinine, Serum 1.35 mg/dL (0.55-1.02); EST Glomerular Filtration Rate 40 mL/min (>60); Est Glom Filt Rate - Afr Amer 49 mL/min (>60); Glucose 134 mg/dL (74-106); Potassium 3.4 mmol/L (3.5-5.1); Sodium Level 137 mmol/L (136-145)
== END ==
LOC: OLS.ACH 05:00
PROVIDERS: PCP Family Medicine; Visit Provider Family Medicine
DX: I13.0 Hypertensive heart and chronic kidney disease with heart failure and stage 1 through stage 4 chronic kidney disease, or unspecified chronic kidney disease (principal); I50.9 Heart failure, unspecified; N18.9 Chronic kidney disease, unspecified
CPT/HCPCS: 36415; 80048

== ENCOUNTER → 2021-06-30 04:00 | Outpatient (REF) | payer MEDICARE, MEDICAID, SELFPAY ==
[2021-06-30 06:34] LABS: Potassium 3.9 mmol/L (3.5-5.1)
== END ==
LOC: OLS.ACH 04:00
PROVIDERS: PCP Family Medicine; Visit Provider Family Medicine
DX: I13.0 Hypertensive heart and chronic kidney disease with heart failure and stage 1 through stage 4 chronic kidney disease, or unspecified chronic kidney disease (principal); I50.9 Heart failure, unspecified; N18.30 Chronic kidney disease, stage 3 unspecified
CPT/HCPCS: 36415; 84132

== ENCOUNTER → 2021-07-14 05:00 | Outpatient (REF) | payer MEDICARE, MEDICAID, SELFPAY ==
[2021-07-14 09:20] LABS: Anion Gap 8 (5-15); BUN 16 mg/dL (7-18); BUN/Creat Ratio 13.4 RATIO (10-20); Calcium,Total 8.6 mg/dL (8.5-10.1); Chloride 103 mmol/L (98-107); Creatinine, Serum 1.19 mg/dL (0.55-1.02); EST Glomerular Filtration Rate 46 mL/min (>60); Est Glom Filt Rate - Afr Amer 56 mL/min (>60); Glucose 128 mg/dL (74-106); Potassium 3.8 mmol/L (3.5-5.1); Sodium Level 137 mmol/L (136-145)
== END ==
LOC: OLS.ACH 05:00
PROVIDERS: PCP Family Medicine; Visit Provider Family Medicine
DX: I13.0 Hypertensive heart and chronic kidney disease with heart failure and stage 1 through stage 4 chronic kidney disease, or unspecified chronic kidney disease (principal); I50.9 Heart failure, unspecified; N18.9 Chronic kidney disease, unspecified
CPT/HCPCS: 36415; 80048

== ENCOUNTER → 2021-08-11 05:00 | Outpatient (REF) | payer MEDICARE, MEDICAID, SELFPAY ==
[2021-08-11 08:28] LABS: Anion Gap 8 (5-15); BUN 20 mg/dL (7-18); BUN/Creat Ratio 16.3 RATIO (10-20); Calcium,Total 8.5 mg/dL (8.5-10.1); Chloride 101 mmol/L (98-107); Creatinine, Serum 1.23 mg/dL (0.55-1.02); EST Glomerular Filtration Rate 45 mL/min (>60); Est Glom Filt Rate - Afr Amer 54 mL/min (>60); Glucose 182 mg/dL (74-106); Potassium 3.8 mmol/L (3.5-5.1); Sodium Level 136 mmol/L (136-145)
[2021-08-11 08:41] LABS: Hemoglobin A1c 7.6 % (3.8-5.6)
== END ==
LOC: OLS.ACH 05:00
PROVIDERS: PCP Family Medicine
DX: E11.22 Type 2 diabetes mellitus with diabetic chronic kidney disease (principal); N18.9 Chronic kidney disease, unspecified
CPT/HCPCS: 36415; 80048; 83036

== ENCOUNTER → 2021-09-08 04:00 | Outpatient (REF) | payer MEDICARE, MEDICAID, SELFPAY ==
[2021-09-08 07:43] LABS: Anion Gap 6 (5-15); BUN 19 mg/dL (7-18); BUN/Creat Ratio 16.2 RATIO (10-20); Calcium,Total 8.6 mg/dL (8.5-10.1); Chloride 105 mmol/L (98-107); Creatinine, Serum 1.17 mg/dL (0.55-1.02); EST Glomerular Filtration Rate 47 mL/min (>60); Est Glom Filt Rate - Afr Amer 57 mL/min (>60); Glucose 154 mg/dL (74-106); Potassium 3.6 mmol/L (3.5-5.1); Sodium Level 137 mmol/L (136-145)
== END ==
LOC: OLS.ACH 04:00
PROVIDERS: PCP Family Medicine; Visit Provider Family Medicine
DX: I13.0 Hypertensive heart and chronic kidney disease with heart failure and stage 1 through stage 4 chronic kidney disease, or unspecified chronic kidney disease (principal); I50.9 Heart failure, unspecified; N18.9 Chronic kidney disease, unspecified
CPT/HCPCS: 36415; 80048

== ENCOUNTER 2021-10-06 04:00 | Outpatient (REF) | payer MEDICARE, MEDICAID, SELFPAY ==
[2021-10-06 10:09] LABS: Anion Gap 7 (5-15); BUN 23 mg/dL (7-18); BUN/Creat Ratio 19.5 RATIO (10-20); Calcium,Total 8.4 mg/dL (8.5-10.1); Chloride 101 mmol/L (98-107); Creatinine, Serum 1.18 mg/dL (0.55-1.02); EST Glomerular Filtration Rate 47 mL/min (>60); Est Glom Filt Rate - Afr Amer 57 mL/min (>60); Glucose 158 mg/dL (74-106); Potassium 3.7 mmol/L (3.5-5.1); Sodium Level 135 mmol/L (136-145)
== END 2021-10-06 23:59 | disposition home or self-care (01) ==
LOC: OLS.ACH 04:00
PROVIDERS: PCP Family Medicine; Referring Provider Family Medicine; Visit Provider Family Medicine
DX: I13.0 Hypertensive heart and chronic kidney disease with heart failure and stage 1 through stage 4 chronic kidney disease, or unspecified chronic kidney disease (principal); I50.9 Heart failure, unspecified; N18.9 Chronic kidney disease, unspecified
CPT/HCPCS: 36415; 80048

== ENCOUNTER 2021-11-03 05:00 | Outpatient (REF) | payer MEDICARE, MEDICAID, SELFPAY ==
[2021-11-03 09:14] LABS: Anion Gap 6 (5-15); BUN 22 mg/dL (7-18); BUN/Creat Ratio 19.6 RATIO (10-20); Calcium,Total 8.3 mg/dL (8.5-10.1); Chloride 104 mmol/L (98-107); Creatinine, Serum 1.12 mg/dL (0.55-1.02); EST Glomerular Filtration Rate 50 mL/min (>60); Est Glom Filt Rate - Afr Amer 60 mL/min (>60); Glucose 145 mg/dL (74-106); Potassium 3.7 mmol/L (3.5-5.1); Sodium Level 137 mmol/L (136-145)
[2021-11-03 09:26] LABS: Hemoglobin A1c 8.2 % (3.8-5.6)
== END 2021-11-03 23:59 | disposition home or self-care (01) ==
LOC: OLS.ACH 05:00
PROVIDERS: PCP Family Medicine; Visit Provider Family Medicine
DX: E11.22 Type 2 diabetes mellitus with diabetic chronic kidney disease (principal); N18.9 Chronic kidney disease, unspecified
CPT/HCPCS: 36415; 80048; 83036

== ENCOUNTER → 2021-12-01 | Outpatient (REF) | payer MEDICARE, MEDICAID, SELFPAY ==
[2021-12-01 09:17] LABS: Anion Gap 6 (5-15); BUN 19 mg/dL (7-18); BUN/Creat Ratio 15.7 RATIO (10-20); Calcium,Total 8.3 mg/dL (8.5-10.1); Chloride 104 mmol/L (98-107); Creatinine, Serum 1.21 mg/dL (0.55-1.02); EST Glomerular Filtration Rate 45 mL/min (>60); Est Glom Filt Rate - Afr Amer 55 mL/min (>60); Glucose 107 mg/dL (74-106); Potassium 3.6 mmol/L (3.5-5.1); Sodium Level 137 mmol/L (136-145)
== END | disposition home or self-care (01) ==
LOC: OLS.ACH 05:00
PROVIDERS: PCP Family Medicine; Visit Provider Family Medicine
DX: I13.0 Hypertensive heart and chronic kidney disease with heart failure and stage 1 through stage 4 chronic kidney disease, or unspecified chronic kidney disease (principal); I50.9 Heart failure, unspecified; N18.9 Chronic kidney disease, unspecified
CPT/HCPCS: 36415; 80048

== ENCOUNTER → 2021-12-29 | Outpatient (REF) | payer MEDICARE, MEDICAID, SELFPAY ==
[2021-12-29 09:09] LABS: Anion Gap 8 (5-15); BUN 16 mg/dL (7-18); BUN/Creat Ratio 12.8 RATIO (10-20); Calcium,Total 9.1 mg/dL (8.5-10.1); Chloride 103 mmol/L (98-107); Creatinine, Serum 1.25 mg/dL (0.55-1.02); EST Glomerular Filtration Rate 44 mL/min (>60); Est Glom Filt Rate - Afr Amer 53 mL/min (>60); Glucose 133 mg/dL (74-106); Potassium 3.6 mmol/L (3.5-5.1); Sodium Level 139 mmol/L (136-145)
== END | disposition home or self-care (01) ==
LOC: OLS.ACH 04:00
PROVIDERS: PCP Family Medicine; Referring Provider Family Medicine; Visit Provider Family Medicine
DX: I50.20 Unspecified systolic (congestive) heart failure (principal)
CPT/HCPCS: 36415; 80048

== ENCOUNTER → 2022-01-07 | Outpatient (REF) | payer MEDICARE, MEDICAID, SELFPAY ==
[2022-01-07 07:08] LABS: Mucous, Urine 0 SEEN /hpf (<or=2+); Red Blood Cells-Urine 0 SEEN /hpf (0-5)
[2022-01-07 07:22] LABS: Absolute Lymphocyte Count 1.88 X10^3/uL (0.83-4.51); Absolute Neutrophil Count 7.7 X10^3/uL (2.0-7.7); Basophil# 0.04 X10^3/uL; Basophil% 0.4 % (0-1); Eosinophil# 0.39 X10^3/uL; Eosinophils% 3.6 % (0-5); Hematocrit 34.7 % (37-47); Hemoglobin 11.1 g/dL (12.0-15.0); Lymphocyte # 1.88 X10^3/ul (0.83-4.51); Lymphocyte % 17.4 % (19-41); Mean Corpuscular Hgb 30.2 pg (27.0-32.0); Mean Corpuscular Volume 94.6 fL (81-99); Mean Platelet Vol. 11.9 fl (6.2-12.0); Monocyte# 0.74 X10^3/uL; Monocyte% 6.9 % (0-10); NRBC Flagged by Analyzer 0 % (0-5); Neutrophil # 7.69 X10^3/uL (2.7-7.7); Neutrophil % 71.2 % (47-70); Platelet Count 291 K/mm3 (150-450); RBC Distribution Width CV 14.3 % (11.6-14.6); RBC Distribution Width SD 49.7 fl (35.1-43.9); Red Blood Count 3.67 M/mm3 (4.2-5.4); White Blood Count 10.8 K/mm3 (4.4-11.0)
[2022-01-07 07:48] LABS: ALB/GLOB Ratio 0.8 RATIO (0.9-2.4); AST(SGOT) 20 U/L (15-37); Alanine Aminotransfer ALT/SGPT 21 U/L (13-56); Albumin, Serum 2.9 g/dL (3.2-5.0); Alkaline Phosphatase 86 U/L (45-117); Anion Gap 7 (5-15); BUN 20 mg/dL (7-18); Calcium,Total 8.2 mg/dL (8.5-10.1); Chloride 103 mmol/L (98-107); Cholesterol 157 mg/dL (200); Creatinine, Serum 1.25 mg/dL (0.55-1.02); EST Glomerular Filtration Rate 44 mL/min (>60); Est Glom Filt Rate - Afr Amer 53 mL/min (>60); Globulin 3.6 g/dL (2.2-4.2); Glucose 102 mg/dL (74-106); High Density Lipoprotein 49 mg/dL; Potassium 3.5 mmol/L (3.5-5.1); Protein, Total 6.5 g/dL (6.4-8.2); Sodium Level 138 mmol/L (136-145); Thyroid Stim Hormone (TSH) 3.17 uIU/mL (0.358-3.74); Triglycerides 103 mg/dL; Very Low Density Lipoprotein 21 mg/dL (5-40)
[2022-01-07 07:52] LABS: Vitamin B12 370 pg/mL (211-911)
[2022-01-07 08:08] LABS: Color, Urine Yellow (Yellow); Glucose, Dipstick Normal (Normal); Ketone-Dipstick Negative (Negative); Leukocyte Esterase-Dipstick 500 /ul (Negative); Nitrite-Dipstick Positive (Negative); Occult Blood-Urine Negative /ul (Negative); Protein-Dipstick Negative (Negative); Urine Bilirubin Dipstick Negative (Negative); Urine Clarity Sl. Cloudy (Clear); Urine Urobilinogen Normal (Normal)
[2022-01-07 08:41] LABS: Bacteria 3+ /hpf (None Seen); Squamous Epithelial Cells - UA 0-5 SEEN /hpf (5-10); White Blood Cells 5-10 SEEN /hpf (0-5)
== END | disposition home or self-care (01) ==
LOC: OLS.ACH 05:00
PROVIDERS: PCP Family Medicine; Visit Provider Family Medicine
DX: N39.0 Urinary tract infection, site not specified (principal); E11.22 Type 2 diabetes mellitus with diabetic chronic kidney disease; N18.30 Chronic kidney disease, stage 3 unspecified; E78.00 Pure hypercholesterolemia, unspecified; E03.8 Other specified hypothyroidism; D64.9 Anemia, unspecified
CPT/HCPCS: 36415; 80053; 80061; 81001; 82607; 84443; 85025; 87086; 87088; 87186

== ENCOUNTER → 2022-01-26 | Outpatient (REF) | payer MEDICARE, MEDICAID, SELFPAY ==
[2022-01-26 08:52] LABS: Anion Gap 8 (5-15); BUN 16 mg/dL (7-18); BUN/Creat Ratio 13.3 RATIO (10-20); Calcium,Total 8.5 mg/dL (8.5-10.1); Chloride 102 mmol/L (98-107); EST Glomerular Filtration Rate 46 mL/min (>60); Est Glom Filt Rate - Afr Amer 56 mL/min (>60); Glucose 118 mg/dL (74-106); Potassium 3.7 mmol/L (3.5-5.1); Sodium Level 137 mmol/L (136-145)
[2022-01-26 09:05] LABS: Hemoglobin A1c 7.1 % (3.8-5.6)
== END | disposition home or self-care (01) ==
LOC: OLS.ACH 05:00
PROVIDERS: PCP Family Medicine; Visit Provider Family Medicine
DX: I13.0 Hypertensive heart and chronic kidney disease with heart failure and stage 1 through stage 4 chronic kidney disease, or unspecified chronic kidney disease (principal); E11.22 Type 2 diabetes mellitus with diabetic chronic kidney disease; N18.9 Chronic kidney disease, unspecified
CPT/HCPCS: 36415; 80048; 83036

== ENCOUNTER → 2022-02-23 | Outpatient (REF) | payer MEDICARE, MEDICAID, SELFPAY ==
[2022-02-23 09:44] LABS: Anion Gap 10 (5-15); BUN 21 mg/dL (7-18); BUN/Creat Ratio 15.6 RATIO (10-20); Calcium,Total 8.8 mg/dL (8.5-10.1); Chloride 101 mmol/L (98-107); Creatinine, Serum 1.35 mg/dL (0.55-1.02); EST Glomerular Filtration Rate 40 mL/min (>60); Est Glom Filt Rate - Afr Amer 48 mL/min (>60); Glucose 137 mg/dL (74-106); Potassium 3.7 mmol/L (3.5-5.1); Sodium Level 136 mmol/L (136-145)
== END | disposition home or self-care (01) ==
LOC: OLS.ACH 05:00
PROVIDERS: PCP Family Medicine; Visit Provider Family Medicine
DX: E11.51 Type 2 diabetes mellitus with diabetic peripheral angiopathy without gangrene (principal); E11.22 Type 2 diabetes mellitus with diabetic chronic kidney disease; N18.30 Chronic kidney disease, stage 3 unspecified
CPT/HCPCS: 36415; 80048

== ENCOUNTER → 2022-03-04 | Outpatient (CLI) | payer MEDICARE, MEDICAID, SELFPAY ==
[2022-03-04 15:05] LABS: Absolute Neutrophil Count 5.4 X10^3/uL (2.0-7.7); Basophil# 0.04 X10^3/uL; Basophil% 0.5 % (0-1); Eosinophil# 0.07 X10^3/uL; Eosinophils% 0.9 % (0-5); Hematocrit 38.3 % (37-47); Hemoglobin 12.2 g/dL (12.0-15.0); Lymphocyte % 14.9 % (19-41); Mean Corp Hgb Conc 31.9 g/dL (32-36); Mean Corpuscular Hgb 29.8 pg (27.0-32.0); Mean Corpuscular Volume 93.4 fL (81-99); Mean Platelet Vol. 9.6 fl (6.2-12.0); Monocyte# 0.77 X10^3/uL; Monocyte% 10.4 % (0-10); NRBC Flagged by Analyzer 0 % (0-5); Neutrophil # 5.37 X10^3/uL (2.7-7.7); Platelet Count 267 K/mm3 (150-450); RBC Distribution Width CV 15.2 % (11.6-14.6); RBC Distribution Width SD 52.5 fl (35.1-43.9); White Blood Count 7.4 K/mm3 (4.4-11.0)
--- NOTE | 2022-03-04 15:15 | RAD_ITS ---
STUDY: X-RAY CHEST REASON FOR EXAM: Female, 82 years old. Dyspnea TECHNIQUE: PA and lateral views of the chest. COMPARISON: Previous chest radiographs of 07/07/2018 and 05/24/2018.. FINDINGS: The lungs are clear and expanded. There is no demonstrated pleural abnormality. Normal size heart. Previous median sternotomy. No hilar enlargement or mediastinal widening. Normal visualized pulmonary arteries. Thoracic aorta remains minimally elongated. No acute osseous abnormality. Thoracic degenerative spurring again noted. Cervical fixation plate and screws again demonstrated. Previous cholecystectomy. No free air. RAD/Chest PA and Lateral IMPRESSION: No significant interval change. No acute cardiopulmonary disease process identified. Electronically Signed: Hossein Moreno MD at 6:49 EDT ,
[2022-03-04 16:07] LABS: Anion Gap 9 (5-15); BUN 21 mg/dL (7-18); BUN/Creat Ratio 14.4 RATIO (10-20); Calcium,Total 8.3 mg/dL (8.5-10.1); Chloride 95 mmol/L (98-107); Creatinine, Serum 1.46 mg/dL (0.55-1.02); EST Glomerular Filtration Rate 37 mL/min (>60); Est Glom Filt Rate - Afr Amer 44 mL/min (>60); Glucose 247 mg/dL (74-106); Sodium Level 130 mmol/L (136-145)
[2022-03-04 16:08] LABS: BNP,B-Type NATRIURETIC PEPTIDE 72.4 pg/mL (0-100)
== END | disposition home or self-care (01) ==
PROVIDERS: PCP Family Medicine; Visit Provider Nurse Practitioner Gerontology
DX: R06.00 Dyspnea, unspecified (principal)
CPT/HCPCS: 36415; 71046; 80048; 83880; 85025

== ENCOUNTER → 2022-03-17 | Outpatient (REF) | payer MEDICARE, MEDICAID, SELFPAY ==
[2022-03-17 08:00] LABS: Absolute Neutrophil Count 7.1 X10^3/uL (2.0-7.7); Basophil# 0.05 X10^3/uL; Basophil% 0.5 % (0-1); Eosinophil# 0.25 X10^3/uL; Eosinophils% 2.6 % (0-5); Hematocrit 36.3 % (37-47); Hemoglobin 11.3 g/dL (12.0-15.0); Lymphocyte % 17.5 % (19-41); Mean Corp Hgb Conc 31.1 g/dL (32-36); Mean Corpuscular Hgb 30.1 pg (27.0-32.0); Mean Corpuscular Volume 96.5 fL (81-99); Mean Platelet Vol. 11.1 fl (6.2-12.0); Monocyte# 0.57 X10^3/uL; Monocyte% 5.9 % (0-10); NRBC Flagged by Analyzer 0 % (0-5); Neutrophil # 7.13 X10^3/uL (2.7-7.7); Neutrophil % 73.3 % (47-70); Platelet Count 377 K/mm3 (150-450); RBC Distribution Width CV 15.3 % (11.6-14.6); RBC Distribution Width SD 54.4 fl (35.1-43.9); Red Blood Count 3.76 M/mm3 (4.2-5.4); White Blood Count 9.7 K/mm3 (4.4-11.0)
[2022-03-17 08:20] LABS: ALB/GLOB Ratio 0.8 RATIO (0.9-2.4); AST(SGOT) 27 U/L (15-37); Alanine Aminotransfer ALT/SGPT 19 U/L (13-56); Albumin, Serum 3.1 g/dL (3.2-5.0); Alkaline Phosphatase 89 U/L (45-117); Anion Gap 7 (5-15); BUN 16 mg/dL (7-18); BUN/Creat Ratio 12.7 RATIO (10-20); Chloride 105 mmol/L (98-107); Creatinine, Serum 1.26 mg/dL (0.55-1.02); EST Glomerular Filtration Rate 43 mL/min (>60); Est Glom Filt Rate - Afr Amer 52 mL/min (>60); Globulin 3.8 g/dL (2.2-4.2); Glucose 139 mg/dL (74-106); Potassium 3.8 mmol/L (3.5-5.1); Protein, Total 6.9 g/dL (6.4-8.2); Sodium Level 138 mmol/L (136-145)
== END | disposition home or self-care (01) ==
LOC: OLS.ACH 06:50
PROVIDERS: PCP Family Medicine; Visit Provider Family Medicine
DX: R63.5 Abnormal weight gain (principal)
CPT/HCPCS: 36415; 80053; 85025

== ENCOUNTER → 2022-03-19 | Outpatient (CLI) | payer MEDICARE, MEDICAID, SELFPAY ==
--- NOTE | 2022-03-19 08:49 | ECHOLC_ITS ---
Reason For Study: AORTIC VALVE STENOSIS Procedure This was a 2D Doppler, Color Flow transthoracic echocardiogram. The study was technically difficult. Contrast injection was performed. Exam performed in department. Left Ventricle Left ventricular systolic function is normal. The estimated ejection fraction is 55 %. Septal motion consistent with IVCD. Unable to assess diastolic dysfunction. Right Ventricle Normal RV size. Normal systolic function. Atria Normal left atrium. Normal right atrium. No doppler evidence for ASD. Mitral Valve There is mild mitral annular calcification. Extension of the mitral annular calcification on the base of the posterior mitral valve leaflet. Trivial mitral valve insufficiency. Tricuspid Valve Normal tricuspid valve. Aortic Valve The aortic valve is not well visualized, however, based upon the images obtained there appears to be evidence of diffuse thickening, calcification, and partial restriction. The aortic valve spectral Doppler measurements with respect to the aortic valve mean gradient appears to be compatible with mild aortic valve stenosis. Trivial aortic valve insufficiency. Pulmonic Valve The pulmonic valve is not well visualized. Great Vessels The aortic root is not well visualized. Pericardium/Pleural No pericardial effusion. Medication 22 gauge I.V. with prn adaptor inserted into right arm. Diluted definity 1ml given slow IV push to enhance endocardial definition. MMode/2D Measurements & Calculations LAV(MOD-sp4): 45.4 ml LA A4 area: 18.0 cm2 RA A4 area: 17.5 cm2 Doppler Measurements & Calculations Ao V2 max: 204.4 cm/sec LV V1 max: 134.6 cm/sec Ao max P.8 mmHg LV V1 max P.3 mmHg Ao V2 mean: 146.7 cm/sec LV V1 mean P.8 mmHg Ao mean P.8 mmHg LV V1 mean: 90.2 cm/sec Ao V2 VTI: 41.0 cm LV V1 VTI: 25.4 cm ECHO/Echo Limited w/Contrast Interpretation Summary The study was technically difficult. Contrast injection was performed. Left ventricular systolic function is normal. The estimated ejection fraction is 55 %. There is mild mitral annular calcification. Extension of the mitral annular calcification on the base of the posterior mitr al valve leaflet. Trivial mitral valve insufficiency. The aortic valve is not well visualized, however, based upon the images obtaine d there appears to be evidence of diffuse thickening, calcification, and partial restriction. The aortic valve spectral Doppler measurements with respect to the aortic valve mean gradient appears to be compatible with mild aortic valve stenosis. Trivial aortic valve insufficiency. Unable to assess diastolic dysfunction. Ordering Physician: Alondra Avelar Referring Physician: Alondra Avelar Performed By: Myriam Goodrich RCS
== END | disposition home or self-care (01) ==
LOC: CVS 08:48
PROVIDERS: PCP Family Medicine; Referring Provider Nurse Practitioner Gerontology; Visit Provider Nurse Practitioner Gerontology
DX: I35.0 Nonrheumatic aortic (valve) stenosis (principal)
CPT/HCPCS: 93308; Q9957; A4216; C8924

== ENCOUNTER → 2022-03-23 | Outpatient (REF) | payer MEDICARE, MEDICAID, SELFPAY ==
[2022-03-23 08:26] LABS: Anion Gap 9 (5-15); BUN 21 mg/dL (7-18); BUN/Creat Ratio 18.1 RATIO (10-20); Calcium,Total 8.8 mg/dL (8.5-10.1); Chloride 103 mmol/L (98-107); Creatinine, Serum 1.16 mg/dL (0.55-1.02); EST Glomerular Filtration Rate 48 mL/min (>60); Est Glom Filt Rate - Afr Amer 58 mL/min (>60); Glucose 81 mg/dL (74-106); Potassium 3.4 mmol/L (3.5-5.1); Sodium Level 140 mmol/L (136-145)
== END | disposition home or self-care (01) ==
LOC: OLS.ACH 04:00
PROVIDERS: PCP Family Medicine; Referring Provider Family Medicine; Visit Provider Family Medicine
DX: I13.0 Hypertensive heart and chronic kidney disease with heart failure and stage 1 through stage 4 chronic kidney disease, or unspecified chronic kidney disease (principal); I50.9 Heart failure, unspecified; N18.9 Chronic kidney disease, unspecified
CPT/HCPCS: 36415; 80048

== ENCOUNTER → 2022-04-20 | Outpatient (REF) | payer MEDICARE, MEDICAID, SELFPAY ==
[2022-04-20 08:48] LABS: Anion Gap 8 (5-15); BUN 17 mg/dL (7-18); BUN/Creat Ratio 13.9 RATIO (10-20); Calcium,Total 8.5 mg/dL (8.5-10.1); Chloride 104 mmol/L (98-107); Creatinine, Serum 1.22 mg/dL (0.55-1.02); EST Glomerular Filtration Rate 45 mL/min (>60); Est Glom Filt Rate - Afr Amer 54 mL/min (>60); Glucose 106 mg/dL (74-106); Potassium 3.5 mmol/L (3.5-5.1); Sodium Level 139 mmol/L (136-145)
[2022-04-20 08:52] LABS: Hemoglobin A1c 6.6 % (3.8-5.6)
== END ==
LOC: OLS.ACH 04:00
PROVIDERS: PCP Family Medicine; Referring Provider Family Medicine; Visit Provider Family Medicine
DX: E11.22 Type 2 diabetes mellitus with diabetic chronic kidney disease (principal); I13.0 Hypertensive heart and chronic kidney disease with heart failure and stage 1 through stage 4 chronic kidney disease, or unspecified chronic kidney disease; N18.9 Chronic kidney disease, unspecified
CPT/HCPCS: 36415; 80048; 83036

== ENCOUNTER → 2022-05-19 | Outpatient (REF) | payer MEDICARE, MEDICAID, SELFPAY ==
[2022-05-19 10:02] LABS: Anion Gap 12 (5-15); BUN 18 mg/dL (7-18); BUN/Creat Ratio 14.1 RATIO (10-20); Calcium,Total 8.8 mg/dL (8.5-10.1); Chloride 101 mmol/L (98-107); Creatinine, Serum 1.28 mg/dL (0.55-1.02); EST Glomerular Filtration Rate 43 mL/min (>60); Est Glom Filt Rate - Afr Amer 51 mL/min (>60); Glucose 146 mg/dL (74-106); Sodium Level 138 mmol/L (136-145)
== END ==
LOC: OLS.ACH 05:00
PROVIDERS: PCP Family Medicine; Visit Provider Family Medicine
DX: I13.0 Hypertensive heart and chronic kidney disease with heart failure and stage 1 through stage 4 chronic kidney disease, or unspecified chronic kidney disease (principal); I50.9 Heart failure, unspecified; N18.9 Chronic kidney disease, unspecified
CPT/HCPCS: 36415; 80048

== ENCOUNTER → 2022-06-15 | Outpatient (REF) | payer MEDICARE, MEDICAID, SELFPAY ==
[2022-06-15 10:27] LABS: Anion Gap 11 (5-15); BUN 18 mg/dL (7-18); BUN/Creat Ratio 14.5 RATIO (10-20); Calcium,Total 8.7 mg/dL (8.5-10.1); Chloride 103 mmol/L (98-107); Creatinine, Serum 1.24 mg/dL (0.55-1.02); EST Glomerular Filtration Rate 44 mL/min (>60); Est Glom Filt Rate - Afr Amer 53 mL/min (>60); Glucose 156 mg/dL (74-106); Potassium 4.1 mmol/L (3.5-5.1); Sodium Level 137 mmol/L (136-145)
== END ==
LOC: OLS.ACH 05:00
PROVIDERS: PCP Family Medicine; Visit Provider Family Medicine
DX: E11.22 Type 2 diabetes mellitus with diabetic chronic kidney disease (principal); N18.9 Chronic kidney disease, unspecified
CPT/HCPCS: 36415; 80048

== ENCOUNTER → 2022-07-13 | Outpatient (REF) | payer MEDICARE, MEDICAID, SELFPAY ==
[2022-07-13 08:34] LABS: Anion Gap 7 (5-15); BUN 17 mg/dL (7-18); Calcium,Total 8.8 mg/dL (8.5-10.1); Chloride 105 mmol/L (98-107); Creatinine, Serum 1.21 mg/dL (0.55-1.02); EST Glomerular Filtration Rate 45 mL/min (>60); Est Glom Filt Rate - Afr Amer 55 mL/min (>60); Glucose 226 mg/dL (74-106); Potassium 3.9 mmol/L (3.5-5.1); Sodium Level 138 mmol/L (136-145)
[2022-07-13 08:35] LABS: Hemoglobin A1c 7.2 % (3.8-5.6)
== END ==
LOC: OLS.ACH 05:00
PROVIDERS: PCP Family Medicine; Visit Provider Family Medicine
DX: I13.0 Hypertensive heart and chronic kidney disease with heart failure and stage 1 through stage 4 chronic kidney disease, or unspecified chronic kidney disease (principal); E11.22 Type 2 diabetes mellitus with diabetic chronic kidney disease; N18.9 Chronic kidney disease, unspecified
CPT/HCPCS: 36415; 80048; 83036

== ENCOUNTER → 2022-08-10 | Outpatient (REF) | payer MEDICARE, MEDICAID, SELFPAY ==
[2022-08-10 08:33] LABS: Anion Gap 9 (5-15); BUN 23 mg/dL (7-18); BUN/Creat Ratio 16.5 RATIO (10-20); Calcium,Total 8.6 mg/dL (8.5-10.1); Chloride 101 mmol/L (98-107); Creatinine, Serum 1.39 mg/dL (0.55-1.02); EST Glomerular Filtration Rate 39 mL/min (>60); Est Glom Filt Rate - Afr Amer 47 mL/min (>60); Glucose 228 mg/dL (74-106); Sodium Level 134 mmol/L (136-145)
== END ==
LOC: OLS.ACH 05:00
PROVIDERS: PCP Family Medicine; Visit Provider Family Medicine
DX: I13.0 Hypertensive heart and chronic kidney disease with heart failure and stage 1 through stage 4 chronic kidney disease, or unspecified chronic kidney disease (principal); I50.9 Heart failure, unspecified; N18.9 Chronic kidney disease, unspecified
CPT/HCPCS: 36415; 80048

== ENCOUNTER → 2022-09-02 | Outpatient (REF) | payer MEDICARE, MEDICAID, SELFPAY ==
[2022-09-02 09:14] LABS: Vitamin D,25 Hydroxy 93.2 ng/mL
[2022-09-02 09:29] LABS: Thyroid Stim Hormone (TSH) 1.14 uIU/mL (0.358-3.74)
== END ==
LOC: OLS.ACH 05:00
PROVIDERS: PCP Family Medicine; Visit Provider Family Medicine
DX: E11.22 Type 2 diabetes mellitus with diabetic chronic kidney disease (principal); E03.8 Other specified hypothyroidism; N18.30 Chronic kidney disease, stage 3 unspecified
CPT/HCPCS: 36415; 82306; 84443

== ENCOUNTER → 2022-09-08 | Outpatient (REF) | payer MEDICARE, MEDICAID, SELFPAY ==
[2022-09-08 11:04] LABS: Anion Gap 7 (5-15); BUN 17 mg/dL (7-18); Calcium,Total 9.4 mg/dL (8.5-10.1); Chloride 102 mmol/L (98-107); Creatinine, Serum 1.21 mg/dL (0.55-1.02); EST Glomerular Filtration Rate 45 mL/min (>60); Est Glom Filt Rate - Afr Amer 55 mL/min (>60); Glucose 161 mg/dL (74-106); Sodium Level 136 mmol/L (136-145)
== END ==
LOC: OLS.ACH 04:00
PROVIDERS: PCP Family Medicine; Visit Provider Family Medicine
DX: I13.0 Hypertensive heart and chronic kidney disease with heart failure and stage 1 through stage 4 chronic kidney disease, or unspecified chronic kidney disease (principal); N18.9 Chronic kidney disease, unspecified
CPT/HCPCS: 36415; 80048

== ENCOUNTER → 2022-10-07 | Outpatient (REF) | payer MEDICARE, MEDICAID, SELFPAY ==
[2022-10-07 09:35] LABS: Anion Gap 8 (5-15); BUN 17 mg/dL (7-18); BUN/Creat Ratio 13.7 RATIO (10-20); Calcium,Total 8.6 mg/dL (8.5-10.1); Chloride 104 mmol/L (98-107); Creatinine, Serum 1.24 mg/dL (0.55-1.02); EST Glomerular Filtration Rate 44 mL/min (>60); Est Glom Filt Rate - Afr Amer 53 mL/min (>60); Glucose 84 mg/dL (74-106); Potassium 3.8 mmol/L (3.5-5.1); Sodium Level 138 mmol/L (136-145)
[2022-10-07 09:45] LABS: Hemoglobin A1c 7.3 % (3.8-5.6)
== END ==
LOC: OLS.ACH 05:00
PROVIDERS: PCP Family Medicine; Visit Provider Internal Medicine
DX: E11.22 Type 2 diabetes mellitus with diabetic chronic kidney disease (principal); N18.9 Chronic kidney disease, unspecified
CPT/HCPCS: 36415; 80048; 83036

== ENCOUNTER → 2022-10-27 | Outpatient (REF) | payer MEDICARE, MEDICAID, SELFPAY ==
[2022-10-27 08:24] LABS: Hematocrit 36.2 % (37-47); Hemoglobin 11.2 g/dL (12.0-15.0); Mean Corp Hgb Conc 30.9 g/dL (32-36); Mean Corpuscular Volume 97.1 fL (81-99); Mean Platelet Vol. 13.4 fl (6.2-12.0); Platelet Count 309 K/mm3 (150-450); RBC Distribution Width CV 14.9 % (11.6-14.6); RBC Distribution Width SD 53.3 fl (35.1-43.9); Red Blood Count 3.73 M/mm3 (4.2-5.4); White Blood Count 9.1 K/mm3 (4.4-11.0)
[2022-10-27 08:45] LABS: ALB/GLOB Ratio 0.8 RATIO (0.9-2.4); AST(SGOT) 12 U/L (15-37); Alanine Aminotransfer ALT/SGPT 14 U/L (13-56); Albumin, Serum 3.1 g/dL (3.2-5.0); Alkaline Phosphatase 85 U/L (45-117); Anion Gap 8 (5-15); BUN 24 mg/dL (7-18); BUN/Creat Ratio 17.3 RATIO (10-20); Calcium,Total 8.9 mg/dL (8.5-10.1); Chloride 103 mmol/L (98-107); Creatinine, Serum 1.39 mg/dL (0.55-1.02); EST Glomerular Filtration Rate 39 mL/min (>60); Est Glom Filt Rate - Afr Amer 47 mL/min (>60); Globulin 4.1 g/dL (2.2-4.2); Glucose 211 mg/dL (74-106); Potassium 4.3 mmol/L (3.5-5.1); Protein, Total 7.2 g/dL (6.4-8.2); Sodium Level 139 mmol/L (136-145)
== END ==
LOC: OLS.ACH 05:00
PROVIDERS: PCP Family Medicine; Visit Provider Internal Medicine
DX: R05.9 Cough, unspecified (principal); R09.81 Nasal congestion; R06.02 Shortness of breath
CPT/HCPCS: 36415; 80053; 85027; 87633; 87804

== ENCOUNTER → 2022-11-04 | Outpatient (REF) | payer MEDICARE, MEDICAID, SELFPAY ==
[2022-11-04 08:59] LABS: Anion Gap 9 (5-15); BUN 26 mg/dL (7-18); BUN/Creat Ratio 21.5 RATIO (10-20); Chloride 104 mmol/L (98-107); Creatinine, Serum 1.21 mg/dL (0.55-1.02); EST Glomerular Filtration Rate 45 mL/min (>60); Est Glom Filt Rate - Afr Amer 55 mL/min (>60); Glucose 144 mg/dL (74-106); Sodium Level 138 mmol/L (136-145)
== END | disposition home or self-care (01) ==
LOC: OLS.ACH 05:00
PROVIDERS: PCP Family Medicine; Visit Provider Internal Medicine
DX: I13.0 Hypertensive heart and chronic kidney disease with heart failure and stage 1 through stage 4 chronic kidney disease, or unspecified chronic kidney disease (principal); I50.9 Heart failure, unspecified; N18.9 Chronic kidney disease, unspecified
CPT/HCPCS: 36415; 80048

== ENCOUNTER → 2022-12-02 | Outpatient (REF) | payer MEDICARE, MEDICAID, SELFPAY ==
[2022-12-02 10:00] LABS: Anion Gap 7 (5-15); BUN 22 mg/dL (7-18); Calcium,Total 8.5 mg/dL (8.5-10.1); Chloride 103 mmol/L (98-107); Creatinine, Serum 1.22 mg/dL (0.55-1.02); EST Glomerular Filtration Rate 45 mL/min (>60); Est Glom Filt Rate - Afr Amer 54 mL/min (>60); Glucose 135 mg/dL (74-106); Potassium 3.6 mmol/L (3.5-5.1); Sodium Level 137 mmol/L (136-145)
== END ==
LOC: OLS.ACH 05:00
PROVIDERS: PCP Family Medicine; Visit Provider Internal Medicine
DX: I13.0 Hypertensive heart and chronic kidney disease with heart failure and stage 1 through stage 4 chronic kidney disease, or unspecified chronic kidney disease (principal); I50.9 Heart failure, unspecified; N18.9 Chronic kidney disease, unspecified
CPT/HCPCS: 36415; 80048

== ENCOUNTER → 2022-12-07 | Outpatient (REF) | payer MEDICARE, MEDICAID, SELFPAY | LOC: OLS.ACH 15:30 | PROVIDERS: PCP Family Medicine; Visit Provider Internal Medicine | DX: Z20.828 Contact with and (suspected) exposure to other viral communicable diseases (principal); B34.9 Viral infection, unspecified ==

== ENCOUNTER → 2022-12-30 | Outpatient (REF) | payer MEDICARE, MEDICAID, SELFPAY ==
[2022-12-30 10:46] LABS: Hemoglobin A1c 7.3 % (3.8-5.6)
== END ==
LOC: OLS.ACH 05:00
PROVIDERS: PCP Family Medicine; Visit Provider Internal Medicine
DX: E11.22 Type 2 diabetes mellitus with diabetic chronic kidney disease (principal); N18.9 Chronic kidney disease, unspecified
CPT/HCPCS: 36415; 83036

== ENCOUNTER → 2023-01-06 | Outpatient (REF) | payer MEDICARE, MEDICAID, SELFPAY ==
[2023-01-06 08:04] LABS: Cholesterol 169 mg/dL (200); High Density Lipoprotein 52 mg/dL; Thyroid Stim Hormone (TSH) 2.17 uIU/mL (0.358-3.74); Triglycerides 104 mg/dL; Very Low Density Lipoprotein 21 mg/dL (5-40)
== END ==
LOC: OLS.ACH 05:00
PROVIDERS: PCP Family Medicine; Visit Provider Internal Medicine
DX: E78.00 Pure hypercholesterolemia, unspecified (principal); E03.8 Other specified hypothyroidism
CPT/HCPCS: 36415; 80061; 84443

== ENCOUNTER → 2023-01-19 | Outpatient (CLI) | payer MEDICARE, MEDICAID, SELFPAY ==
[2023-01-19 11:22] LABS: Absolute Lymphocyte Count 1.45 X10^3/uL (0.83-4.51); Absolute Neutrophil Count 7.9 X10^3/uL (2.0-7.7); Basophil# 0.06 X10^3/uL; Basophil% 0.6 % (0-1); Eosinophil# 0.23 X10^3/uL; Eosinophils% 2.2 % (0-5); Hematocrit 37.8 % (37-47); Hemoglobin 11.6 g/dL (12.0-15.0); Lymphocyte # 1.45 X10^3/ul (0.83-4.51); Mean Corp Hgb Conc 30.7 g/dL (32-36); Mean Corpuscular Hgb 29.7 pg (27.0-32.0); Mean Corpuscular Volume 96.7 fL (81-99); Mean Platelet Vol. 10.5 fl (6.2-12.0); Monocyte# 0.61 X10^3/uL; Monocyte% 5.9 % (0-10); NRBC Flagged by Analyzer 0 % (0-5); Neutrophil # 7.94 X10^3/uL (2.7-7.7); Neutrophil % 76.9 % (47-70); Platelet Count 315 K/mm3 (150-450); RBC Distribution Width CV 15.2 % (11.6-14.6); RBC Distribution Width SD 53.8 fl (35.1-43.9); Red Blood Count 3.91 M/mm3 (4.2-5.4); White Blood Count 10.3 K/mm3 (4.4-11.0)
[2023-01-19 11:43] LABS: Anion Gap 6 (5-15); BUN 19 mg/dL (7-18); BUN/Creat Ratio 14.4 RATIO (10-20); Calcium,Total 8.7 mg/dL (8.5-10.1); Chloride 105 mmol/L (98-107); Creatinine, Serum 1.32 mg/dL (0.55-1.02); EST Glomerular Filtration Rate 41 mL/min (>60); Est Glom Filt Rate - Afr Amer 50 mL/min (>60); Glucose 264 mg/dL (74-106); Potassium 4.2 mmol/L (3.5-5.1); Sodium Level 137 mmol/L (136-145)
[2023-01-19 11:46] LABS: BNP,B-Type NATRIURETIC PEPTIDE 91.8 pg/mL (0-100)
== END | disposition home or self-care (01) ==
LOC: LAB 10:55
PROVIDERS: PCP Family Medicine; Referring Provider Nurse Practitioner Gerontology; Visit Provider Nurse Practitioner Gerontology
DX: R06.00 Dyspnea, unspecified (principal); R53.83 Other fatigue
CPT/HCPCS: 36415; 80048; 83880; 85025

== ENCOUNTER → 2023-02-17 | Outpatient (REF) | payer MEDICARE, MEDICAID, SELFPAY ==
[2023-02-17 10:04] LABS: Vitamin D,25 Hydroxy 72.9 ng/mL
== END ==
LOC: OLS.ACH 05:00
PROVIDERS: PCP Family Medicine; Visit Provider Internal Medicine
DX: E03.8 Other specified hypothyroidism (principal); E11.22 Type 2 diabetes mellitus with diabetic chronic kidney disease; N18.9 Chronic kidney disease, unspecified; E55.9 Vitamin D deficiency, unspecified
CPT/HCPCS: 36415; 82306; 84443

== ENCOUNTER → 2023-03-09 | Outpatient (REF) | payer MEDICARE, MEDICAID, SELFPAY ==
[2023-03-09 09:45] LABS: Hematocrit 38.4 % (37-47); Hemoglobin 11.9 g/dL (12.0-15.0); Mean Corpuscular Hgb 29.9 pg (27.0-32.0); Mean Corpuscular Volume 96.5 fL (81-99); Mean Platelet Vol. 11.9 fl (6.2-12.0); Platelet Count 340 K/mm3 (150-450); RBC Distribution Width CV 14.9 % (11.6-14.6); RBC Distribution Width SD 52.6 fl (35.1-43.9); Red Blood Count 3.98 M/mm3 (4.2-5.4); White Blood Count 10.5 K/mm3 (4.4-11.0)
[2023-03-09 09:54] LABS: ALB/GLOB Ratio 0.8 RATIO (0.9-2.4); AST(SGOT) 15 U/L (15-37); Alanine Aminotransfer ALT/SGPT 18 U/L (13-56); Albumin, Serum 3.3 g/dL (3.2-5.0); Alkaline Phosphatase 94 U/L (45-117); Anion Gap 7 (5-15); BUN 19 mg/dL (7-18); BUN/Creat Ratio 13.8 RATIO (10-20); Calcium,Total 9.1 mg/dL (8.5-10.1); Chloride 104 mmol/L (98-107); Creatinine, Serum 1.38 mg/dL (0.55-1.02); EST Glomerular Filtration Rate 39 mL/min (>60); Est Glom Filt Rate - Afr Amer 47 mL/min (>60); Globulin 4.4 g/dL (2.2-4.2); Glucose 167 mg/dL (74-106); Potassium 3.6 mmol/L (3.5-5.1); Protein, Total 7.7 g/dL (6.4-8.2); Sodium Level 137 mmol/L (136-145)
== END ==
LOC: OLS.ACH 05:00
PROVIDERS: PCP Family Medicine; Referring Provider Internal Medicine; Visit Provider Internal Medicine
DX: E11.22 Type 2 diabetes mellitus with diabetic chronic kidney disease (principal); N18.30 Chronic kidney disease, stage 3 unspecified; D63.1 Anemia in chronic kidney disease
CPT/HCPCS: 36415; 80053; 85027

== ENCOUNTER → 2023-03-24 | Outpatient (REF) | payer MEDICARE, MEDICAID, SELFPAY ==
[2023-03-24 09:43] LABS: Hemoglobin A1c 7.5 % (3.8-5.6)
== END ==
LOC: OLS.ACH 05:00
PROVIDERS: PCP Family Medicine; Visit Provider Internal Medicine
DX: E11.22 Type 2 diabetes mellitus with diabetic chronic kidney disease (principal); N18.9 Chronic kidney disease, unspecified
CPT/HCPCS: 36415; 83036

== ENCOUNTER → 2023-06-16 | Outpatient (REF) | payer MEDICARE, MEDICAID, SELFPAY ==
[2023-06-16 12:38] LABS: Hemoglobin A1c 7.3 % (3.8-5.6)
== END ==
LOC: OLS.ACH 05:34
PROVIDERS: PCP Family Medicine; Visit Provider Internal Medicine
DX: E11.22 Type 2 diabetes mellitus with diabetic chronic kidney disease (principal); N18.9 Chronic kidney disease, unspecified
CPT/HCPCS: 36415; 83036

== ENCOUNTER → 2023-08-04 | Outpatient (REF) | payer MEDICARE, MEDICAID, SELFPAY ==
[2023-08-04 07:53] LABS: Thyroid Stim Hormone (TSH) 2.36 uIU/mL (0.358-3.74)
[2023-08-04 08:41] LABS: Vitamin D,25 Hydroxy 83.3 ng/mL
== END ==
LOC: OLS.ACH 05:00
PROVIDERS: PCP Family Medicine; Visit Provider Internal Medicine
DX: E11.22 Type 2 diabetes mellitus with diabetic chronic kidney disease (principal); N18.9 Chronic kidney disease, unspecified; E03.8 Other specified hypothyroidism; E55.9 Vitamin D deficiency, unspecified
CPT/HCPCS: 36415; 82306; 84443

== ENCOUNTER → 2023-09-08 | Outpatient (REF) | payer MEDICARE, MEDICAID, SELFPAY ==
[2023-09-08 09:36] LABS: Hemoglobin A1c 6.7 % (3.8-5.6)
== END ==
LOC: OLS.ACH 05:00
PROVIDERS: PCP Family Medicine; Visit Provider Internal Medicine
DX: E11.22 Type 2 diabetes mellitus with diabetic chronic kidney disease (principal); N18.9 Chronic kidney disease, unspecified
CPT/HCPCS: 36415; 83036

== ENCOUNTER → 2023-11-19 | Outpatient (REF) | payer MEDICARE, MEDICAID, SELFPAY ==
[2023-11-19 09:44] LABS: Anion Gap 6 (5-15); BUN 21 mg/dL (7-18); BUN/Creat Ratio 16.4 RATIO (10-20); Calcium,Total 8.9 mg/dL (8.5-10.1); Chloride 106 mmol/L (98-107); Creatinine, Serum 1.28 mg/dL (0.55-1.02); EST Glomerular Filtration Rate 42 mL/min (>60); Est Glom Filt Rate - Afr Amer 51 mL/min (>60); Glucose 124 mg/dL (74-106); Potassium 3.6 mmol/L (3.5-5.1); Sodium Level 139 mmol/L (136-145)
== END ==
LOC: OLS.ACH 05:00
PROVIDERS: PCP Family Medicine; Visit Provider Internal Medicine
DX: I50.20 Unspecified systolic (congestive) heart failure (principal)
CPT/HCPCS: 36415; 80048

== ENCOUNTER → 2023-12-01 | Outpatient (REF) | payer MEDICARE, MEDICAID, SELFPAY ==
[2023-12-01 10:14] LABS: Hemoglobin A1c 6.3 % (3.8-5.6)
== END ==
LOC: OLS.ACH 05:00
PROVIDERS: PCP Family Medicine; Visit Provider Internal Medicine
DX: E11.22 Type 2 diabetes mellitus with diabetic chronic kidney disease (principal); N18.9 Chronic kidney disease, unspecified
CPT/HCPCS: 36415; 83036

== ENCOUNTER → 2024-01-05 | Outpatient (REF) | payer MEDICARE, MEDICAID, SELFPAY ==
[2024-01-05 09:09] LABS: Cholesterol 169 mg/dL (200); High Density Lipoprotein 52 mg/dL; Thyroid Stim Hormone (TSH) 0.74 uIU/mL (0.358-3.74); Triglycerides 124 mg/dL; Very Low Density Lipoprotein 25 mg/dL (5-40)
== END ==
LOC: OLS.ACH 05:45
PROVIDERS: PCP Family Medicine; Referring Provider Internal Medicine; Visit Provider Internal Medicine
DX: E78.00 Pure hypercholesterolemia, unspecified (principal); E03.9 Hypothyroidism, unspecified
CPT/HCPCS: 36415; 80061; 84443

== ENCOUNTER → 2024-01-19 05:00 | Outpatient (REF) | payer MEDICARE, MEDICAID, SELFPAY ==
[2024-01-19 07:11] LABS: Thyroid Stim Hormone (TSH) 1.04 uIU/mL (0.358-3.74)
[2024-01-19 08:05] LABS: Vitamin D,25 Hydroxy 82.9 ng/mL
== END ==
LOC: OLS.ACH 05:00
PROVIDERS: PCP Family Medicine; Visit Provider Internal Medicine
DX: E11.22 Type 2 diabetes mellitus with diabetic chronic kidney disease (principal); N18.9 Chronic kidney disease, unspecified; E03.8 Other specified hypothyroidism
CPT/HCPCS: 36415; 82306; 84443

== ENCOUNTER → 2024-01-24 | Outpatient (REF) | payer MEDICARE, MEDICAID, SELFPAY ==
[2024-01-24 10:06] LABS: Hemoglobin 10.4 g/dL (12.0-15.0); Mean Corp Hgb Conc 30.6 g/dL (32-36); Mean Corpuscular Hgb 29.4 pg (27.0-32.0); Mean Platelet Vol. 15.3 fl (6.2-12.0); Platelet Count 277 K/mm3 (150-450); RBC Distribution Width CV 15.3 % (11.6-14.6); RBC Distribution Width SD 54.1 fl (35.1-43.9); Red Blood Count 3.54 M/mm3 (4.2-5.4); White Blood Count 9.9 K/mm3 (4.4-11.0)
[2024-01-24 10:32] LABS: ALB/GLOB Ratio 0.8 RATIO (0.9-2.4); AST(SGOT) 14 U/L (15-37); Alanine Aminotransfer ALT/SGPT 15 U/L (13-56); Alkaline Phosphatase 72 U/L (45-117); Anion Gap 6 (5-15); BUN 24 mg/dL (7-18); BUN/Creat Ratio 17.9 RATIO (10-20); Calcium,Total 8.6 mg/dL (8.5-10.1); Chloride 108 mmol/L (98-107); Creatinine, Serum 1.34 mg/dL (0.55-1.02); EST Glomerular Filtration Rate 40 mL/min (>60); Est Glom Filt Rate - Afr Amer 49 mL/min (>60); Globulin 3.9 g/dL (2.2-4.2); Glucose 114 mg/dL (74-106); Potassium 3.9 mmol/L (3.5-5.1); Protein, Total 6.9 g/dL (6.4-8.2); Sodium Level 139 mmol/L (136-145)
== END ==
LOC: OLS.ACH 05:00
PROVIDERS: PCP Family Medicine; Visit Provider Internal Medicine
DX: E11.22 Type 2 diabetes mellitus with diabetic chronic kidney disease (principal); N18.9 Chronic kidney disease, unspecified; E03.8 Other specified hypothyroidism
CPT/HCPCS: 36415; 80053; 85027

== ENCOUNTER → 2024-02-24 06:55 | Outpatient (REF) | payer MEDICARE, MEDICAID, SELFPAY ==
[2024-02-24 15:42] LABS: Hemoglobin A1c 6.1 % (3.8-5.6)
== END ==
LOC: OLS.ACH 06:55
PROVIDERS: PCP Family Medicine; Visit Provider Internal Medicine
DX: E11.22 Type 2 diabetes mellitus with diabetic chronic kidney disease (principal); E11.21 Type 2 diabetes mellitus with diabetic nephropathy
CPT/HCPCS: 36415; 83036

== ENCOUNTER → 2024-03-07 19:41 | Outpatient (REF) | payer MEDICARE, MEDICAID, SELFPAY ==
[2024-03-07 09:17] LABS: Color, Urine Yellow (Yellow); Glucose, Dipstick Normal (Normal); Ketone-Dipstick Negative (Negative); Leukocyte Esterase-Dipstick 500 /ul (Negative); Nitrite-Dipstick Negative (Negative); Occult Blood-Urine Negative /ul (Negative); Protein-Dipstick Negative (Negative); Urine Bilirubin Dipstick Negative (Negative); Urine Clarity Clear (Clear); Urine Urobilinogen Normal (Normal)
[2024-03-07 09:36] LABS: Bacteria 2+ /hpf (None Seen); Mucous, Urine 0 SEEN /hpf (<or=2+); Red Blood Cells-Urine 0 SEEN /hpf (0-5); Squamous Epithelial Cells - UA 0-5 SEEN /hpf (5-10); White Blood Cells 10-25 SEEN /hpf (0-5)
== END ==
LOC: OLS.ACH 19:41
PROVIDERS: PCP Family Medicine; Visit Provider Internal Medicine
DX: R30.0 Dysuria (principal)
CPT/HCPCS: 81001; 87077; 87086; 87088

== ENCOUNTER → 2024-03-21 05:00 | Outpatient (REF) | payer MEDICARE, MEDICAID, SELFPAY ==
[2024-03-21 09:39] LABS: Hematocrit 36.8 % (37-47); Hemoglobin 11.3 g/dL (12.0-15.0); Mean Corp Hgb Conc 30.7 g/dL (32-36); Mean Corpuscular Hgb 29.4 pg (27.0-32.0); Mean Corpuscular Volume 95.8 fL (81-99); Mean Platelet Vol. 13.8 fl (6.2-12.0); Platelet Count 355 K/mm3 (150-450); RBC Distribution Width CV 15.3 % (11.6-14.6); RBC Distribution Width SD 53.2 fl (35.1-43.9); Red Blood Count 3.84 M/mm3 (4.2-5.4); White Blood Count 11.6 K/mm3 (4.4-11.0)
[2024-03-21 09:56] LABS: ALB/GLOB Ratio 0.7 RATIO (0.9-2.4); AST(SGOT) 25 U/L (15-37); Alanine Aminotransfer ALT/SGPT 15 U/L (13-56); Albumin, Serum 3.1 g/dL (3.2-5.0); Alkaline Phosphatase 80 U/L (45-117); Anion Gap 5 (5-15); BUN 24 mg/dL (7-18); BUN/Creat Ratio 18.3 RATIO (10-20); Chloride 105 mmol/L (98-107); Creatinine, Serum 1.31 mg/dL (0.55-1.02); EST Glomerular Filtration Rate 41 mL/min (>60); Est Glom Filt Rate - Afr Amer 50 mL/min (>60); Globulin 4.5 g/dL (2.2-4.2); Glucose 128 mg/dL (74-106); Potassium 3.6 mmol/L (3.5-5.1); Protein, Total 7.6 g/dL (6.4-8.2); Sodium Level 138 mmol/L (136-145)
== END ==
LOC: OLS.ACH 05:00
PROVIDERS: PCP Family Medicine; Referring Provider Internal Medicine; Visit Provider Internal Medicine
DX: E11.22 Type 2 diabetes mellitus with diabetic chronic kidney disease (principal); N18.9 Chronic kidney disease, unspecified; D64.9 Anemia, unspecified; E78.00 Pure hypercholesterolemia, unspecified
CPT/HCPCS: 36415; 80053; 85027

== ENCOUNTER → 2024-03-22 04:00 | Outpatient (REF) | payer MEDICARE, MEDICAID, SELFPAY ==
[2024-03-22 09:17] LABS: Hematocrit 33.3 % (37-47); Hemoglobin 10.2 g/dL (12.0-15.0); Mean Corp Hgb Conc 30.6 g/dL (32-36); Mean Corpuscular Hgb 28.4 pg (27.0-32.0); Mean Corpuscular Volume 92.8 fL (81-99); Mean Platelet Vol. 14.2 fl (6.2-12.0); Platelet Count 304 K/mm3 (150-450); RBC Distribution Width CV 15.2 % (11.6-14.6); RBC Distribution Width SD 51.7 fl (35.1-43.9); Red Blood Count 3.59 M/mm3 (4.2-5.4)
== END ==
LOC: OLS.ACH 04:00
PROVIDERS: PCP Family Medicine; Referring Provider Internal Medicine; Visit Provider Internal Medicine
DX: E11.22 Type 2 diabetes mellitus with diabetic chronic kidney disease (principal); N18.9 Chronic kidney disease, unspecified
CPT/HCPCS: 36415; 85027

== ENCOUNTER → 2024-05-10 05:00 | Outpatient (REF) | payer MEDICARE, MEDICAID, SELFPAY ==
[2024-05-10 09:11] LABS: Mucous, Urine 0 SEEN /hpf (<or=2+); Red Blood Cells-Urine 0 SEEN /hpf (0-5)
[2024-05-10 09:17] LABS: Color, Urine Yellow (Yellow); Glucose, Dipstick Normal (Normal); Ketone-Dipstick Negative (Negative); Leukocyte Esterase-Dipstick 100 /ul (Negative); Nitrite-Dipstick Positive (Negative); Occult Blood-Urine Negative /ul (Negative); Protein-Dipstick Negative (Negative); Specific Gravity, Urine 1.015 (1.002-1.030); Urine Bilirubin Dipstick Negative (Negative); Urine Clarity Cloudy (Clear); Urine Urobilinogen Normal (Normal)
[2024-05-10 09:18] LABS: Hematocrit 36.2 % (37-47); Mean Corp Hgb Conc 30.4 g/dL (32-36); Mean Corpuscular Hgb 29.3 pg (27.0-32.0); Mean Corpuscular Volume 96.5 fL (81-99); Mean Platelet Vol. 14.1 fl (6.2-12.0); Platelet Count 300 K/mm3 (150-450); RBC Distribution Width CV 16.3 % (11.6-14.6); RBC Distribution Width SD 58.3 fl (35.1-43.9); Red Blood Count 3.75 M/mm3 (4.2-5.4); White Blood Count 12.8 K/mm3 (4.4-11.0)
[2024-05-10 09:32] LABS: Bacteria 2+ /hpf (None Seen); Squamous Epithelial Cells - UA 0-5 SEEN /hpf (5-10); White Blood Cells 0-5 SEEN /hpf (0-5)
[2024-05-10 09:33] LABS: Triple Phosphate Crystals Ur RARE /hpf (<or=1+)
[2024-05-10 09:35] LABS: ALB/GLOB Ratio 0.7 RATIO (0.9-2.4); AST(SGOT) 20 U/L (15-37); Alanine Aminotransfer ALT/SGPT 19 U/L (13-56); Albumin, Serum 3.1 g/dL (3.2-5.0); Alkaline Phosphatase 77 U/L (45-117); Anion Gap 8 (5-15); BUN 17 mg/dL (7-18); BUN/Creat Ratio 13.2 RATIO (10-20); Calcium,Total 9.1 mg/dL (8.5-10.1); Chloride 107 mmol/L (98-107); Creatinine, Serum 1.29 mg/dL (0.55-1.02); EST Glomerular Filtration Rate 42 mL/min (>60); Est Glom Filt Rate - Afr Amer 51 mL/min (>60); Globulin 4.3 g/dL (2.2-4.2); Glucose 137 mg/dL (74-106); Potassium 3.7 mmol/L (3.5-5.1); Protein, Total 7.4 g/dL (6.4-8.2); Sodium Level 138 mmol/L (136-145)
== END ==
LOC: OLS.ACH 05:00
PROVIDERS: PCP Family Medicine; Visit Provider Internal Medicine
DX: I50.20 Unspecified systolic (congestive) heart failure (principal); D64.9 Anemia, unspecified
CPT/HCPCS: 36415; 80053; 81001; 85027; 87077; 87086; 87088; 87186

== ENCOUNTER → 2024-05-16 05:00 | Outpatient (REF) | payer MEDICARE, MEDICAID, SELFPAY ==
[2024-05-16 08:55] LABS: Absolute Lymphocyte Count 2.26 X10^3/uL (0.83-4.51); Absolute Neutrophil Count 5.7 X10^3/uL (2.0-7.7); Basophil# 0.06 X10^3/uL; Basophil% 0.7 % (0-1); Eosinophil# 0.32 X10^3/uL; Eosinophils% 3.5 % (0-5); Hematocrit 32.3 % (37-47); Lymphocyte # 2.26 X10^3/ul (0.83-4.51); Mean Corpuscular Hgb 29.8 pg (27.0-32.0); Mean Corpuscular Volume 96.1 fL (81-99); Mean Platelet Vol. 14.1 fl (6.2-12.0); Monocyte# 0.64 X10^3/uL; Monocyte% 7.1 % (0-10); NRBC Flagged by Analyzer 0 % (0-5); Neutrophil # 5.74 X10^3/uL (2.7-7.7); Neutrophil % 63.4 % (47-70); Platelet Count 298 K/mm3 (150-450); Red Blood Count 3.36 M/mm3 (4.2-5.4); White Blood Count 9.1 K/mm3 (4.4-11.0)
[2024-05-16 12:00] LABS: Hemoglobin A1c 6.4 % (3.8-5.6)
== END ==
LOC: OLS.ACH 05:00
PROVIDERS: PCP Family Medicine; Visit Provider Internal Medicine
DX: E11.22 Type 2 diabetes mellitus with diabetic chronic kidney disease (principal); N18.9 Chronic kidney disease, unspecified; E11.40 Type 2 diabetes mellitus with diabetic neuropathy, unspecified; D72.829 Elevated white blood cell count, unspecified
CPT/HCPCS: 36415; 83036; 85025

== ENCOUNTER → 2024-06-08 | Outpatient (REF) | payer MEDICARE, MEDICAID, SELFPAY ==
[2024-06-08 08:57] LABS: Hematocrit 31.1 % (37-47); Hemoglobin 9.5 g/dL (12.0-15.0); Mean Corp Hgb Conc 30.5 g/dL (32-36); Mean Corpuscular Hgb 29.6 pg (27.0-32.0); Mean Corpuscular Volume 96.9 fL (81-99); Mean Platelet Vol. 15.3 fl (6.2-12.0); Platelet Count 230 K/mm3 (150-450); RBC Distribution Width CV 16.4 % (11.6-14.6); RBC Distribution Width SD 58.8 fl (35.1-43.9); Red Blood Count 3.21 M/mm3 (4.2-5.4); White Blood Count 24.8 K/mm3 (4.4-11.0)
[2024-06-08 09:25] LABS: ALB/GLOB Ratio 0.6 RATIO (0.9-2.4); AST(SGOT) 13 U/L (15-37); Alanine Aminotransfer ALT/SGPT 11 U/L (13-56); Albumin, Serum 2.7 g/dL (3.2-5.0); Alkaline Phosphatase 84 U/L (45-117); Anion Gap 7 (5-15); BUN 36 mg/dL (7-18); BUN/Creat Ratio 23.2 RATIO (10-20); Calcium,Total 9.4 mg/dL (8.5-10.1); Chloride 111 mmol/L (98-107); Creatinine, Serum 1.55 mg/dL (0.55-1.02); EST Glomerular Filtration Rate 34 mL/min (>60); Est Glom Filt Rate - Afr Amer 41 mL/min (>60); Globulin 4.7 g/dL (2.2-4.2); Glucose 225 mg/dL (74-106); Potassium 3.6 mmol/L (3.5-5.1); Protein, Total 7.4 g/dL (6.4-8.2); Sodium Level 143 mmol/L (136-145)
== END ==
LOC: OLS.ACH 05:00
PROVIDERS: PCP Family Medicine; Visit Provider Internal Medicine
DX: R50.9 Fever, unspecified (principal); R39.9 Unspecified symptoms and signs involving the genitourinary system
CPT/HCPCS: 36415; 80053; 85027